=== PATIENT | female | born 1935 | race Asian ===

== ENCOUNTER 2018-01-05 13:28 | Inpatient (IN) | payer MEDICARE, MEDICAID ==
[2018-01-05 15:24] LABS: BASOPHILE ABSOLUTE 0.1 Th/cumm (0-0.2); HEMOGLOBIN 11.1 gm/dL (12-16); LYMPHOCYTE ABSOLUTE 0.7 Th/cmm (1.5-3.0); MANUAL DIFF REQUIRED? YES; MEAN CELL VOLUME 87.5 fl (81-100); MEAN CORPUSCULAR HEMOGLOBIN 29.4 pg (27.0-31.0); MEAN CORPUSCULAR HGB CONC 33.6 pg (28.0-36.0); MEAN PLATELET VOLUME 7.3 fl; MONOCYTE ABSOLUTE 0.2 Th/cmm (0.3-1.0); NEUTROPHILE ABSOLUTE 13.3 Th/cmm (1.8-8.0); PLATELET COUNT 421 Th/cmm (150-400); RED BLOOD COUNT 3.78 Mil/cmm (3.80-5.20); RED CELL DISTRIBUTION WIDTH 16.1 % (11.5-20.0)
[2018-01-05 15:32] LABS: WHITE BLOOD COUNT 14.3 Th/cmm (4.8-10.8)
[2018-01-05 15:43] LABS: ALB/GLOB RATIO 1.1 (1.0-1.8); ALBUMIN 3.4 gm/dL (3.7-5.3); ALKALINE PHOSPHATASE 68 U/L (34-104); ANION GAP 11.7 (7.0-16.0); BILIRUBIN,TOTAL 0.6 mg/dL (0.3-1.0); BUN - UREA NITROGEN 25 mg/dL (7-25); CALCIUM SERUM 9.2 mg/dL (8.6-10.3); CARBON DIOXIDE 28.9 mEq/L (21.0-31.0); CHLORIDE 100 mEq/L (98-107); CHOLESTEROL 252 mg/dL (<200); CREATININE - SERUM 0.9 mg/dL (0.6-1.2); GLUCOSE 118 mg/dL (70-105); HDL -HIGH DENSITY LIPOPROTEIN 57 mg/dL (23-92); POTASSIUM SERUM 4.6 mEq/L (3.5-5.1); SGOT 14 U/L (13-39); SGPT/ALT 14 U/L (7-52); SODIUM SERUM 136 mEq/L (136-145); TOTAL PROTEIN,SERUM 6.6 gm/dL (6.0-8.3); TRIGLYCERIDES 93 mg/dL (<150)
[2018-01-05] MEDS ORDERED: Piperacillin Sodium/Tazobact 3.375 gm Vial IV ONE (16:25)
--- NOTE | 2018-01-05 16:26 | ER Physician Documentation ---
DATE OF SERVICE: EMERGENCY ROOM EVALUATION AND TREATMENT HISTORY OF PRESENT ILLNESS: This is Cantonese female patient, 82, lives in the correction at [facility]. She was brought by [facility] ambulance. The patient's physician is Dr. Casanova. JOB# [id number]
--- NOTE | 2018-01-05 17:11 | ER Physician Documentation ---
DATE OF SERVICE: 01/05/2018 EMERGENCY ROOM EVALUATION AND TREATMENT Triage was done on 1350 hours. The patient was seen at 1410 hours. The patient was brought here from [facility] under the guidance of Dr. Casanova. CHIEF COMPLAINT: Generalized weakness and the patient has had difficulty in breathing, hence the patient was sent over here. The patient does not speak any Prydein[place], she speaks only Cantonese language. The patient was brought over here. The patient herself cannot give any history. According to the daughter, she just gives a little history saying that she is awake and she is alert and she is not having psychosis or Alzheimer disease. HISTORY OF PRESENT ILLNESS: The patient has some generalized weakness in the lower extremity, moving and ambulation is difficult. Other histories are not available. The patient is known to have COPD and hypercapnia. The patient has chronic obstructive lung disease, hypercapnia. She has diabetes mellitus, hypertension, dementia, acute atrial fibrillation, history of respiratory failure. The patient came with this weakness and other findings and the patient has been here. After she came here, the blood pressure, I was told was low but the blood pressure here is 136/74, temperature 97.7, pulse is 99, respirations 18, and oxygen saturation 98%. OTHER HISTORY: Unable to obtain. PAST SURGICAL HISTORY: Unable to obtain. FAMILY HISTORY: Unable to obtain. REVIEW OF SYSTEMS: Unable to obtain. PHYSICAL EXAMINATION: GENERAL: The patient appears to be awake and alert and she closes her eyes. She is adequately built but poorly nourished. No other materials from the other hospital or rehabilitation places are here. The patient conjunctivae appears to be pale. She is not having any irregular movements of the arms or the legs. She has no epilepsy. She moves all the extremities. She is adequately built, poorly nourished. NECK: Neck veins are not distended. Jugular venous pressure is normal. No cyanosis. No petechia. No ecchymosis. CHEST: Reveals trachea to be central. Bilateral scattered rales audible in both the lung grace. The crackles are not heard like the crackles of congestive heart failure. His chest x-ray does not show evidence of congestive heart failure. She may be having chronic bronchitis with bronchiolitis which may be minor infections going on. There are peripheral pulses and sensory appears to be normal. LUNGS: She had bilateral crackles. No bronchial breathing is heard. There is fairly good air entry in both lungs. HEART: Reveals normal heart sounds. Second heart sound is physiologically split. Third heart sound is absent. Fourth heart sound is present. The patient has some irregularity, I can see on the EKG. Frequent PACs are being present and there is evidence that suggest frequent PACs, and there is a history of previous atrial fibrillation, so it is possible that she might be going into atrial fibrillation when she gets any infection in the lungs. CENTRAL NERVOUS SYSTEM: Otherwise grossly normal limits. Moves all the extremities. No evidence of any meningeal signs. CLINICAL IMPRESSION: The patient came with: 1. Hypotension. 2. Weakness. 3. The patient has frequent PACs. 4. Malnutrition. 5. Rule out if there is any pneumonia or any other infection present in her. Rule out if there is any hypothyroidism, electrolyte imbalance, etc. EKG was done, does not show any evidence of myocardial infarction, very, very minor nonspecific ST changes seen in lead V1, V2, not of any clinical significance. Once she gets the lab workup, which has been ordered, we will get more treatment given to her. At the present moment, the patient will be given some IV antibiotic to start with and lab workup has been ordered. [facility]# [id number]
[2018-01-05 17:18] LABS: URINE MICROSCOPIC INDICATED? YES; URINE SOURCE MIDSTREAM
[2018-01-05 17:19] LABS: URINE BILIRUBIN NEGATIVE (NEGATIVE); URINE BLOOD SMALL (NEGATIVE); URINE GLUCOSE (UA) NEGATIVE (NEGATIVE); URINE KETONE NEGATIVE (NEGATIVE); URINE LEUKOCYTE ESTERASE NEGATIVE (NEGATIVE); URINE NITRATE NEGATIVE (NEGATIVE); URINE PH 6.5 (4.6 - 8.0); URINE PROTEIN NEGATIVE (NEGATIVE); URINE UROBILINOGEN 0.2 E.U./dL (0.2 - 1.0)
[2018-01-05 17:38] LABS: URINE CLARITY CLEAR (CLEAR); URINE COLOR YELLOW
[2018-01-05 17:40] LABS: URINE BACTERIA NONE SEEN /hpf (NONE SEEN); URINE EPITHELIAL CELLS NONE SEEN /lpf (FEW); URINE WBC NONE SEEN /hpf (0-5)
[2018-01-05 20:18] LABS: BAND NEUTROPHILE 7 % (0-10); BASOPHIL 0 % (0-3); EOSINOPHIL 0 % (0-5); LYMPHOCYTE 5 % (20-50); MONOCYTE 5 % (2-10); NEUTROPHILS 83 % (40-80); PLATELET ESTIMATE ADEQUATE (NORMAL); PLATELET MORPHOLOGY NORMAL (NORMAL); TOTAL CELLS COUNTED 100
[2018-01-05 21:41] VITALS: BP 143/78
[2018-01-05] MEDS ORDERED: Ipratropium Neb 0.5 mg/2.5 mL UD HHN PRN (21:52)
[2018-01-05] MEDS: Ipratropium Neb 0.5 mg/2.5 mL UD HHN SCH (23:43)
[2018-01-06] MEDS ORDERED: Piperacillin Sodium/Tazobact 2.25 gm Vial IV ONE (02:44)
[2018-01-06] MEDS: Ipratropium Neb 0.5 mg/2.5 mL UD HHN SCH ×6 (03:28→23:31)
[2018-01-06] MEDS: INSULIN ASPART SLIDING SCALE 100 UNITS/ML UNIT SUBQ SCH ×4 (06:35→21:08)
[2018-01-06 06:38] LABS: HEMATOCRIT 33.2 % (41.0-60)
[2018-01-06 06:43] LABS: HEMOGLOBIN 11.5 gm/dL (12-16); MEAN CELL VOLUME 87.3 fl (81-100); MEAN CORPUSCULAR HEMOGLOBIN 30.2 pg (27.0-31.0); MEAN CORPUSCULAR HGB CONC 34.6 pg (28.0-36.0); MEAN PLATELET VOLUME 7.4 fl; PLATELET COUNT 431 Th/cmm (150-400); RED CELL DISTRIBUTION WIDTH 15.8 % (11.5-20.0)
[2018-01-06 06:44] LABS: WHITE BLOOD COUNT 15.1 Th/cmm (4.8-10.8)
[2018-01-06 06:45] LABS: MANUAL DIFF REQUIRED? YES
[2018-01-06 07:25] LABS: ALBUMIN 3.3 gm/dL (3.7-5.3); ALKALINE PHOSPHATASE 62 U/L (34-104); ANION GAP 12.5 (7.0-16.0); BILIRUBIN,TOTAL 0.9 mg/dL (0.3-1.0); BUN - UREA NITROGEN 27 mg/dL (7-25); CALCIUM SERUM 8.8 mg/dL (8.6-10.3); CARBON DIOXIDE 29.9 mEq/L (21.0-31.0); CHLORIDE 101 mEq/L (98-107); CHOLESTEROL 263 mg/dL (<200); GLUCOSE 86 mg/dL (70-105); HDL -HIGH DENSITY LIPOPROTEIN 51 mg/dL (23-92); POTASSIUM SERUM 3.4 mEq/L (3.5-5.1); SGOT 13 U/L (13-39); SGPT/ALT 13 U/L (7-52); SODIUM SERUM 140 mEq/L (136-145); TOTAL PROTEIN,SERUM 6.5 gm/dL (6.0-8.3); TRIGLYCERIDES 94 mg/dL (<150)
[2018-01-06 07:42] LABS: BAND NEUTROPHILE 3 % (0-10); LYMPHOCYTE 7 % (20-50); MONOCYTE 6 % (2-10); NEUTROPHILS 84 % (40-80); TOTAL CELLS COUNTED 100
--- NOTE | 2018-01-06 09:25 | Diagnostic Imaging Report ---
CHEST X-RAY: AP view INDICATION: Pneumonia COMPARISON: None FINDINGS: Chronic lung changes are seen with probable COPD. Increased bibasal lung markings are noted. No focal consolidation or effusions. Heart size is normal. Atherosclerosis is noted. Degenerative changes of the spine are noted. IMPRESSION: Chronic lung changes and probable COPD. Increased bibasilar lung markings also likely chronic in etiology. No focal consolidation identified. Atherosclerotic vascular disease.
--- NOTE | 2018-01-06 12:54 | Consultation ---
Consult Note - Consult Note Service Date: 01/06/18 Referring Physician: Willie Casanova Consult Note: PHYSICIAN Consultation Note: Date of Admission: 01/05/18 Purpose of Consultation: Chief Complaint: History of Present Illness: Patient SARAH ROGERS was admitted to [facility] Medical/Surgical Unit I with LEUKOCYTOSIS,ALOC. Past Medical History: Allergies Allergy/AdvReac Type Severity Reaction Status Date / Time Plastic Tape Allergy Uncoded 01/05/18 14:09 Vital Signs Temp 97.4 F 01/06/18 08:00 Pulse 95 01/06/18 11:06 Resp 12 01/06/18 11:06 BP 143/78 01/06/18 08:00 Pulse Ox 96 01/06/18 11:06 Intake & Output 01/05/18 01/06/18 01/06/18 18:59 06:59 18:59 Intake Total 50 Balance 50 Weight (lbs) 32.568 kg Intake: Intake, IV Amount 50 Piperacillin Sodium/ 50 Tazobact 2.25 gm In Sodium Chloride 0.9% 50 ml @ 100 mls/hr IV 0200, 0800,1400,2000 [facility] Rx#: [id number] Other: # Voids 2 Laboratory Results - last 24 hr 01/05/18 01/06/18 01/06/18 21:04 05:41 06:26 WBC 15.1 H RBC 3.80 Hgb 11.5 L Hct 33.2 L MCV 87.3 MCH 30.2 MCHC Differential 34.6 RDW 15.8 Plt Count 431 H MPV 7.4 Band Neutrophils % 3 Neutrophils (Manual) 84 H Lymphocytes 7 L Monocytes 6 Sodium Potassium Chloride Carbon Dioxide Anion Gap BUN Creatinine Est GFR ( Amer) Est GFR (Non-Af Amer) BUN/Creatinine Ratio Glucose POC Glucose 101 89 Calcium Total Bilirubin AST ALT Alkaline Phosphatase Total Protein Albumin Globulin Albumin/Globulin Ratio Triglycerides Cholesterol LDL Cholesterol Direct HDL Cholesterol 01/06/18 01/06/18 06:26 11:37 WBC RBC Hgb Hct MCV MCH MCHC Differential RDW Plt Count MPV Band Neutrophils % Neutrophils (Manual) Lymphocytes Monocytes Sodium 140 Potassium 3.4 L Chloride 101 Carbon Dioxide 29.9 Anion Gap 12.5 BUN 27 H Creatinine 1.0 Est GFR ( Amer) TNP Est GFR (Non-Af Amer) TNP BUN/Creatinine Ratio 27.0 Glucose 86 POC Glucose 132 H Calcium 8.8 Total Bilirubin 0.9 AST 13 ALT 13 Alkaline Phosphatase 62 Total Protein 6.5 Albumin 3.3 L Globulin 3.2 Albumin/Globulin Ratio 1.0 Triglycerides 94 Cholesterol 263 H LDL Cholesterol Direct 230 H HDL Cholesterol 51 Home Medication Medication Instructions Recorded Type Acetaminophen 325 mg PO Q4HR PRN 01/05/18 History Al Hyd/Mg Hyd/Simethicone [Maalox] 30 ml PO Q6HR PRN 01/05/18 History Ascorbic Acid [Vitamin C] 500 mg PO DAILY 01/05/18 History Bisacodyl [Dulcolax 10 Mg Supp] 10 mg RC DAILY PRN 01/05/18 History Dextrose Oral Gel [Glutose 40%] 15 gm PO PRN PRN 01/05/18 History Enalapril Maleate [Vasotec*] 2.5 mg PO Q6H PRN 01/05/18 History Fleet Enema [Fleet Enema] 135 ml RC DAILY PRN 01/05/18 History Glucagon,Human Recombinant 1 mg IJ PRN PRN 01/05/18 History [Glucagon Emergency Kit] Insulin Human Regular [NovoLIN R] 0 units SUBQ Q6H 01/05/18 History Ipratropium Neb 0.5 mg/2.5 mL 0.5 mg HHN Q8H PRN 01/05/18 History [Atrovent Neb 0.5MG/2.5ML] Levalbuterol HCl [Xopenex] 0.63 mg IH Q4HR 01/05/18 History Magnesium Hydroxide [Milk of 30 ml PO DAILY PRN 01/05/18 History Magnesia] Megestrol Acetate [Megace] 10 ml PO BID 01/05/18 History Multivitamin [Theragran] 1 tab PO DAILY 01/05/18 History Nystatin 1 each TP QSHIFT 01/05/18 History Omeprazole 40 mg PO DAILY 01/05/18 History Ondansetron HCl [Zofran*] 4 mg PO Q6H PRN 01/05/18 History Pantoprazole [Protonix] 40 mg PO DAILY 01/05/18 History Prednisone [Deltasone] 20 mg PO DAILY 01/05/18 History QUEtiapine Fumarate [SEROquel] 25 mg PO BID 01/05/18 History Zolpidem Tartrate [Ambien] 5 mg PO HS PRN 01/05/18 History cloNIDine HCl [Catapres] 0.1 mg PO DAILY 01/05/18 History Current Medications Generic Name Dose Route Start Last Admin Trade Name Freq PRN Reason Stop Dose Admin Acetaminophen 325 mg 01/05/18 21:51 Tylenol PO 03/06/18 21:50 Q4H PRN MILD PAIN/TEMP ABOVE 101 Enalapril Maleate 2.5 mg 01/05/18 21:48 Vasotec PO 03/07/18 00:00 Q6HR PRN FOR SPB ABOVE 160 Vancomycin HCl 1 gm/ Sodium 250 mls @ 165 mls/hr 01/05/18 21:35 Chloride IV 03/06/18 21:34 Q24H HARRIET Piperacillin Sod/Tazobactam 50 mls @ 100 mls/hr 01/06/18 02:00 01/06/18 08:51 Sod 2.25 gm/ Sodium Chloride IV 03/07/18 01:59 100 mls/hr 0200,0800,1400,2000 HARRIET Administration Insulin Aspart 0 units 01/06/18 07:30 01/06/18 12:50 Novolog Insulin Sliding Scale SUBQ 03/07/18 07:29 Not Given ACHS HARRIET Protocol Ipratropium [place] 0.5 mg 01/05/18 21:52 Atrovent Neb 0.5mg/2.5ml N 03/07/18 00:59 Q6HRT PRN Shortness of Breath Ipratropium [place] 0.5 mg 01/05/18 23:00 01/06/18 11:05 Atrovent Neb 0.5mg/2.5ml N 03/06/18 22:59 0.5 mg Q4HRT HARRIET Administration Review of Systems: A 12 point ROS was reviewed with the pertinent positive and negatives noted in the HPI. Social History Smoking Status Smoker, status unknown Drug Use No Alcohol Use No Family Medical History Family Medical History Start: 01/05/18 19: 43 Freq: ONCE Status: Active Document 01/05/18 23:18 SURESH (Rec: 01/05/18 23:18 SURESH [id number]) Family Medical History Father History Unknown Yes Physical Exam: General: Comfortable, well-nourished. Confused. Supple, no Tia, no icterus. Muscles. HEENT: Head: Normocytic, atraumatic. Oral cavity: Moist, pink eyes: Pallor is present icterus. Neck: Supple, no JVD TO be. Cardio: S1 and S2 within normal limits regular rhythm. Respiratory: Vesicular breath sound, no crackles no wheezing. Abdominal: Soft, nontender nondistended Genital/Urinary: Deferred Extremities: No cyanosis, no clubbing, no edema. Neurological: Alert and confused. Assessment: 1. UTI. 2. Leukocytosis. 3. Dementia Plan: Continue Zosyn and discontinue vancomycin. Follow the cultures. Thank you, Dr. Casanova, for involving taking care of this patient Signed, Inocencio Gutierrez M.D. [id number]
--- NOTE | 2018-01-06 14:08 | Consultation ---
Consult Note - Consult Note Service Date: 01/06/18 Referring Physician: Willie Casanova Consult Note: PHYSICIAN Consultation Note: Date of Admission: 01/05/18 Purpose of Consultation: Chief Complaint: Patient SARAH ROGERS was admitted to location Medical/Surgical Unit I with LEUKOCYTOSIS,ALOC. History of Present Illness:52-year-old female with a past medical history of dementia, confusion noted from nursing facility for generalized weakness. On initial evaluation, her temperature was 97.7F and her WBC count was 14,000. Sepsis workup was performed and urinalysis is a 68. Patient was started on vancomycin and Zosyn. ID consult was called for antibiotic management. Past Medical History: Dementia, COPD. Allergies Allergy/AdvReac Type Severity Reaction Status Date / Time Plastic Tape Allergy Uncoded 01/05/18 14:09 Vital Signs Temp 97.4 F 01/06/18 08:00 Pulse 95 01/06/18 11:06 Resp 12 01/06/18 11:06 BP 143/78 01/06/18 08:00 Pulse Ox 96 01/06/18 11:06 Intake & Output 01/05/18 01/06/18 01/06/18 18:59 06:59 18:59 Intake Total 50 50 Balance 50 50 Weight (lbs) 32.568 kg Intake: Intake, IV Amount 50 50 Piperacillin Sodium/ 50 50 Tazobact 2.25 gm In Sodium Chloride 0.9% 50 ml @ 100 mls/hr IV 0200, 0800,1400,2000 [facility] Rx#: [id number] Other: # Voids 2 Laboratory Results - last 24 hr 01/05/18 01/06/18 01/06/18 21:04 05:41 06:26 WBC 15.1 H RBC 3.80 Hgb 11.5 L Hct 33.2 L MCV 87.3 MCH 30.2 MCHC Differential 34.6 RDW 15.8 Plt Count 431 H MPV 7.4 Band Neutrophils % 3 Neutrophils (Manual) 84 H Lymphocytes 7 L Monocytes 6 Sodium Potassium Chloride Carbon Dioxide Anion Gap BUN Creatinine Est GFR ( Amer) Est GFR (Non-Af Amer) BUN/Creatinine Ratio Glucose POC Glucose 101 89 Calcium Total Bilirubin AST ALT Alkaline Phosphatase Total Protein Albumin Globulin Albumin/Globulin Ratio Triglycerides Cholesterol LDL Cholesterol Direct HDL Cholesterol 01/06/18 01/06/18 06:26 11:37 WBC RBC Hgb Hct MCV MCH MCHC Differential RDW Plt Count MPV Band Neutrophils % Neutrophils (Manual) Lymphocytes Monocytes Sodium 140 Potassium 3.4 L Chloride 101 Carbon Dioxide 29.9 Anion Gap 12.5 BUN 27 H Creatinine 1.0 Est GFR ( Amer) TNP Est GFR (Non-Af Amer) TNP BUN/Creatinine Ratio 27.0 Glucose 86 POC Glucose 132 H Calcium 8.8 Total Bilirubin 0.9 AST 13 ALT 13 Alkaline Phosphatase 62 Total Protein 6.5 Albumin 3.3 L Globulin 3.2 Albumin/Globulin Ratio 1.0 Triglycerides 94 Cholesterol 263 H LDL Cholesterol Direct 230 H HDL Cholesterol 51 Home Medication Medication Instructions Recorded Type Acetaminophen 325 mg PO Q4HR PRN 01/05/18 History Al Hyd/Mg Hyd/Simethicone [Maalox] 30 ml PO Q6HR PRN 01/05/18 History Ascorbic Acid [Vitamin C] 500 mg PO DAILY 01/05/18 History Bisacodyl [Dulcolax 10 Mg Supp] 10 mg RC DAILY PRN 01/05/18 History Dextrose Oral Gel [Glutose 40%] 15 gm PO PRN PRN 01/05/18 History Enalapril Maleate [Vasotec*] 2.5 mg PO Q6H PRN 01/05/18 History Fleet Enema [Fleet Enema] 135 ml RC DAILY PRN 01/05/18 History Glucagon,Human Recombinant 1 mg IJ PRN PRN 01/05/18 History [Glucagon Emergency Kit] Insulin Human Regular [NovoLIN R] 0 units SUBQ Q6H 01/05/18 History Ipratropium Neb 0.5 mg/2.5 mL 0.5 mg HHN Q8H PRN 01/05/18 History [Atrovent Neb 0.5MG/2.5ML] Levalbuterol HCl [Xopenex] 0.63 mg IH Q4HR 01/05/18 History Magnesium Hydroxide [Milk of 30 ml PO DAILY PRN 01/05/18 History Magnesia] Megestrol Acetate [Megace] 10 ml PO BID 01/05/18 History Multivitamin [Theragran] 1 tab PO DAILY 01/05/18 History Nystatin 1 each TP QSHIFT 01/05/18 History Omeprazole 40 mg PO DAILY 01/05/18 History Ondansetron HCl [Zofran*] 4 mg PO Q6H PRN 01/05/18 History Pantoprazole [Protonix] 40 mg PO DAILY 01/05/18 History Prednisone [Deltasone] 20 mg PO DAILY 01/05/18 History QUEtiapine Fumarate [SEROquel] 25 mg PO BID 01/05/18 History Zolpidem Tartrate [Ambien] 5 mg PO HS PRN 01/05/18 History cloNIDine HCl [Catapres] 0.1 mg PO DAILY 01/05/18 History Current Medications Generic Name Dose Route Start Last Admin Trade Name Freq PRN Reason Stop Dose Admin Acetaminophen 325 mg 01/05/18 21:51 Tylenol PO 03/06/18 21:50 Q4H PRN MILD PAIN/TEMP ABOVE 101 Enalapril Maleate 2.5 mg 01/05/18 21:48 Vasotec PO 03/07/18 00:00 Q6HR PRN FOR SPB ABOVE 160 Vancomycin HCl 1 gm/ Sodium 250 mls @ 165 mls/hr 01/05/18 21:35 Chloride IV 03/06/18 21:34 Q24H HARRIET Piperacillin Sod/Tazobactam 50 mls @ 100 mls/hr 01/06/18 02:00 01/06/18 13:29 Sod 2.25 gm/ Sodium Chloride IV 03/07/18 01:59 100 mls/hr 0200,0800,1400,2000 HARRIET Administration Insulin Aspart 0 units 01/06/18 07:30 01/06/18 12:50 Novolog Insulin Sliding Scale SUBQ 03/07/18 07:29 Not Given ACHS [facility] Protocol Ipratropium [place] 0.5 mg 01/05/18 21:52 Atrovent Neb 0.5mg/2.5ml N 03/07/18 00:59 Q6HRT PRN Shortness of Breath Ipratropium [place] 0.5 mg 01/05/18 23:00 01/06/18 11:05 Atrovent Neb 0.5mg/2.5ml N 03/06/18 22:59 0.5 mg Q4HRT HARRIET Administration Review of Systems: A 12 point ROS was reviewed with the pertinent positive and negatives noted in the HPI. Social History Smoking Status Smoker, status unknown Drug Use No Alcohol Use No Family Medical History Family Medical History Start: 01/05/18 19: 43 Freq: ONCE Status: Active Document 01/05/18 23:18 SURESH (Rec: 01/05/18 23:18 SURESH [id number]) Family Medical History Father History Unknown Yes General: Comfortable, well-nourished. Confused. Supple, no Tia, no icterus. Muscles. HEENT: Head: Normocytic, atraumatic. Oral cavity: Moist, pink eyes: Pallor is present icterus. Neck: Supple, no JVD TO be. Cardio: S1 and S2 within normal limits regular rhythm. Respiratory: Vesicular breath sound, no crackles no wheezing. Abdominal: Soft, nontender nondistended Genital/Urinary: Deferred Extremities: No cyanosis, no clubbing, no edema. Neurological: Alert and confused. Assessment: 1. UTI. 2. Leukocytosis. 3. Dementia Plan: Continue Zosyn and discontinue vancomycin. Follow the cultures. Thank you, Dr. Casanova, for involving me in taking care of this patient Signed, Inocencio Gutierrez M.D. [id number]
[2018-01-06] MEDS ORDERED: ENALAPRIL MALEATE 2.5 MG PO PRN (14:17)
[2018-01-06] MEDS ORDERED: Fleet Enema 135 mL RC PRN (14:17)
[2018-01-06] MEDS ORDERED: Non-Formulary Item 1 EA (Ondansetron Hcl [Zofran*] 4 MG) PO PRN (14:17)
[2018-01-06] MEDS ORDERED: Magnesium Hydroxide (MOM) 30 mL UDC PO PRN (14:17)
[2018-01-06] MEDS ORDERED: Maalox 30 mL Cup PO PRN (14:17)
[2018-01-06] MEDS ORDERED: Non-Formulary Item 1 EA (Glucagon,Human Recombinant [Glucagon Emergency Kit] 1 MG) IJ PRN (14:17)
[2018-01-06] MEDS ORDERED: Ipratropium Neb 0.5 mg/2.5 mL UD HHN PRN (14:17)
[2018-01-06] MEDS ORDERED: INSULIN HUMAN REGULAR 100 UNITS/ML UNIT SUBQ SCH (14:30)
--- NOTE | 2018-01-06 14:43 | Consultation ---
Consult Note - Consult Note Service Date: 01/06/18 Referring Physician: Willie Casanova Consult Note: PHYSICIAN Consultation Note: Date of Admission: 01/05/18 Purpose of Consultation: Pneumonia. Chief Complaint: Patient SARAH ROGERS was admitted to location [facility] Unit I with LEUKOCYTOSIS,ALOC. History of Present Illness: 52-year-old female with a past medical history of dementia, noted from nursing facility for generalized weakness. On initial evaluation, her temperature was 97.7F and her WBC count was 14,000. Sepsis workup was performed. Patient was started on vancomycin and Zosyn. ID consult was called for antibiotic management. Chest x-ray showed chronic infiltrates. Past Medical History: Allergies Allergy/AdvReac Type Severity Reaction Status Date / Time Plastic Tape Allergy Uncoded 01/05/18 14:09 Vital Signs Temp 97.4 F 01/06/18 08:00 Pulse 95 01/06/18 11:06 Resp 12 01/06/18 11:06 BP 143/78 01/06/18 08:00 Pulse Ox 96 01/06/18 11:06 Intake & Output 01/05/18 01/06/18 01/06/18 18:59 06:59 18:59 Intake Total 50 50 Balance 50 50 Weight (lbs) 32.568 kg Intake: Intake, IV Amount 50 50 Piperacillin Sodium/ 50 50 Tazobact 2.25 gm In Sodium Chloride 0.9% 50 ml @ 100 mls/hr IV 0200, 0800,1400,2000 [facility] Rx#: [id number] Other: # Voids 2 Laboratory Results - last 24 hr 01/05/18 01/06/18 01/06/18 21:04 05:41 06:26 WBC 15.1 H RBC 3.80 Hgb 11.5 L Hct 33.2 L MCV 87.3 MCH 30.2 MCHC Differential 34.6 RDW 15.8 Plt Count 431 H MPV 7.4 Band Neutrophils % 3 Neutrophils (Manual) 84 H Lymphocytes 7 L Monocytes 6 Sodium Potassium Chloride Carbon Dioxide Anion Gap BUN Creatinine Est GFR ( Amer) Est GFR (Non-Af Amer) BUN/Creatinine Ratio Glucose POC Glucose 101 89 Calcium Total Bilirubin AST ALT Alkaline Phosphatase Total Protein Albumin Globulin Albumin/Globulin Ratio Triglycerides Cholesterol LDL Cholesterol Direct HDL Cholesterol 01/06/18 01/06/18 06:26 11:37 WBC RBC Hgb Hct MCV MCH MCHC Differential RDW Plt Count MPV Band Neutrophils % Neutrophils (Manual) Lymphocytes Monocytes Sodium 140 Potassium 3.4 L Chloride 101 Carbon Dioxide 29.9 Anion Gap 12.5 BUN 27 H Creatinine 1.0 Est GFR ( Amer) TNP Est GFR (Non-Af Amer) TNP BUN/Creatinine Ratio 27.0 Glucose 86 POC Glucose 132 H Calcium 8.8 Total Bilirubin 0.9 AST 13 ALT 13 Alkaline Phosphatase 62 Total Protein 6.5 Albumin 3.3 L Globulin 3.2 Albumin/Globulin Ratio 1.0 Triglycerides 94 Cholesterol 263 H LDL Cholesterol Direct 230 H HDL Cholesterol 51 Home Medication Medication Instructions Recorded Type Acetaminophen 325 mg PO Q4HR PRN 01/05/18 History Al Hyd/Mg Hyd/Simethicone [Maalox] 30 ml PO Q6HR PRN 01/05/18 History Ascorbic Acid [Vitamin C] 500 mg PO DAILY 01/05/18 History Bisacodyl [Dulcolax 10 Mg Supp] 10 mg RC DAILY PRN 01/05/18 History Dextrose Oral Gel [Glutose 40%] 15 gm PO PRN PRN 01/05/18 History Enalapril Maleate [Vasotec*] 2.5 mg PO Q6H PRN 01/05/18 History Fleet Enema [Fleet Enema] 135 ml RC DAILY PRN 01/05/18 History Glucagon,Human Recombinant 1 mg IJ PRN PRN 01/05/18 History [Glucagon Emergency Kit] Insulin Human Regular [NovoLIN R] 0 units SUBQ Q6H 01/05/18 History Ipratropium Neb 0.5 mg/2.5 mL 0.5 mg HHN Q8H PRN 01/05/18 History [Atrovent Neb 0.5MG/2.5ML] Levalbuterol HCl [Xopenex] 0.63 mg IH Q4HR 01/05/18 History Magnesium Hydroxide [Milk of 30 ml PO DAILY PRN 01/05/18 History Magnesia] Megestrol Acetate [Megace] 10 ml PO BID 01/05/18 History Multivitamin [Theragran] 1 tab PO DAILY 01/05/18 History Nystatin 1 each TP QSHIFT 01/05/18 History Omeprazole 40 mg PO DAILY 01/05/18 History Ondansetron HCl [Zofran*] 4 mg PO Q6H PRN 01/05/18 History Pantoprazole [Protonix] 40 mg PO DAILY 01/05/18 History Prednisone [Deltasone] 20 mg PO DAILY 01/05/18 History QUEtiapine Fumarate [SEROquel] 25 mg PO BID 01/05/18 History Zolpidem Tartrate [Ambien] 5 mg PO HS PRN 01/05/18 History cloNIDine HCl [Catapres] 0.1 mg PO DAILY 01/05/18 History Current Medications Generic Name Dose Route Start Last Admin Trade Name Freq PRN Reason Stop Dose Admin Acetaminophen 325 mg 01/05/18 21:51 Tylenol PO 03/06/18 21:50 Q4H PRN MILD PAIN/TEMP ABOVE 101 Acetaminophen 325 mg 01/06/18 14:17 Tylenol PO 03/07/18 14:16 Q4HR PRN Pain or Fever >101 Al Hydrox/Mg Hydrox/Simethicone 30 ml 01/06/18 14:17 Maalox PO 03/07/18 14:16 Q6HR PRN Indigestion Ascorbic Acid 500 mg 01/07/18 09:00 Vitamin C PO 03/08/18 08:59 DAILY [facility] Bisacodyl 10 mg 01/06/18 14:17 Dulcolax 10 Mg Supp RC 03/07/18 14:16 DAILY PRN Constipation Dextrose 15 gm 01/06/18 14:17 Glutose 40% PO 03/07/18 14:16 PRN PRN Hypoglycemia Enalapril Maleate 2.5 mg 01/05/18 21:48 Vasotec PO 03/07/18 00:00 Q6HR PRN FOR SPB ABOVE 160 Vancomycin HCl 1 gm/ Sodium 250 mls @ 165 mls/hr 01/05/18 21:35 Chloride IV 03/06/18 21:34 Q24H [facility] Piperacillin Sod/Tazobactam 50 mls @ 100 mls/hr 01/06/18 02:00 01/06/18 13:29 Sod 2.25 gm/ Sodium Chloride IV 03/07/18 01:59 100 mls/hr 0200,0800,1400,2000 [facility] Administration Insulin Aspart 0 units 01/06/18 07:30 01/06/18 12:50 Novolog Insulin Sliding Scale SUBQ 03/07/18 07:29 Not Given ACHS [facility] Protocol Insulin Human Regular 0 units 01/06/18 14:30 Novolin R SUBQ 03/07/18 14:29 Q6H [facility] Protocol Ipratropium [place] 0.5 mg 01/05/18 21:52 Atrovent Neb 0.5mg/2.5ml N 03/07/18 00:59 Q6HRT PRN Shortness of Breath Ipratropium [place] 0.5 mg 01/05/18 23:00 01/06/18 11:05 Atrovent Neb 0.5mg/2.5ml HHN 03/06/18 22:59 0.5 mg Q4HRT [facility] Administration Ipratropium [place] 0.5 mg 01/06/18 14:17 Atrovent Neb 0.5mg/2.5ml N 03/07/18 14:16 Q8H PRN COPD Magnesium Hydroxide 30 ml 01/06/18 14:17 Milk Of Magnesia PO 03/07/18 14:16 DAILY PRN Constipation Miscellaneous 2.5 mg 01/06/18 14:17 Enalapril Maleate [Vasotec*] PO Q6H PRN Hypertension Miscellaneous 1 mg 01/06/18 14:17 Glucagon,Human Recombinant [Glucagon Emergency Kit] IJ PRN PRN Hypoglycemia Miscellaneous 0.63 mg 01/06/18 16:00 Levalbuterol Hcl [Xopenex] IH 03/07/18 15:59 Q4HR [facility] Miscellaneous 10 ml 01/06/18 17:00 Megestrol Acetate [Megace] PO 03/07/18 16:59 BID [facility] Miscellaneous 1 each 01/06/18 20:00 Nystatin [Nystatin] TP 03/07/18 19:59 QSHIFT [facility] Miscellaneous 40 mg 01/07/18 09:00 Omeprazole [Omeprazole] PO 03/08/18 08:59 DAILY [facility] Miscellaneous 4 mg 01/06/18 14:17 Ondansetron Hcl [Zofran*] PO Q6H PRN Nausea Miscellaneous 20 mg 01/07/18 09:00 Prednisone [Deltasone] PO 03/08/18 08:59 DAILY [facility] Multivitamins/Vitamin C 1 tab 01/07/18 09:00 Theragran PO 03/08/18 08:59 DAILY [facility] Pantoprazole Sodium 40 mg 01/07/18 09:00 Protonix PO 03/08/18 08:59 DAILY [facility] Quetiapine Fumarate 25 mg 01/06/18 17:00 Seroquel PO 03/07/18 16:59 BID [facility] Protocol Sodium Phosphate 135 ml 01/06/18 14:17 Fleet Enema RC 03/07/18 14:16 DAILY PRN Constipation Zolpidem Tartrate 5 mg 01/06/18 14:17 Ambien PO 03/07/18 14:16 HS PRN Insomnia Review of Systems: A 12 point ROS was reviewed with the pertinent positive and negatives noted in the HPI. Social History Smoking Status Smoker, status unknown Drug Use No Alcohol Use No Family Medical History Family Medical History Start: 01/05/18 19: 43 Freq: ONCE Status: Active Document 01/05/18 23:18 SURESH (Rec: 01/05/18 23:18 SURESH [id number]) Family Medical History Father History Unknown Yes Physical Exam: General: Comfortable, well-nourished. Confused. Supple, no Tia, no icterus. Muscles. HEENT: Head: Normocytic, atraumatic. Oral cavity: Moist, pink eyes: Pallor is present icterus. Neck: Supple, no JVD TO be. Cardio: S1 and S2 within normal limits regular rhythm. Respiratory: Vesicular breath sound, no crackles no wheezing. Abdominal: Soft, nontender nondistended Genital/Urinary: Deferred Extremities: No cyanosis, no clubbing, no edema. Neurological: Alert and awake. Assessment: 1. Leukocytosis. 2. Pneumonia. 3. Dementia Plan: Change antibiotic to Levaquin. Follow the cultures. Thank you, Dr. Casanova, for involving me in taking care of this patient Signed, Inocencio Gutierrez M.D. [id number]
[2018-01-06] MEDS ORDERED: GLUCAGON HCl 1 MG KIT IM PRN (15:48)
[2018-01-06] MEDS ORDERED: Non-Formulary Item 1 EA (Levalbuterol Hcl [Xopenex] 0.63 MG) IH SCH (16:00)
[2018-01-06] MEDS ORDERED: MEGESTROL ACETATE PO SCH (17:00)
--- NOTE | 2018-01-06 17:05 | History & Physical ---
ADMIT DATE: 01/05/2018 HISTORY OF PRESENT ILLNESS: The patient is an 82-year-old female patient was brought to the Emergency Room with altered level of consciousness, history of dementia, was found to have pneumonia. A 82-year-old female patient, patient was recently admitted at [facility], was at [place] now and apparently developed slight fever and the patient was altered. The patient was sent to the ER in [place] where a workup was done, which showed white count was 14,000 and chest x-ray showed some infiltrate, acute on chronic and the patient was started on vancomycin and Zosyn and the patient was admitted. PAST MEDICAL HISTORY: As enumerated above, prior history of hypertension and the patient has history of dementia. PHYSICAL EXAMINATION: GENERAL: The patient is comfortable, was confused. HEENT: Normal. NECK: Supple, nontender. LUNGS: Clear. CARDIOVASCULAR SYSTEM: S1, S2 heard. ABDOMEN: Soft. Bowel sounds are heard. CENTRAL NERVOUS SYSTEM: Grossly normal, alert, awake. DIAGNOSES: 1. Leukocytosis. 2. Altered level of consciousness, possible sepsis, history of pneumonia, dementia. PLAN: The patient will be admitted and I will continue the antibiotic and will have Dr. Inocencio Gutierrez see the patient. I will follow the patient. [facility]# [id number]
[2018-01-06] MEDS: Levofloxacin 250mg/50mL 250 MG/50 ML BAG IV SCH (17:15)
[2018-01-06] MEDS ORDERED: Non-Formulary Item 1 EA (Nystatin [Nystatin] 1 EACH) TP SCH (20:00)
[2018-01-06] MEDS: NYSTATIN 100000 UNITS/GM POWD TP SCH (21:00)
[2018-01-07] MEDS: Ipratropium Neb 0.5 mg/2.5 mL UD HHN SCH ×6 (03:00→22:54)
[2018-01-07 06:45] LABS: ANION GAP 11.1 (7.0-16.0); BUN - UREA NITROGEN 31 mg/dL (7-25); CALCIUM SERUM 8.2 mg/dL (8.6-10.3); CARBON DIOXIDE 27.8 mEq/L (21.0-31.0); CHLORIDE 104 mEq/L (98-107); CREATININE - SERUM 0.9 mg/dL (0.6-1.2); GLUCOSE 88 mg/dL (70-105); MAGNESIUM 2.2 mg/dL (1.9-2.7); SODIUM SERUM 140 mEq/L (136-145)
[2018-01-07 06:50] LABS: POTASSIUM SERUM 2.9 mEq/L (3.5-5.1)
[2018-01-07] MEDS: INSULIN ASPART SLIDING SCALE 100 UNITS/ML UNIT SUBQ SCH ×4 (06:59→22:00)
[2018-01-07] MEDS ORDERED: Potassium Chloride 20 mEq ER Tab PO ONE (07:03)
--- NOTE | 2018-01-07 08:01 | Consultation ---
DATE OF CONSULTATION: 01/05/2018 HISTORY OF PRESENT ILLNESS: This is an 82-year-old female was seen and examined. The patient was admitted to the Emergency Room with altered level of consciousness, transferred from custodial. There is a history of recent pneumonia. We have evaluated in the Emergency Room and then admitted. She was found to have leukocytosis, WBC count was 14,000. Chest x-ray has shown some infiltrate. The patient does have a history of COPD, history of hypertension, history of hyperlipidemia, dementia. PAST MEDICAL HISTORY: Not available from the patient. FAMILY HISTORY: Not available from the patient. SOCIAL HISTORY: Not available from the patient. REVIEW OF SYSTEMS: Not available from the patient. PHYSICAL EXAMINATION: VITAL SIGNS: Heart rate is 105, blood pressure is 143/78, the highest blood pressure was 179/90, respirations 18, temperature 97.4. SKIN: Normal. HEAD: Normocephalic. EYES: Conjunctivae were pink. There is no icterus in the eyes. Pupils equally reactive to light. NECK: There was no increased jugular venous distention, no thyromegaly, no lymphadenopathy. Carotids equal both sides. CHEST: Bilaterally symmetrical. Moved well with respiration. Respiratory movements equal both sides. Trachea is central. There is note to percussion. Breath sound revealed bilateral rales. CARDIOVASCULAR SYSTEM: PMI not well localized and no pulsation or thrill. No parasternal heave. S1 normal. S2 physiologic. There was no S3, no rub. ABDOMEN: Soft, no tenderness, no rigidity, no guarding and no organomegaly. Bowel sounds normal. EXTREMITIES: No edema. No calf tenderness. Peripheral pulses diminished. LABORATORY AND DIAGNOSTIC DATA: On reviewing the chart, chest x-ray has shown chronic lung changes, probably COPD, increased bibasilar lung markings, most likely chronic in etiology, arteriosclerotic vascular disease. WBC count is 15.1, hemoglobin 11.5, hematocrit 32.2, platelet count 431. Sodium 140, potassium 3.4, chloride 101, CO2 29.9, BUN 27, creatinine 1.0. Cholesterol was 263, triglyceride 94, HDL 51, LDL 230, T4 was 1.40. TSH 0.21. Lactic acid 1.41, magnesium 2.2. BNP 47.4. Troponin 0.04. IMPRESSION: Altered level of consciousness, pneumonia, leukocytosis, COPD, hypertension, hyperlipidemia, dementia. Suggest to continue present management. We will get echocardiogram to evaluate left ventricular function and valvular structure and also get TSH. We will add Crestor 20 mg daily for hyperlipidemia. Aspirin may be added if no contraindication. The patient should be on beta vini and ARB. Thank you. We will follow with you as needed. Dr. Alexandre Gutierrez will be following her. JOB# [id number]
[2018-01-07] MEDS: NYSTATIN 100000 UNITS/GM POWD TP SCH ×2 (08:50→21:00)
[2018-01-07] MEDS: Multivitamin Tab PO SCH (08:51)
[2018-01-07] MEDS: Pantoprazole 40 mg EC Tab PO SCH (08:51)
[2018-01-07] MEDS ORDERED: Pantoprazole 40 mg/Packet PO SCH (09:00)
[2018-01-07] MEDS ORDERED: PREDNISONE 20 MG PO SCH (09:00)
[2018-01-07] MEDS ORDERED: Non-Formulary Item 1 EA (Omeprazole [Omeprazole] 40 MG) PO SCH (09:00)
--- NOTE | 2018-01-07 12:24 | Internal Medicine Prog Note ---
Internal Medicine Subjective - Subjective Service Date: 01/07/18 Patient seen and examined:: with staff Patient is:: awake Per staff patient has:: tolerating meds Internal Medicine Objective - Results Result Diagrams: 01/06/18 06:26 01/07/18 05:42 Recent Labs: Laboratory Last Values WBC 15.1 Th/cmm (4.8-10.8) H 01/06/18 06:26 RBC 3.80 Mil/cmm (3.80-5.20) 01/06/18 06:26 Hgb 11.5 gm/dL (12-16) L 01/06/18 06:26 Hct 33.2 % (41.0-60) L 01/06/18 06:26 MCV 87.3 fl (81-100) 01/06/18 06:26 MCH 30.2 pg (27.0-31.0) 01/06/18 06: MCHC Differential 34.6 pg (28.0-36.0) 01/06/18 06:26 RDW 15.8 % (11.5-20.0) 01/06/18 06:26 Plt Count 431 Th/cmm (150-400) H 01/06/18 06:26 MPV 7.4 fl 01/06/18 06:26 Band Neutrophils % 3 % (0-10) 01/06/18 06:26 Neutrophils (Manual) 84 % (40-80) H 01/06/18 06:26 Lymphocytes 7 % (20-50) L 01/06/18 06:26 Monocytes 6 % (2-10) 01/06/18 06:26 Eosinophils 0 % (0-5) 01/05/18 15:14 Basophils 0 % (0-3) 01/05/18 15:14 Platelet Estimate ADEQUATE (NORMAL) 01/05/18 15:14 Platelet Morphology NORMAL (NORMAL) 01/05/18 15:14 RBC Morph Micro Appear NORMAL (NORMAL) 01/05/18 15:14 Sodium 140 mEq/L (136-145) 01/07/18 05:42 Potassium 2.9 mEq/L (3.5-5.1) L* 01/07/18 05:42 Chloride 104 mEq/L (98-107) 01/07/18 05:42 Carbon Dioxide 27.8 mEq/L (21.0-31.0) 01/07/18 05:42 Anion Gap 11.1 (7.0-16.0) 01/07/18 05:42 BUN 31 mg/dL (7-25) H 01/07/18 05:42 Creatinine 0.9 mg/dL (0.6-1.2) 01/07/18 05:42 Est GFR ( Amer) TNP 01/07/18 05:42 Est GFR (Non-Af Amer) TNP 01/07/18 05:42 BUN/Creatinine Ratio 34.4 01/07/18 05:42 Glucose 88 mg/dL (70-105) 01/07/18 05:42 POC Glucose 82 MG/DL (70 - 105) 01/07/18 06:00 Whole Bld Lactic Acid 1.41 mmol/L (0.60-1.99) 01/05/18 15:14 Calcium 8.2 mg/dL (8.6-10.3) L 01/07/18 05:42 Magnesium 2.2 mg/dL (1.9-2.7) 01/07/18 05:42 Total Bilirubin 0.9 mg/dL (0.3-1.0) 01/06/18 06:26 AST 13 U/L (13-39) 01/06/18 06:26 ALT 13 U/L (7-52) 01/06/18 06:26 Alkaline Phosphatase 62 U/L (34-104) 01/06/18 06:26 Troponin I 0.04 ng/mL (0.01-0.05) 01/05/18 15:14 B-Natriuretic Peptide 47.4 pg/mL (5.0-100.0) 01/05/18 15:14 Total Protein 6.5 gm/dL (6.0-8.3) 01/06/18 06:26 Albumin 3.3 gm/dL (3.7-5.3) L 01/06/18 06:26 Globulin 3.2 gm/dL 01/06/18 06:26 Albumin/Globulin Ratio 1.0 (1.0-1.8) 01/06/18 06:26 Triglycerides 94 mg/dL (<150) 01/06/18 06:26 Cholesterol 263 mg/dL (<200) H 01/06/18 06:26 LDL Cholesterol Direct 230 mg/dL (75-193) H 01/06/18 06:26 HDL Cholesterol 51 mg/dL (23-92) 01/06/18 06:26 Free T4 1.40 ng/dL (0.82-1.77) 01/05/18 15:14 TSH 0.23 uIU/ml (0.34-5.60) L 01/07/18 05:42 Urine Source MIDSTREAM 01/05/18 14:30 Urine Color YELLOW 01/05/18 14:30 Urine Clarity CLEAR (CLEAR) 01/05/18 14:30 Urine pH 6.5 (4.6 - 8.0) 01/05/18 14:30 Ur Specific [place] 1.020 (1.005-1.030) 01/05/18 14:30 Urine Protein NEGATIVE mg/dL (NEGATIVE) 01/05/18 14:30 Urine Glucose (UA) NEGATIVE mg/dL (NEGATIVE) 01/05/18 14:30 Urine Ketones NEGATIVE mg/dL (NEGATIVE) 01/05/18 14:30 Urine Blood SMALL (NEGATIVE) H 01/05/18 14:30 Urine Nitrate NEGATIVE (NEGATIVE) 01/05/18 14:30 Urine Bilirubin NEGATIVE (NEGATIVE) 01/05/18 14:30 Urine Urobilinogen 0.2 E.U./dL (0.2 - 1.0) 01/05/18 14:30 Ur Leukocyte Esterase NEGATIVE (NEGATIVE) 01/05/18 14:30 Urine RBC 5-10 /hpf (0-5) H 01/05/18 14:30 Urine WBC NONE SEEN /hpf (0-5) 01/05/18 14:30 Ur Epithelial Cells NONE SEEN /lpf (FEW) 01/05/18 14:30 Urine Bacteria NONE SEEN /hpf (NONE SEEN) 01/05/18 14:30 Random Vancomycin 12.2 ug/mL (5.0-40.0) 01/06/18 20:58 - Physical Exam Vitals and I&O: Vital Signs Temp 97.4 F 01/07/18 04:00 Pulse 108 01/07/18 10:51 Resp 22 01/07/18 10:51 BP 156/70 01/07/18 04:00 Pulse Ox 99 01/07/18 10:51 Intake & Output 01/06/18 01/07/18 01/07/18 18:59 06:59 18:59 Intake Total 450 220 Balance 450 220 Weight (lbs) 71 lb 8 oz 70 lb Intake: Intake, IV Amount 50 100 Levofloxacin 250mg/50mL 50 250 mg In 50 ml @ 50 mls/ hr IV Q24HR [facility] Rx#: [id number] Piperacillin Sodium/ 50 Tazobact 2.25 gm In Sodium Chloride 0.9% 50 ml @ 100 mls/hr IV 0200, 0800,1400,2000 [facility] Rx#: [id number] Oral 400 120 Other: # Voids 3 2 # Bowel Movements 1 0 Active Medications: Current Medications Acetaminophen (Tylenol) 325 mg PO Q4H PRN PRN Reason: MILD PAIN/TEMP ABOVE 101 Stop: 03/06/18 21:50 Al Hydrox/Mg Hydrox/Simethicone (Maalox) 30 ml PO Q6HR PRN PRN Reason: Indigestion Stop: 03/07/18 14:16 Ascorbic Acid (Vitamin C) 500 mg PO DAILY [facility] Stop: 03/08/18 08:59 Last Admin: 01/07/18 08:51 Dose: 500 mg Atorvastatin Calcium (Lipitor) 40 mg PO DAILY [facility] PRN Reason: Protocol Stop: 03/08/18 08:59 Last Admin: 01/07/18 08:51 Dose: 40 mg Bisacodyl (Dulcolax 10 Mg Supp) 10 mg RC DAILY PRN PRN Reason: Constipation Stop: 03/07/18 14:16 Enalapril Maleate (Vasotec) 2.5 mg PO Q6HR PRN PRN Reason: FOR SPB ABOVE 160 Stop: 03/07/18 00:00 Glucagon (Glucagen) 1 mg IM UD PRN PRN Reason: High Sugar Levels Stop: 03/07/18 15:47 Levofloxacin (Levaquin Pb) 250 mg in 50 mls @ 50 mls/hr IV Q24HR [facility] Stop: 03/07/18 14:59 Last Infusion: 01/06/18 21:09 Dose: Infused Insulin Aspart (Novolog Insulin Sliding Scale) 0 units SUBQ ACHS [facility] PRN Reason: Protocol Stop: 03/07/18 07:29 Last Admin: 01/07/18 06:59 Dose: Not Given Ipratropium [place] (Atrovent Neb 0.5mg/2.5ml) 0.5 mg HHN Q4HRT [facility] Stop: 03/06/18 22:59 Last Admin: 01/07/18 10:51 Dose: 0.5 mg Ipratropium [place] (Atrovent Neb 0.5mg/2.5ml) 0.5 mg HHN Q8H PRN PRN Reason: COPD Stop: 03/07/18 14:16 Magnesium Hydroxide (Milk Of Magnesia) 30 ml PO DAILY PRN PRN Reason: Constipation Stop: 03/07/18 14:16 Megestrol Acetate (Megace) 400 mg PO BID [facility] Stop: 03/07/18 16:59 Last Admin: 01/07/18 08:51 Dose: 400 mg Multivitamins/Vitamin C (Theragran) 1 tab PO DAILY [facility] Stop: 03/08/18 08:59 Last Admin: 01/07/18 08:51 Dose: 1 tab Nystatin (Nystop) 100,000 units TP QSHIFT [facility] Stop: 03/07/18 19:59 Last Admin: 01/07/18 08:50 Dose: 100,000 units Ondansetron HCl (Zofran Odt) 4 mg PO Q6H PRN PRN Reason: NAUSEA Stop: 03/07/18 15:49 Pantoprazole Sodium (Protonix) 40 mg PO DAILY [facility] Stop: 03/08/18 08:59 Last Admin: 01/07/18 08:51 Dose: 40 mg Prednisone (Deltasone) 20 mg PO DAILY [facility] Stop: 03/08/18 08:59 Last Admin: 01/07/18 08:51 Dose: 20 mg Quetiapine Fumarate (Seroquel) 25 mg PO BID [facility] PRN Reason: Protocol Stop: 03/07/18 16:59 Last Admin: 01/07/18 08:51 Dose: 25 mg Sodium Phosphate (Fleet Enema) 135 ml RC DAILY PRN PRN Reason: Constipation Stop: 03/07/18 14:16 Zolpidem Tartrate (Ambien) 5 mg PO HS PRN PRN Reason: Insomnia Stop: 03/07/18 14:16 General: weak, alert HEENT: NC/AT, PERRLA Lungs: CTAB Cardiovascular: RRR, Normal S1, Normal S2 Abdomen: soft, non-tender, non-distended, positive bowel sound Neurological: alert Internal Medicine Assmt/Plan - Assessment Assessment: 1. Leukocytosis. 2. Pneumonia. 3. Dementia 4. severe hypokalemia - Plan Plan: replace k+ cbc/bmp in am dc planning in am continue current orders
[2018-01-07] MEDS: Levofloxacin 250mg/50mL 250 MG/50 ML BAG IV SCH (15:23)
--- NOTE | 2018-01-07 15:30 | Cardiology ---
01/06/[address] Casanova. PROCEDURE: Echocardiogram. M-MODE ECHOCARDIOGRAM: Mitral valve, anterior leaflet of mitral valve shows normal excursion, EF velocity. Posterior leaflet of the mitral valve shows normal excursion. Left ventricular posterior wall shows increased thickness, normal excursion. Interventricular septum shows increased thickness, normal excursion, hypertrophy of the left ventricle, ejection fraction 74%. Left atrium normal. Aortic root shows normal dimension, normal excursion of aortic leaflets. CONCLUSION: Hypertrophy of the left ventricle, ejection fraction 74%. 2D ECHO: Long axis view showed normal sized left ventricle with hypertrophy of the left ventricle. Left atrium normal. Aortic root shows normal dimension, normal excursion of aortic leaflets. Short axis view of mitral valve normal. Short axis view of aortic valve normal. Apical four chamber view showed normal sized left ventricle with hypertrophy of the left ventricle. Left atrium normal. Right ventricular cavity, right atrium normal. No pericardial effusion. CONCLUSION: Hypertrophy of the left ventricle, ejection fraction 74%. Doppler study shows mild mitral regurgitation, mild aortic regurgitation. Pressure half time of 482 milliseconds. Moderate tricuspid regurgitation, right ventricular systolic pressure 56 mmHg with moderate pulmonary hypertension. JOB# [id number]
[2018-01-07] MEDS: Diltiazem 30 mg Tab PO SCH (18:30)
[2018-01-08] MEDS: Diltiazem 30 mg Tab PO SCH ×4 (01:10→17:24)
[2018-01-08] MEDS: Ipratropium Neb 0.5 mg/2.5 mL UD HHN SCH ×6 (02:50→23:02)
[2018-01-08 06:01] LABS: HEMOGLOBIN 9.5 gm/dL (12-16)
[2018-01-08 06:05] LABS: HEMATOCRIT 28.1 % (41.0-60); MEAN CELL VOLUME 87.6 fl (81-100); MEAN CORPUSCULAR HEMOGLOBIN 29.5 pg (27.0-31.0); MEAN CORPUSCULAR HGB CONC 33.7 pg (28.0-36.0); MEAN PLATELET VOLUME 7.4 fl; PLATELET COUNT 390 Th/cmm (150-400); RED CELL DISTRIBUTION WIDTH 15.8 % (11.5-20.0)
[2018-01-08 06:16] LABS: MANUAL DIFF REQUIRED? YES
[2018-01-08 06:27] LABS: ANION GAP 6.8 (7.0-16.0); BUN - UREA NITROGEN 32 mg/dL (7-25); CALCIUM SERUM 8.2 mg/dL (8.6-10.3); CARBON DIOXIDE 25.4 mEq/L (21.0-31.0); CHLORIDE 109 mEq/L (98-107); GLUCOSE 119 mg/dL (70-105); POTASSIUM SERUM 4.2 mEq/L (3.5-5.1); SODIUM SERUM 137 mEq/L (136-145)
[2018-01-08 07:09] LABS: EOSINOPHIL 1 % (0-5); HYPOCHROMIA 1+; LYMPHOCYTE 11 % (20-50); MONOCYTE 3 % (2-10); NEUTROPHILS 85 % (40-80); PLATELET ESTIMATE ADEQUATE (NORMAL); TOTAL CELLS COUNTED 100
[2018-01-08] MEDS: INSULIN ASPART SLIDING SCALE 100 UNITS/ML UNIT SUBQ SCH ×4 (08:07→21:42)
[2018-01-08] MEDS: Pantoprazole 40 mg EC Tab PO SCH (09:14)
[2018-01-08] MEDS: NYSTATIN 100000 UNITS/GM POWD TP SCH ×2 (09:14→22:50)
[2018-01-08] MEDS: Multivitamin Tab PO SCH (09:14)
--- NOTE | 2018-01-08 10:08 | Infectious Disease Prog Note ---
Infectious Disease Subjective - Review of Systems Service Date: 01/08/18 Infectious Disease Objective - Results Result Diagrams: 01/08/18 05:52 01/08/18 05:52 Recent Labs: Laboratory Last Values WBC 14.0 Th/cmm (4.8-10.8) H 01/08/18 05:52 RBC 3.20 Mil/cmm (3.80-5.20) L 01/08/18 05:52 Hgb 9.5 gm/dL (12-16) L 01/08/18 05:52 Hct 28.1 % (41.0-60) L D 01/08/18 05:52 MCV 87.6 fl (81-100) 01/08/18 05:52 MCH 29.5 pg (27.0-31.0) 01/08/18 05:52 MCHC Differential 33.7 pg (28.0-36.0) 01/08/18 05:52 RDW 15.8 % (11.5-20.0) 01/08/18 05:52 Plt Count 390 Th/cmm (150-400) 01/08/18 05:52 MPV 7.4 fl 01/08/18 05:52 Band Neutrophils % 3 % (0-10) 01/06/18 06:26 Neutrophils (Manual) 85 % (40-80) H 01/08/18 05:52 Lymphocytes 11 % (20-50) L 01/08/18 05:52 Monocytes 3 % (2-10) 01/08/18 05:52 Eosinophils 1 % (0-5) 01/08/18 05:52 Basophils 0 % (0-3) 01/05/18 15:14 Hypochromia 1+ 01/08/18 05:52 Platelet Estimate ADEQUATE (NORMAL) 01/08/18 05:52 Platelet Morphology NORMAL (NORMAL) 01/05/18 15:14 RBC Morph Micro Appear NORMAL (NORMAL) 01/05/18 15:14 Sodium 137 mEq/L (136-145) 01/08/18 05:52 Potassium 4.2 mEq/L (3.5-5.1) 01/08/18 05:52 Chloride 109 mEq/L (98-107) H 01/08/18 05:52 Carbon Dioxide 25.4 mEq/L (21.0-31.0) 01/08/18 05:52 Anion Gap 6.8 (7.0-16.0) L 01/08/18 05:52 BUN 32 mg/dL (7-25) H 01/08/18 05:52 Creatinine 1.0 mg/dL (0.6-1.2) 01/08/18 05:52 Est GFR ( Amer) TNP 01/08/18 05:52 Est GFR (Non-Af Amer) TNP 01/08/18 05:52 BUN/Creatinine Ratio 32.0 01/08/18 05:52 Glucose 119 mg/dL (70-105) H 01/08/18 05:52 POC Glucose 108 MG/DL (70 - 105) H 01/08/18 06:58 Whole Bld Lactic Acid 1.41 mmol/L (0.60-1.99) 01/05/18 15:14 Calcium 8.2 mg/dL (8.6-10.3) L 01/08/18 05:52 Magnesium 2.2 mg/dL (1.9-2.7) 01/07/18 05:42 Total Bilirubin 0.9 mg/dL (0.3-1.0) 01/06/18 06:26 AST 13 U/L (13-39) 01/06/18 06:26 ALT 13 U/L (7-52) 01/06/18 06:26 Alkaline Phosphatase 62 U/L (34-104) 01/06/18 06:26 Troponin I 0.04 ng/mL (0.01-0.05) 01/05/18 15:14 B-Natriuretic Peptide 47.4 pg/mL (5.0-100.0) 01/05/18 15:14 Total Protein 6.5 gm/dL (6.0-8.3) 01/06/18 06:26 Albumin 3.3 gm/dL (3.7-5.3) L 01/06/18 06:26 Globulin 3.2 gm/dL 01/06/18 06:26 Albumin/Globulin Ratio 1.0 (1.0-1.8) 01/06/18 06:26 Triglycerides 94 mg/dL (<150) 01/06/18 06:26 Cholesterol 263 mg/dL (<200) H 01/06/18 06:26 LDL Cholesterol Direct 230 mg/dL (75-193) H 01/06/18 06:26 HDL Cholesterol 51 mg/dL (23-92) 01/06/18 06:26 Free T4 1.40 ng/dL (0.82-1.77) 01/05/18 15:14 TSH 0.23 uIU/ml (0.34-5.60) L 01/07/18 05:42 Urine Source MIDSTREAM 01/05/18 14:30 Urine Color YELLOW 01/05/18 14:30 Urine Clarity CLEAR (CLEAR) 01/05/18 14:30 Urine pH 6.5 (4.6 - 8.0) 01/05/18 14:30 Ur Specific [place] 1.020 (1.005-1.030) 01/05/18 14:30 Urine Protein NEGATIVE mg/dL (NEGATIVE) 01/05/18 14:30 Urine Glucose (UA) NEGATIVE mg/dL (NEGATIVE) 01/05/18 14:30 Urine Ketones NEGATIVE mg/dL (NEGATIVE) 01/05/18 14:30 Urine Blood SMALL (NEGATIVE) H 01/05/18 14:30 Urine Nitrate NEGATIVE (NEGATIVE) 01/05/18 14:30 Urine Bilirubin NEGATIVE (NEGATIVE) 01/05/18 14:30 Urine Urobilinogen 0.2 E.U./dL (0.2 - 1.0) 01/05/18 14:30 Ur Leukocyte Esterase NEGATIVE (NEGATIVE) 01/05/18 14:30 Urine RBC 5-10 /hpf (0-5) H 01/05/18 14:30 Urine WBC NONE SEEN /hpf (0-5) 01/05/18 14:30 Ur Epithelial Cells NONE SEEN /lpf (FEW) 01/05/18 14:30 Urine Bacteria NONE SEEN /hpf (NONE SEEN) 01/05/18 14:30 Random Vancomycin 12.2 ug/mL (5.0-40.0) 01/06/18 20:58 - Physical Exam Vitals and I&O: Vital Signs Temp 98.2 F 01/08/18 04:00 Pulse 57 01/08/18 09:14 Resp 18 01/08/18 07:04 BP 102/53 01/08/18 09:14 Pulse Ox 96 01/08/18 07:04 Intake & Output 01/07/18 01/08/18 01/08/18 18:59 06:59 18:59 Intake Total 650 Balance 650 Weight (lbs) 32.386 kg Intake: Oral 650 Other: # Voids 3 # Bowel Movements 1 Stool Characteristics Soft Soft Brown Active Medications: Current Medications Acetaminophen (Tylenol) 325 mg PO Q4H PRN PRN Reason: MILD PAIN/TEMP ABOVE 101 Stop: 03/06/18 21:50 Al Hydrox/Mg Hydrox/Simethicone (Maalox) 30 ml PO Q6HR PRN PRN Reason: Indigestion Stop: 03/07/18 14:16 Ascorbic Acid (Vitamin C) 500 mg PO DAILY [facility] Stop: 03/08/18 08:59 Last Admin: 01/08/18 09:14 Dose: 500 mg Atorvastatin Calcium (Lipitor) 40 mg PO DAILY [facility] PRN Reason: Protocol Stop: 03/08/18 08:59 Last Admin: 01/08/18 09:14 Dose: 40 mg Bisacodyl (Dulcolax 10 Mg Supp) 10 mg RC DAILY PRN PRN Reason: Constipation Stop: 03/07/18 14:16 Carvedilol (Coreg) 25 mg PO BID [facility] Stop: 03/08/18 16:59 Last Admin: 01/08/18 09:14 Dose: 25 mg Diltiazem HCl (Cardizem) 60 mg PO Q6HR [facility] Stop: 03/08/18 17:59 Last Admin: 01/08/18 06:54 Dose: 60 mg Enalapril Maleate (Vasotec) 2.5 mg PO Q6HR PRN PRN Reason: FOR SPB ABOVE 160 Stop: 03/07/18 00:00 Glucagon (Glucagen) 1 mg IM UD PRN PRN Reason: High Sugar Levels Stop: 03/07/18 15:47 Levofloxacin (Levaquin Pb) 250 mg in 50 mls @ 50 mls/hr IV Q24HR [facility] Stop: 03/07/18 14:59 Last Admin: 01/07/18 15:23 Dose: 50 mls/hr Insulin Aspart (Novolog Insulin Sliding Scale) 0 units SUBQ ACHS [facility] PRN Reason: Protocol Stop: 03/07/18 07:29 Last Admin: 01/08/18 08:07 Dose: Not Given Ipratropium [place] (Atrovent Neb 0.5mg/2.5ml) 0.5 mg HHN Q4HRT [facility] Stop: 03/06/18 22:59 Last Admin: 01/08/18 07:04 Dose: 0.5 mg Ipratropium [place] (Atrovent Neb 0.5mg/2.5ml) 0.5 mg HHN Q8H PRN PRN Reason: COPD Stop: 03/07/18 14:16 Magnesium Hydroxide (Milk Of Magnesia) 30 ml PO DAILY PRN PRN Reason: Constipation Stop: 03/07/18 14:16 Megestrol Acetate (Megace) 400 mg PO BID [facility] Stop: 03/07/18 16:59 Last Admin: 01/08/18 09:14 Dose: 400 mg Multivitamins/Vitamin C (Theragran) 1 tab PO DAILY [facility] Stop: 03/08/18 08:59 Last Admin: 01/08/18 09:14 Dose: 1 tab Nystatin (Nystop) 100,000 units TP QSHIFT [facility] Stop: 03/07/18 19:59 Last Admin: 01/08/18 09:14 Dose: 100,000 units Ondansetron HCl (Zofran Odt) 4 mg PO Q6H PRN PRN Reason: NAUSEA Stop: 03/07/18 15:49 Pantoprazole Sodium (Protonix) 40 mg PO DAILY [facility] Stop: 03/08/18 08:59 Last Admin: 01/08/18 09:14 Dose: 40 mg Prednisone (Deltasone) 20 mg PO DAILY [facility] Stop: 03/08/18 08:59 Last Admin: 01/08/18 09:16 Dose: 20 mg Quetiapine Fumarate (Seroquel) 25 mg PO BID [facility] PRN Reason: Protocol Stop: 03/07/18 16:59 Last Admin: 01/08/18 09:14 Dose: 25 mg Sodium Phosphate (Fleet Enema) 135 ml RC DAILY PRN PRN Reason: Constipation Stop: 03/07/18 14:16 Zolpidem Tartrate (Ambien) 5 mg PO HS PRN PRN Reason: Insomnia Stop: 03/07/18 14:16 General: no acute distress, well developed, well nourished HEENT: atraumatic, normocephalic, PERRLA Neck: supple, no thyromegaly Cardiovascular: S1S2, regular Lungs: clear to auscultation bilaterally, clear to percussion Abdomen: soft, no tender, no distended Extremities: no cyanosis, no clubbing, no edema Neurological: awake, alert, oriented Skin: intact Infectious Disease Assmt/Plan - Assessment Assessment: 1. Leukocytosis. 2. Pneumonia. 3. Dementia - Plan Plan: Continue Levaquin. PT and swallow eval.
--- NOTE | 2018-01-08 14:43 | Internal Medicine Prog Note ---
Internal Medicine Subjective - Subjective Service Date: 01/08/18 Patient seen and examined:: with staff Patient is:: awake Per staff patient has:: tolerating meds Internal Medicine Objective - Results Result Diagrams: 01/08/18 05:52 01/08/18 05:52 Recent Labs: Laboratory Last Values WBC 14.0 Th/cmm (4.8-10.8) H 01/08/18 05:52 RBC 3.20 Mil/cmm (3.80-5.20) L 01/08/18 05:52 Hgb 9.5 gm/dL (12-16) L 01/08/18 05:52 Hct 28.1 % (41.0-60) L D 01/08/18 05:52 MCV 87.6 fl (81-100) 01/08/18 05:52 MCH 29.5 pg (27.0-31.0) 01/08/18 05:52 MCHC Differential 33.7 pg (28.0-36.0) 01/08/18 05:52 RDW 15.8 % (11.5-20.0) 01/08/18 05:52 Plt Count 390 Th/cmm (150-400) 01/08/18 05:52 MPV 7.4 fl 01/08/18 05:52 Band Neutrophils % 3 % (0-10) 01/06/18 06:26 Neutrophils (Manual) 85 % (40-80) H 01/08/18 05:52 Lymphocytes 11 % (20-50) L 01/08/18 05:52 Monocytes 3 % (2-10) 01/08/18 05:52 Eosinophils 1 % (0-5) 01/08/18 05:52 Basophils 0 % (0-3) 01/05/18 15:14 Hypochromia 1+ 01/08/18 05:52 Platelet Estimate ADEQUATE (NORMAL) 01/08/18 05:52 Platelet Morphology NORMAL (NORMAL) 01/05/18 15:14 RBC Morph Micro Appear NORMAL (NORMAL) 01/05/18 15:14 Sodium 137 mEq/L (136-145) 01/08/18 05:52 Potassium 4.2 mEq/L (3.5-5.1) 01/08/18 05:52 Chloride 109 mEq/L (98-107) H 01/08/18 05:52 Carbon Dioxide 25.4 mEq/L (21.0-31.0) 01/08/18 05:52 Anion Gap 6.8 (7.0-16.0) L 01/08/18 05:52 BUN 32 mg/dL (7-25) H 01/08/18 05:52 Creatinine 1.0 mg/dL (0.6-1.2) 01/08/18 05:52 Est GFR ( Amer) TNP 01/08/18 05:52 Est GFR (Non-Af Amer) TNP 01/08/18 05:52 BUN/Creatinine Ratio 32.0 01/08/18 05:52 Glucose 119 mg/dL (70-105) H 01/08/18 05:52 POC Glucose 114 MG/DL (70 - 105) H 01/08/18 11:58 Whole Bld Lactic Acid 1.41 mmol/L (0.60-1.99) 01/05/18 15:14 Calcium 8.2 mg/dL (8.6-10.3) L 01/08/18 05:52 Magnesium 2.2 mg/dL (1.9-2.7) 01/07/18 05:42 Total Bilirubin 0.9 mg/dL (0.3-1.0) 01/06/18 06:26 AST 13 U/L (13-39) 01/06/18 06:26 ALT 13 U/L (7-52) 01/06/18 06:26 Alkaline Phosphatase 62 U/L (34-104) 01/06/18 06:26 Troponin I 0.04 ng/mL (0.01-0.05) 01/05/18 15:14 B-Natriuretic Peptide 47.4 pg/mL (5.0-100.0) 01/05/18 15:14 Total Protein 6.5 gm/dL (6.0-8.3) 01/06/18 06:26 Albumin 3.3 gm/dL (3.7-5.3) L 01/06/18 06:26 Globulin 3.2 gm/dL 01/06/18 06:26 Albumin/Globulin Ratio 1.0 (1.0-1.8) 01/06/18 06:26 Triglycerides 94 mg/dL (<150) 01/06/18 06:26 Cholesterol 263 mg/dL (<200) H 01/06/18 06:26 LDL Cholesterol Direct 230 mg/dL (75-193) H 01/06/18 06:26 HDL Cholesterol 51 mg/dL (23-92) 01/06/18 06:26 Free T4 1.40 ng/dL (0.82-1.77) 01/05/18 15:14 TSH 0.23 uIU/ml (0.34-5.60) L 01/07/18 05:42 Urine Source MIDSTREAM 01/05/18 14:30 Urine Color YELLOW 01/05/18 14:30 Urine Clarity CLEAR (CLEAR) 01/05/18 14:30 Urine pH 6.5 (4.6 - 8.0) 01/05/18 14:30 Ur Specific [place] 1.020 (1.005-1.030) 01/05/18 14:30 Urine Protein NEGATIVE mg/dL (NEGATIVE) 01/05/18 14:30 Urine Glucose (UA) NEGATIVE mg/dL (NEGATIVE) 01/05/18 14:30 Urine Ketones NEGATIVE mg/dL (NEGATIVE) 01/05/18 14:30 Urine Blood SMALL (NEGATIVE) H 01/05/18 14:30 Urine Nitrate NEGATIVE (NEGATIVE) 01/05/18 14:30 Urine Bilirubin NEGATIVE (NEGATIVE) 01/05/18 14:30 Urine Urobilinogen 0.2 E.U./dL (0.2 - 1.0) 01/05/18 14:30 Ur Leukocyte Esterase NEGATIVE (NEGATIVE) 01/05/18 14:30 Urine RBC 5-10 /hpf (0-5) H 01/05/18 14:30 Urine WBC NONE SEEN /hpf (0-5) 01/05/18 14:30 Ur Epithelial Cells NONE SEEN /lpf (FEW) 01/05/18 14:30 Urine Bacteria NONE SEEN /hpf (NONE SEEN) 01/05/18 14:30 Random Vancomycin 12.2 ug/mL (5.0-40.0) 01/06/18 20:58 - Physical Exam Vitals and I&O: Vital Signs Temp 98.2 F 01/08/18 08:00 Pulse 58 01/08/18 12:27 Resp 18 01/08/18 11:31 BP 102/53 01/08/18 09:14 Pulse Ox 95 01/08/18 11:31 Intake & Output 01/07/18 01/08/18 01/08/18 18:59 06:59 18:59 Intake Total 650 Balance 650 Weight (lbs) 71 lb 6.4 oz Intake: Oral 650 Other: # Voids 3 # Bowel Movements 1 Stool Characteristics Soft Soft Soft Brown Brown Active Medications: Current Medications Acetaminophen (Tylenol) 325 mg PO Q4H PRN PRN Reason: MILD PAIN/TEMP ABOVE 101 Stop: 03/06/18 21:50 Al Hydrox/Mg Hydrox/Simethicone (Maalox) 30 ml PO Q6HR PRN PRN Reason: Indigestion Stop: 03/07/18 14:16 Ascorbic Acid (Vitamin C) 500 mg PO DAILY [facility] Stop: 03/08/18 08:59 Last Admin: 01/08/18 09:14 Dose: 500 mg Atorvastatin Calcium (Lipitor) 40 mg PO DAILY [facility] PRN Reason: Protocol Stop: 03/08/18 08:59 Last Admin: 01/08/18 09:14 Dose: 40 mg Bisacodyl (Dulcolax 10 Mg Supp) 10 mg RC DAILY PRN PRN Reason: Constipation Stop: 03/07/18 14:16 Carvedilol (Coreg) 25 mg PO BID [facility] Stop: 03/08/18 16:59 Last Admin: 01/08/18 09:14 Dose: 25 mg Diltiazem HCl (Cardizem) 60 mg PO Q6HR [facility] Stop: 03/08/18 17:59 Last Admin: 01/08/18 12:27 Dose: Not Given Enalapril Maleate (Vasotec) 2.5 mg PO Q6HR PRN PRN Reason: FOR SPB ABOVE 160 Stop: 03/07/18 00:00 Glucagon (Glucagen) 1 mg IM UD PRN PRN Reason: High Sugar Levels Stop: 03/07/18 15:47 Levofloxacin (Levaquin Pb) 250 mg in 50 mls @ 50 mls/hr IV Q24HR [facility] Stop: 03/07/18 14:59 Last Admin: 01/07/18 15:23 Dose: 50 mls/hr Insulin Aspart (Novolog Insulin Sliding Scale) 0 units SUBQ ACHS [facility] PRN Reason: Protocol Stop: 03/07/18 07:29 Last Admin: 01/08/18 12:09 Dose: Not Given Ipratropium [place] (Atrovent Neb 0.5mg/2.5ml) 0.5 mg HHN Q4HRT [facility] Stop: 03/06/18 22:59 Last Admin: 01/08/18 11:30 Dose: 0.5 mg Ipratropium [place] (Atrovent Neb 0.5mg/2.5ml) 0.5 mg HHN Q8H PRN PRN Reason: COPD Stop: 03/07/18 14:16 Magnesium Hydroxide (Milk Of Magnesia) 30 ml PO DAILY PRN PRN Reason: Constipation Stop: 03/07/18 14:16 Megestrol Acetate (Megace) 400 mg PO BID [facility] Stop: 03/07/18 16:59 Last Admin: 01/08/18 09:14 Dose: 400 mg Multivitamins/Vitamin C (Theragran) 1 tab PO DAILY [facility] Stop: 03/08/18 08:59 Last Admin: 01/08/18 09:14 Dose: 1 tab Nystatin (Nystop) 100,000 units TP QSHIFT [facility] Stop: 03/07/18 19:59 Last Admin: 01/08/18 09:14 Dose: 100,000 units Ondansetron HCl (Zofran Odt) 4 mg PO Q6H PRN PRN Reason: NAUSEA Stop: 03/07/18 15:49 Pantoprazole Sodium (Protonix) 40 mg PO DAILY [facility] Stop: 03/08/18 08:59 Last Admin: 01/08/18 09:14 Dose: 40 mg Prednisone (Deltasone) 10 mg PO DAILY [facility] Stop: 03/10/18 08:59 Quetiapine Fumarate (Seroquel) 25 mg PO BID [facility] PRN Reason: Protocol Stop: 03/07/18 16:59 Last Admin: 01/08/18 09:14 Dose: 25 mg Sodium Phosphate (Fleet Enema) 135 ml RC DAILY PRN PRN Reason: Constipation Stop: 03/07/18 14:16 Zolpidem Tartrate (Ambien) 5 mg PO HS PRN PRN Reason: Insomnia Stop: 03/07/18 14:16 General: weak, alert HEENT: NC/AT, PERRLA Lungs: CTAB Cardiovascular: RRR, Normal S1, Normal S2 Abdomen: soft, non-tender, non-distended, positive bowel sound Neurological: alert Internal Medicine Assmt/Plan - Assessment Assessment: 1. Leukocytosis. 2. Pneumonia. 3. Dementia 4. severe hypokalemia - Plan Plan: cbc/bmp in am continue current orders
[2018-01-08] MEDS: Levofloxacin 250mg/50mL 250 MG/50 ML BAG IV SCH (14:53)
[2018-01-09] MEDS: Diltiazem 30 mg Tab PO SCH ×3 (00:26→11:49)
[2018-01-09] MEDS: Ipratropium Neb 0.5 mg/2.5 mL UD HHN SCH ×3 (02:05→10:36)
[2018-01-09 05:16] LABS: HEMATOCRIT 29.5 % (41.0-60); HEMOGLOBIN 9.7 gm/dL (12-16); MEAN CELL VOLUME 88.1 fl (81-100); MEAN CORPUSCULAR HEMOGLOBIN 29.1 pg (27.0-31.0); MEAN PLATELET VOLUME 7.6 fl; PLATELET COUNT 390 Th/cmm (150-400); RED BLOOD COUNT 3.35 Mil/cmm (3.80-5.20)
[2018-01-09 05:21] LABS: MANUAL DIFF REQUIRED? YES; WHITE BLOOD COUNT 13.7 Th/cmm (4.8-10.8)
[2018-01-09 05:49] LABS: ANION GAP 9.9 (7.0-16.0); BUN - UREA NITROGEN 30 mg/dL (7-25); CALCIUM SERUM 8.4 mg/dL (8.6-10.3); CARBON DIOXIDE 24.1 mEq/L (21.0-31.0); CHLORIDE 109 mEq/L (98-107); CREATININE - SERUM 0.9 mg/dL (0.6-1.2); GLUCOSE 115 mg/dL (70-105); SODIUM SERUM 139 mEq/L (136-145)
[2018-01-09 05:51] LABS: BAND NEUTROPHILE 8 % (0-10); LYMPHOCYTE 14 % (20-50); MONOCYTE 6 % (2-10); NEUTROPHILS 72 % (40-80); TOTAL CELLS COUNTED 100
[2018-01-09] MEDS: INSULIN ASPART SLIDING SCALE 100 UNITS/ML UNIT SUBQ SCH ×2 (06:45→11:48)
[2018-01-09] MEDS: Multivitamin Tab PO SCH (09:00)
[2018-01-09] MEDS: Pantoprazole 40 mg EC Tab PO SCH (09:01)
[2018-01-09] MEDS: NYSTATIN 100000 UNITS/GM POWD TP SCH (09:01)
--- NOTE | 2018-01-09 12:54 | Infectious Disease Prog Note ---
Infectious Disease Subjective - Review of Systems Service Date: 01/09/18 Subjective: There is no new change, no fever. Infectious Disease Objective - Results Result Diagrams: 01/09/18 05:05 01/09/18 05:05 Recent Labs: Laboratory Last Values WBC 13.7 Th/cmm (4.8-10.8) H 01/09/18 05:05 RBC 3.35 Mil/cmm (3.80-5.20) L 01/09/18 05:05 Hgb 9.7 gm/dL (12-16) L 01/09/18 05:05 Hct 29.5 % (41.0-60) L 01/09/18 05:05 MCV 88.1 fl (81-100) 01/09/18 05:05 MCH 29.1 pg (27.0-31.0) 01/09/18 05:05 MCHC Differential 33.0 pg (28.0-36.0) 01/09/18 05:05 RDW 16.0 % (11.5-20.0) 01/09/18 05:05 Plt Count 390 Th/cmm (150-400) 01/09/18 05:05 MPV 7.6 fl 01/09/18 05:05 Band Neutrophils % 8 % (0-10) 01/09/18 05:05 Neutrophils (Manual) 72 % (40-80) 01/09/18 05:05 Lymphocytes 14 % (20-50) L 01/09/18 05:05 Monocytes 6 % (2-10) 01/09/18 05:05 Eosinophils 1 % (0-5) 01/08/18 05:52 Basophils 0 % (0-3) 01/05/18 15:14 Hypochromia 1+ 01/08/18 05:52 Platelet Estimate ADEQUATE (NORMAL) 01/08/18 05:52 Platelet Morphology NORMAL (NORMAL) 01/05/18 15:14 RBC Morph Micro Appear NORMAL (NORMAL) 01/05/18 15:14 Sodium 139 mEq/L (136-145) 01/09/18 05:05 Potassium 4.0 mEq/L (3.5-5.1) 01/09/18 05:05 Chloride 109 mEq/L (98-107) H 01/09/18 05:05 Carbon Dioxide 24.1 mEq/L (21.0-31.0) 01/09/18 05:05 Anion Gap 9.9 (7.0-16.0) 01/09/18 05:05 BUN 30 mg/dL (7-25) H 01/09/18 05:05 Creatinine 0.9 mg/dL (0.6-1.2) 01/09/18 05:05 Est GFR ( Amer) TNP 01/09/18 05:05 Est GFR (Non-Af Amer) TNP 01/09/18 05:05 BUN/Creatinine Ratio 33.3 01/09/18 05:05 Glucose 115 mg/dL (70-105) H 01/09/18 05:05 POC Glucose 102 MG/DL (70 - 105) 01/09/18 11:47 Whole Bld Lactic Acid 1.41 mmol/L (0.60-1.99) 01/05/18 15:14 Calcium 8.4 mg/dL (8.6-10.3) L 01/09/18 05:05 Magnesium 2.2 mg/dL (1.9-2.7) 01/07/18 05:42 Total Bilirubin 0.9 mg/dL (0.3-1.0) 01/06/18 06:26 AST 13 U/L (13-39) 01/06/18 06:26 ALT 13 U/L (7-52) 01/06/18 06:26 Alkaline Phosphatase 62 U/L (34-104) 01/06/18 06:26 Troponin I 0.04 ng/mL (0.01-0.05) 01/05/18 15:14 B-Natriuretic Peptide 47.4 pg/mL (5.0-100.0) 01/05/18 15:14 Total Protein 6.5 gm/dL (6.0-8.3) 01/06/18 06:26 Albumin 3.3 gm/dL (3.7-5.3) L 01/06/18 06:26 Globulin 3.2 gm/dL 01/06/18 06:26 Albumin/Globulin Ratio 1.0 (1.0-1.8) 01/06/18 06:26 Triglycerides 94 mg/dL (<150) 01/06/18 06:26 Cholesterol 263 mg/dL (<200) H 01/06/18 06:26 LDL Cholesterol Direct 230 mg/dL (75-193) H 01/06/18 06:26 HDL Cholesterol 51 mg/dL (23-92) 01/06/18 06:26 Free T4 1.40 ng/dL (0.82-1.77) 01/05/18 15:14 TSH 0.23 uIU/ml (0.34-5.60) L 01/07/18 05:42 Urine Source MIDSTREAM 01/05/18 14:30 Urine Color YELLOW 01/05/18 14:30 Urine Clarity CLEAR (CLEAR) 01/05/18 14:30 Urine pH 6.5 (4.6 - 8.0) 01/05/18 14:30 Ur Specific [place] 1.020 (1.005-1.030) 01/05/18 14:30 Urine Protein NEGATIVE mg/dL (NEGATIVE) 01/05/18 14:30 Urine Glucose (UA) NEGATIVE mg/dL (NEGATIVE) 01/05/18 14:30 Urine Ketones NEGATIVE mg/dL (NEGATIVE) 01/05/18 14:30 Urine Blood SMALL (NEGATIVE) H 01/05/18 14:30 Urine Nitrate NEGATIVE (NEGATIVE) 01/05/18 14:30 Urine Bilirubin NEGATIVE (NEGATIVE) 01/05/18 14:30 Urine Urobilinogen 0.2 E.U./dL (0.2 - 1.0) 01/05/18 14:30 Ur Leukocyte Esterase NEGATIVE (NEGATIVE) 01/05/18 14:30 Urine RBC 5-10 /hpf (0-5) H 01/05/18 14:30 Urine WBC NONE SEEN /hpf (0-5) 01/05/18 14:30 Ur Epithelial Cells NONE SEEN /lpf (FEW) 01/05/18 14:30 Urine Bacteria NONE SEEN /hpf (NONE SEEN) 01/05/18 14:30 Random Vancomycin 12.2 ug/mL (5.0-40.0) 01/06/18 20:58 - Physical Exam Vitals and I&O: Vital Signs Temp 96.8 F 01/09/18 12:24 Pulse 65 01/09/18 12:24 Resp 16 01/09/18 12:24 BP 136/58 01/09/18 12:24 Pulse Ox 98 01/09/18 12:24 Intake & Output 01/08/18 01/09/1818 18:59 06:59 18:59 Intake Total 300 Balance 300 Weight (lbs) 32.205 kg Intake: Oral 300 Other: # Voids 2 # Bowel Movements 0 Stool Characteristics Soft Brown Active Medications: Current Medications Acetaminophen (Tylenol) 325 mg PO Q4H PRN PRN Reason: MILD PAIN/TEMP ABOVE 101 Stop: 03/06/18 21:50 Al Hydrox/Mg Hydrox/Simethicone (Maalox) 30 ml PO Q6HR PRN PRN Reason: Indigestion Stop: 03/07/18 14:16 Ascorbic Acid (Vitamin C) 500 mg PO DAILY [facility] Stop: 03/08/18 08:59 Last Admin: 01/09/18 09:00 Dose: 500 mg Atorvastatin Calcium (Lipitor) 40 mg PO DAILY [facility] PRN Reason: Protocol Stop: 03/08/18 08:59 Last Admin: 01/09/18 09:01 Dose: 40 mg Bisacodyl (Dulcolax 10 Mg Supp) 10 mg RC DAILY PRN PRN Reason: Constipation Stop: 03/07/18 14:16 Carvedilol (Coreg) 25 mg PO BID [facility] Stop: 03/08/18 16:59 Last Admin: 01/09/18 09:13 Dose: 25 mg Diltiazem HCl (Cardizem) 60 mg PO Q6HR [facility] Stop: 03/08/18 17:59 Last Admin: 01/09/18 11:49 Dose: 60 mg Enalapril Maleate (Vasotec) 2.5 mg PO Q6HR PRN PRN Reason: FOR SPB ABOVE 160 Stop: 03/07/18 00:00 Glucagon (Glucagen) 1 mg IM UD PRN PRN Reason: High Sugar Levels Stop: 03/07/18 15:47 Levofloxacin (Levaquin Pb) 250 mg in 50 mls @ 50 mls/hr IV Q24HR [facility] Stop: 03/07/18 14:59 Last Admin: 01/08/18 14:53 Dose: 50 mls/hr Insulin Aspart (Novolog Insulin Sliding Scale) 0 units SUBQ ACHS [facility] PRN Reason: Protocol Stop: 03/07/18 07:29 Last Admin: 01/09/18 11:48 Dose: Not Given Ipratropium [place] (Atrovent Neb 0.5mg/2.5ml) 0.5 mg HHN Q4HRT [facility] Stop: 03/06/18 22:59 Last Admin: 01/09/18 10:36 Dose: 0.5 mg Ipratropium [place] (Atrovent Neb 0.5mg/2.5ml) 0.5 mg HHN Q8H PRN PRN Reason: COPD Stop: 03/07/18 14:16 Magnesium Hydroxide (Milk Of Magnesia) 30 ml PO DAILY PRN PRN Reason: Constipation Stop: 03/07/18 14:16 Megestrol Acetate (Megace) 400 mg PO BID [facility] Stop: 03/07/18 16:59 Last Admin: 01/09/18 09:00 Dose: 400 mg Multivitamins/Vitamin C (Theragran) 1 tab PO DAILY [facility] Stop: 03/08/18 08:59 Last Admin: 01/09/18 09:00 Dose: 1 tab Nystatin (Nystop) 100,000 units TP QSHIFT [facility] Stop: 03/07/18 19:59 Last Admin: 01/09/18 09:01 Dose: 100,000 units Ondansetron HCl (Zofran Odt) 4 mg PO Q6H PRN PRN Reason: NAUSEA Stop: 03/07/18 15:49 Pantoprazole Sodium (Protonix) 40 mg PO DAILY [facility] Stop: 03/08/18 08:59 Last Admin: 01/09/18 09:01 Dose: 40 mg Prednisone (Deltasone) 10 mg PO DAILY [facility] Stop: 03/10/18 08:59 Last Admin: 01/09/18 09:00 Dose: 10 mg Quetiapine Fumarate (Seroquel) 25 mg PO BID [facility] PRN Reason: Protocol Stop: 03/07/18 16:59 Last Admin: 01/09/18 09:01 Dose: 25 mg Sodium Phosphate (Fleet Enema) 135 ml RC DAILY PRN PRN Reason: Constipation Stop: 03/07/18 14:16 Zolpidem Tartrate (Ambien) 5 mg PO HS PRN PRN Reason: Insomnia Stop: 03/07/18 14:16 General: no acute distress, well developed, well nourished HEENT: atraumatic, normocephalic, PERRLA Neck: supple, no thyromegaly Cardiovascular: S1S2, regular Lungs: clear to auscultation bilaterally, clear to percussion Abdomen: soft, no tender, no distended, no mass Extremities: no cyanosis, no clubbing, no edema Neurological: awake, alert, oriented Skin: intact Infectious Disease Assmt/Plan - Assessment Assessment: 1. Leukocytosis. 2. Pneumonia. 3. Dementia - Plan Plan: Continue Levaquin. DC plan.
--- NOTE | 2018-01-09 19:52 | Discharge Summary ---
DATE OF DISCHARGE: 01/09/2018 CHIEF COMPLAINT: Altered level of consciousness. HISTORY OF PRESENT ILLNESS AND HOSPITAL COURSE: The patient is an 82-year-old female with a past medical history of dementia, admitted to the hospital for altered mental status. The patient was afebrile and her WBC count is 14,000. The patient was started on antibiotic, suspected pneumonia. Her mentation improved, but chest x-ray showed chronic infiltrate. WBC count remained around 14,000. The patient had no fever during hospital course. The patient's mentation improved to normal. CONSULTATIONS CALLED: Cardiology consult and Infectious Disease consultation. DISCHARGE CONDITION: Stable. DISCHARGE DISPOSITION: SNF. DISCHARGE MEDICATIONS: As per medication reconciliation sheet referral. FOLLOWUP: Follow up with Dr. Casanova, her primary care physician. DISCHARGE DIAGNOSES: 1. Pneumonia. 2. Chronic lung disease. 3. Altered mental status. 4. Dementia. 5. Leukocytosis. JOB# [id number]
== END 2018-01-09 14:46 | disposition home or self-care (01) | DRG 871 ==
LOC: ER 13:28 → MSI 18:44 → TELE 01-07 04:30
PROVIDERS: ADMIT Internal Medicine; ATTEND Internal Medicine
DX: A41.9 Sepsis, unspecified organism (principal); J18.9 Pneumonia, unspecified organism; E41 Nutritional marasmus; I95.9 Hypotension, unspecified; I48.91 Unspecified atrial fibrillation; J44.0 Chronic obstructive pulmonary disease with (acute) lower respiratory infection; E11.9 Type 2 diabetes mellitus without complications; N39.0 Urinary tract infection, site not specified; Z68.1 Body mass index [BMI] 19.9 or less, adult; F03.90 Unspecified dementia, unspecified severity, without behavioral disturbance, psychotic disturbance, mood disturbance, and anxiety; I10 Essential (primary) hypertension; E87.6 Hypokalemia; Z79.4 Long term (current) use of insulin
CPT/HCPCS: 36415-UA; 71045-TC; 80048-TC; 80053-TC; 80061-TC; 80202-TC; 81001-TC; 82948-90; 83605; 83735-TC; 83880-TC; 84439-90; 84443-TC; 84484-TC; 85007-TC; 85025-TC; 85027-TC; 90779; 93005; 94640; 94760; 97530; J1815; J1940; J1956; J2543; J3370; J7030; X3401; Z7610

== ENCOUNTER 2018-01-20 11:53 | Inpatient (IN) | payer MEDICARE, MEDICAID ==
[2018-01-20] MEDS ORDERED: Meropenem 1 GM in Sodium Chloride 0.9% 100 ML IV ONE (12:17)
[2018-01-20] MEDS ORDERED: Piperacillin Sodium/Tazobact 3.375 gm Vial IV ONE ×2 (12:27→18:24)
[2018-01-20] MEDS ORDERED: Sodium Chloride 0.9% 1,000 ML IV ONE ×2 (12:28→14:08)
[2018-01-20] MEDS ORDERED: Codeine /Guaifenesin 200mg-20mg/10 mL UDC PO STA (12:30)
[2018-01-20 12:34] LABS: BASOPHILE ABSOLUTE 0.2 Th/cumm (0-0.2); HEMATOCRIT 33.1 % (41.0-60); HEMOGLOBIN 11.1 gm/dL (12-16); LYMPHOCYTE ABSOLUTE 1.1 Th/cmm (1.5-3.0); MANUAL DIFF REQUIRED? YES; MEAN CELL VOLUME 88.5 fl (81-100); MEAN CORPUSCULAR HEMOGLOBIN 29.8 pg (27.0-31.0); MEAN CORPUSCULAR HGB CONC 33.6 pg (28.0-36.0); MEAN PLATELET VOLUME 7.9 fl; NEUTROPHILE ABSOLUTE 20.7 Th/cmm (1.8-8.0); PLATELET COUNT 312 Th/cmm (150-400); RED BLOOD COUNT 3.74 Mil/cmm (3.80-5.20); RED CELL DISTRIBUTION WIDTH 16.2 % (11.5-20.0)
[2018-01-20] MEDS ORDERED: Multivitamin Tab PO ONE (12:39)
[2018-01-20] MEDS ORDERED: Albuterol/Ipratropium Neb 3 ML AERS HHN ONE ×2 (12:40→12:41)
[2018-01-20] MEDS ORDERED: Enoxaparin 30 mg/0.3 mL 0.3mL Syr SUBQ STA (12:41)
[2018-01-20 12:49] LABS: CHOLESTEROL 195 mg/dL (<200); HDL -HIGH DENSITY LIPOPROTEIN 40 mg/dL (23-92); TRIGLYCERIDES 97 mg/dL (<150)
[2018-01-20] MEDS ORDERED: Enoxaparin 30 mg/0.3 mL 0.3mL Syr SUBQ ONE (12:51)
[2018-01-20 13:00] LABS: BAND NEUTROPHILE 1 % (0-10); EOSINOPHIL 1 % (0-5); LYMPHOCYTE 6 % (20-50); MONOCYTE 6 % (2-10); NEUTROPHILS 86 % (40-80); PLATELET ESTIMATE ADEQUATE (NORMAL); TOTAL CELLS COUNTED 100
[2018-01-20 13:01] LABS: ALBUMIN 3.2 gm/dL (3.7-5.3); ALKALINE PHOSPHATASE 77 U/L (34-104); ANION GAP 10.5 (7.0-16.0); BILIRUBIN,TOTAL 0.3 mg/dL (0.3-1.0); BUN - UREA NITROGEN 36 mg/dL (7-25); CALCIUM SERUM 8.8 mg/dL (8.6-10.3); CHLORIDE 98 mEq/L (98-107); CREATININE - SERUM 0.8 mg/dL (0.6-1.2); GLUCOSE 196 mg/dL (70-105); POTASSIUM SERUM 4.5 mEq/L (3.5-5.1); SGOT 34 U/L (13-39); SGPT/ALT 26 U/L (7-52); SODIUM SERUM 137 mEq/L (136-145); TOTAL PROTEIN,SERUM 6.4 gm/dL (6.0-8.3)
[2018-01-20 13:03] LABS: ALB/GLOB RATIO 1.2 (1.0-1.8); BILIRUBIN,TOTAL 0.3 mg/dL (0.3-1.0)
[2018-01-20 13:04] LABS: BILIRUBIN,DIRECT 0.07 mg/dL (0.0-0.2)
[2018-01-20] MEDS ORDERED: methylPREDNISolone SS 40 mg Vial IVP SCH ×2 (14:00→14:15)
[2018-01-20] MEDS ORDERED: methylPREDNISolone SS 40 mg Vial ONE (14:09)
[2018-01-20] MEDS ORDERED: Albuterol Nebulizer 2.5mg/3mL HHN SCH (15:00)
--- NOTE | 2018-01-20 15:02 | ER Physician Documentation ---
DATE OF SERVICE: 01/20/2018 HISTORY OF PRESENT ILLNESS: The patient is an 82-year-old female patient came from the assisted, [place], sent by Dr. Casanova because the patient had bilateral pneumonitis, bilateral infiltrate, more on the left side and Dr. Casanova is the family doctor. White count is more than 20,000. The patient had the triage nurse seen the patient and abnormal x-ray was detected. The triage nurse found that the patient's temperature was 99.2, pulse was 120, respirations 22, blood pressure 171/57, oxygen saturation is 94%. LABORATORY DATA: White count done at the assisted on 01/19/2018 showed it was 20,000, hemoglobin 10.8, hematocrit 32.3, neutrophils was 90.7, clearly shift to the left. BUN is 34 and white count was high. Hemoglobin 10.__, hematocrit 32.3, which should be most likely the patient may be anemic because of dehydration and sepsis. Hemoglobin count is low. Potassium level is 5.8, sodium 140, chloride 101, CO2 33, BUN 34, creatinine 0.8, most likely acute tubular necrosis could be suspected. Prerenal azotemia and albumin level is 2.8. Chest x-ray was done just a few days ago at [facility], showing mild cardiomegaly, bronchitis, probably chronic bilateral lower lobe airspace infiltrates, more on the left side. Family physician, Dr. Casanova; contacting physician Dr. Casanova; dentist, [facility], [employer], Eulogio Orta. [facility], [facility]. [facility] is the patient's pharmacy. The patient came from [facility] to [facility] for admission and treatment. The patient is not giving any history and hence the history is difficult to obtain, but the ones that I mentioning all is true. HISTORY OF PRESENT ILLNESS: The patient has a history of dementia, history of hypertension, history of hyperlipidemia. Let me see if I can find the patient's medications, etc. that I can give it to you, but I do not think we have anything available here. She is allergic to PLASTIC TAPE. The current medication list is not available for me to dictate. It did not come from the assisted. Let me see if I can find somewhere else. The patient has hyperlipidemia, hypertension as I mentioned. PHYSICAL EXAMINATION: GENERAL: The patient was examined in bed 3, does not speak, Sudanese speaking, respiratory therapist came and talked to her, but she does not talk much. The patient appears to be pale, conjunctivae is showing pallor. She is getting oxygen. Heart rate is 103 beats per minute. Blood pressure is 177/57 beats per minute. Conjunctivae showing pallor and ENT appears to be normal. Neck veins are not distended. No evidence of gross congestive heart failure. No edema, no cyanosis, no petechia, no ecchymosis. CHEST: Revealed bilateral scattered rales heard in both lung grace, left more than the right with bilateral scattered few rhonchi is also audible. No definite bronchial breathing, maybe in the left lung base with some evidence of bronchial breathing audible. HEART: Reveals normal heart sounds, tachycardic heart sound, fourth heart sound is present. Third heart sound is absent. Second heart sound is physiologically split. ABDOMEN: Soft, benign and negative. Liver, spleen not enlarged. No free fluid in the abdominal cavity. CENTRAL NERVOUS SYSTEM: The patient has some dementia and she is bedridden at the present moment. Walking etc. was not checked at the present moment in view of her grave sickness. Central nervous system is within limits. Costovertebral angle is normal. We will get a urine culture also done since she is coming from a assisted, most likely will find some problems over there also. FINAL DIAGNOSES: Bilateral pneumonia, left more than the right; diabetes, hypertension, dehydration, prerenal azotemia, sepsis, septicemia and patient is dry, dehydrated and anemic, etc. His present, most likely serum iron, iron-binding capacity, ferritin etc. also would be low. The patient is adequately built, but poorly nourished and she has protein-calorie malnutrition present. Most likely will be admitted under Dr. Casanova. JOB# [id number]
[2018-01-20] MEDS ORDERED: Fleet Enema 135 mL RC PRN (16:08)
[2018-01-20] MEDS ORDERED: Magnesium Hydroxide (MOM) 30 mL UDC PO PRN (16:08)
[2018-01-20] MEDS ORDERED: Non-Formulary Item 1 EA (Glucagon,Human Recombinant [Glucagon Emergency Kit] 1 MG) IJ PRN (16:08)
[2018-01-20] MEDS ORDERED: Non-Formulary Item 1 EA (Mylanta 30 ML) PO PRN (16:08)
[2018-01-20] MEDS ORDERED: Ipratropium Neb 0.5 mg/2.5 mL UD HHN SCH (16:15)
[2018-01-20] MEDS ORDERED: GLUCAGON HCl 1 MG KIT IVP PRN (16:26)
[2018-01-20] MEDS ORDERED: Maalox 30 mL Cup PO PRN (16:29)
[2018-01-20] MEDS ORDERED: MEGESTROL ACETATE PO SCH (17:00)
[2018-01-20] MEDS: D5-0.45NS 1,000 ML IV SCH (18:28)
[2018-01-20] MEDS: INSULIN ASPART SLIDING SCALE 100 UNITS/ML UNIT SUBQ SCH ×2 (18:29→21:37)
[2018-01-20] MEDS: Diltiazem 30 mg Tab PO SCH (18:33)
[2018-01-20] MEDS ORDERED: Meropenem 1 GM in Sodium Chloride 0.9% 100 ML IV SCH (21:00)
[2018-01-20 21:31] LABS: A1C % 5.1 % (4.0-6.0)
[2018-01-20] MEDS: NYSTATIN 100000 UNITS/GM POWD TP SCH (21:32)
--- NOTE | 2018-01-21 00:02 | Consultation ---
Consult Note - Consult Note Service Date: 01/20/18 Referring Physician: Willie Casanova Consult Note: PHYSICIAN Consultation Note: Date of Admission: 01/20/18 Purpose of Consultation: Pneumonia. Sepsis. Chief Complaint: Patient SARAH ROGERS was admitted to [facility] with LEFT LUNG INFILTRATE. History of Present Illness: 82-year-old female with a past medical history of dementia, chronic lung disease brought from nursing facility for leukocytosis with WBC Count of 20,000. On initial evaluation, her temperature was 99.2 F and her WBC count was 24,000. Sepsis workup was performed. CXR revealed Left lower lobe infiltrates. Patient has received vancomycin and Zosyn. ID consult was called for antibiotic management. Chest x-ray showed chronic infiltrates. Past Medical History: dementia, chronic lung disease. Allergies Allergy/AdvReac Type Severity Reaction Status Date / Time Plastic Tape Allergy Uncoded 01/05/18 14:09 Vital Signs Temp 97.6 F 01/20/18 20:00 Pulse 67 01/20/18 20:00 Resp 18 01/20/18 23:00 BP 95/49 01/20/18 20:00 Pulse Ox 98 01/20/18 20:00 Intake & Output 01/20/18 01/20/18 01/21/18 06:59 18:59 06:59 Intake Total 1000 250 Balance 1000 250 Weight (lbs) 40.823 kg Intake: Intake, IV Amount 1000 Sodium Chloride 0.9% 1, 1000 000 ml @ Wide Open IV . Q0M ONE Rx#:[id number] Oral 250 Other: # Voids 2 # Bowel Movements 0 Laboratory Results - last 24 hr 01/20/18 01/20/18 01/20/18 15:41 17:59 20:53 POC Glucose 127 H 165 H Whole Bld Lactic Acid 1.31 Home Medication Medication Instructions Recorded Type Bisacodyl [Dulcolax 10 Mg Supp] 10 mg RC DAILY PRN 01/05/18 History Dextrose Oral Gel [Glutose 40%] 15 gm PO PRN PRN 01/05/18 History Fleet Enema 135 ml RC DAILY PRN 01/05/18 History Glucagon,Human Recombinant 1 mg IJ PRN PRN 01/05/18 History [Glucagon Emergency Kit] Insulin Human Regular [NovoLIN R*] 0 units SUBQ ACHS 01/05/18 History Magnesium Hydroxide [Milk of 30 ml PO DAILY PRN 01/05/18 History Magnesia] Megestrol Acetate [Megace] 10 ml PO BID 01/05/18 History Multivitamin [Theragran] 1 tab PO DAILY 01/05/18 History Omeprazole 40 mg PO DAILY 01/05/18 History Diltiazem [Cardizem*] 60 mg PO Q6HR tab 01/09/18 Rx Enalapril Maleate [Vasotec] 2.5 mg PO Q6HR PRN tab 01/09/18 Rx Nystatin [Nystop] 100,000 units TP QSHIFT bottle 01/09/18 Rx predniSONE [Deltasone] 10 mg PO DAILY tab 01/09/18 Rx Acetaminophen [Tylenol] 650 mg PO Q4H PRN 01/20/18 History Atorvastatin Calcium [Lipitor] 80 mg PO HS 01/20/18 History Carvedilol [Coreg] 12.5 mg PO BID 01/20/18 History Dextrose 50% [D50w] 50 ml IV PRN PRN 01/20/18 History Ipratropium Neb 0.5 mg/2.5 mL 0.5 mg HHN Q8H 01/20/18 History [Atrovent Neb 0.5MG/2.5ML] Mylanta 30 ml PO Q6H PRN 01/20/18 History Ondansetron [Zofran Odt] 4 mg PO Q6H PRN 01/20/18 History Vits A & D/White Pet/Lanolin [A + 1 unit TP DAILY 01/20/18 History D Ointment] Current Medications Generic Name Dose Route Start Last Admin Trade Name Arslanq PRN Reason Stop Dose Admin Acetaminophen 650 mg 01/20/18 16:08 Tylenol PO 03/21/18 16:07 Q4H PRN MILD PAIN OR TEMP >100.4 Al Hydrox/Mg Hydrox/Simethicone 30 ml 01/20/18 16:29 Maalox PO 03/21/18 16:28 Q6HR PRN GI DISTRESS Atorvastatin Calcium 80 mg 01/20/18 21:00 01/20/18 21:32 Lipitor PO 03/21/18 20:59 80 mg HS HARRIET Administration Protocol Bisacodyl 10 mg 01/20/18 16:08 Dulcolax 10 Mg Supp RC 03/21/18 16:07 DAILY PRN Constipation Carvedilol 12.5 mg 01/20/18 17:00 01/20/18 18:33 Coreg PO 03/21/18 16:59 12.5 mg BID HARRIET Administration Dextrose 50 ml 01/20/18 16:08 D50w IVP 03/21/18 16:07 PRN PRN HYPOGLYCEMIA Diltiazem HCl 60 mg 01/20/18 18:00 01/20/18 18:33 Cardizem PO 03/21/18 17:59 60 mg Q6HR HARRIET Administration Enalapril Maleate 2.5 mg 01/20/18 16:08 Vasotec PO 03/21/18 16:07 Q6HR PRN FOR SPB ABOVE 160 Glucagon 1 mg 01/20/18 16:26 Glucagen IVP 03/21/18 16:25 PRN PRN HYPOGLYCEMIA Meropenem 1 gm/ Sodium 100 mls @ 100 mls/hr 01/20/18 21:00 01/20/18 22:30 Chloride IV 03/21/18 20:59 100 mls/hr Q12H HARRIET Administration Piperacillin Sod/Tazobactam 50 mls @ 100 mls/hr 01/20/18 18:00 01/20/18 18:31 Sod 3.375 gm/ Sodium Chloride IV 03/21/18 17:59 100 mls/hr Q6HR HARRIET Administration Dextrose/Sodium Chloride 1,000 mls @ 50 mls/hr 01/20/18 16:10 01/20/18 18:28 D5-0.45ns IV 03/21/18 16:09 50 mls/hr .Q20H HARRIET Administration Vancomycin HCl 500 mg/ Sodium 100 mls @ 100 mls/hr 01/21/18 09:00 Chloride IV 03/22/18 08:59 Q24HR@0900 HARRIET Insulin Aspart 0 units 01/20/18 16:30 01/20/18 21:37 Novolog Insulin Sliding Scale SUBQ 03/21/18 16:29 2 units ACHS HARRIET Administration Protocol Magnesium Hydroxide 30 ml 01/20/18 16:08 Milk Of Magnesia PO 03/21/18 16:07 DAILY PRN IF NO BM IN TWO DAYS Megestrol Acetate 400 mg 01/20/18 17:00 01/20/18 18:31 Megace PO 03/21/18 16:59 400 mg BID HARRIET Administration Miscellaneous 1 ea 01/20/18 16:07 Vancomycin Iv Per Pharmacy 03/21/18 16:06 PRN PRN PROTOCOL Miscellaneous 1 ea 01/20/18 16:08 Zosyn Iv Per Pharmacy 03/21/18 16:07 PRN PRN PROTOCOL Multivitamins/Vitamin C 1 tab 01/21/18 09:00 Theragran PO 03/22/18 08:59 DAILY HARRIET Nystatin 100,000 units 01/20/18 20:00 01/20/18 21:32 Nystop TP 03/21/18 19:59 100,000 units QSHIFT HARRIET Administration Ondansetron HCl 4 mg 01/20/18 16:08 Zofran Odt PO 03/21/18 16:07 Q6H PRN Nausea / Vomiting Prednisone 10 mg 01/21/18 09:00 Deltasone PO 03/22/18 08:59 DAILY HARRIET Sodium Phosphate 135 ml 01/20/18 16:08 Fleet Enema RC 03/21/18 16:07 DAILY PRN Constipation Vitamin A 5 gm 01/21/18 09:00 Vitamin A & D TP 03/22/18 08:59 DAILY HARRIET Review of Systems: A 12 point ROS was reviewed with the pertinent positive and negatives noted in the HPI. Social History Smoking Status Unknown if ever smoked Family Medical History Family Medical History Start: 01/20/18 14: 25 Freq: ONCE Status: Active Document 01/20/18 17:08 BRIGIDA (Rec: 01/20/18 17:20 BRIGIDA [id number] ) Family Medical History Father History Unknown Yes Physical Exam: General: Comfortable, well-nourished. Confused. Supple, no Tia, no icterus. Muscles. HEENT: Head: Normocytic, atraumatic. Oral cavity: Moist, pink eyes: Pallor is present icterus. Neck: Supple, no JVD TO be. Cardio: S1 and S2 within normal limits regular rhythm. Respiratory: Vesicular breath sound, no crackles no wheezing. Abdominal: Soft, nontender nondistended Genital/Urinary: Deferred Extremities: No cyanosis, no clubbing, no edema. Neurological: Alert and awake. Assessment: 1. Leukocytosis. 2. Pneumonia. 3. Dementia Plan: Start zosyn, stool for c diff. Follow the cultures. Thank you, Dr Casanova for involving me in taking care of this patient. Signed, Inocencio Gutierrez M.D.
[2018-01-21] MEDS: Diltiazem 30 mg Tab PO SCH ×4 (00:35→17:24)
[2018-01-21 05:35] LABS: HEMOGLOBIN 8.9 gm/dL (12-16); LYMPHOCYTE ABSOLUTE 0.7 Th/cmm (1.5-3.0); MEAN CELL VOLUME 88.4 fl (81-100); MEAN CORPUSCULAR HEMOGLOBIN 30.2 pg (27.0-31.0); MEAN CORPUSCULAR HGB CONC 34.1 pg (28.0-36.0); MEAN PLATELET VOLUME 7.7 fl; MONOCYTE ABSOLUTE 0.3 Th/cmm (0.3-1.0); NEUTROPHILE ABSOLUTE 14.5 Th/cmm (1.8-8.0); PLATELET COUNT 252 Th/cmm (150-400); RED BLOOD COUNT 2.96 Mil/cmm (3.80-5.20)
[2018-01-21 05:44] LABS: WHITE BLOOD COUNT 15.5 Th/cmm (4.8-10.8)
[2018-01-21 05:50] LABS: % BASOPHILS 0.2 % (0.0-2.0); % EOSINOPHILS 0.1 % (0.0-5.0); % LYMPHOCYTES 4.3 % (20.0-50.0); % MONOCYTES 2.2 % (2.0-10.0); % NEUTROPHILS 93.2 % (40.0-80.0)
[2018-01-21 05:51] LABS: HEMATOCRIT 26.2 % (41.0-60)
[2018-01-21 06:18] LABS: ANION GAP 4.2 (7.0-16.0); BUN - UREA NITROGEN 32 mg/dL (7-25); CALCIUM SERUM 7.5 mg/dL (8.6-10.3); CARBON DIOXIDE 32.8 mEq/L (21.0-31.0); CHLORIDE 105 mEq/L (98-107); CREATININE - SERUM 0.9 mg/dL (0.6-1.2); GLUCOSE 180 mg/dL (70-105); SODIUM SERUM 138 mEq/L (136-145)
--- NOTE | 2018-01-21 08:27 | Diagnostic Imaging Report ---
CHEST X-RAY: AP view INDICATION: Shortness of breath COMPARISON: 01/05/2018 FINDINGS: Chronic COPD lung changes are noted with mild increased right basal densities. No pleural effusions. Heart size normal. Atherosclerosis is noted. Degenerative changes spine are noted with multiple spinal compression deformities. IMPRESSION: Chronic lung changes and COPD. Faint infiltrate in the right lung base is suspected. Clinical correlation and follow-up recommended Atherosclerotic vascular disease. Spinal compression deformities which may be due to osteopenia.
[2018-01-21] MEDS: Multivitamin Tab PO SCH (08:55)
[2018-01-21] MEDS: Vitamin A/Vitamin D 5 gm Packet TP SCH (08:55)
[2018-01-21] MEDS: NYSTATIN 100000 UNITS/GM POWD TP SCH ×2 (08:55→23:47)
[2018-01-21] MEDS ORDERED: VITS A TP SCH (09:00)
[2018-01-21] MEDS ORDERED: WHITE PET TP SCH (09:00)
[2018-01-21] MEDS ORDERED: [UNRECOGNIZED DRUG - OTHER] TP SCH (09:00)
[2018-01-21] MEDS ORDERED: LANOLIN TP SCH (09:00)
[2018-01-21] MEDS ORDERED: Non-Formulary Item 1 EA (Omeprazole [Omeprazole] 40 MG) PO SCH (09:00)
[2018-01-21] MEDS ORDERED: Vancomycin HCl 500 MG in Sodium Chloride 0.9% 100 ML IV SCH (09:00)
[2018-01-21] MEDS: INSULIN ASPART SLIDING SCALE 100 UNITS/ML UNIT SUBQ SCH ×5 (09:14→23:45)
[2018-01-21 10:16] LABS: IRON LC 54 ug/dL (27-139); TIBC (LC) 159 ug/dL (250-450); UIBC 105 ug/dL (118-369)
--- NOTE | 2018-01-21 10:18 | Consultation ---
DATE OF CONSULTATION: 01/20/[address] Casanova for this consultation. HISTORY OF PRESENT ILLNESS: This is an 82-year-old female, snf resident, presented after some cough and congestion, had a chest x-ray and CBC done at the sn[facility] in [facility]. Her CBC showed a white count of 20,000 and a chest x-ray with bilateral infiltrate. The patient presented. The patient's CBC showed a white count of 24,000. The patient received 3 antibiotics, vancomycin, meropenem, and was admitted for further treatment and management. There is no chest x-ray done here yet. The patient in the Emergency Room, having some congestion, some shortness of breath, saturating adequately with nasal cannula about 94%-95%. PHYSICAL EXAMINATION: GENERAL: The patient is awake and alert, not in acute distress. VITAL SIGNS: Temperature is 99.2, pulse 120, respirations 22, blood pressure 124/76 and saturation 94%. HEENT: Atraumatic, normocephalic. Pupils equal and reactive to light and accommodation. Ears, nose, and throat normal. NECK: Supple. No JVD. CHEST: There are rhonchi and decreased breath sounds at bases. HEART: Sinus tachycardia. No murmurs. ABDOMEN: Soft. EXTREMITIES: Lower extremities, no edema. LABORATORY DATA: WBC 24.0, hemoglobin 11.1, hematocrit 33.1, platelets 312. Sodium is 137, potassium 4.5, BUN is 36, creatinine 0.8. Lactic acid 2.41. BNP 143. IMPRESSION: This is an 82-year-old female with: 1. Bilateral pneumonia. 2. Respiratory failure. 3. Weakness. 4. Dementia. PLAN: 1. IV antibiotics. 2. Nebulizer treatment. 3. Pulmonary toilet. 4. Followup chest x-ray. I will follow the patient with you. JOB# [id number] TORREY
[2018-01-21 14:39] LABS: pH 7.25 (7.35-7.45)
[2018-01-21 14:40] LABS: ALLEN TEST PASS
--- NOTE | 2018-01-21 15:12 | Infectious Disease Prog Note ---
Infectious Disease Subjective - Review of Systems Service Date: 01/21/18 Subjective: There is no new change. No fever. Infectious Disease Objective - Results Result Diagrams: 01/21/18 05:15 01/21/18 05:15 Recent Labs: Laboratory Last Values WBC 15.5 Th/cmm (4.8-10.8) H D 01/21/18 05:15 RBC 2.96 Mil/cmm (3.80-5.20) L 01/21/18 05:15 Hgb 8.9 gm/dL (12-16) L 01/21/18 05:15 Hct 26.2 % (41.0-60) L D 01/21/18 05:15 MCV 88.4 fl (81-100) 01/21/18 05:15 MCH 30.2 pg (27.0-31.0) 01/21/18 05:15 MCHC Differential 34.1 pg (28.0-36.0) 01/21/18 05:15 RDW 16.0 % (11.5-20.0) 01/21/18 05:15 Plt Count 252 Th/cmm (150-400) 01/21/18 05:15 MPV 7.7 fl 01/21/18 05:15 Neutrophils % 93.2 % (40.0-80.0) H 01/21/18 05:15 Band Neutrophils % 1 % (0-10) 01/20/18 12:15 Lymphocytes % 4.3 % (20.0-50.0) L 01/21/18 05:15 Monocytes % 2.2 % (2.0-10.0) 01/21/18 05:15 Eosinophils % 0.1 % (0.0-5.0) 01/21/18 05:15 Basophils % 0.2 % (0.0-2.0) 01/21/18 05:15 Neutrophils (Manual) 86 % (40-80) H 01/20/18 12:15 Lymphocytes 6 % (20-50) L 01/20/18 12:15 Monocytes 6 % (2-10) 01/20/18 12:15 Eosinophils 1 % (0-5) 01/20/18 12:15 Platelet Estimate ADEQUATE (NORMAL) 01/20/18 12:15 Specimen Source Arterial 01/21/18 14:25 Sample Site Right Radial 01/21/18 14:25 pH 7.25 (7.35-7.45) L 01/21/18 14:25 pCO2 82.0 mmHg (35.0-45.0) H* 01/21/18 14:25 pO2 53.0 mmHg (80.0-100.0) L 01/21/18 14:25 HCO3 29.3 mEq/L (20.0-26.0) H 01/21/18 14:25 Base Excess 6.1 mEq/L (-3.0-3.0) H 01/21/18 14:25 O2 Saturation 81.0 % (92.0-100.0) L 01/21/18 14:25 Bebo Test PASS 01/21/18 14:25 Inspired O2 28 01/21/18 14:25 Critical Value PW 01/21/18 14:25 Sodium 138 mEq/L (136-145) 01/21/18 05:15 Potassium 4.0 mEq/L (3.5-5.1) 01/21/18 05:15 Chloride 105 mEq/L (98-107) 01/21/18 05:15 Carbon Dioxide 32.8 mEq/L (21.0-31.0) H 01/21/18 05:15 Anion Gap 4.2 (7.0-16.0) L 01/21/18 05:15 BUN 32 mg/dL (7-25) H 01/21/18 05:15 Creatinine 0.9 mg/dL (0.6-1.2) 01/21/18 05:15 Est GFR ( Amer) TNP 01/21/18 05:15 Est GFR (Non-Af Amer) [facility] 01/21/18 05:15 BUN/Creatinine Ratio 35.6 01/21/18 05:15 Glucose 180 mg/dL (70-105) H 01/21/18 05:15 POC Glucose 261 MG/DL (70 - 105) H 01/21/18 11:58 Hemoglobin A1c % 5.1 % (4.0-6.0) 01/20/18 12:15 Whole Bld Lactic Acid 1.31 mmol/L (0.60-1.99) 01/20/18 15:41 Calcium 7.5 mg/dL (8.6-10.3) L 01/21/18 05:15 Iron 54 ug/dL (27-139) 01/20/18 12:50 TIBC 159 ug/dL (250-450) L 01/20/18 12:50 Iron Saturation 34 % (15-55) 01/20/18 12:50 Unsaturated IBC 105 ug/dL (118-369) L 01/20/18 12:50 Total Bilirubin 0.3 mg/dL (0.3-1.0) 01/20/18 12:30 Direct Bilirubin 0.07 mg/dL (0.0-0.2) 01/20/18 12:30 AST 32 U/L (13-39) 01/20/18 12:30 ALT 25 U/L (7-52) 01/20/18 12:30 Alkaline Phosphatase 73 U/L (34-104) 01/20/18 12:30 Troponin I 0.03 ng/mL (0.01-0.05) 01/20/18 12:15 C-Reactive Protein 4.3 mg/dL (0.0-0.9) H 01/20/18 12:50 B-Natriuretic Peptide 143.0 pg/mL (5.0-100.0) H 01/20/18 12:15 Total Protein gm/dL (6.0-8.3) 01/20/18 12:30 Albumin 3.0 gm/dL (3.7-5.3) L 01/20/18 12:30 Globulin 2.5 gm/dL 01/20/18 12:30 Albumin/Globulin Ratio 1.2 (1.0-1.8) 01/20/18 12:30 Triglycerides 97 mg/dL (<150) 01/20/18 12:15 Cholesterol 195 mg/dL (<200) 01/20/18 12:15 LDL Cholesterol Direct 152 mg/dL (75-193) 01/20/18 12:15 HDL Cholesterol 40 mg/dL (23-92) 01/20/18 12:15 Lipase 108 U/L (11-82) H 01/20/18 12:15 TSH 0.06 uIU/ml (0.34-5.60) L 01/20/18 12:15 - Physical Exam Vitals and I&O: Vital Signs Temp 97.4 F 03/12/18 12:00 Pulse 72 01/21/18 09:11 Resp 20 01/21/18 12:00 BP 124/60 01/21/18 12:00 Pulse Ox 98 01/21/18 12:00 Intake & Output 01/20/18 01/21/18 01/21/18 18:59 06:59 18:59 Intake Total 1000 400 Balance 1000 400 Weight (lbs) 37.467 kg Intake: Intake, IV Amount 1000 150 Piperacillin Sodium/ 150 Tazobact 3.375 gm In Sodium Chloride 0.9% 50 ml @ 100 mls/hr IV Q6HR [facility] Rx#:[id number] Sodium Chloride 0.9% 1, 1000 000 ml @ Wide Open IV . Q0M ONE Rx#:[id number] Oral 250 Other: # Voids 2 # Bowel Movements 0 Active Medications: Current Medications Acetaminophen (Tylenol) 650 mg PO Q4H PRN PRN Reason: MILD PAIN OR TEMP >100.4 Stop: 03/21/18 16:07 Al Hydrox/Mg Hydrox/Simethicone (Maalox) 30 ml PO Q6HR PRN PRN Reason: GI DISTRESS Stop: 03/21/18 16:28 Atorvastatin Calcium (Lipitor) 80 mg PO HS HARRIET PRN Reason: Protocol Stop: 03/21/18 20:59 Last Admin: 01/20/18 21:32 Dose: 80 mg Bisacodyl (Dulcolax 10 Mg Supp) 10 mg RC DAILY PRN PRN Reason: Constipation Stop: 03/21/18 16:07 Carvedilol (Coreg) 12.5 mg PO BID [facility] Stop: 03/21/18 16:59 Last Admin: 01/21/18 09:11 Dose: Not Given Dextrose (D50w) 50 ml IVP PRN PRN PRN Reason: HYPOGLYCEMIA Stop: 03/21/18 16:07 Diltiazem HCl (Cardizem) 60 mg PO Q6HR [facility] Stop: 03/21/18 17:59 Last Admin: 01/21/18 06:09 Dose: Not Given Enalapril Maleate (Vasotec) 2.5 mg PO Q6HR PRN PRN Reason: FOR SPB ABOVE 160 Stop: 03/21/18 16:07 Glucagon (Glucagen) 1 mg IVP PRN PRN PRN Reason: HYPOGLYCEMIA Stop: 03/21/18 16:25 Piperacillin Sod/Tazobactam (Sod 3.375 gm/ Sodium Chloride) 50 mls @ 100 mls/ hr IV Q6HR [facility] Stop: 03/21/18 17:59 Last Admin: 01/21/18 11:55 Dose: 100 mls/hr Dextrose/Sodium Chloride (D5-0.45ns) 1,000 mls @ 50 mls/hr IV .Q20H [facility] Stop: 03/21/18 16:09 Last Admin: 01/20/18 18:28 Dose: 50 mls/hr Insulin Aspart (Novolog Insulin Sliding Scale) 0 units SUBQ ACHS HARRIET PRN Reason: Protocol Stop: 03/21/18 16:29 Last Admin: 01/21/18 11:59 Dose: 6 units Magnesium Hydroxide (Milk Of Magnesia) 30 ml PO DAILY PRN PRN Reason: IF NO BM IN TWO DAYS Stop: 03/21/18 16:07 Megestrol Acetate (Megace) 400 mg PO BID [facility] Stop: 03/21/18 16:59 Last Admin: 01/21/18 08:55 Dose: 400 mg Miscellaneous (Zosyn Iv Per Pharmacy) 1 ea MC PRN PRN PRN Reason: PROTOCOL Stop: 03/21/18 16:07 Multivitamins/Vitamin C (Theragran) 1 tab PO DAILY [facility] Stop: 03/22/18 08:59 Last Admin: 01/21/18 08:55 Dose: 1 tab Nystatin (Nystop) 100,000 units TP QSHIFT [facility] Stop: 03/21/18 19:59 Last Admin: 01/21/18 08:55 Dose: 100,000 units Ondansetron HCl (Zofran Odt) 4 mg PO Q6H PRN PRN Reason: Nausea / Vomiting Stop: 03/21/18 16:07 Prednisone (Deltasone) 10 mg PO DAILY [facility] Stop: 03/22/18 08:59 Last Admin: 01/21/18 08:54 Dose: 10 mg Sodium Phosphate (Fleet Enema) 135 ml RC DAILY PRN PRN Reason: Constipation Stop: 03/21/18 16:07 Vitamin A (Vitamin A & D) 5 gm TP DAILY [facility] Stop: 03/22/18 08:59 Last Admin: 01/21/18 08:55 Dose: 5 gm General: no acute distress, well developed, well nourished HEENT: atraumatic, normocephalic, PERRLA, EOMI, moist mucous membrane Neck: supple, no thyromegaly Cardiovascular: S1S2, regular Lungs: clear to auscultation bilaterally, clear to percussion Abdomen: soft, no tender, no distended Extremities: no cyanosis, no clubbing Neurological: awake, alert Skin: intact Infectious Disease Assmt/Plan - Problem List Patient Problems: All Active Problems ELEVATED WBC, LUNG INFILTRATES (Acute) - Assessment Assessment: 1. Leukocytosis. 2. Pneumonia. 3. Dementia - Plan Plan: Continue zosyn.
[2018-01-21] MEDS: D5-0.45NS 1,000 ML IV SCH (16:29)
[2018-01-21 17:59] LABS: pH 7.32 (7.35-7.45)
[2018-01-21 18:00] LABS: ALLEN TEST PASS
[2018-01-22] MEDS: Diltiazem 30 mg Tab PO SCH ×3 (00:20→12:13)
--- NOTE | 2018-01-22 08:19 | Diagnostic Imaging Report ---
Portable chest x-ray HISTORY: Shortness of breath Compared with the prior exam of January 20, 2018, there remains bilateral predominantly lower lobe interstitial lung changes. Findings may be chronic. Pneumonia cannot be definitely excluded. Clinical correlation is needed. The heart size is normal (chronic calcination seen in the aorta. IMPRESSION: 1. No change from January 20, 2018. Bilateral predominantly lower lobe interstitial lung changes. Findings may be chronic. However, pneumonia cannot be excluded. Clinical correlation is needed.
[2018-01-22 08:35] LABS: pH 7.35 (7.35-7.45)
[2018-01-22 08:36] LABS: ALLEN TEST PASS
[2018-01-22] MEDS: INSULIN ASPART SLIDING SCALE 100 UNITS/ML UNIT SUBQ SCH ×4 (08:42→21:00)
[2018-01-22] MEDS: Multivitamin Tab PO SCH (10:37)
[2018-01-22] MEDS: Vitamin A/Vitamin D 5 gm Packet TP SCH (10:44)
[2018-01-22] MEDS: NYSTATIN 100000 UNITS/GM POWD TP SCH ×2 (12:12→21:52)
--- NOTE | 2018-01-22 16:06 | History and Physical ---
History of Present Illness - HPI Chief Complaint: wbc 20,000. HPI: This is a 82 year old female who is a [facility] resident admitted to the telemetry unit due to elevated wbc of 20,000. Patient had a chest xray done and shows chronic infiltrates patient is now admitted for further management Vital Signs: Last Vital Signs Temp 98.7 F 01/22/18 11:54 Pulse 99 01/22/18 12:13 Resp 14 01/22/18 15:05 BP 151/76 01/22/18 11:54 Pulse Ox 97 01/22/18 15:05 Past Medical History Other History: dementia, chronic lung disease Family Medical History - Family Member Father History Unknown: Yes Social History Smoke: No Alcohol: None Drugs: None Lives: [facility] - Medications Home Medications: Home Medication Medication Instructions Recorded Type Bisacodyl [Dulcolax 10 Mg Supp] 10 mg RC DAILY PRN 01/05/18 History Dextrose Oral Gel [Glutose 40%] 15 gm PO PRN PRN 01/05/18 History Fleet Enema 135 ml RC DAILY PRN 01/05/18 History Glucagon,Human Recombinant 1 mg IJ PRN PRN 01/05/18 History [Glucagon Emergency Kit] Insulin Human Regular [NovoLIN R*] 0 units SUBQ ACHS 01/05/18 History Magnesium Hydroxide [Milk of 30 ml PO DAILY PRN 01/05/18 History Magnesia] Megestrol Acetate [Megace] 10 ml PO BID 01/05/18 History Multivitamin [Theragran] 1 tab PO DAILY 01/05/18 History Omeprazole 40 mg PO DAILY 01/05/18 History Diltiazem [Cardizem*] 60 mg PO Q6HR tab 01/09/18 Rx Enalapril Maleate [Vasotec] 2.5 mg PO Q6HR PRN tab 01/09/18 Rx Nystatin [Nystop] 100,000 units TP QSHIFT bottle 01/09/18 Rx predniSONE [Deltasone] 10 mg PO DAILY tab 01/09/18 Rx Acetaminophen [Tylenol] 650 mg PO Q4H PRN 01/20/18 History Atorvastatin Calcium [Lipitor] 80 mg PO HS 01/20/18 History Carvedilol [Coreg] 12.5 mg PO BID 01/20/18 History Dextrose 50% [D50w] 50 ml IV PRN PRN 01/20/18 History Ipratropium Neb 0.5 mg/2.5 mL 0.5 mg HHN Q8H 01/20/18 History [Atrovent Neb 0.5MG/2.5ML] Mylanta 30 ml PO Q6H PRN 01/20/18 History Ondansetron [Zofran Odt] 4 mg PO Q6H PRN 01/20/18 History Vits A & D/White Pet/Lanolin [A + 1 unit TP DAILY 01/20/18 History D Ointment] - Allergies Allergies/Adverse Reactions: Allergies Allergy/AdvReac Type Severity Reaction Status Date / Time Plastic Tape Allergy Uncoded 01/05/18 14:09 Review of Systems - Review of Systems Constitutional: Report: No Significant Eyes: Report: No Significant ENT: Report: No Significant Respiratory: Report: No Significant Cardiovascular: Report: No Significant Genitourinary: Report: No Significant Musculoskeletal: Report: No Significant Skin: Report: No Significant Neurological: Report: Weakness Physical Exam - Physical Exam HEENT: Report: Ears Nose Throat within normal limits Neck: Report: Within normal limits Cardiovascular Systems: Report: +s1/s2 noted, Regular, Rate and Rhythm Respiratory: Report: Rhonchi Abdomen: Report: Non-tender to palpation Skin: Report: Warm, Dry Neuro/Psych: Report: Weakness or sensory loss noted. - Lab Results All Lab Results last 24 hours: Laboratory Results - last 24 hr 01/21/18 01/21/18 01/21/18 16:41 17:47 21:13 Specimen Source Arterial Sample Site Right Radial pH 7.32 L pCO2 72.0 H* pO2 99.0 HCO3 31.6 H Base Excess 8.5 H O2 Saturation 97.0 Bebo Test PASS Vent Rate 14 Inspired O2 40 Pressure (ins/psv/peep) 6 Critical Value PW POC Glucose 188 H 191 H Vancomycin Trough 01/22/18 01/22/18 01/22/18 05:29 08:10 08:20 Specimen Source Arterial Sample Site Right Radial pH 7.35 pCO2 67.0 H* pO2 125.0 H HCO3 32.0 H Base Excess 9.0 H O2 Saturation 99.0 Bebo Test PASS Vent Rate 14 Inspired O2 40 Pressure (ins/psv/peep) Critical Value PW POC Glucose 119 H Vancomycin Trough 6.7 L 01/22/18 11:59 Specimen Source Sample Site pH pCO2 pO2 HCO3 Base Excess O2 Saturation Bebo Test Vent Rate Inspired O2 Pressure (ins/psv/peep) Critical Value POC Glucose 112 H Vancomycin Trough - Assessment Assessment: Current Active Problems Problem Status Onset ELEVATED WBC, LUNG INFILTRATES Acute Leukocytosis Pneumonia Dementia - Plan Plan: Ivantibiotics as per ID inhalation treatments and supplemental oxygen follow up labs in am continue current orders
[2018-01-22] MEDS: D5-0.45NS 1,000 ML IV SCH (17:03)
[2018-01-23] MEDS: Diltiazem 30 mg Tab PO SCH ×4 (01:34→17:09)
[2018-01-23 06:16] LABS: EOSINOPHILE ABSOLUTE 0.1 Th/cmm (0.1-0.4); HEMATOCRIT 29.6 % (41.0-60); HEMOGLOBIN 9.9 gm/dL (12-16); LYMPHOCYTE ABSOLUTE 1.1 Th/cmm (1.5-3.0); MEAN CELL VOLUME 88.9 fl (81-100); MEAN CORPUSCULAR HEMOGLOBIN 29.8 pg (27.0-31.0); MEAN CORPUSCULAR HGB CONC 33.5 pg (28.0-36.0); MEAN PLATELET VOLUME 7.5 fl; MONOCYTE ABSOLUTE 1.6 Th/cmm (0.3-1.0); NEUTROPHILE ABSOLUTE 18.1 Th/cmm (1.8-8.0); PLATELET COUNT 287 Th/cmm (150-400); RED BLOOD COUNT 3.33 Mil/cmm (3.80-5.20); RED CELL DISTRIBUTION WIDTH 15.9 % (11.5-20.0)
[2018-01-23 06:18] LABS: WHITE BLOOD COUNT 20.9 Th/cmm (4.8-10.8)
[2018-01-23 06:19] LABS: % EOSINOPHILS 0.5 % (0.0-5.0); % LYMPHOCYTES 5.3 % (20.0-50.0); % MONOCYTES 7.6 % (2.0-10.0); % NEUTROPHILS 86.6 % (40.0-80.0)
[2018-01-23 06:26] LABS: ANION GAP 3.8 (7.0-16.0); BUN - UREA NITROGEN 17 mg/dL (7-25); CALCIUM SERUM 8.4 mg/dL (8.6-10.3); CARBON DIOXIDE 34.4 mEq/L (21.0-31.0); CHLORIDE 103 mEq/L (98-107); CREATININE - SERUM 0.8 mg/dL (0.6-1.2); GLUCOSE 120 mg/dL (70-105); POTASSIUM SERUM 3.2 mEq/L (3.5-5.1); SODIUM SERUM 138 mEq/L (136-145)
[2018-01-23] MEDS: Multivitamin Tab PO SCH (08:45)
[2018-01-23] MEDS: Vitamin A/Vitamin D 5 gm Packet TP SCH (08:45)
[2018-01-23] MEDS: NYSTATIN 100000 UNITS/GM POWD TP SCH ×2 (08:46→20:27)
[2018-01-23 08:57] LABS: pH 7.38 (7.35-7.45)
[2018-01-23 08:58] LABS: ALLEN TEST Positive
[2018-01-23] MEDS: INSULIN ASPART SLIDING SCALE 100 UNITS/ML UNIT SUBQ SCH ×4 (08:59→20:27)
[2018-01-23] MEDS: D5-0.45NS 1,000 ML IV SCH (15:50)
--- NOTE | 2018-01-23 16:57 | Internal Medicine Prog Note ---
Internal Medicine Objective - Results Result Diagrams: 01/23/18 06:00 01/23/18 06:00 Recent Labs: Laboratory Last Values WBC 20.9 Th/cmm (4.8-10.8) H* 01/23/18 06:00 RBC 3.33 Mil/cmm (3.80-5.20) L 01/23/18 06:00 Hgb 9.9 gm/dL (12-16) L 01/23/18 06:00 Hct 29.6 % (41.0-60) L 01/23/18 06:00 MCV 88.9 fl (81-100) 01/23/18 06:00 MCH 29.8 pg (27.0-31.0) 01/23/18 06:00 MCHC Differential 33.5 pg (28.0-36.0) 01/23/18 06:00 RDW 15.9 % (11.5-20.0) 01/23/18 06:00 Plt Count 287 Th/cmm (150-400) 01/23/18 06:00 MPV 7.5 fl 01/23/18 06:00 Neutrophils % 86.6 % (40.0-80.0) H 01/23/18 06:00 Band Neutrophils % 1 % (0-10) 01/20/18 12:15 Lymphocytes % 5.3 % (20.0-50.0) L 01/23/18 06:00 Monocytes % 7.6 % (2.0-10.0) 01/23/18 06:00 Eosinophils % 0.5 % (0.0-5.0) 01/23/18 06:00 Basophils % 0.0 % (0.0-2.0) 01/23/18 06:00 Neutrophils (Manual) 86 % (40-80) H 01/20/18 12:15 Lymphocytes 6 % (20-50) L 01/20/18 12:15 Monocytes 6 % (2-10) 01/20/18 12:15 Eosinophils 1 % (0-5) 01/20/18 12:15 Platelet Estimate ADEQUATE (NORMAL) 01/20/18 12:15 Specimen Source Arterial 01/23/18 08:46 Sample Site Right Radial 01/23/18 08:46 pH 7.38 (7.35-7.45) 01/23/18 08:46 pCO2 64.0 mmHg (35.0-45.0) H* 01/23/18 08:46 pO2 75.0 mmHg (80.0-100.0) L 01/23/18 08:46 HCO3 33.0 mEq/L (20.0-26.0) H 01/23/18 08:46 Base Excess 10.4 mEq/L (-3.0-3.0) H 01/23/18 08:46 O2 Saturation 95.0 % (92.0-100.0) 01/23/18 08:46 Bebo Test Positive 01/23/18 08:46 Vent Rate 14 01/23/18 08:46 Inspired O2 30% 01/23/18 08:46 Tidal Volume NA 01/23/18 08:46 PEEP 9 01/23/18 08:46 Pressure (ins/psv/peep) 6 01/23/18 08:46 Critical Value LZHANG 01/23/18 08:46 Sodium 138 mEq/L (136-145) 01/23/18 06:00 Potassium 3.2 mEq/L (3.5-5.1) L 01/23/18 06:00 Chloride 103 mEq/L (98-107) 01/23/18 06:00 Carbon Dioxide 34.4 mEq/L (21.0-31.0) H 01/23/18 06:00 Anion Gap 3.8 (7.0-16.0) L 01/23/18 06:00 BUN 17 mg/dL (7-25) 01/23/18 06:00 Creatinine 0.8 mg/dL (0.6-1.2) 01/23/18 06:00 Est GFR ( Amer) TNP 01/23/18 06:00 Est GFR (Non-Af Amer) TNP 01/23/18 06:00 BUN/Creatinine Ratio 21.3 01/23/18 06:00 Glucose 120 mg/dL (70-105) H 01/23/18 06:00 POC Glucose 121 MG/DL (70 - 105) H 01/23/18 16:10 Hemoglobin A1c % 5.1 % (4.0-6.0) 01/20/18 12:15 Whole Bld Lactic Acid 1.31 mmol/L (0.60-1.99) 01/20/18 15:41 Calcium 8.4 mg/dL (8.6-10.3) L 01/23/18 06:00 Iron 54 ug/dL (27-139) 01/20/18 12:50 TIBC 159 ug/dL (250-450) L 01/20/18 12:50 Iron Saturation 34 % (15-55) 01/20/18 12:50 Unsaturated IBC 105 ug/dL (118-369) L 01/20/18 12:50 Ferritin 1230 ng/mL (15-150) H 01/20/18 12:50 Total Bilirubin 0.3 mg/dL (0.3-1.0) 01/20/18 12:30 Direct Bilirubin 0.07 mg/dL (0.0-0.2) 01/20/18 12:30 AST 32 U/L (13-39) 01/20/18 12:30 ALT 25 U/L (7-52) 01/20/18 12:30 Alkaline Phosphatase 73 U/L (34-104) 01/20/18 12:30 Troponin I 0.03 ng/mL (0.01-0.05) 01/20/18 12:15 C-Reactive Protein 4.3 mg/dL (0.0-0.9) H 01/20/18 12:50 B-Natriuretic Peptide 143.0 pg/mL (5.0-100.0) H 01/20/18 12:15 Total Protein gm/dL (6.0-8.3) 01/20/18 12:30 Albumin 3.0 gm/dL (3.7-5.3) L 01/20/18 12:30 Globulin 2.5 gm/dL 01/20/18 12:30 Albumin/Globulin Ratio 1.2 (1.0-1.8) 01/20/18 12:30 Triglycerides 97 mg/dL (<150) 01/20/18 12:15 Cholesterol 195 mg/dL (<200) 01/20/18 12:15 LDL Cholesterol Direct 152 mg/dL (75-193) 01/20/18 12:15 HDL Cholesterol 40 mg/dL (23-92) 01/20/18 12:15 Lipase 108 U/L (11-82) H 01/20/18 12:15 Free T4 1.12 ng/dL (0.82-1.77) 01/20/18 12:50 TSH 0.06 uIU/ml (0.34-5.60) L 01/20/18 12:15 Vancomycin Trough 6.7 ug/mL (10-20) L 01/22/18 08:20 - Physical Exam Vitals and I&O: Vital Signs Temp 97.4 F 01/23/18 12:00 Pulse 97 01/23/18 16:39 Resp 18 01/23/18 15:30 BP 140/74 01/23/18 16:39 Pulse Ox 98 01/23/18 15:30 Intake & Output 01/22/18 01/23/18 01/23/18 18:59 06:59 18:59 Intake Total 7549 070 1955 Balance 4870 059 1479 Weight (lbs) 39.689 kg Intake: Intake, IV Amount 7337 279 6066 D5-0.45NS 1,000 ml @ 50 1000 1000 mls/hr IV .Q20H [facility] Rx#: [id number] Piperacillin Sodium/ 100 100 50 Tazobact 3.375 gm In Sodium Chloride 0.9% 50 ml @ 100 mls/hr IV Q6HR [facility] Rx#:[id number] Other: Stool Characteristics Soft Active Medications: Current Medications Acetaminophen (Tylenol) 650 mg PO Q4H PRN PRN Reason: MILD PAIN OR TEMP >100.4 Stop: 03/21/18 16:07 Al Hydrox/Mg Hydrox/Simethicone (Maalox) 30 ml PO Q6HR PRN PRN Reason: GI DISTRESS Stop: 03/21/18 16:28 Atorvastatin Calcium (Lipitor) 80 mg PO HS [facility] PRN Reason: Protocol Stop: 03/21/18 20:59 Last Admin: 01/22/18 21:59 Dose: Not Given Bisacodyl (Dulcolax 10 Mg Supp) 10 mg RC DAILY PRN PRN Reason: Constipation Stop: 03/21/18 16:07 Carvedilol (Coreg) 12.5 mg PO BID [facility] Stop: 03/21/18 16:59 Last Admin: 01/23/18 16:39 Dose: Not Given Dextrose (D50w) 50 ml IVP PRN PRN PRN Reason: HYPOGLYCEMIA Stop: 03/21/18 16:07 Diltiazem HCl (Cardizem) 60 mg PO Q6HR [facility] Stop: 03/21/18 17:59 Last Admin: 01/23/18 11:18 Dose: Not Given Enalapril Maleate (Vasotec) 2.5 mg PO Q6HR PRN PRN Reason: FOR SPB ABOVE 160 Stop: 03/21/18 16:07 Glucagon (Glucagen) 1 mg IVP PRN PRN PRN Reason: HYPOGLYCEMIA Stop: 03/21/18 16:25 Heparin Sodium (Porcine) (Heparin) 5,000 units SUBQ Q12HR [facility] Stop: 03/22/18 20:59 Last Admin: 01/23/18 08:41 Dose: 5,000 units Piperacillin Sod/Tazobactam (Sod 3.375 gm/ Sodium Chloride) 50 mls @ 100 mls/ hr IV Q6HR [facility] Stop: 03/21/18 17:59 Last Infusion: 01/23/18 11:48 Dose: Infused Dextrose/Sodium Chloride (D5-0.45ns) 1,000 mls @ 50 mls/hr IV .Q20H [facility] Stop: 03/21/18 16:09 Last Admin: 01/23/18 15:50 Dose: 50 mls/hr Insulin Aspart (Novolog Insulin Sliding Scale) 0 units SUBQ ACHS [facility] PRN Reason: Protocol Stop: 03/21/18 16:29 Last Admin: 01/23/18 16:38 Dose: Not Given Magnesium Hydroxide (Milk Of Magnesia) 30 ml PO DAILY PRN PRN Reason: IF NO BM IN TWO DAYS Stop: 03/21/18 16:07 Megestrol Acetate (Megace) 400 mg PO BID [facility] Stop: 03/21/18 16:59 Last Admin: 01/23/18 16:39 Dose: Not Given Miscellaneous (Zosyn Iv Per Pharmacy) 1 ea MC PRN PRN PRN Reason: PROTOCOL Stop: 03/21/18 16:07 Multivitamins/Vitamin C (Theragran) 1 tab PO DAILY [facility] Stop: 03/22/18 08:59 Last Admin: 01/23/18 08:45 Dose: Not Given Nystatin (Nystop) 100,000 units TP QSHIFT [facility] Stop: 03/21/18 19:59 Last Admin: 01/23/18 08:46 Dose: 100,000 units Ondansetron HCl (Zofran Odt) 4 mg PO Q6H PRN PRN Reason: Nausea / Vomiting Stop: 03/21/18 16:07 Prednisone (Deltasone) 10 mg PO DAILY [facility] Stop: 03/22/18 08:59 Last Admin: 01/23/18 08:45 Dose: Not Given Sodium Phosphate (Fleet Enema) 135 ml RC DAILY PRN PRN Reason: Constipation Stop: 03/21/18 16:07 Vitamin A (Vitamin A & D) 5 gm TP DAILY [facility] Stop: 03/22/18 08:59 Last Admin: 01/23/18 08:45 Dose: 5 gm Nutritional Asmnt/Malnutr-PDOC - Dietary Evaluation Malnutrition Findings (Please click <Entered> for more info): Nutritional Asmnt/Malnutrition Start: 01/21/18 16: 32 Text: Status: Complete Freq: Document 01/21/18 16:32 AMITA (Rec: 01/21/18 16:48 [id number]) Nutritional Asmnt/Malnutrition Patient General Information Nutritional Screening High Risk Consult Diagnosis left lung infiltrate Pertinent Medical Hx/Surgical Hx dementia, HTN, hyperlipidemia per ER notes, no H&P at this time Subjective Information Pt seen sleeping at time of visit, not able to wake up for lunch. Per [employer], pt only had cereal and scrambled eggs this morning, not able to chew the [place] toast d/t weakness. Current Diet Order/ Nutrition Support low cholesterol 300gm Pertinent Medications D5-0.45ns, novolog, megace, theragran, piperacillin, vit A &D Pertinent Labs 01/21 BUN 32, Glucose 180, POC 142-261 01/20 A1c 5.1, POC 127-165 Nutritional Hx/Data Height 1.6 m Height (Calculated Centimeters) 160.0 Current Weight (lbs) 37.648 kg Weight (Calculated Kilograms) 37.6 Weight (Calculated Grams) 31611.2 [place] Body Weight 115 Body Mass Index (BMI) 14.7 Weight Status Underweight GI Symptoms GI Symptoms None Last BM none Difficult in: None Skin Integrity/Comment: reddened to vagina and coccyx Current %PO Poor (25-49%) Estimated Nutritional Goals Calories/Kcals/Kg 25-30 Kcals Calculated 3676-4227 Protein g/k Protein Calculated 52 Fluid: ml 1300-1560ml (1ml/kcal) Nutritional Problem 2. Problem Problem chewing difficulty Etiology weakness, sleepy Signs/Symptoms: pt need for mech soft diet 1. Problem Problem altered nutrition related lab values Etiology hyperglycemia Signs/Symptoms: Glucose 180, POC 127-261 Intervention/Recommendation Comments 1. Recommend Mech soft ground diet with Boost BID to increase nutrition intake. 2. Monitor PO intake, wt, labs and skin integrity 3. F/U as high risk in 2-3 days, 01/23-01/24 Expected Outcomes/Goals Expected Outcomes/Goals 1. PO intake to meet at least 75% of nutritional needs. 2. Wt stability, skin to remain intact, labs to approach WNL.
[2018-01-24] MEDS: Diltiazem 30 mg Tab PO SCH ×4 (00:15→18:41)
[2018-01-24] MEDS: INSULIN ASPART SLIDING SCALE 100 UNITS/ML UNIT SUBQ SCH ×5 (06:32→23:49)
--- NOTE | 2018-01-24 08:53 | General Progress Note ---
Subjective - Review of Systems Events since last encounter: patient with no signs of distress awake Objective - Results Result Diagrams: 01/23/18 06:00 01/23/18 06:00 Recent Labs: Laboratory Last Values WBC 20.9 Th/cmm (4.8-10.8) H* 01/23/18 06:00 RBC 3.33 Mil/cmm (3.80-5.20) L 01/23/18 06:00 Hgb 9.9 gm/dL (12-16) L 01/23/18 06:00 Hct 29.6 % (41.0-60) L 01/23/18 06:00 MCV 88.9 fl (81-100) 01/23/18 06:00 MCH 29.8 pg (27.0-31.0) 01/23/18 06:00 MCHC Differential 33.5 pg (28.0-36.0) 01/23/18 06:00 RDW 15.9 % (11.5-20.0) 01/23/18 06:00 Plt Count 287 Th/cmm (150-400) 01/23/18 06:00 MPV 7.5 fl 01/23/18 06:00 Neutrophils % 86.6 % (40.0-80.0) H 01/23/18 06:00 Band Neutrophils % 1 % (0-10) 01/20/18 12:15 Lymphocytes % 5.3 % (20.0-50.0) L 01/23/18 06:00 Monocytes % 7.6 % (2.0-10.0) 01/23/18 06:00 Eosinophils % 0.5 % (0.0-5.0) 01/23/18 06:00 Basophils % 0.0 % (0.0-2.0) 01/23/18 06:00 Neutrophils (Manual) 86 % (40-80) H 01/20/18 12:15 Lymphocytes 6 % (20-50) L 01/20/18 12:15 Monocytes 6 % (2-10) 01/20/18 12:15 Eosinophils 1 % (0-5) 01/20/18 12:15 Platelet Estimate ADEQUATE (NORMAL) 01/20/18 12:15 Specimen Source Arterial 01/23/18 08:46 Sample Site Right Radial 01/23/18 08:46 pH 7.38 (7.35-7.45) 01/23/18 08:46 pCO2 64.0 mmHg (35.0-45.0) H* 01/23/18 08:46 pO2 75.0 mmHg (80.0-100.0) L 01/23/18 08:46 HCO3 33.0 mEq/L (20.0-26.0) H 01/23/18 08:46 Base Excess 10.4 mEq/L (-3.0-3.0) H 01/23/18 08:46 O2 Saturation 95.0 % (92.0-100.0) 01/23/18 08:46 Bebo Test Positive 01/23/18 08:46 Vent Rate 14 01/23/18 08:46 Inspired O2 30% 01/23/18 08:46 Tidal Volume NA 01/23/18 08:46 PEEP 9 01/23/18 08:46 Pressure (ins/psv/peep) 6 01/23/18 08:46 Critical Value LZHANG 01/23/18 08:46 Sodium 138 mEq/L (136-145) 01/23/18 06:00 Potassium 3.2 mEq/L (3.5-5.1) L 01/23/18 06:00 Chloride 103 mEq/L (98-107) 01/23/18 06:00 Carbon Dioxide 34.4 mEq/L (21.0-31.0) H 01/23/18 06:00 Anion Gap 3.8 (7.0-16.0) L 01/23/18 06:00 BUN 17 mg/dL (7-25) 01/23/18 06:00 Creatinine 0.8 mg/dL (0.6-1.2) 01/23/18 06:00 Est GFR ( Amer) TNP 01/23/18 06:00 Est GFR (Non-Af Amer) TNP 01/23/18 06:00 BUN/Creatinine Ratio 21.3 01/23/18 06:00 Glucose 120 mg/dL (70-105) H 01/23/18 06:00 POC Glucose 137 MG/DL (70 - 105) H 01/24/18 05:37 Hemoglobin A1c % 5.1 % (4.0-6.0) 01/20/18 12:15 Whole Bld Lactic Acid 1.31 mmol/L (0.60-1.99) 01/20/18 15:41 Calcium 8.4 mg/dL (8.6-10.3) L 01/23/18 06:00 Iron 54 ug/dL (27-139) 01/20/18 12:50 TIBC 159 ug/dL (250-450) L 01/20/18 12:50 Iron Saturation 34 % (15-55) 01/20/18 12:50 Unsaturated IBC 105 ug/dL (118-369) L 01/20/18 12:50 Ferritin 1230 ng/mL (15-150) H 01/20/18 12:50 Total Bilirubin 0.3 mg/dL (0.3-1.0) 01/20/18 12:30 Direct Bilirubin 0.07 mg/dL (0.0-0.2) 01/20/18 12:30 AST 32 U/L (13-39) 01/20/18 12:30 ALT 25 U/L (7-52) 01/20/18 12:30 Alkaline Phosphatase 73 U/L (34-104) 01/20/18 12:30 Troponin I 0.03 ng/mL (0.01-0.05) 01/20/18 12:15 C-Reactive Protein 4.3 mg/dL (0.0-0.9) H 01/20/18 12:50 B-Natriuretic Peptide 143.0 pg/mL (5.0-100.0) H 01/20/18 12:15 Total Protein gm/dL (6.0-8.3) 01/20/18 12:30 Albumin 3.0 gm/dL (3.7-5.3) L 01/20/18 12:30 Globulin 2.5 gm/dL 01/20/18 12:30 Albumin/Globulin Ratio 1.2 (1.0-1.8) 01/20/18 12:30 Triglycerides 97 mg/dL (<150) 01/20/18 12:15 Cholesterol 195 mg/dL (<200) 01/20/18 12:15 LDL Cholesterol Direct 152 mg/dL (75-193) 01/20/18 12:15 HDL Cholesterol 40 mg/dL (23-92) 01/20/18 12:15 Lipase 108 U/L (11-82) H 01/20/18 12:15 Free T4 1.12 ng/dL (0.82-1.77) 01/20/18 12:50 TSH 0.06 uIU/ml (0.34-5.60) L 01/20/18 12:15 Vancomycin Trough 6.7 ug/mL (10-20) L 01/22/18 08:20 - Physical Exam Vitals and I&O: Vital Signs Temp 97.5 F 01/24/18 04:00 Pulse 132 01/24/18 07:34 Resp 18 01/24/18 07:34 BP 159/92 01/24/18 04:00 Pulse Ox 100 01/24/18 07:34 Intake & Output 01/23/18 01/24/18 01/24/18 18:59 06:59 18:59 Intake Total 1100 100 Balance 1100 100 Weight (lbs) 42.547 kg Intake: Intake, IV Amount 1100 100 D5-0.45NS 1,000 ml @ 50 1000 mls/hr IV .Q20H [facility] Rx#: [id number] Piperacillin Sodium/ 100 100 Tazobact 3.375 gm In Sodium Chloride 0.9% 50 ml @ 100 mls/hr IV Q6HR [facility] Rx#:[id number] Other: # Voids 3 Active Medications: Current Medications Acetaminophen (Tylenol) 650 mg PO Q4H PRN PRN Reason: MILD PAIN OR TEMP >100.4 Stop: 03/21/18 16:07 Al Hydrox/Mg Hydrox/Simethicone (Maalox) 30 ml PO Q6HR PRN PRN Reason: GI DISTRESS Stop: 03/21/18 16:28 Atorvastatin Calcium (Lipitor) 80 mg PO HS [facility] PRN Reason: Protocol Stop: 03/21/18 20:59 Last Admin: 01/23/18 20:26 Dose: Not Given Bisacodyl (Dulcolax 10 Mg Supp) 10 mg RC DAILY PRN PRN Reason: Constipation Stop: 03/21/18 16:07 Carvedilol (Coreg) 12.5 mg PO BID [facility] Stop: 03/21/18 16:59 Last Admin: 01/23/18 16:39 Dose: Not Given Dextrose (D50w) 50 ml IVP PRN PRN PRN Reason: HYPOGLYCEMIA Stop: 03/21/18 16:07 Diltiazem HCl (Cardizem) 60 mg PO Q6HR [facility] Stop: 03/21/18 17:59 Last Admin: 01/24/18 05:57 Dose: Not Given Enalapril Maleate (Vasotec) 2.5 mg PO Q6HR PRN PRN Reason: FOR SPB ABOVE 160 Stop: 03/21/18 16:07 Glucagon (Glucagen) 1 mg IVP PRN PRN PRN Reason: HYPOGLYCEMIA Stop: 03/21/18 16:25 Heparin Sodium (Porcine) (Heparin) 5,000 units SUBQ Q12HR [facility] Stop: 03/22/18 20:59 Last Admin: 01/23/18 20:26 Dose: 5,000 units Piperacillin Sod/Tazobactam (Sod 3.375 gm/ Sodium Chloride) 50 mls @ 100 mls/ hr IV Q6HR [facility] Stop: 03/21/18 17:59 Last Infusion: 01/24/18 06:26 Dose: Infused Dextrose/Sodium Chloride (D5-0.45ns) 1,000 mls @ 50 mls/hr IV .Q20H [facility] Stop: 03/21/18 16:09 Last Admin: 01/23/18 15:50 Dose: 50 mls/hr Insulin Aspart (Novolog Insulin Sliding Scale) 0 units SUBQ ACHS [facility] PRN Reason: Protocol Stop: 03/21/18 16:29 Last Admin: 01/24/18 06:32 Dose: Not Given Magnesium Hydroxide (Milk Of Magnesia) 30 ml PO DAILY PRN PRN Reason: IF NO BM IN TWO DAYS Stop: 03/21/18 16:07 Megestrol Acetate (Megace) 400 mg PO BID [facility] Stop: 03/21/18 16:59 Last Admin: 01/23/18 16:39 Dose: Not Given Miscellaneous (Zosyn Iv Per Pharmacy) 1 ea MC PRN PRN PRN Reason: PROTOCOL Stop: 03/21/18 16:07 Multivitamins/Vitamin C (Theragran) 1 tab PO DAILY [facility] Stop: 03/22/18 08:59 Last Admin: 01/23/18 08:45 Dose: Not Given Nystatin (Nystop) 100,000 units TP QSHIFT [facility] Stop: 03/21/18 19:59 Last Admin: 01/23/18 20:27 Dose: 100,000 units Ondansetron HCl (Zofran Odt) 4 mg PO Q6H PRN PRN Reason: Nausea / Vomiting Stop: 03/21/18 16:07 Prednisone (Deltasone) 10 mg PO DAILY [facility] Stop: 03/22/18 08:59 Last Admin: 01/23/18 08:45 Dose: Not Given Sodium Phosphate (Fleet Enema) 135 ml RC DAILY PRN PRN Reason: Constipation Stop: 03/21/18 16:07 Vitamin A (Vitamin A & D) 5 gm TP DAILY [facility] Stop: 03/22/18 08:59 Last Admin: 01/23/18 08:45 Dose: 5 gm Assessment/Plan - Problem List Patient Problems: All Active Problems ELEVATED WBC, LUNG INFILTRATES (Acute) Nutritional Asmnt/Malnutr-PDOC - Dietary Evaluation Malnutrition Findings (Please click <Entered> for more info): Nutritional Asmnt/Malnutrition Start: 01/21/18 16: 32 Text: Status: Complete Freq: Document 01/21/18 16:32 AMITA (Rec: 01/21/18 16:48 [id number]) Nutritional Asmnt/Malnutrition Patient General Information Nutritional Screening High Risk Consult Diagnosis left lung infiltrate Pertinent Medical Hx/Surgical Hx dementia, HTN, hyperlipidemia per ER notes, no H&P at this time Subjective Information Pt seen sleeping at time of visit, not able to wake up for lunch. Per [facility], pt only had cereal and scrambled eggs this morning, not able to chew the [place] toast d/t weakness. Current Diet Order/ Nutrition Support low cholesterol 300gm Pertinent Medications D5-0.45ns, novolog, megace, theragran, piperacillin, vit A &D Pertinent Labs 01/21 BUN 32, Glucose 180, POC 142-261 01/20 A1c 5.1, POC 127-165 Nutritional Hx/Data Height 1.6 m Height (Calculated Centimeters) 160.0 Current Weight (lbs) 37.648 kg Weight (Calculated Kilograms) 37.6 Weight (Calculated Grams) 50499.2 [place] Body Weight 115 Body Mass Index (BMI) 14.7 Weight Status Underweight GI Symptoms GI Symptoms None Last BM none Difficult in: None Skin Integrity/Comment: reddened to vagina and coccyx Current %PO Poor (25-49%) Estimated Nutritional Goals Calories/Kcals/Kg 25-30 Kcals Calculated 0513-7017 Protein g/k Protein Calculated 52 Fluid: ml 1300-1560ml (1ml/kcal) Nutritional Problem 2. Problem Problem chewing difficulty Etiology weakness, sleepy Signs/Symptoms: pt need for mech soft diet 1. Problem Problem altered nutrition related lab values Etiology hyperglycemia Signs/Symptoms: Glucose 180, POC 127-261 Intervention/Recommendation Comments 1. Recommend Mech soft ground diet with Boost BID to increase nutrition intake. 2. Monitor PO intake, wt, labs and skin integrity 3. F/U as high risk in 2-3 days, 01/23-01/24 Expected Outcomes/Goals Expected Outcomes/Goals 1. PO intake to meet at least 75% of nutritional needs. 2. Wt stability, skin to remain intact, labs to approach WNL.
[2018-01-24] MEDS: NYSTATIN 100000 UNITS/GM POWD TP SCH (09:23)
[2018-01-24] MEDS: Multivitamin Tab PO SCH ×2 (09:24→09:34)
[2018-01-24] MEDS: Vitamin A/Vitamin D 5 gm Packet TP SCH (09:32)
[2018-01-24] MEDS ORDERED: Metoprolol tartrate 1 mg/ml 5mL Amp IV PRN (12:28)
--- NOTE | 2018-01-24 13:48 | Internal Medicine Prog Note ---
Internal Medicine Subjective - Subjective Service Date: 01/24/18 Patient seen and examined:: with staff Patient is:: awake Per staff patient has:: tolerating meds Internal Medicine Objective - Results Result Diagrams: 01/23/18 06:00 01/23/18 06:00 Recent Labs: Laboratory Last Values WBC 20.9 Th/cmm (4.8-10.8) H* 01/23/18 06:00 RBC 3.33 Mil/cmm (3.80-5.20) L 01/23/18 06:00 Hgb 9.9 gm/dL (12-16) L 01/23/18 06:00 Hct 29.6 % (41.0-60) L 01/23/18 06:00 MCV 88.9 fl (81-100) 01/23/18 06:00 MCH 29.8 pg (27.0-31.0) 01/23/18 06:00 MCHC Differential 33.5 pg (28.0-36.0) 01/23/18 06:00 RDW 15.9 % (11.5-20.0) 01/23/18 06:00 Plt Count 287 Th/cmm (150-400) 01/23/18 06:00 MPV 7.5 fl 01/23/18 06:00 Neutrophils % 86.6 % (40.0-80.0) H 01/23/18 06:00 Band Neutrophils % 1 % (0-10) 01/20/18 12:15 Lymphocytes % 5.3 % (20.0-50.0) L 01/23/18 06:00 Monocytes % 7.6 % (2.0-10.0) 01/23/18 06:00 Eosinophils % 0.5 % (0.0-5.0) 01/23/18 06:00 Basophils % 0.0 % (0.0-2.0) 01/23/18 06:00 Neutrophils (Manual) 86 % (40-80) H 01/20/18 12:15 Lymphocytes 6 % (20-50) L 01/20/18 12:15 Monocytes 6 % (2-10) 01/20/18 12:15 Eosinophils 1 % (0-5) 01/20/18 12:15 Platelet Estimate ADEQUATE (NORMAL) 01/20/18 12:15 Specimen Source Arterial 01/23/18 08:46 Sample Site Right Radial 01/23/18 08:46 pH 7.38 (7.35-7.45) 01/23/18 08:46 pCO2 64.0 mmHg (35.0-45.0) H* 01/23/18 08:46 pO2 75.0 mmHg (80.0-100.0) L 01/23/18 08:46 HCO3 33.0 mEq/L (20.0-26.0) H 01/23/18 08:46 Base Excess 10.4 mEq/L (-3.0-3.0) H 01/23/18 08:46 O2 Saturation 95.0 % (92.0-100.0) 01/23/18 08:46 Bebo Test Positive 01/23/18 08:46 Vent Rate 14 01/23/18 08:46 Inspired O2 30% 01/23/18 08:46 Tidal Volume NA 01/23/18 08:46 PEEP 9 01/23/18 08:46 Pressure (ins/psv/peep) 6 01/23/18 08:46 Critical Value LZHANG 01/23/18 08:46 Sodium 138 mEq/L (136-145) 01/23/18 06:00 Potassium 3.2 mEq/L (3.5-5.1) L 01/23/18 06:00 Chloride 103 mEq/L (98-107) 01/23/18 06:00 Carbon Dioxide 34.4 mEq/L (21.0-31.0) H 01/23/18 06:00 Anion Gap 3.8 (7.0-16.0) L 01/23/18 06:00 BUN 17 mg/dL (7-25) 01/23/18 06:00 Creatinine 0.8 mg/dL (0.6-1.2) 01/23/18 06:00 Est GFR ( Amer) TNP 01/23/18 06:00 Est GFR (Non-Af Amer) TNP 01/23/18 06:00 BUN/Creatinine Ratio 21.3 01/23/18 06:00 Glucose 120 mg/dL (70-105) H 01/23/18 06:00 POC Glucose 119 MG/DL (70 - 105) H 01/24/18 12:19 Hemoglobin A1c % 5.1 % (4.0-6.0) 01/20/18 12:15 Whole Bld Lactic Acid 1.31 mmol/L (0.60-1.99) 01/20/18 15:41 Calcium 8.4 mg/dL (8.6-10.3) L 01/23/18 06:00 Iron 54 ug/dL (27-139) 01/20/18 12:50 TIBC 159 ug/dL (250-450) L 01/20/18 12:50 Iron Saturation 34 % (15-55) 01/20/18 12:50 Unsaturated IBC 105 ug/dL (118-369) L 01/20/18 12:50 Ferritin 1230 ng/mL (15-150) H 01/20/18 12:50 Total Bilirubin 0.3 mg/dL (0.3-1.0) 01/20/18 12:30 Direct Bilirubin 0.07 mg/dL (0.0-0.2) 01/20/18 12:30 AST 32 U/L (13-39) 01/20/18 12:30 ALT 25 U/L (7-52) 01/20/18 12:30 Alkaline Phosphatase 73 U/L (34-104) 01/20/18 12:30 Troponin I 0.03 ng/mL (0.01-0.05) 01/20/18 12:15 C-Reactive Protein 4.3 mg/dL (0.0-0.9) H 01/20/18 12:50 B-Natriuretic Peptide 143.0 pg/mL (5.0-100.0) H 01/20/18 12:15 Total Protein gm/dL (6.0-8.3) 01/20/18 12:30 Albumin 3.0 gm/dL (3.7-5.3) L 01/20/18 12:30 Globulin 2.5 gm/dL 01/20/18 12:30 Albumin/Globulin Ratio 1.2 (1.0-1.8) 01/20/18 12:30 Triglycerides 97 mg/dL (<150) 01/20/18 12:15 Cholesterol 195 mg/dL (<200) 01/20/18 12:15 LDL Cholesterol Direct 152 mg/dL (75-193) 01/20/18 12:15 HDL Cholesterol 40 mg/dL (23-92) 01/20/18 12:15 Lipase 108 U/L (11-82) H 01/20/18 12:15 Free T4 1.12 ng/dL (0.82-1.77) 01/20/18 12:50 TSH 0.06 uIU/ml (0.34-5.60) L 01/20/18 12:15 Vancomycin Trough 6.7 ug/mL (10-20) L 01/22/18 08:20 - Physical Exam Vitals and I&O: Vital Signs Temp 96.4 F 01/24/18 11:59 Pulse 132 01/24/18 12:20 Resp 17 01/24/18 11:59 BP 157/66 01/24/18 11:59 Pulse Ox 98 01/24/18 11:59 Intake & Output 01/23/18 01/24/18 01/24/18 18:59 06:59 18:59 Intake Total 1100 100 Balance 1100 100 Weight (lbs) 93 lb 12.8 oz 93 lb 12.8 oz Intake: Intake, IV Amount 1100 100 D5-0.45NS 1,000 ml @ 50 1000 mls/hr IV .Q20H [facility] Rx#: [id number] Piperacillin Sodium/ 100 100 Tazobact 3.375 gm In Sodium Chloride 0.9% 50 ml @ 100 mls/hr IV Q6HR [facility] Rx#:[id number] Other: # Voids 3 Active Medications: Current Medications Acetaminophen (Tylenol) 650 mg PO Q4H PRN PRN Reason: MILD PAIN OR TEMP >100.4 Stop: 03/21/18 16:07 Al Hydrox/Mg Hydrox/Simethicone (Maalox) 30 ml PO Q6HR PRN PRN Reason: GI DISTRESS Stop: 03/21/18 16:28 Atorvastatin Calcium (Lipitor) 80 mg PO HS [facility] PRN Reason: Protocol Stop: 03/21/18 20:59 Last Admin: 01/23/18 20:26 Dose: Not Given Bisacodyl (Dulcolax 10 Mg Supp) 10 mg RC DAILY PRN PRN Reason: Constipation Stop: 03/21/18 16:07 Carvedilol (Coreg) 12.5 mg PO BID [facility] Stop: 03/21/18 16:59 Last Admin: 01/24/18 09:33 Dose: Not Given Dextrose (D50w) 50 ml IVP PRN PRN PRN Reason: HYPOGLYCEMIA Stop: 03/21/18 16:07 Diltiazem HCl (Cardizem) 60 mg PO Q6HR [facility] Stop: 03/21/18 17:59 Last Admin: 01/24/18 12:20 Dose: Not Given Enalaprilat (Vasotec) 2.5 mg IVP Q6HR PRN PRN Reason: SBP ABOVE 160 Stop: 03/25/18 11:59 Glucagon (Glucagen) 1 mg IVP PRN PRN PRN Reason: HYPOGLYCEMIA Stop: 03/21/18 16:25 Heparin Sodium (Porcine) (Heparin) 5,000 units SUBQ Q12HR [facility] Stop: 03/22/18 20:59 Last Admin: 01/24/18 09:24 Dose: 5,000 units Piperacillin Sod/Tazobactam (Sod 3.375 gm/ Sodium Chloride) 50 mls @ 100 mls/ hr IV Q6HR [facility] Stop: 03/21/18 17:59 Last Admin: 01/24/18 12:22 Dose: 100 mls/hr Dextrose/Sodium Chloride (D5-0.45ns) 1,000 mls @ 50 mls/hr IV .Q20H [facility] Stop: 03/21/18 16:09 Last Admin: 01/23/18 15:50 Dose: 50 mls/hr Insulin Aspart (Novolog Insulin Sliding Scale) 0 units SUBQ ACHS [facility] PRN Reason: Protocol Stop: 03/21/18 16:29 Last Admin: 01/24/18 12:20 Dose: Not Given Magnesium Hydroxide (Milk Of Magnesia) 30 ml PO DAILY PRN PRN Reason: IF NO BM IN TWO DAYS Stop: 03/21/18 16:07 Megestrol Acetate (Megace) 400 mg PO BID [facility] Stop: 03/21/18 16:59 Last Admin: 01/24/18 09:34 Dose: Not Given Metoprolol Tartrate (Lopressor) 5 mg IV Q4H PRN PRN Reason: Tachycardia Stop: 03/25/18 12:29 Miscellaneous (Zosyn Iv Per Pharmacy) 1 ea MC PRN PRN PRN Reason: PROTOCOL Stop: 03/21/18 16:07 Multivitamins/Vitamin C (Theragran) 1 tab PO DAILY [facility] Stop: 03/22/18 08:59 Last Admin: 01/24/18 09:34 Dose: Not Given Nystatin (Nystop) 100,000 units TP QSHIFT [facility] Stop: 03/21/18 19:59 Last Admin: 01/24/18 09:23 Dose: 100,000 units Ondansetron HCl (Zofran Odt) 4 mg PO Q6H PRN PRN Reason: Nausea / Vomiting Stop: 03/21/18 16:07 Prednisone (Deltasone) 10 mg PO DAILY [facility] Stop: 03/22/18 08:59 Last Admin: 01/24/18 09:34 Dose: Not Given Sodium Phosphate (Fleet Enema) 135 ml RC DAILY PRN PRN Reason: Constipation Stop: 03/21/18 16:07 Vitamin A (Vitamin A & D) 5 gm TP DAILY [facility] Stop: 03/22/18 08:59 Last Admin: 01/24/18 09:32 Dose: 5 gm General: weak, alert HEENT: NC/AT, PERRLA Neck: Supple Lungs: CTAB Cardiovascular: RRR, Normal S1, Normal S2, without murmur Abdomen: soft, non-tender, non-distended, positive bowel sound Internal Medicine Assmt/Plan - Assessment Assessment: Current Active Problems Problem Status Onset ELEVATED WBC, LUNG INFILTRATES Acute Leukocytosis Pneumonia Dementia - Plan Plan: Ivantibiotics as per ID inhalation treatments and supplemental oxygen follow up labs in am continue current orders Nutritional Asmnt/Malnutr-PDOC - Dietary Evaluation Malnutrition Findings (Please click <Entered> for more info): Nutritional Asmnt/Malnutrition Start: 01/21/18 16: 32 Text: Status: Complete Freq: Document 01/21/18 16:32 LCHENG (Rec: 01/21/18 16:48 HENG [email or web address]) Nutritional Asmnt/Malnutrition Patient General Information Nutritional Screening High Risk Consult Diagnosis left lung infiltrate Pertinent Medical Hx/Surgical Hx dementia, HTN, hyperlipidemia per ER notes, no H&P at this time Subjective Information Pt seen sleeping at time of visit, not able to wake up for lunch. 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 Current Diet Order/ Nutrition Support low cholesterol 300gm Pertinent Medications D5-0.45ns, novolog, megace, theragran, piperacillin, vit A &D Pertinent Labs 01/21 BUN 32, Glucose 180, POC 142-261 01/20 A1c 5.1, POC 127-165 Nutritional Hx/Data Height 5 ft 3 in Height (Calculated Centimeters) 160.0 Current Weight (lbs) 83 lb Weight (Calculated Kilograms) 37.6 Weight (Calculated Grams) 36294.2 [place] Body Weight 115 Body Mass Index (BMI) 14.7 Weight Status Underweight GI Symptoms GI Symptoms None Last BM none Difficult in: None Skin Integrity/Comment: reddened to vagina and coccyx Current %PO Poor (25-49%) Estimated Nutritional Goals Calories/Kcals/Kg 25-30 Kcals Calculated 9785-8777 Protein g/k Protein Calculated 52 Fluid: ml 1300-1560ml (1ml/kcal) Nutritional Problem 2. Problem Problem chewing difficulty Etiology weakness, sleepy Signs/Symptoms: pt need for mech soft diet 1. Problem Problem altered nutrition related lab values Etiology hyperglycemia Signs/Symptoms: Glucose 180, POC 127-261 Intervention/Recommendation Comments 1. Recommend Mech soft ground diet with Boost BID to increase nutrition intake. 2. Monitor PO intake, wt, labs and skin integrity 3. F/U as high risk in 2-3 days, 01/23-01/24 Expected Outcomes/Goals Expected Outcomes/Goals 1. PO intake to meet at least 75% of nutritional needs. 2. Wt stability, skin to remain intact, labs to approach WNL.
[2018-01-24] MEDS: D5-0.45NS 1,000 ML IV SCH ×2 (15:28→23:08)
[2018-01-24 15:42] LABS: pH 7.09 (7.35-7.45)
[2018-01-24 15:43] LABS: ALLEN TEST Positive
[2018-01-24] MEDS ORDERED: Midazolam 1mg/ml 2 ml vial IV ONE ×2 (16:00)
[2018-01-24] MEDS ORDERED: Norepinephrine 4 mg/4mL Vial IV ONE ×3 (16:16→23:11)
[2018-01-24 17:52] LABS: ALLEN TEST YES; pH 7.41 (7.35-7.45)
--- NOTE | 2018-01-24 17:54 | Infectious Disease Prog Note ---
Infectious Disease Subjective - Review of Systems Service Date: 01/24/18 Events since last encounter: Patient was hypoxic, altered, and ABG showed severe hypoxia. RADIO INSTALLER was called and intubation was ordered. WHile she was transferred to the ICU and intubated, she went into cardiac arrest. CODE BLUE was called and ACLS protocol was followed, she had survived, butremains uunresponsive. There was yellow thick secretion noted in the airways. CXR showed dense L lung opacities. Antibiotic griffith , she is receiving Zosyn. Subjective: No fever, intubated orally. on the ventilator support. Infectious Disease Objective - Results Result Diagrams: 01/23/18 06:00 01/23/18 06:00 Recent Labs: Laboratory Last Values WBC 20.9 Th/cmm (4.8-10.8) H* 01/23/18 06:00 RBC 3.33 Mil/cmm (3.80-5.20) L 01/23/18 06:00 Hgb 9.9 gm/dL (12-16) L 01/23/18 06:00 Hct 29.6 % (41.0-60) L 01/23/18 06:00 MCV 88.9 fl (81-100) 01/23/18 06:00 MCH 29.8 pg (27.0-31.0) 01/23/18 06:00 MCHC Differential 33.5 pg (28.0-36.0) 01/23/18 06:00 RDW 15.9 % (11.5-20.0) 01/23/18 06:00 Plt Count 287 Th/cmm (150-400) 01/23/18 06:00 MPV 7.5 fl 01/23/18 06:00 Neutrophils % 86.6 % (40.0-80.0) H 01/23/18 06:00 Band Neutrophils % 1 % (0-10) 01/20/18 12:15 Lymphocytes % 5.3 % (20.0-50.0) L 01/23/18 06:00 Monocytes % 7.6 % (2.0-10.0) 01/23/18 06:00 Eosinophils % 0.5 % (0.0-5.0) 01/23/18 06:00 Basophils % 0.0 % (0.0-2.0) 01/23/18 06:00 Neutrophils (Manual) 86 % (40-80) H 01/20/18 12:15 Lymphocytes 6 % (20-50) L 01/20/18 12:15 Monocytes 6 % (2-10) 01/20/18 12:15 Eosinophils 1 % (0-5) 01/20/18 12:15 Platelet Estimate ADEQUATE (NORMAL) 01/20/18 12:15 Specimen Source Arterial 01/24/18 15:24 Sample Site Right Radial 01/24/18 15:24 pH 7.09 (7.35-7.45) L* 01/24/18 15:24 pCO2 127.0 mmHg (35.0-45.0) H* 01/24/18 15:24 pO2 28.0 mmHg (80.0-100.0) L* 01/24/18 15:24 HCO3 27.0 mEq/L (20.0-26.0) H 01/24/18 15:24 Base Excess 4.8 mEq/L (-3.0-3.0) H 01/24/18 15:24 O2 Saturation 30.0 % (92.0-100.0) L 01/24/18 15:24 Bebo Test Positive 01/24/18 15:24 Vent Rate 14 01/24/18 15:24 Inspired O2 100 01/24/18 15:24 Tidal Volume NA 01/24/18 15:24 PEEP 9 01/24/18 15:24 Pressure (ins/psv/peep) 6 01/24/18 15:24 Critical Value LZHANG 01/24/18 15:24 Sodium 138 mEq/L (136-145) 01/23/18 06:00 Potassium 3.2 mEq/L (3.5-5.1) L 01/23/18 06:00 Chloride 103 mEq/L (98-107) 01/23/18 06:00 Carbon Dioxide 34.4 mEq/L (21.0-31.0) H 01/23/18 06:00 Anion Gap 3.8 (7.0-16.0) L 01/23/18 06:00 BUN 17 mg/dL (7-25) 01/23/18 06:00 Creatinine 0.8 mg/dL (0.6-1.2) 01/23/18 06:00 Est GFR ( Amer) TNP 01/23/18 06:00 Est GFR (Non-Af Amer) TNP 01/23/18 06:00 BUN/Creatinine Ratio 21.3 01/23/18 06:00 Glucose 120 mg/dL (70-105) H 01/23/18 06:00 POC Glucose 119 MG/DL (70 - 105) H 01/24/18 12:19 Hemoglobin A1c % 5.1 % (4.0-6.0) 01/20/18 12:15 Whole Bld Lactic Acid 1.31 mmol/L (0.60-1.99) 01/20/18 15:41 Calcium 8.4 mg/dL (8.6-10.3) L 01/23/18 06:00 Iron 54 ug/dL (27-139) 01/20/18 12:50 TIBC 159 ug/dL (250-450) L 01/20/18 12:50 Iron Saturation 34 % (15-55) 01/20/18 12:50 Unsaturated IBC 105 ug/dL (118-369) L 01/20/18 12:50 Ferritin 1230 ng/mL (15-150) H 01/20/18 12:50 Total Bilirubin 0.3 mg/dL (0.3-1.0) 01/20/18 12:30 Direct Bilirubin 0.07 mg/dL (0.0-0.2) 01/20/18 12:30 AST 32 U/L (13-39) 01/20/18 12:30 ALT 25 U/L (7-52) 01/20/18 12:30 Alkaline Phosphatase 73 U/L (34-104) 01/20/18 12:30 Troponin I 0.03 ng/mL (0.01-0.05) 01/20/18 12:15 C-Reactive Protein 4.3 mg/dL (0.0-0.9) H 01/20/18 12:50 B-Natriuretic Peptide 143.0 pg/mL (5.0-100.0) H 01/20/18 12:15 Total Protein gm/dL (6.0-8.3) 01/20/18 12:30 Albumin 3.0 gm/dL (3.7-5.3) L 01/20/18 12:30 Globulin 2.5 gm/dL 01/20/18 12:30 Albumin/Globulin Ratio 1.2 (1.0-1.8) 01/20/18 12:30 Triglycerides 97 mg/dL (<150) 01/20/18 12:15 Cholesterol 195 mg/dL (<200) 01/20/18 12:15 LDL Cholesterol Direct 152 mg/dL (75-193) 01/20/18 12:15 HDL Cholesterol 40 mg/dL (23-92) 01/20/18 12:15 Lipase 108 U/L (11-82) H 01/20/18 12:15 Free T4 1.12 ng/dL (0.82-1.77) 01/20/18 12:50 TSH 0.06 uIU/ml (0.34-5.60) L 01/20/18 12:15 Vancomycin Trough 6.7 ug/mL (10-20) L 01/22/18 08:20 - Physical Exam Vitals and I&O: Vital Signs Temp 96.4 F 01/24/18 11:59 Pulse 120 01/24/18 15:13 Resp 18 01/24/18 12:00 BP 168/79 01/24/18 15:13 Pulse Ox 98 01/24/18 11:59 Intake & Output 01/23/18 01/24/18 01/24/18 18:59 06:59 18:59 Intake Total 3399 115 4202 Balance 1898 543 6370 Weight (lbs) 42.547 kg 42.547 kg Intake: Intake, IV Amount 8661 520 7952 D5-0.45NS 1,000 ml @ 50 1000 1000 mls/hr IV .Q20H [facility] Rx#: [id number] Piperacillin Sodium/ 100 100 50 Tazobact 3.375 gm In Sodium Chloride 0.9% 50 ml @ 100 mls/hr IV Q6HR [facility] Rx#:[id number] Other: # Voids 3 Active Medications: Current Medications Acetaminophen (Tylenol) 650 mg PO Q4H PRN PRN Reason: MILD PAIN OR TEMP >100.4 Stop: 03/21/18 16:07 Al Hydrox/Mg Hydrox/Simethicone (Maalox) 30 ml PO Q6HR PRN PRN Reason: GI DISTRESS Stop: 03/21/18 16:28 Atorvastatin Calcium (Lipitor) 80 mg PO HS [facility] PRN Reason: Protocol Stop: 03/21/18 20:59 Last Admin: 01/23/18 20:26 Dose: Not Given Atropine Sulfate (Atropine) 1 mg IVP PRN PRN PRN Reason: BP MAINTENANCE (PER PROTOCOL) Bisacodyl (Dulcolax 10 Mg Supp) 10 mg RC DAILY PRN PRN Reason: Constipation Stop: 03/21/18 16:07 Carvedilol (Coreg) 12.5 mg PO BID [facility] Stop: 03/21/18 16:59 Last Admin: 01/24/18 09:33 Dose: Not Given Dextrose (D50w) 50 ml IVP PRN PRN PRN Reason: HYPOGLYCEMIA Stop: 03/21/18 16:07 Diltiazem HCl (Cardizem) 60 mg PO Q6HR [facility] Stop: 03/21/18 17:59 Last Admin: 01/24/18 12:20 Dose: Not Given Enalaprilat (Vasotec) 2.5 mg IVP Q6HR PRN PRN Reason: SBP ABOVE 160 Stop: 03/25/18 11:59 Last Admin: 01/24/18 15:13 Dose: 2.5 mg Glucagon (Glucagen) 1 mg IVP PRN PRN PRN Reason: HYPOGLYCEMIA Stop: 03/21/18 16:25 Heparin Sodium (Porcine) (Heparin) 5,000 units SUBQ Q12HR [facility] Stop: 03/22/18 20:59 Last Admin: 01/24/18 09:24 Dose: 5,000 units Piperacillin Sod/Tazobactam (Sod 3.375 gm/ Sodium Chloride) 50 mls @ 100 mls/ hr IV Q6HR [facility] Stop: 03/21/18 17:59 Last Infusion: 01/24/18 15:14 Dose: Infused Dextrose/Sodium Chloride (D5-0.45ns) 1,000 mls @ 50 mls/hr IV .Q20H [facility] Stop: 03/21/18 16:09 Last Admin: 01/24/18 15:28 Dose: 50 mls/hr Norepinephrine Bitartrate 4 mg (/ Dextrose) 254 mls @ 15.24 mls/hr IV TITR PRN ; Protocol; 4 MCG/MIN PRN Reason: BP MAINTENANCE (PER PROTOCOL) Stop: 03/25/18 16:14 Insulin Aspart (Novolog Insulin Sliding Scale) 0 units SUBQ ACHS [facility] PRN Reason: Protocol Stop: 03/21/18 16:29 Last Admin: 01/24/18 12:20 Dose: Not Given Magnesium Hydroxide (Milk Of Magnesia) 30 ml PO DAILY PRN PRN Reason: IF NO BM IN TWO DAYS Stop: 03/21/18 16:07 Megestrol Acetate (Megace) 400 mg PO BID [facility] Stop: 03/21/18 16:59 Last Admin: 01/24/18 09:34 Dose: Not Given Metoprolol Tartrate (Lopressor) 5 mg IV Q4H PRN PRN Reason: Tachycardia Stop: 03/25/18 12:29 Miscellaneous (Zosyn Iv Per Pharmacy) 1 ea MC PRN PRN PRN Reason: PROTOCOL Stop: 03/21/18 16:07 Multivitamins/Vitamin C (Theragran) 1 tab PO DAILY [facility] Stop: 03/22/18 08:59 Last Admin: 01/24/18 09:34 Dose: Not Given Nystatin (Nystop) 100,000 units TP QSHIFT [facility] Stop: 03/21/18 19:59 Last Admin: 01/24/18 09:23 Dose: 100,000 units Ondansetron HCl (Zofran Odt) 4 mg PO Q6H PRN PRN Reason: Nausea / Vomiting Stop: 03/21/18 16:07 Prednisone (Deltasone) 10 mg PO DAILY [facility] Stop: 03/22/18 08:59 Last Admin: 01/24/18 09:34 Dose: Not Given Sodium Phosphate (Fleet Enema) 135 ml RC DAILY PRN PRN Reason: Constipation Stop: 03/21/18 16:07 Vitamin A (Vitamin A & D) 5 gm TP DAILY [facility] Stop: 03/22/18 08:59 Last Admin: 01/24/18 09:32 Dose: 5 gm General: no acute distress, well developed, well nourished HEENT: atraumatic, normocephalic, PERRLA, EOMI Neck: supple, no thyromegaly Cardiovascular: S1S2, regular Lungs: clear to percussion, rhonchi Abdomen: soft, no tender, no distended Extremities: no cyanosis, no clubbing, no edema Neurological: other (unresponsive.) Skin: intact Infectious Disease Assmt/Plan - Problem List Patient Problems: All Active Problems ELEVATED WBC, LUNG INFILTRATES (Acute) - Assessment Assessment: 1. Leukocytosis. suspect sepsis. 2. Pneumonia. L lung. 3. Dementia 4. S/p CP arrest. 5. Anoxic encephalopathy. 6. VDRF. - Plan Plan: Change antibiotics to vanco IV and meropenem. sepsis w/u. Nutritional Asmnt/Malnutr-PDOC - Dietary Evaluation Malnutrition Findings (Please click <Entered> for more info): Nutritional Asmnt/Malnutrition Start: 01/21/18 16: 32 Text: Status: Complete Freq: Document 01/21/18 16:32 HEN (Rec: 01/21/18 16:48 LCHENG [email or web address]) Nutritional Asmnt/Malnutrition Patient General Information Nutritional Screening High Risk Consult Diagnosis left lung infiltrate Pertinent Medical Hx/Surgical Hx dementia, HTN, hyperlipidemia per ER notes, no H&P at this time Subjective Information Pt seen sleeping at time of visit, not able to wake up for lunch. 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 Current Diet Order/ Nutrition Support low cholesterol 300gm Pertinent Medications D5-0.45ns, novolog, megace, theragran, piperacillin, vit A &D Pertinent Labs 01/21 BUN 32, Glucose 180, POC 142-261 01/20 A1c 5.1, POC 127-165 Nutritional Hx/Data Height 1.6 m Height (Calculated Centimeters) 160.0 Current Weight (lbs) 37.648 kg Weight (Calculated Kilograms) 37.6 Weight (Calculated Grams) [address] [place] Body Weight 115 Body Mass Index (BMI) 14.7 Weight Status Underweight GI Symptoms GI Symptoms None Last BM none Difficult in: None Skin Integrity/Comment: reddened to vagina and coccyx Current %PO Poor (25-49%) Estimated Nutritional Goals Calories/Kcals/Kg 25-30 Kcals Calculated 0572-3135 Protein g/k Protein Calculated 52 Fluid: ml 1300-1560ml (1ml/kcal) Nutritional Problem 2. Problem Problem chewing difficulty Etiology weakness, sleepy Signs/Symptoms: pt need for mech soft diet 1. Problem Problem altered nutrition related lab values Etiology hyperglycemia Signs/Symptoms: Glucose 180, POC 127-261 Intervention/Recommendation Comments 1. Recommend Mech soft ground diet with Boost BID to increase nutrition intake. 2. Monitor PO intake, wt, labs and skin integrity 3. F/U as high risk in 2-3 days, 01/23-01/24 Expected Outcomes/Goals Expected Outcomes/Goals 1. PO intake to meet at least 75% of nutritional needs. 2. Wt stability, skin to remain intact, labs to approach WNL.
--- NOTE | 2018-01-24 20:57 | Consultation ---
DATE OF CONSULTATION: 01/23/[address] Casanova. HISTORY AND PHYSICAL: This is an 82-year-old female patient, who was transferred to ICU with hypotension, supraventricular tachycardia and respiratory failure. Cardiac consult requested as the patient is on Levophed. PAST MEDICAL HISTORY: Paroxysmal atrial fibrillation, dementia, bilateral pneumonia and osteoporosis. FAMILY HISTORY: Unremarkable. SOCIAL HISTORY: No history of smoking, alcohol abuse. ALLERGIES: No known allergies. PHYSICAL EXAMINATION: VITAL SIGNS: Blood pressure 90 systolic on Levophed and Nilton-Synephrine, pulse 98, respirations 28. HEAD: Normocephalic. No lumps or bumps. EYES: Pupils equal, reactive to light. Fundi show AV nicking, sclerae white, conjunctivae pink. NECK: Carotid 2+. Normal upstroke. JVD flat. Thyroid not palpable. Lymph nodes not palpable. CHEST: Shows increased AP diameter. No kyphosis, scoliosis. LUNGS: Bilateral wheezing, rhonchi, prolonged expiration. HEART: PMI fifth intercostal space with lateral to midclavicular line. S1 irregular S3, S4. ABDOMEN: Soft. Liver, spleen not palpable. No organomegaly. Bowel sounds active. NEUROLOGIC: Unremarkable. EXTREMITIES: Peripheral pulses 2+. No pedal edema. CLINICAL IMPRESSION: Hypotension, septic shock, respiratory failure, bilateral pneumonia, osteoporosis, paroxysmal atrial fibrillation. PLAN: The patient to continue on Levophed, Nilton-Synephrine, IV antibiotics and monitor the patient for any arrhythmias. JOB# [id number]
[2018-01-25] MEDS: Diltiazem 30 mg Tab PO SCH ×4 (01:31→17:00)
[2018-01-25 05:09] LABS: MANUAL DIFF REQUIRED? YES
[2018-01-25 05:13] LABS: HEMATOCRIT 26.1 % (41.0-60); HEMOGLOBIN 8.8 gm/dL (12-16); MEAN CELL VOLUME 89.6 fl (81-100); MEAN CORPUSCULAR HEMOGLOBIN 30.3 pg (27.0-31.0); MEAN CORPUSCULAR HGB CONC 33.8 pg (28.0-36.0); MEAN PLATELET VOLUME 7.7 fl; PLATELET COUNT 214 Th/cmm (150-400); RED BLOOD COUNT 2.92 Mil/cmm (3.80-5.20); RED CELL DISTRIBUTION WIDTH 16.5 % (11.5-20.0)
[2018-01-25 05:17] LABS: ANION GAP 14.6 (7.0-16.0); BUN - UREA NITROGEN 24 mg/dL (7-25); CALCIUM SERUM 7.7 mg/dL (8.6-10.3); CARBON DIOXIDE 20.2 mEq/L (21.0-31.0); CHLORIDE 108 mEq/L (98-107); CREATININE - SERUM 0.9 mg/dL (0.6-1.2); GLUCOSE 193 mg/dL (70-105); SODIUM SERUM 140 mEq/L (136-145)
[2018-01-25 05:20] LABS: WHITE BLOOD COUNT 38.7 Th/cmm (4.8-10.8)
[2018-01-25 05:27] LABS: POTASSIUM SERUM 2.8 mEq/L (3.5-5.1)
[2018-01-25] MEDS ORDERED: Sodium Chloride 0.9% 1,000 ML IV ONE ×2 (05:34→06:36)
[2018-01-25 06:12] LABS: BAND NEUTROPHILE 11 % (0-10); LYMPHOCYTE 10 % (20-50); MONOCYTE 1 % (2-10); NEUTROPHILS 78 % (40-80); TOTAL CELLS COUNTED 100
[2018-01-25] MEDS: INSULIN ASPART SLIDING SCALE 100 UNITS/ML UNIT SUBQ SCH ×3 (06:38→19:04)
[2018-01-25] MEDS: KCL 20mEq/100mL Premix 20 MEQ/100 ML PIGGYBACK IV SCH ×3 (07:04→12:37)
--- NOTE | 2018-01-25 07:44 | Diagnostic Imaging Report ---
Exam: Portable chest x-ray. HISTORY: Status post code. Findings: Portable examination of the chest at 1725 hours reviewed compared to prior study of 01/24/2018. The study demonstrates endotracheal tube 1 cm above the andrew. Mediastinal structures midline bony thorax intact. The aortic arch calcified. The left costophrenic angles not visualized in the study. COPD changes are noted. No acute pulmonic infiltrates are noted. There is evidence of for subcutaneous soft tissue emphysema predominantly in the left lower neck area. IMPRESSION: COPD changes no acute disease. Subcutaneous soft tissue edema Endotracheal tube 1 cm above the andrew.
--- NOTE | 2018-01-25 07:47 | Diagnostic Imaging Report ---
Exam: Portable chest x-ray HISTORY: Status post code. Findings: Portable examination of the chest x-ray 1619 hours reviewed. The study demonstrates endotracheal tube 2 cm above the andrew. There is evidence for pneumomediastinum. There is evidence for left-sided infiltrate and effusion. Subcutaneous soft tissues dizziness noted in the right lower neck area. Diffuse osteopenia is noted. COPD changes appreciated throughout the right lung parenchyma. The stomach distended with air. Follow-up examination recommended. Side-port IMPRESSION: 1. Endotracheal tube 2 cm above the andrew, pneumomediastinum. 2. Left-sided pneumonia and effusion. 3. COPD changes 4. Distended air stomach. 5. Subcutaneous dorsal soft tissues is edema right lower neck area
[2018-01-25] MEDS ORDERED: Atropine Sulfate 1 mg/mL 1 mL Vial IVP PRN (07:49)
--- NOTE | 2018-01-25 09:50 | Diagnostic Imaging Report ---
Portable chest x-ray HISTORY: Cough Compared with prior exam of January 24, 2018, there are persistent diffuse bilateral infiltrates. Findings may be associated with chronic change. Previously noted subcutaneous air in the lower neck has resolved. Endotracheal tube tip is approximately 3.0 cm above the andrew. A nasogastric tube extends into the stomach. IMPRESSION: 1. No significant change in bilateral pulmonary infiltrates. Findings may be associated with a chronic component. Pneumonia cannot be excluded. Clinical correlation is needed. 2. Resolution in previously noted subcutaneous air within the lower neck area
[2018-01-25] MEDS: Multivitamin Tab PO SCH (10:03)
[2018-01-25] MEDS: NYSTATIN 100000 UNITS/GM POWD TP SCH ×3 (12:45→21:30)
[2018-01-25] MEDS: Vitamin A/Vitamin D 5 gm Packet TP SCH (12:49)
[2018-01-25] MEDS: Meropenem 1 GM in Sodium Chloride 0.9% 100 ML IV SCH ×2 (15:02→21:30)
--- NOTE | 2018-01-25 17:53 | Consultation ---
DATE OF CONSULTATION: 01/25/2018 UROLOGY CONSULTATION REASON FOR CONSULTATION: Seen for placement of Regalado catheter. HISTORY OF PRESENT ILLNESS: An 82-year-old female in the ICU for hypotension and tachycardia, respiratory failure. Regalado catheter was needed to monitor the output and to help with the stage I to stage II bedsore in the sacral area. The patient was incontinent. She was also admitted with a white count of 20,000 and infiltrates in lungs, which are supposedly chronic in nature. MEDICAL HISTORY: Significant for dementia and chronic lung disease. The patient came in with congestion and coughing and hypotension, requiring Levophed and Nilton-Synephrine. ALLERGIES: Plastic tape. CURRENT MEDICATIONS: Simethicone, Lipitor, Coreg, diltiazem, Vasotec, insulin on sliding scale, Megace, meropenem, metoprolol, vancomycin, norepinephrine drip, phenylephrine drip, prednisone. REVIEW OF SYSTEMS: The patient is on the ventilator and NG tube not yet on feeding. No noted seizures, chest pain, vomiting, or diarrhea. Skin rashes in the form of stage I to stage II sacral decubitus. She is not responsive, considered to be comatose. PHYSICAL EXAMINATION: VITAL SIGNS: On vasopressors. Last temperature recorded today is 96.6, heart rate 70, and blood pressure 170/74. HEAD AND NECK: Normocephalic. Trachea central. No jaundice. Thyroid and lymph nodes not palpable. Carotid bruit absent. NG tube present. The patient intubated. NECK: Supple. No masses. CHEST: Coarse breath sounds, occasional rhonchi, basilar rales. HEART: Sounds normal in sinus rhythm, no murmur. ABDOMEN: Soft, nontender, no organomegaly, mass, or hernia. GENITALIA: Normal female with mucosal prolapse at the meatus making it difficult to identify the opening of the urethra and hence difficulty putting the catheter. The labia swollen with edema. EXTREMITIES: No edema or lymphadenopathy. NEUROLOGIC: Nonfocal; however, difficult to test or movements that she is comatose. LABORATORY DATA: White count 38.7, not improving and progressively getting worse with hemoglobin of 8.8 and 11 bands. Platelet counts are adequate. Potassium is only 2.8, BUN 24, creatinine 0.9, glucose numbers 186, then 66, and then 163, and last one 193 this morning. Chest x-ray today shows no significant change in the bilateral pulmonary infiltrates, which may be chronic and pneumonia cannot be ruled out. IMPRESSION: 1. Urinary incontinence, decubitus, need for fluid and output monitoring. Therefore, Regalado catheter was placed. 2. Respiratory failure and chronic lung disease with superimposed acute disease, not very well documented. 3. Leukocytosis, septicemia, hypotension, and vasopressor need, ventilator dependency, history of dementia. [facility]# [id number]
--- NOTE | 2018-01-25 21:19 | Cardiology ---
01/25/[address] Casanova M-MODE ECHOCARDIOGRAM: Mitral valve: Anterior leaflet of mitral valve shows normal excursion, EF velocity. Posterior leaflet of the mitral valve shows normal excursion. Left ventricular posterior shows increased thickness, normal excursion. Interventricular septum shows increased thickness, normal excursion hypertrophy of the left ventricle, ejection fraction 55%. Left atrium normal. Aortic root shows normal dimension, normal excursion of aortic leaflets. CONCLUSION: Hypertrophy of the left ventricle, ejection fraction 55%. 2D ECHO: Long axis view show normal size left ventricle with hypertrophy of the left ventricle. Left atrium normal. Aortic root shows normal dimension, normal excursion of aortic leaflets. Short axis view of mitral valve normal. Short axis view of aortic valve normal. Apical four chamber view showed normal sized left ventricle with hypertrophy of the left ventricle. Left atrium normal. Right ventricular cavity, right atrium normal. No pericardial effusion. CONCLUSION: Hypertrophy of the left ventricle, ejection fraction 55%. Doppler study shows moderate to severe tricuspid regurgitation, right ventricular systolic pressure of 57 mmHg with moderate pulmonary hypertension. CONCLUSION: Hypertrophy of the left ventricle, ejection fraction 55%, moderate pulmonary hypertension, moderate to severe tricuspid regurgitation. JOB# [id number]
[2018-01-26] MEDS: INSULIN ASPART SLIDING SCALE 100 UNITS/ML UNIT SUBQ SCH ×5 (00:30→23:32)
[2018-01-26 05:24] LABS: EOSINOPHILE ABSOLUTE 0.1 Th/cmm (0.1-0.4); HEMOGLOBIN 8.7 gm/dL (12-16); LYMPHOCYTE ABSOLUTE 1.2 Th/cmm (1.5-3.0); MANUAL DIFF REQUIRED? YES; MEAN CELL VOLUME 88.7 fl (81-100); MEAN CORPUSCULAR HEMOGLOBIN 29.5 pg (27.0-31.0); MEAN CORPUSCULAR HGB CONC 33.3 pg (28.0-36.0); MEAN PLATELET VOLUME 7.8 fl; MONOCYTE ABSOLUTE 1.2 Th/cmm (0.3-1.0); NEUTROPHILE ABSOLUTE 23.7 Th/cmm (1.8-8.0); PLATELET COUNT 191 Th/cmm (150-400); RED BLOOD COUNT 2.93 Mil/cmm (3.80-5.20); RED CELL DISTRIBUTION WIDTH 17.1 % (11.5-20.0)
[2018-01-26 05:35] LABS: ANION GAP 11.7 (7.0-16.0); BUN - UREA NITROGEN 25 mg/dL (7-25); CALCIUM SERUM 7.1 mg/dL (8.6-10.3); CARBON DIOXIDE 15.9 mEq/L (21.0-31.0); CHLORIDE 111 mEq/L (98-107); CREATININE - SERUM 1.3 mg/dL (0.6-1.2); GLUCOSE 132 mg/dL (70-105); POTASSIUM SERUM 3.6 mEq/L (3.5-5.1); SODIUM SERUM 135 mEq/L (136-145)
[2018-01-26 05:38] LABS: WHITE BLOOD COUNT 26.2 Th/cmm (4.8-10.8)
[2018-01-26] MEDS: Diltiazem 30 mg Tab PO SCH ×4 (06:00→23:34)
[2018-01-26] MEDS: D5-0.45NS 1,000 ML IV SCH (06:01)
[2018-01-26] MEDS: Chlorhexidine Gluconate 0.12% 15mL Mouthwash MM SCH ×3 (06:03→20:27)
[2018-01-26 07:38] LABS: BAND NEUTROPHILE 9 % (0-10); LYMPHOCYTE 8 % (20-50); MONOCYTE 3 % (2-10); NEUTROPHILS 80 % (40-80); PLATELET ESTIMATE ADEQUATE (NORMAL); TOTAL CELLS COUNTED 100
[2018-01-26] MEDS: NYSTATIN 100000 UNITS/GM POWD TP SCH ×2 (09:00→20:18)
[2018-01-26] MEDS: Multivitamin Tab PO SCH (09:48)
[2018-01-26] MEDS: Meropenem 1 GM in Sodium Chloride 0.9% 100 ML IV SCH ×2 (09:53→20:19)
[2018-01-26] MEDS: Vitamin A/Vitamin D 5 gm Packet TP SCH (10:12)
[2018-01-26] MEDS: Polyvinyl Alcohol Ophth Soln 15 mL Bottle EACH EYE PRN (10:13)
--- NOTE | 2018-01-26 13:35 | Progress Notes ---
DATE: 01/26/2018 SUBJECTIVE: The patient was seen in Intensive Care Unit. The patient is currently orally intubated with ongoing Levophed drip. The patient currently appears in no acute distress. OBJECTIVE: VITAL SIGNS: Blood pressure 131/54, heart rate of 68, 100% saturation via ventilator. Temperature 97.2. HEENT: Head is atraumatic and normocephalic. Eyes: Bilateral pupils are sluggish. NECK: Supple. Positive JVD. CARDIOVASCULAR: S1 and S2, without murmur sinus rhythm on the monitor. GASTROINTESTINAL: Soft and nontender without guarding. Positive bowel sounds. GENITOURINARY: The patient has a nasogastric tube in place. MUSCULOSKELETAL: No clubbing. No cyanosis noted. Positive edema on upper extremities. ASSESSMENT: 1. Acute respiratory failure, orally intubated, currently dependent on ventilator. 2. Pneumonia. 3. Dementia. 4. Dysphagia. PLAN: We will keep the patient in Intensive Care Unit. We will try to wean off Levophed drip and also try to wean off from ventilator as tolerated. We will put the patient on aspiration precaution. We will continue to provide pulmonary support and we will continue current antibiotics. Treatment plans were discussed with the patient's nurse. Treatment plans were discussed with Dr. Casanova. JOB# [id number]
[2018-01-27 05:14] LABS: EOSINOPHILE ABSOLUTE 0.2 Th/cmm (0.1-0.4); HEMATOCRIT 24.6 % (41.0-60); HEMOGLOBIN 8.5 gm/dL (12-16); LYMPHOCYTE ABSOLUTE 1.9 Th/cmm (1.5-3.0); MANUAL DIFF REQUIRED? YES; MEAN CELL VOLUME 85.9 fl (81-100); MEAN CORPUSCULAR HEMOGLOBIN 29.6 pg (27.0-31.0); MEAN CORPUSCULAR HGB CONC 34.5 pg (28.0-36.0); MEAN PLATELET VOLUME 8.5 fl; MONOCYTE ABSOLUTE 1.4 Th/cmm (0.3-1.0); NEUTROPHILE ABSOLUTE 26.2 Th/cmm (1.8-8.0); PLATELET COUNT 209 Th/cmm (150-400); RED BLOOD COUNT 2.86 Mil/cmm (3.80-5.20); RED CELL DISTRIBUTION WIDTH 16.5 % (11.5-20.0)
[2018-01-27 05:17] LABS: WHITE BLOOD COUNT 29.7 Th/cmm (4.8-10.8)
[2018-01-27 05:52] LABS: TOTAL CELLS COUNTED 100
[2018-01-27 05:53] LABS: BAND NEUTROPHILE 11 % (0-10); BASOPHIL 0 % (0-3); EOSINOPHIL 0 % (0-5); LYMPHOCYTE 4 % (20-50); MONOCYTE 5 % (2-10); NEUTROPHILS 80 % (40-80); PLATELET ESTIMATE ADEQUATE (NORMAL); PLATELET MORPHOLOGY NORMAL (NORMAL)
[2018-01-27] MEDS: Diltiazem 30 mg Tab PO SCH ×4 (06:06→23:43)
[2018-01-27] MEDS: INSULIN ASPART SLIDING SCALE 100 UNITS/ML UNIT SUBQ SCH ×4 (06:13→23:57)
--- NOTE | 2018-01-27 09:08 | General Progress Note ---
Subjective - Review of Systems Events since last encounter: patient intubated with no signs of pain Objective - Results Result Diagrams: 01/27/18 04:58 01/26/18 05:20 Recent Labs: Laboratory Last Values WBC 29.7 Th/cmm (4.8-10.8) H* 01/27/18 04:58 RBC 2.86 Mil/cmm (3.80-5.20) L 01/27/18 04:58 Hgb 8.5 gm/dL (12-16) L 01/27/18 04:58 Hct 24.6 % (41.0-60) L 01/27/18 04:58 MCV 85.9 fl (81-100) 01/27/18 04:58 MCH 29.6 pg (27.0-31.0) 01/27/18 04:58 MCHC Differential 34.5 pg (28.0-36.0) 01/27/18 04:58 RDW 16.5 % (11.5-20.0) 01/27/18 04:58 Plt Count 209 Th/cmm (150-400) 01/27/18 04:58 MPV 8.5 fl 01/27/18 04:58 Neutrophils % 86.6 % (40.0-80.0) H 01/23/18 06:00 Band Neutrophils % 11 % (0-10) H 01/27/18 04:58 Lymphocytes % 5.3 % (20.0-50.0) L 01/23/18 06:00 Monocytes % 7.6 % (2.0-10.0) 01/23/18 06:00 Eosinophils % 0.5 % (0.0-5.0) 01/23/18 06:00 Basophils % 0.0 % (0.0-2.0) 01/23/18 06:00 Neutrophils (Manual) 80 % (40-80) 01/27/18 04:58 Lymphocytes 4 % (20-50) L 01/27/18 04:58 Monocytes 5 % (2-10) 01/27/18 04:58 Eosinophils 0 % (0-5) 01/27/18 04:58 Basophils 0 % (0-3) 01/27/18 04:58 Platelet Estimate ADEQUATE (NORMAL) 01/27/18 04:58 Platelet Morphology NORMAL (NORMAL) 01/27/18 04:58 RBC Morph Micro Appear NORMAL (NORMAL) 01/27/18 04:58 Specimen Source Arterial 01/24/18 17:45 Sample Site Left Radial 01/24/18 17:45 pH 7.41 (7.35-7.45) 01/24/18 17:45 pCO2 32.0 mmHg (35.0-45.0) L 01/24/18 17:45 pO2 397.0 mmHg (80.0-100.0) H 01/24/18 17:45 HCO3 22.3 mEq/L (20.0-26.0) 01/24/18 17:45 Base Excess -3.5 mEq/L (-3.0-3.0) L 01/24/18 17:45 O2 Saturation 100.0 % (92.0-100.0) 01/24/18 17:45 Bebo Test YES 01/24/18 17:45 Vent Rate 14 01/24/18 17:45 Inspired O2 100 01/24/18 17:45 Tidal Volume 450 01/24/18 17:45 PEEP 5 01/24/18 17:45 Pressure (ins/psv/peep) NA 01/24/18 17:45 Critical Value E.BRIDGES 01/24/18 17:45 Sodium 135 mEq/L (136-145) L 01/26/18 05:20 Potassium 3.6 mEq/L (3.5-5.1) 01/26/18 05:20 Chloride 111 mEq/L (98-107) H 01/26/18 05:20 Carbon Dioxide 15.9 mEq/L (21.0-31.0) L 01/26/18 05:20 Anion Gap 11.7 (7.0-16.0) 01/26/18 05:20 BUN 25 mg/dL (7-25) 01/26/18 05:20 Creatinine 1.3 mg/dL (0.6-1.2) H 01/26/18 05:20 Est GFR ( Amer) TNP 01/26/18 05:20 Est GFR (Non-Af Amer) TNP 01/26/18 05:20 BUN/Creatinine Ratio 19.2 01/26/18 05:20 Glucose 132 mg/dL (70-105) H 01/26/18 05:20 POC Glucose 114 MG/DL (70 - 105) H 01/27/18 06:00 Hemoglobin A1c % 5.1 % (4.0-6.0) 01/20/18 12:15 Whole Bld Lactic Acid 4.20 mmol/L (0.60-1.99) H* 01/24/18 21:33 Calcium 7.1 mg/dL (8.6-10.3) L 01/26/18 05:20 Iron 54 ug/dL (27-139) 01/20/18 12:50 TIBC 159 ug/dL (250-450) L 01/20/18 12:50 Iron Saturation 34 % (15-55) 01/20/18 12:50 Unsaturated IBC 105 ug/dL (118-369) L 01/20/18 12:50 Ferritin 1230 ng/mL (15-150) H 01/20/18 12:50 Total Bilirubin 0.3 mg/dL (0.3-1.0) 01/20/18 12:30 Direct Bilirubin 0.07 mg/dL (0.0-0.2) 01/20/18 12:30 AST 32 U/L (13-39) 01/20/18 12:30 ALT 25 U/L (7-52) 01/20/18 12:30 Alkaline Phosphatase 73 U/L (34-104) 01/20/18 12:30 Troponin I 0.03 ng/mL (0.01-0.05) 01/20/18 12:15 C-Reactive Protein 4.3 mg/dL (0.0-0.9) H 01/20/18 12:50 B-Natriuretic Peptide 185.0 pg/mL (5.0-100.0) H 01/25/18 04:20 Total Protein gm/dL (6.0-8.3) 01/20/18 12:30 Albumin 3.0 gm/dL (3.7-5.3) L 01/20/18 12:30 Globulin 2.5 gm/dL 01/20/18 12:30 Albumin/Globulin Ratio 1.2 (1.0-1.8) 01/20/18 12:30 Triglycerides 97 mg/dL (<150) 01/20/18 12:15 Cholesterol 195 mg/dL (<200) 01/20/18 12:15 LDL Cholesterol Direct 152 mg/dL (75-193) 01/20/18 12:15 HDL Cholesterol 40 mg/dL (23-92) 01/20/18 12:15 Lipase 108 U/L (11-82) H 01/20/18 12:15 Free T4 1.12 ng/dL (0.82-1.77) 01/20/18 12:50 TSH 0.06 uIU/ml (0.34-5.60) L 01/20/18 12:15 Vancomycin Trough 27.8 ug/mL (10-20) H 01/26/18 23:00 - Physical Exam Vitals and I&O: Vital Signs Temp 97.7 F 01/27/18 03:00 Pulse 59 01/27/18 07:14 Resp 14 01/27/18 06:00 BP 154/66 01/27/18 06:00 Pulse Ox 100 01/27/18 08:00 Intake & Output 01/26/18 01/27/18 01/27/18 18:59 06:59 18:59 Intake Total 954 457.734 Output Total 150 100 Balance 804 357.734 Weight (lbs) 42.638 kg 42.638 kg Intake: Intake, IV Amount 604 257.734 Meropenem 1 gm In Sodium 100 100 Chloride 0.9% 100 ml @ 100 mls/hr IV Q12H [facility] Rx #:[id number] Norepinephrine 4 mg In 254 157.734 Sodium Chloride 0.9% 250 ml @ 4 MCG/MIN 15.24 mls/ hr IV TITR [facility] Rx#: [id number] Vancomycin HCl 0.75 gm In 250 Sodium Chloride 0.9% 250 ml @ 250 mls/hr IV Q18H [facility] Rx#:[id number] Other 350 200 Output: Urine 150 100 Other: # Bowel Movements 3 Stool Characteristics Liquid Liquid Black Green Active Medications: Current Medications Acetaminophen (Tylenol) 650 mg PO Q4H PRN PRN Reason: MILD PAIN OR TEMP >100.4 Stop: 03/21/18 16:07 Al Hydrox/Mg Hydrox/Simethicone (Maalox) 30 ml PO Q6HR PRN PRN Reason: GI DISTRESS Stop: 03/21/18 16:28 Artificial Tears (Artificial Tears Ophth Soln) 1 drop EACH EYE Q2HR PRN PRN Reason: Dry Eye Stop: 03/27/18 09:28 Last Admin: 01/26/18 10:13 Dose: 1 drop Atorvastatin Calcium (Lipitor) 80 mg PO HS [facility] PRN Reason: Protocol Stop: 03/21/18 20:59 Last Admin: 01/26/18 20:19 Dose: 80 mg Bisacodyl (Dulcolax 10 Mg Supp) 10 mg RC DAILY PRN PRN Reason: Constipation Stop: 03/21/18 16:07 Carvedilol (Coreg) 12.5 mg PO BID [facility] Stop: 03/21/18 16:59 Last Admin: 01/26/18 18:44 Dose: 12.5 mg Chlorhexidine Gluconate (Peridex) 15 ml MM 0800,2000 [facility] Stop: 03/27/18 07:59 Last Admin: 01/26/18 20:27 Dose: 15 ml Dextrose (D50w) 50 ml IVP PRN PRN PRN Reason: HYPOGLYCEMIA Stop: 03/21/18 16:07 Diltiazem HCl (Cardizem) 60 mg PO Q6HR [facility] Stop: 03/21/18 17:59 Last Admin: 01/27/18 06:06 Dose: Not Given Enalaprilat (Vasotec) 2.5 mg IVP Q6HR PRN PRN Reason: SBP ABOVE 160 Stop: 03/25/18 11:59 Last Admin: 01/24/18 15:13 Dose: 2.5 mg Glucagon (Glucagen) 1 mg IVP PRN PRN PRN Reason: HYPOGLYCEMIA Stop: 03/21/18 16:25 Heparin Sodium (Porcine) (Heparin) 5,000 units SUBQ Q12HR [facility] Stop: 03/22/18 20:59 Last Admin: 01/26/18 20:19 Dose: 5,000 units Meropenem 1 gm/ Sodium (Chloride) 100 mls @ 100 mls/hr IV Q12H [facility] Stop: 03/26/18 08:59 Last Infusion: 01/26/18 21:25 Dose: Infused Phenylephrine HCl 10 mg/ (Sodium Chloride) 250 mls @ 75 mls/hr IV TITR [facility]; 50 MCG/MIN PRN Reason: Protocol Stop: 03/25/18 20:14 Dextrose/Sodium Chloride (D5-0.45ns) 1,000 mls @ 75 mls/hr IV .[id number] [facility] Stop: 03/25/18 20:10 Last Admin: 01/26/18 06:01 Dose: 75 mls/hr Vancomycin HCl 0.75 gm/ Sodium (Chloride) 250 mls @ 250 mls/hr IV Q18H [facility] Stop: 03/26/18 11:59 Last Admin: 01/27/18 00:45 Dose: Not Given Norepinephrine Bitartrate 4 mg (/ Sodium Chloride) 254 mls @ 15.24 mls/hr IV TITR [facility]; 4 MCG/MIN PRN Reason: Protocol Stop: 03/26/18 08:14 Last Titration: 01/27/18 00:22 Dose: 0 mcg/min, 0 mls/hr Insulin Aspart (Novolog Insulin Sliding Scale) 0 units SUBQ Q6HR [facility] PRN Reason: Protocol Stop: 03/27/18 00:00 Last Admin: 01/27/18 06:13 Dose: Not Given Magnesium Hydroxide (Milk Of Magnesia) 30 ml PO DAILY PRN PRN Reason: IF NO BM IN TWO DAYS Stop: 03/21/18 16:07 Megestrol Acetate (Megace) 400 mg PO BID [facility] Stop: 03/21/18 16:59 Last Admin: 01/26/18 18:44 Dose: 400 mg Metoprolol Tartrate (Lopressor) 5 mg IV Q4H PRN PRN Reason: Tachycardia Stop: 03/25/18 12:29 Miscellaneous (Vancomycin Iv Per Pharmacy) 1 ea MC PRN [facility] Stop: 03/25/18 17:59 Multivitamins/Vitamin C (Theragran) 1 tab PO DAILY [facility] Stop: 03/22/18 08:59 Last Admin: 01/26/18 09:48 Dose: 1 tab Nystatin (Nystop) 100,000 units TP QSHIFT [facility] Stop: 03/21/18 19:59 Last Admin: 01/26/18 20:18 Dose: Not Given Ondansetron HCl (Zofran Odt) 4 mg PO Q6H PRN PRN Reason: Nausea / Vomiting Stop: 03/21/18 16:07 Prednisone (Deltasone) 10 mg PO DAILY [facility] Stop: 03/22/18 08:59 Last Admin: 01/26/18 09:48 Dose: 10 mg Sodium Phosphate (Fleet Enema) 135 ml RC DAILY PRN PRN Reason: Constipation Stop: 03/21/18 16:07 Vitamin A (Vitamin A & D) 5 gm TP DAILY [facility] Stop: 03/22/18 08:59 Last Admin: 01/26/18 10:12 Dose: 5 gm - Procedures Procedures: Procedures Procedure Code Date INSERT EMERGENCY AIRWAY 73857 01/20/18 INSERTION OF ENDOTRACHEAL AIRWAY INTO TRACHEA, VIA OPENING 2DS75MS 01/20/18 RESPIRATORY VENTILATION, LESS THAN 24 CONSECUTIVE HOURS [id number] 01/20/18 VENT MGMT INPAT INIT DAY 95154 01/20/18 Assessment/Plan - Problem List Patient Problems: All Active Problems ELEVATED WBC, LUNG INFILTRATES (Acute) Nutritional Asmnt/Malnutr-PDOC - Dietary Evaluation Malnutrition Findings (Please click <Entered> for more info): Nutritional Asmnt/Malnutrition Start: 01/21/18 16: 32 Text: Status: Complete Freq: Document 01/21/18 16:32 [id number] (Rec: 01/21/18 16:48 [facility] Nutritional Asmnt/Malnutrition Patient General Information Nutritional Screening High Risk Consult Diagnosis left lung infiltrate Pertinent Medical Hx/Surgical Hx dementia, HTN, hyperlipidemia per ER notes, no H&P at this time Subjective Information Pt seen sleeping at time of visit, not able to wake up for lunch. Per [employer], pt only had cereal and scrambled eggs this morning, not able to chew the [place] toast d/t weakness. Current Diet Order/ Nutrition Support low cholesterol 300gm Pertinent Medications D5-0.45ns, novolog, megace, theragran, piperacillin, vit A &D Pertinent Labs 01/21 BUN 32, Glucose 180, POC 142-261 01/20 A1c 5.1, POC 127-165 Nutritional Hx/Data Height 1.6 m Height (Calculated Centimeters) 160.0 Current Weight (lbs) 37.648 kg Weight (Calculated Kilograms) 37.6 Weight (Calculated Grams) 90466.2 [place] Body Weight 115 Body Mass Index (BMI) 14.7 Weight Status Underweight GI Symptoms GI Symptoms None Last BM none Difficult in: None Skin Integrity/Comment: reddened to vagina and coccyx Current %PO Poor (25-49%) Estimated Nutritional Goals Calories/Kcals/Kg 25-30 Kcals Calculated 5376-4282 Protein g/k Protein Calculated 52 Fluid: ml 1300-1560ml (1ml/kcal) Nutritional Problem 2. Problem Problem chewing difficulty Etiology weakness, sleepy Signs/Symptoms: pt need for mech soft diet 1. Problem Problem altered nutrition related lab values Etiology hyperglycemia Signs/Symptoms: Glucose 180, POC 127-261 Intervention/Recommendation Comments 1. Recommend Mech soft ground diet with Boost BID to increase nutrition intake. 2. Monitor PO intake, wt, labs and skin integrity 3. F/U as high risk in 2-3 days, 01/23-01/24 Expected Outcomes/Goals Expected Outcomes/Goals 1. PO intake to meet at least 75% of nutritional needs. 2. Wt stability, skin to remain intact, labs to approach WNL.
--- NOTE | 2018-01-27 09:28 | Diagnostic Imaging Report ---
Portable chest x-ray HISTORY: Shortness of breath Compared to prior exam of January 25, 2018, there persistent ill-defined bilateral pulmonary infiltrates. The heart size remains normal. Endotracheal tube tip is approximate 3.5 cm above the andrew. IMPRESSION: No change in pulmonary status. 2. Persistent bilateral interstitial lung changes. Findings may be chronic. Superimposed pneumonia cannot be excluded. Clinical correlation is needed. If necessary, a CT scan would provide additional detail of the pulmonary parenchyma.
[2018-01-27] MEDS: Multivitamin Tab PO SCH (09:30)
[2018-01-27] MEDS: Vitamin A/Vitamin D 5 gm Packet TP SCH (09:31)
[2018-01-27] MEDS: Chlorhexidine Gluconate 0.12% 15mL Mouthwash MM SCH ×2 (09:32→20:39)
[2018-01-27 12:37] LABS: ANION GAP 9.9 (7.0-16.0); BUN - UREA NITROGEN 33 mg/dL (7-25); CALCIUM SERUM 7.2 mg/dL (8.6-10.3); CARBON DIOXIDE 17.2 mEq/L (21.0-31.0); CHLORIDE 107 mEq/L (98-107); CREATININE - SERUM 1.7 mg/dL (0.6-1.2); GLUCOSE 130 mg/dL (70-105); POTASSIUM SERUM 3.1 mEq/L (3.5-5.1); SODIUM SERUM 131 mEq/L (136-145)
[2018-01-27] MEDS ORDERED: KCL 20mEq/100mL Premix 20 MEQ/100 ML PIGGYBACK IV ONE (14:14)
[2018-01-27] MEDS: Meropenem 1 GM in Sodium Chloride 0.9% 100 ML IV SCH ×2 (14:45→20:41)
--- NOTE | 2018-01-27 15:07 | Infectious Disease Prog Note ---
Infectious Disease Subjective - Review of Systems Service Date: 01/27/18 Events since last encounter: Nonsignificant. Subjective: No fever, remains intubated orally. on the ventilator support. Infectious Disease Objective - Results Result Diagrams: 01/27/18 04:58 01/27/18 12:12 Recent Labs: Laboratory Last Values WBC 29.7 Th/cmm (4.8-10.8) H* 01/27/18 04:58 RBC 2.86 Mil/cmm (3.80-5.20) L 01/27/18 04:58 Hgb 8.5 gm/dL (12-16) L 01/27/18 04:58 Hct 24.6 % (41.0-60) L 01/27/18 04:58 MCV 85.9 fl (81-100) 01/27/18 04:58 MCH 29.6 pg (27.0-31.0) 01/27/18 04:58 MCHC Differential 34.5 pg (28.0-36.0) 01/27/18 04:58 RDW 16.5 % (11.5-20.0) 01/27/18 04:58 Plt Count 209 Th/cmm (150-400) 01/27/18 04:58 MPV 8.5 fl 01/27/18 04:58 Neutrophils % 86.6 % (40.0-80.0) H 01/23/18 06:00 Band Neutrophils % 11 % (0-10) H 01/27/18 04:58 Lymphocytes % 5.3 % (20.0-50.0) L 01/23/18 06:00 Monocytes % 7.6 % (2.0-10.0) 01/23/18 06:00 Eosinophils % 0.5 % (0.0-5.0) 01/23/18 06:00 Basophils % 0.0 % (0.0-2.0) 01/23/18 06:00 Neutrophils (Manual) 80 % (40-80) 01/27/18 04:58 Lymphocytes 4 % (20-50) L 01/27/18 04:58 Monocytes 5 % (2-10) 01/27/18 04:58 Eosinophils 0 % (0-5) 01/27/18 04:58 Basophils 0 % (0-3) 01/27/18 04:58 Platelet Estimate ADEQUATE (NORMAL) 01/27/18 04:58 Platelet Morphology NORMAL (NORMAL) 01/27/18 04:58 RBC Morph Micro Appear NORMAL (NORMAL) 01/27/18 04:58 Specimen Source Arterial 01/24/18 17:45 Sample Site Left Radial 01/24/18 17:45 pH 7.41 (7.35-7.45) 01/24/18 17:45 pCO2 32.0 mmHg (35.0-45.0) L 01/24/18 17:45 pO2 397.0 mmHg (80.0-100.0) H 01/24/18 17:45 HCO3 22.3 mEq/L (20.0-26.0) 01/24/18 17:45 Base Excess -3.5 mEq/L (-3.0-3.0) L 01/24/18 17:45 O2 Saturation 100.0 % (92.0-100.0) 01/24/18 17:45 Bebo Test YES 01/24/18 17:45 Vent Rate 14 01/24/18 17:45 Inspired O2 100 01/24/18 17:45 Tidal Volume 450 01/24/18 17:45 PEEP 5 01/24/18 17:45 Pressure (ins/psv/peep) NA 01/24/18 17:45 Critical Value E.BRIDGES 01/24/18 17:45 Sodium 131 mEq/L (136-145) L 01/27/18 12:12 Potassium 3.1 mEq/L (3.5-5.1) L 01/27/18 12:12 Chloride 107 mEq/L (98-107) 01/27/18 12:12 Carbon Dioxide 17.2 mEq/L (21.0-31.0) L 01/27/18 12:12 Anion Gap 9.9 (7.0-16.0) 01/27/18 12:12 BUN 33 mg/dL (7-25) H 01/27/18 12:12 Creatinine 1.7 mg/dL (0.6-1.2) H 01/27/18 12:12 Est GFR ( Amer) TNP 01/27/18 12:12 Est GFR (Non-Af Amer) TNP 01/27/18 12:12 BUN/Creatinine Ratio 19.4 01/27/18 12:12 Glucose 130 mg/dL (70-105) H 01/27/18 12:12 POC Glucose 131 MG/DL (70 - 105) H 01/27/18 11:29 Hemoglobin A1c % 5.1 % (4.0-6.0) 01/20/18 12:15 Whole Bld Lactic Acid 4.20 mmol/L (0.60-1.99) H* 01/24/18 21:33 Calcium 7.2 mg/dL (8.6-10.3) L 01/27/18 12:12 Iron 54 ug/dL (27-139) 01/20/18 12:50 TIBC 159 ug/dL (250-450) L 01/20/18 12:50 Iron Saturation 34 % (15-55) 01/20/18 12:50 Unsaturated IBC 105 ug/dL (118-369) L 01/20/18 12:50 Ferritin 1230 ng/mL (15-150) H 01/20/18 12:50 Total Bilirubin 0.3 mg/dL (0.3-1.0) 01/20/18 12:30 Direct Bilirubin 0.07 mg/dL (0.0-0.2) 01/20/18 12:30 AST 32 U/L (13-39) 01/20/18 12:30 ALT 25 U/L (7-52) 01/20/18 12:30 Alkaline Phosphatase 73 U/L (34-104) 01/20/18 12:30 Troponin I 0.03 ng/mL (0.01-0.05) 01/20/18 12:15 C-Reactive Protein 4.3 mg/dL (0.0-0.9) H 01/20/18 12:50 B-Natriuretic Peptide 185.0 pg/mL (5.0-100.0) H 01/25/18 04:20 Total Protein gm/dL (6.0-8.3) 01/20/18 12:30 Albumin 3.0 gm/dL (3.7-5.3) L 01/20/18 12:30 Globulin 2.5 gm/dL 01/20/18 12:30 Albumin/Globulin Ratio 1.2 (1.0-1.8) 01/20/18 12:30 Triglycerides 97 mg/dL (<150) 01/20/18 12:15 Cholesterol 195 mg/dL (<200) 01/20/18 12:15 LDL Cholesterol Direct 152 mg/dL (75-193) 01/20/18 12:15 HDL Cholesterol 40 mg/dL (23-92) 01/20/18 12:15 Lipase 108 U/L (11-82) H 01/20/18 12:15 Free T4 1.12 ng/dL (0.82-1.77) 01/20/18 12:50 TSH 0.06 uIU/ml (0.34-5.60) L 01/20/18 12:15 Vancomycin Trough 27.8 ug/mL (10-20) H 01/26/18 23:00 - Physical Exam Vitals and I&O: Vital Signs Temp 96.2 F 01/27/18 08:00 Pulse 62 01/27/18 13:17 Resp 15 01/27/18 12:00 BP 157/57 01/27/18 12:00 Pulse Ox 100 01/27/18 13:17 Intake & Output 01/26/18 01/27/18 01/27/18 18:59 06:59 18:59 Intake Total 954 457.734 Output Total 150 100 Balance 804 357.734 Weight (lbs) 42.638 kg 42.638 kg Intake: Intake, IV Amount 604 257.734 Meropenem 1 gm In Sodium 100 100 Chloride 0.9% 100 ml @ 100 mls/hr IV Q12H [facility] Rx #:[id number] Norepinephrine 4 mg In 254 157.734 Sodium Chloride 0.9% 250 ml @ 4 MCG/MIN 15.24 mls/ hr IV TITR [facility] Rx#: [id number] Vancomycin HCl 0.75 gm In 250 Sodium Chloride 0.9% 250 ml @ 250 mls/hr IV Q18H [facility] Rx#:[id number] Other 350 200 Output: Urine 150 100 Other: # Bowel Movements 3 Stool Characteristics Liquid Liquid Black Green Active Medications: Current Medications Acetaminophen (Tylenol) 650 mg PO Q4H PRN PRN Reason: MILD PAIN OR TEMP >100.4 Stop: 03/21/18 16:07 Al Hydrox/Mg Hydrox/Simethicone (Maalox) 30 ml PO Q6HR PRN PRN Reason: GI DISTRESS Stop: 03/21/18 16:28 Artificial Tears (Artificial Tears Ophth Soln) 1 drop EACH EYE Q2HR PRN PRN Reason: Dry Eye Stop: 03/27/18 09:28 Last Admin: 01/26/18 10:13 Dose: 1 drop Atorvastatin Calcium (Lipitor) 80 mg PO HS [facility] PRN Reason: Protocol Stop: 03/21/18 20:59 Last Admin: 01/26/18 20:19 Dose: 80 mg Bisacodyl (Dulcolax 10 Mg Supp) 10 mg RC DAILY PRN PRN Reason: Constipation Stop: 03/21/18 16:07 Carvedilol (Coreg) 12.5 mg PO BID [facility] Stop: 03/21/18 16:59 Last Admin: 01/26/18 18:44 Dose: 12.5 mg Chlorhexidine Gluconate (Peridex) 15 ml MM 0800,1999 [facility] Stop: 03/27/18 07:59 Last Admin: 01/27/18 09:32 Dose: 15 ml Dextrose (D50w) 50 ml IVP PRN PRN PRN Reason: HYPOGLYCEMIA Stop: 03/21/18 16:07 Diltiazem HCl (Cardizem) 60 mg PO Q6HR [facility] Stop: 03/21/18 17:59 Last Admin: 01/27/18 06:06 Dose: Not Given Enalaprilat (Vasotec) 2.5 mg IVP Q6HR PRN PRN Reason: SBP ABOVE 160 Stop: 03/25/18 11:59 Last Admin: 01/24/18 15:13 Dose: 2.5 mg Glucagon (Glucagen) 1 mg IVP PRN PRN PRN Reason: HYPOGLYCEMIA Stop: 03/21/18 16:25 Heparin Sodium (Porcine) (Heparin) 5,000 units SUBQ Q12HR [facility] Stop: 03/22/18 20:59 Last Admin: 01/27/18 09:53 Dose: 5,000 units Meropenem 1 gm/ Sodium (Chloride) 100 mls @ 100 mls/hr IV Q12H [facility] Stop: 03/26/18 08:59 Last Admin: 01/27/18 14:45 Dose: 100 mls/hr Phenylephrine HCl 10 mg/ (Sodium Chloride) 250 mls @ 75 mls/hr IV TITR [facility]; 50 MCG/MIN PRN Reason: Protocol Stop: 03/25/18 20:14 Norepinephrine Bitartrate 4 mg (/ Sodium Chloride) 254 mls @ 15.24 mls/hr IV TITR [facility]; 4 MCG/MIN PRN Reason: Protocol Stop: 03/26/18 08:14 Last Titration: 01/27/18 00:22 Dose: 0 mcg/min, 0 mls/hr Potassium Chloride/Dextrose/Sod Cl (D5-0.9ns W/Kcl 20meq) 1,000 mls @ 75 mls/ hr IV .[id number] [facility] Stop: 03/28/18 14:06 Potassium Chloride (Potassium Chloride) 20 meq in 100 mls @ 50 mls/hr IV X1 ONE Stop: 01/27/18 16:13 Last Admin: 01/27/18 14:43 Dose: 50 mls/hr Insulin Aspart (Novolog Insulin Sliding Scale) 0 units SUBQ Q6HR [facility] PRN Reason: Protocol Stop: 03/27/18 00:00 Last Admin: 01/27/18 12:00 Dose: Not Given Magnesium Hydroxide (Milk Of Magnesia) 30 ml PO DAILY PRN PRN Reason: IF NO BM IN TWO DAYS Stop: 03/21/18 16:07 Megestrol Acetate (Megace) 400 mg PO BID [facility] Stop: 03/21/18 16:59 Last Admin: 01/27/18 09:30 Dose: 400 mg Metoprolol Tartrate (Lopressor) 5 mg IV Q4H PRN PRN Reason: Tachycardia Stop: 03/25/18 12:29 Miscellaneous (Vancomycin Iv Per Pharmacy) 1 ea MC PRN [facility] Stop: 03/25/18 17:59 Multivitamins/Vitamin C (Theragran) 1 tab PO DAILY [facility] Stop: 03/22/18 08:59 Last Admin: 01/27/18 09:30 Dose: 1 tab Nystatin (Nystop) 100,000 units TP QSHIFT [facility] Stop: 03/21/18 19:59 Last Admin: 01/26/18 20:18 Dose: Not Given Ondansetron HCl (Zofran Odt) 4 mg PO Q6H PRN PRN Reason: Nausea / Vomiting Stop: 03/21/18 16:07 Prednisone (Deltasone) 10 mg PO DAILY [facility] Stop: 03/22/18 08:59 Last Admin: 01/27/18 09:30 Dose: 10 mg Sodium Phosphate (Fleet Enema) 135 ml RC DAILY PRN PRN Reason: Constipation Stop: 03/21/18 16:07 Vitamin A (Vitamin A & D) 5 gm TP DAILY [facility] Stop: 03/22/18 08:59 Last Admin: 01/27/18 09:31 Dose: 5 gm General: no acute distress, well developed, well nourished HEENT: atraumatic, normocephalic, PERRLA Neck: supple, no thyromegaly, no lymphadenopathy Cardiovascular: S1S2, regular Lungs: crackles Abdomen: soft, no tender, no distended, no mass Extremities: no cyanosis, no clubbing, no edema Neurological: other (sedated.) - Procedures Procedures: Procedures Procedure Code Date INSERT EMERGENCY AIRWAY 36673 01/20/18 INSERTION OF ENDOTRACHEAL AIRWAY INTO [place], VIA OPENING [id number] 01/20/18 RESPIRATORY VENTILATION, LESS THAN 24 CONSECUTIVE HOURS [id number] 01/20/18 VENT MGMT INPAT INIT DAY 10090 01/20/18 Infectious Disease Assmt/Plan - Problem List Patient Problems: All Active Problems ELEVATED WBC, LUNG INFILTRATES (Acute) - Assessment Assessment: 1. Leukocytosis. suspect sepsis. 2. Pneumonia. L lung. 3. Dementia 4. S/p CP arrest. 5. Anoxic encephalopathy. 6. VDRF. - Plan Plan: Continue vanco IV and meropenem. sepsis w/u. Nutritional Asmnt/Malnutr-PDOC - Dietary Evaluation Malnutrition Findings (Please click <Entered> for more info): Nutritional Asmnt/Malnutrition Start: 01/21/18 16: 32 Text: Status: Complete Freq: Document 01/21/18 16:32 [facility]18 [facility] Nutritional Asmnt/Malnutrition Patient General Information Nutritional Screening High Risk Consult Diagnosis left lung infiltrate Pertinent Medical Hx/Surgical Hx dementia, HTN, hyperlipidemia per ER notes, no H&P at this time Subjective Information Pt seen sleeping at time of visit, not able to wake up for lunch. Per [employer], pt only had cereal and scrambled eggs this morning, not able to chew the [place] toast d/t weakness. Current Diet Order/ Nutrition Support low cholesterol 300gm Pertinent Medications D5-0.45ns, novolog, megace, theragran, piperacillin, vit A &D Pertinent Labs 01/21 BUN 32, Glucose 180, POC 142-261 01/20 A1c 5.1, POC 127-165 Nutritional Hx/Data Height 1.6 m Height (Calculated Centimeters) 160.0 Current Weight (lbs) 37.648 kg Weight (Calculated Kilograms) 37.6 Weight (Calculated Grams) 04668.2 [place] Body Weight 115 Body Mass Index (BMI) 14.7 Weight Status Underweight GI Symptoms GI Symptoms None Last BM none Difficult in: None Skin Integrity/Comment: reddened to vagina and coccyx Current %PO Poor (25-49%) Estimated Nutritional Goals Calories/Kcals/Kg 25-30 Kcals Calculated 5899-5339 Protein g/k Protein Calculated 52 Fluid: ml 1300-1560ml (1ml/kcal) Nutritional Problem 2. Problem Problem chewing difficulty Etiology weakness, sleepy Signs/Symptoms: pt need for mech soft diet 1. Problem Problem altered nutrition related lab values Etiology hyperglycemia Signs/Symptoms: Glucose 180, POC 127-261 Intervention/Recommendation Comments 1. Recommend Mech soft ground diet with Boost BID to increase nutrition intake. 2. Monitor PO intake, wt, labs and skin integrity 3. F/U as high risk in 2-3 days, 01/23-01/24 Expected Outcomes/Goals Expected Outcomes/Goals 1. PO intake to meet at least 75% of nutritional needs. 2. Wt stability, skin to remain intact, labs to approach WNL.
[2018-01-27] MEDS: D5-0.9NS w/KCL 20mEq 1,000 ML IV SCH (17:10)
[2018-01-27] MEDS: Pantoprazole 40 mg/Packet NG SCH (17:22)
[2018-01-27] MEDS: NYSTATIN 100000 UNITS/GM POWD TP SCH ×2 (17:30→20:40)
--- NOTE | 2018-01-28 00:24 | Progress Notes ---
DATE: 01/27/2018 UROLOGY PROGRESS NOTE SUBJECTIVE: The patient remains in the ICU without any Levophed or [place]-Synephrine and maintaining her blood pressure without any support. Ventilator settings are the same. Level of consciousness is unchanged. Urine output has not been very satisfactory and in fact, she has been oliguric; last recorded 250 mL, before that 452 mL and most recent one is only 120 mL. She has generalized oozing from the anasarca as well. PHYSICAL EXAMINATION: VITAL SIGNS: On exam, heart rate is 64, blood pressure is 120/78, she is on the ventilator, saturating at 100%. Last temperature recorded was 97.6. GENERAL: She is not arousable. HEENT: Pupils are reactive. ABDOMEN: Soft and nondistended and nontender. She is edematous as mentioned earlier. CARDIOVASCULAR: Heart sounds, sinus rhythm. LABORATORY DATA: White count remains very elevated at 29.7 and platelets 209, bands 11 and hemoglobin 8.5. Sodium 131, potassium 3.1, creatinine 1.7, BUN 33, not much changed, but worse since when creatinine was 0.9. Glucoses have been 117, 133, 131 and therefore, well controlled. Blood cultures have been negative and sputum cultures show yeast. IMPRESSION: 1. Oliguria, renal insufficiency, rising creatinine and electrolyte imbalance. 2. Regalado catheter status, not much improvement after the catheter was placed. 3. Sacral decubitus, stable after the catheter leading to the less contamination of the wound. 4. Respiratory failure, remains on the ventilator. 5. Sepsis and hypotension, improved, but white count remains high. 6. Pneumonia, no significant change. JOB# [id number]
[2018-01-28] MEDS: D5-0.9NS w/KCL 20mEq 1,000 ML IV SCH ×2 (02:00→16:18)
[2018-01-28 05:08] LABS: ANION GAP 10.7 (7.0-16.0); BUN - UREA NITROGEN 36 mg/dL (7-25); CALCIUM SERUM 7.1 mg/dL (8.6-10.3); CARBON DIOXIDE 17.5 mEq/L (21.0-31.0); CHLORIDE 108 mEq/L (98-107); CREATININE - SERUM 1.9 mg/dL (0.6-1.2); GLUCOSE 170 mg/dL (70-105); HEMATOCRIT 27.2 % (41.0-60); HEMOGLOBIN 9.3 gm/dL (12-16); MEAN CELL VOLUME 88.3 fl (81-100); MEAN CORPUSCULAR HEMOGLOBIN 30.3 pg (27.0-31.0); MEAN CORPUSCULAR HGB CONC 34.3 pg (28.0-36.0); MEAN PLATELET VOLUME 8.9 fl; PLATELET COUNT 208 Th/cmm (150-400); POTASSIUM SERUM 4.2 mEq/L (3.5-5.1); RED BLOOD COUNT 3.08 Mil/cmm (3.80-5.20); RED CELL DISTRIBUTION WIDTH 16.4 % (11.5-20.0); SODIUM SERUM 132 mEq/L (136-145)
[2018-01-28 05:12] LABS: MANUAL DIFF REQUIRED? YES; WHITE BLOOD COUNT 45.2 Th/cmm (4.8-10.8)
[2018-01-28] MEDS: INSULIN ASPART SLIDING SCALE 100 UNITS/ML UNIT SUBQ SCH ×3 (05:47→18:28)
[2018-01-28] MEDS: Diltiazem 30 mg Tab PO SCH ×3 (05:51→17:57)
[2018-01-28 06:01] LABS: BAND NEUTROPHILE 13 % (0-10); LYMPHOCYTE 4 % (20-50); MONOCYTE 10 % (2-10); NEUTROPHILS 73 % (40-80); TOTAL CELLS COUNTED 100
[2018-01-28] MEDS: Multivitamin Tab PO SCH (08:52)
[2018-01-28] MEDS: Vitamin A/Vitamin D 5 gm Packet TP SCH (08:55)
[2018-01-28] MEDS: Meropenem 1 GM in Sodium Chloride 0.9% 100 ML IV SCH ×2 (08:55→21:29)
[2018-01-28] MEDS: Pantoprazole 40 mg/Packet NG SCH (08:55)
[2018-01-28] MEDS: Chlorhexidine Gluconate 0.12% 15mL Mouthwash MM SCH ×2 (08:57→20:32)
--- NOTE | 2018-01-28 11:34 | General Progress Note ---
Subjective - Review of Systems Events since last encounter: patient on vent in no distress Objective - Results Result Diagrams: 01/28/18 04:15 01/28/18 04:15 Recent Labs: Laboratory Last Values WBC 45.2 Th/cmm (4.8-10.8) H* D 01/28/18 04:15 RBC 3.08 Mil/cmm (3.80-5.20) L 01/28/18 04:15 Hgb 9.3 gm/dL (12-16) L 01/28/18 04:15 Hct 27.2 % (41.0-60) L 01/28/18 04:15 MCV 88.3 fl (81-100) 01/28/18 04:15 MCH 30.3 pg (27.0-31.0) 01/28/18 04:15 MCHC Differential 34.3 pg (28.0-36.0) 01/28/18 04:15 RDW 16.4 % (11.5-20.0) 01/28/18 04:15 Plt Count 208 Th/cmm (150-400) 01/28/18 04:15 MPV 8.9 fl 01/28/18 04:15 Neutrophils % 86.6 % (40.0-80.0) H 01/23/18 06:00 Band Neutrophils % 13 % (0-10) H 01/28/18 04:15 Lymphocytes % 5.3 % (20.0-50.0) L 01/23/18 06:00 Monocytes % 7.6 % (2.0-10.0) 01/23/18 06:00 Eosinophils % 0.5 % (0.0-5.0) 01/23/18 06:00 Basophils % 0.0 % (0.0-2.0) 01/23/18 06:00 Neutrophils (Manual) 73 % (40-80) 01/28/18 04:15 Lymphocytes 4 % (20-50) L 01/28/18 04:15 Monocytes 10 % (2-10) 01/28/18 04:15 Eosinophils 0 % (0-5) 01/27/18 04:58 Basophils 0 % (0-3) 01/27/18 04:58 Platelet Estimate ADEQUATE (NORMAL) 01/27/18 04:58 Platelet Morphology NORMAL (NORMAL) 01/27/18 04:58 RBC Morph Micro Appear NORMAL (NORMAL) 01/27/18 04:58 Specimen Source Arterial 01/24/18 17:45 Sample Site Left Radial 01/24/18 17:45 pH 7.41 (7.35-7.45) 01/24/18 17:45 pCO2 32.0 mmHg (35.0-45.0) L 01/24/18 17:45 pO2 397.0 mmHg (80.0-100.0) H 01/24/18 17:45 HCO3 22.3 mEq/L (20.0-26.0) 01/24/18 17:45 Base Excess -3.5 mEq/L (-3.0-3.0) L 01/24/18 17:45 O2 Saturation 100.0 % (92.0-100.0) 01/24/18 17:45 Bebo Test YES 01/24/18 17:45 Vent Rate 14 01/24/18 17:45 Inspired O2 100 01/24/18 17:45 Tidal Volume 450 01/24/18 17:45 PEEP 5 01/24/18 17:45 Pressure (ins/psv/peep) NA 01/24/18 17:45 Critical Value E.BRIDGES 01/24/18 17:45 Sodium 132 mEq/L (136-145) L 01/28/18 04:15 Potassium 4.2 mEq/L (3.5-5.1) 01/28/18 04:15 Chloride 108 mEq/L (98-107) H 01/28/18 04:15 Carbon Dioxide 17.5 mEq/L (21.0-31.0) L 01/28/18 04:15 Anion Gap 10.7 (7.0-16.0) 01/28/18 04:15 BUN 36 mg/dL (7-25) H 01/28/18 04:15 Creatinine 1.9 mg/dL (0.6-1.2) H 01/28/18 04:15 Est GFR ( Amer) TNP 01/28/18 04:15 Est GFR (Non-Af Amer) TNP 01/28/18 04:15 BUN/Creatinine Ratio 18.9 01/28/18 04:15 Glucose 170 mg/dL (70-105) H 01/28/18 04:15 POC Glucose 157 MG/DL (70 - 105) H 01/28/18 05:21 Hemoglobin A1c % 5.1 % (4.0-6.0) 01/20/18 12:15 Whole Bld Lactic Acid 4.20 mmol/L (0.60-1.99) H* 01/24/18 21:33 Calcium 7.1 mg/dL (8.6-10.3) L 01/28/18 04:15 Iron 54 ug/dL (27-139) 01/20/18 12:50 TIBC 159 ug/dL (250-450) L 01/20/18 12:50 Iron Saturation 34 % (15-55) 01/20/18 12:50 Unsaturated IBC 105 ug/dL (118-369) L 01/20/18 12:50 Ferritin 1230 ng/mL (15-150) H 01/20/18 12:50 Total Bilirubin 0.3 mg/dL (0.3-1.0) 01/20/18 12:30 Direct Bilirubin 0.07 mg/dL (0.0-0.2) 01/20/18 12:30 AST 32 U/L (13-39) 01/20/18 12:30 ALT 25 U/L (7-52) 01/20/18 12:30 Alkaline Phosphatase 73 U/L (34-104) 01/20/18 12:30 Troponin I 0.03 ng/mL (0.01-0.05) 01/20/18 12:15 C-Reactive Protein 4.3 mg/dL (0.0-0.9) H 01/20/18 12:50 B-Natriuretic Peptide 185.0 pg/mL (5.0-100.0) H 01/25/18 04:20 Total Protein gm/dL (6.0-8.3) 01/20/18 12:30 Albumin 3.0 gm/dL (3.7-5.3) L 01/20/18 12:30 Globulin 2.5 gm/dL 01/20/18 12:30 Albumin/Globulin Ratio 1.2 (1.0-1.8) 01/20/18 12:30 Triglycerides 97 mg/dL (<150) 01/20/18 12:15 Cholesterol 195 mg/dL (<200) 01/20/18 12:15 LDL Cholesterol Direct 152 mg/dL (75-193) 01/20/18 12:15 HDL Cholesterol 40 mg/dL (23-92) 01/20/18 12:15 Lipase 108 U/L (11-82) H 01/20/18 12:15 Free T4 1.12 ng/dL (0.82-1.77) 01/20/18 12:50 TSH 0.06 uIU/ml (0.34-5.60) L 01/20/18 12:15 Vancomycin Trough 27.8 ug/mL (10-20) H 01/26/18 23:00 Random Vancomycin 24.3 ug/mL (5.0-40.0) 01/28/18 04:15 - Physical Exam Vitals and I&O: Vital Signs Temp 96.6 F 01/28/18 09:00 Pulse 65 01/28/18 11:05 Resp 14 01/28/18 11:00 BP 128/45 01/28/18 11:00 Pulse Ox 100 01/28/18 11:05 Intake & Output 01/27/18 01/28/18 01/28/18 18:59 06:59 18:59 Intake Total 380 1660 140 Output Total 120 80 Balance 260 1580 140 Weight (lbs) 42.638 kg 42.638 kg 55.792 kg Intake: Intake, IV Amount 100 1100 D5-0.9NS w/KCL 20mEq 1, 1000 000 ml @ 75 mls/hr IV . [id number] [facility] Rx#:[id number] Meropenem 1 gm In Sodium 100 100 Chloride 0.9% 100 ml @ 100 mls/hr IV Q12H [facility] Rx #:[id number] Tube Feeding 30 360 140 Other 250 200 Output: Urine 120 80 Other: # Bowel Movements 2 Stool Characteristics Liquid Black Green Active Medications: Current Medications Acetaminophen (Tylenol) 650 mg PO Q4H PRN PRN Reason: MILD PAIN OR TEMP >100.4 Stop: 03/21/18 16:07 Al Hydrox/Mg Hydrox/Simethicone (Maalox) 30 ml PO Q6HR PRN PRN Reason: GI DISTRESS Stop: 03/21/18 16:28 Artificial Tears (Artificial Tears Ophth Soln) 1 drop EACH EYE Q2HR PRN PRN Reason: Dry Eye Stop: 03/27/18 09:28 Last Admin: 03/17/18 10:13 Dose: 1 drop Atorvastatin Calcium (Lipitor) 80 mg PO HS [facility] PRN Reason: Protocol Stop: 03/21/18 20:59 Last Admin: 01/27/18 20:41 Dose: 80 mg Bisacodyl (Dulcolax 10 Mg Supp) 10 mg RC DAILY PRN PRN Reason: Constipation Stop: 03/21/18 16:07 Carvedilol (Coreg) 12.5 mg PO BID [facility] Stop: 03/21/18 16:59 Last Admin: 01/28/18 08:55 Dose: 12.5 mg Chlorhexidine Gluconate (Peridex) 15 ml MM 0800,1999 [facility] Stop: 03/27/18 07:59 Last Admin: 01/28/18 08:57 Dose: 15 ml Dextrose (D50w) 50 ml IVP PRN PRN PRN Reason: HYPOGLYCEMIA Stop: 03/21/18 16:07 Diltiazem HCl (Cardizem) 60 mg PO Q6HR [facility] Stop: 03/21/18 17:59 Last Admin: 01/28/18 05:51 Dose: Not Given Enalaprilat (Vasotec) 2.5 mg IVP Q6HR PRN PRN Reason: SBP ABOVE 160 Stop: 03/25/18 11:59 Last Admin: 01/24/18 15:13 Dose: 2.5 mg Glucagon (Glucagen) 1 mg IVP PRN PRN PRN Reason: HYPOGLYCEMIA Stop: 03/21/18 16:25 Heparin Sodium (Porcine) (Heparin) 5,000 units SUBQ Q12HR [facility] Stop: 03/22/18 20:59 Last Admin: 01/28/18 08:52 Dose: 5,000 units Meropenem 1 gm/ Sodium (Chloride) 100 mls @ 100 mls/hr IV Q12H [facility] Stop: 03/26/18 08:59 Last Admin: 01/28/18 08:55 Dose: 100 mls/hr Phenylephrine HCl 10 mg/ (Sodium Chloride) 250 mls @ 75 mls/hr IV TITR [facility]; 50 MCG/MIN PRN Reason: Protocol Stop: 03/25/18 20:14 Norepinephrine Bitartrate 4 mg (/ Sodium Chloride) 254 mls @ 15.24 mls/hr IV TITR [facility]; 4 MCG/MIN PRN Reason: Protocol Stop: 03/26/18 08:14 Last Titration: 01/27/18 00:22 Dose: 0 mcg/min, 0 mls/hr Potassium Chloride/Dextrose/Sod Cl (D5-0.9ns W/Kcl 20meq) 1,000 mls @ 75 mls/ hr IV .[id number] [facility] Stop: 03/28/18 14:06 Last Admin: 01/28/18 02:00 Dose: 125 mls/hr Insulin Aspart (Novolog Insulin Sliding Scale) 0 units SUBQ Q6HR [facility] PRN Reason: Protocol Stop: 03/27/18 00:00 Last Admin: 01/28/18 05:47 Dose: 2 units Magnesium Hydroxide (Milk Of Magnesia) 30 ml PO DAILY PRN PRN Reason: IF NO BM IN TWO DAYS Stop: 03/21/18 16:07 Megestrol Acetate (Megace) 400 mg PO BID [facility] Stop: 03/21/18 16:59 Last Admin: 01/28/18 08:55 Dose: 400 mg Metoprolol Tartrate (Lopressor) 5 mg IV Q4H PRN PRN Reason: Tachycardia Stop: 03/25/18 12:29 Miscellaneous (Vancomycin Iv Per Pharmacy) 1 ea MC PRN [facility] Stop: 03/25/18 17:59 Multivitamins/Vitamin C (Theragran) 1 tab PO DAILY [facility] Stop: 03/22/18 08:59 Last Admin: 01/28/18 08:52 Dose: 1 tab Ondansetron HCl (Zofran Odt) 4 mg PO Q6H PRN PRN Reason: Nausea / Vomiting Stop: 03/21/18 16:07 Pantoprazole Sodium (Protonix) 40 mg NG DAILY [facility] Stop: 03/28/18 16:59 Last Admin: 01/28/18 08:55 Dose: 40 mg Prednisone (Deltasone) 10 mg PO DAILY [facility] Stop: 03/22/18 08:59 Last Admin: 01/28/18 08:55 Dose: 10 mg Sodium Phosphate (Fleet Enema) 135 ml RC DAILY PRN PRN Reason: Constipation Stop: 03/21/18 16:07 Vitamin A (Vitamin A & D) 5 gm TP DAILY [facility] Stop: 03/22/18 08:59 Last Admin: 01/28/18 08:55 Dose: 5 gm - Procedures Procedures: Procedures Procedure Code Date INSERT EMERGENCY AIRWAY 59892 01/20/18 INSERTION OF ENDOTRACHEAL AIRWAY INTO [place], VIA OPENING [id number] 01/20/18 RESPIRATORY VENTILATION, 24-96 CONSECUTIVE HOURS [id number] 01/20/18 VENT MGMT INPAT INIT DAY 57840 01/20/18 Assessment/Plan - Problem List Patient Problems: All Active Problems ELEVATED WBC, LUNG INFILTRATES (Acute) Nutritional Asmnt/Malnutr-PDOC - Dietary Evaluation Malnutrition Findings (Please click <Entered> for more info): Nutritional Asmnt/Malnutrition Start: 01/21/18 16: 32 Text: Status: Complete Freq: Document 01/21/18 16:32 [email or web address] (Rec: 01/21/18 16:48 LCHENG [email or web address]) Nutritional Asmnt/Malnutrition Patient General Information Nutritional Screening High Risk Consult Diagnosis left lung infiltrate Pertinent Medical Hx/Surgical Hx dementia, HTN, hyperlipidemia per ER notes, no H&P at this time Subjective Information Pt seen sleeping at time of visit, not able to wake up for lunch. Per [employer], pt only had cereal and scrambled eggs this morning, not able to chew the [place] toast d/t weakness. Current Diet Order/ Nutrition Support low cholesterol 300gm Pertinent Medications D5-0.45ns, novolog, megace, theragran, piperacillin, vit A &D Pertinent Labs 01/21 BUN 32, Glucose 180, POC 142-261 01/20 A1c 5.1, POC 127-165 Nutritional Hx/Data Height 1.6 m Height (Calculated Centimeters) 160.0 Current Weight (lbs) 37.648 kg Weight (Calculated Kilograms) 37.6 Weight (Calculated Grams) 96720.2 [place] Body Weight 115 Body Mass Index (BMI) 14.7 Weight Status Underweight GI Symptoms GI Symptoms None Last BM none Difficult in: None Skin Integrity/Comment: reddened to vagina and coccyx Current %PO Poor (25-49%) Estimated Nutritional Goals Calories/Kcals/Kg 25-30 Kcals Calculated 9310-7744 Protein g/k Protein Calculated 52 Fluid: ml 1300-1560ml (1ml/kcal) Nutritional Problem 2. Problem Problem chewing difficulty Etiology weakness, sleepy Signs/Symptoms: pt need for mech soft diet 1. Problem Problem altered nutrition related lab values Etiology hyperglycemia Signs/Symptoms: Glucose 180, POC 127-261 Intervention/Recommendation Comments 1. Recommend [facility] soft ground diet with Boost BID to increase nutrition intake. 2. Monitor PO intake, wt, labs and skin integrity 3. F/U as high risk in 2-3 days, 01/23-01/24 Expected Outcomes/Goals Expected Outcomes/Goals 1. PO intake to meet at least 75% of nutritional needs. 2. Wt stability, skin to remain intact, labs to approach WNL.
[2018-01-28] MEDS ORDERED: Diatrizoate Meglumine/Diatri 30 mL Sol PO ONE (13:29)
--- NOTE | 2018-01-28 13:31 | Infectious Disease Prog Note ---
Infectious Disease Subjective - Review of Systems Service Date: 01/28/18 Subjective: No fever, remains intubated orally. on the ventilator support. Infectious Disease Objective - Results Result Diagrams: 01/28/18 04:15 01/28/18 04:15 Recent Labs: Laboratory Last Values WBC 45.2 Th/cmm (4.8-10.8) H* D 01/28/18 04:15 RBC 3.08 Mil/cmm (3.80-5.20) L 01/28/18 04:15 Hgb 9.3 gm/dL (12-16) L 01/28/18 04:15 Hct 27.2 % (41.0-60) L 01/28/18 04:15 MCV 88.3 fl (81-100) 01/28/18 04:15 MCH 30.3 pg (27.0-31.0) 01/28/18 04:15 MCHC Differential 34.3 pg (28.0-36.0) 01/28/18 04:15 RDW 16.4 % (11.5-20.0) 01/28/18 04:15 Plt Count 208 Th/cmm (150-400) 01/28/18 04:15 MPV 8.9 fl 01/28/18 04:15 Neutrophils % 86.6 % (40.0-80.0) H 01/23/18 06:00 Band Neutrophils % 13 % (0-10) H 01/28/18 04:15 Lymphocytes % 5.3 % (20.0-50.0) L 01/23/18 06:00 Monocytes % 7.6 % (2.0-10.0) 01/23/18 06:00 Eosinophils % 0.5 % (0.0-5.0) 01/23/18 06:00 Basophils % 0.0 % (0.0-2.0) 01/23/18 06:00 Neutrophils (Manual) 73 % (40-80) 01/28/18 04:15 Lymphocytes 4 % (20-50) L 01/28/18 04:15 Monocytes 10 % (2-10) 01/28/18 04:15 Eosinophils 0 % (0-5) 01/27/18 04:58 Basophils 0 % (0-3) 01/27/18 04:58 Platelet Estimate ADEQUATE (NORMAL) 01/27/18 04:58 Platelet Morphology NORMAL (NORMAL) 01/27/18 04:58 RBC Morph Micro Appear NORMAL (NORMAL) 01/27/18 04:58 Specimen Source Arterial 01/24/18 17:45 Sample Site Left Radial 01/24/18 17:45 pH 7.41 (7.35-7.45) 01/24/18 17:45 pCO2 32.0 mmHg (35.0-45.0) L 01/24/18 17:45 pO2 397.0 mmHg (80.0-100.0) H 01/24/18 17:45 HCO3 22.3 mEq/L (20.0-26.0) 01/24/18 17:45 Base Excess -3.5 mEq/L (-3.0-3.0) L 01/24/18 17:45 O2 Saturation 100.0 % (92.0-100.0) 01/24/18 17:45 Bebo Test YES 01/24/18 17:45 Vent Rate 14 01/24/18 17:45 Inspired O2 100 01/24/18 17:45 Tidal Volume 450 01/24/18 17:45 PEEP 5 01/24/18 17:45 Pressure (ins/psv/peep) NA 01/24/18 17:45 Critical Value E.BRIDGES 01/24/18 17:45 Sodium 132 mEq/L (136-145) L 01/28/18 04:15 Potassium 4.2 mEq/L (3.5-5.1) 01/28/18 04:15 Chloride 108 mEq/L (98-107) H 01/28/18 04:15 Carbon Dioxide 17.5 mEq/L (21.0-31.0) L 01/28/18 04:15 Anion Gap 10.7 (7.0-16.0) 01/28/18 04:15 BUN 36 mg/dL (7-25) H 01/28/18 04:15 Creatinine 1.9 mg/dL (0.6-1.2) H 01/28/18 04:15 Est GFR ( Amer) TNP 01/28/18 04:15 Est GFR (Non-Af Amer) TNP 01/28/18 04:15 BUN/Creatinine Ratio 18.9 01/28/18 04:15 Glucose 170 mg/dL (70-105) H 01/28/18 04:15 POC Glucose 157 MG/DL (70 - 105) H 01/28/18 12:09 Hemoglobin A1c % 5.1 % (4.0-6.0) 01/20/18 12:15 Whole Bld Lactic Acid 4.20 mmol/L (0.60-1.99) H* 01/24/18 21:33 Calcium 7.1 mg/dL (8.6-10.3) L 01/28/18 04:15 Iron 54 ug/dL (27-139) 01/20/18 12:50 TIBC 159 ug/dL (250-450) L 01/20/18 12:50 Iron Saturation 34 % (15-55) 01/20/18 12:50 Unsaturated IBC 105 ug/dL (118-369) L 01/20/18 12:50 Ferritin 1230 ng/mL (15-150) H 01/20/18 12:50 Total Bilirubin 0.3 mg/dL (0.3-1.0) 01/20/18 12:30 Direct Bilirubin 0.07 mg/dL (0.0-0.2) 01/20/18 12:30 AST 32 U/L (13-39) 01/20/18 12:30 ALT 25 U/L (7-52) 01/20/18 12:30 Alkaline Phosphatase 73 U/L (34-104) 01/20/18 12:30 Troponin I 0.03 ng/mL (0.01-0.05) 01/20/18 12:15 C-Reactive Protein 4.3 mg/dL (0.0-0.9) H 01/20/18 12:50 B-Natriuretic Peptide 185.0 pg/mL (5.0-100.0) H 01/25/18 04:20 Total Protein gm/dL (6.0-8.3) 01/20/18 12:30 Albumin 3.0 gm/dL (3.7-5.3) L 01/20/18 12:30 Globulin 2.5 gm/dL 01/20/18 12:30 Albumin/Globulin Ratio 1.2 (1.0-1.8) 01/20/18 12:30 Triglycerides 97 mg/dL (<150) 01/20/18 12:15 Cholesterol 195 mg/dL (<200) 01/20/18 12:15 LDL Cholesterol Direct 152 mg/dL (75-193) 01/20/18 12:15 HDL Cholesterol 40 mg/dL (23-92) 01/20/18 12:15 Lipase 108 U/L (11-82) H 01/20/18 12:15 Free T4 1.12 ng/dL (0.82-1.77) 01/20/18 12:50 TSH 0.06 uIU/ml (0.34-5.60) L 01/20/18 12:15 Vancomycin Trough 27.8 ug/mL (10-20) H 01/26/18 23:00 Random Vancomycin 24.3 ug/mL (5.0-40.0) 01/28/18 04:15 - Physical Exam Vitals and I&O: Vital Signs Temp 96.7 F 01/28/18 12:00 Pulse 64 01/28/18 13:00 Resp 14 01/28/18 13:00 BP 114/59 01/28/18 13:00 Pulse Ox 100 01/28/18 13:00 Intake & Output 01/27/18 01/28/18 01/28/18 18:59 06:59 18:59 Intake Total 380 1660 140 Output Total 120 80 Balance 260 1580 140 Weight (lbs) 42.638 kg 42.638 kg 55.792 kg Intake: Intake, IV Amount 100 1100 D5-0.9NS w/KCL 20mEq 1, 1000 000 ml @ 75 mls/hr IV . [id number] [facility] Rx#:[id number] Meropenem 1 gm In Sodium 100 100 Chloride 0.9% 100 ml @ 100 mls/hr IV Q12H [facility] Rx #:[id number] Tube Feeding 30 360 140 Other 250 200 Output: Urine 120 80 Other: # Bowel Movements 2 Stool Characteristics Liquid Black Green Active Medications: Current Medications Acetaminophen (Tylenol) 650 mg PO Q4H PRN PRN Reason: MILD PAIN OR TEMP >100.4 Stop: 03/21/18 16:07 Al Hydrox/Mg Hydrox/Simethicone (Maalox) 30 ml PO Q6HR PRN PRN Reason: GI DISTRESS Stop: 03/21/18 16:28 Artificial Tears (Artificial Tears Ophth Soln) 1 drop EACH EYE Q2HR PRN PRN Reason: Dry Eye Stop: 03/27/18 09:28 Last Admin: 01/26/18 10:13 Dose: 1 drop Atorvastatin Calcium (Lipitor) 80 mg PO HS [facility] PRN Reason: Protocol Stop: 03/21/18 20:59 Last Admin: 01/27/18 20:41 Dose: 80 mg Bisacodyl (Dulcolax 10 Mg Supp) 10 mg RC DAILY PRN PRN Reason: Constipation Stop: 03/21/18 16:07 Carvedilol (Coreg) 12.5 mg PO BID [facility] Stop: 03/21/18 16:59 Last Admin: 01/28/18 08:55 Dose: 12.5 mg Chlorhexidine Gluconate (Peridex) 15 ml MM 0800,1999 [facility] Stop: 03/27/18 07:59 Last Admin: 01/28/18 08:57 Dose: 15 ml Dextrose (D50w) 50 ml IVP PRN PRN PRN Reason: HYPOGLYCEMIA Stop: 03/21/18 16:07 Diltiazem HCl (Cardizem) 60 mg PO Q6HR [facility] Stop: 03/21/18 17:59 Last Admin: 01/28/18 12:31 Dose: 60 mg Enalaprilat (Vasotec) 2.5 mg IVP Q6HR PRN PRN Reason: SBP ABOVE 160 Stop: 03/25/18 11:59 Last Admin: 01/24/18 15:13 Dose: 2.5 mg Glucagon (Glucagen) 1 mg IVP PRN PRN PRN Reason: HYPOGLYCEMIA Stop: 03/21/18 16:25 Heparin Sodium (Porcine) (Heparin) 5,000 units SUBQ Q12HR [facility] Stop: 03/22/18 20:59 Last Admin: 01/28/18 08:52 Dose: 5,000 units Meropenem 1 gm/ Sodium (Chloride) 100 mls @ 100 mls/hr IV Q12H [facility] Stop: 03/26/18 08:59 Last Admin: 01/28/18 08:55 Dose: 100 mls/hr Phenylephrine HCl 10 mg/ (Sodium Chloride) 250 mls @ 75 mls/hr IV TITR [facility]; 50 MCG/MIN PRN Reason: Protocol Stop: 03/25/18 20:14 Norepinephrine Bitartrate 4 mg (/ Sodium Chloride) 254 mls @ 15.24 mls/hr IV TITR [facility]; 4 MCG/MIN PRN Reason: Protocol Stop: 03/26/18 08:14 Last Titration: 01/27/18 00:22 Dose: 0 mcg/min, 0 mls/hr Potassium Chloride/Dextrose/Sod Cl (D5-0.9ns W/Kcl 20meq) 1,000 mls @ 75 mls/ hr IV .[id number] [facility] Stop: 03/28/18 14:06 Last Admin: 01/28/18 02:00 Dose: 125 mls/hr Insulin Aspart (Novolog Insulin Sliding Scale) 0 units SUBQ Q6HR [facility] PRN Reason: Protocol Stop: 03/27/18 00:00 Last Admin: 01/28/18 12:24 Dose: 2 units Magnesium Hydroxide (Milk Of Magnesia) 30 ml PO DAILY PRN PRN Reason: IF NO BM IN TWO DAYS Stop: 03/21/18 16:07 Megestrol Acetate (Megace) 400 mg PO BID [facility] Stop: 03/21/18 16:59 Last Admin: 01/28/18 08:55 Dose: 400 mg Metoprolol Tartrate (Lopressor) 5 mg IV Q4H PRN PRN Reason: Tachycardia Stop: 03/25/18 12:29 Miscellaneous (Vancomycin Iv Per Pharmacy) 1 ea MC PRN [facility] Stop: 03/25/18 17:59 Multivitamins/Vitamin C (Theragran) 1 tab PO DAILY [facility] Stop: 03/22/18 08:59 Last Admin: 01/28/18 08:52 Dose: 1 tab Ondansetron HCl (Zofran Odt) 4 mg PO Q6H PRN PRN Reason: Nausea / Vomiting Stop: 03/21/18 16:07 Pantoprazole Sodium (Protonix) 40 mg NG DAILY [facility] Stop: 03/28/18 16:59 Last Admin: 01/28/18 08:55 Dose: 40 mg Prednisone (Deltasone) 10 mg PO DAILY [facility] Stop: 03/22/18 08:59 Last Admin: 01/28/18 08:55 Dose: 10 mg Sodium Phosphate (Fleet Enema) 135 ml RC DAILY PRN PRN Reason: Constipation Stop: 03/21/18 16:07 Vitamin A (Vitamin A & D) 5 gm TP DAILY [facility] Stop: 03/22/18 08:59 Last Admin: 01/28/18 08:55 Dose: 5 gm General: no acute distress, well developed, well nourished HEENT: atraumatic, normocephalic, PERRLA Neck: supple, no thyromegaly Cardiovascular: S1S2, regular Lungs: clear to percussion, crackles Abdomen: soft, no tender, no distended Extremities: no cyanosis, no clubbing, no edema Neurological: other (comatose.) Skin: intact - Procedures Procedures: Procedures Procedure Code Date INSERT EMERGENCY AIRWAY 56434 01/20/18 INSERTION OF ENDOTRACHEAL AIRWAY INTO [place], VIA OPENING [id number] 01/20/18 RESPIRATORY VENTILATION, 24-96 CONSECUTIVE HOURS [id number] 01/20/18 VENT MGMT INPAT INIT DAY 74155 01/20/18 Infectious Disease Assmt/Plan - Problem List Patient Problems: All Active Problems ELEVATED WBC, LUNG INFILTRATES (Acute) - Assessment Assessment: 1. Leukocytosis. suspect sepsis. 2. Pneumonia. L lung. 3. Dementia 4. S/p CP arrest. 5. Anoxic encephalopathy. 6. VDRF. 7. Increaing creatinine. LAURENCE. oliguric. - Plan Plan: Continue vanco IV and meropenem. sepsis w/u. flagyl suspecting c diff at this high WBC count. CT abdomen/pelvis. CT brain, consult nephro, Dr Rodríguez. Nutritional Asmnt/Malnutr-PDOC - Dietary Evaluation Malnutrition Findings (Please click <Entered> for more info): Nutritional Asmnt/Malnutrition Start: 01/21/18 16: 32 Text: Status: Complete Freq: Document 01/21/18 16:32 TROYG (Rec: 01/21/18 16:48 HEN [email or web address]) Nutritional Asmnt/Malnutrition Patient General Information Nutritional Screening High Risk Consult Diagnosis left lung infiltrate Pertinent Medical Hx/Surgical Hx dementia, HTN, hyperlipidemia per ER notes, no H&P at this time Subjective Information Pt seen sleeping at time of visit, not able to wake up for lunch. Per [employer], pt only had cereal and scrambled eggs this morning, not able to chew the [place] toast d/t weakness. Current Diet Order/ Nutrition Support low cholesterol 300gm Pertinent Medications D5-0.45ns, novolog, megace, theragran, piperacillin, vit A &D Pertinent Labs 01/21 BUN 32, Glucose 180, POC 142-261 01/20 A1c 5.1, POC 127-165 Nutritional Hx/Data Height 1.6 m Height (Calculated Centimeters) 160.0 Current Weight (lbs) 37.648 kg Weight (Calculated Kilograms) 37.6 Weight (Calculated Grams) 79358.2 [place] Body Weight 115 Body Mass Index (BMI) 14.7 Weight Status Underweight GI Symptoms GI Symptoms None Last BM none Difficult in: None Skin Integrity/Comment: reddened to vagina and coccyx Current %PO Poor (25-49%) Estimated Nutritional Goals Calories/Kcals/Kg 25-30 Kcals Calculated 7948-1380 Protein g/k Protein Calculated 52 Fluid: ml 1300-1560ml (1ml/kcal) Nutritional Problem 2. Problem Problem chewing difficulty Etiology weakness, sleepy Signs/Symptoms: pt need for mech soft diet 1. Problem Problem altered nutrition related lab values Etiology hyperglycemia Signs/Symptoms: Glucose 180, POC 127-261 Intervention/Recommendation Comments 1. Recommend Mech soft ground diet with Boost BID to increase nutrition intake. 2. Monitor PO intake, wt, labs and skin integrity 3. F/U as high risk in 2-3 days, 01/23-01/24 Expected Outcomes/Goals Expected Outcomes/Goals 1. PO intake to meet at least 75% of nutritional needs. 2. Wt stability, skin to remain intact, labs to approach WNL.
--- NOTE | 2018-01-28 15:56 | Diagnostic Imaging Report ---
CT scan of the brain without intravenous contrast HISTORY: Stroke, CVA Total DLP equals 620 CTDI equals 35.8 Axial sections were obtained from the base of the skull to the vertex. There is prominence/enlargement of the ventricular system size. Associated enlargement of cerebral sulci and subarachnoid cisterns. Findings are consistent with changes of generalized cerebral atrophy. No acute parenchymal abnormalities. No acute cerebral hemorrhage. Extensive severe is seen within the supratentorial white matter regions without mass effect. The findings may be associated with chronic small vessel ischemic disease. Somewhat more focal hypodensity noted in the right basal ganglia region. Changes associated with an old infarct cannot be excluded. No extra-axial masses or abnormal fluid collections. Mucosal thickening noted within the right and to lesser degree left sphenoid sinus regions. Endotracheal tube and nasogastric tube seen. IMPRESSION: 1. No acute focal abnormalities 2. Cerebral atrophy 3. Extensive supratentorial white matter changes that may reflect chronic small vessel ischemic disease. Somewhat more focal hypodensity noted in the right basal ganglia region that may be associated with changes of an old infarct. 4. Mucosal thickening within the sphenoid sinus regions.
--- NOTE | 2018-01-28 16:03 | Diagnostic Imaging Report ---
CT scan abdomen and pelvis without intravenous contrast HISTORY: Leukocytosis Total DLP equals 315 CTDI equals 8.3 Axial sections were obtained from the xiphoid process down to the pubic symphysis. Limited sections the lower chest demonstrate small bilateral pleural effusions. Evaluation of the abdomen demonstrates a small amount of diffuse ascites throughout the abdomen and pelvis. There are several very small (less than 5 mm) loculated collections of air noted along the upper most anterior abdominal wall. Exact etiology is uncertain. The liver exhibits a slight decrease in size with mild irregularity. The findings should be correlated with liver function tests. No focal lesions. The spleen appears normal. Suboptimal delineation of the pancreatic margins. No definite focal abnormalities are seen. No focal renal lesions. A calculi. No hydronephrosis. Atherosclerotic calcification seen in the aorta and iliac artery regions. The exam of the pelvis demonstrates small to moderate free fluid. No discrete abnormal soft tissue masses are seen. Haziness noted throughout the subcutaneous tissues of the abdomen and pelvis consistent with anasarca. IMPRESSION: 1. Mild diffuse ascites throughout the abdomen and pelvis 2. Mild irregularity in the hepatic contour. The significance should be correlated with liver function tests. 3. No discrete abnormal soft tissue masses seen within the abdomen or pelvis 4. Anasarca 5. Several very small (less than 5 mm) loculated air collections along the upper most portion of the anterior abdominal wall. Exact etiology is uncertain. (Has the patient had any recent percutaneous or surgical procedures?). Follow-up recommended.
[2018-01-28 17:36] LABS: URINE MICROSCOPIC INDICATED? YES; URINE SOURCE FOLEY PORT
[2018-01-28 17:40] LABS: URINE BILIRUBIN NEGATIVE (NEGATIVE); URINE GLUCOSE (UA) NEGATIVE (NEGATIVE); URINE KETONE NEGATIVE (NEGATIVE); URINE LEUKOCYTE ESTERASE MODERATE (NEGATIVE); URINE NITRATE NEGATIVE (NEGATIVE); URINE PROTEIN 100 mg/dL (NEGATIVE); URINE UROBILINOGEN 0.2 E.U./dL (0.2 - 1.0)
[2018-01-28 17:48] LABS: URINE COLOR YELLOW
[2018-01-28 17:50] LABS: URINE BLOOD MODERATE (NEGATIVE); URINE CLARITY CLOUDY (CLEAR)
[2018-01-28 17:55] LABS: URINE BACTERIA OCCASIONAL /hpf (NONE SEEN); URINE EPITHELIAL CELLS OCCASIONAL /lpf (FEW)
[2018-01-28 17:56] LABS: URINE YEAST MANY /hpf (NONE SEEN)
[2018-01-28 18:22] LABS: EOSINOPHIL SMEAR SOURCE URINE; EOSINOPHILS SMEAR COUNT NONE SEEN (NONE SEEN)
[2018-01-29] MEDS: INSULIN ASPART SLIDING SCALE 100 UNITS/ML UNIT SUBQ SCH ×4 (00:22→17:49)
--- NOTE | 2018-01-29 00:40 | Progress Notes ---
DATE: UROLOGY FOLLOWUP SUBJECTIVE: The patient has deteriorated further with worsening white count; however, she is maintaining the blood pressure without any vasopressors. She had a CT scan of abdomen and head for more evaluation, but we do not have very good answers. She remains almost comatose, not responding to painful stimuli either. On exam, temperature 96.6, heart rate 60, blood pressure 117/55 without any support. She remains on the ventilator at FIO2 of 40. Abdomen is somewhat distended and difficult to assess, legs edematous, Regalado catheter very little urine. LABORATORY DATA: White count 45.2 and hemoglobin 9.3. BUN 36 and creatinine 1.9. She remains on meropenem for the antibiotics. A CT of the abdomen and pelvis showed a diffuse ascites, irregular hepatic contour, anasarca, small loculated air collection along the anterior abdominal wall and head CT was not diagnostic. IMPRESSION: Septic shock and respiratory failure deteriorating rapidly, not responding to therapy. Pneumonia, decubiti, and oliguria with renal insufficiency or additional comorbidities indicating very poor prognosis. [facility]# [id number]
[2018-01-29] MEDS: Albuterol/Ipratropium Neb 3 ML AERS HHN SCH ×4 (01:08→19:24)
[2018-01-29] MEDS: Diltiazem 30 mg Tab PO SCH ×4 (02:23→17:48)
--- NOTE | 2018-01-29 02:26 | Consultation ---
DATE OF CONSULTATION: 01/28/2018 REASON FOR CONSULTATION: Worsening kidney function, electrolyte imbalance, and fluid management. HISTORY OF PRESENT ILLNESS: This is an 82-year-old female with past medical history of essential hypertension, who was brought in because of possible bilateral healthcare-acquired pneumonia. The patient was admitted last 01/19 due to possible bilateral healthcare-acquired pneumonia. She was followed by Pulmonary for this as well as for her respiratory failure. She was initially on nasal cannula and was placed on BiPAP. She was also evaluated by Infectious Disease. Her Zosyn was maintained. 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 She required intubation and now on a ventilator. She was admitted with a BUN/creatinine of 34/0.8. Regalado was placed by Urology due to difficulty inserting the Regalado. She continued to be oliguric since then. Her BUN/creatinine today were 36/1.9. She did not have any nausea and vomiting as well as diarrhea and continued to be on feedings as well as IV fluids. PAST MEDICAL HISTORY: 1. Chronic obstructive pulmonary disease. 2. Paroxysmal atrial fibrillation. 3. Anemia of chronic disease. 4. Alzheimer dementia. 5. Dyslipidemia. 6. Essential hypertension. CURRENT MEDICATIONS: She is currently on acetaminophen, atorvastatin, carvedilol, diltiazem, magnesium hydroxide, megestrol, meropenem, multivitamins, pantoprazole, prednisone, and vancomycin. ALLERGIES: No known drug allergies. SOCIAL AND FAMILY HISTORY: I was not able to obtain from the patient because she is on a ventilator. REVIEW OF SYSTEMS: Again, I was not able to decipher directly from the patient because of the above reasons. PHYSICAL EXAMINATION: GENERAL: The patient is obtunded on a ventilator, not in any distress. VITAL SIGNS: Her blood pressure now is 104/46, pulse 61, afebrile. SKIN: Very poor turgor, warm, no rash, no jaundice appreciated. HEENT: Head normocephalic, atraumatic. Eyes: Unable to assess her extraocular muscles, also unable to assess her pupils due to upward gaze of both eyes. She has pale conjunctivae. Nose, midline nasal septum. Mouth: Dry mucosa. Presence of an endotracheal tube. NECK: Supple, no adenopathy, no thyromegaly, no bruits. Trachea palpated in the midline. CHEST AND CARDIOVASCULAR: S1, S2. No rub, murmur, or gallop appreciated. Point of maximal impulse fifth intercostal space, left midclavicular line. No abdominal or femoral bruits appreciated. LUNGS: Equal expansion. No use of accessory muscles. No supraclavicular retractions. Decreased breath sounds, few rhonchi, but no rales nor wheezes appreciated. BREASTS: Symmetrical, without any discharge. ABDOMEN: Quite tense, markedly diminished bowel sounds. Some tenderness on palpation. No bruits either diastolic or systolic. GENITOURINARY: Normal appearing female genitalia with indwelling Regalado catheter. MUSCULOSKELETAL: No effusions present in her joints, but unable to assess her range of motion. EXTREMITIES: She has some mild I would say +1 bipedal edema, but no cyanosis nor clubbing. NEUROLOGIC: As mentioned, the patient is stuporous, unable to follow my neuro commands, so I was unable to pursue further by neuro exam. LABORATORY DATA: Did reveal white count 45.2, hemoglobin 9.3, hematocrit 27.3, platelets 208, and bands 13%. Sodium is 132, potassium 4.2, chloride 108, bicarbonate 17, BUN 36, creatinine 1.9, glucose 170, and calcium 7.1. IMPRESSION: 1. Acute kidney injury. The patient suddenly developed hypotension. She also possibly did not receive adequate hydration even though she has been receiving IV fluids. She came in with dehydration, which may have persisted throughout her hospital stay. Physical exam supported this concept. Her dehydration lead to development of prerenal azotemia, which may have progressed to acute tubular injury. She has also ongoing septicemia and may eventually develop an acute interstitial nephritis as a consequence. 2. Sepsis, etiology at this point is unknown, but possibly intra-abdominal because of abnormal examination of her abdomen. 3. Bilateral chronic lung infiltrates, does not look acute in nature. 4. Respiratory failure due to chronic obstructive pulmonary disease on a ventilator. 5. Paroxysmal atrial fibrillation. 6. Anemia of chronic disease. 7. Leukocytosis, which could possibly be due to sepsis, etiology at this point is unknown, but possibly intra-abdominal because of abnormal examination of her abdomen. 8. Non-gap metabolic acidosis. 9. Paroxysmal atrial fibrillation. 10. Dyslipidemia. 11. Alzheimer dementia. 12. Essential hypertension. PLAN: 1. Urinalysis. 2. Urine spot sodium, eosinophils, and creatinine. 3. Urine microalbumin to creatinine ratio. 4. Follow up abdominal/pelvic CT scan. 5. Continue with IV fluids for now. 6. Continue to follow up cultures. 7. Maintain antibiotics. [facility]# [id number]
[2018-01-29 05:23] LABS: HEMATOCRIT 24.4 % (41.0-60); HEMOGLOBIN 8.2 gm/dL (12-16); MANUAL DIFF REQUIRED? YES; MEAN CELL VOLUME 90.2 fl (81-100); MEAN CORPUSCULAR HEMOGLOBIN 30.4 pg (27.0-31.0); MEAN CORPUSCULAR HGB CONC 33.7 pg (28.0-36.0); MEAN PLATELET VOLUME 8.6 fl; PLATELET COUNT 223 Th/cmm (150-400); RED CELL DISTRIBUTION WIDTH 17.7 % (11.5-20.0)
[2018-01-29 05:25] LABS: WHITE BLOOD COUNT 36.2 Th/cmm (4.8-10.8)
[2018-01-29 06:09] LABS: BAND NEUTROPHILE 11 % (0-10); LYMPHOCYTE 9 % (20-50); MONOCYTE 3 % (2-10); NEUTROPHILS 77 % (40-80); TOTAL CELLS COUNTED 100
[2018-01-29 06:10] LABS: ALB/GLOB RATIO 0.8 (1.0-1.8); ALBUMIN 1.6 gm/dL (3.7-5.3); ALKALINE PHOSPHATASE 105 U/L (34-104); ANION GAP 10.3 (7.0-16.0); BILIRUBIN,TOTAL 0.3 mg/dL (0.3-1.0); BUN - UREA NITROGEN 44 mg/dL (7-25); CALCIUM SERUM 6.5 mg/dL (8.6-10.3); CARBON DIOXIDE 12.7 mEq/L (21.0-31.0); CHLORIDE 112 mEq/L (98-107); CREATININE - SERUM 2.1 mg/dL (0.6-1.2); GLUCOSE 148 mg/dL (70-105); MAGNESIUM 1.6 mg/dL (1.9-2.7); PHOSPHOROUS 1.9 mg/dL (2.5-5.0); SGOT 54 U/L (13-39); SGPT/ALT 93 U/L (7-52); SODIUM SERUM 130 mEq/L (136-145); TOTAL PROTEIN,SERUM 3.7 gm/dL (6.0-8.3); URIC ACID 4.8 mg/dL (2.3-6.6)
[2018-01-29] MEDS: Chlorhexidine Gluconate 0.12% 15mL Mouthwash MM SCH (08:00)
[2018-01-29] MEDS: Pantoprazole 40 mg/Packet NG SCH (08:10)
[2018-01-29] MEDS: Multivitamin Tab PO SCH (08:10)
[2018-01-29] MEDS: Meropenem 1 GM in Sodium Chloride 0.9% 100 ML IV SCH ×2 (09:29→21:20)
[2018-01-29] MEDS: Vitamin A/Vitamin D 5 gm Packet TP SCH (12:14)
[2018-01-29] MEDS: D5-0.9NS w/KCL 20mEq 1,000 ML IV SCH (12:54)
--- NOTE | 2018-01-29 13:49 | General Progress Note ---
Subjective - Review of Systems Service Date: 01/29/18 Subjective: barely responsive Objective - Results Result Diagrams: 01/29/18 05:10 01/29/18 05:10 Recent Labs: Laboratory Last Values WBC 36.2 Th/cmm (4.8-10.8) H* 01/29/18 05:10 RBC 2.70 Mil/cmm (3.80-5.20) L 01/29/18 05:10 Hgb 8.2 gm/dL (12-16) L 01/29/18 05:10 Hct 24.4 % (41.0-60) L 01/29/18 05:10 MCV 90.2 fl (81-100) 01/29/18 05:10 MCH 30.4 pg (27.0-31.0) 01/29/18 05:10 MCHC Differential 33.7 pg (28.0-36.0) 01/29/18 05:10 RDW 17.7 % (11.5-20.0) 01/29/18 05:10 Plt Count 223 Th/cmm (150-400) 01/29/18 05:10 MPV 8.6 fl 01/29/18 05:10 Neutrophils % 86.6 % (40.0-80.0) H 01/23/18 06:00 Band Neutrophils % 11 % (0-10) H 01/29/18 05:10 Lymphocytes % 5.3 % (20.0-50.0) L 01/23/18 06:00 Monocytes % 7.6 % (2.0-10.0) 01/23/18 06:00 Eosinophils % 0.5 % (0.0-5.0) 01/23/18 06:00 Basophils % 0.0 % (0.0-2.0) 01/23/18 06:00 Neutrophils (Manual) 77 % (40-80) 01/29/18 05:10 Lymphocytes 9 % (20-50) L 01/29/18 05:10 Monocytes 3 % (2-10) 01/29/18 05:10 Eosinophils 0 % (0-5) 01/27/18 04:58 Basophils 0 % (0-3) 01/27/18 04:58 Platelet Estimate ADEQUATE (NORMAL) 01/27/18 04:58 Platelet Morphology NORMAL (NORMAL) 01/27/18 04:58 RBC Morph Micro Appear NORMAL (NORMAL) 01/27/18 04:58 Eos Smear Source URINE 01/28/18 17:10 Eos Smear Total Cells NONE SEEN (NONE SEEN) 01/28/18 17:10 Specimen Source Arterial 01/24/18 17:45 Sample Site Left Radial 01/24/18 17:45 pH 7.41 (7.35-7.45) 01/24/18 17:45 pCO2 32.0 mmHg (35.0-45.0) L 01/24/18 17:45 pO2 397.0 mmHg (80.0-100.0) H 01/24/18 17:45 HCO3 22.3 mEq/L (20.0-26.0) 01/24/18 17:45 Base Excess -3.5 mEq/L (-3.0-3.0) L 01/24/18 17:45 O2 Saturation 100.0 % (92.0-100.0) 01/24/18 17:45 Bebo Test YES 01/24/18 17:45 Vent Rate 14 01/24/18 17:45 Inspired O2 100 01/24/18 17:45 Tidal Volume 450 01/24/18 17:45 PEEP 5 01/24/18 17:45 Pressure (ins/psv/peep) NA 01/24/18 17:45 Critical Value E.BRIDGES 01/24/18 17:45 Sodium 130 mEq/L (136-145) L 01/29/18 05:10 Potassium 5.0 mEq/L (3.5-5.1) 01/29/18 05:10 Chloride 112 mEq/L (98-107) H 01/29/18 05:10 Carbon Dioxide 12.7 mEq/L (21.0-31.0) L 01/29/18 05:10 Anion Gap 10.3 (7.0-16.0) 01/29/18 05:10 BUN 44 mg/dL (7-25) H 01/29/18 05:10 Creatinine 2.1 mg/dL (0.6-1.2) H 01/29/18 05:10 Est GFR ( Amer) TNP 01/29/18 05:10 Est GFR (Non-Af Amer) TNP 01/29/18 05:10 BUN/Creatinine Ratio 21.0 01/29/18 05:10 Glucose 148 mg/dL (70-105) H 01/29/18 05:10 POC Glucose 152 MG/DL (70 - 105) H 01/29/18 11:39 Hemoglobin A1c % 5.1 % (4.0-6.0) 01/20/18 12:15 Whole Bld Lactic Acid 1.50 mmol/L (0.60-1.99) 01/28/18 13:40 Uric Acid 4.8 mg/dL (2.3-6.6) 01/29/18 05:10 Calcium 6.5 mg/dL (8.6-10.3) L 01/29/18 05:10 Phosphorus 1.9 mg/dL (2.5-5.0) L 01/29/18 05:10 Magnesium 1.6 mg/dL (1.9-2.7) L 01/29/18 05:10 Iron 54 ug/dL (27-139) 01/20/18 12:50 TIBC 159 ug/dL (250-450) L 01/20/18 12:50 Iron Saturation 34 % (15-55) 01/20/18 12:50 Unsaturated IBC 105 ug/dL (118-369) L 01/20/18 12:50 Ferritin 1230 ng/mL (15-150) H 01/20/18 12:50 Total Bilirubin 0.3 mg/dL (0.3-1.0) 01/29/18 05:10 Direct Bilirubin 0.07 mg/dL (0.0-0.2) 01/20/18 12:30 AST 54 U/L (13-39) H 01/29/18 05:10 ALT 93 U/L (7-52) H 01/29/18 05:10 Alkaline Phosphatase 105 U/L (34-104) H 01/29/18 05:10 Troponin I 0.03 ng/mL (0.01-0.05) 01/20/18 12:15 C-Reactive Protein 4.3 mg/dL (0.0-0.9) H 01/20/18 12:50 B-Natriuretic Peptide 185.0 pg/mL (5.0-100.0) H 01/25/18 04:20 Total Protein 3.7 gm/dL (6.0-8.3) L 01/29/18 05:10 Albumin 1.6 gm/dL (3.7-5.3) L 01/29/18 05:10 Globulin 2.1 gm/dL 01/29/18 05:10 Albumin/Globulin Ratio 0.8 (1.0-1.8) L 01/29/18 05:10 Triglycerides 97 mg/dL (<150) 01/20/18 12:15 Cholesterol 195 mg/dL (<200) 01/20/18 12:15 LDL Cholesterol Direct 152 mg/dL (75-193) 01/20/18 12:15 HDL Cholesterol 40 mg/dL (23-92) 01/20/18 12:15 Lipase 108 U/L (11-82) H 01/20/18 12:15 Free T4 1.12 ng/dL (0.82-1.77) 01/20/18 12:50 TSH 0.06 uIU/ml (0.34-5.60) L 01/20/18 12:15 Urine Source [place] 01/28/18 17:10 Urine Color YELLOW 01/28/18 17:10 Urine Clarity CLOUDY (CLEAR) H 01/28/18 17:10 Urine pH 6.0 (4.6 - 8.0) 01/28/18 17:10 Ur Specific [place] 1.020 (1.005-1.030) 01/28/18 17:10 Urine Protein 100 mg/dL (NEGATIVE) H 01/28/18 17:10 Urine Glucose (UA) NEGATIVE mg/dL (NEGATIVE) 01/28/18 17:10 Urine Ketones NEGATIVE mg/dL (NEGATIVE) 01/28/18 17:10 Urine Blood MODERATE (NEGATIVE) H 01/28/18 17:10 Urine Nitrate NEGATIVE (NEGATIVE) 01/28/18 17:10 Urine Bilirubin NEGATIVE (NEGATIVE) 01/28/18 17:10 Urine Urobilinogen 0.2 E.U./dL (0.2 - 1.0) 01/28/18 17:10 Ur Leukocyte Esterase MODERATE (NEGATIVE) H 01/28/18 17:10 Urine RBC 5-10 /hpf (0-5) H 01/28/18 17:10 Urine WBC 10-25 /hpf (0-5) H 01/28/18 17:10 Ur Epithelial Cells OCCASIONAL /lpf (FEW) 01/28/18 17:10 Urine Bacteria OCCASIONAL /hpf (NONE SEEN) 01/28/18 17:10 Urine Yeast MANY /hpf (NONE SEEN) H 01/28/18 17:10 Ur Random Sodium 56 mmol/L 01/28/18 17:10 Urine Creatinine 39.0 mg/dl (28.0-217.0) 01/28/18 17:10 Vancomycin Trough 27.8 ug/mL (10-20) H 01/26/18 23:00 Random Vancomycin 23.7 ug/mL (5.0-40.0) 01/29/18 05:10 - Physical Exam Vitals and I&O: Vital Signs Temp 96 F 01/29/18 12:00 Pulse 68 01/29/18 13:27 Resp 14 01/29/18 12:00 BP 100/52 01/29/18 12:00 Pulse Ox 100 01/29/18 13:27 Intake & Output 01/28/18 01/29/18 01/29/18 18:59 06:59 18:59 Intake Total 1240 1560 100 Output Total 50 Balance 1240 1510 100 Weight (lbs) 55.792 kg 56.518 kg Intake: Intake, IV Amount 1100 1100 100 D5-0.9NS w/KCL 20mEq 1, 1000 1000 000 ml @ 75 mls/hr IV . [id number] [facility] Rx#:[id number] Meropenem 1 gm In Sodium 100 100 100 Chloride 0.9% 100 ml @ 100 mls/hr IV Q12H [facility] Rx #:[id number] Oral 0 Tube Feeding 140 460 Output: Urine 50 Other: # Bowel Movements 2 Active Medications: Current Medications Acetaminophen (Tylenol) 650 mg PO Q4H PRN PRN Reason: MILD PAIN OR TEMP >100.4 Stop: 03/21/18 16:07 Al Hydrox/Mg Hydrox/Simethicone (Maalox) 30 ml PO Q6HR PRN PRN Reason: GI DISTRESS Stop: 03/21/18 16:28 Albuterol/Ipratropium (Duoneb Neb) 3 ml HHN Q6HRT [facility] Stop: 03/30/18 00:59 Last Admin: 01/29/18 13:21 Dose: 3 ml Artificial Tears (Artificial Tears Ophth Soln) 1 drop EACH EYE Q2HR PRN PRN Reason: Dry Eye Stop: 03/27/18 09:28 Last Admin: 01/26/18 10:13 Dose: 1 drop Atorvastatin Calcium (Lipitor) 80 mg PO HS [facility] PRN Reason: Protocol Stop: 03/21/18 20:59 Last Admin: 01/28/18 20:32 Dose: 80 mg Bisacodyl (Dulcolax 10 Mg Supp) 10 mg RC DAILY PRN PRN Reason: Constipation Stop: 03/21/18 16:07 Carvedilol (Coreg) 12.5 mg PO BID [facility] Stop: 03/21/18 16:59 Last Admin: 01/29/18 08:10 Dose: 12.5 mg Chlorhexidine Gluconate (Peridex) 15 ml MM 0800,2000 [facility] Stop: 03/27/18 07:59 Last Admin: 01/29/18 08:00 Dose: 15 ml Dextrose (D50w) 50 ml IVP PRN PRN PRN Reason: HYPOGLYCEMIA Stop: 03/21/18 16:07 Diltiazem HCl (Cardizem) 60 mg PO Q6HR [facility] Stop: 03/21/18 17:59 Last Admin: 01/29/18 12:10 Dose: 60 mg Enalaprilat (Vasotec) 2.5 mg IVP Q6HR PRN PRN Reason: SBP ABOVE 160 Stop: 03/25/18 11:59 Last Admin: 01/24/18 15:13 Dose: 2.5 mg Glucagon (Glucagen) 1 mg IVP PRN PRN PRN Reason: HYPOGLYCEMIA Stop: 03/21/18 16:25 Meropenem 1 gm/ Sodium (Chloride) 100 mls @ 100 mls/hr IV Q12H [facility] Stop: 03/26/18 08:59 Last Infusion: 01/29/18 10:30 Dose: Infused Phenylephrine HCl 10 mg/ (Sodium Chloride) 250 mls @ 75 mls/hr IV TITR [facility]; 50 MCG/MIN PRN Reason: Protocol Stop: 03/25/18 20:14 Norepinephrine Bitartrate 4 mg (/ Sodium Chloride) 254 mls @ 15.24 mls/hr IV TITR [facility]; 4 MCG/MIN PRN Reason: Protocol Stop: 03/26/18 08:14 Last Titration: 01/27/18 00:22 Dose: 0 mcg/min, 0 mls/hr Potassium Chloride/Dextrose/Sod Cl (D5-0.9ns W/Kcl 20meq) 1,000 mls @ 75 mls/ hr IV .[id number] [facility] Stop: 03/28/18 14:06 Last Admin: 01/29/18 12:54 Dose: 125 mls/hr Insulin Aspart (Novolog Insulin Sliding Scale) 0 units SUBQ Q6HR [facility] PRN Reason: Protocol Stop: 03/27/18 00:00 Last Admin: 01/29/18 12:09 Dose: 2 units Magnesium Hydroxide (Milk Of Magnesia) 30 ml PO DAILY PRN PRN Reason: IF NO BM IN TWO DAYS Stop: 03/21/18 16:07 Megestrol Acetate (Megace) 400 mg PO BID [facility] Stop: 03/21/18 16:59 Last Admin: 01/29/18 08:10 Dose: 400 mg Metoprolol Tartrate (Lopressor) 5 mg IV Q4H PRN PRN Reason: Tachycardia Stop: 03/25/18 12:29 Miscellaneous (Vancomycin Iv Per Pharmacy) 1 ea MC PRN [facility] Stop: 03/25/18 17:59 Multivitamins/Vitamin C (Theragran) 1 tab PO DAILY [facility] Stop: 03/22/18 08:59 Last Admin: 01/29/18 08:10 Dose: 1 tab Ondansetron HCl (Zofran Odt) 4 mg PO Q6H PRN PRN Reason: Nausea / Vomiting Stop: 03/21/18 16:07 Pantoprazole Sodium (Protonix) 40 mg NG DAILY [facility] Stop: 03/28/18 16:59 Last Admin: 01/29/18 08:10 Dose: 40 mg Prednisone (Deltasone) 10 mg PO DAILY [facility] Stop: 03/22/18 08:59 Last Admin: 01/29/18 08:10 Dose: 10 mg Sodium Bicarbonate (Sodium Bicarbonate) 650 mg PO BID [facility] PRN Reason: Protocol Stop: 03/29/18 16:59 Last Admin: 01/29/18 08:10 Dose: 650 mg Sodium Phosphate (Fleet Enema) 135 ml RC DAILY PRN PRN Reason: Constipation Stop: 03/21/18 16:07 Vitamin A (Vitamin A & D) 5 gm TP DAILY [facility] Stop: 03/22/18 08:59 Last Admin: 01/29/18 12:14 Dose: 5 gm General: Other (obtunded) HEENT: Atraumatic Neck: Supple, +2 carotid pulse wo bruit Cardiovascular: Regular rate, Normal S1, Normal S2 Lungs: Other (decreased BS) Abdomen: Bowel sounds, Soft Extremities: Edema Neurological: Sensation intact Skin: no Rash Psych/Mental Status: Other (obtunded) - Procedures Procedures: Procedures Procedure Code Date INSERT EMERGENCY AIRWAY 41424 01/20/18 INSERTION OF ENDOTRACHEAL AIRWAY INTO [place], VIA OPENING [id number] 01/20/18 RESPIRATORY VENTILATION, GREATER THAN 96 CONSECUTIVE HOURS [id number] 01/20/18 VENT MGMT INPAT INIT DAY [id number] 01/20/18 Assessment/Plan - Problem List Patient Problems: All Active Problems ELEVATED WBC, LUNG INFILTRATES (Acute) - Assessment Assessment: LAURENCE Cortical injury Sepsis B/L Chronic Lung Infiltrates Acute Resp Failure 2/2 Copd P. A. Fib Anemia of CD non Gap met acid yeast UTI - Plan Plan: Lab - Result Diagrams 01/29/18 05:10 01/29/18 05:10 Current Medications Acetaminophen (Tylenol) 650 mg PO Q4H PRN PRN Reason: MILD PAIN OR TEMP >100.4 Stop: 03/21/18 16:07 Al Hydrox/Mg Hydrox/Simethicone (Maalox) 30 ml PO Q6HR PRN PRN Reason: GI DISTRESS Stop: 03/21/18 16:28 Albuterol/Ipratropium (Duoneb Neb) 3 ml HHN Q6HRT [facility] Stop: 03/30/18 00:59 Last Admin: 01/29/18 13:21 Dose: 3 ml Artificial Tears (Artificial Tears Ophth Soln) 1 drop EACH EYE Q2HR PRN PRN Reason: Dry Eye Stop: 03/27/18 09:28 Last Admin: 01/26/18 10:13 Dose: 1 drop Atorvastatin Calcium (Lipitor) 80 mg PO HS [facility] PRN Reason: Protocol Stop: 03/21/18 20:59 Last Admin: 01/28/18 20:32 Dose: 80 mg Bisacodyl (Dulcolax 10 Mg Supp) 10 mg RC DAILY PRN PRN Reason: Constipation Stop: 03/21/18 16:07 Carvedilol (Coreg) 12.5 mg PO BID [facility] Stop: 03/21/18 16:59 Last Admin: 01/29/18 08:10 Dose: 12.5 mg Chlorhexidine Gluconate (Peridex) 15 ml MM 08,1999 [facility] Stop: 03/27/18 07:59 Last Admin: 01/29/18 08:00 Dose: 15 ml Dextrose (D50w) 50 ml IVP PRN PRN PRN Reason: HYPOGLYCEMIA Stop: 03/21/18 16:07 Diltiazem HCl (Cardizem) 60 mg PO Q6HR [facility] Stop: 03/21/18 17:59 Last Admin: 01/29/18 12:10 Dose: 60 mg Enalaprilat (Vasotec) 2.5 mg IVP Q6HR PRN PRN Reason: SBP ABOVE 160 Stop: 03/25/18 11:59 Last Admin: 01/24/18 15:13 Dose: 2.5 mg Glucagon (Glucagen) 1 mg IVP PRN PRN PRN Reason: HYPOGLYCEMIA Stop: 03/21/18 16:25 Meropenem 1 gm/ Sodium (Chloride) 100 mls @ 100 mls/hr IV Q12H [facility] Stop: 03/26/18 08:59 Last Infusion: 01/29/18 10:30 Dose: Infused Phenylephrine HCl 10 mg/ (Sodium Chloride) 250 mls @ 75 mls/hr IV TITR [facility]; 50 MCG/MIN PRN Reason: Protocol Stop: 03/25/18 20:14 Norepinephrine Bitartrate 4 mg (/ Sodium Chloride) 254 mls @ 15.24 mls/hr IV TITR [facility]; 4 MCG/MIN PRN Reason: Protocol Stop: 03/26/18 08:14 Last Titration: 01/27/18 00:22 Dose: 0 mcg/min, 0 mls/hr Potassium Chloride/Dextrose/Sod Cl (D5-0.9ns W/Kcl 20meq) 1,000 mls @ 75 mls/ hr IV .[id number] [facility] Stop: 03/28/18 14:06 Last Admin: 01/29/18 12:54 Dose: 125 mls/hr Insulin Aspart (Novolog Insulin Sliding Scale) 0 units SUBQ Q6HR [facility] PRN Reason: Protocol Stop: 03/27/18 00:00 Last Admin: 01/29/18 12:09 Dose: 2 units Magnesium Hydroxide (Milk Of Magnesia) 30 ml PO DAILY PRN PRN Reason: IF NO BM IN TWO DAYS Stop: 03/21/18 16:07 Megestrol Acetate (Megace) 400 mg PO BID [facility] Stop: 03/21/18 16:59 Last Admin: 01/29/18 08:10 Dose: 400 mg Metoprolol Tartrate (Lopressor) 5 mg IV Q4H PRN PRN Reason: Tachycardia Stop: 03/25/18 12:29 Miscellaneous (Vancomycin Iv Per Pharmacy) 1 ea MC PRN [facility] Stop: 03/25/18 17:59 Multivitamins/Vitamin C (Theragran) 1 tab PO DAILY [facility] Stop: 03/22/18 08:59 Last Admin: 01/29/18 08:10 Dose: 1 tab Ondansetron HCl (Zofran Odt) 4 mg PO Q6H PRN PRN Reason: Nausea / Vomiting Stop: 03/21/18 16:07 Pantoprazole Sodium (Protonix) 40 mg NG DAILY [facility] Stop: 03/28/18 16:59 Last Admin: 01/29/18 08:10 Dose: 40 mg Prednisone (Deltasone) 10 mg PO DAILY [facility] Stop: 03/22/18 08:59 Last Admin: 01/29/18 08:10 Dose: 10 mg Sodium Bicarbonate (Sodium Bicarbonate) 650 mg PO BID [facility] PRN Reason: Protocol Stop: 03/29/18 16:59 Last Admin: 01/29/18 08:10 Dose: 650 mg Sodium Phosphate (Fleet Enema) 135 ml RC DAILY PRN PRN Reason: Constipation Stop: 03/21/18 16:07 Vitamin A (Vitamin A & D) 5 gm TP DAILY [facility] Stop: 03/22/18 08:59 Last Admin: 01/29/18 12:14 Dose: 5 gm Lab - Result Diagrams 01/29/18 05:10 01/29/18 05:10 kidney fnc worse, now anuric retaining fluid decrease IVF & DC K replace Ca, P04, Mg start Diflucan on top of Meropenem may need dialysis WBC down to 36 administer [id number] Nutritional Asmnt/Malnutr-PDOC - Dietary Evaluation Malnutrition Findings (Please click <Entered> for more info): Nutritional Asmnt/Malnutrition Start: 01/21/18 16: 32 Text: Status: Complete Freq: Document 01/21/18 16:32 LCHENG (Rec: 01/21/18 16:48 [email or web address] [email or web address]) Nutritional Asmnt/Malnutrition Patient General Information Nutritional Screening High Risk Consult Diagnosis left lung infiltrate Pertinent Medical Hx/Surgical Hx dementia, HTN, hyperlipidemia per ER notes, no H&P at this time Subjective Information Pt seen sleeping at time of visit, not able to wake up for lunch. Per [employer], pt only had cereal and scrambled eggs this morning, not able to chew the [place] toast d/t weakness. Current Diet Order/ Nutrition Support low cholesterol 300gm Pertinent Medications D5-0.45ns, novolog, megace, theragran, piperacillin, vit A &D Pertinent Labs 01/21 BUN 32, Glucose 180, POC 142-261 01/20 A1c 5.1, POC 127-165 Nutritional Hx/Data Height 1.6 m Height (Calculated Centimeters) 160.0 Current Weight (lbs) 37.648 kg Weight (Calculated Kilograms) 37.6 Weight (Calculated Grams) 00335.2 [place] Body Weight 115 Body Mass Index (BMI) 14.7 Weight Status Underweight GI Symptoms GI Symptoms None Last BM none Difficult in: None Skin Integrity/Comment: reddened to vagina and coccyx Current %PO Poor (25-49%) Estimated Nutritional Goals Calories/Kcals/Kg 25-30 Kcals Calculated [id number] Protein g/k Protein Calculated 52 Fluid: ml 1300-1560ml (1ml/kcal) Nutritional Problem 2. Problem Problem chewing difficulty Etiology weakness, sleepy Signs/Symptoms: pt need for mech soft diet 1. Problem Problem altered nutrition related lab values Etiology hyperglycemia Signs/Symptoms: Glucose 180, POC 127-261 Intervention/Recommendation Comments 1. Recommend Mech soft ground diet with Boost BID to increase nutrition intake. 2. Monitor PO intake, wt, labs and skin integrity 3. F/U as high risk in 2-3 days, 01/23-01/24 Expected Outcomes/Goals Expected Outcomes/Goals 1. PO intake to meet at least 75% of nutritional needs. 2. Wt stability, skin to remain intact, labs to approach WNL.
[2018-01-29] MEDS ORDERED: Sodium Bicarbonate 8.4% 50mEq PFS IVP ONE (14:06)
[2018-01-29] MEDS ORDERED: Mag Sulfate 2gm/50mL Premix 2 GM/50 ML BAG IV ONE (14:08)
[2018-01-29] MEDS ORDERED: D5-0.9%NS 1,000 ML IV SCH (14:10)
[2018-01-29] MEDS ORDERED: Calcium Gluconate 2 GM in Sodium Chloride 0.9% 100 ML IV ONE (14:30)
[2018-01-29] MEDS ORDERED: Sodium Phosphate 20 MMOLE in Sodium Chloride 0.9% 250 ML IV ONE (15:00)
--- NOTE | 2018-01-29 16:18 | Internal Medicine Prog Note ---
Internal Medicine Subjective - Subjective Service Date: 01/29/18 (remains orally intubated on vent) Patient is:: awake Per staff patient has:: tolerating meds Internal Medicine Objective - Results Result Diagrams: 01/29/18 05:10 01/29/18 05:10 Recent Labs: Laboratory Last Values WBC 36.2 Th/cmm (4.8-10.8) H* 01/29/18 05:10 RBC 2.70 Mil/cmm (3.80-5.20) L 01/29/18 05:10 Hgb 8.2 gm/dL (12-16) L 01/29/18 05:10 Hct 24.4 % (41.0-60) L 01/29/18 05:10 MCV 90.2 fl (81-100) 01/29/18 05:10 MCH 30.4 pg (27.0-31.0) 01/29/18 05:10 MCHC Differential 33.7 pg (28.0-36.0) 01/29/18 05:10 RDW 17.7 % (11.5-20.0) 01/29/18 05:10 Plt Count 223 Th/cmm (150-400) 01/29/18 05:10 MPV 8.6 fl 01/29/18 05:10 Neutrophils % 86.6 % (40.0-80.0) H 01/23/18 06:00 Band Neutrophils % 11 % (0-10) H 01/29/18 05:10 Lymphocytes % 5.3 % (20.0-50.0) L 01/23/18 06:00 Monocytes % 7.6 % (2.0-10.0) 01/23/18 06:00 Eosinophils % 0.5 % (0.0-5.0) 01/23/18 06:00 Basophils % 0.0 % (0.0-2.0) 01/23/18 06:00 Neutrophils (Manual) 77 % (40-80) 01/29/18 05:10 Lymphocytes 9 % (20-50) L 01/29/18 05:10 Monocytes 3 % (2-10) 01/29/18 05:10 Eosinophils 0 % (0-5) 01/27/18 04:58 Basophils 0 % (0-3) 01/27/18 04:58 Platelet Estimate ADEQUATE (NORMAL) 01/27/18 04:58 Platelet Morphology NORMAL (NORMAL) 01/27/18 04:58 RBC Morph Micro Appear NORMAL (NORMAL) 01/27/18 04:58 Eos Smear Source URINE 01/28/18 17:10 Eos Smear Total Cells NONE SEEN (NONE SEEN) 01/28/18 17:10 Specimen Source Arterial 01/24/18 17:45 Sample Site Left Radial 01/24/18 17:45 pH 7.41 (7.35-7.45) 01/24/18 17:45 pCO2 32.0 mmHg (35.0-45.0) L 01/24/18 17:45 pO2 397.0 mmHg (80.0-100.0) H 01/24/18 17:45 HCO3 22.3 mEq/L (20.0-26.0) 01/24/18 17:45 Base Excess -3.5 mEq/L (-3.0-3.0) L 01/24/18 17:45 O2 Saturation 100.0 % (92.0-100.0) 01/24/18 17:45 Bebo Test YES 01/24/18 17:45 Vent Rate 14 01/24/18 17:45 Inspired O2 100 01/24/18 17:45 Tidal Volume 450 01/24/18 17:45 PEEP 5 01/24/18 17:45 Pressure (ins/psv/peep) NA 01/24/18 17:45 Critical Value E.BRIDGES 01/24/18 17:45 Sodium 130 mEq/L (136-145) L 01/29/18 05:10 Potassium 5.0 mEq/L (3.5-5.1) 01/29/18 05:10 Chloride 112 mEq/L (98-107) H 01/29/18 05:10 Carbon Dioxide 12.7 mEq/L (21.0-31.0) L 01/29/18 05:10 Anion Gap 10.3 (7.0-16.0) 01/29/18 05:10 BUN 44 mg/dL (7-25) H 01/29/18 05:10 Creatinine 2.1 mg/dL (0.6-1.2) H 01/29/18 05:10 Est GFR ( Amer) TNP 01/29/18 05:10 Est GFR (Non-Af Amer) TNP 01/29/18 05:10 BUN/Creatinine Ratio 21.0 01/29/18 05:10 Glucose 148 mg/dL (70-105) H 01/29/18 05:10 POC Glucose 152 MG/DL (70 - 105) H 01/29/18 11:39 Hemoglobin A1c % 5.1 % (4.0-6.0) 01/20/18 12:15 Whole Bld Lactic Acid 1.50 mmol/L (0.60-1.99) 01/28/18 13:40 Uric Acid 4.8 mg/dL (2.3-6.6) 01/29/18 05:10 Calcium 6.5 mg/dL (8.6-10.3) L 01/29/18 05:10 Phosphorus 1.9 mg/dL (2.5-5.0) L 01/29/18 05:10 Magnesium 1.6 mg/dL (1.9-2.7) L 01/29/18 05:10 Iron 54 ug/dL (27-139) 01/20/18 12:50 TIBC 159 ug/dL (250-450) L 01/20/18 12:50 Iron Saturation 34 % (15-55) 01/20/18 12:50 Unsaturated IBC 105 ug/dL (118-369) L 01/20/18 12:50 Ferritin 1230 ng/mL (15-150) H 01/20/18 12:50 Total Bilirubin 0.3 mg/dL (0.3-1.0) 01/29/18 05:10 Direct Bilirubin 0.07 mg/dL (0.0-0.2) 01/20/18 12:30 AST 54 U/L (13-39) H 01/29/18 05:10 ALT 93 U/L (7-52) H 01/29/18 05:10 Alkaline Phosphatase 105 U/L (34-104) H 01/29/18 05:10 Troponin I 0.03 ng/mL (0.01-0.05) 01/20/18 12:15 C-Reactive Protein 4.3 mg/dL (0.0-0.9) H 01/20/18 12:50 B-Natriuretic Peptide 185.0 pg/mL (5.0-100.0) H 01/25/18 04:20 Total Protein 3.7 gm/dL (6.0-8.3) L 01/29/18 05:10 Albumin 1.6 gm/dL (3.7-5.3) L 01/29/18 05:10 Globulin 2.1 gm/dL 01/29/18 05:10 Albumin/Globulin Ratio 0.8 (1.0-1.8) L 01/29/18 05:10 Triglycerides 97 mg/dL (<150) 01/20/18 12:15 Cholesterol 195 mg/dL (<200) 01/20/18 12:15 LDL Cholesterol Direct 152 mg/dL (75-193) 01/20/18 12:15 HDL Cholesterol 40 mg/dL (23-92) 01/20/18 12:15 Lipase 108 U/L (11-82) H 01/20/18 12:15 Free T4 1.12 ng/dL (0.82-1.77) 01/20/18 12:50 TSH 0.06 uIU/ml (0.34-5.60) L 01/20/18 12:15 Urine Source [place] 01/28/18 17:10 Urine Color YELLOW 01/28/18 17:10 Urine Clarity CLOUDY (CLEAR) H 01/28/18 17:10 Urine pH 6.0 (4.6 - 8.0) 01/28/18 17:10 Ur Specific [place] 1.020 (1.005-1.030) 01/28/18 17:10 Urine Protein 100 mg/dL (NEGATIVE) H 01/28/18 17:10 Urine Glucose (UA) NEGATIVE mg/dL (NEGATIVE) 01/28/18 17:10 Urine Ketones NEGATIVE mg/dL (NEGATIVE) 01/28/18 17:10 Urine Blood MODERATE (NEGATIVE) H 01/28/18 17:10 Urine Nitrate NEGATIVE (NEGATIVE) 01/28/18 17:10 Urine Bilirubin NEGATIVE (NEGATIVE) 01/28/18 17:10 Urine Urobilinogen 0.2 E.U./dL (0.2 - 1.0) 01/28/18 17:10 Ur Leukocyte Esterase MODERATE (NEGATIVE) H 01/28/18 17:10 Urine RBC 5-10 /hpf (0-5) H 01/28/18 17:10 Urine WBC 10-25 /hpf (0-5) H 01/28/18 17:10 Ur Epithelial Cells OCCASIONAL /lpf (FEW) 01/28/18 17:10 Urine Bacteria OCCASIONAL /hpf (NONE SEEN) 01/28/18 17:10 Urine Yeast MANY /hpf (NONE SEEN) H 01/28/18 17:10 Ur Random Sodium 56 mmol/L 01/28/18 17:10 Urine Creatinine 39.0 mg/dl (28.0-217.0) 01/28/18 17:10 Vancomycin Trough 27.8 ug/mL (10-20) H 01/26/18 23:00 Random Vancomycin 23.7 ug/mL (5.0-40.0) 01/29/18 05:10 - Physical Exam Vitals and I&O: Vital Signs Temp 96 F 01/29/18 12:00 Pulse 70 01/29/18 15:20 Resp 16 01/29/18 15:00 BP 119/54 01/29/18 15:23 Pulse Ox 100 01/29/18 15:20 Intake & Output 01/28/18 01/29/18 01/29/18 18:59 06:59 18:59 Intake Total 1240 1560 100 Output Total 50 Balance 1240 1510 100 Weight (lbs) 123 lb 124 lb 9.6 oz Intake: Intake, IV Amount 1100 1100 100 D5-0.9NS w/KCL 20mEq 1, 1000 1000 000 ml @ 75 mls/hr IV . [id number] [facility] [place] Rx#:[id number] Meropenem 1 gm In Sodium 100 100 100 Chloride 0.9% 100 ml @ 100 mls/hr IV Q12H [facility] [place] Rx #:[id number] Oral 0 Tube Feeding 140 460 Output: Urine 50 Other: # Bowel Movements 2 Active Medications: Current Medications Acetaminophen (Tylenol) 650 mg PO Q4H PRN PRN Reason: MILD PAIN OR TEMP >100.4 Stop: 03/21/18 16:07 Al Hydrox/Mg Hydrox/Simethicone (Maalox) 30 ml PO Q6HR PRN PRN Reason: GI DISTRESS Stop: 03/21/18 16:28 Albuterol/Ipratropium (Duoneb Neb) 3 ml HHN Q6HRT [facility] Stop: 03/30/18 00:59 Last Admin: 01/29/18 13:21 Dose: 3 ml Artificial Tears (Artificial Tears Ophth Soln) 1 drop EACH EYE Q2HR PRN PRN Reason: Dry Eye Stop: 03/27/18 09:28 Last Admin: 01/26/18 10:13 Dose: 1 drop Atorvastatin Calcium (Lipitor) 80 mg PO HS [facility] PRN Reason: Protocol Stop: 03/21/18 20:59 Last Admin: 01/28/18 20:32 Dose: 80 mg Bisacodyl (Dulcolax 10 Mg Supp) 10 mg RC DAILY PRN PRN Reason: Constipation Stop: 03/21/18 16:07 Carvedilol (Coreg) 12.5 mg PO BID [facility] Stop: 03/21/18 16:59 Last Admin: 01/29/18 08:10 Dose: 12.5 mg Chlorhexidine Gluconate (Peridex) 15 ml MM 0800,2000 [facility] Stop: 03/27/18 07:59 Last Admin: 01/29/18 08:00 Dose: 15 ml Dextrose (D50w) 50 ml IVP PRN PRN PRN Reason: HYPOGLYCEMIA Stop: 03/21/18 16:07 Diltiazem HCl (Cardizem) 60 mg PO Q6HR [facility] Stop: 03/21/18 17:59 Last Admin: 01/29/18 12:10 Dose: 60 mg Enalaprilat (Vasotec) 2.5 mg IVP Q6HR PRN PRN Reason: SBP ABOVE 160 Stop: 03/25/18 11:59 Last Admin: 01/24/18 15:13 Dose: 2.5 mg Glucagon (Glucagen) 1 mg IVP PRN PRN PRN Reason: HYPOGLYCEMIA Stop: 03/21/18 16:25 Meropenem 1 gm/ Sodium (Chloride) 100 mls @ 100 mls/hr IV Q12H [facility] Stop: 03/26/18 08:59 Last Infusion: 01/29/18 10:30 Dose: Infused Phenylephrine HCl 10 mg/ (Sodium Chloride) 250 mls @ 75 mls/hr IV TITR [facility]; 50 MCG/MIN PRN Reason: Protocol Stop: 03/25/18 20:14 Norepinephrine Bitartrate 4 mg (/ Sodium Chloride) 254 mls @ 15.24 mls/hr IV TITR [facility]; 4 MCG/MIN PRN Reason: Protocol Stop: 03/26/18 08:14 Last Titration: 01/27/18 00:22 Dose: 0 mcg/min, 0 mls/hr Sodium Phosphate 20 mmole/ (Sodium Chloride) 256.6667 mls @ 42.5 mls/hr IV X1 ONE Stop: 01/29/18 21:02 Dextrose/Sodium Chloride (D5-0.9%Ns) 1,000 mls @ 50 mls/hr IV .Q20H [facility] [place] Stop: 03/30/18 14:09 Last Admin: 01/29/18 15:03 Dose: 50 mls/hr Fluconazole (Diflucan) 100 mg in 50 mls @ 50 mls/hr IV Q24HR [facility] Stop: 03/30/18 15:59 Insulin Aspart (Novolog Insulin Sliding Scale) 0 units SUBQ Q6HR [facility] PRN Reason: Protocol Stop: 03/27/18 00:00 Last Admin: 01/29/18 12:09 Dose: 2 units Magnesium Hydroxide (Milk Of Magnesia) 30 ml PO DAILY PRN PRN Reason: IF NO BM IN TWO DAYS Stop: 03/21/18 16:07 Megestrol Acetate (Megace) 400 mg PO BID [facility] [place] Stop: 03/21/18 16:59 Last Admin: 01/29/18 08:10 Dose: 400 mg Metoprolol Tartrate (Lopressor) 5 mg IV Q4H PRN PRN Reason: Tachycardia Stop: 03/25/18 12:29 Miscellaneous (Vancomycin Iv Per Pharmacy) 1 ea MC PRN [facility] [place] Stop: 03/25/18 17:59 Multivitamins/Vitamin C (Theragran) 1 tab PO DAILY [facility] [place] Stop: 03/22/18 08:59 Last Admin: 01/29/18 08:10 Dose: 1 tab Ondansetron HCl (Zofran Odt) 4 mg PO Q6H PRN PRN Reason: Nausea / Vomiting Stop: 03/21/18 16:07 Pantoprazole Sodium (Protonix) 40 mg NG DAILY [facility] [place] Stop: 03/28/18 16:59 Last Admin: 01/29/18 08:10 Dose: 40 mg Prednisone (Deltasone) 10 mg PO DAILY [facility] [place] Stop: 03/22/18 08:59 Last Admin: 01/29/18 08:10 Dose: 10 mg Sodium Bicarbonate (Sodium Bicarbonate) 650 mg PO BID [facility] PRN Reason: Protocol Stop: 03/29/18 16:59 Last Admin: 01/29/18 08:10 Dose: 650 mg Sodium Phosphate (Fleet Enema) 135 ml RC DAILY PRN PRN Reason: Constipation Stop: 03/21/18 16:07 Vitamin A (Vitamin A & D) 5 gm TP DAILY [facility] Stop: 03/22/18 08:59 Last Admin: 01/29/18 12:14 Dose: 5 gm General: weak, alert HEENT: NC/AT, PERRLA Neck: Supple Lungs: CTAB Cardiovascular: RRR, Normal S1, Normal S2, without murmur Abdomen: soft, non-tender, non-distended, positive bowel sound - Procedures Procedures: Procedures Procedure Code Date INSERT EMERGENCY AIRWAY 42913 01/20/18 INSERTION OF ENDOTRACHEAL AIRWAY INTO [place]ACHEA, VIA OPENING [id number] 01/20/18 RESPIRATORY VENTILATION, GREATER THAN 96 CONSECUTIVE HOURS [id number] 01/20/18 VENT MGMT INPAT INIT DAY 23925 01/20/18 Internal Medicine Assmt/Plan - Assessment Assessment: Current Active Problems Problem Status Onset ELEVATED WBC, LUNG INFILTRATES Acute Leukocytosis Pneumonia Dementia - Plan Plan: Ivantibiotics as per ID continue vent support follow up labs in am continue current orders Nutritional Asmnt/Malnutr-PDOC - Dietary Evaluation Malnutrition Findings (Please click <Entered> for more info): Nutritional Asmnt/Malnutrition Start: 01/21/18 16: 32 Text: Status: Complete Freq: Document 01/21/18 16:32 LCHENG (Rec: 01/21/18 16:48 [email or web address] [email or web address]) Nutritional Asmnt/Malnutrition Patient General Information Nutritional Screening High Risk Consult Diagnosis left lung infiltrate Pertinent Medical Hx/Surgical Hx dementia, HTN, hyperlipidemia per ER notes, no H&P at this time Subjective Information Pt seen sleeping at time of visit, not able to wake up for lunch. 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 Current Diet Order/ Nutrition Support low cholesterol 300gm Pertinent Medications D5-0.45ns, novolog, megace, theragran, piperacillin, vit A &D Pertinent Labs 01/21 BUN 32, Glucose 180, POC 142-261 01/20 A1c 5.1, POC 127-165 Nutritional Hx/Data Height 5 ft 3 in Height (Calculated Centimeters) 160.0 Current Weight (lbs) 83 lb Weight (Calculated Kilograms) 37.6 Weight (Calculated Grams) 56211.2 [place] Body Weight 115 Body Mass Index (BMI) 14.7 Weight Status Underweight GI Symptoms GI Symptoms None Last BM none Difficult in: None Skin Integrity/Comment: reddened to vagina and coccyx Current %PO Poor (25-49%) Estimated Nutritional Goals Calories/Kcals/Kg 25-30 Kcals Calculated 5095-3614 Protein g/k Protein Calculated 52 Fluid: ml 1300-1560ml (1ml/kcal) Nutritional Problem 2. Problem Problem chewing difficulty Etiology weakness, sleepy Signs/Symptoms: pt need for mech soft diet 1. Problem Problem altered nutrition related lab values Etiology hyperglycemia Signs/Symptoms: Glucose 180, POC 127-261 Intervention/Recommendation Comments 1. Recommend Mech soft ground diet with Boost BID to increase nutrition intake. 2. Monitor PO intake, wt, labs and skin integrity 3. F/U as high risk in 2-3 days, 01/23-01/24 Expected Outcomes/Goals Expected Outcomes/Goals 1. PO intake to meet at least 75% of nutritional needs. 2. Wt stability, skin to remain intact, labs to approach WNL.
[2018-01-29] MEDS: Fluconazole 100mg/50mL 100 MG/50 ML BOTTLE IV SCH (20:21)
[2018-01-29] MEDS ORDERED: Albumin 25% 25gm/100mL 25 GM/100 ML BTL IV SCH (21:00)
[2018-01-29 21:58] LABS: INR 0.9 (0.5-1.4); PROTHROMBIN TIME (TEST) 9.3 SECONDS (9.5-11.5)
--- NOTE | 2018-01-29 22:19 | Infectious Disease Prog Note ---
Infectious Disease Subjective - Review of Systems Service Date: 01/29/18 Subjective: No fever, remains intubated orally. on the ventilator support. Infectious Disease Objective - Results Result Diagrams: 01/29/18 05:10 01/29/18 05:10 Recent Labs: Laboratory Last Values WBC 36.2 Th/cmm (4.8-10.8) H* 01/29/18 05:10 RBC 2.70 Mil/cmm (3.80-5.20) L 01/29/18 05:10 Hgb 8.2 gm/dL (12-16) L 01/29/18 05:10 Hct 24.4 % (41.0-60) L 01/29/18 05:10 MCV 90.2 fl (81-100) 01/29/18 05:10 MCH 30.4 pg (27.0-31.0) 01/29/18 05:10 MCHC Differential 33.7 pg (28.0-36.0) 01/29/18 05:10 RDW 17.7 % (11.5-20.0) 01/29/18 05:10 Plt Count 223 Th/cmm (150-400) 01/29/18 05:10 MPV 8.6 fl 01/29/18 05:10 Neutrophils % 86.6 % (40.0-80.0) H 01/23/18 06:00 Band Neutrophils % 11 % (0-10) H 01/29/18 05:10 Lymphocytes % 5.3 % (20.0-50.0) L 01/23/18 06:00 Monocytes % 7.6 % (2.0-10.0) 01/23/18 06:00 Eosinophils % 0.5 % (0.0-5.0) 01/23/18 06:00 Basophils % 0.0 % (0.0-2.0) 01/23/18 06:00 Neutrophils (Manual) 77 % (40-80) 01/29/18 05:10 Lymphocytes 9 % (20-50) L 01/29/18 05:10 Monocytes 3 % (2-10) 01/29/18 05:10 Eosinophils 0 % (0-5) 01/27/18 04:58 Basophils 0 % (0-3) 01/27/18 04:58 Platelet Estimate ADEQUATE (NORMAL) 01/27/18 04:58 Platelet Morphology NORMAL (NORMAL) 01/27/18 04:58 RBC Morph Micro Appear NORMAL (NORMAL) 01/27/18 04:58 Eos Smear Source URINE 01/28/18 17:10 Eos Smear Total Cells NONE SEEN (NONE SEEN) 01/28/18 17:10 PT 9.3 SECONDS (9.5-11.5) L 01/29/18 21:26 INR 0.90 (0.5-1.4) 01/29/18 21:26 Specimen Source Arterial 01/24/18 17:45 Sample Site Left Radial 01/24/18 17:45 pH 7.41 (7.35-7.45) 01/24/18 17:45 pCO2 32.0 mmHg (35.0-45.0) L 01/24/18 17:45 pO2 397.0 mmHg (80.0-100.0) H 01/24/18 17:45 HCO3 22.3 mEq/L (20.0-26.0) 01/24/18 17:45 Base Excess -3.5 mEq/L (-3.0-3.0) L 01/24/18 17:45 O2 Saturation 100.0 % (92.0-100.0) 01/24/18 17:45 Bebo Test YES 01/24/18 17:45 Vent Rate 14 01/24/18 17:45 Inspired O2 100 01/24/18 17:45 Tidal Volume 450 01/24/18 17:45 PEEP 5 01/24/18 17:45 Pressure (ins/psv/peep) NA 01/24/18 17:45 Critical Value E.BRIDGES 01/24/18 17:45 Sodium 130 mEq/L (136-145) L 01/29/18 05:10 Potassium 5.0 mEq/L (3.5-5.1) 01/29/18 05:10 Chloride 112 mEq/L (98-107) H 01/29/18 05:10 Carbon Dioxide 12.7 mEq/L (21.0-31.0) L 01/29/18 05:10 Anion Gap 10.3 (7.0-16.0) 01/29/18 05:10 BUN 44 mg/dL (7-25) H 01/29/18 05:10 Creatinine 2.1 mg/dL (0.6-1.2) H 01/29/18 05:10 Est GFR ( Amer) TNP 01/29/18 05:10 Est GFR (Non-Af Amer) TNP 01/29/18 05:10 BUN/Creatinine Ratio 21.0 01/29/18 05:10 Glucose 148 mg/dL (70-105) H 01/29/18 05:10 POC Glucose 125 MG/DL (70 - 105) H 01/29/18 17:41 Hemoglobin A1c % 5.1 % (4.0-6.0) 01/20/18 12:15 Whole Bld Lactic Acid 1.50 mmol/L (0.60-1.99) 01/28/18 13:40 Uric Acid 4.8 mg/dL (2.3-6.6) 01/29/18 05:10 Calcium 6.5 mg/dL (8.6-10.3) L 01/29/18 05:10 Phosphorus 1.9 mg/dL (2.5-5.0) L 01/29/18 05:10 Magnesium 1.6 mg/dL (1.9-2.7) L 01/29/18 05:10 Iron 54 ug/dL (27-139) 01/20/18 12:50 TIBC 159 ug/dL (250-450) L 01/20/18 12:50 Iron Saturation 34 % (15-55) 01/20/18 12:50 Unsaturated IBC 105 ug/dL (118-369) L 01/20/18 12:50 Ferritin 1230 ng/mL (15-150) H 01/20/18 12:50 Total Bilirubin 0.3 mg/dL (0.3-1.0) 01/29/18 05:10 Direct Bilirubin 0.07 mg/dL (0.0-0.2) 01/20/18 12:30 AST 54 U/L (13-39) H 01/29/18 05:10 ALT 93 U/L (7-52) H 01/29/18 05:10 Alkaline Phosphatase 105 U/L (34-104) H 01/29/18 05:10 Troponin I 0.03 ng/mL (0.01-0.05) 01/20/18 12:15 C-Reactive Protein 4.3 mg/dL (0.0-0.9) H 01/20/18 12:50 B-Natriuretic Peptide 185.0 pg/mL (5.0-100.0) H 01/25/18 04:20 Total Protein 3.7 gm/dL (6.0-8.3) L 01/29/18 05:10 Albumin 1.6 gm/dL (3.7-5.3) L 01/29/18 05:10 Globulin 2.1 gm/dL 01/29/18 05:10 Albumin/Globulin Ratio 0.8 (1.0-1.8) L 01/29/18 05:10 Triglycerides 97 mg/dL (<150) 01/20/18 12:15 Cholesterol 195 mg/dL (<200) 01/20/18 12:15 LDL Cholesterol Direct 152 mg/dL (75-193) 01/20/18 12:15 HDL Cholesterol 40 mg/dL (23-92) 01/20/18 12:15 Lipase 108 U/L (11-82) H 01/20/18 12:15 Free T4 1.12 ng/dL (0.82-1.77) 01/20/18 12:50 TSH 0.06 uIU/ml (0.34-5.60) L 01/20/18 12:15 Urine Source [place]EN [place] 01/28/18 17:10 Urine Color YELLOW 01/28/18 17:10 Urine Clarity CLOUDY (CLEAR) H 01/28/18 17:10 Urine pH 6.0 (4.6 - 8.0) 01/28/18 17:10 Ur Specific [place] 1.020 (1.005-1.030) 01/28/18 17:10 Urine Protein 100 mg/dL (NEGATIVE) H 01/28/18 17:10 Urine Glucose (UA) NEGATIVE mg/dL (NEGATIVE) 01/28/18 17:10 Urine Ketones NEGATIVE mg/dL (NEGATIVE) 01/28/18 17:10 Urine Blood MODERATE (NEGATIVE) H 01/28/18 17:10 Urine Nitrate NEGATIVE (NEGATIVE) 01/28/18 17:10 Urine Bilirubin NEGATIVE (NEGATIVE) 01/28/18 17:10 Urine Urobilinogen 0.2 E.U./dL (0.2 - 1.0) 01/28/18 17:10 Ur Leukocyte Esterase MODERATE (NEGATIVE) H 01/28/18 17:10 Urine RBC 5-10 /hpf (0-5) H 01/28/18 17:10 Urine WBC 10-25 /hpf (0-5) H 01/28/18 17:10 Ur Epithelial Cells OCCASIONAL /lpf (FEW) 01/28/18 17:10 Urine Bacteria OCCASIONAL /hpf (NONE SEEN) 01/28/18 17:10 Urine Yeast MANY /hpf (NONE SEEN) H 01/28/18 17:10 Ur Random Sodium 56 mmol/L 01/28/18 17:10 Urine Creatinine 39.0 mg/dl (28.0-217.0) 01/28/18 17:10 Vancomycin Trough 27.8 ug/mL (10-20) H 01/26/18 23:00 Random Vancomycin 23.7 ug/mL (5.0-40.0) 01/29/18 05:10 - Physical Exam Vitals and I&O: Vital Signs Temp 96 F 01/29/18 12:00 Pulse 73 01/29/18 22:08 Resp 14 01/29/18 19:00 BP 109/51 01/29/18 19:00 Pulse Ox 100 01/29/18 22:08 Intake & Output 01/29/18 01/29/18 01/30/18 06:59 18:59 06:59 Intake Total 1560 100 Output Total 50 Balance 1510 100 Weight (lbs) 56.518 kg Intake: Intake, IV Amount 1100 100 D5-0.9NS w/KCL 20mEq 1, 1000 000 ml @ 75 mls/hr IV . [id number] [facility] Rx#:[id number] Meropenem 1 gm In Sodium 100 100 Chloride 0.9% 100 ml @ 100 mls/hr IV Q12H [facility] Rx #:[id number] Oral 0 Tube Feeding 460 Output: Urine 50 Other: # Bowel Movements 2 Active Medications: Current Medications Acetaminophen (Tylenol) 650 mg PO Q4H PRN PRN Reason: MILD PAIN OR TEMP >100.4 Stop: 03/21/18 16:07 Al Hydrox/Mg Hydrox/Simethicone (Maalox) 30 ml PO Q6HR PRN PRN Reason: GI DISTRESS Stop: 03/21/18 16:28 Albuterol/Ipratropium (Duoneb Neb) 3 ml HHN Q6HRT [facility] Stop: 03/30/18 00:59 Last Admin: 01/29/18 19:24 Dose: 3 ml Artificial Tears (Artificial Tears Ophth Soln) 1 drop EACH EYE Q2HR PRN PRN Reason: Dry Eye Stop: 03/27/18 09:28 Last Admin: 01/26/18 10:13 Dose: 1 drop Atorvastatin Calcium (Lipitor) 80 mg PO HS [facility]RI[facility] PRN Reason: Protocol Stop: 03/21/18 20:59 Last Admin: 01/29/18 21:10 Dose: 80 mg Bisacodyl (Dulcolax 10 Mg Supp) 10 mg RC DAILY PRN PRN Reason: Constipation Stop: 03/21/18 16:07 Carvedilol (Coreg) 12.5 mg PO BID [facility] Stop: 03/21/18 16:59 Last Admin: 01/29/18 17:47 Dose: 12.5 mg Chlorhexidine Gluconate (Peridex) 15 ml MM 0800,2000 [facility] Stop: 03/27/18 07:59 Last Admin: 01/29/18 08:00 Dose: 15 ml Dextrose (D50w) 50 ml IVP PRN PRN PRN Reason: HYPOGLYCEMIA Stop: 03/21/18 16:07 Diltiazem HCl (Cardizem) 60 mg PO Q6HR [facility] Stop: 03/21/18 17:59 Last Admin: 01/29/18 17:48 Dose: 60 mg Enalaprilat (Vasotec) 2.5 mg IVP Q6HR PRN PRN Reason: SBP ABOVE 160 Stop: 03/25/18 11:59 Last Admin: 01/24/18 15:13 Dose: 2.5 mg Glucagon (Glucagen) 1 mg IVP PRN PRN PRN Reason: HYPOGLYCEMIA Stop: 03/21/18 16:25 Meropenem 1 gm/ Sodium (Chloride) 100 mls @ 100 mls/hr IV Q12H [facility] Stop: 03/26/18 08:59 Last Admin: 01/29/18 21:20 Dose: 100 mls/hr Phenylephrine HCl 10 mg/ (Sodium Chloride) 250 mls @ 75 mls/hr IV TITR HARRIET; 50 MCG/MIN PRN Reason: Protocol Stop: 03/25/18 20:14 Norepinephrine Bitartrate 4 mg (/ Sodium Chloride) 254 mls @ 15.24 mls/hr IV TITR HARRIET; 4 MCG/MIN PRN Reason: Protocol Stop: 03/26/18 08:14 Last Titration: 01/27/18 00:22 Dose: 0 mcg/min, 0 mls/hr Dextrose/Sodium Chloride (D5-0.9%Ns) 1,000 mls @ 50 mls/hr IV .Q20H [facility] Stop: 03/30/18 14:09 Last Admin: 01/29/18 15:03 Dose: 50 mls/hr Fluconazole (Diflucan) 100 mg in 50 mls @ 50 mls/hr IV Q24HR [facility] Stop: 03/30/18 15:59 Last Admin: 01/29/18 20:21 Dose: 50 mls/hr Insulin Aspart (Novolog Insulin Sliding Scale) 0 units SUBQ Q6HR [facility] PRN Reason: Protocol Stop: 03/27/18 00:00 Last Admin: 01/29/18 17:49 Dose: Not Given Magnesium Hydroxide (Milk Of Magnesia) 30 ml PO DAILY PRN PRN Reason: IF NO BM IN TWO DAYS Stop: 03/21/18 16:07 Megestrol Acetate (Megace) 400 mg PO BID [facility] Stop: 03/21/18 16:59 Last Admin: 01/29/18 17:47 Dose: 400 mg Metoprolol Tartrate (Lopressor) 5 mg IV Q4H PRN PRN Reason: Tachycardia Stop: 03/25/18 12:29 Miscellaneous (Vancomycin Iv Per Pharmacy) 1 ea MC PRN [facility] Stop: 03/25/18 17:59 Multivitamins/Vitamin C (Theragran) 1 tab PO DAILY [facility] Stop: 03/22/18 08:59 Last Admin: 01/29/18 08:10 Dose: 1 tab Ondansetron HCl (Zofran Odt) 4 mg PO Q6H PRN PRN Reason: Nausea / Vomiting Stop: 03/21/18 16:07 Pantoprazole Sodium (Protonix) 40 mg NG DAILY [facility] Stop: 03/28/18 16:59 Last Admin: 01/29/18 08:10 Dose: 40 mg Prednisone (Deltasone) 10 mg PO DAILY [facility] Stop: 03/22/18 08:59 Last Admin: 01/29/18 08:10 Dose: 10 mg Sodium Bicarbonate (Sodium Bicarbonate) 650 mg PO BID [facility] PRN Reason: Protocol Stop: 03/29/18 16:59 Last Admin: 01/29/18 17:49 Dose: 650 mg Sodium Phosphate (Fleet Enema) 135 ml RC DAILY PRN PRN Reason: Constipation Stop: 03/21/18 16:07 Vitamin A (Vitamin A & D) 5 gm TP DAILY [facility] Stop: 03/22/18 08:59 Last Admin: 01/29/18 12:14 Dose: 5 gm General: no acute distress, well developed, well nourished HEENT: atraumatic, normocephalic, PERRLA, moist mucous membrane Neck: supple, no thyromegaly Cardiovascular: S1S2, regular Lungs: clear to auscultation bilaterally, rhonchi Abdomen: soft, bowel sounds, no tender, no distended, no mass Extremities: edema, no cyanosis, no clubbing Neurological: other (comatose), no awake Skin: intact - Procedures Procedures: Procedures Procedure Code Date INSERT EMERGENCY AIRWAY 55169 01/20/18 INSERTION OF ENDOTRACHEAL AIRWAY INTO [place], VIA OPENING [id number] 01/20/18 RESPIRATORY VENTILATION, GREATER THAN 96 CONSECUTIVE HOURS [id number] 01/20/18 VENT MGMT INPAT INIT DAY 92209 01/20/18 Infectious Disease Assmt/Plan - Problem List Patient Problems: All Active Problems ELEVATED WBC, LUNG INFILTRATES (Acute) - Assessment Assessment: 1. Leukocytosis. suspect sepsis. 2. Pneumonia. L lung. 3. Dementia 4. S/p CP arrest. 5. Anoxic encephalopathy. 6. VDRF. 7. Increaing creatinine. LAURENCE. oliguric. - Plan Plan: Continue vanco IV and meropenem. sepsis w/u. flagyl suspecting c diff at this high WBC count. Nutritional Asmnt/Malnutr-PDOC - Dietary Evaluation Malnutrition Findings (Please click <Entered> for more info): Nutritional Asmnt/Malnutrition Start: 01/21/18 16: 32 Text: Status: Complete Freq: Document 01/21/18 16:32 HEN (Rec: 01/21/18 16:48 [email or web address] [email or web address]) Nutritional Asmnt/Malnutrition Patient General Information Nutritional Screening High Risk Consult Diagnosis left lung infiltrate Pertinent Medical Hx/Surgical Hx dementia, HTN, hyperlipidemia per ER notes, no H&P at this time Subjective Information Pt seen sleeping at time of visit, not able to wake up for lunch. Per CHILD MONITOR, pt only had cereal and scrambled eggs this morning, not able to chew the [place] toast d/t weakness. Current Diet Order/ Nutrition Support low cholesterol 300gm Pertinent Medications D5-0.45ns, novolog, megace, theragran, piperacillin, vit A &D Pertinent Labs 01/21 BUN 32, Glucose 180, POC 142-261 01/20 A1c 5.1, POC 127-165 Nutritional Hx/Data Height 1.6 m Height (Calculated Centimeters) 160.0 Current Weight (lbs) 37.648 kg Weight (Calculated Kilograms) 37.6 Weight (Calculated Grams) 65961.2 [place] Body Weight 115 Body Mass Index (BMI) 14.7 Weight Status Underweight GI Symptoms GI Symptoms None Last BM none Difficult in: None Skin Integrity/Comment: reddened to vagina and coccyx Current %PO Poor (25-49%) Estimated Nutritional Goals Calories/Kcals/Kg 25-30 Kcals Calculated 3299-2372 Protein g/k Protein Calculated 52 Fluid: ml 1300-1560ml (1ml/kcal) Nutritional Problem 2. Problem Problem chewing difficulty Etiology weakness, sleepy Signs/Symptoms: pt need for mech soft diet 1. Problem Problem altered nutrition related lab values Etiology hyperglycemia Signs/Symptoms: Glucose 180, POC 127-261 Intervention/Recommendation Comments 1. Recommend Mech soft ground diet with Boost BID to increase nutrition intake. 2. Monitor PO intake, wt, labs and skin integrity 3. F/U as high risk in 2-3 days, 01/23-01/24 Expected Outcomes/Goals Expected Outcomes/Goals 1. PO intake to meet at least 75% of nutritional needs. 2. Wt stability, skin to remain intact, labs to approach WNL.
[2018-01-29] MEDS ORDERED: Albumin 25% 25gm/100mL 25 GM/100 ML BTL IV ONE ×3 (22:46→23:36)
[2018-01-29] MEDS ORDERED: Heparin Sodium 1,000 Units/mL Vial IVP ONE (23:17)
[2018-01-30] MEDS: Chlorhexidine Gluconate 0.12% 15mL Mouthwash MM SCH ×3 (00:17→21:33)
[2018-01-30] MEDS: INSULIN ASPART SLIDING SCALE 100 UNITS/ML UNIT SUBQ SCH ×4 (00:22→17:22)
[2018-01-30] MEDS: Albuterol/Ipratropium Neb 3 ML AERS HHN SCH ×4 (00:28→19:13)
[2018-01-30] MEDS: Diltiazem 30 mg Tab PO SCH ×4 (06:00→20:24)
[2018-01-30 06:05] LABS: ANION GAP 11.9 (7.0-16.0); BUN - UREA NITROGEN 54 mg/dL (7-25); CALCIUM SERUM 7.2 mg/dL (8.6-10.3); CARBON DIOXIDE 17.6 mEq/L (21.0-31.0); CHLORIDE 111 mEq/L (98-107); CREATININE - SERUM 2.3 mg/dL (0.6-1.2); GLUCOSE 116 mg/dL (70-105); MAGNESIUM 2.3 mg/dL (1.9-2.7); PHOSPHOROUS 3.3 mg/dL (2.5-5.0); POTASSIUM SERUM 5.5 mEq/L (3.5-5.1); SODIUM SERUM 135 mEq/L (136-145); URIC ACID 5.3 mg/dL (2.3-6.6)
--- NOTE | 2018-01-30 08:31 | Diagnostic Imaging Report ---
Exam: Portable chest x-ray. HISTORY: Congestive heart failure. Findings: Portable examination of the chest at 0745 hours reviewed and compared to prior study of 01/27/2017 demonstrates NG tube passes stomach. Endotracheal tube terminates 3 cm above the andrew. Mediastinal structures midline the heart is not enlarged. The aortic arch calcified. There is evidence of for atelectatic change lung bases bilaterally with superimposed pleural thickening. Mild congestion cannot be excluded. Bony thorax is unremarkable. IMPRESSION: COPD changes bilaterally with Basilar atelectasis peribronchial thickening, small pleural effusions cannot be excluded. Follow-up examination recommended clinically indicated
[2018-01-30 08:53] LABS: MEAN CORPUSCULAR HGB CONC 34.8 pg (28.0-36.0); MEAN PLATELET VOLUME 8.9 fl; PLATELET COUNT 158 Th/cmm (150-400); RED BLOOD COUNT 1.97 Mil/cmm (3.80-5.20); RED CELL DISTRIBUTION WIDTH 17.3 % (11.5-20.0)
[2018-01-30] MEDS: Vitamin A/Vitamin D 5 gm Packet TP SCH (09:00)
[2018-01-30] MEDS: Pantoprazole 40 mg/Packet NG SCH (09:03)
[2018-01-30] MEDS: Multivitamin Tab PO SCH (09:04)
[2018-01-30] MEDS: Albumin 25% 25gm/100mL 25 GM/100 ML BTL IV SCH ×2 (09:05→17:12)
--- NOTE | 2018-01-30 09:30 | General Progress Note ---
Subjective - Review of Systems Events since last encounter: intubated orally on the ventilator support Objective - Results Result Diagrams: 01/29/18 05:10 01/30/18 05:06 Recent Labs: Laboratory Last Values WBC 36.2 Th/cmm (4.8-10.8) H* 01/29/18 05:10 RBC 2.70 Mil/cmm (3.80-5.20) L 01/29/18 05:10 Hgb 8.2 gm/dL (12-16) L 01/29/18 05:10 Hct 24.4 % (41.0-60) L 01/29/18 05:10 MCV 90.2 fl (81-100) 01/29/18 05:10 MCH 30.4 pg (27.0-31.0) 01/29/18 05:10 MCHC Differential 33.7 pg (28.0-36.0) 01/29/18 05:10 RDW 17.7 % (11.5-20.0) 01/29/18 05:10 Plt Count 223 Th/cmm (150-400) 01/29/18 05:10 MPV 8.6 fl 01/29/18 05:10 Neutrophils % 86.6 % (40.0-80.0) H 01/23/18 06:00 Band Neutrophils % 11 % (0-10) H 01/29/18 05:10 Lymphocytes % 5.3 % (20.0-50.0) L 01/23/18 06:00 Monocytes % 7.6 % (2.0-10.0) 01/23/18 06:00 Eosinophils % 0.5 % (0.0-5.0) 01/23/18 06:00 Basophils % 0.0 % (0.0-2.0) 01/23/18 06:00 Neutrophils (Manual) 77 % (40-80) 01/29/18 05:10 Lymphocytes 9 % (20-50) L 01/29/18 05:10 Monocytes 3 % (2-10) 01/29/18 05:10 Eosinophils 0 % (0-5) 01/27/18 04:58 Basophils 0 % (0-3) 01/27/18 04:58 Platelet Estimate ADEQUATE (NORMAL) 01/27/18 04:58 Platelet Morphology NORMAL (NORMAL) 01/27/18 04:58 RBC Morph Micro Appear NORMAL (NORMAL) 01/27/18 04:58 Eos Smear Source URINE 01/28/18 17:10 Eos Smear Total Cells NONE SEEN (NONE SEEN) 01/28/18 17:10 PT 9.3 SECONDS (9.5-11.5) L 01/29/18 21:26 INR 0.90 (0.5-1.4) 01/29/18 21:26 PTT (Actin FS) 46.6 SECONDS (26.0-38.0) H 01/29/18 21:26 Specimen Source Arterial 01/24/18 17:45 Sample Site Left Radial 01/24/18 17:45 pH 7.41 (7.35-7.45) 01/24/18 17:45 pCO2 32.0 mmHg (35.0-45.0) L 01/24/18 17:45 pO2 397.0 mmHg (80.0-100.0) H 01/24/18 17:45 HCO3 22.3 mEq/L (20.0-26.0) 01/24/18 17:45 Base Excess -3.5 mEq/L (-3.0-3.0) L 01/24/18 17:45 O2 Saturation 100.0 % (92.0-100.0) 01/24/18 17:45 Bebo Test YES 01/24/18 17:45 Vent Rate 14 01/24/18 17:45 Inspired O2 100 01/24/18 17:45 Tidal Volume 450 01/24/18 17:45 PEEP 5 01/24/18 17:45 Pressure (ins/psv/peep) NA 01/24/18 17:45 Critical Value E.BRIDGES 01/24/18 17:45 Sodium 135 mEq/L (136-145) L 01/30/18 05:06 Potassium 5.5 mEq/L (3.5-5.1) H 01/30/18 05:06 Chloride 111 mEq/L (98-107) H 01/30/18 05:06 Carbon Dioxide 17.6 mEq/L (21.0-31.0) L 01/30/18 05:06 Anion Gap 11.9 (7.0-16.0) 01/30/18 05:06 BUN 54 mg/dL (7-25) H 01/30/18 05:06 Creatinine 2.3 mg/dL (0.6-1.2) H 01/30/18 05:06 Est GFR ( Amer) TNP 01/30/18 05:06 Est GFR (Non-Af Amer) TNP 01/30/18 05:06 BUN/Creatinine Ratio 23.5 01/30/18 05:06 Glucose 116 mg/dL (70-105) H 01/30/18 05:06 POC Glucose 114 MG/DL (70 - 105) H 01/29/18 23:43 Hemoglobin A1c % 5.1 % (4.0-6.0) 01/20/18 12:15 Plasma/Ser Osmolality 287 mOsmol/kg (280-301) 01/28/18 17:45 Whole Bld Lactic Acid 1.50 mmol/L (0.60-1.99) 01/28/18 13:40 Uric Acid 5.3 mg/dL (2.3-6.6) 01/30/18 05:06 Calcium 7.2 mg/dL (8.6-10.3) L 01/30/18 05:06 Phosphorus 3.3 mg/dL (2.5-5.0) 01/30/18 05:06 Magnesium 2.3 mg/dL (1.9-2.7) 01/30/18 05:06 Iron 54 ug/dL (27-139) 01/20/18 12:50 TIBC 159 ug/dL (250-450) L 01/20/18 12:50 Iron Saturation 34 % (15-55) 01/20/18 12:50 Unsaturated IBC 105 ug/dL (118-369) L 01/20/18 12:50 Ferritin 1230 ng/mL (15-150) H 01/20/18 12:50 Total Bilirubin 0.3 mg/dL (0.3-1.0) 01/29/18 05:10 Direct Bilirubin 0.07 mg/dL (0.0-0.2) 01/20/18 12:30 AST 54 U/L (13-39) H 01/29/18 05:10 ALT 93 U/L (7-52) H 01/29/18 05:10 Alkaline Phosphatase 105 U/L (34-104) H 01/29/18 05:10 Troponin I 0.03 ng/mL (0.01-0.05) 01/20/18 12:15 C-Reactive Protein 4.3 mg/dL (0.0-0.9) H 01/20/18 12:50 B-Natriuretic Peptide 185.0 pg/mL (5.0-100.0) H 01/25/18 04:20 Total Protein 3.7 gm/dL (6.0-8.3) L 01/29/18 05:10 Albumin 1.6 gm/dL (3.7-5.3) L 01/29/18 05:10 Globulin 2.1 gm/dL 01/29/18 05:10 Albumin/Globulin Ratio 0.8 (1.0-1.8) L 01/29/18 05:10 Triglycerides 97 mg/dL (<150) 01/20/18 12:15 Cholesterol 195 mg/dL (<200) 01/20/18 12:15 LDL Cholesterol Direct 152 mg/dL (75-193) 01/20/18 12:15 HDL Cholesterol 40 mg/dL (23-92) 01/20/18 12:15 Lipase 108 U/L (11-82) H 01/20/18 12:15 Free T4 1.12 ng/dL (0.82-1.77) 01/20/18 12:50 TSH 0.06 uIU/ml (0.34-5.60) L 01/20/18 12:15 Urine Source ZAPIEN PORT 01/28/18 17:10 Urine Color YELLOW 01/28/18 17:10 Urine Clarity CLOUDY (CLEAR) H 01/28/18 17:10 Urine pH 6.0 (4.6 - 8.0) 01/28/18 17:10 Ur Specific Morris 1.020 (1.005-1.030) 01/28/18 17:10 Urine Protein 100 mg/dL (NEGATIVE) H 01/28/18 17:10 Urine Glucose (UA) NEGATIVE mg/dL (NEGATIVE) 01/28/18 17:10 Urine Ketones NEGATIVE mg/dL (NEGATIVE) 01/28/18 17:10 Urine Blood MODERATE (NEGATIVE) H 01/28/18 17:10 Urine Nitrate NEGATIVE (NEGATIVE) 01/28/18 17:10 Urine Bilirubin NEGATIVE (NEGATIVE) 01/28/18 17:10 Urine Urobilinogen 0.2 E.U./dL (0.2 - 1.0) 01/28/18 17:10 Ur Leukocyte Esterase MODERATE (NEGATIVE) H 01/28/18 17:10 Urine RBC 5-10 /hpf (0-5) H 01/28/18 17:10 Urine WBC 10-25 /hpf (0-5) H 01/28/18 17:10 Ur Epithelial Cells OCCASIONAL /lpf (FEW) 01/28/18 17:10 Urine Bacteria OCCASIONAL /hpf (NONE SEEN) 01/28/18 17:10 Urine Yeast MANY /hpf (NONE SEEN) H 01/28/18 17:10 Ur Random Sodium 56 mmol/L 01/28/18 17:10 Urine Creatinine 39.0 mg/dl (28.0-217.0) 01/28/18 17:10 Vancomycin Trough 27.8 ug/mL (10-20) H 01/26/18 23:00 Random Vancomycin 23.0 ug/mL (5.0-40.0) 01/30/18 05:06 - Physical Exam Vitals and I&O: Vital Signs Temp 98.8 F 01/30/18 04:00 Pulse 74 01/30/18 07:23 Resp 14 01/30/18 06:00 BP 99/46 01/30/18 06:00 Pulse Ox 100 01/30/18 07:23 Intake & Output 01/29/18 01/30/18 01/30/18 18:59 06:59 18:59 Intake Total 100 480 Output Total 150 Balance 100 330 Weight (lbs) 57.266 kg Intake: Intake, IV Amount 100 Meropenem 1 gm In Sodium 100 Chloride 0.9% 100 ml @ 100 mls/hr IV Q12H [facility] Rx #:[id number] Tube Feeding 480 Output: Urine 150 Other: # Bowel Movements 1 Stool Characteristics Soft Liquid Active Medications: Current Medications Acetaminophen (Tylenol) 650 mg PO Q4H PRN PRN Reason: MILD PAIN OR TEMP >100.4 Stop: 03/21/18 16:07 Al Hydrox/Mg Hydrox/Simethicone (Maalox) 30 ml PO Q6HR PRN PRN Reason: GI DISTRESS Stop: 03/21/18 16:28 Albuterol/Ipratropium (Duoneb Neb) 3 ml HHN Q6HRT [facility] Stop: 03/30/18 00:59 Last Admin: 01/30/18 07:22 Dose: 3 ml Artificial Tears (Artificial Tears Ophth Soln) 1 drop EACH EYE Q2HR PRN PRN Reason: Dry Eye Stop: 03/27/18 09:28 Last Admin: 01/26/18 10:13 Dose: 1 drop Atorvastatin Calcium (Lipitor) 80 mg PO HS [facility] PRN Reason: Protocol Stop: 03/21/18 20:59 Last Admin: 01/29/18 21:10 Dose: 80 mg Bisacodyl (Dulcolax 10 Mg Supp) 10 mg RC DAILY PRN PRN Reason: Constipation Stop: 03/21/18 16:07 Carvedilol (Coreg) 12.5 mg PO BID [facility] Stop: 03/21/18 16:59 Last Admin: 01/29/18 17:47 Dose: 12.5 mg Chlorhexidine Gluconate (Peridex) 15 ml MM 0800,2000 [facility] Stop: 03/27/18 07:59 Last Admin: 01/30/18 00:17 Dose: 15 ml Dextrose (D50w) 50 ml IVP PRN PRN PRN Reason: HYPOGLYCEMIA Stop: 03/21/18 16:07 Diltiazem HCl (Cardizem) 60 mg PO Q6HR [facility] Stop: 03/21/18 17:59 Last Admin: 01/30/18 00:00 Dose: Not Given Enalaprilat (Vasotec) 2.5 mg IVP Q6HR PRN PRN Reason: SBP ABOVE 160 Stop: 03/25/18 11:59 Last Admin: 01/24/18 15:13 Dose: 2.5 mg Furosemide (Lasix) 40 mg IVP DAILY [facility] Stop: 02/01/18 09:01 Glucagon (Glucagen) 1 mg IVP PRN PRN PRN Reason: HYPOGLYCEMIA Stop: 03/21/18 16:25 Meropenem 1 gm/ Sodium (Chloride) 100 mls @ 100 mls/hr IV Q12H [facility] Stop: 03/26/18 08:59 Last Admin: 01/29/18 21:20 Dose: 100 mls/hr Phenylephrine HCl 10 mg/ (Sodium Chloride) 250 mls @ 75 mls/hr IV TITR [facility]; 50 MCG/MIN PRN Reason: Protocol Stop: 03/25/18 20:14 Norepinephrine Bitartrate 4 mg (/ Sodium Chloride) 254 mls @ 15.24 mls/hr IV TITR [facility]; 4 MCG/MIN PRN Reason: Protocol Stop: 03/26/18 08:14 Last Titration: 01/27/18 00:22 Dose: 0 mcg/min, 0 mls/hr Fluconazole (Diflucan) 100 mg in 50 mls @ 50 mls/hr IV Q24HR [facility] Stop: 03/30/18 15:59 Last Admin: 01/29/18 20:21 Dose: 50 mls/hr Albumin Human (Albuminar 25%) 25 gm in 100 mls @ 50 mls/hr IV Q8H [facility] Stop: 02/02/18 01:59 Last Admin: 01/30/18 09:05 Dose: 50 mls/hr Insulin Aspart (Novolog Insulin Sliding Scale) 0 units SUBQ Q6HR [facility] PRN Reason: Protocol Stop: 03/27/18 00:00 Last Admin: 01/30/18 00:22 Dose: Not Given Magnesium Hydroxide (Milk Of Magnesia) 30 ml PO DAILY PRN PRN Reason: IF NO BM IN TWO DAYS Stop: 03/21/18 16:07 Megestrol Acetate (Megace) 400 mg PO BID [facility] Stop: 03/21/18 16:59 Last Admin: 01/30/18 09:03 Dose: 400 mg Metoprolol Tartrate (Lopressor) 5 mg IV Q4H PRN PRN Reason: Tachycardia Stop: 03/25/18 12:29 Miscellaneous (Vancomycin Iv Per Pharmacy) 1 ea MC PRN [facility] Stop: 03/25/18 17:59 Multivitamins/Vitamin C (Theragran) 1 tab PO DAILY [facility] Stop: 03/22/18 08:59 Last Admin: 01/30/18 09:04 Dose: 1 tab Ondansetron HCl (Zofran Odt) 4 mg PO Q6H PRN PRN Reason: Nausea / Vomiting Stop: 03/21/18 16:07 Pantoprazole Sodium (Protonix) 40 mg NG DAILY [facility] Stop: 03/28/18 16:59 Last Admin: 01/30/18 09:03 Dose: 40 mg Prednisone (Deltasone) 10 mg PO DAILY [facility] Stop: 03/22/18 08:59 Last Admin: 01/30/18 09:04 Dose: 10 mg Sodium Bicarbonate (Sodium Bicarbonate) 650 mg PO BID [facility] PRN Reason: Protocol Stop: 03/29/18 16:59 Last Admin: 01/30/18 09:03 Dose: 650 mg Sodium Phosphate (Fleet Enema) 135 ml RC DAILY PRN PRN Reason: Constipation Stop: 03/21/18 16:07 Vitamin A (Vitamin A & D) 5 gm TP DAILY [facility] Stop: 03/22/18 08:59 Last Admin: 01/29/18 12:14 Dose: 5 gm General: Other (obtunded) HEENT: Atraumatic Neck: Supple, +2 carotid pulse wo bruit Cardiovascular: Regular rate, Normal S1, Normal S2 Lungs: Other (decreased BS) Abdomen: Bowel sounds, Soft Extremities: Edema Neurological: Sensation intact Skin: no Rash Psych/Mental Status: Other (obtunded) - Procedures Procedures: Procedures Procedure Code Date INSERT EMERGENCY AIRWAY 77368 01/20/18 INSERTION OF ENDOTRACHEAL AIRWAY INTO [place]HE[place], VIA OPENING [id number] 01/20/18 RESPIRATORY VENTILATION, GREATER THAN 96 CONSECUTIVE HOURS [id number] 01/20/18 VENT MGMT INPAT INIT DAY 38007 01/20/18 Assessment/Plan - Problem List Patient Problems: All Active Problems ELEVATED WBC, LUNG INFILTRATES (Acute) Nutritional Asmnt/Malnutr-PDOC - Dietary Evaluation Malnutrition Findings (Please click <Entered> for more info): Nutritional Asmnt/Malnutrition Start: 01/21/18 16: 32 Text: Status: Complete Freq: Document 01/21/18 16:32 LCHENG (Rec: 01/21/18 16:48 [email or web address]) Nutritional Asmnt/Malnutrition Patient General Information Nutritional Screening High Risk Consult Diagnosis left lung infiltrate Pertinent Medical Hx/Surgical Hx dementia, HTN, hyperlipidemia per ER notes, no H&P at this time Subjective Information Pt seen sleeping at time of visit, not able to wake up for lunch. Per COMPENSATION AND BENEFITS ADVISOR, pt only had cereal and scrambled eggs this morning, not able to chew the [place] toast d/t weakness. Current Diet Order/ Nutrition Support low cholesterol 300gm Pertinent Medications D5-0.45ns, novolog, megace, theragran, piperacillin, vit A &D Pertinent Labs 01/21 BUN 32, Glucose 180, POC 142-261 01/20 A1c 5.1, POC 127-165 Nutritional Hx/Data Height 1.6 m Height (Calculated Centimeters) 160.0 Current Weight (lbs) 37.648 kg Weight (Calculated Kilograms) 37.6 Weight (Calculated Grams) 92005.2 [place] Body Weight 115 Body Mass Index (BMI) 14.7 Weight Status Underweight GI Symptoms GI Symptoms None Last BM none Difficult in: None Skin Integrity/Comment: reddened to vagina and coccyx Current %PO Poor (25-49%) Estimated Nutritional Goals Calories/Kcals/Kg 25-30 Kcals Calculated 1945-1697 Protein g/k Protein Calculated 52 Fluid: ml 1300-1560ml (1ml/kcal) Nutritional Problem 2. Problem Problem chewing difficulty Etiology weakness, sleepy Signs/Symptoms: pt need for mech soft diet 1. Problem Problem altered nutrition related lab values Etiology hyperglycemia Signs/Symptoms: Glucose 180, POC 127-261 Intervention/Recommendation Comments 1. Recommend Mech soft ground diet with Boost BID to increase nutrition intake. 2. Monitor PO intake, wt, labs and skin integrity 3. F/U as high risk in 2-3 days, 01/23-01/24 Expected Outcomes/Goals Expected Outcomes/Goals 1. PO intake to meet at least 75% of nutritional needs. 2. Wt stability, skin to remain intact, labs to approach WNL.
[2018-01-30 09:46] LABS: HEMATOCRIT 17.5 % (41.0-60); HEMOGLOBIN 6.1 gm/dL (12-16); WHITE BLOOD COUNT 24.3 Th/cmm (4.8-10.8)
[2018-01-30 09:48] LABS: MANUAL DIFF REQUIRED? YES
[2018-01-30 10:30] LABS: BAND NEUTROPHILE 9 % (0-10); LYMPHOCYTE 11 % (20-50); MONOCYTE 6 % (2-10); NEUTROPHILS 74 % (40-80); TOTAL CELLS COUNTED 100
--- NOTE | 2018-01-30 10:36 | General Progress Note ---
Subjective - Review of Systems Service Date: 01/30/18 Events since last encounter: talked to daughter via phone who does not understand [place] well patient needs Jose Maria catheter placement for HD Objective - Results Result Diagrams: 01/30/18 07:35 01/30/18 05:06 Recent Labs: Laboratory Last Values WBC 24.3 Th/cmm (4.8-10.8) H* 01/30/18 07:35 RBC 1.97 Mil/cmm (3.80-5.20) L 01/30/18 07:35 Hgb 6.1 gm/dL (12-16) L* 01/30/18 07:35 Hct 17.5 % (41.0-60) L* 01/30/18 07:35 MCV 89.0 fl (81-100) 01/30/18 07:35 MCH 31.0 pg (27.0-31.0) 01/30/18 07:35 MCHC Differential 34.8 pg (28.0-36.0) 01/30/18 07:35 RDW 17.3 % (11.5-20.0) 01/30/18 07:35 Plt Count 158 Th/cmm (150-400) 01/30/18 07:35 MPV 8.9 fl 01/30/18 07:35 Neutrophils % 86.6 % (40.0-80.0) H 01/23/18 06:00 Band Neutrophils % 9 % (0-10) 01/30/18 07:35 Lymphocytes % 5.3 % (20.0-50.0) L 01/23/18 06:00 Monocytes % 7.6 % (2.0-10.0) 01/23/18 06:00 Eosinophils % 0.5 % (0.0-5.0) 01/23/18 06:00 Basophils % 0.0 % (0.0-2.0) 01/23/18 06:00 Neutrophils (Manual) 74 % (40-80) 01/30/18 07:35 Lymphocytes 11 % (20-50) L 01/30/18 07:35 Monocytes 6 % (2-10) 01/30/18 07:35 Eosinophils 0 % (0-5) 01/27/18 04:58 Basophils 0 % (0-3) 01/27/18 04:58 Platelet Estimate ADEQUATE (NORMAL) 01/27/18 04:58 Platelet Morphology NORMAL (NORMAL) 01/27/18 04:58 RBC Morph Micro Appear NORMAL (NORMAL) 01/27/18 04:58 Eos Smear Source URINE 01/28/18 17:10 Eos Smear Total Cells NONE SEEN (NONE SEEN) 01/28/18 17:10 PT 9.3 SECONDS (9.5-11.5) L 01/29/18 21:26 INR 0.90 (0.5-1.4) 01/29/18 21:26 PTT (Actin FS) 46.6 SECONDS (26.0-38.0) H 01/29/18 21:26 Specimen Source Arterial 01/24/18 17:45 Sample Site Left Radial 01/24/18 17:45 pH 7.41 (7.35-7.45) 01/24/18 17:45 pCO2 32.0 mmHg (35.0-45.0) L 01/24/18 17:45 pO2 397.0 mmHg (80.0-100.0) H 01/24/18 17:45 HCO3 22.3 mEq/L (20.0-26.0) 01/24/18 17:45 Base Excess -3.5 mEq/L (-3.0-3.0) L 01/24/18 17:45 O2 Saturation 100.0 % (92.0-100.0) 01/24/18 17:45 Bebo Test YES 01/24/18 17:45 Vent Rate 14 01/24/18 17:45 Inspired O2 100 01/24/18 17:45 Tidal Volume 450 01/24/18 17:45 PEEP 5 01/24/18 17:45 Pressure (ins/psv/peep) NA 01/24/18 17:45 Critical Value E.BRIDGES 01/24/18 17:45 Sodium 135 mEq/L (136-145) L 01/30/18 05:06 Potassium 5.5 mEq/L (3.5-5.1) H 01/30/18 05:06 Chloride 111 mEq/L (98-107) H 01/30/18 05:06 Carbon Dioxide 17.6 mEq/L (21.0-31.0) L 01/30/18 05:06 Anion Gap 11.9 (7.0-16.0) 01/30/18 05:06 BUN 54 mg/dL (7-25) H 01/30/18 05:06 Creatinine 2.3 mg/dL (0.6-1.2) H 01/30/18 05:06 Est GFR ( Amer) TNP 01/30/18 05:06 Est GFR (Non-Af Amer) TNP 01/30/18 05:06 BUN/Creatinine Ratio 23.5 01/30/18 05:06 Glucose 116 mg/dL (70-105) H 01/30/18 05:06 POC Glucose 114 MG/DL (70 - 105) H 01/29/18 23:43 Hemoglobin A1c % 5.1 % (4.0-6.0) 01/20/18 12:15 Plasma/Ser Osmolality 287 mOsmol/kg (280-301) 01/28/18 17:45 Whole Bld Lactic Acid 1.50 mmol/L (0.60-1.99) 01/28/18 13:40 Uric Acid 5.3 mg/dL (2.3-6.6) 01/30/18 05:06 Calcium 7.2 mg/dL (8.6-10.3) L 01/30/18 05:06 Phosphorus 3.3 mg/dL (2.5-5.0) 01/30/18 05:06 Magnesium 2.3 mg/dL (1.9-2.7) 01/30/18 05:06 Iron 54 ug/dL (27-139) 01/20/18 12:50 TIBC 159 ug/dL (250-450) L 01/20/18 12:50 Iron Saturation 34 % (15-55) 01/20/18 12:50 Unsaturated IBC 105 ug/dL (118-369) L 01/20/18 12:50 Ferritin 1230 ng/mL (15-150) H 01/20/18 12:50 Total Bilirubin 0.3 mg/dL (0.3-1.0) 01/29/18 05:10 Direct Bilirubin 0.07 mg/dL (0.0-0.2) 01/20/18 12:30 AST 54 U/L (13-39) H 01/29/18 05:10 ALT 93 U/L (7-52) H 01/29/18 05:10 Alkaline Phosphatase 105 U/L (34-104) H 01/29/18 05:10 Troponin I 0.03 ng/mL (0.01-0.05) 01/20/18 12:15 C-Reactive Protein 4.3 mg/dL (0.0-0.9) H 01/20/18 12:50 B-Natriuretic Peptide 185.0 pg/mL (5.0-100.0) H 01/25/18 04:20 Total Protein 3.7 gm/dL (6.0-8.3) L 01/29/18 05:10 Albumin 1.6 gm/dL (3.7-5.3) L 01/29/18 05:10 Globulin 2.1 gm/dL 01/29/18 05:10 Albumin/Globulin Ratio 0.8 (1.0-1.8) L 01/29/18 05:10 Triglycerides 97 mg/dL (<150) 01/20/18 12:15 Cholesterol 195 mg/dL (<200) 01/20/18 12:15 LDL Cholesterol Direct 152 mg/dL (75-193) 01/20/18 12:15 HDL Cholesterol 40 mg/dL (23-92) 01/20/18 12:15 Lipase 108 U/L (11-82) H 01/20/18 12:15 Free T4 1.12 ng/dL (0.82-1.77) 01/20/18 12:50 TSH 0.06 uIU/ml (0.34-5.60) L 01/20/18 12:15 Urine Source [place]APIEN [place] 01/28/18 17:10 Urine Color YELLOW 01/28/18 17:10 Urine Clarity CLOUDY (CLEAR) H 01/28/18 17:10 Urine pH 6.0 (4.6 - 8.0) 01/28/18 17:10 Ur Specific [place] 1.020 (1.005-1.030) 01/28/18 17:10 Urine Protein 100 mg/dL (NEGATIVE) H 01/28/18 17:10 Urine Glucose (UA) NEGATIVE mg/dL (NEGATIVE) 01/28/18 17:10 Urine Ketones NEGATIVE mg/dL (NEGATIVE) 01/28/18 17:10 Urine Blood MODERATE (NEGATIVE) H 01/28/18 17:10 Urine Nitrate NEGATIVE (NEGATIVE) 01/28/18 17:10 Urine Bilirubin NEGATIVE (NEGATIVE) 01/28/18 17:10 Urine Urobilinogen 0.2 E.U./dL (0.2 - 1.0) 01/28/18 17:10 Ur Leukocyte Esterase MODERATE (NEGATIVE) H 01/28/18 17:10 Urine RBC 5-10 /hpf (0-5) H 01/28/18 17:10 Urine WBC 10-25 /hpf (0-5) H 01/28/18 17:10 Ur Epithelial Cells OCCASIONAL /lpf (FEW) 01/28/18 17:10 Urine Bacteria OCCASIONAL /hpf (NONE SEEN) 01/28/18 17:10 Urine Yeast MANY /hpf (NONE SEEN) H 01/28/18 17:10 Ur Random Sodium 56 mmol/L 01/28/18 17:10 Urine Creatinine 39.0 mg/dl (28.0-217.0) 01/28/18 17:10 Vancomycin Trough 27.8 ug/mL (10-20) H 01/26/18 23:00 Random Vancomycin 23.0 ug/mL (5.0-40.0) 01/30/18 05:06 - Physical Exam Vitals and I&O: Vital Signs Temp 98.8 F 01/30/18 04:00 Pulse 71 01/30/18 09:30 Resp 14 01/30/18 06:00 BP 99/46 01/30/18 06:00 Pulse Ox 100 01/30/18 09:30 Intake & Output 01/29/18 01/30/18 01/30/18 18:59 06:59 18:59 Intake Total 100 480 Output Total 150 Balance 100 330 Weight (lbs) 57.266 kg Intake: Intake, IV Amount 100 Meropenem 1 gm In Sodium 100 Chloride 0.9% 100 ml @ 100 mls/hr IV Q12H [facility] Rx #:[id number] Tube Feeding 480 Output: Urine 150 Other: # Bowel Movements 1 Stool Characteristics Soft Liquid Active Medications: Current Medications Acetaminophen (Tylenol) 650 mg PO Q4H PRN PRN Reason: MILD PAIN OR TEMP >100.4 Stop: 03/21/18 16:07 Al Hydrox/Mg Hydrox/Simethicone (Maalox) 30 ml PO Q6HR PRN PRN Reason: GI DISTRESS Stop: 03/21/18 16:28 Albuterol/Ipratropium (Duoneb Neb) 3 ml HHN Q6HRT [facility] Stop: 03/30/18 00:59 Last Admin: 01/30/18 07:22 Dose: 3 ml Artificial Tears (Artificial Tears Ophth Soln) 1 drop EACH EYE Q2HR PRN PRN Reason: Dry Eye Stop: 03/27/18 09:28 Last Admin: 01/26/18 10:13 Dose: 1 drop Atorvastatin Calcium (Lipitor) 80 mg PO HS [facility] PRN Reason: Protocol Stop: 03/21/18 20:59 Last Admin: 01/29/18 21:10 Dose: 80 mg Bisacodyl (Dulcolax 10 Mg Supp) 10 mg RC DAILY PRN PRN Reason: Constipation Stop: 03/21/18 16:07 Carvedilol (Coreg) 12.5 mg PO BID [facility] Stop: 03/21/18 16:59 Last Admin: 01/29/18 17:47 Dose: 12.5 mg Chlorhexidine Gluconate (Peridex) 15 ml MM 0800,2000 [facility] Stop: 03/27/18 07:59 Last Admin: 01/30/18 00:17 Dose: 15 ml Dextrose (D50w) 50 ml IVP PRN PRN PRN Reason: HYPOGLYCEMIA Stop: 03/21/18 16:07 Diltiazem HCl (Cardizem) 60 mg PO Q6HR [facility] Stop: 03/21/18 17:59 Last Admin: 01/30/18 00:00 Dose: Not Given Enalaprilat (Vasotec) 2.5 mg IVP Q6HR PRN PRN Reason: SBP ABOVE 160 Stop: 03/25/18 11:59 Last Admin: 01/24/18 15:13 Dose: 2.5 mg Furosemide (Lasix) 40 mg IVP DAILY [facility] Stop: 02/01/18 09:01 Glucagon (Glucagen) 1 mg IVP PRN PRN PRN Reason: HYPOGLYCEMIA Stop: 03/21/18 16:25 Meropenem 1 gm/ Sodium (Chloride) 100 mls @ 100 mls/hr IV Q12H [facility] Stop: 03/26/18 08:59 Last Admin: 01/29/18 21:20 Dose: 100 mls/hr Phenylephrine HCl 10 mg/ (Sodium Chloride) 250 mls @ 75 mls/hr IV TITR [facility]RI[facility]; 50 MCG/MIN PRN Reason: Protocol Stop: 03/25/18 20:14 Norepinephrine Bitartrate 4 mg (/ Sodium Chloride) 254 mls @ 15.24 mls/hr IV TITR [facility]RI[facility]; 4 MCG/MIN PRN Reason: Protocol Stop: 03/26/18 08:14 Last Titration: 01/27/18 00:22 Dose: 0 mcg/min, 0 mls/hr Fluconazole (Diflucan) 100 mg in 50 mls @ 50 mls/hr IV Q24HR [facility] Stop: 03/30/18 15:59 Last Admin: 01/29/18 20:21 Dose: 50 mls/hr Albumin Human (Albuminar 25%) 25 gm in 100 mls @ 50 mls/hr IV Q8H [facility] Stop: 02/02/18 01:59 Last Admin: 01/30/18 09:05 Dose: 50 mls/hr Vancomycin HCl 1 gm/ Sodium (Chloride) 250 mls @ 165 mls/hr IV ONCE ONE Stop: 01/31/18 10:30 Insulin Aspart (Novolog Insulin Sliding Scale) 0 units SUBQ Q6HR [facility] PRN Reason: Protocol Stop: 03/27/18 00:00 Last Admin: 01/30/18 00:22 Dose: Not Given Magnesium Hydroxide (Milk Of Magnesia) 30 ml PO DAILY PRN PRN Reason: IF NO BM IN TWO DAYS Stop: 03/21/18 16:07 Megestrol Acetate (Megace) 400 mg PO BID [facility] Stop: 03/21/18 16:59 Last Admin: 01/30/18 09:03 Dose: 400 mg Metoprolol Tartrate (Lopressor) 5 mg IV Q4H PRN PRN Reason: Tachycardia Stop: 03/25/18 12:29 Miscellaneous (Vancomycin Iv Per Pharmacy) 1 ea MC PRN [facility] Stop: 03/25/18 17:59 Multivitamins/Vitamin C (Theragran) 1 tab PO DAILY [facility] Stop: 03/22/18 08:59 Last Admin: 01/30/18 09:04 Dose: 1 tab Ondansetron HCl (Zofran Odt) 4 mg PO Q6H PRN PRN Reason: Nausea / Vomiting Stop: 03/21/18 16:07 Pantoprazole Sodium (Protonix) 40 mg NG DAILY [facility] Stop: 05/17/18 16:59 Last Admin: 01/30/18 09:03 Dose: 40 mg Prednisone (Deltasone) 10 mg PO DAILY [facility] Stop: 03/22/18 08:59 Last Admin: 01/30/18 09:04 Dose: 10 mg Sodium Bicarbonate (Sodium Bicarbonate) 650 mg PO BID [facility] PRN Reason: Protocol Stop: 03/29/18 16:59 Last Admin: 01/30/18 09:03 Dose: 650 mg Sodium Phosphate (Fleet Enema) 135 ml RC DAILY PRN PRN Reason: Constipation Stop: 03/21/18 16:07 Vitamin A (Vitamin A & D) 5 gm TP DAILY [facility] Stop: 03/22/18 08:59 Last Admin: 01/29/18 12:14 Dose: 5 gm General: Other (obtunded) HEENT: Atraumatic Neck: Supple, +2 carotid pulse wo bruit Cardiovascular: Regular rate, Normal S1, Normal S2 Lungs: Other (decreased BS) Abdomen: Bowel sounds, Soft Extremities: Edema Neurological: Sensation intact Skin: no Rash Psych/Mental Status: Other (obtunded) - Procedures Procedures: Procedures Procedure Code Date INSERT EMERGENCY AIRWAY 23314 01/20/18 INSERTION OF ENDOTRACHEAL AIRWAY INTO TRACHEA, VIA OPENING [id number] 01/20/18 RESPIRATORY VENTILATION, GREATER THAN 96 CONSECUTIVE HOURS [id number] 01/20/18 VENT MGMT INPAT INIT DAY 92413 01/20/18 Assessment/Plan - Problem List Patient Problems: All Active Problems ELEVATED WBC, LUNG INFILTRATES (Acute) Nutritional Asmnt/Malnutr-PDOC - Dietary Evaluation Malnutrition Findings (Please click <Entered> for more info): Nutritional Asmnt/Malnutrition Start: 01/21/18 16: 32 Text: Status: Complete Freq: Document 01/21/18 16:32 LCHENG (Rec: 01/21/18 16:48 [email or web address] [email or web address]) Nutritional Asmnt/Malnutrition Patient General Information Nutritional Screening High Risk Consult Diagnosis left lung infiltrate Pertinent Medical Hx/Surgical Hx dementia, HTN, hyperlipidemia per ER notes, no H&P at this time Subjective Information Pt seen sleeping at time of visit, not able to wake up for lunch. Per [employer], pt only had cereal and scrambled eggs this morning, not able to chew the [place] toast d/t weakness. Current Diet Order/ Nutrition Support low cholesterol 300gm Pertinent Medications D5-0.45ns, novolog, megace, theragran, piperacillin, vit A &D Pertinent Labs 01/21 BUN 32, Glucose 180, POC 142-261 01/20 A1c 5.1, POC 127-165 Nutritional Hx/Data Height 1.6 m Height (Calculated Centimeters) 160.0 Current Weight (lbs) 37.648 kg Weight (Calculated Kilograms) 37.6 Weight (Calculated Grams) 78938.2 [place] Body Weight 115 Body Mass Index (BMI) 14.7 Weight Status Underweight GI Symptoms GI Symptoms None Last BM none Difficult in: None Skin Integrity/Comment: reddened to vagina and coccyx Current %PO Poor (25-49%) Estimated Nutritional Goals Calories/Kcals/Kg 25-30 Kcals Calculated 2383-4629 Protein g/k Protein Calculated 52 Fluid: ml 1300-1560ml (1ml/kcal) Nutritional Problem 2. Problem Problem chewing difficulty Etiology weakness, sleepy Signs/Symptoms: pt need for mech soft diet 1. Problem Problem altered nutrition related lab values Etiology hyperglycemia Signs/Symptoms: Glucose 180, POC 127-261 Intervention/Recommendation Comments 1. Recommend Mech soft ground diet with Boost BID to increase nutrition intake. 2. Monitor PO intake, wt, labs and skin integrity 3. F/U as high risk in 2-3 days, 01/23-01/24 Expected Outcomes/Goals Expected Outcomes/Goals 1. PO intake to meet at least 75% of nutritional needs. 2. Wt stability, skin to remain intact, labs to approach WNL.
--- NOTE | 2018-01-30 13:09 | Diagnostic Imaging Report ---
CHEST X-RAY: AP view INDICATION: Jose Maria catheter placement COMPARISON: 01/30/2018 at 745 FINDINGS: ET tube and NG tube are stable. Left-sided subclavian central line is seen with in SVC. No evidence of pneumothorax. Congestive changes seen with small bilateral effusions and bibasal infiltrates. There are areas of eventration of the bilateral hemidiaphragms. IMPRESSION: Interval left subclavian central line placement with tip in SVC. No evidence of pneumothorax. Congestive changes and bibasal infiltrates and small effusions.
--- NOTE | 2018-01-30 13:36 | Operative Report ---
DATE OF SURGERY: 01/30/2018 PREOPERATIVE DIAGNOSES: 1. Acute renal failure. 2. Respiratory failure and vent. 3. Hypertension. POSTOPERATIVE DIAGNOSES: 1. Acute renal failure. 2. Respiratory failure and vent. 3. Hypertension. OPERATION DONE: Insertion of Jose Maria catheter, left subclavian vein under ultrasound guidance. DESCRIPTION OF PROCEDURE: The left chest was prepped with ChloraPrep and draped in appropriate manner. Once lidocaine was just infiltrated the area identified. An incision was made and size 18 needle was used to get the vein. The guide was inserted, which in smoothly. The dilator was placed over the guidewire and then the triple lumen catheter. It was anchored to chest wall with 3-0 silk. Portable chest x-ray is ordered. JOB# [id number]
--- NOTE | 2018-01-30 15:34 | Infectious Disease Prog Note ---
Infectious Disease Subjective - Review of Systems Service Date: 01/30/18 Events since last encounter: Patient developed some facial rash. First hemodialysis started today Subjective: No fever, remains intubated orally. on the ventilator support. Infectious Disease Objective - Results Result Diagrams: 01/30/18 07:35 01/30/18 05:06 Recent Labs: Laboratory Last Values WBC 24.3 Th/cmm (4.8-10.8) H* 01/30/18 07:35 RBC 1.97 Mil/cmm (3.80-5.20) L 01/30/18 07:35 Hgb 6.1 gm/dL (12-16) L* 01/30/18 07:35 Hct 17.5 % (41.0-60) L* 01/30/18 07:35 MCV 89.0 fl (81-100) 01/30/18 07:35 MCH 31.0 pg (27.0-31.0) 01/30/18 07:35 MCHC Differential 34.8 pg (28.0-36.0) 01/30/18 07:35 RDW 17.3 % (11.5-20.0) 01/30/18 07:35 Plt Count 158 Th/cmm (150-400) 01/30/18 07:35 MPV 8.9 fl 01/30/18 07:35 Neutrophils % 86.6 % (40.0-80.0) H 01/23/18 06:00 Band Neutrophils % 9 % (0-10) 01/30/18 07:35 Lymphocytes % 5.3 % (20.0-50.0) L 01/23/18 06:00 Monocytes % 7.6 % (2.0-10.0) 01/23/18 06:00 Eosinophils % 0.5 % (0.0-5.0) 01/23/18 06:00 Basophils % 0.0 % (0.0-2.0) 01/23/18 06:00 Neutrophils (Manual) 74 % (40-80) 01/30/18 07:35 Lymphocytes 11 % (20-50) L 01/30/18 07:35 Monocytes 6 % (2-10) 01/30/18 07:35 Eosinophils 0 % (0-5) 01/27/18 04:58 Basophils 0 % (0-3) 01/27/18 04:58 Platelet Estimate ADEQUATE (NORMAL) 01/27/18 04:58 Platelet Morphology NORMAL (NORMAL) 01/27/18 04:58 RBC Morph Micro Appear NORMAL (NORMAL) 01/27/18 04:58 Eos Smear Source URINE 01/28/18 17:10 Eos Smear Total Cells NONE SEEN (NONE SEEN) 01/28/18 17:10 PT 9.3 SECONDS (9.5-11.5) L 01/29/18 21:26 INR 0.90 (0.5-1.4) 01/29/18 21:26 PTT (Actin FS) 46.6 SECONDS (26.0-38.0) H 01/29/18 21:26 Specimen Source Arterial 01/24/18 17:45 Sample Site Left Radial 01/24/18 17:45 pH 7.41 (7.35-7.45) 01/24/18 17:45 pCO2 32.0 mmHg (35.0-45.0) L 01/24/18 17:45 pO2 397.0 mmHg (80.0-100.0) H 01/24/18 17:45 HCO3 22.3 mEq/L (20.0-26.0) 01/24/18 17:45 Base Excess -3.5 mEq/L (-3.0-3.0) L 01/24/18 17:45 O2 Saturation 100.0 % (92.0-100.0) 01/24/18 17:45 Bebo Test YES 01/24/18 17:45 Vent Rate 14 01/24/18 17:45 Inspired O2 100 01/24/18 17:45 Tidal Volume 450 01/24/18 17:45 PEEP 5 01/24/18 17:45 Pressure (ins/psv/peep) NA 01/24/18 17:45 Critical Value E.BRIDGES 01/24/18 17:45 Sodium 135 mEq/L (136-145) L 01/30/18 05:06 Potassium 5.5 mEq/L (3.5-5.1) H 01/30/18 05:06 Chloride 111 mEq/L (98-107) H 01/30/18 05:06 Carbon Dioxide 17.6 mEq/L (21.0-31.0) L 01/30/18 05:06 Anion Gap 11.9 (7.0-16.0) 01/30/18 05:06 BUN 54 mg/dL (7-25) H 01/30/18 05:06 Creatinine 2.3 mg/dL (0.6-1.2) H 01/30/18 05:06 Est GFR ( Amer) TNP 01/30/18 05:06 Est GFR (Non-Af Amer) TNP 01/30/18 05:06 BUN/Creatinine Ratio 23.5 01/30/18 05:06 Glucose 116 mg/dL (70-105) H 01/30/18 05:06 POC Glucose 114 MG/DL (70 - 105) H 01/29/18 23:43 Hemoglobin A1c % 5.1 % (4.0-6.0) 01/20/18 12:15 Plasma/Ser Osmolality 287 mOsmol/kg (280-301) 01/28/18 17:45 Whole Bld Lactic Acid 1.50 mmol/L (0.60-1.99) 01/28/18 13:40 Uric Acid 5.3 mg/dL (2.3-6.6) 01/30/18 05:06 Calcium 7.2 mg/dL (8.6-10.3) L 01/30/18 05:06 Phosphorus 3.3 mg/dL (2.5-5.0) 01/30/18 05:06 Magnesium 2.3 mg/dL (1.9-2.7) 01/30/18 05:06 Iron 54 ug/dL (27-139) 01/20/18 12:50 TIBC 159 ug/dL (250-450) L 01/20/18 12:50 Iron Saturation 34 % (15-55) 01/20/18 12:50 Unsaturated IBC 105 ug/dL (118-369) L 01/20/18 12:50 Ferritin 1230 ng/mL (15-150) H 01/20/18 12:50 Total Bilirubin 0.3 mg/dL (0.3-1.0) 01/29/18 05:10 Direct Bilirubin 0.07 mg/dL (0.0-0.2) 01/20/18 12:30 AST 54 U/L (13-39) H 01/29/18 05:10 ALT 93 U/L (7-52) H 01/29/18 05:10 Alkaline Phosphatase 105 U/L (34-104) H 01/29/18 05:10 Troponin I 0.03 ng/mL (0.01-0.05) 01/20/18 12:15 C-Reactive Protein 4.3 mg/dL (0.0-0.9) H 01/20/18 12:50 B-Natriuretic Peptide 185.0 pg/mL (5.0-100.0) H 01/25/18 04:20 Total Protein 3.7 gm/dL (6.0-8.3) L 01/29/18 05:10 Albumin 1.6 gm/dL (3.7-5.3) L 01/29/18 05:10 Globulin 2.1 gm/dL 01/29/18 05:10 Albumin/Globulin Ratio 0.8 (1.0-1.8) L 01/29/18 05:10 Triglycerides 97 mg/dL (<150) 01/20/18 12:15 Cholesterol 195 mg/dL (<200) 01/20/18 12:15 LDL Cholesterol Direct 152 mg/dL (75-193) 01/20/18 12:15 HDL Cholesterol 40 mg/dL (23-92) 01/20/18 12:15 Lipase 108 U/L (11-82) H 01/20/18 12:15 Free T4 1.12 ng/dL (0.82-1.77) 01/20/18 12:50 TSH 0.06 uIU/ml (0.34-5.60) L 01/20/18 12:15 Urine Source [place] 01/28/18 17:10 Urine Color YELLOW 01/28/18 17:10 Urine Clarity CLOUDY (CLEAR) H 01/28/18 17:10 Urine pH 6.0 (4.6 - 8.0) 01/28/18 17:10 Ur Specific [place] 1.020 (1.005-1.030) 01/28/18 17:10 Urine Protein 100 mg/dL (NEGATIVE) H 01/28/18 17:10 Urine Glucose (UA) NEGATIVE mg/dL (NEGATIVE) 01/28/18 17:10 Urine Ketones NEGATIVE mg/dL (NEGATIVE) 01/28/18 17:10 Urine Blood MODERATE (NEGATIVE) H 01/28/18 17:10 Urine Nitrate NEGATIVE (NEGATIVE) 01/28/18 17:10 Urine Bilirubin NEGATIVE (NEGATIVE) 01/28/18 17:10 Urine Urobilinogen 0.2 E.U./dL (0.2 - 1.0) 01/28/18 17:10 Ur Leukocyte Esterase MODERATE (NEGATIVE) H 01/28/18 17:10 Urine RBC 5-10 /hpf (0-5) H 01/28/18 17:10 Urine WBC 10-25 /hpf (0-5) H 01/28/18 17:10 Ur Epithelial Cells OCCASIONAL /lpf (FEW) 01/28/18 17:10 Urine Bacteria OCCASIONAL /hpf (NONE SEEN) 01/28/18 17:10 Urine Yeast MANY /hpf (NONE SEEN) H 01/28/18 17:10 Ur Random Sodium 56 mmol/L 01/28/18 17:10 Urine Creatinine 39.0 mg/dl (28.0-217.0) 01/28/18 17:10 Vancomycin Trough 27.8 ug/mL (10-20) H 01/26/18 23:00 Random Vancomycin 23.0 ug/mL (5.0-40.0) 01/30/18 05:06 Blood Type O POSITIVE 01/30/18 07:35 Antibody Screen NEGATIVE 01/30/18 07:35 Crossmatch See Detail 01/30/18 07:35 - Physical Exam Vitals and I&O: Vital Signs Temp 98.8 F 01/30/18 04:00 Pulse 70 01/30/18 14:42 Resp 14 01/30/18 06:00 BP 99/46 01/30/18 06:00 Pulse Ox 100 01/30/18 14:42 Intake & Output 01/29/18 01/30/18 01/30/18 18:59 06:59 18:59 Intake Total 100 480 Output Total 150 Balance 100 330 Weight (lbs) 57.266 kg Intake: Intake, IV Amount 100 Meropenem 1 gm In Sodium 100 Chloride 0.9% 100 ml @ 100 mls/hr IV Q12H [facility] Rx #:[id number] Tube Feeding 480 Output: Urine 150 Other: # Bowel Movements 1 Stool Characteristics Soft Liquid Active Medications: Current Medications Acetaminophen (Tylenol) 650 mg PO Q4H PRN PRN Reason: MILD PAIN OR TEMP >100.4 Stop: 03/21/18 16:07 Al Hydrox/Mg Hydrox/Simethicone (Maalox) 30 ml PO Q6HR PRN PRN Reason: GI DISTRESS Stop: 03/21/18 16:28 Albuterol/Ipratropium (Duoneb Neb) [address] [facility] Stop: 03/30/18 00:59 Last Admin: 01/30/18 12:35 Dose: 3 ml Artificial Tears (Artificial Tears Ophth Soln) 1 drop EACH EYE Q2HR PRN PRN Reason: Dry Eye Stop: 03/27/18 09:28 Last Admin: 01/26/18 10:13 Dose: 1 drop Atorvastatin Calcium (Lipitor) 80 mg PO HS [facility] PRN Reason: Protocol Stop: 03/21/18 20:59 Last Admin: 01/29/18 21:10 Dose: 80 mg Bisacodyl (Dulcolax 10 Mg Supp) 10 mg RC DAILY PRN PRN Reason: Constipation Stop: 03/21/18 16:07 Carvedilol (Coreg) 12.[address] [facility] Stop: 03/21/18 16:59 Last Admin: 01/29/18 17:47 Dose: 12.5 mg Chlorhexidine Gluconate (Peridex) 15 ml MM 0800,2000 [facility] Stop: 03/27/18 07:59 Last Admin: 01/30/18 00:17 Dose: 15 ml Dextrose (D50w) 50 ml IVP PRN PRN PRN Reason: HYPOGLYCEMIA Stop: 03/21/18 16:07 Diltiazem HCl (Cardizem) 60 mg PO Q6HR [facility] Stop: 03/21/18 17:59 Last Admin: 01/30/18 00:00 Dose: Not Given Enalaprilat (Vasotec) 2.5 mg IVP Q6HR PRN PRN Reason: SBP ABOVE 160 Stop: 03/25/18 11:59 Last Admin: 01/24/18 15:13 Dose: 2.5 mg Furosemide (Lasix) [address] [facility] Stop: 02/01/18 09:01 Glucagon (Glucagen) 1 mg IVP PRN PRN PRN Reason: HYPOGLYCEMIA Stop: 03/21/18 16:25 Heparin Sodium (Porcine) (Heparin) 1,500 units HD UD [facility] Stop: 02/01/18 00:00 Meropenem 1 gm/ Sodium (Chloride) 100 mls @ 100 mls/hr IV Q12H [facility] Stop: 03/26/18 08:59 Last Admin: 01/29/18 21:20 Dose: 100 mls/hr Phenylephrine HCl 10 mg/ (Sodium Chloride) 250 mls @ 75 mls/hr IV TITR [facility]; 50 MCG/MIN PRN Reason: Protocol Stop: 03/25/18 20:14 Norepinephrine Bitartrate 4 mg (/ Sodium Chloride) 254 mls @ 15.24 mls/hr IV TITR [facility]; 4 MCG/MIN PRN Reason: Protocol Stop: 03/26/18 08:14 Last Titration: 01/27/18 00:22 Dose: 0 mcg/min, 0 mls/hr Fluconazole (Diflucan) 100 mg in 50 mls @ 50 mls/hr IV Q24HR [facility] Stop: 03/30/18 15:59 Last Admin: 01/29/18 20:21 Dose: 50 mls/hr Albumin Human (Albuminar 25%) 25 gm in 100 mls @ 50 mls/hr IV Q8H [facility] Stop: 02/02/18 01:59 Last Admin: 01/30/18 09:05 Dose: 50 mls/hr Vancomycin HCl 1 gm/ Sodium (Chloride) 250 mls @ 165 mls/hr IV ONCE ONE Stop: 01/31/18 10:30 Insulin Aspart (Novolog Insulin Sliding Scale) 0 units SUBQ Q6HR [facility] PRN Reason: Protocol Stop: 03/27/18 00:00 Last Admin: 01/30/18 00:22 Dose: Not Given Magnesium Hydroxide (Milk Of Magnesia) 30 ml PO DAILY PRN PRN Reason: IF NO BM IN TWO DAYS Stop: 03/21/18 16:07 Megestrol Acetate (Megace) [address] [facility] Stop: 03/21/18 16:59 Last Admin: 01/30/18 09:03 Dose: 400 mg Metoprolol Tartrate (Lopressor) 5 mg IV Q4H PRN PRN Reason: Tachycardia Stop: 03/25/18 12:29 Miscellaneous (Vancomycin Iv Per Pharmacy) [address] [facility] Stop: 03/25/18 17:59 Multivitamins/Vitamin C (Theragran) [address] [facility] Stop: 03/22/18 08:59 Last Admin: 01/30/18 09:04 Dose: 1 tab Ondansetron HCl (Zofran Odt) 4 mg PO Q6H PRN PRN Reason: Nausea / Vomiting Stop: 03/21/18 16:07 Pantoprazole Sodium (Protonix) [address] [facility] Stop: 03/28/18 16:59 Last Admin: 01/30/18 09:03 Dose: 40 mg Prednisone (Deltasone) [address] [facility] Stop: 03/22/18 08:59 Last Admin: 01/30/18 09:04 Dose: 10 mg Sodium Bicarbonate (Sodium Bicarbonate) 650 mg PO BID [facility] PRN Reason: Protocol Stop: 03/29/18 16:59 Last Admin: 01/30/18 09:03 Dose: 650 mg Sodium Phosphate (Fleet Enema) 135 ml RC DAILY PRN PRN Reason: Constipation Stop: 03/21/18 16:07 Vitamin A (Vitamin A & D) [address] [facility] Stop: 03/22/18 08:59 Last Admin: 01/29/18 12:14 Dose: 5 gm General: no acute distress, well developed, well nourished HEENT: atraumatic, normocephalic, PERRLA, EOMI Neck: supple, no thyromegaly Cardiovascular: S1S2, regular Lungs: clear to percussion, rhonchi Abdomen: soft, no tender, no distended, no mass Extremities: no cyanosis, no clubbing, no edema Neurological: other (unresponsive. Obtunded.) Skin: intact - Procedures Procedures: Procedures Procedure Code Date INSERT EMERGENCY AIRWAY 24022 01/20/18 INSERTION OF ENDOTRACHEAL AIRWAY INTO [place], VIA OPENING [id number] 01/20/18 RESPIRATORY VENTILATION, GREATER THAN 96 CONSECUTIVE HOURS [id number] 01/20/18 VENT MGMT INPAT INIT DAY 15588 01/20/18 Infectious Disease Assmt/Plan - Problem List Patient Problems: All Active Problems ELEVATED WBC, LUNG INFILTRATES (Acute) - Assessment Assessment: 1. Leukocytosis. suspect sepsis. 2. Pneumonia. L lung. 3. Dementia 4. S/p CP arrest. 5. Anoxic encephalopathy. 6. VDRF. 7. Increaing creatinine. LAURENCE. oliguric. - Plan Plan: Continue vanco IV and meropenem. sepsis w/u. flagyl suspecting c diff at this high WBC count. Nutritional Asmnt/Malnutr-PDOC - Dietary Evaluation Malnutrition Findings (Please click <Entered> for more info): Nutritional Asmnt/Malnutrition Start: 01/21/18 16: 32 Text: Status: Complete Freq: Document 01/21/18 16:32 [id number] (Rec: 01/21/18 16:48 AMITA [id number]) Nutritional Asmnt/Malnutrition Patient General Information Nutritional Screening High Risk Consult Diagnosis left lung infiltrate Pertinent Medical Hx/Surgical Hx dementia, HTN, hyperlipidemia per ER notes, no H&P at this time Subjective Information Pt seen sleeping at time of visit, not able to wake up for lunch. Per [employer]ING [employer]ACHINE [employer], pt only had cereal and scrambled eggs this morning, not able to chew the [place] toast d/t weakness. Current Diet Order/ Nutrition Support low cholesterol 300gm Pertinent Medications D5-0.45ns, novolog, megace, theragran, piperacillin, vit A &D Pertinent Labs 01/21 BUN 32, Glucose 180, POC 142-261 01/20 A1c 5.1, POC 127-165 Nutritional Hx/Data Height 1.6 m Height (Calculated Centimeters) 160.0 Current Weight (lbs) 37.648 kg Weight (Calculated Kilograms) 37.6 Weight (Calculated Grams) 85706.2 [place] Body Weight 115 Body Mass Index (BMI) 14.7 Weight Status Underweight GI Symptoms GI Symptoms None Last BM none Difficult in: None Skin Integrity/Comment: reddened to vagina and coccyx Current %PO Poor (25-49%) Estimated Nutritional Goals Calories/Kcals/Kg 25-30 Kcals Calculated 0323-6562 Protein g/k Protein Calculated 52 Fluid: ml 1300-1560ml (1ml/kcal) Nutritional Problem 2. Problem Problem chewing difficulty Etiology weakness, sleepy Signs/Symptoms: pt need for mech soft diet 1. Problem Problem altered nutrition related lab values Etiology hyperglycemia Signs/Symptoms: Glucose 180, POC 127-261 Intervention/Recommendation Comments 1. Recommend Mech soft ground diet with Boost BID to increase nutrition intake. 2. Monitor PO intake, wt, labs and skin integrity 3. F/U as high risk in 2-3 days, 01/23-01/24 Expected Outcomes/Goals Expected Outcomes/Goals 1. PO intake to meet at least 75% of nutritional needs. 2. Wt stability, skin to remain intact, labs to approach WNL.
--- NOTE | 2018-01-30 15:51 | General Progress Note ---
Subjective - Review of Systems Service Date: 01/30/18 Subjective: barely responsive, on vent Objective - Results Result Diagrams: 01/30/18 07:35 01/30/18 05:06 Recent Labs: Laboratory Last Values WBC 24.3 Th/cmm (4.8-10.8) H* 01/30/18 07:35 RBC 1.97 Mil/cmm (3.80-5.20) L 01/30/18 07:35 Hgb 6.1 gm/dL (12-16) L* 01/30/18 07:35 Hct 17.5 % (41.0-60) L* 01/30/18 07:35 MCV 89.0 fl (81-100) 01/30/18 07:35 MCH 31.0 pg (27.0-31.0) 01/30/18 07:35 MCHC Differential 34.8 pg (28.0-36.0) 01/30/18 07:35 RDW 17.3 % (11.5-20.0) 01/30/18 07:35 Plt Count 158 Th/cmm (150-400) 01/30/18 07:35 MPV 8.9 fl 01/30/18 07:35 Neutrophils % 86.6 % (40.0-80.0) H 01/23/18 06:00 Band Neutrophils % 9 % (0-10) 01/30/18 07:35 Lymphocytes % 5.3 % (20.0-50.0) L 01/23/18 06:00 Monocytes % 7.6 % (2.0-10.0) 01/23/18 06:00 Eosinophils % 0.5 % (0.0-5.0) 01/23/18 06:00 Basophils % 0.0 % (0.0-2.0) 01/23/18 06:00 Neutrophils (Manual) 74 % (40-80) 01/30/18 07:35 Lymphocytes 11 % (20-50) L 01/30/18 07:35 Monocytes 6 % (2-10) 01/30/18 07:35 Eosinophils 0 % (0-5) 01/27/18 04:58 Basophils 0 % (0-3) 01/27/18 04:58 Platelet Estimate ADEQUATE (NORMAL) 01/27/18 04:58 Platelet Morphology NORMAL (NORMAL) 01/27/18 04:58 RBC Morph Micro Appear NORMAL (NORMAL) 01/27/18 04:58 Eos Smear Source URINE 01/28/18 17:10 Eos Smear Total Cells NONE SEEN (NONE SEEN) 01/28/18 17:10 PT 9.3 SECONDS (9.5-11.5) L 01/29/18 21:26 INR 0.90 (0.5-1.4) 01/29/18 21:26 PTT (Actin FS) 46.6 SECONDS (26.0-38.0) H 01/29/18 21:26 Specimen Source Arterial 01/24/18 17:45 Sample Site Left Radial 01/24/18 17:45 pH 7.41 (7.35-7.45) 01/24/18 17:45 pCO2 32.0 mmHg (35.0-45.0) L 01/24/18 17:45 pO2 397.0 mmHg (80.0-100.0) H 01/24/18 17:45 HCO3 22.3 mEq/L (20.0-26.0) 01/24/18 17:45 Base Excess -3.5 mEq/L (-3.0-3.0) L 01/24/18 17:45 O2 Saturation 100.0 % (92.0-100.0) 01/24/18 17:45 Bebo Test YES 01/24/18 17:45 Vent Rate 14 01/24/18 17:45 Inspired O2 100 01/24/18 17:45 Tidal Volume 450 01/24/18 17:45 PEEP 5 01/24/18 17:45 Pressure (ins/psv/peep) NA 01/24/18 17:45 Critical Value E.BRIDGES 01/24/18 17:45 Sodium 135 mEq/L (136-145) L 01/30/18 05:06 Potassium 5.5 mEq/L (3.5-5.1) H 01/30/18 05:06 Chloride 111 mEq/L (98-107) H 01/30/18 05:06 Carbon Dioxide 17.6 mEq/L (21.0-31.0) L 01/30/18 05:06 Anion Gap 11.9 (7.0-16.0) 01/30/18 05:06 BUN 54 mg/dL (7-25) H 01/30/18 05:06 Creatinine 2.3 mg/dL (0.6-1.2) H 01/30/18 05:06 Est GFR ( Amer) TNP 01/30/18 05:06 Est GFR (Non-Af Amer) TNP 01/30/18 05:06 BUN/Creatinine Ratio 23.5 01/30/18 05:06 Glucose 116 mg/dL (70-105) H 01/30/18 05:06 POC Glucose 114 MG/DL (70 - 105) H 01/29/18 23:43 Hemoglobin A1c % 5.1 % (4.0-6.0) 01/20/18 12:15 Plasma/Ser Osmolality 287 mOsmol/kg (280-301) 01/28/18 17:45 Whole Bld Lactic Acid 1.50 mmol/L (0.60-1.99) 01/28/18 13:40 Uric Acid 5.3 mg/dL (2.3-6.6) 01/30/18 05:06 Calcium 7.2 mg/dL (8.6-10.3) L 01/30/18 05:06 Phosphorus 3.3 mg/dL (2.5-5.0) 01/30/18 05:06 Magnesium 2.3 mg/dL (1.9-2.7) 01/30/18 05:06 Iron 54 ug/dL (27-139) 01/20/18 12:50 TIBC 159 ug/dL (250-450) L 01/20/18 12:50 Iron Saturation 34 % (15-55) 01/20/18 12:50 Unsaturated IBC 105 ug/dL (118-369) L 01/20/18 12:50 Ferritin 1230 ng/mL (15-150) H 01/20/18 12:50 Total Bilirubin 0.3 mg/dL (0.3-1.0) 01/29/18 05:10 Direct Bilirubin 0.07 mg/dL (0.0-0.2) 01/20/18 12:30 AST 54 U/L (13-39) H 01/29/18 05:10 ALT 93 U/L (7-52) H 01/29/18 05:10 Alkaline Phosphatase 105 U/L (34-104) H 01/29/18 05:10 Troponin I 0.03 ng/mL (0.01-0.05) 01/20/18 12:15 C-Reactive Protein 4.3 mg/dL (0.0-0.9) H 01/20/18 12:50 B-Natriuretic Peptide 185.0 pg/mL (5.0-100.0) H 01/25/18 04:20 Total Protein 3.7 gm/dL (6.0-8.3) L 01/29/18 05:10 Albumin 1.6 gm/dL (3.7-5.3) L 01/29/18 05:10 Globulin 2.1 gm/dL 01/29/18 05:10 Albumin/Globulin Ratio 0.8 (1.0-1.8) L 01/29/18 05:10 Triglycerides 97 mg/dL (<150) 01/20/18 12:15 Cholesterol 195 mg/dL (<200) 01/20/18 12:15 LDL Cholesterol Direct 152 mg/dL (75-193) 01/20/18 12:15 HDL Cholesterol 40 mg/dL (23-92) 01/20/18 12:15 Lipase 108 U/L (11-82) H 01/20/18 12:15 Free T4 1.12 ng/dL (0.82-1.77) 01/20/18 12:50 TSH 0.06 uIU/ml (0.34-5.60) L 01/20/18 12:15 Urine Source ZAPIEN [place] 01/28/18 17:10 Urine Color YELLOW 01/28/18 17:10 Urine Clarity CLOUDY (CLEAR) H 01/28/18 17:10 Urine pH 6.0 (4.6 - 8.0) 01/28/18 17:10 Ur Specific Key[place] 1.020 (1.005-1.030) 01/28/18 17:10 Urine Protein 100 mg/dL (NEGATIVE) H 01/28/18 17:10 Urine Glucose (UA) NEGATIVE mg/dL (NEGATIVE) 01/28/18 17:10 Urine Ketones NEGATIVE mg/dL (NEGATIVE) 01/28/18 17:10 Urine Blood MODERATE (NEGATIVE) H 01/28/18 17:10 Urine Nitrate NEGATIVE (NEGATIVE) 01/28/18 17:10 Urine Bilirubin NEGATIVE (NEGATIVE) 01/28/18 17:10 Urine Urobilinogen 0.2 E.U./dL (0.2 - 1.0) 01/28/18 17:10 Ur Leukocyte Esterase MODERATE (NEGATIVE) H 01/28/18 17:10 Urine RBC 5-10 /hpf (0-5) H 01/28/18 17:10 Urine WBC 10-25 /hpf (0-5) H 01/28/18 17:10 Ur Epithelial Cells OCCASIONAL /lpf (FEW) 01/28/18 17:10 Urine Bacteria OCCASIONAL /hpf (NONE SEEN) 01/28/18 17:10 Urine Yeast MANY /hpf (NONE SEEN) H 01/28/18 17:10 Ur Random Sodium 56 mmol/L 01/28/18 17:10 Urine Creatinine 39.0 mg/dl (28.0-217.0) 01/28/18 17:10 Vancomycin Trough 27.8 ug/mL (10-20) H 01/26/18 23:00 Random Vancomycin 23.0 ug/mL (5.0-40.0) 01/30/18 05:06 Blood Type O POSITIVE 01/30/18 07:35 Antibody Screen NEGATIVE 01/30/18 07:35 Crossmatch See Detail 01/30/18 07:35 - Physical Exam Vitals and I&O: Vital Signs Temp 98.8 F 01/30/18 04:00 Pulse 70 01/30/18 14:42 Resp 14 01/30/18 06:00 BP 99/46 01/30/18 06:00 Pulse Ox 100 01/30/18 14:42 Intake & Output 01/29/18 01/30/18 01/30/18 18:59 06:59 18:59 Intake Total 100 480 Output Total 150 Balance 100 330 Weight (lbs) 57.266 kg Intake: Intake, IV Amount 100 Meropenem 1 gm In Sodium 100 Chloride 0.9% 100 ml @ 100 mls/hr IV Q12H [facility] Rx #:[id number] Tube Feeding 480 Output: Urine 150 Other: # Bowel Movements 1 Stool Characteristics Soft Liquid Active Medications: Current Medications Acetaminophen (Tylenol) 650 mg PO Q4H PRN PRN Reason: MILD PAIN OR TEMP >100.4 Stop: 03/21/18 16:07 Al Hydrox/Mg Hydrox/Simethicone (Maalox) 30 ml PO Q6HR PRN PRN Reason: GI DISTRESS Stop: 03/21/18 16:28 Albuterol/Ipratropium (Duoneb Neb) 3 ml HHN Q6HRT [facility] Stop: 03/30/18 00:59 Last Admin: 01/30/18 12:35 Dose: 3 ml Artificial Tears (Artificial Tears Ophth Soln) 1 drop EACH EYE Q2HR PRN PRN Reason: Dry Eye Stop: 03/27/18 09:28 Last Admin: 01/26/18 10:13 Dose: 1 drop Atorvastatin Calcium (Lipitor) 80 mg PO HS [facility] PRN Reason: Protocol Stop: 03/21/18 20:59 Last Admin: 01/29/18 21:10 Dose: 80 mg Bisacodyl (Dulcolax 10 Mg Supp) 10 mg RC DAILY PRN PRN Reason: Constipation Stop: 03/21/18 16:07 Carvedilol (Coreg) 12.5 mg PO BID [facility] Stop: 03/21/18 16:59 Last Admin: 01/29/18 17:47 Dose: 12.5 mg Chlorhexidine Gluconate (Peridex) 15 ml MM 0800,2000 [facility] Stop: 03/27/18 07:59 Last Admin: 01/30/18 00:17 Dose: 15 ml Dextrose (D50w) 50 ml IVP PRN PRN PRN Reason: HYPOGLYCEMIA Stop: 03/21/18 16:07 Diltiazem HCl (Cardizem) 60 mg PO Q6HR [facility] Stop: 03/21/18 17:59 Last Admin: 01/30/18 00:00 Dose: Not Given Enalaprilat (Vasotec) 2.5 mg IVP Q6HR PRN PRN Reason: SBP ABOVE 160 Stop: 03/25/18 11:59 Last Admin: 01/24/18 15:13 Dose: 2.5 mg Furosemide (Lasix) 40 mg IVP DAILY [facility] Stop: 02/01/18 09:01 Glucagon (Glucagen) 1 mg IVP PRN PRN PRN Reason: HYPOGLYCEMIA Stop: 03/21/18 16:25 Heparin Sodium (Porcine) (Heparin) 1,500 units HD UD [facility] Stop: 02/01/18 00:00 Meropenem 1 gm/ Sodium (Chloride) 100 mls @ 100 mls/hr IV Q12H [facility] Stop: 03/26/18 08:59 Last Admin: 01/29/18 21:20 Dose: 100 mls/hr Phenylephrine HCl 10 mg/ (Sodium Chloride) 250 mls @ 75 mls/hr IV TITR [facility]; 50 MCG/MIN PRN Reason: Protocol Stop: 03/25/18 20:14 Norepinephrine Bitartrate 4 mg (/ Sodium Chloride) 254 mls @ 15.24 mls/hr IV TITR [facility]; 4 MCG/MIN PRN Reason: Protocol Stop: 03/26/18 08:14 Last Titration: 01/27/18 00:22 Dose: 0 mcg/min, 0 mls/hr Fluconazole (Diflucan) 100 mg in 50 mls @ 50 mls/hr IV Q24HR [facility] Stop: 03/30/18 15:59 Last Admin: 01/29/18 20:21 Dose: 50 mls/hr Albumin Human (Albuminar 25%) 25 gm in 100 mls @ 50 mls/hr IV Q8H [facility] Stop: 02/02/18 01:59 Last Admin: 01/30/18 09:05 Dose: 50 mls/hr Vancomycin HCl 1 gm/ Sodium (Chloride) 250 mls @ 165 mls/hr IV ONCE ONE Stop: 01/31/18 10:30 Metronidazole (Flagyl) 500 mg in 100 mls @ 100 mls/hr IV Q8HR [facility] Stop: 03/31/18 20:59 Insulin Aspart (Novolog Insulin Sliding Scale) 0 units SUBQ Q6HR [facility] PRN Reason: Protocol Stop: 03/27/18 00:00 Last Admin: 01/30/18 00:22 Dose: Not Given Magnesium Hydroxide (Milk Of Magnesia) 30 ml PO DAILY PRN PRN Reason: IF NO BM IN TWO DAYS Stop: 03/21/18 16:07 Megestrol Acetate (Megace) 400 mg PO BID [facility] Stop: 03/21/18 16:59 Last Admin: 01/30/18 09:03 Dose: 400 mg Metoprolol Tartrate (Lopressor) 5 mg IV Q4H PRN PRN Reason: Tachycardia Stop: 03/25/18 12:29 Miscellaneous (Vancomycin Iv Per Pharmacy) 1 ea MC PRN [facility] Stop: 03/25/18 17:59 Multivitamins/Vitamin C (Theragran) 1 tab PO DAILY [facility] Stop: 03/22/18 08:59 Last Admin: 01/30/18 09:04 Dose: 1 tab Ondansetron HCl (Zofran Odt) 4 mg PO Q6H PRN PRN Reason: Nausea / Vomiting Stop: 03/21/18 16:07 Pantoprazole Sodium (Protonix) 40 mg NG DAILY [facility] Stop: 03/28/18 16:59 Last Admin: 01/30/18 09:03 Dose: 40 mg Prednisone (Deltasone) 10 mg PO DAILY [facility] Stop: 03/22/18 08:59 Last Admin: 01/30/18 09:04 Dose: 10 mg Sodium Bicarbonate (Sodium Bicarbonate) 650 mg PO BID [facility] PRN Reason: Protocol Stop: 03/29/18 16:59 Last Admin: 01/30/18 09:03 Dose: 650 mg Sodium Phosphate (Fleet Enema) 135 ml RC DAILY PRN PRN Reason: Constipation Stop: 03/21/18 16:07 Vitamin A (Vitamin A & D) 5 gm TP DAILY [facility] Stop: 03/22/18 08:59 Last Admin: 01/29/18 12:14 Dose: 5 gm General: Moderate distress, Other (obtunded) HEENT: Atraumatic Neck: Supple, +2 carotid pulse wo bruit Cardiovascular: Regular rate, Normal S1, Normal S2 Lungs: Other (decreased BS, coarse rhonchi) Abdomen: Bowel sounds, Soft Extremities: Edema Neurological: Sensation intact Skin: no Rash Psych/Mental Status: Other (obtunded) - Procedures Procedures: Procedures Procedure Code Date INSERT EMERGENCY AIRWAY 91384 01/20/18 INSERTION OF ENDOTRACHEAL AIRWAY INTO TRACHEA, VIA OPENING [id number] 01/20/18 RESPIRATORY VENTILATION, GREATER THAN 96 CONSECUTIVE HOURS [id number] 01/20/18 VENT MGMT INPAT INIT DAY 55990 01/20/18 Assessment/Plan - Problem List Patient Problems: All Active Problems ELEVATED WBC, LUNG INFILTRATES (Acute) - Assessment Assessment: LAURENCE Anuric Cortical injury Sepsis B/L Chronic Lung Infiltrates Acute Resp Failure 2/2 Copd P. A. Fib Anemia of CD non Gap met acid yeast UTI - Plan Plan: Lab - Result Diagrams 01/29/18 05:10 01/29/18 05:10 Current Medications Acetaminophen (Tylenol) 650 mg PO Q4H PRN PRN Reason: MILD PAIN OR TEMP >100.4 Stop: 03/21/18 16:07 Al Hydrox/Mg Hydrox/Simethicone (Maalox) 30 ml PO Q6HR PRN PRN Reason: GI DISTRESS Stop: 03/21/18 16:28 Albuterol/Ipratropium (Duoneb Neb) 3 ml HHN Q6HRT [facility] Stop: 03/30/18 00:59 Last Admin: 01/29/18 13:21 Dose: 3 ml Artificial Tears (Artificial Tears Ophth Soln) 1 drop EACH EYE Q2HR PRN PRN Reason: Dry Eye Stop: 03/27/18 09:28 Last Admin: 01/26/18 10:13 Dose: 1 drop Atorvastatin Calcium (Lipitor) 80 mg PO HS [facility] PRN Reason: Protocol Stop: 03/21/18 20:59 Last Admin: 01/28/18 20:32 Dose: 80 mg Bisacodyl (Dulcolax 10 Mg Supp) 10 mg RC DAILY PRN PRN Reason: Constipation Stop: 03/21/18 16:07 Carvedilol (Coreg) 12.5 mg PO BID [facility] Stop: 03/21/18 16:59 Last Admin: 01/29/18 08:10 Dose: 12.5 mg Chlorhexidine Gluconate (Peridex) 15 ml MM 0800,2000 [facility] Stop: 03/27/18 07:59 Last Admin: 01/29/18 08:00 Dose: 15 ml Dextrose (D50w) 50 ml IVP PRN PRN PRN Reason: HYPOGLYCEMIA Stop: 03/21/18 16:07 Diltiazem HCl (Cardizem) 60 mg PO Q6HR [facility] Stop: 03/21/18 17:59 Last Admin: 01/29/18 12:10 Dose: 60 mg Enalaprilat (Vasotec) 2.5 mg IVP Q6HR PRN PRN Reason: SBP ABOVE 160 Stop: 03/25/18 11:59 Last Admin: 01/24/18 15:13 Dose: 2.5 mg Glucagon (Glucagen) 1 mg IVP PRN PRN PRN Reason: HYPOGLYCEMIA Stop: 03/21/18 16:25 Meropenem 1 gm/ Sodium (Chloride) 100 mls @ 100 mls/hr IV Q12H [facility] Stop: 03/26/18 08:59 Last Infusion: 01/29/18 10:30 Dose: Infused Phenylephrine HCl 10 mg/ (Sodium Chloride) 250 mls @ 75 mls/hr IV TITR [facility]; 50 MCG/MIN PRN Reason: Protocol Stop: 03/25/18 20:14 Norepinephrine Bitartrate 4 mg (/ Sodium Chloride) 254 mls @ 15.24 mls/hr IV TITR [facility]; 4 MCG/MIN PRN Reason: Protocol Stop: 03/26/18 08:14 Last Titration: 01/27/18 00:22 Dose: 0 mcg/min, 0 mls/hr Potassium Chloride/Dextrose/Sod Cl (D5-0.9ns W/Kcl 20meq) 1,000 mls @ 75 mls/ hr IV .[id number] [facility] Stop: 03/28/18 14:06 Last Admin: 01/29/18 12:54 Dose: 125 mls/hr Insulin Aspart (Novolog Insulin Sliding Scale) 0 units SUBQ Q6HR [facility] PRN Reason: Protocol Stop: 03/27/18 00:00 Last Admin: 01/29/18 12:09 Dose: 2 units Magnesium Hydroxide (Milk Of Magnesia) 30 ml PO DAILY PRN PRN Reason: IF NO BM IN TWO DAYS Stop: 03/21/18 16:07 Megestrol Acetate (Megace) 400 mg PO BID [facility] Stop: 03/21/18 16:59 Last Admin: 01/29/18 08:10 Dose: 400 mg Metoprolol Tartrate (Lopressor) 5 mg IV Q4H PRN PRN Reason: Tachycardia Stop: 03/25/18 12:29 Miscellaneous (Vancomycin Iv Per Pharmacy) 1 ea MC PRN [facility] Stop: 03/25/18 17:59 Multivitamins/Vitamin C (Theragran) 1 tab PO DAILY [facility] Stop: 03/22/18 08:59 Last Admin: 01/29/18 08:10 Dose: 1 tab Ondansetron HCl (Zofran Odt) 4 mg PO Q6H PRN PRN Reason: Nausea / Vomiting Stop: 03/21/18 16:07 Pantoprazole Sodium (Protonix) 40 mg NG DAILY [facility] Stop: 03/28/18 16:59 Last Admin: 01/29/18 08:10 Dose: 40 mg Prednisone (Deltasone) 10 mg PO DAILY [facility] Stop: 03/22/18 08:59 Last Admin: 01/29/18 08:10 Dose: 10 mg Sodium Bicarbonate (Sodium Bicarbonate) 650 mg PO BID [facility] PRN Reason: Protocol Stop: 03/29/18 16:59 Last Admin: 01/29/18 08:10 Dose: 650 mg Sodium Phosphate (Fleet Enema) 135 ml RC DAILY PRN PRN Reason: Constipation Stop: 03/21/18 16:07 Vitamin A (Vitamin A & D) 5 gm TP DAILY [facility] Stop: 03/22/18 08:59 Last Admin: 01/29/18 12:14 Dose: 5 gm Lab - Result Diagrams 01/30/18 07:35 01/30/18 05:06 kidney fnc worse, now anuric retaining fluid decrease IVF & DC K replace Ca, P04, Mg start Diflucan on top of Meropenem may need dialysis WBC down to 24 administer NaHC03 initiated on HD due to anuria, fluid retention, acidosis, hyperkalemia transfuse 3 U PRBC Nutritional Asmnt/Malnutr-PDOC - Dietary Evaluation Malnutrition Findings (Please click <Entered> for more info): Nutritional Asmnt/Malnutrition Start: 01/21/18 16: 32 Text: Status: Complete Freq: Document 01/21/18 16:32 LCHENG (Rec: 01/21/18 16:48 LCHENG [email or web address]) Nutritional Asmnt/Malnutrition Patient General Information Nutritional Screening High Risk Consult Diagnosis left lung infiltrate Pertinent Medical Hx/Surgical Hx dementia, HTN, hyperlipidemia per ER notes, no H&P at this time Subjective Information Pt seen sleeping at time of visit, not able to wake up for lunch. Per EP TECH, pt only had cereal and scrambled eggs this morning, not able to chew the Yi toast d/t weakness. Current Diet Order/ Nutrition Support low cholesterol 300gm Pertinent Medications D5-0.45ns, novolog, megace, theragran, piperacillin, vit A &D Pertinent Labs 01/21 BUN 32, Glucose 180, POC 142-261 01/20 A1c 5.1, POC 127-165 Nutritional Hx/Data Height 1.6 m Height (Calculated Centimeters) 160.0 Current Weight (lbs) 37.648 kg Weight (Calculated Kilograms) 37.6 Weight (Calculated Grams) 76870.2 [place] Body Weight 115 Body Mass Index (BMI) 14.7 Weight Status Underweight GI Symptoms GI Symptoms None Last BM none Difficult in: None Skin Integrity/Comment: reddened to vagina and coccyx Current %PO Poor (25-49%) Estimated Nutritional Goals Calories/Kcals/Kg 25-30 Kcals Calculated 2549-8014 Protein g/k Protein Calculated 52 Fluid: ml 1300-1560ml (1ml/kcal) Nutritional Problem 2. Problem Problem chewing difficulty Etiology weakness, sleepy Signs/Symptoms: pt need for mech soft diet 1. Problem Problem altered nutrition related lab values Etiology hyperglycemia Signs/Symptoms: Glucose 180, POC 127-261 Intervention/Recommendation Comments 1. Recommend Mech soft ground diet with Boost BID to increase nutrition intake. 2. Monitor PO intake, wt, labs and skin integrity 3. F/U as high risk in 2-3 days, 01/23-01/24 Expected Outcomes/Goals Expected Outcomes/Goals 1. PO intake to meet at least 75% of nutritional needs. 2. Wt stability, skin to remain intact, labs to approach WNL.
--- NOTE | 2018-01-30 16:26 | Consultation ---
DATE OF CONSULTATION: 01/30/2018 VASCULAR CONSULTATION PHYSICIAN: Dr. Thomson. REASON FOR CONSULTATION: Catheter placement for hemodialysis. Thank you for referring this patient to me. This is an 82-year-old female with hypertension and pneumonia, now intubated. She has Alzheimer disease, dyslipidemia, and hypertension. Because of increasing renal failure, recommendation for dialysis was given and the family has agreed. The daughter is at bedside and informed consent discussed regarding possible complications and the process of placing the Jose Maria catheter. She understands and will proceed with the operation. JOB# [id number]
[2018-01-30] MEDS: Fluconazole 100mg/50mL 100 MG/50 ML BOTTLE IV SCH ×2 (16:59→21:34)
[2018-01-30] MEDS: Meropenem 1 GM in Sodium Chloride 0.9% 100 ML IV SCH ×2 (17:01→21:12)
--- NOTE | 2018-01-30 19:52 | Progress Notes ---
DATE: 01/30/2018 UROLOGY FOLLOWUP SUBJECTIVE: The patient remains in the ICU, but has started dialysis today through Jose Maria catheter placed this morning. She is oliguric and in renal failure. Apparently, the family insists on doing "everything" and wanted to the dialysis to be started. Meanwhile, she remains comatose, has been off the vasopressors and requires Cardizem once in a while. She is getting NG tube feedings and tolerating it. OBJECTIVE: GENERAL: She is comatose. VITAL SIGNS: Heart rate 70, blood pressure 99/46 and temperature 98.8. ABDOMEN: Soft. No masses. EXTREMITIES: Edematous. The patient remains on the ventilator. LABORATORY DATA: White count is still elevated to 24.3, but better than 36.2 yesterday and hemoglobin 6.1, further deteriorated, will probably require blood transfusion. BUN went up to 54, creatinine to 2.3 before the dialysis. IMPRESSION: Oliguric renal failure, now starting on dialysis with multiple comorbidities and very poor prognosis. Decubitus. No change in respiratory failure from pneumonia, on the ventilator, no change. Septic shock improved with vasopressors, discontinued. White count remains elevated, but slightly improved. Dialysis was initiated. JOB# [id number]
[2018-01-30] MEDS: metroNIDAZOLE 500mg/NS 100mL 500 MG/100 ML BAG IV SCH (21:10)
[2018-01-31] MEDS: Albumin 25% 25gm/100mL 25 GM/100 ML BTL IV SCH ×4 (00:25→23:35)
[2018-01-31] MEDS: INSULIN ASPART SLIDING SCALE 100 UNITS/ML UNIT SUBQ SCH ×5 (00:30→23:34)
[2018-01-31] MEDS: Albuterol/Ipratropium Neb 3 ML AERS HHN SCH ×4 (01:28→18:20)
[2018-01-31 04:42] LABS: EOSINOPHILE ABSOLUTE 0.2 Th/cmm (0.1-0.4); LYMPHOCYTE ABSOLUTE 0.7 Th/cmm (1.5-3.0); MANUAL DIFF REQUIRED? YES
[2018-01-31 04:50] LABS: HEMATOCRIT 40.6 % (41.0-60); MEAN CELL VOLUME 89.9 fl (81-100); MEAN CORPUSCULAR HEMOGLOBIN 31.3 pg (27.0-31.0); MEAN CORPUSCULAR HGB CONC 34.8 pg (28.0-36.0); MEAN PLATELET VOLUME 9.7 fl; MONOCYTE ABSOLUTE 1.4 Th/cmm (0.3-1.0); NEUTROPHILE ABSOLUTE 18.2 Th/cmm (1.8-8.0); PLATELET COUNT 111 Th/cmm (150-400); RED BLOOD COUNT 4.52 Mil/cmm (3.80-5.20); RED CELL DISTRIBUTION WIDTH 14.7 % (11.5-20.0)
[2018-01-31 04:58] LABS: ANION GAP 12.7 (7.0-16.0); BUN - UREA NITROGEN 37 mg/dL (7-25); CALCIUM SERUM 7.8 mg/dL (8.6-10.3); CARBON DIOXIDE 23.2 mEq/L (21.0-31.0); CHLORIDE 106 mEq/L (98-107); CREATININE - SERUM 1.6 mg/dL (0.6-1.2); GLUCOSE 100 mg/dL (70-105); POTASSIUM SERUM 3.9 mEq/L (3.5-5.1); SODIUM SERUM 138 mEq/L (136-145)
[2018-01-31 05:00] LABS: HEMOGLOBIN 14.2 gm/dL (12-16); WHITE BLOOD COUNT 20.5 Th/cmm (4.8-10.8)
[2018-01-31] MEDS: metroNIDAZOLE 500mg/NS 100mL 500 MG/100 ML BAG IV SCH ×3 (05:18→22:10)
[2018-01-31 05:53] LABS: BAND NEUTROPHILE 5 % (0-10); NEUTROPHILS 83 % (40-80); TOTAL CELLS COUNTED 100
[2018-01-31 05:54] LABS: LYMPHOCYTE 8 % (20-50); MONOCYTE 4 % (2-10); PLATELET ESTIMATE SLIGHT DECREASED (NORMAL)
[2018-01-31] MEDS: Diltiazem 30 mg Tab PO SCH ×5 (06:19→23:13)
--- NOTE | 2018-01-31 08:38 | Diagnostic Imaging Report ---
Exam: Portable examination of chest. HISTORY: Postdialysis. Findings: Portable examination of the chest at 0750 hours reviewed compared to prior study of 01/30/2018 demonstrates unchanged position of tubes and lines. Mediastinal structures midline the heart is not enlarged the aortic arch calcified. Pleural thickening of the bases is noted. Mild congestion is present. IMPRESSION: Essentially unchanged compared to prior study day earlier, atelectasis pleural thickening Mild congestive heart failure. Follow-up examination recommended
--- NOTE | 2018-01-31 08:42 | General Progress Note ---
Subjective - Review of Systems Events since last encounter: ng tube feeding no signs of discomfort Objective - Results Result Diagrams: 01/31/18 04:10 01/31/18 04:10 Recent Labs: Laboratory Last Values WBC 20.5 Th/cmm (4.8-10.8) H* 01/31/18 04:10 RBC 4.52 Mil/cmm (3.80-5.20) 01/31/18 04:10 Hgb 14.2 gm/dL (12-16) D 01/31/18 04:10 Hct 40.6 % (41.0-60) L D 01/31/18 04:10 MCV 89.9 fl (81-100) 01/31/18 04:10 MCH 31.3 pg (27.0-31.0) H 01/31/18 04:10 MCHC Differential 34.8 pg (28.0-36.0) 01/31/18 04:10 RDW 14.7 % (11.5-20.0) 01/31/18 04:10 Plt Count 111 Th/cmm (150-400) L 01/31/18 04:10 MPV 9.7 fl 01/31/18 04:10 Neutrophils % KEY OPERATOR 01/31/18 04:10 Band Neutrophils % 5 % (0-10) 01/31/18 04:10 Lymphocytes % KEY OPERATOR 01/31/18 04:10 Monocytes % KEY OPERATOR 01/31/18 04:10 Eosinophils % 0.5 % (0.0-5.0) 01/23/18 06:00 Basophils % 0.0 % (0.0-2.0) 01/23/18 06:00 Neutrophils (Manual) 83 % (40-80) H 01/31/18 04:10 Lymphocytes 8 % (20-50) L 01/31/18 04:10 Monocytes 4 % (2-10) 01/31/18 04:10 Eosinophils 0 % (0-5) 01/27/18 04:58 Basophils 0 % (0-3) 01/27/18 04:58 Platelet Estimate SLIGHT DECREASED (NORMAL) 01/31/18 04:10 Platelet Morphology NORMAL (NORMAL) 01/27/18 04:58 RBC Morph Micro Appear NORMAL (NORMAL) 01/27/18 04:58 Eos Smear Source URINE 01/28/18 17:10 Eos Smear Total Cells NONE SEEN (NONE SEEN) 01/28/18 17:10 PT 9.3 SECONDS (9.5-11.5) L 01/29/18 21:26 INR 0.90 (0.5-1.4) 01/29/18 21:26 PTT (Actin FS) 46.6 SECONDS (26.0-38.0) H 01/29/18 21:26 Specimen Source Arterial 01/24/18 17:45 Sample Site Left Radial 01/24/18 17:45 pH 7.41 (7.35-7.45) 01/24/18 17:45 pCO2 32.0 mmHg (35.0-45.0) L 01/24/18 17:45 pO2 397.0 mmHg (80.0-100.0) H 01/24/18 17:45 HCO3 22.3 mEq/L (20.0-26.0) 01/24/18 17:45 Base Excess -3.5 mEq/L (-3.0-3.0) L 01/24/18 17:45 O2 Saturation 100.0 % (92.0-100.0) 01/24/18 17:45 Bebo Test YES 01/24/18 17:45 Vent Rate 14 01/24/18 17:45 Inspired O2 100 01/24/18 17:45 Tidal Volume 450 01/24/18 17:45 PEEP 5 01/24/18 17:45 Pressure (ins/psv/peep) NA 01/24/18 17:45 Critical Value E.BRIDGES 01/24/18 17:45 Sodium 138 mEq/L (136-145) 01/31/18 04:10 Potassium 3.9 mEq/L (3.5-5.1) 01/31/18 04:10 Chloride 106 mEq/L (98-107) 01/31/18 04:10 Carbon Dioxide 23.2 mEq/L (21.0-31.0) 01/31/18 04:10 Anion Gap 12.7 (7.0-16.0) 01/31/18 04:10 BUN 37 mg/dL (7-25) H 01/31/18 04:10 Creatinine 1.6 mg/dL (0.6-1.2) H 01/31/18 04:10 Est GFR ( Amer) TNP 01/31/18 04:10 Est GFR (Non-Af Amer) TNP 01/31/18 04:10 BUN/Creatinine Ratio 23.1 01/31/18 04:10 Glucose 100 mg/dL (70-105) 01/31/18 04:10 POC Glucose 73 MG/DL (70 - 105) 01/31/18 00:32 Hemoglobin A1c % 5.1 % (4.0-6.0) 01/20/18 12:15 Plasma/Ser Osmolality 287 mOsmol/kg (280-301) 01/28/18 17:45 Whole Bld Lactic Acid 1.50 mmol/L (0.60-1.99) 01/28/18 13:40 Uric Acid 5.3 mg/dL (2.3-6.6) 01/30/18 05:06 Calcium 7.8 mg/dL (8.6-10.3) L 01/31/18 04:10 Phosphorus 3.3 mg/dL (2.5-5.0) 01/30/18 05:06 Magnesium 2.3 mg/dL (1.9-2.7) 01/30/18 05:06 Iron 54 ug/dL (27-139) 01/20/18 12:50 TIBC 159 ug/dL (250-450) L 01/20/18 12:50 Iron Saturation 34 % (15-55) 01/20/18 12:50 Unsaturated IBC 105 ug/dL (118-369) L 01/20/18 12:50 Ferritin 1230 ng/mL (15-150) H 01/20/18 12:50 Total Bilirubin 0.3 mg/dL (0.3-1.0) 01/29/18 05:10 Direct Bilirubin 0.07 mg/dL (0.0-0.2) 01/20/18 12:30 AST 54 U/L (13-39) H 01/29/18 05:10 ALT 93 U/L (7-52) H 01/29/18 05:10 Alkaline Phosphatase 105 U/L (34-104) H 01/29/18 05:10 Troponin I 0.03 ng/mL (0.01-0.05) 01/20/18 12:15 C-Reactive Protein 4.3 mg/dL (0.0-0.9) H 01/20/18 12:50 B-Natriuretic Peptide 185.0 pg/mL (5.0-100.0) H 01/25/18 04:20 Total Protein 3.7 gm/dL (6.0-8.3) L 01/29/18 05:10 Albumin 1.6 gm/dL (3.7-5.3) L 01/29/18 05:10 Globulin 2.1 gm/dL 01/29/18 05:10 Albumin/Globulin Ratio 0.8 (1.0-1.8) L 01/29/18 05:10 Triglycerides 97 mg/dL (<150) 01/20/18 12:15 Cholesterol 195 mg/dL (<200) 01/20/18 12:15 LDL Cholesterol Direct 152 mg/dL (75-193) 01/20/18 12:15 HDL Cholesterol 40 mg/dL (23-92) 01/20/18 12:15 Lipase 108 U/L (11-82) H 01/20/18 12:15 Free T4 1.12 ng/dL (0.82-1.77) 01/20/18 12:50 TSH 0.06 uIU/ml (0.34-5.60) L 01/20/18 12:15 Urine Source [place] 01/28/18 17:10 Urine Color YELLOW 01/28/18 17:10 Urine Clarity CLOUDY (CLEAR) H 01/28/18 17:10 Urine pH 6.0 (4.6 - 8.0) 01/28/18 17:10 Ur Specific [place] 1.020 (1.005-1.030) 01/28/18 17:10 Urine Protein 100 mg/dL (NEGATIVE) H 01/28/18 17:10 Urine Glucose (UA) NEGATIVE mg/dL (NEGATIVE) 01/28/18 17:10 Urine Ketones NEGATIVE mg/dL (NEGATIVE) 01/28/18 17:10 Urine Blood MODERATE (NEGATIVE) H 01/28/18 17:10 Urine Nitrate NEGATIVE (NEGATIVE) 01/28/18 17:10 Urine Bilirubin NEGATIVE (NEGATIVE) 01/28/18 17:10 Urine Urobilinogen 0.2 E.U./dL (0.2 - 1.0) 01/28/18 17:10 Ur Leukocyte Esterase MODERATE (NEGATIVE) H 01/28/18 17:10 Urine RBC 5-10 /hpf (0-5) H 01/28/18 17:10 Urine WBC 10-25 /hpf (0-5) H 01/28/18 17:10 Ur Epithelial Cells OCCASIONAL /lpf (FEW) 01/28/18 17:10 Urine Bacteria OCCASIONAL /hpf (NONE SEEN) 01/28/18 17:10 Urine Yeast MANY /hpf (NONE SEEN) H 01/28/18 17:10 Ur Random Sodium 56 mmol/L 01/28/18 17:10 Urine Creatinine 39.0 mg/dl (28.0-217.0) 01/28/18 17:10 Vancomycin Trough 27.8 ug/mL (10-20) H 01/26/18 23:00 Random Vancomycin 23.0 ug/mL (5.0-40.0) 01/30/18 05:06 Blood Type O POSITIVE 01/30/18 07:35 Antibody Screen NEGATIVE 01/30/18 07:35 Crossmatch See Detail 01/30/18 07:35 - Physical Exam Vitals and I&O: Vital Signs Temp 96.9 F 01/30/18 16:00 Pulse 73 01/31/18 07:30 Resp 14 01/31/18 06:00 BP 155/53 01/31/18 06:00 Pulse Ox 100 01/31/18 07:30 Intake & Output 01/30/18 01/31/18 01/31/18 18:59 06:59 18:59 Intake Total 100 1580 Output Total 1251 Balance 100 329 Weight (lbs) 56.699 kg Intake: Intake, IV Amount 100 550 Albumin 25% 25gm/100mL 25 100 200 gm In 100 ml @ 50 mls/hr IV Q8H [facility] Rx#:[id number] Fluconazole 100mg/50mL 50 100 mg In 50 ml @ 50 mls/ hr IV Q24HR [facility] Rx#: [id number] Meropenem 1 gm In Sodium 100 Chloride 0.9% 100 ml @ 100 mls/hr IV Q12H [facility] Rx #:[id number] metroNIDAZOLE 500mg/NS 200 100mL 500 mg In 100 ml @ 100 mls/hr IV Q8HR [facility] Rx #:[id number] Tube Feeding 1030 Output: Urine 250 Stool 1 Hemodialysis 1000 Other: Stool Characteristics Soft Soft Liquid Liquid Active Medications: Current Medications Acetaminophen (Tylenol) 650 mg PO Q4H PRN PRN Reason: MILD PAIN OR TEMP >100.4 Stop: 03/21/18 16:07 Al Hydrox/Mg Hydrox/Simethicone (Maalox) 30 ml PO Q6HR PRN PRN Reason: GI DISTRESS Stop: 03/21/18 16:28 Albuterol/Ipratropium (Duoneb Neb) 3 ml HHN Q6HRT [facility] Stop: 03/30/18 00:59 Last Admin: 01/31/18 07:30 Dose: 3 ml Artificial Tears (Artificial Tears Ophth Soln) 1 drop EACH EYE Q2HR PRN PRN Reason: Dry Eye Stop: 03/27/18 09:28 Last Admin: 01/26/18 10:13 Dose: 1 drop Atorvastatin Calcium (Lipitor) 80 mg PO HS [facility] PRN Reason: Protocol Stop: 03/21/18 20:59 Last Admin: 01/30/18 21:09 Dose: 80 mg Bisacodyl (Dulcolax 10 Mg Supp) 10 mg RC DAILY PRN PRN Reason: Constipation Stop: 03/21/18 16:07 Carvedilol (Coreg) 12.5 mg PO BID [facility] Stop: 03/21/18 16:59 Last Admin: 01/30/18 17:01 Dose: Not Given Chlorhexidine Gluconate (Peridex) 15 ml MM 0800,2000 [facility] Stop: 03/27/18 07:59 Last Admin: 01/30/18 21:33 Dose: 15 ml Dextrose (D50w) 50 ml IVP PRN PRN PRN Reason: HYPOGLYCEMIA Stop: 03/21/18 16:07 Diltiazem HCl (Cardizem) 60 mg PO Q6HR [facility] Stop: 03/21/18 17:59 Last Admin: 01/31/18 06:19 Dose: 60 mg Enalaprilat (Vasotec) 2.5 mg IVP Q6HR PRN PRN Reason: SBP ABOVE 160 Stop: 03/25/18 11:59 Last Admin: 01/24/18 15:13 Dose: 2.5 mg Furosemide (Lasix) 40 mg IVP DAILY [facility] Stop: 02/01/18 09:01 Last Admin: 01/30/18 21:28 Dose: 40 mg Glucagon (Glucagen) 1 mg IVP PRN PRN PRN Reason: HYPOGLYCEMIA Stop: 03/21/18 16:25 Heparin Sodium (Porcine) (Heparin) 5,000 units HD UD [facility] Stop: 01/31/18 17:08 Last Admin: 01/30/18 18:00 Dose: Not Given Meropenem 1 gm/ Sodium (Chloride) 100 mls @ 100 mls/hr IV Q12H [facility] Stop: 03/26/18 08:59 Last Infusion: 01/31/18 06:20 Dose: Infused Phenylephrine HCl 10 mg/ (Sodium Chloride) 250 mls @ 75 mls/hr IV TITR [facility]; 50 MCG/MIN PRN Reason: Protocol Stop: 03/25/18 20:14 Norepinephrine Bitartrate 4 mg (/ Sodium Chloride) 254 mls @ 15.24 mls/hr IV TITR [facility]; 4 MCG/MIN PRN Reason: Protocol Stop: 03/26/18 08:14 Last Titration: 01/27/18 00:22 Dose: 0 mcg/min, 0 mls/hr Fluconazole (Diflucan) 100 mg in 50 mls @ 50 mls/hr IV Q24HR [facility] Stop: 03/30/18 15:59 Last Infusion: 01/31/18 06:21 Dose: Infused Albumin Human (Albuminar 25%) 25 gm in 100 mls @ 50 mls/hr IV Q8H [facility] Stop: 02/02/18 01:59 Last Infusion: 01/31/18 06:21 Dose: Infused Vancomycin HCl 1 gm/ Sodium (Chloride) 250 mls @ 165 mls/hr IV ONCE ONE Stop: 01/31/18 10:30 Metronidazole (Flagyl) 500 mg in 100 mls @ 100 mls/hr IV Q8HR [facility] Stop: 03/31/18 20:59 Last Infusion: 01/31/18 06:20 Dose: Infused Insulin Aspart (Novolog Insulin Sliding Scale) 0 units SUBQ Q6HR [facility] PRN Reason: Protocol Stop: 03/27/18 00:00 Last Admin: 01/31/18 06:31 Dose: Not Given Magnesium Hydroxide (Milk Of Magnesia) 30 ml PO DAILY PRN PRN Reason: IF NO BM IN TWO DAYS Stop: 03/21/18 16:07 Megestrol Acetate (Megace) 400 mg PO BID [facility] Stop: 03/21/18 16:59 Last Admin: 01/30/18 17:00 Dose: Not Given Metoprolol Tartrate (Lopressor) 5 mg IV Q4H PRN PRN Reason: Tachycardia Stop: 03/25/18 12:29 Miscellaneous (Vancomycin Iv Per Pharmacy) 1 ea MC PRN [facility] Stop: 03/25/18 17:59 Multivitamins/Vitamin C (Theragran) 1 tab PO DAILY [facility] Stop: 03/22/18 08:59 Last Admin: 01/30/18 09:04 Dose: 1 tab Ondansetron HCl (Zofran Odt) 4 mg PO Q6H PRN PRN Reason: Nausea / Vomiting Stop: 03/21/18 16:07 Pantoprazole Sodium (Protonix) 40 mg NG DAILY [facility] Stop: 03/28/18 16:59 Last Admin: 01/30/18 09:03 Dose: 40 mg Prednisone (Deltasone) 10 mg PO DAILY [facility] Stop: 03/22/18 08:59 Last Admin: 01/30/18 09:04 Dose: 10 mg Sodium Bicarbonate (Sodium Bicarbonate) 650 mg PO BID [facility] PRN Reason: Protocol Stop: 03/29/18 16:59 Last Admin: 01/30/18 17:00 Dose: Not Given Sodium Phosphate (Fleet Enema) 135 ml RC DAILY PRN PRN Reason: Constipation Stop: 03/21/18 16:07 Vitamin A (Vitamin A & D) 5 gm TP DAILY [facility] Stop: 03/22/18 08:59 Last Admin: 01/30/18 09:00 Dose: 5 gm General: Moderate distress, Other (obtunded) HEENT: Atraumatic Neck: Supple, +2 carotid pulse wo bruit Cardiovascular: Regular rate, Normal S1, Normal S2 Lungs: Other (decreased BS, coarse rhonchi) Abdomen: Bowel sounds, Soft Extremities: Edema Neurological: Sensation intact Skin: no Rash Psych/Mental Status: Other (obtunded) - Procedures Procedures: Procedures Procedure Code Date INSERT EMERGENCY AIRWAY 16215 01/20/18 INSERTION OF ENDOTRACHEAL AIRWAY INTO [place], VIA OPENING [id number] 01/20/18 RESPIRATORY VENTILATION, GREATER THAN 96 CONSECUTIVE HOURS [id number] 01/20/18 VENT MGMT INPAT INIT DAY 97676 01/20/18 Assessment/Plan - Problem List Patient Problems: All Active Problems ELEVATED WBC, LUNG INFILTRATES (Acute) Nutritional Asmnt/Malnutr-PDOC - Dietary Evaluation Malnutrition Findings (Please click <Entered> for more info): Nutritional Asmnt/Malnutrition Start: 01/21/18 16: 32 Text: Status: Complete Freq: Document 01/21/18 16:32 [place] (Rec: 01/21/18 16:48 AMITA [id number]) Nutritional Asmnt/Malnutrition Patient General Information Nutritional Screening High Risk Consult Diagnosis left lung infiltrate Pertinent Medical Hx/Surgical Hx dementia, HTN, hyperlipidemia per ER notes, no H&P at this time Subjective Information Pt seen sleeping at time of visit, not able to wake up for lunch. Per [employer], pt only had cereal and scrambled eggs this morning, not able to chew the [place] toast d/t weakness. Current Diet Order/ Nutrition Support low cholesterol 300gm Pertinent Medications D5-0.45ns, novolog, megace, theragran, piperacillin, vit A &D Pertinent Labs 01/21 BUN 32, Glucose 180, POC 142-261 01/20 A1c 5.1, POC 127-165 Nutritional Hx/Data Height 1.6 m Height (Calculated Centimeters) 160.0 Current Weight (lbs) 37.648 kg Weight (Calculated Kilograms) 37.6 Weight (Calculated Grams) 59136.2 [place] Body Weight 115 Body Mass Index (BMI) 14.7 Weight Status Underweight GI Symptoms GI Symptoms None Last BM none Difficult in: None Skin Integrity/Comment: reddened to vagina and coccyx Current %PO Poor (25-49%) Estimated Nutritional Goals Calories/Kcals/Kg 25-30 Kcals Calculated 2536-7821 Protein g/k Protein Calculated 52 Fluid: ml 1300-1560ml (1ml/kcal) Nutritional Problem 2. Problem Problem chewing difficulty Etiology weakness, sleepy Signs/Symptoms: pt need for mech soft diet 1. Problem Problem altered nutrition related lab values Etiology hyperglycemia Signs/Symptoms: Glucose 180, POC 127-261 Intervention/Recommendation Comments 1. Recommend Mech soft ground diet with Boost BID to increase nutrition intake. 2. Monitor PO intake, wt, labs and skin integrity 3. F/U as high risk in 2-3 days, 01/23-01/24 Expected Outcomes/Goals Expected Outcomes/Goals 1. PO intake to meet at least 75% of nutritional needs. 2. Wt stability, skin to remain intact, labs to approach WNL.
[2018-01-31] MEDS: Pantoprazole 40 mg/Packet NG SCH (09:44)
[2018-01-31] MEDS: Multivitamin Tab PO SCH (09:44)
[2018-01-31] MEDS: Chlorhexidine Gluconate 0.12% 15mL Mouthwash MM SCH ×2 (09:47→21:10)
--- NOTE | 2018-01-31 13:35 | General Progress Note ---
Subjective - Review of Systems Service Date: 01/31/18 Subjective: more responsive, opens eyes, on vent Objective - Results Result Diagrams: 01/31/18 04:10 01/31/18 04:10 Recent Labs: Laboratory Last Values WBC 20.5 Th/cmm (4.8-10.8) H* 01/31/18 04:10 RBC 4.52 Mil/cmm (3.80-5.20) 01/31/18 04:10 Hgb 14.2 gm/dL (12-16) D 01/31/18 04:10 Hct 40.6 % (41.0-60) L D 01/31/18 04:10 MCV 89.9 fl (81-100) 01/31/18 04:10 MCH 31.3 pg (27.0-31.0) H 01/31/18 04:10 MCHC Differential 34.8 pg (28.0-36.0) 01/31/18 04:10 RDW 14.7 % (11.5-20.0) 01/31/18 04:10 Plt Count 111 Th/cmm (150-400) L 01/31/18 04:10 MPV 9.7 fl 01/31/18 04:10 Neutrophils % RN POOL 01/31/18 04:10 Band Neutrophils % 5 % (0-10) 01/31/18 04:10 Lymphocytes % RN POOL 01/31/18 04:10 Monocytes % RN POOL 01/31/18 04:10 Eosinophils % 0.5 % (0.0-5.0) 01/23/18 06:00 Basophils % 0.0 % (0.0-2.0) 01/23/18 06:00 Neutrophils (Manual) 83 % (40-80) H 01/31/18 04:10 Lymphocytes 8 % (20-50) L 01/31/18 04:10 Monocytes 4 % (2-10) 01/31/18 04:10 Eosinophils 0 % (0-5) 01/27/18 04:58 Basophils 0 % (0-3) 01/27/18 04:58 Platelet Estimate SLIGHT DECREASED (NORMAL) 01/31/18 04:10 Platelet Morphology NORMAL (NORMAL) 01/27/18 04:58 RBC Morph Micro Appear NORMAL (NORMAL) 01/27/18 04:58 Eos Smear Source URINE 01/28/18 17:10 Eos Smear Total Cells NONE SEEN (NONE SEEN) 01/28/18 17:10 PT 9.3 SECONDS (9.5-11.5) L 01/29/18 21:26 INR 0.90 (0.5-1.4) 01/29/18 21:26 PTT (Actin FS) 46.6 SECONDS (26.0-38.0) H 01/29/18 21:26 Specimen Source Arterial 01/24/18 17:45 Sample Site Left Radial 01/24/18 17:45 pH 7.41 (7.35-7.45) 01/24/18 17:45 pCO2 32.0 mmHg (35.0-45.0) L 01/24/18 17:45 pO2 397.0 mmHg (80.0-100.0) H 01/24/18 17:45 HCO3 22.3 mEq/L (20.0-26.0) 01/24/18 17:45 Base Excess -3.5 mEq/L (-3.0-3.0) L 01/24/18 17:45 O2 Saturation 100.0 % (92.0-100.0) 01/24/18 17:45 Bebo Test YES 01/24/18 17:45 Vent Rate 14 01/24/18 17:45 Inspired O2 100 01/24/18 17:45 Tidal Volume 450 01/24/18 17:45 PEEP 5 01/24/18 17:45 Pressure (ins/psv/peep) NA 01/24/18 17:45 Critical Value E.BRIDGES 01/24/18 17:45 Sodium 138 mEq/L (136-145) 01/31/18 04:10 Potassium 3.9 mEq/L (3.5-5.1) 01/31/18 04:10 Chloride 106 mEq/L (98-107) 01/31/18 04:10 Carbon Dioxide 23.2 mEq/L (21.0-31.0) 01/31/18 04:10 Anion Gap 12.7 (7.0-16.0) 01/31/18 04:10 BUN 37 mg/dL (7-25) H 01/31/18 04:10 Creatinine 1.6 mg/dL (0.6-1.2) H 01/31/18 04:10 Est GFR ( Amer) TNP 03/22/18 04:10 Est GFR (Non-Af Amer) TNP 01/31/18 04:10 BUN/Creatinine Ratio 23.1 01/31/18 04:10 Glucose 100 mg/dL (70-105) 01/31/18 04:10 POC Glucose 118 MG/DL (70 - 105) H 01/31/18 11:24 Hemoglobin A1c % 5.1 % (4.0-6.0) 01/20/18 12:15 Plasma/Ser Osmolality 287 mOsmol/kg (280-301) 01/28/18 17:45 Whole Bld Lactic Acid 1.50 mmol/L (0.60-1.99) 01/28/18 13:40 Uric Acid 5.3 mg/dL (2.3-6.6) 01/30/18 05:06 Calcium 7.8 mg/dL (8.6-10.3) L 01/31/18 04:10 Phosphorus 3.3 mg/dL (2.5-5.0) 01/30/18 05:06 Magnesium 2.3 mg/dL (1.9-2.7) 01/30/18 05:06 Iron 54 ug/dL (27-139) 01/20/18 12:50 TIBC 159 ug/dL (250-450) L 01/20/18 12:50 Iron Saturation 34 % (15-55) 01/20/18 12:50 Unsaturated IBC 105 ug/dL (118-369) L 01/20/18 12:50 Ferritin 1230 ng/mL (15-150) H 01/20/18 12:50 Total Bilirubin 0.3 mg/dL (0.3-1.0) 01/29/18 05:10 Direct Bilirubin 0.07 mg/dL (0.0-0.2) 01/20/18 12:30 AST 54 U/L (13-39) H 01/29/18 05:10 ALT 93 U/L (7-52) H 01/29/18 05:10 Alkaline Phosphatase 105 U/L (34-104) H 01/29/18 05:10 Troponin I 0.03 ng/mL (0.01-0.05) 01/20/18 12:15 C-Reactive Protein 4.3 mg/dL (0.0-0.9) H 01/20/18 12:50 B-Natriuretic Peptide 185.0 pg/mL (5.0-100.0) H 01/25/18 04:20 Total Protein 3.7 gm/dL (6.0-8.3) L 01/29/18 05:10 Albumin 1.6 gm/dL (3.7-5.3) L 01/29/18 05:10 Globulin 2.1 gm/dL 01/29/18 05:10 Albumin/Globulin Ratio 0.8 (1.0-1.8) L 01/29/18 05:10 Triglycerides 97 mg/dL (<150) 01/20/18 12:15 Cholesterol 195 mg/dL (<200) 01/20/18 12:15 LDL Cholesterol Direct 152 mg/dL (75-193) 01/20/18 12:15 HDL Cholesterol 40 mg/dL (23-92) 01/20/18 12:15 Lipase 108 U/L (11-82) H 01/20/18 12:15 Free T4 1.12 ng/dL (0.82-1.77) 01/20/18 12:50 TSH 0.06 uIU/ml (0.34-5.60) L 01/20/18 12:15 Urine Source [place] 01/28/18 17:10 Urine Color YELLOW 01/28/18 17:10 Urine Clarity CLOUDY (CLEAR) H 01/28/18 17:10 Urine pH 6.0 (4.6 - 8.0) 01/28/18 17:10 Ur Specific [place] 1.020 (1.005-1.030) 01/28/18 17:10 Urine Protein 100 mg/dL (NEGATIVE) H 01/28/18 17:10 Urine Glucose (UA) NEGATIVE mg/dL (NEGATIVE) 01/28/18 17:10 Urine Ketones NEGATIVE mg/dL (NEGATIVE) 01/28/18 17:10 Urine Blood MODERATE (NEGATIVE) H 01/28/18 17:10 Urine Nitrate NEGATIVE (NEGATIVE) 01/28/18 17:10 Urine Bilirubin NEGATIVE (NEGATIVE) 01/28/18 17:10 Urine Urobilinogen 0.2 E.U./dL (0.2 - 1.0) 01/28/18 17:10 Ur Leukocyte Esterase MODERATE (NEGATIVE) H 01/28/18 17:10 Urine RBC 5-10 /hpf (0-5) H 01/28/18 17:10 Urine WBC 10-25 /hpf (0-5) H 01/28/18 17:10 Ur Epithelial Cells OCCASIONAL /lpf (FEW) 01/28/18 17:10 Urine Bacteria OCCASIONAL /hpf (NONE SEEN) 01/28/18 17:10 Urine Yeast MANY /hpf (NONE SEEN) H 01/28/18 17:10 Ur Random Sodium 56 mmol/L 01/28/18 17:10 Urine Creatinine 39.0 mg/dl (28.0-217.0) 01/28/18 17:10 Vancomycin Trough 27.8 ug/mL (10-20) H 01/26/18 23:00 Random Vancomycin 23.0 ug/mL (5.0-40.0) 01/30/18 05:06 Blood Type O POSITIVE 01/30/18 07:35 Antibody Screen NEGATIVE 01/30/18 07:35 Crossmatch See Detail 01/30/18 07:35 - Physical Exam Vitals and I&O: Vital Signs Temp 96.9 F 01/30/18 16:00 Pulse 58 01/31/18 12:39 Resp 14 01/31/18 06:00 BP 159/77 01/31/18 09:47 Pulse Ox 100 01/31/18 09:20 Intake & Output 01/30/18 01/31/18 01/31/18 18:59 06:59 18:59 Intake Total 100 1580 Output Total 1251 Balance 100 329 Weight (lbs) 56.699 kg Intake: Intake, IV Amount 100 550 Albumin 25% 25gm/100mL 25 100 200 gm In 100 ml @ 50 mls/hr IV Q8H [facility] Rx#:[id number] Fluconazole 100mg/50mL 50 100 mg In 50 ml @ 50 mls/ hr IV Q24HR [facility] Rx#: [id number] Meropenem 1 gm In Sodium 100 Chloride 0.9% 100 ml @ 100 mls/hr IV Q12H [facility] Rx #:[id number] metroNIDAZOLE 500mg/NS 200 100mL 500 mg In 100 ml @ 100 mls/hr IV Q8HR [facility] Rx #:[id number] Tube Feeding 1030 Output: Urine 250 Stool 1 Hemodialysis 1000 Other: Stool Characteristics Soft Soft Liquid Liquid Active Medications: Current Medications Acetaminophen (Tylenol) 650 mg PO Q4H PRN PRN Reason: MILD PAIN OR TEMP >100.4 Stop: 03/21/18 16:07 Al Hydrox/Mg Hydrox/Simethicone (Maalox) 30 ml PO Q6HR PRN PRN Reason: GI DISTRESS Stop: 03/21/18 16:28 Albuterol/Ipratropium (Duoneb Neb) 3 ml HHN Q6HRT [facility] Stop: 03/30/18 00:59 Last Admin: 01/31/18 07:30 Dose: 3 ml Artificial Tears (Artificial Tears Ophth Soln) 1 drop EACH EYE Q2HR PRN PRN Reason: Dry Eye Stop: 03/27/18 09:28 Last Admin: 01/26/18 10:13 Dose: 1 drop Atorvastatin Calcium (Lipitor) 80 mg PO HS [facility] PRN Reason: Protocol Stop: 03/21/18 20:59 Last Admin: 01/30/18 21:09 Dose: 80 mg Bisacodyl (Dulcolax 10 Mg Supp) 10 mg RC DAILY PRN PRN Reason: Constipation Stop: 03/21/18 16:07 Carvedilol (Coreg) 12.5 mg PO BID [facility] Stop: 03/21/18 16:59 Last Admin: 01/31/18 09:47 Dose: 12.5 mg Chlorhexidine Gluconate (Peridex) 15 ml MM 0800,2000 [facility] Stop: 03/27/18 07:59 Last Admin: 01/31/18 09:47 Dose: 15 ml Dextrose (D50w) 50 ml IVP PRN PRN PRN Reason: HYPOGLYCEMIA Stop: 03/21/18 16:07 Diltiazem HCl (Cardizem) 60 mg PO Q6HR [facility] Stop: 03/21/18 17:59 Last Admin: 01/31/18 12:39 Dose: Not Given Enalaprilat (Vasotec) 2.5 mg IVP Q6HR PRN PRN Reason: SBP ABOVE 160 Stop: 03/25/18 11:59 Last Admin: 01/24/18 15:13 Dose: 2.5 mg Furosemide (Lasix) 40 mg IVP DAILY [facility] Stop: 02/01/18 09:01 Last Admin: 01/31/18 09:45 Dose: 40 mg Glucagon (Glucagen) 1 mg IVP PRN PRN PRN Reason: HYPOGLYCEMIA Stop: 03/21/18 16:25 Heparin Sodium (Porcine) (Heparin) 5,000 units HD UD [facility] Stop: 01/31/18 17:08 Last Admin: 01/31/18 09:45 Dose: 5,000 units Meropenem 1 gm/ Sodium (Chloride) 100 mls @ 100 mls/hr IV Q12H [facility] Stop: 03/26/18 08:59 Last Infusion: 01/31/18 06:20 Dose: Infused Phenylephrine HCl 10 mg/ (Sodium Chloride) 250 mls @ 75 mls/hr IV TITR [facility]; 50 MCG/MIN PRN Reason: Protocol Stop: 03/25/18 20:14 Norepinephrine Bitartrate 4 mg (/ Sodium Chloride) 254 mls @ 15.24 mls/hr IV TITR [facility]; 4 MCG/MIN PRN Reason: Protocol Stop: 03/26/18 08:14 Last Titration: 01/27/18 00:22 Dose: 0 mcg/min, 0 mls/hr Fluconazole (Diflucan) 100 mg in 50 mls @ 50 mls/hr IV Q24HR [facility] Stop: 03/30/18 15:59 Last Infusion: 01/31/18 06:21 Dose: Infused Albumin Human (Albuminar 25%) 25 gm in 100 mls @ 50 mls/hr IV Q8H [facility] Stop: 02/02/18 01:59 Last Admin: 01/31/18 09:00 Dose: 50 mls/hr Metronidazole (Flagyl) 500 mg in 100 mls @ 100 mls/hr IV Q8HR [facility] Stop: 03/31/18 20:59 Last Infusion: 01/31/18 06:20 Dose: Infused Insulin Aspart (Novolog Insulin Sliding Scale) 0 units SUBQ Q6HR [facility] PRN Reason: Protocol Stop: 03/27/18 00:00 Last Admin: 01/31/18 12:38 Dose: Not Given Magnesium Hydroxide (Milk Of Magnesia) 30 ml PO DAILY PRN PRN Reason: IF NO BM IN TWO DAYS Stop: 03/21/18 16:07 Megestrol Acetate (Megace) 400 mg PO BID [facility] Stop: 03/21/18 16:59 Last Admin: 01/31/18 09:44 Dose: 400 mg Metoprolol Tartrate (Lopressor) 5 mg IV Q4H PRN PRN Reason: Tachycardia Stop: 03/25/18 12:29 Miscellaneous (Vancomycin Iv Per Pharmacy) 1 ea MC PRN [facility] Stop: 03/25/18 17:59 Multivitamins/Vitamin C (Theragran) 1 tab PO DAILY [facility] Stop: 03/22/18 08:59 Last Admin: 01/31/18 09:44 Dose: 1 tab Ondansetron HCl (Zofran Odt) 4 mg PO Q6H PRN PRN Reason: Nausea / Vomiting Stop: 03/21/18 16:07 Pantoprazole Sodium (Protonix) 40 mg NG DAILY [facility] Stop: 03/28/18 16:59 Last Admin: 01/31/18 09:44 Dose: 40 mg Prednisone (Deltasone) 10 mg PO DAILY [facility] Stop: 03/22/18 08:59 Last Admin: 01/31/18 09:44 Dose: 10 mg Sodium Bicarbonate (Sodium Bicarbonate) 650 mg PO BID [facility] PRN Reason: Protocol Stop: 03/29/18 16:59 Last Admin: 01/31/18 09:44 Dose: 650 mg Sodium Phosphate (Fleet Enema) 135 ml RC DAILY PRN PRN Reason: Constipation Stop: 03/21/18 16:07 Vitamin A (Vitamin A & D) 5 gm TP DAILY [facility] Stop: 03/22/18 08:59 Last Admin: 01/30/18 09:00 Dose: 5 gm General: Moderate distress, Other (more awake) HEENT: Atraumatic Neck: Supple, +2 carotid pulse wo bruit Cardiovascular: Regular rate, Normal S1, Normal S2 Lungs: Other (decreased BS, coarse rhonchi) Abdomen: Bowel sounds, Soft Extremities: Edema, Other (less edema) Neurological: Sensation intact Skin: no Rash Psych/Mental Status: Other (obtunded) - Procedures Procedures: Procedures Procedure Code Date INSERT EMERGENCY AIRWAY 72831 01/20/18 INSERTION OF ENDOTRACHEAL AIRWAY INTO [place], VIA OPENING [id number] 01/20/18 RESPIRATORY VENTILATION, GREATER THAN 96 CONSECUTIVE HOURS [id number] 01/20/18 VENT MGMT INPAT INIT DAY 53240 01/20/18 Assessment/Plan - Problem List Patient Problems: All Active Problems ELEVATED WBC, LUNG INFILTRATES (Acute) - Assessment Assessment: LAURENCE Anuric Cortical injury Sepsis B/L Chronic Lung Infiltrates Acute Resp Failure 2/2 Copd P. A. Fib Anemia of CD non Gap met acid yeast UTI - Plan Plan: Lab - Result Diagrams 01/29/18 05:10 01/29/18 05:10 Current Medications Acetaminophen (Tylenol) 650 mg PO Q4H PRN PRN Reason: MILD PAIN OR TEMP >100.4 Stop: 03/21/18 16:07 Al Hydrox/Mg Hydrox/Simethicone (Maalox) 30 ml PO Q6HR PRN PRN Reason: GI DISTRESS Stop: 03/21/18 16:28 Albuterol/Ipratropium (Duoneb Neb) 3 ml HHN Q6HRT [facility] Stop: 03/30/18 00:59 Last Admin: 01/29/18 13:21 Dose: 3 ml Artificial Tears (Artificial Tears Ophth Soln) 1 drop EACH EYE Q2HR PRN PRN Reason: Dry Eye Stop: 03/27/18 09:28 Last Admin: 01/26/18 10:13 Dose: 1 drop Atorvastatin Calcium (Lipitor) 80 mg PO HS [facility] PRN Reason: Protocol Stop: 03/21/18 20:59 Last Admin: 01/28/18 20:32 Dose: 80 mg Bisacodyl (Dulcolax 10 Mg Supp) 10 mg RC DAILY PRN PRN Reason: Constipation Stop: 03/21/18 16:07 Carvedilol (Coreg) 12.5 mg PO BID [facility] Stop: 03/21/18 16:59 Last Admin: 01/29/18 08:10 Dose: 12.5 mg Chlorhexidine Gluconate (Peridex) 15 ml MM 0800,2000 [facility] Stop: 03/27/18 07:59 Last Admin: 01/29/18 08:00 Dose: 15 ml Dextrose (D50w) 50 ml IVP PRN PRN PRN Reason: HYPOGLYCEMIA Stop: 03/21/18 16:07 Diltiazem HCl (Cardizem) 60 mg PO Q6HR [facility] Stop: 03/21/18 17:59 Last Admin: 01/29/18 12:10 Dose: 60 mg Enalaprilat (Vasotec) 2.5 mg IVP Q6HR PRN PRN Reason: SBP ABOVE 160 Stop: 03/25/18 11:59 Last Admin: 01/24/18 15:13 Dose: 2.5 mg Glucagon (Glucagen) 1 mg IVP PRN PRN PRN Reason: HYPOGLYCEMIA Stop: 03/21/18 16:25 Meropenem 1 gm/ Sodium (Chloride) 100 mls @ 100 mls/hr IV Q12H [facility] Stop: 03/26/18 08:59 Last Infusion: 01/29/18 10:30 Dose: Infused Phenylephrine HCl 10 mg/ (Sodium Chloride) 250 mls @ 75 mls/hr IV TITR [facility]; 50 MCG/MIN PRN Reason: Protocol Stop: 03/25/18 20:14 Norepinephrine Bitartrate 4 mg (/ Sodium Chloride) 254 mls @ 15.24 mls/hr IV TITR [facility]; 4 MCG/MIN PRN Reason: Protocol Stop: 03/26/18 08:14 Last Titration: 01/27/18 00:22 Dose: 0 mcg/min, 0 mls/hr Potassium Chloride/Dextrose/Sod Cl (D5-0.9ns W/Kcl 20meq) 1,000 mls @ 75 mls/ hr IV .[id number] [facility] Stop: 03/28/18 14:06 Last Admin: 01/29/18 12:54 Dose: 125 mls/hr Insulin Aspart (Novolog Insulin Sliding Scale) 0 units SUBQ Q6HR [facility] PRN Reason: Protocol Stop: 03/27/18 00:00 Last Admin: 01/29/18 12:09 Dose: 2 units Magnesium Hydroxide (Milk Of Magnesia) 30 ml PO DAILY PRN PRN Reason: IF NO BM IN TWO DAYS Stop: 03/21/18 16:07 Megestrol Acetate (Megace) 400 mg PO BID [facility] Stop: 03/21/18 16:59 Last Admin: 01/29/18 08:10 Dose: 400 mg Metoprolol Tartrate (Lopressor) 5 mg IV Q4H PRN PRN Reason: Tachycardia Stop: 03/25/18 12:29 Miscellaneous (Vancomycin Iv Per Pharmacy) 1 ea [facility] PRN [facility] Stop: 03/25/18 17:59 Multivitamins/Vitamin C (Theragran) 1 tab PO DAILY [facility] Stop: 03/22/18 08:59 Last Admin: 01/29/18 08:10 Dose: 1 tab Ondansetron HCl (Zofran Odt) 4 mg PO Q6H PRN PRN Reason: Nausea / Vomiting Stop: 03/21/18 16:07 Pantoprazole Sodium (Protonix) 40 mg NG DAILY [facility] Stop: 03/28/18 16:59 Last Admin: 01/29/18 08:10 Dose: 40 mg Prednisone (Deltasone) 10 mg PO DAILY [facility] Stop: 03/22/18 08:59 Last Admin: 01/29/18 08:10 Dose: 10 mg Sodium Bicarbonate (Sodium Bicarbonate) 650 mg PO BID [facility] PRN Reason: Protocol Stop: 03/29/18 16:59 Last Admin: 01/29/18 08:10 Dose: 650 mg Sodium Phosphate (Fleet Enema) 135 ml RC DAILY PRN PRN Reason: Constipation Stop: 03/21/18 16:07 Vitamin A (Vitamin A & D) 5 gm TP DAILY [facility] Stop: 03/22/18 08:59 Last Admin: 01/29/18 12:14 Dose: 5 gm Lab - Result Diagrams 01/31/18 04:10 01/31/18 04:10 kidney fnc slight improvement less peripheral edema decrease IVF & DC K replace Ca, P04, Mg start Diflucan on top of Meropenem dialyzed yesterday & tolerated it well, for HD in am WBC down to 20 administer [id number] initiated on HD due to anuria, fluid retention, acidosis, hyperkalemia Hgb/Hct improved to 14.2/40.6 CXR still w/ b/l small effusion UOP has picked up discussed w/ daughter @ bedside Nutritional Asmnt/Malnutr-PDOC - Dietary Evaluation Malnutrition Findings (Please click <Entered> for more info): Nutritional Asmnt/Malnutrition Start: 01/21/18 16: 32 Text: Status: Complete Freq: Document 01/21/18 16:32 LCHENG (Rec: 01/21/18 16:48 LCHENG [email or web address]) Nutritional Asmnt/Malnutrition Patient General Information Nutritional Screening High Risk Consult Diagnosis left lung infiltrate Pertinent Medical Hx/Surgical Hx dementia, HTN, hyperlipidemia per ER notes, no H&P at this time Subjective Information Pt seen sleeping at time of visit, not able to wake up for lunch. Per [employer], pt only had cereal and scrambled eggs this morning, not able to chew the [place] toast d/t weakness. Current Diet Order/ Nutrition Support low cholesterol 300gm Pertinent Medications D5-0.45ns, novolog, megace, theragran, piperacillin, vit A &D Pertinent Labs 01/21 BUN 32, Glucose 180, POC 142-261 01/20 A1c 5.1, POC 127-165 Nutritional Hx/Data Height 1.6 m Height (Calculated Centimeters) 160.0 Current Weight (lbs) 37.648 kg Weight (Calculated Kilograms) 37.6 Weight (Calculated Grams) 78815.2 [place] Body Weight 115 Body Mass Index (BMI) 14.7 Weight Status Underweight GI Symptoms GI Symptoms None Last BM none Difficult in: None Skin Integrity/Comment: reddened to vagina and coccyx Current %PO Poor (25-49%) Estimated Nutritional Goals Calories/Kcals/Kg 25-30 Kcals Calculated [id number] Protein g/k Protein Calculated 52 Fluid: ml 1300-1560ml (1ml/kcal) Nutritional Problem 2. Problem Problem chewing difficulty Etiology weakness, sleepy Signs/Symptoms: pt need for mech soft diet 1. Problem Problem altered nutrition related lab values Etiology hyperglycemia Signs/Symptoms: Glucose 180, POC 127-261 Intervention/Recommendation Comments 1. Recommend Mech soft ground diet with Boost BID to increase nutrition intake. 2. Monitor PO intake, wt, labs and skin integrity 3. F/U as high risk in 2-3 days, 01/23-01/24 Expected Outcomes/Goals Expected Outcomes/Goals 1. PO intake to meet at least 75% of nutritional needs. 2. Wt stability, skin to remain intact, labs to approach WNL.
[2018-01-31] MEDS: Meropenem 1 GM in Sodium Chloride 0.9% 100 ML IV SCH ×2 (14:00→21:09)
[2018-01-31] MEDS: Vitamin A/Vitamin D 5 gm Packet TP SCH (14:44)
--- NOTE | 2018-01-31 15:54 | Infectious Disease Prog Note ---
Infectious Disease Subjective - Review of Systems Service Date: 01/31/18 Subjective: No fever, remains intubated orally. on the ventilator support. Infectious Disease Objective - Results Result Diagrams: 01/31/18 04:10 01/31/18 04:10 Recent Labs: Laboratory Last Values WBC 20.5 Th/cmm (4.8-10.8) H* 01/31/18 04:10 RBC 4.52 Mil/cmm (3.80-5.20) 01/31/18 04:10 Hgb 14.2 gm/dL (12-16) D 01/31/18 04:10 Hct 40.6 % (41.0-60) L D 01/31/18 04:10 MCV 89.9 fl (81-100) 01/31/18 04:10 MCH 31.3 pg (27.0-31.0) H 01/31/18 04:10 MCHC Differential 34.8 pg (28.0-36.0) 01/31/18 04:10 RDW 14.7 % (11.5-20.0) 01/31/18 04:10 Plt Count 111 Th/cmm (150-400) L 01/31/18 04:10 MPV 9.7 fl 01/31/18 04:10 Neutrophils % [employer] 01/31/18 04:10 Band Neutrophils % 5 % (0-10) 01/31/18 04:10 Lymphocytes % [employer] 01/31/18 04:10 Monocytes % [employer] 01/31/18 04:10 Eosinophils % 0.5 % (0.0-5.0) 01/23/18 06:00 Basophils % 0.0 % (0.0-2.0) 01/23/18 06:00 Neutrophils (Manual) 83 % (40-80) H 01/31/18 04:10 Lymphocytes 8 % (20-50) L 01/31/18 04:10 Monocytes 4 % (2-10) 01/31/18 04:10 Eosinophils 0 % (0-5) 01/27/18 04:58 Basophils 0 % (0-3) 01/27/18 04:58 Platelet Estimate SLIGHT DECREASED (NORMAL) 01/31/18 04:10 Platelet Morphology NORMAL (NORMAL) 01/27/18 04:58 RBC Morph Micro Appear NORMAL (NORMAL) 01/27/18 04:58 Eos Smear Source URINE 01/28/18 17:10 Eos Smear Total Cells NONE SEEN (NONE SEEN) 01/28/18 17:10 PT 9.3 SECONDS (9.5-11.5) L 01/29/18 21:26 INR 0.90 (0.5-1.4) 01/29/18 21:26 PTT (Actin FS) 46.6 SECONDS (26.0-38.0) H 01/29/18 21:26 Specimen Source Arterial 01/24/18 17:45 Sample Site Left Radial 01/24/18 17:45 pH 7.41 (7.35-7.45) 01/24/18 17:45 pCO2 32.0 mmHg (35.0-45.0) L 01/24/18 17:45 pO2 397.0 mmHg (80.0-100.0) H 01/24/18 17:45 HCO3 22.3 mEq/L (20.0-26.0) 01/24/18 17:45 Base Excess -3.5 mEq/L (-3.0-3.0) L 01/24/18 17:45 O2 Saturation 100.0 % (92.0-100.0) 01/24/18 17:45 Bebo Test YES 01/24/18 17:45 Vent Rate 14 01/24/18 17:45 Inspired O2 100 01/24/18 17:45 Tidal Volume 450 01/24/18 17:45 PEEP 5 01/24/18 17:45 Pressure (ins/psv/peep) NA 01/24/18 17:45 Critical Value E.BRIDGES 01/24/18 17:45 Sodium 138 mEq/L (136-145) 01/31/18 04:10 Potassium 3.9 mEq/L (3.5-5.1) 01/31/18 04:10 Chloride 106 mEq/L (98-107) 01/31/18 04:10 Carbon Dioxide 23.2 mEq/L (21.0-31.0) 01/31/18 04:10 Anion Gap 12.7 (7.0-16.0) 01/31/18 04:10 BUN 37 mg/dL (7-25) H 01/31/18 04:10 Creatinine 1.6 mg/dL (0.6-1.2) H 01/31/18 04:10 Est GFR ( Amer) TNP 01/31/18 04:10 Est GFR (Non-Af Amer) TNP 01/31/18 04:10 BUN/Creatinine Ratio 23.1 01/31/18 04:10 Glucose 100 mg/dL (70-105) 01/31/18 04:10 POC Glucose 118 MG/DL (70 - 105) H 01/31/18 11:24 Hemoglobin A1c % 5.1 % (4.0-6.0) 01/20/18 12:15 Plasma/Ser Osmolality 287 mOsmol/kg (280-301) 01/28/18 17:45 Whole Bld Lactic Acid 1.50 mmol/L (0.60-1.99) 01/28/18 13:40 Uric Acid 5.3 mg/dL (2.3-6.6) 01/30/18 05:06 Calcium 7.8 mg/dL (8.6-10.3) L 01/31/18 04:10 Phosphorus 3.3 mg/dL (2.5-5.0) 01/30/18 05:06 Magnesium 2.3 mg/dL (1.9-2.7) 01/30/18 05:06 Iron 54 ug/dL (27-139) 01/20/18 12:50 TIBC 159 ug/dL (250-450) L 01/20/18 12:50 Iron Saturation 34 % (15-55) 01/20/18 12:50 Unsaturated IBC 105 ug/dL (118-369) L 01/20/18 12:50 Ferritin 1230 ng/mL (15-150) H 01/20/18 12:50 Total Bilirubin 0.3 mg/dL (0.3-1.0) 01/29/18 05:10 Direct Bilirubin 0.07 mg/dL (0.0-0.2) 01/20/18 12:30 AST 54 U/L (13-39) H 01/29/18 05:10 ALT 93 U/L (7-52) H 01/29/18 05:10 Alkaline Phosphatase 105 U/L (34-104) H 01/29/18 05:10 Troponin I 0.03 ng/mL (0.01-0.05) 01/20/18 12:15 C-Reactive Protein 4.3 mg/dL (0.0-0.9) H 01/20/18 12:50 B-Natriuretic Peptide 185.0 pg/mL (5.0-100.0) H 01/25/18 04:20 Total Protein 3.7 gm/dL (6.0-8.3) L 01/29/18 05:10 Albumin 1.6 gm/dL (3.7-5.3) L 01/29/18 05:10 Globulin 2.1 gm/dL 01/29/18 05:10 Albumin/Globulin Ratio 0.8 (1.0-1.8) L 01/29/18 05:10 Triglycerides 97 mg/dL (<150) 01/20/18 12:15 Cholesterol 195 mg/dL (<200) 01/20/18 12:15 LDL Cholesterol Direct 152 mg/dL (75-193) 01/20/18 12:15 HDL Cholesterol 40 mg/dL (23-92) 01/20/18 12:15 Lipase 108 U/L (11-82) H 01/20/18 12:15 Free T4 1.12 ng/dL (0.82-1.77) 01/20/18 12:50 TSH 0.06 uIU/ml (0.34-5.60) L 01/20/18 12:15 Urine Source [place] 01/28/18 17:10 Urine Color YELLOW 01/28/18 17:10 Urine Clarity CLOUDY (CLEAR) H 01/28/18 17:10 Urine pH 6.0 (4.6 - 8.0) 01/28/18 17:10 Ur Specific [place] 1.020 (1.005-1.030) 01/28/18 17:10 Urine Protein 100 mg/dL (NEGATIVE) H 01/28/18 17:10 Urine Glucose (UA) NEGATIVE mg/dL (NEGATIVE) 01/28/18 17:10 Urine Ketones NEGATIVE mg/dL (NEGATIVE) 01/28/18 17:10 Urine Blood MODERATE (NEGATIVE) H 01/28/18 17:10 Urine Nitrate NEGATIVE (NEGATIVE) 01/28/18 17:10 Urine Bilirubin NEGATIVE (NEGATIVE) 01/28/18 17:10 Urine Urobilinogen 0.2 E.U./dL (0.2 - 1.0) 01/28/18 17:10 Ur Leukocyte Esterase MODERATE (NEGATIVE) H 01/28/18 17:10 Urine RBC 5-10 /hpf (0-5) H 01/28/18 17:10 Urine WBC 10-25 /hpf (0-5) H 01/28/18 17:10 Ur Epithelial Cells OCCASIONAL /lpf (FEW) 01/28/18 17:10 Urine Bacteria OCCASIONAL /hpf (NONE SEEN) 01/28/18 17:10 Urine Yeast MANY /hpf (NONE SEEN) H 01/28/18 17:10 Ur Random Sodium 56 mmol/L 01/28/18 17:10 Urine Creatinine 39.0 mg/dl (28.0-217.0) 01/28/18 17:10 Vancomycin Trough 27.8 ug/mL (10-20) H 01/26/18 23:00 Random Vancomycin 23.0 ug/mL (5.0-40.0) 01/30/18 05:06 Blood Type O POSITIVE 01/30/18 07:35 Antibody Screen NEGATIVE 01/30/18 07:35 Crossmatch See Detail 01/30/18 07:35 - Physical Exam Vitals and I&O: Vital Signs Temp 96.9 F 01/30/18 16:00 Pulse 61 01/31/18 15:33 Resp 14 01/31/18 06:00 BP 159/77 01/31/18 09:47 Pulse Ox 100 01/31/18 15:33 Intake & Output 01/30/18 01/31/18 01/31/18 18:59 06:59 18:59 Intake Total 100 1580 100 Output Total 1251 Balance 100 329 100 Weight (lbs) 56.699 kg Intake: Intake, IV Amount 100 550 100 Albumin 25% 25gm/100mL 25 100 200 100 gm In 100 ml @ 50 mls/hr IV Q8H [facility] Rx#:[id number] Fluconazole 100mg/50mL 50 100 mg In 50 ml @ 50 mls/ hr IV Q24HR [facility] Rx#: [id number] Meropenem 1 gm In Sodium 100 Chloride 0.9% 100 ml @ 100 mls/hr IV Q12H [facility] Rx #:[id number] metroNIDAZOLE 500mg/NS 200 100mL 500 mg In 100 ml @ 100 mls/hr IV Q8HR [facility] Rx #:[id number] Tube Feeding 1030 Output: Urine 250 Stool 1 Hemodialysis 1000 Other: Stool Characteristics Soft Soft Liquid Liquid Active Medications: Current Medications Acetaminophen (Tylenol) 650 mg PO Q4H PRN PRN Reason: MILD PAIN OR TEMP >100.4 Stop: 03/21/18 16:07 Al Hydrox/Mg Hydrox/Simethicone (Maalox) 30 ml PO Q6HR PRN PRN Reason: GI DISTRESS Stop: 03/21/18 16:28 Albuterol/Ipratropium (Duoneb Neb) 3 ml HHN Q6HRT [facility] Stop: 03/30/18 00:59 Last Admin: 01/31/18 13:47 Dose: 3 ml Artificial Tears (Artificial Tears Ophth Soln) 1 drop EACH EYE Q2HR PRN PRN Reason: Dry Eye Stop: 03/27/18 09:28 Last Admin: 01/26/18 10:13 Dose: 1 drop Atorvastatin Calcium (Lipitor) 80 mg PO HS [facility] PRN Reason: Protocol Stop: 03/21/18 20:59 Last Admin: 01/30/18 21:09 Dose: 80 mg Bisacodyl (Dulcolax 10 Mg Supp) 10 mg RC DAILY PRN PRN Reason: Constipation Stop: 03/21/18 16:07 Budesonide (Pulmicort) 0.5 mg HHN BIDRT [facility] Stop: 04/01/18 18:59 Carvedilol (Coreg) 12.5 mg PO BID [facility] Stop: 03/21/18 16:59 Last Admin: 01/31/18 09:47 Dose: 12.5 mg Chlorhexidine Gluconate (Peridex) 15 ml MM 0800,2000 [facility] Stop: 03/27/18 07:59 Last Admin: 01/31/18 09:47 Dose: 15 ml Dextrose (D50w) 50 ml IVP PRN PRN PRN Reason: HYPOGLYCEMIA Stop: 03/21/18 16:07 Diltiazem HCl (Cardizem) 60 mg PO Q6HR [facility] Stop: 03/21/18 17:59 Last Admin: 01/31/18 12:39 Dose: Not Given Enalaprilat (Vasotec) 2.5 mg IVP Q6HR PRN PRN Reason: SBP ABOVE 160 Stop: 03/25/18 11:59 Last Admin: 01/24/18 15:13 Dose: 2.5 mg Furosemide (Lasix) 40 mg IVP DAILY [facility] Stop: 02/01/18 09:01 Last Admin: 01/31/18 09:45 Dose: 40 mg Glucagon (Glucagen) 1 mg IVP PRN PRN PRN Reason: HYPOGLYCEMIA Stop: 03/21/18 16:25 Heparin Sodium (Porcine) (Heparin) 5,000 units HD UD [facility] Stop: 01/31/18 17:08 Last Admin: 01/31/18 09:45 Dose: 5,000 units Meropenem 1 gm/ Sodium (Chloride) 100 mls @ 100 mls/hr IV Q12H [facility] Stop: 03/26/18 08:59 Last Admin: 01/31/18 14:00 Dose: 100 mls/hr Phenylephrine HCl 10 mg/ (Sodium Chloride) 250 mls @ 75 mls/hr IV TITR [facility]; 50 MCG/MIN PRN Reason: Protocol Stop: 03/25/18 20:14 Norepinephrine Bitartrate 4 mg (/ Sodium Chloride) 254 mls @ 15.24 mls/hr IV TITR [facility]; 4 MCG/MIN PRN Reason: Protocol Stop: 03/26/18 08:14 Last Titration: 01/27/18 00:22 Dose: 0 mcg/min, 0 mls/hr Fluconazole (Diflucan) 100 mg in 50 mls @ 50 mls/hr IV Q24HR [facility] Stop: 03/30/18 15:59 Last Infusion: 01/31/18 06:21 Dose: Infused Albumin Human (Albuminar 25%) 25 gm in 100 mls @ 50 mls/hr IV Q8H [facility] Stop: 02/02/18 01:59 Last Infusion: 01/31/18 14:45 Dose: Infused Metronidazole (Flagyl) 500 mg in 100 mls @ 100 mls/hr IV Q8HR [facility] Stop: 03/31/18 20:59 Last Admin: 01/31/18 14:47 Dose: 100 mls/hr Insulin Aspart (Novolog Insulin Sliding Scale) 0 units SUBQ Q6HR [facility] PRN Reason: Protocol Stop: 03/27/18 00:00 Last Admin: 01/31/18 12:38 Dose: Not Given Magnesium Hydroxide (Milk Of Magnesia) 30 ml PO DAILY PRN PRN Reason: IF NO BM IN TWO DAYS Stop: 03/21/18 16:07 Megestrol Acetate (Megace) 400 mg PO BID [facility] Stop: 03/21/18 16:59 Last Admin: 01/31/18 09:44 Dose: 400 mg Metoprolol Tartrate (Lopressor) 5 mg IV Q4H PRN PRN Reason: Tachycardia Stop: 03/25/18 12:29 Miscellaneous (Vancomycin Iv Per Pharmacy) 1 ea MC PRN [facility] Stop: 03/25/18 17:59 Multivitamins/Vitamin C (Theragran) 1 tab PO DAILY [facility] Stop: 03/22/18 08:59 Last Admin: 01/31/18 09:44 Dose: 1 tab Ondansetron HCl (Zofran Odt) 4 mg PO Q6H PRN PRN Reason: Nausea / Vomiting Stop: 03/21/18 16:07 Pantoprazole Sodium (Protonix) 40 mg NG DAILY [facility] Stop: 03/28/18 16:59 Last Admin: 01/31/18 09:44 Dose: 40 mg Prednisone (Deltasone) 10 mg PO DAILY [facility] Stop: 03/22/18 08:59 Last Admin: 01/31/18 09:44 Dose: 10 mg Sodium Bicarbonate (Sodium Bicarbonate) 650 mg PO BID [facility] PRN Reason: Protocol Stop: 03/29/18 16:59 Last Admin: 01/31/18 09:44 Dose: 650 mg Sodium Phosphate (Fleet Enema) 135 ml RC DAILY PRN PRN Reason: Constipation Stop: 03/21/18 16:07 Vitamin A (Vitamin A & D) 5 gm TP DAILY [facility] Stop: 03/22/18 08:59 Last Admin: 01/31/18 14:44 Dose: 5 gm General: no acute distress, well developed, well nourished HEENT: atraumatic, normocephalic, PERRLA, EOMI Neck: supple, no thyromegaly Cardiovascular: S1S2, regular Lungs: clear to percussion, rhonchi Abdomen: soft, no tender, no distended, no mass Extremities: no cyanosis, no clubbing, no edema Skin: intact - Procedures Procedures: Procedures Procedure Code Date INSERT EMERGENCY AIRWAY 15655 01/20/18 INSERTION OF ENDOTRACHEAL AIRWAY INTO [place], VIA OPENING [id number] 01/20/18 RESPIRATORY VENTILATION, GREATER THAN 96 CONSECUTIVE HOURS [id number] 01/20/18 VENT MGMT INPAT IN DAY 56189 01/20/18 Infectious Disease Assmt/Plan - Problem List Patient Problems: All Active Problems ELEVATED WBC, LUNG INFILTRATES (Acute) - Assessment Assessment: 1. Leukocytosis. suspect sepsis. 2. Pneumonia. L lung. 3. Dementia 4. S/p CP arrest. 5. Anoxic encephalopathy. 6. VDRF. 7. Increaing creatinine. LAURENCE. oliguric. - Plan Plan: Continue vanco IV and meropenem. sepsis w/u. continue flagyl suspecting c diff at this high WBC count. Nutritional Asmnt/Malnutr-PDOC - Dietary Evaluation Malnutrition Findings (Please click <Entered> for more info): Nutritional Asmnt/Malnutrition Start: 01/21/18 16: 32 Text: Status: Complete Freq: Document 01/21/18 16:32 [facility] (Rec: 01/21/18 16:48 [email or web address] Nutritional Asmnt/Malnutrition Patient General Information Nutritional Screening High Risk Consult Diagnosis left lung infiltrate Pertinent Medical Hx/Surgical Hx dementia, HTN, hyperlipidemia per ER notes, no H&P at this time Subjective Information Pt seen sleeping at time of visit, not able to wake up for lunch. Per [employer], pt only had cereal and scrambled eggs this morning, not able to chew the [place] toast d/t weakness. Current Diet Order/ Nutrition Support low cholesterol 300gm Pertinent Medications D5-0.45ns, novolog, megace, theragran, piperacillin, vit A &D Pertinent Labs 01/21 BUN 32, Glucose 180, POC 142-261 01/20 A1c 5.1, POC 127-165 Nutritional Hx/Data Height 1.6 m Height (Calculated Centimeters) 160.0 Current Weight (lbs) 37.648 kg Weight (Calculated Kilograms) 37.6 Weight (Calculated Grams) 38599.2 [place] Body Weight 115 Body Mass Index (BMI) 14.7 Weight Status Underweight GI Symptoms GI Symptoms None Last BM none Difficult in: None Skin Integrity/Comment: reddened to vagina and coccyx Current %PO Poor (25-49%) Estimated Nutritional Goals Calories/Kcals/Kg 25-30 Kcals Calculated 2864-4262 Protein g/k Protein Calculated 52 Fluid: ml 1300-1560ml (1ml/kcal) Nutritional Problem 2. Problem Problem chewing difficulty Etiology weakness, sleepy Signs/Symptoms: pt need for mech soft diet 1. Problem Problem altered nutrition related lab values Etiology hyperglycemia Signs/Symptoms: Glucose 180, POC 127-261 Intervention/Recommendation Comments 1. Recommend [facility] soft ground diet with Boost BID to increase nutrition intake. 2. Monitor PO intake, wt, labs and skin integrity 3. F/U as high risk in 2-3 days, 01/23-01/24 Expected Outcomes/Goals Expected Outcomes/Goals 1. PO intake to meet at least 75% of nutritional needs. 2. Wt stability, skin to remain intact, labs to approach WNL.
[2018-01-31] MEDS: Fluconazole 100mg/50mL 100 MG/50 ML BOTTLE IV SCH (17:52)
[2018-01-31] MEDS: Budesonide 0.5 Mg/2 mL Ud HHN SCH (18:20)
[2018-02-01] MEDS: Albuterol/Ipratropium Neb 3 ML AERS HHN SCH ×4 (00:42→18:52)
[2018-02-01] MEDS: metroNIDAZOLE 500mg/NS 100mL 500 MG/100 ML BAG IV SCH ×3 (04:18→22:00)
[2018-02-01 05:28] LABS: % EOSINOPHILS 0.9 % (0.0-5.0); % LYMPHOCYTES 4.9 % (20.0-50.0); % MONOCYTES 5.6 % (2.0-10.0); % NEUTROPHILS 88.6 % (40.0-80.0); EOSINOPHILE ABSOLUTE 0.1 Th/cmm (0.1-0.4); HEMOGLOBIN 12.7 gm/dL (12-16); LYMPHOCYTE ABSOLUTE 0.7 Th/cmm (1.5-3.0); MEAN CELL VOLUME 90.1 fl (81-100); MEAN CORPUSCULAR HEMOGLOBIN 30.2 pg (27.0-31.0); MEAN CORPUSCULAR HGB CONC 33.5 pg (28.0-36.0); MEAN PLATELET VOLUME 9.2 fl; MONOCYTE ABSOLUTE 0.8 Th/cmm (0.3-1.0); NEUTROPHILE ABSOLUTE 12.9 Th/cmm (1.8-8.0); PLATELET COUNT 103 Th/cmm (150-400); RED BLOOD COUNT 4.22 Mil/cmm (3.80-5.20); RED CELL DISTRIBUTION WIDTH 15.2 % (11.5-20.0)
[2018-02-01 05:43] LABS: ANION GAP 13.6 (7.0-16.0); BUN - UREA NITROGEN 49 mg/dL (7-25); CALCIUM SERUM 8.1 mg/dL (8.6-10.3); CARBON DIOXIDE 23.4 mEq/L (21.0-31.0); CHLORIDE 105 mEq/L (98-107); CREATININE - SERUM 1.9 mg/dL (0.6-1.2); GLUCOSE 126 mg/dL (70-105); SODIUM SERUM 138 mEq/L (136-145)
[2018-02-01] MEDS: INSULIN ASPART SLIDING SCALE 100 UNITS/ML UNIT SUBQ SCH ×4 (05:52→23:59)
[2018-02-01] MEDS: Diltiazem 30 mg Tab PO SCH ×4 (05:58→23:59)
[2018-02-01 06:03] LABS: WHITE BLOOD COUNT 14.5 Th/cmm (4.8-10.8)
[2018-02-01] MEDS: Budesonide 0.5 Mg/2 mL Ud HHN SCH ×2 (07:40→18:52)
[2018-02-01] MEDS: Albumin 25% 25gm/100mL 25 GM/100 ML BTL IV SCH ×3 (08:00→23:55)
[2018-02-01] MEDS: Chlorhexidine Gluconate 0.12% 15mL Mouthwash MM SCH ×2 (08:30→20:28)
[2018-02-01] MEDS: Multivitamin Tab PO SCH (09:00)
[2018-02-01] MEDS: Pantoprazole 40 mg/Packet NG SCH (09:00)
--- NOTE | 2018-02-01 11:01 | Diagnostic Imaging Report ---
Exam: Portable examination of chest. HISTORY: Left jugular catheter placement. Portable examination of chest at 1052 hours reviewed compared to prior study day earlier demonstrates a unchanged appearance of the endotracheal tube, NG tube and left-sided subclavian catheter terminates in superior vena cava. Mediastinal structures midline the heart is not enlarged aortic arch calcified. Mild atelectatic changes are noted in left base. The costophrenic angles are clear. COPD changes appreciated. IMPRESSION: Satisfactory positioning of left subclavian catheter with tip in superior vena cava COPD changes Left basilar atelectasis
--- NOTE | 2018-02-01 11:15 | Operative Report ---
DATE OF SURGERY: 02/01/2018 PREOPERATIVE DIAGNOSES: 1. Acute renal failure. 2. Malfunctioning Jose Maria catheter. POSTOPERATIVE DIAGNOSES: 1. Acute renal failure. 2. Malfunctioning Jose Maria catheter. OPERATION DONE: Replacement of Jose Maria catheter. PROCEDURE: The exit site of the catheter was prepped with Betadine and draped. A 1% lidocaine was infiltrated in the area of exit site. Guide was inserted into venous port and the old catheter was removed and a 20 cm triple lumen catheter was inserted. The patient tolerated the procedure well. Portable chest x-ray is ordered. JOB# [id number]
[2018-02-01] MEDS ORDERED: Alteplase, Recombinant 100 mg Kit IV STA (14:27)
--- NOTE | 2018-02-01 14:41 | Infectious Disease Prog Note ---
Infectious Disease Subjective - Review of Systems Service Date: 02/01/18 Subjective: No fever, remains intubated orally. on the ventilator support. Infectious Disease Objective - Results Result Diagrams: 02/01/18 04:10 02/01/18 04:10 Recent Labs: Laboratory Last Values WBC 14.5 Th/cmm (4.8-10.8) H D 02/01/18 04:10 RBC 4.22 Mil/cmm (3.80-5.20) 02/01/18 04:10 Hgb 12.7 gm/dL (12-16) 02/01/18 04:10 Hct 38.0 % (41.0-60) L 02/01/18 04:10 MCV 90.1 fl (81-100) 02/01/18 04:10 MCH 30.2 pg (27.0-31.0) 02/01/18 04:10 MCHC Differential 33.5 pg (28.0-36.0) 02/01/18 04:10 RDW 15.2 % (11.5-20.0) 02/01/18 04:10 Plt Count 103 Th/cmm (150-400) L 02/01/18 04:10 MPV 9.2 fl 02/01/18 04:10 Neutrophils % 88.6 % (40.0-80.0) H 02/01/18 04:10 Band Neutrophils % 5 % (0-10) 01/31/18 04:10 Lymphocytes % 4.9 % (20.0-50.0) L 02/01/18 04:10 Monocytes % 5.6 % (2.0-10.0) 02/01/18 04:10 Eosinophils % 0.9 % (0.0-5.0) 02/01/18 04:10 Basophils % 0.0 % (0.0-2.0) 02/01/18 04:10 Neutrophils (Manual) 83 % (40-80) H 01/31/18 04:10 Lymphocytes 8 % (20-50) L 01/31/18 04:10 Monocytes 4 % (2-10) 01/31/18 04:10 Eosinophils 0 % (0-5) 01/27/18 04:58 Basophils 0 % (0-3) 01/27/18 04:58 Platelet Estimate SLIGHT DECREASED (NORMAL) 01/31/18 04:10 Platelet Morphology NORMAL (NORMAL) 01/27/18 04:58 RBC Morph Micro Appear NORMAL (NORMAL) 01/27/18 04:58 Eos Smear Source URINE 01/28/18 17:10 Eos Smear Total Cells NONE SEEN (NONE SEEN) 01/28/18 17:10 PT 9.3 SECONDS (9.5-11.5) L 01/29/18 21:26 INR 0.90 (0.5-1.4) 01/29/18 21:26 PTT (Actin FS) 46.6 SECONDS (26.0-38.0) H 01/29/18 21:26 Specimen Source Arterial 01/24/18 17:45 Sample Site Left Radial 01/24/18 17:45 pH 7.41 (7.35-7.45) 01/24/18 17:45 pCO2 32.0 mmHg (35.0-45.0) L 01/24/18 17:45 pO2 397.0 mmHg (80.0-100.0) H 01/24/18 17:45 HCO3 22.3 mEq/L (20.0-26.0) 01/24/18 17:45 Base Excess -3.5 mEq/L (-3.0-3.0) L 01/24/18 17:45 O2 Saturation 100.0 % (92.0-100.0) 01/24/18 17:45 Bebo Test YES 01/24/18 17:45 Vent Rate 14 01/24/18 17:45 Inspired O2 100 01/24/18 17:45 Tidal Volume 450 01/24/18 17:45 PEEP 5 01/24/18 17:45 Pressure (ins/psv/peep) NA 01/24/18 17:45 Critical Value E.BRIDGES 01/24/18 17:45 Sodium 138 mEq/L (136-145) 02/01/18 04:10 Potassium 4.0 mEq/L (3.5-5.1) 02/01/18 04:10 Chloride 105 mEq/L (98-107) 02/01/18 04:10 Carbon Dioxide 23.4 mEq/L (21.0-31.0) 02/01/18 04:10 Anion Gap 13.6 (7.0-16.0) 02/01/18 04:10 BUN 49 mg/dL (7-25) H 02/01/18 04:10 Creatinine 1.9 mg/dL (0.6-1.2) H 02/01/18 04:10 Est GFR ( Amer) TNP 02/01/18 04:10 Est GFR (Non-Af Amer) TNP 02/01/18 04:10 BUN/Creatinine Ratio 25.8 02/01/18 04:10 Glucose 126 mg/dL (70-105) H 02/01/18 04:10 POC Glucose 132 MG/DL (70 - 105) H 02/01/18 13:14 Hemoglobin A1c % 5.1 % (4.0-6.0) 01/20/18 12:15 Plasma/Ser Osmolality 287 mOsmol/kg (280-301) 01/28/18 17:45 Whole Bld Lactic Acid 1.50 mmol/L (0.60-1.99) 01/28/18 13:40 Uric Acid 5.3 mg/dL (2.3-6.6) 01/30/18 05:06 Calcium 8.1 mg/dL (8.6-10.3) L 02/01/18 04:10 Phosphorus 3.3 mg/dL (2.5-5.0) 01/30/18 05:06 Magnesium 2.3 mg/dL (1.9-2.7) 01/30/18 05:06 Iron 54 ug/dL (27-139) 01/20/18 12:50 TIBC 159 ug/dL (250-450) L 01/20/18 12:50 Iron Saturation 34 % (15-55) 01/20/18 12:50 Unsaturated IBC 105 ug/dL (118-369) L 01/20/18 12:50 Ferritin 1230 ng/mL (15-150) H 01/20/18 12:50 Total Bilirubin 0.3 mg/dL (0.3-1.0) 01/29/18 05:10 Direct Bilirubin 0.07 mg/dL (0.0-0.2) 01/20/18 12:30 AST 54 U/L (13-39) H 01/29/18 05:10 ALT 93 U/L (7-52) H 01/29/18 05:10 Alkaline Phosphatase 105 U/L (34-104) H 01/29/18 05:10 Troponin I 0.03 ng/mL (0.01-0.05) 01/20/18 12:15 C-Reactive Protein 4.3 mg/dL (0.0-0.9) H 01/20/18 12:50 B-Natriuretic Peptide 185.0 pg/mL (5.0-100.0) H 01/25/18 04:20 Total Protein 3.7 gm/dL (6.0-8.3) L 01/29/18 05:10 Albumin 1.6 gm/dL (3.7-5.3) L 01/29/18 05:10 Globulin 2.1 gm/dL 01/29/18 05:10 Albumin/Globulin Ratio 0.8 (1.0-1.8) L 01/29/18 05:10 Triglycerides 97 mg/dL (<150) 01/20/18 12:15 Cholesterol 195 mg/dL (<200) 01/20/18 12:15 LDL Cholesterol Direct 152 mg/dL (75-193) 01/20/18 12:15 HDL Cholesterol 40 mg/dL (23-92) 01/20/18 12:15 Lipase 108 U/L (11-82) H 01/20/18 12:15 Free T4 1.12 ng/dL (0.82-1.77) 01/20/18 12:50 TSH 0.06 uIU/ml (0.34-5.60) L 01/20/18 12:15 Urine Source [place]EN [place] 01/28/18 17:10 Urine Color YELLOW 01/28/18 17:10 Urine Clarity CLOUDY (CLEAR) H 01/28/18 17:10 Urine pH 6.0 (4.6 - 8.0) 01/28/18 17:10 Ur Specific [place] 1.020 (1.005-1.030) 01/28/18 17:10 Urine Protein 100 mg/dL (NEGATIVE) H 01/28/18 17:10 Urine Glucose (UA) NEGATIVE mg/dL (NEGATIVE) 01/28/18 17:10 Urine Ketones NEGATIVE mg/dL (NEGATIVE) 01/28/18 17:10 Urine Blood MODERATE (NEGATIVE) H 01/28/18 17:10 Urine Nitrate NEGATIVE (NEGATIVE) 01/28/18 17:10 Urine Bilirubin NEGATIVE (NEGATIVE) 01/28/18 17:10 Urine Urobilinogen 0.2 E.U./dL (0.2 - 1.0) 01/28/18 17:10 Ur Leukocyte Esterase MODERATE (NEGATIVE) H 01/28/18 17:10 Urine RBC 5-10 /hpf (0-5) H 01/28/18 17:10 Urine WBC 10-25 /hpf (0-5) H 01/28/18 17:10 Ur Epithelial Cells OCCASIONAL /lpf (FEW) 01/28/18 17:10 Urine Bacteria OCCASIONAL /hpf (NONE SEEN) 01/28/18 17:10 Urine Yeast MANY /hpf (NONE SEEN) H 01/28/18 17:10 Ur Random Sodium 56 mmol/L 01/28/18 17:10 Urine Creatinine 39.0 mg/dl (28.0-217.0) 01/28/18 17:10 Vancomycin Trough 27.8 ug/mL (10-20) H 01/26/18 23:00 Random Vancomycin 29.6 ug/mL (5.0-40.0) 02/01/18 04:10 Blood Type O POSITIVE 01/30/18 07:35 Antibody Screen NEGATIVE 01/30/18 07:35 Crossmatch See Detail 01/30/18 07:35 - Physical Exam Vitals and I&O: Vital Signs Temp 97.0 F 02/01/18 04:00 Pulse 64 02/01/18 13:18 Resp 14 02/01/18 06:00 BP 155/72 02/01/18 06:00 Pulse Ox 100 02/01/18 13:18 Intake & Output 01/31/18 02/01/18 02/01/18 18:59 06:59 18:59 Intake Total 800 800 Output Total 225 250 Balance 575 550 Weight (lbs) 56.699 kg 56.699 kg Intake: Intake, IV Amount 300 400 Albumin 25% 25gm/100mL 25 100 200 gm In 100 ml @ 50 mls/hr IV Q8H [facility] Rx#:[id number] Meropenem 1 gm In Sodium 100 100 Chloride 0.9% 100 ml @ 100 mls/hr IV Q12H [facility] Rx #:[id number] metroNIDAZOLE 500mg/NS 100 100 100mL 500 mg In 100 ml @ 100 mls/hr IV Q8HR [facility] Rx #:[id number] Other 500 400 Output: Urine 225 250 Other: # Bowel Movements 1 1 Stool Characteristics Soft Soft Liquid Formed Active Medications: Current Medications Acetaminophen (Tylenol) 650 mg PO Q4H PRN PRN Reason: MILD PAIN OR TEMP >100.4 Stop: 03/21/18 16:07 Al Hydrox/Mg Hydrox/Simethicone (Maalox) 30 ml PO Q6HR PRN PRN Reason: GI DISTRESS Stop: 03/21/18 16:28 Albuterol/Ipratropium (Duoneb Neb) 3 ml HHN Q6HRT [facility] Stop: 03/30/18 00:59 Last Admin: 02/01/18 13:17 Dose: 3 ml Alteplase, Recombinant (Activase) 100 mg IV NOW STA Stop: 02/01/18 14:28 Artificial Tears (Artificial Tears Ophth Soln) 1 drop EACH EYE Q2HR PRN PRN Reason: Dry Eye Stop: 03/27/18 09:28 Last Admin: 01/26/18 10:13 Dose: 1 drop Atorvastatin Calcium (Lipitor) 80 mg PO HS [facility] PRN Reason: Protocol Stop: 03/21/18 20:59 Last Admin: 01/31/18 21:10 Dose: 80 mg Bisacodyl (Dulcolax 10 Mg Supp) 10 mg RC DAILY PRN PRN Reason: Constipation Stop: 03/21/18 16:07 Budesonide (Pulmicort) 0.5 mg HHN BIDRT [facility] Stop: 04/01/18 18:59 Last Admin: 02/01/18 07:40 Dose: 0.5 mg Carvedilol (Coreg) 12.5 mg PO BID [facility] Stop: 03/21/18 16:59 Last Admin: 01/31/18 17:13 Dose: 12.5 mg Chlorhexidine Gluconate (Peridex) 15 ml MM 0800,2000 [facility] Stop: 03/27/18 07:59 Last Admin: 01/31/18 21:10 Dose: 15 ml Dextrose (D50w) 50 ml IVP PRN PRN PRN Reason: HYPOGLYCEMIA Stop: 03/21/18 16:07 Diltiazem HCl (Cardizem) 60 mg PO Q6HR [facility] Stop: 03/21/18 17:59 Last Admin: 02/01/18 05:58 Dose: Not Given Enalaprilat (Vasotec) 2.5 mg IVP Q6HR PRN PRN Reason: SBP ABOVE 160 Stop: 03/25/18 11:59 Last Admin: 01/24/18 15:13 Dose: 2.5 mg Glucagon (Glucagen) 1 mg IVP PRN PRN PRN Reason: HYPOGLYCEMIA Stop: 03/21/18 16:25 Meropenem 1 gm/ Sodium (Chloride) 100 mls @ 100 mls/hr IV Q12H [facility] Stop: 03/26/18 08:59 Last Infusion: 01/31/18 22:10 Dose: Infused Phenylephrine HCl 10 mg/ (Sodium Chloride) 250 mls @ 75 mls/hr IV TITR [facility]; 50 MCG/MIN PRN Reason: Protocol Stop: 03/25/18 20:14 Norepinephrine Bitartrate 4 mg (/ Sodium Chloride) 254 mls @ 15.24 mls/hr IV TITR [facility]; 4 MCG/MIN PRN Reason: Protocol Stop: 03/26/18 08:14 Last Titration: 01/27/18 00:22 Dose: 0 mcg/min, 0 mls/hr Albumin Human (Albuminar 25%) 25 gm in 100 mls @ 50 mls/hr IV Q8H [facility] Stop: 02/02/18 01:59 Last Infusion: 02/01/18 01:40 Dose: Infused Metronidazole (Flagyl) 500 mg in 100 mls @ 100 mls/hr IV Q8HR [facility] Stop: 03/31/18 20:59 Last Admin: 02/01/18 04:18 Dose: 100 mls/hr Insulin Aspart (Novolog Insulin Sliding Scale) 0 units SUBQ Q6HR [facility] PRN Reason: Protocol Stop: 03/27/18 00:00 Last Admin: 02/01/18 05:52 Dose: Not Given Magnesium Hydroxide (Milk Of Magnesia) 30 ml PO DAILY PRN PRN Reason: IF NO BM IN TWO DAYS Stop: 03/21/18 16:07 Megestrol Acetate (Megace) 400 mg PO BID [facility] Stop: 03/21/18 16:59 Last Admin: 01/31/18 17:13 Dose: 400 mg Metoprolol Tartrate (Lopressor) 5 mg IV Q4H PRN PRN Reason: Tachycardia Stop: 03/25/18 12:29 Miscellaneous (Vancomycin Iv Per Pharmacy) 1 ea MC PRN PRN PRN Reason: PHARMACIST TO DOSE Stop: 04/02/18 08:25 Miscellaneous (Misc Oral Tab) 1 tab PO BID [facility] Stop: 02/08/18 17:01 Multivitamins/Vitamin C (Theragran) 1 tab PO DAILY [facility] Stop: 03/22/18 08:59 Last Admin: 01/31/18 09:44 Dose: 1 tab Ondansetron HCl (Zofran Odt) 4 mg PO Q6H PRN PRN Reason: Nausea / Vomiting Stop: 03/21/18 16:07 Pantoprazole Sodium (Protonix) 40 mg NG DAILY [facility] Stop: 03/28/18 16:59 Last Admin: 01/31/18 09:44 Dose: 40 mg Prednisone (Deltasone) 10 mg PO DAILY [facility] Stop: 03/22/18 08:59 Last Admin: 01/31/18 09:44 Dose: 10 mg Sodium Bicarbonate (Sodium Bicarbonate) 650 mg PO BID [facility] PRN Reason: Protocol Stop: 03/29/18 16:59 Last Admin: 01/31/18 17:13 Dose: 650 mg Sodium Phosphate (Fleet Enema) 135 ml RC DAILY PRN PRN Reason: Constipation Stop: 03/21/18 16:07 Vitamin A (Vitamin A & D) 5 gm TP DAILY [facility] Stop: 03/22/18 08:59 Last Admin: 01/31/18 14:44 Dose: 5 gm General: no acute distress, well developed, well nourished HEENT: atraumatic, normocephalic, PERRLA, EOMI, moist mucous membrane Neck: supple, no thyromegaly Cardiovascular: S1S2, regular Lungs: clear to auscultation bilaterally, clear to percussion Abdomen: soft, no tender, no distended Extremities: no cyanosis, no clubbing, no edema Neurological: other (Comatose.) Skin: intact - Procedures Procedures: Procedures Procedure Code Date INSERT EMERGENCY AIRWAY 32185 01/20/18 INSERTION OF ENDOTRACHEAL AIRWAY INTO [place], VIA OPENING [id number] 01/20/18 RESPIRATORY VENTILATION, GREATER THAN 96 CONSECUTIVE HOURS [id number] 01/20/18 VENT MGMT INPAT INIT DAY 20151 01/20/18 Infectious Disease Assmt/Plan - Problem List Patient Problems: All Active Problems ELEVATED WBC, LUNG INFILTRATES (Acute) - Assessment Assessment: 1. Leukocytosis. suspect sepsis. 2. Pneumonia. L lung. 3. Dementia 4. S/p CP arrest. 5. Anoxic encephalopathy. 6. VDRF. 7. Increaing creatinine. LAUERNCE. oliguric. 8. pulmonary aspergillosis. - Plan Plan: Continue vanco IV and meropenem. Change diflucan to voriconazole po ( not IV). 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 sepsis w/u. continue flagyl suspecting c diff at this high WBC count. Nutritional Asmnt/Malnutr-PDOC - Dietary Evaluation Malnutrition Findings (Please click <Entered> for more info): Nutritional Asmnt/Malnutrition Start: 01/21/18 16: 32 Text: Status: Complete Freq: Document 01/21/18 16:32 TROY (Rec: 01/21/18 16:48 LCHEN [email or web address]) Nutritional Asmnt/Malnutrition Patient General Information Nutritional Screening High Risk Consult Diagnosis left lung infiltrate Pertinent Medical Hx/Surgical Hx dementia, HTN, hyperlipidemia per ER notes, no H&P at this time Subjective Information Pt seen sleeping at time of visit, not able to wake up for lunch. Per DIET CONSULTANT, pt only had cereal and scrambled eggs this morning, not able to chew the Kinyarwanda toast d/t weakness. Current Diet Order/ Nutrition Support low cholesterol 300gm Pertinent Medications D5-0.45ns, novolog, megace, theragran, piperacillin, vit A &D Pertinent Labs 01/21 BUN 32, Glucose 180, POC 142-261 01/20 A1c 5.1, POC 127-165 Nutritional Hx/Data Height 1.6 m Height (Calculated Centimeters) 160.0 Current Weight (lbs) 37.648 kg Weight (Calculated Kilograms) 37.6 Weight (Calculated Grams) 03271.2 [place] Body Weight 115 Body Mass Index (BMI) 14.7 Weight Status Underweight GI Symptoms GI Symptoms None Last BM none Difficult in: None Skin Integrity/Comment: reddened to vagina and coccyx Current %PO Poor (25-49%) Estimated Nutritional Goals Calories/Kcals/Kg 25-30 Kcals Calculated 9624-1963 Protein g/k Protein Calculated 52 Fluid: ml 1300-1560ml (1ml/kcal) Nutritional Problem 2. Problem Problem chewing difficulty Etiology weakness, sleepy Signs/Symptoms: pt need for mech soft diet 1. Problem Problem altered nutrition related lab values Etiology hyperglycemia Signs/Symptoms: Glucose 180, POC 127-261 Intervention/Recommendation Comments 1. Recommend [facility] soft ground diet with Boost BID to increase nutrition intake. 2. Monitor PO intake, wt, labs and skin integrity 3. F/U as high risk in 2-3 days, 01/23-01/24 Expected Outcomes/Goals Expected Outcomes/Goals 1. PO intake to meet at least 75% of nutritional needs. 2. Wt stability, skin to remain intact, labs to approach WNL.
--- NOTE | 2018-02-01 15:25 | General Progress Note ---
Subjective - Review of Systems Service Date: 02/01/18 Subjective: less reponsive today, on vent Objective - Results Result Diagrams: 02/01/18 04:10 02/01/18 04:10 Recent Labs: Laboratory Last Values WBC 14.5 Th/cmm (4.8-10.8) H D 02/01/18 04:10 RBC 4.22 Mil/cmm (3.80-5.20) 02/01/18 04:10 Hgb 12.7 gm/dL (12-16) 02/01/18 04:10 Hct 38.0 % (41.0-60) L 02/01/18 04:10 MCV 90.1 fl (81-100) 02/01/18 04:10 MCH 30.2 pg (27.0-31.0) 02/01/18 04:10 MCHC Differential 33.5 pg (28.0-36.0) 02/01/18 04:10 RDW 15.2 % (11.5-20.0) 02/01/18 04:10 Plt Count 103 Th/cmm (150-400) L 02/01/18 04:10 MPV 9.2 fl 02/01/18 04:10 Neutrophils % 88.6 % (40.0-80.0) H 02/01/18 04:10 Band Neutrophils % 5 % (0-10) 01/31/18 04:10 Lymphocytes % 4.9 % (20.0-50.0) L 02/01/18 04:10 Monocytes % 5.6 % (2.0-10.0) 02/01/18 04:10 Eosinophils % 0.9 % (0.0-5.0) 02/01/18 04:10 Basophils % 0.0 % (0.0-2.0) 02/01/18 04:10 Neutrophils (Manual) 83 % (40-80) H 01/31/18 04:10 Lymphocytes 8 % (20-50) L 01/31/18 04:10 Monocytes 4 % (2-10) 01/31/18 04:10 Eosinophils 0 % (0-5) 01/27/18 04:58 Basophils 0 % (0-3) 01/27/18 04:58 Platelet Estimate SLIGHT DECREASED (NORMAL) 01/31/18 04:10 Platelet Morphology NORMAL (NORMAL) 01/27/18 04:58 RBC Morph Micro Appear NORMAL (NORMAL) 01/27/18 04:58 Eos Smear Source URINE 01/28/18 17:10 Eos Smear Total Cells NONE SEEN (NONE SEEN) 01/28/18 17:10 PT 9.3 SECONDS (9.5-11.5) L 01/29/18 21:26 INR 0.90 (0.5-1.4) 01/29/18 21:26 PTT (Actin FS) 46.6 SECONDS (26.0-38.0) H 01/29/18 21:26 Specimen Source Arterial 01/24/18 17:45 Sample Site Left Radial 01/24/18 17:45 pH 7.41 (7.35-7.45) 01/24/18 17:45 pCO2 32.0 mmHg (35.0-45.0) L 01/24/18 17:45 pO2 397.0 mmHg (80.0-100.0) H 01/24/18 17:45 HCO3 22.3 mEq/L (20.0-26.0) 01/24/18 17:45 Base Excess -3.5 mEq/L (-3.0-3.0) L 01/24/18 17:45 O2 Saturation 100.0 % (92.0-100.0) 01/24/18 17:45 Bebo Test YES 01/24/18 17:45 Vent Rate 14 01/24/18 17:45 Inspired O2 100 01/24/18 17:45 Tidal Volume 450 01/24/18 17:45 PEEP 5 01/24/18 17:45 Pressure (ins/psv/peep) NA 01/24/18 17:45 Critical Value E.BRIDGES 01/24/18 17:45 Sodium 138 mEq/L (136-145) 02/01/18 04:10 Potassium 4.0 mEq/L (3.5-5.1) 02/01/18 04:10 Chloride 105 mEq/L (98-107) 02/01/18 04:10 Carbon Dioxide 23.4 mEq/L (21.0-31.0) 02/01/18 04:10 Anion Gap 13.6 (7.0-16.0) 02/01/18 04:10 BUN 49 mg/dL (7-25) H 02/01/18 04:10 Creatinine 1.9 mg/dL (0.6-1.2) H 02/01/18 04:10 Est GFR ( Amer) TNP 02/01/18 04:10 Est GFR (Non-Af Amer) TNP 02/01/18 04:10 BUN/Creatinine Ratio 25.8 02/01/18 04:10 Glucose 126 mg/dL (70-105) H 02/01/18 04:10 POC Glucose 132 MG/DL (70 - 105) H 02/01/18 13:14 Hemoglobin A1c % 5.1 % (4.0-6.0) 01/20/18 12:15 Plasma/Ser Osmolality 287 mOsmol/kg (280-301) 01/28/18 17:45 Whole Bld Lactic Acid 1.50 mmol/L (0.60-1.99) 01/28/18 13:40 Uric Acid 5.3 mg/dL (2.3-6.6) 01/30/18 05:06 Calcium 8.1 mg/dL (8.6-10.3) L 02/01/18 04:10 Phosphorus 3.3 mg/dL (2.5-5.0) 01/30/18 05:06 Magnesium 2.3 mg/dL (1.9-2.7) 01/30/18 05:06 Iron 54 ug/dL (27-139) 01/20/18 12:50 TIBC 159 ug/dL (250-450) L 01/20/18 12:50 Iron Saturation 34 % (15-55) 01/20/18 12:50 Unsaturated IBC 105 ug/dL (118-369) L 01/20/18 12:50 Ferritin 1230 ng/mL (15-150) H 01/20/18 12:50 Total Bilirubin 0.3 mg/dL (0.3-1.0) 01/29/18 05:10 Direct Bilirubin 0.07 mg/dL (0.0-0.2) 01/20/18 12:30 AST 54 U/L (13-39) H 01/29/18 05:10 ALT 93 U/L (7-52) H 01/29/18 05:10 Alkaline Phosphatase 105 U/L (34-104) H 01/29/18 05:10 Troponin I 0.03 ng/mL (0.01-0.05) 01/20/18 12:15 C-Reactive Protein 4.3 mg/dL (0.0-0.9) H 01/20/18 12:50 B-Natriuretic Peptide 185.0 pg/mL (5.0-100.0) H 01/25/18 04:20 Total Protein 3.7 gm/dL (6.0-8.3) L 01/29/18 05:10 Albumin 1.6 gm/dL (3.7-5.3) L 01/29/18 05:10 Globulin 2.1 gm/dL 01/29/18 05:10 Albumin/Globulin Ratio 0.8 (1.0-1.8) L 01/29/18 05:10 Triglycerides 97 mg/dL (<150) 01/20/18 12:15 Cholesterol 195 mg/dL (<200) 01/20/18 12:15 LDL Cholesterol Direct 152 mg/dL (75-193) 01/20/18 12:15 HDL Cholesterol 40 mg/dL (23-92) 01/20/18 12:15 Lipase 108 U/L (11-82) H 01/20/18 12:15 Free T4 1.12 ng/dL (0.82-1.77) 01/20/18 12:50 TSH 0.06 uIU/ml (0.34-5.60) L 01/20/18 12:15 Urine Source ZAPIEN PORT 01/28/18 17:10 Urine Color YELLOW 01/28/18 17:10 Urine Clarity CLOUDY (CLEAR) H 01/28/18 17:10 Urine pH 6.0 (4.6 - 8.0) 01/28/18 17:10 Ur Specific Sneads 1.020 (1.005-1.030) 01/28/18 17:10 Urine Protein 100 mg/dL (NEGATIVE) H 01/28/18 17:10 Urine Glucose (UA) NEGATIVE mg/dL (NEGATIVE) 01/28/18 17:10 Urine Ketones NEGATIVE mg/dL (NEGATIVE) 01/28/18 17:10 Urine Blood MODERATE (NEGATIVE) H 01/28/18 17:10 Urine Nitrate NEGATIVE (NEGATIVE) 01/28/18 17:10 Urine Bilirubin NEGATIVE (NEGATIVE) 01/28/18 17:10 Urine Urobilinogen 0.2 E.U./dL (0.2 - 1.0) 01/28/18 17:10 Ur Leukocyte Esterase MODERATE (NEGATIVE) H 01/28/18 17:10 Urine RBC 5-10 /hpf (0-5) H 01/28/18 17:10 Urine WBC 10-25 /hpf (0-5) H 01/28/18 17:10 Ur Epithelial Cells OCCASIONAL /lpf (FEW) 01/28/18 17:10 Urine Bacteria OCCASIONAL /hpf (NONE SEEN) 01/28/18 17:10 Urine Yeast MANY /hpf (NONE SEEN) H 01/28/18 17:10 Ur Random Sodium 56 mmol/L 01/28/18 17:10 Urine Creatinine 39.0 mg/dl (28.0-217.0) 01/28/18 17:10 Vancomycin Trough 27.8 ug/mL (10-20) H 01/26/18 23:00 Random Vancomycin 29.6 ug/mL (5.0-40.0) 02/01/18 04:10 Blood Type O POSITIVE 01/30/18 07:35 Antibody Screen NEGATIVE 01/30/18 07:35 Crossmatch See Detail 01/30/18 07:35 - Physical Exam Vitals and I&O: Vital Signs Temp 97.0 F 02/01/18 04:00 Pulse 76 02/01/18 15:05 Resp 14 02/01/18 06:00 BP 155/72 02/01/18 06:00 Pulse Ox 100 02/01/18 15:05 Intake & Output 01/31/18 02/01/18 02/01/18 18:59 06:59 18:59 Intake Total 800 800 Output Total 225 250 Balance 575 550 Weight (lbs) 56.699 kg 56.699 kg Intake: Intake, IV Amount 300 400 Albumin 25% 25gm/100mL 25 100 200 gm In 100 ml @ 50 mls/hr IV Q8H [facility] Rx#:[id number] Meropenem 1 gm In Sodium 100 100 Chloride 0.9% 100 ml @ 100 mls/hr IV Q12H [facility] Rx #:[id number] metroNIDAZOLE 500mg/NS 100 100 100mL 500 mg In 100 ml @ 100 mls/hr IV Q8HR [facility] Rx #:[id number] Other 500 400 Output: Urine 225 250 Other: # Bowel Movements 1 1 Stool Characteristics Soft Soft Liquid Formed Weight Source Bedscale Bedscale Active Medications: Current Medications Acetaminophen (Tylenol) 650 mg PO Q4H PRN PRN Reason: MILD PAIN OR TEMP >100.4 Stop: 03/21/18 16:07 Al Hydrox/Mg Hydrox/Simethicone (Maalox) 30 ml PO Q6HR PRN PRN Reason: GI DISTRESS Stop: 03/21/18 16:28 Albuterol/Ipratropium (Duoneb Neb) 3 ml HHN Q6HRT [facility] Stop: 03/30/18 00:59 Last Admin: 02/01/18 13:17 Dose: 3 ml Artificial Tears (Artificial Tears Ophth Soln) 1 drop EACH EYE Q2HR PRN PRN Reason: Dry Eye Stop: 03/27/18 09:28 Last Admin: 01/26/18 10:13 Dose: 1 drop Atorvastatin Calcium (Lipitor) 80 mg PO HS [facility] PRN Reason: Protocol Stop: 03/21/18 20:59 Last Admin: 01/31/18 21:10 Dose: 80 mg Bisacodyl (Dulcolax 10 Mg Supp) 10 mg RC DAILY PRN PRN Reason: Constipation Stop: 03/21/18 16:07 Budesonide (Pulmicort) 0.5 mg HHN BIDRT [facility] Stop: 04/01/18 18:59 Last Admin: 02/01/18 07:40 Dose: 0.5 mg Carvedilol (Coreg) 12.5 mg PO BID [facility] Stop: 03/21/18 16:59 Last Admin: 01/31/18 17:13 Dose: 12.5 mg Chlorhexidine Gluconate (Peridex) 15 ml MM 0800,2000 [facility] Stop: 03/27/18 07:59 Last Admin: 01/31/18 21:10 Dose: 15 ml Dextrose (D50w) 50 ml IVP PRN PRN PRN Reason: HYPOGLYCEMIA Stop: 03/21/18 16:07 Diltiazem HCl (Cardizem) 60 mg PO Q6HR [facility] Stop: 03/21/18 17:59 Last Admin: 02/01/18 05:58 Dose: Not Given Enalaprilat (Vasotec) 2.5 mg IVP Q6HR PRN PRN Reason: SBP ABOVE 160 Stop: 03/25/18 11:59 Last Admin: 01/24/18 15:13 Dose: 2.5 mg Glucagon (Glucagen) 1 mg IVP PRN PRN PRN Reason: HYPOGLYCEMIA Stop: 03/21/18 16:25 Meropenem 1 gm/ Sodium (Chloride) 100 mls @ 100 mls/hr IV Q12H [facility] Stop: 03/26/18 08:59 Last Infusion: 01/31/18 22:10 Dose: Infused Phenylephrine HCl 10 mg/ (Sodium Chloride) 250 mls @ 75 mls/hr IV TITR [facility]; 50 MCG/MIN PRN Reason: Protocol Stop: 03/25/18 20:14 Norepinephrine Bitartrate 4 mg (/ Sodium Chloride) 254 mls @ 15.24 mls/hr IV TITR [facility]; 4 MCG/MIN PRN Reason: Protocol Stop: 03/26/18 08:14 Last Titration: 01/27/18 00:22 Dose: 0 mcg/min, 0 mls/hr Albumin Human (Albuminar 25%) 25 gm in 100 mls @ 50 mls/hr IV Q8H [facility] Stop: 02/02/18 01:59 Last Infusion: 02/01/18 01:40 Dose: Infused Metronidazole (Flagyl) 500 mg in 100 mls @ 100 mls/hr IV Q8HR [facility] Stop: 03/31/18 20:59 Last Admin: 02/01/18 04:18 Dose: 100 mls/hr Insulin Aspart (Novolog Insulin Sliding Scale) 0 units SUBQ Q6HR [facility] PRN Reason: Protocol Stop: 03/27/18 00:00 Last Admin: 02/01/18 05:52 Dose: Not Given Magnesium Hydroxide (Milk Of Magnesia) 30 ml PO DAILY PRN PRN Reason: IF NO BM IN TWO DAYS Stop: 03/21/18 16:07 Megestrol Acetate (Megace) 400 mg PO BID [facility] Stop: 03/21/18 16:59 Last Admin: 01/31/18 17:13 Dose: 400 mg Metoprolol Tartrate (Lopressor) 5 mg IV Q4H PRN PRN Reason: Tachycardia Stop: 03/25/18 12:29 Miscellaneous (Vancomycin Iv Per Pharmacy) 1 ea MC PRN PRN PRN Reason: PHARMACIST TO DOSE Stop: 04/02/18 08:25 Miscellaneous (Misc Oral Tab) 1 tab PO BID [facility] Stop: 02/08/18 09:01 Morphine Sulfate (Morphine) 1 mg IV Q4HR PRN PRN Reason: MOD TO SEVERE PAIN Stop: 04/02/18 15:59 Multivitamins/Vitamin C (Theragran) 1 tab PO DAILY [facility] Stop: 03/22/18 08:59 Last Admin: 01/31/18 09:44 Dose: 1 tab Ondansetron HCl (Zofran Odt) 4 mg PO Q6H PRN PRN Reason: Nausea / Vomiting Stop: 03/21/18 16:07 Pantoprazole Sodium (Protonix) 40 mg NG DAILY [facility] Stop: 03/28/18 16:59 Last Admin: 01/31/18 09:44 Dose: 40 mg Prednisone (Deltasone) 10 mg PO DAILY [facility] Stop: 03/22/18 08:59 Last Admin: 01/31/18 09:44 Dose: 10 mg Sodium Bicarbonate (Sodium Bicarbonate) 650 mg PO BID [facility] PRN Reason: Protocol Stop: 03/29/18 16:59 Last Admin: 01/31/18 17:13 Dose: 650 mg Sodium Phosphate (Fleet Enema) 135 ml RC DAILY PRN PRN Reason: Constipation Stop: 03/21/18 16:07 Vitamin A (Vitamin A & D) 5 gm TP DAILY [facility] Stop: 03/22/18 08:59 Last Admin: 01/31/18 14:44 Dose: 5 gm General: Moderate distress, Other (more awake) HEENT: Atraumatic, Other (facial edema) Neck: Supple, +2 carotid pulse wo bruit Cardiovascular: Regular rate, Normal S1, Normal S2 Lungs: Other (decreased BS, coarse rhonchi) Abdomen: Bowel sounds, Soft Extremities: Edema, Other (less edema) Neurological: Sensation intact Skin: no Rash Psych/Mental Status: Other (obtunded) - Procedures Procedures: Procedures Procedure Code Date INSERT EMERGENCY AIRWAY 55906 01/20/18 INSERTION OF ENDOTRACHEAL AIRWAY INTO [place], VIA OPENING [id number] 01/20/18 RESPIRATORY VENTILATION, GREATER THAN 96 CONSECUTIVE HOURS [id number] 01/20/18 VENT MGMT INPAT INIT DAY [id number] 01/20/18 Assessment/Plan - Problem List Patient Problems: All Active Problems ELEVATED WBC, LUNG INFILTRATES (Acute) - Assessment Assessment: LAURENCE Anuric 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 A. Fib Anemia of CD non Gap met acid yeast UTI - Plan Plan: Lab - Result Diagrams 01/29/18 05:10 01/29/18 05:10 Current Medications Acetaminophen (Tylenol) 650 mg PO Q4H PRN PRN Reason: MILD PAIN OR TEMP >100.4 Stop: 03/21/18 16:07 Al Hydrox/Mg Hydrox/Simethicone (Maalox) 30 ml PO Q6HR PRN PRN Reason: GI DISTRESS Stop: 03/21/18 16:28 Albuterol/Ipratropium (Duoneb Neb) 3 ml HHN Q6HRT [facility] Stop: 03/30/18 00:59 Last Admin: 01/29/18 13:21 Dose: 3 ml Artificial Tears (Artificial Tears Ophth Soln) 1 drop EACH EYE Q2HR PRN PRN Reason: Dry Eye Stop: 03/27/18 09:28 Last Admin: 01/26/18 10:13 Dose: 1 drop Atorvastatin Calcium (Lipitor) 80 mg PO HS [facility] PRN Reason: Protocol Stop: 03/21/18 20:59 Last Admin: 01/28/18 20:32 Dose: 80 mg Bisacodyl (Dulcolax 10 Mg Supp) 10 mg RC DAILY PRN PRN Reason: Constipation Stop: 03/21/18 16:07 Carvedilol (Coreg) 12.5 mg PO BID [facility] Stop: 03/21/18 16:59 Last Admin: 01/29/18 08:10 Dose: 12.5 mg Chlorhexidine Gluconate (Peridex) 15 ml MM 0800,2000 [facility] Stop: 03/27/18 07:59 Last Admin: 01/29/18 08:00 Dose: 15 ml Dextrose (D50w) 50 ml IVP PRN PRN PRN Reason: HYPOGLYCEMIA Stop: 03/21/18 16:07 Diltiazem HCl (Cardizem) 60 mg PO Q6HR [facility] Stop: 03/21/18 17:59 Last Admin: 01/29/18 12:10 Dose: 60 mg Enalaprilat (Vasotec) 2.5 mg IVP Q6HR PRN PRN Reason: SBP ABOVE 160 Stop: 03/25/18 11:59 Last Admin: 01/24/18 15:13 Dose: 2.5 mg Glucagon (Glucagen) 1 mg IVP PRN PRN PRN Reason: HYPOGLYCEMIA Stop: 03/21/18 16:25 Meropenem 1 gm/ Sodium (Chloride) 100 mls @ 100 mls/hr IV Q12H [facility] Stop: 03/26/18 08:59 Last Infusion: 01/29/18 10:30 Dose: Infused Phenylephrine HCl 10 mg/ (Sodium Chloride) 250 mls @ 75 mls/hr IV TITR [facility]; 50 MCG/MIN PRN Reason: Protocol Stop: 03/25/18 20:14 Norepinephrine Bitartrate 4 mg (/ Sodium Chloride) 254 mls @ 15.24 mls/hr IV TITR [facility]; 4 MCG/MIN PRN Reason: Protocol Stop: 03/26/18 08:14 Last Titration: 01/27/18 00:22 Dose: 0 mcg/min, 0 mls/hr Potassium Chloride/Dextrose/Sod Cl (D5-0.9ns W/Kcl 20meq) 1,000 mls @ 75 mls/ hr IV .[id number] [facility] Stop: 03/28/18 14:06 Last Admin: 01/29/18 12:54 Dose: 125 mls/hr Insulin Aspart (Novolog Insulin Sliding Scale) 0 units SUBQ Q6HR [facility] PRN Reason: Protocol Stop: 03/27/18 00:00 Last Admin: 01/29/18 12:09 Dose: 2 units Magnesium Hydroxide (Milk Of Magnesia) 30 ml PO DAILY PRN PRN Reason: IF NO BM IN TWO DAYS Stop: 03/21/18 16:07 Megestrol Acetate (Megace) 400 mg PO BID [facility] Stop: 03/21/18 16:59 Last Admin: 01/29/18 08:10 Dose: 400 mg Metoprolol Tartrate (Lopressor) 5 mg IV Q4H PRN PRN Reason: Tachycardia Stop: 03/25/18 12:29 Miscellaneous (Vancomycin Iv Per Pharmacy) 1 ea MC PRN [facility] Stop: 03/25/18 17:59 Multivitamins/Vitamin C (Theragran) 1 tab PO DAILY [facility] Stop: 03/22/18 08:59 Last Admin: 01/29/18 08:10 Dose: 1 tab Ondansetron HCl (Zofran Odt) 4 mg PO Q6H PRN PRN Reason: Nausea / Vomiting Stop: 03/21/18 16:07 Pantoprazole Sodium (Protonix) 40 mg NG DAILY [facility] Stop: 03/28/18 16:59 Last Admin: 01/29/18 08:10 Dose: 40 mg Prednisone (Deltasone) 10 mg PO DAILY [facility] Stop: 03/22/18 08:59 Last Admin: 01/29/18 08:10 Dose: 10 mg Sodium Bicarbonate (Sodium Bicarbonate) 650 mg PO BID [facility] PRN Reason: Protocol Stop: 03/29/18 16:59 Last Admin: 01/29/18 08:10 Dose: 650 mg Sodium Phosphate (Fleet Enema) 135 ml RC DAILY PRN PRN Reason: Constipation Stop: 03/21/18 16:07 Vitamin A (Vitamin A & D) 5 gm TP DAILY [facility] Stop: 03/22/18 08:59 Last Admin: 01/29/18 12:14 Dose: 5 gm Lab - Result Diagrams 02/01/18 04:10 02/01/18 04:10 kidney fnc slight improvement less peripheral edema decrease IVF & DC K replace Ca, P04, Mg start Diflucan on top of Meropenem Cath poor spencer even after replacement of cath, administer Activase, HD in am WBC down to 14.5 administer NaHC03 initiated on HD due to anuria, fluid retention, acidosis, hyperkalemia Hgb/Hct improved to 12.7/38 CXR still w/ b/l small effusion UOP has picked up Nutritional Asmnt/Malnutr-PDOC - Dietary Evaluation Malnutrition Findings (Please click <Entered> for more info): Nutritional Asmnt/Malnutrition Start: 01/21/18 16: 32 Text: Status: Complete Freq: Document 01/21/18 16:32 LCHENG (Rec: 01/21/18 16:48 LCHENG [email or web address]) Nutritional Asmnt/Malnutrition Patient General Information Nutritional Screening High Risk Consult Diagnosis left lung infiltrate Pertinent Medical Hx/Surgical Hx dementia, HTN, hyperlipidemia per ER notes, no H&P at this time Subjective Information Pt seen sleeping at time of visit, not able to wake up for lunch. Per [employer], pt only had cereal and scrambled eggs this morning, not able to chew the [place] toast d/t weakness. Current Diet Order/ Nutrition Support low cholesterol 300gm Pertinent Medications D5-0.45ns, novolog, megace, theragran, piperacillin, vit A &D Pertinent Labs 01/21 BUN 32, Glucose 180, POC 142-261 01/20 A1c 5.1, POC 127-165 Nutritional Hx/Data Height 1.6 m Height (Calculated Centimeters) 160.0 Current Weight (lbs) 37.648 kg Weight (Calculated Kilograms) 37.6 Weight (Calculated Grams) 03521.2 [place] Body Weight 115 Body Mass Index (BMI) 14.7 Weight Status Underweight GI Symptoms GI Symptoms None Last BM none Difficult in: None Skin Integrity/Comment: reddened to vagina and coccyx Current %PO Poor (25-49%) Estimated Nutritional Goals Calories/Kcals/Kg 25-30 Kcals Calculated [id number] Protein g/k Protein Calculated 52 Fluid: ml 1300-1560ml (1ml/kcal) Nutritional Problem 2. Problem Problem chewing difficulty Etiology weakness, sleepy Signs/Symptoms: pt need for mech soft diet 1. Problem Problem altered nutrition related lab values Etiology hyperglycemia Signs/Symptoms: Glucose 180, POC 127-261 Intervention/Recommendation Comments 1. Recommend Mech soft ground diet with Boost BID to increase nutrition intake. 2. Monitor PO intake, wt, labs and skin integrity 3. F/U as high risk in 2-3 days, 01/23-01/24 Expected Outcomes/Goals Expected Outcomes/Goals 1. PO intake to meet at least 75% of nutritional needs. 2. Wt stability, skin to remain intact, labs to approach WNL.
[2018-02-01] MEDS: Meropenem 1 GM in Sodium Chloride 0.9% 100 ML IV SCH ×2 (16:45→20:28)
[2018-02-01] MEDS: VORICONAZOLE 200 MG PO SCH (16:47)
[2018-02-01] MEDS: Vitamin A/Vitamin D 5 gm Packet TP SCH (17:04)
[2018-02-02] MEDS: Albuterol/Ipratropium Neb 3 ML AERS HHN SCH ×4 (00:49→18:44)
[2018-02-02] MEDS: metroNIDAZOLE 500mg/NS 100mL 500 MG/100 ML BAG IV SCH ×3 (04:42→23:01)
[2018-02-02 05:17] LABS: ANION GAP 11.2 (7.0-16.0); BUN - UREA NITROGEN 53 mg/dL (7-25); CALCIUM SERUM 8.5 mg/dL (8.6-10.3); CHLORIDE 105 mEq/L (98-107); CREATININE - SERUM 1.8 mg/dL (0.6-1.2); GLUCOSE 95 mg/dL (70-105); POTASSIUM SERUM 4.2 mEq/L (3.5-5.1); SODIUM SERUM 136 mEq/L (136-145)
[2018-02-02 05:21] LABS: % EOSINOPHILS 2.3 % (0.0-5.0); % LYMPHOCYTES 4.4 % (20.0-50.0); % MONOCYTES 4.7 % (2.0-10.0); % NEUTROPHILS 88.6 % (40.0-80.0); EOSINOPHILE ABSOLUTE 0.4 Th/cmm (0.1-0.4); HEMATOCRIT 33.8 % (41.0-60); HEMOGLOBIN 11.4 gm/dL (12-16); LYMPHOCYTE ABSOLUTE 0.7 Th/cmm (1.5-3.0); MEAN CELL VOLUME 89.4 fl (81-100); MEAN CORPUSCULAR HEMOGLOBIN 30.2 pg (27.0-31.0); MEAN CORPUSCULAR HGB CONC 33.8 pg (28.0-36.0); MEAN PLATELET VOLUME 8.6 fl; MONOCYTE ABSOLUTE 0.8 Th/cmm (0.3-1.0); NEUTROPHILE ABSOLUTE 14.4 Th/cmm (1.8-8.0); PLATELET COUNT 60 Th/cmm (150-400); RED BLOOD COUNT 3.77 Mil/cmm (3.80-5.20); RED CELL DISTRIBUTION WIDTH 15.5 % (11.5-20.0)
[2018-02-02 05:35] LABS: WHITE BLOOD COUNT 16.3 Th/cmm (4.8-10.8)
[2018-02-02] MEDS: Diltiazem 30 mg Tab PO SCH ×3 (06:06→18:10)
[2018-02-02] MEDS: INSULIN ASPART SLIDING SCALE 100 UNITS/ML UNIT SUBQ SCH ×3 (06:06→18:15)
[2018-02-02] MEDS: Budesonide 0.5 Mg/2 mL Ud HHN SCH ×2 (07:44→18:45)
[2018-02-02] MEDS: Meropenem 1 GM in Sodium Chloride 0.9% 100 ML IV SCH ×2 (08:40→21:52)
[2018-02-02] MEDS: Chlorhexidine Gluconate 0.12% 15mL Mouthwash MM SCH ×2 (08:49→20:03)
[2018-02-02] MEDS: Multivitamin Tab PO SCH (08:49)
[2018-02-02] MEDS: Pantoprazole 40 mg/Packet NG SCH (08:49)
[2018-02-02] MEDS: VORICONAZOLE 200 MG PO SCH ×2 (08:51→18:15)
[2018-02-02] MEDS: Vitamin A/Vitamin D 5 gm Packet TP SCH (09:00)
--- NOTE | 2018-02-02 10:47 | General Progress Note ---
Subjective - Review of Systems Events since last encounter: on vent no signs of pain Objective - Results Result Diagrams: 02/02/18 04:05 02/02/18 04:05 Recent Labs: Laboratory Last Values WBC 16.3 Th/cmm (4.8-10.8) H 02/02/18 04:05 RBC 3.77 Mil/cmm (3.80-5.20) L 02/02/18 04:05 Hgb 11.4 gm/dL (12-16) L 02/02/18 04:05 Hct 33.8 % (41.0-60) L 02/02/18 04:05 MCV 89.4 fl (81-100) 02/02/18 04:05 MCH 30.2 pg (27.0-31.0) 02/02/18 04:05 MCHC Differential 33.8 pg (28.0-36.0) 02/02/18 04:05 RDW 15.5 % (11.5-20.0) 02/02/18 04:05 Plt Count 60 Th/cmm (150-400) L 02/02/18 04:05 MPV 8.6 fl 02/02/18 04:05 Neutrophils % 88.6 % (40.0-80.0) H 02/02/18 04:05 Band Neutrophils % 5 % (0-10) 01/31/18 04:10 Lymphocytes % 4.4 % (20.0-50.0) L 02/02/18 04:05 Monocytes % 4.7 % (2.0-10.0) 02/02/18 04:05 Eosinophils % 2.3 % (0.0-5.0) 02/02/18 04:05 Basophils % 0.0 % (0.0-2.0) 02/02/18 04:05 Neutrophils (Manual) 83 % (40-80) H 01/31/18 04:10 Lymphocytes 8 % (20-50) L 01/31/18 04:10 Monocytes 4 % (2-10) 01/31/18 04:10 Eosinophils 0 % (0-5) 01/27/18 04:58 Basophils 0 % (0-3) 01/27/18 04:58 Platelet Estimate SLIGHT DECREASED (NORMAL) 01/31/18 04:10 Platelet Morphology NORMAL (NORMAL) 01/27/18 04:58 RBC Morph Micro Appear NORMAL (NORMAL) 01/27/18 04:58 Eos Smear Source URINE 01/28/18 17:10 Eos Smear Total Cells NONE SEEN (NONE SEEN) 01/28/18 17:10 PT 9.3 SECONDS (9.5-11.5) L 01/29/18 21:26 INR 0.90 (0.5-1.4) 01/29/18 21:26 PTT (Actin FS) 46.6 SECONDS (26.0-38.0) H 01/29/18 21:26 Specimen Source Arterial 01/24/18 17:45 Sample Site Left Radial 01/24/18 17:45 pH 7.41 (7.35-7.45) 01/24/18 17:45 pCO2 32.0 mmHg (35.0-45.0) L 01/24/18 17:45 pO2 397.0 mmHg (80.0-100.0) H 01/24/18 17:45 HCO3 22.3 mEq/L (20.0-26.0) 01/24/18 17:45 Base Excess -3.5 mEq/L (-3.0-3.0) L 01/24/18 17:45 O2 Saturation 100.0 % (92.0-100.0) 01/24/18 17:45 Bebo Test YES 01/24/18 17:45 Vent Rate 14 01/24/18 17:45 Inspired O2 100 01/24/18 17:45 Tidal Volume 450 01/24/18 17:45 PEEP 5 01/24/18 17:45 Pressure (ins/psv/peep) NA 01/24/18 17:45 Critical Value E.BRIDGES 01/24/18 17:45 Sodium 136 mEq/L (136-145) 02/02/18 04:05 Potassium 4.2 mEq/L (3.5-5.1) 02/02/18 04:05 Chloride 105 mEq/L (98-107) 02/02/18 04:05 Carbon Dioxide 24.0 mEq/L (21.0-31.0) 02/02/18 04:05 Anion Gap 11.2 (7.0-16.0) 02/02/18 04:05 BUN 53 mg/dL (7-25) H 02/02/18 04:05 Creatinine 1.8 mg/dL (0.6-1.2) H 02/02/18 04:05 Est GFR ( Amer) TNP 02/02/18 04:05 Est GFR (Non-Af Amer) TNP 02/02/18 04:05 BUN/Creatinine Ratio 29.4 02/02/18 04:05 Glucose 95 mg/dL (70-105) 02/02/18 04:05 POC Glucose 89 MG/DL (70 - 105) 02/01/18 23:34 Hemoglobin A1c % 5.1 % (4.0-6.0) 01/20/18 12:15 Plasma/Ser Osmolality 287 mOsmol/kg (280-301) 01/28/18 17:45 Whole Bld Lactic Acid 1.50 mmol/L (0.60-1.99) 01/28/18 13:40 Uric Acid 5.3 mg/dL (2.3-6.6) 01/30/18 05:06 Calcium 8.5 mg/dL (8.6-10.3) L 02/02/18 04:05 Phosphorus 3.3 mg/dL (2.5-5.0) 01/30/18 05:06 Magnesium 2.3 mg/dL (1.9-2.7) 01/30/18 05:06 Iron 54 ug/dL (27-139) 01/20/18 12:50 TIBC 159 ug/dL (250-450) L 01/20/18 12:50 Iron Saturation 34 % (15-55) 01/20/18 12:50 Unsaturated IBC 105 ug/dL (118-369) L 01/20/18 12:50 Ferritin 1230 ng/mL (15-150) H 01/20/18 12:50 Total Bilirubin 0.3 mg/dL (0.3-1.0) 01/29/18 05:10 Direct Bilirubin 0.07 mg/dL (0.0-0.2) 01/20/18 12:30 AST 54 U/L (13-39) H 01/29/18 05:10 ALT 93 U/L (7-52) H 01/29/18 05:10 Alkaline Phosphatase 105 U/L (34-104) H 01/29/18 05:10 Troponin I 0.03 ng/mL (0.01-0.05) 01/20/18 12:15 C-Reactive Protein 4.3 mg/dL (0.0-0.9) H 01/20/18 12:50 B-Natriuretic Peptide 185.0 pg/mL (5.0-100.0) H 01/25/18 04:20 Total Protein 3.7 gm/dL (6.0-8.3) L 01/29/18 05:10 Albumin 1.6 gm/dL (3.7-5.3) L 01/29/18 05:10 Globulin 2.1 gm/dL 01/29/18 05:10 Albumin/Globulin Ratio 0.8 (1.0-1.8) L 01/29/18 05:10 Triglycerides 97 mg/dL (<150) 01/20/18 12:15 Cholesterol 195 mg/dL (<200) 01/20/18 12:15 LDL Cholesterol Direct 152 mg/dL (75-193) 01/20/18 12:15 HDL Cholesterol 40 mg/dL (23-92) 01/20/18 12:15 Lipase 108 U/L (11-82) H 01/20/18 12:15 Free T4 1.12 ng/dL (0.82-1.77) 01/20/18 12:50 TSH 0.06 uIU/ml (0.34-5.60) L 01/20/18 12:15 Urine Source [place] 01/28/18 17:10 Urine Color YELLOW 01/28/18 17:10 Urine Clarity CLOUDY (CLEAR) H 01/28/18 17:10 Urine pH 6.0 (4.6 - 8.0) 01/28/18 17:10 Ur Specific [place] 1.020 (1.005-1.030) 01/28/18 17:10 Urine Protein 100 mg/dL (NEGATIVE) H 01/28/18 17:10 Urine Glucose (UA) NEGATIVE mg/dL (NEGATIVE) 01/28/18 17:10 Urine Ketones NEGATIVE mg/dL (NEGATIVE) 01/28/18 17:10 Urine Blood MODERATE (NEGATIVE) H 01/28/18 17:10 Urine Nitrate NEGATIVE (NEGATIVE) 01/28/18 17:10 Urine Bilirubin NEGATIVE (NEGATIVE) 01/28/18 17:10 Urine Urobilinogen 0.2 E.U./dL (0.2 - 1.0) 01/28/18 17:10 Ur Leukocyte Esterase MODERATE (NEGATIVE) H 01/28/18 17:10 Urine RBC 5-10 /hpf (0-5) H 01/28/18 17:10 Urine WBC 10-25 /hpf (0-5) H 01/28/18 17:10 Ur Epithelial Cells OCCASIONAL /lpf (FEW) 01/28/18 17:10 Urine Bacteria OCCASIONAL /hpf (NONE SEEN) 01/28/18 17:10 Urine Yeast MANY /hpf (NONE SEEN) H 01/28/18 17:10 Ur Random Sodium 56 mmol/L 01/28/18 17:10 Urine Creatinine 39.0 mg/dl (28.0-217.0) 01/28/18 17:10 Vancomycin Trough 27.8 ug/mL (10-20) H 01/26/18 23:00 Random Vancomycin 29.6 ug/mL (5.0-40.0) 02/01/18 04:10 Blood Type O POSITIVE 01/30/18 07:35 Antibody Screen NEGATIVE 01/30/18 07:35 Crossmatch See Detail 01/30/18 07:35 - Physical Exam Vitals and I&O: Vital Signs Temp 97 F 02/02/18 04:00 Pulse 65 02/02/18 09:40 Resp 18 02/02/18 06:00 BP 122/54 02/02/18 06:00 Pulse Ox 100 02/02/18 09:40 Intake & Output 02/01/18 02/02/18 02/02/18 18:59 06:59 18:59 Intake Total 960 Output Total 240 Balance 720 Weight (lbs) 56.971 kg Intake: Intake, IV Amount 500 Albumin 25% 25gm/100mL 25 200 gm In 100 ml @ 50 mls/hr IV Q8H [facility] Rx#:[id number] Meropenem 1 gm In Sodium 100 Chloride 0.9% 100 ml @ 100 mls/hr IV Q12H [facility] Rx #:[id number] metroNIDAZOLE 500mg/NS 200 100mL 500 mg In 100 ml @ 100 mls/hr IV Q8HR [facility] Rx #:[id number] Tube Feeding 360 Other 100 Output: Urine 240 Other: # Bowel Movements 1 Stool Characteristics Soft Liquid Formed Brown Weight Source Bedscale Active Medications: Current Medications Acetaminophen (Tylenol) 650 mg PO Q4H PRN PRN Reason: MILD PAIN OR TEMP >100.4 Stop: 03/21/18 16:07 Al Hydrox/Mg Hydrox/Simethicone (Maalox) 30 ml PO Q6HR PRN PRN Reason: GI DISTRESS Stop: 03/21/18 16:28 Albuterol/Ipratropium (Duoneb Neb) 3 ml HHN Q6HRT [facility] Stop: 03/30/18 00:59 Last Admin: 02/02/18 07:44 Dose: 3 ml Amlodipine Besylate (Norvasc) 10 mg PO DAILY [facility] Stop: 04/02/18 16:59 Last Admin: 02/01/18 19:59 Dose: 10 mg Artificial Tears (Artificial Tears Ophth Soln) 1 drop EACH EYE Q2HR PRN PRN Reason: Dry Eye Stop: 03/27/18 09:28 Last Admin: 01/26/18 10:13 Dose: 1 drop Atorvastatin Calcium (Lipitor) 80 mg PO HS [facility] PRN Reason: Protocol Stop: 03/21/18 20:59 Last Admin: 02/01/18 20:28 Dose: 80 mg Bisacodyl (Dulcolax 10 Mg Supp) 10 mg RC DAILY PRN PRN Reason: Constipation Stop: 03/21/18 16:07 Budesonide (Pulmicort) 0.5 mg HHN BIDRT [facility] Stop: 04/01/18 18:59 Last Admin: 02/02/18 07:44 Dose: 0.5 mg Carvedilol (Coreg) 12.5 mg PO BID [facility] Stop: 03/21/18 16:59 Last Admin: 02/01/18 16:40 Dose: 12.5 mg Chlorhexidine Gluconate (Peridex) 15 ml MM 0800,2000 [facility] Stop: 03/27/18 07:59 Last Admin: 02/02/18 08:49 Dose: 15 ml Dextrose (D50w) 50 ml IVP PRN PRN PRN Reason: HYPOGLYCEMIA Stop: 03/21/18 16:07 Diltiazem HCl (Cardizem) 60 mg PO Q6HR [facility] Stop: 03/21/18 17:59 Last Admin: 02/02/18 06:06 Dose: Not Given Enalaprilat (Vasotec) 2.5 mg IVP Q6HR PRN PRN Reason: SBP ABOVE 160 Stop: 03/25/18 11:59 Last Admin: 02/01/18 20:35 Dose: 2.5 mg Glucagon (Glucagen) 1 mg IVP PRN PRN PRN Reason: HYPOGLYCEMIA Stop: 03/21/18 16:25 Meropenem 1 gm/ Sodium (Chloride) 100 mls @ 100 mls/hr IV Q12H [facility] Stop: 03/26/18 08:59 Last Admin: 02/02/18 08:40 Dose: 100 mls/hr Phenylephrine HCl 10 mg/ (Sodium Chloride) 250 mls @ 75 mls/hr IV TITR [facility]; 50 MCG/MIN PRN Reason: Protocol Stop: 03/25/18 20:14 Norepinephrine Bitartrate 4 mg (/ Sodium Chloride) 254 mls @ 15.24 mls/hr IV TITR [facility]; 4 MCG/MIN PRN Reason: Protocol Stop: 03/26/18 08:14 Last Titration: 01/27/18 00:22 Dose: 0 mcg/min, 0 mls/hr Metronidazole (Flagyl) 500 mg in 100 mls @ 100 mls/hr IV Q8HR [facility] Stop: 03/31/18 20:59 Last Infusion: 02/02/18 05:42 Dose: Infused Insulin Aspart (Novolog Insulin Sliding Scale) 0 units SUBQ Q6HR [facility] PRN Reason: Protocol Stop: 03/27/18 00:00 Last Admin: 02/02/18 06:06 Dose: Not Given Losartan Potassium (Cozaar) 100 mg PO DAILY [facility] Stop: 04/02/18 16:59 Last Admin: 02/01/18 17:02 Dose: 100 mg Magnesium Hydroxide (Milk Of Magnesia) 30 ml PO DAILY PRN PRN Reason: IF NO BM IN TWO DAYS Stop: 03/21/18 16:07 Megestrol Acetate (Megace) 400 mg PO BID [facility] Stop: 03/21/18 16:59 Last Admin: 02/01/18 16:43 Dose: 400 mg Metoprolol Tartrate (Lopressor) 5 mg IV Q4H PRN PRN Reason: Tachycardia Stop: 03/25/18 12:29 Miscellaneous (Vancomycin Iv Per Pharmacy) 1 ea MC PRN PRN PRN Reason: PHARMACIST TO DOSE Stop: 04/02/18 08:25 Miscellaneous (Misc Oral Tab) 1 tab PO BID [facility] Stop: 02/08/18 09:01 Last Admin: 02/02/18 08:51 Dose: 1 tab Morphine Sulfate (Morphine) 1 mg IV Q4HR PRN PRN Reason: MOD TO SEVERE PAIN Stop: 04/02/18 15:59 Multivitamins/Vitamin C (Theragran) 1 tab PO DAILY [facility] Stop: 03/22/18 08:59 Last Admin: 02/02/18 08:49 Dose: 1 tab Ondansetron HCl (Zofran Odt) 4 mg PO Q6H PRN PRN Reason: Nausea / Vomiting Stop: 03/21/18 16:07 Pantoprazole Sodium (Protonix) 40 mg NG DAILY [facility] Stop: 03/28/18 16:59 Last Admin: 02/02/18 08:49 Dose: 40 mg Prednisone (Deltasone) 10 mg PO DAILY [facility] Stop: 03/22/18 08:59 Last Admin: 02/02/18 08:49 Dose: 10 mg Sodium Bicarbonate (Sodium Bicarbonate) 650 mg PO BID [facility] PRN Reason: Protocol Stop: 03/29/18 16:59 Last Admin: 02/02/18 08:49 Dose: 650 mg Sodium Phosphate (Fleet Enema) 135 ml RC DAILY PRN PRN Reason: Constipation Stop: 03/21/18 16:07 Vitamin A (Vitamin A & D) 5 gm TP DAILY [facility] Stop: 03/22/18 08:59 Last Admin: 02/01/18 17:04 Dose: 5 gm General: Moderate distress, Other (more awake) HEENT: Atraumatic, Other (facial edema) Neck: Supple, +2 carotid pulse wo bruit Cardiovascular: Regular rate, Normal S1, Normal S2 Lungs: Other (decreased BS, coarse rhonchi) Abdomen: Bowel sounds, Soft Extremities: Edema, Other (less edema) Neurological: Sensation intact Skin: no Rash Psych/Mental Status: Other (obtunded) - Procedures Procedures: Procedures Procedure Code Date INSERT EMERGENCY AIRWAY [id number] 01/20/18 INSERTION OF ENDOTRACHEAL AIRWAY INTO [place]HE[place], VIA OPENING [id number] 01/20/18 RESPIRATORY VENTILATION, GREATER THAN 96 CONSECUTIVE HOURS [id number] 01/20/18 VENT MGMT INPAT IN DAY 42089 01/20/18 Assessment/Plan - Problem List Patient Problems: All Active Problems ELEVATED WBC, LUNG INFILTRATES (Acute) Nutritional Asmnt/Malnutr-PDOC - Dietary Evaluation Malnutrition Findings (Please click <Entered> for more info): Nutritional Asmnt/Malnutrition Start: 01/21/18 16: 32 Text: Status: Complete Freq: Document 01/21/18 16:32 [place] (Rec: 01/21/18 16:48 AMITA [id number]) Nutritional Asmnt/Malnutrition Patient General Information Nutritional Screening High Risk Consult Diagnosis left lung infiltrate Pertinent Medical Hx/Surgical Hx dementia, HTN, hyperlipidemia per ER notes, no H&P at this time Subjective Information Pt seen sleeping at time of visit, not able to wake up for lunch. Per PATIENT SERVICES TECHNICIAN, pt only had cereal and scrambled eggs this morning, not able to chew the Syriac toast d/t weakness. Current Diet Order/ Nutrition Support low cholesterol 300gm Pertinent Medications D5-0.45ns, novolog, megace, theragran, piperacillin, vit A &D Pertinent Labs 01/21 BUN 32, Glucose 180, POC 142-261 01/20 A1c 5.1, POC 127-165 Nutritional Hx/Data Height 1.6 m Height (Calculated Centimeters) 160.0 Current Weight (lbs) 37.648 kg Weight (Calculated Kilograms) 37.6 Weight (Calculated Grams) 79243.2 [place] Body Weight 115 Body Mass Index (BMI) 14.7 Weight Status Underweight GI Symptoms GI Symptoms None Last BM none Difficult in: None Skin Integrity/Comment: reddened to vagina and coccyx Current %PO Poor (25-49%) Estimated Nutritional Goals Calories/Kcals/Kg 25-30 Kcals Calculated 2445-4721 Protein g/k Protein Calculated 52 Fluid: ml 1300-1560ml (1ml/kcal) Nutritional Problem 2. Problem Problem chewing difficulty Etiology weakness, sleepy Signs/Symptoms: pt need for mech soft diet 1. Problem Problem altered nutrition related lab values Etiology hyperglycemia Signs/Symptoms: Glucose 180, POC 127-261 Intervention/Recommendation Comments 1. Recommend Mech soft ground diet with Boost BID to increase nutrition intake. 2. Monitor PO intake, wt, labs and skin integrity 3. F/U as high risk in 2-3 days, 01/23-01/24 Expected Outcomes/Goals Expected Outcomes/Goals 1. PO intake to meet at least 75% of nutritional needs. 2. Wt stability, skin to remain intact, labs to approach WNL.
--- NOTE | 2018-02-02 15:55 | General Progress Note ---
Subjective - Review of Systems Service Date: 02/02/18 Subjective: less reponsive today, on vent Objective - Results Result Diagrams: 02/02/18 04:05 02/02/18 04:05 Recent Labs: Laboratory Last Values WBC 16.3 Th/cmm (4.8-10.8) H 02/02/18 04:05 RBC 3.77 Mil/cmm (3.80-5.20) L 02/02/18 04:05 Hgb 11.4 gm/dL (12-16) L 02/02/18 04:05 Hct 33.8 % (41.0-60) L 02/02/18 04:05 MCV 89.4 fl (81-100) 02/02/18 04:05 MCH 30.2 pg (27.0-31.0) 02/02/18 04:05 MCHC Differential 33.8 pg (28.0-36.0) 02/02/18 04:05 RDW 15.5 % (11.5-20.0) 02/02/18 04:05 Plt Count 60 Th/cmm (150-400) L 02/02/18 04:05 MPV 8.6 fl 02/02/18 04:05 Neutrophils % 88.6 % (40.0-80.0) H 02/02/18 04:05 Band Neutrophils % 5 % (0-10) 01/31/18 04:10 Lymphocytes % 4.4 % (20.0-50.0) L 02/02/18 04:05 Monocytes % 4.7 % (2.0-10.0) 02/02/18 04:05 Eosinophils % 2.3 % (0.0-5.0) 02/02/18 04:05 Basophils % 0.0 % (0.0-2.0) 02/02/18 04:05 Neutrophils (Manual) 83 % (40-80) H 01/31/18 04:10 Lymphocytes 8 % (20-50) L 01/31/18 04:10 Monocytes 4 % (2-10) 01/31/18 04:10 Eosinophils 0 % (0-5) 01/27/18 04:58 Basophils 0 % (0-3) 01/27/18 04:58 Platelet Estimate SLIGHT DECREASED (NORMAL) 01/31/18 04:10 Platelet Morphology NORMAL (NORMAL) 01/27/18 04:58 RBC Morph Micro Appear NORMAL (NORMAL) 01/27/18 04:58 Eos Smear Source URINE 01/28/18 17:10 Eos Smear Total Cells NONE SEEN (NONE SEEN) 01/28/18 17:10 PT 9.3 SECONDS (9.5-11.5) L 01/29/18 21:26 INR 0.90 (0.5-1.4) 01/29/18 21:26 PTT (Actin FS) 46.6 SECONDS (26.0-38.0) H 01/29/18 21:26 Specimen Source Arterial 01/24/18 17:45 Sample Site Left Radial 01/24/18 17:45 pH 7.41 (7.35-7.45) 01/24/18 17:45 pCO2 32.0 mmHg (35.0-45.0) L 01/24/18 17:45 pO2 397.0 mmHg (80.0-100.0) H 01/24/18 17:45 HCO3 22.3 mEq/L (20.0-26.0) 01/24/18 17:45 Base Excess -3.5 mEq/L (-3.0-3.0) L 01/24/18 17:45 O2 Saturation 100.0 % (92.0-100.0) 01/24/18 17:45 Bebo Test YES 01/24/18 17:45 Vent Rate 14 01/24/18 17:45 Inspired O2 100 01/24/18 17:45 Tidal Volume 450 01/24/18 17:45 PEEP 5 01/24/18 17:45 Pressure (ins/psv/peep) NA 01/24/18 17:45 Critical Value E.BRIDGES 01/24/18 17:45 Sodium 136 mEq/L (136-145) 02/02/18 04:05 Potassium 4.2 mEq/L (3.5-5.1) 02/02/18 04:05 Chloride 105 mEq/L (98-107) 02/02/18 04:05 Carbon Dioxide 24.0 mEq/L (21.0-31.0) 02/02/18 04:05 Anion Gap 11.2 (7.0-16.0) 02/02/18 04:05 BUN 53 mg/dL (7-25) H 02/02/18 04:05 Creatinine 1.8 mg/dL (0.6-1.2) H 02/02/18 04:05 Est GFR ( Amer) TNP 02/02/18 04:05 Est GFR (Non-Af Amer) TNP 02/02/18 04:05 BUN/Creatinine Ratio 29.4 02/02/18 04:05 Glucose 95 mg/dL (70-105) 02/02/18 04:05 POC Glucose 97 MG/DL (70 - 105) 02/02/18 12:35 Hemoglobin A1c % 5.1 % (4.0-6.0) 01/20/18 12:15 Plasma/Ser Osmolality 287 mOsmol/kg (280-301) 01/28/18 17:45 Whole Bld Lactic Acid 1.50 mmol/L (0.60-1.99) 01/28/18 13:40 Uric Acid 5.3 mg/dL (2.3-6.6) 01/30/18 05:06 Calcium 8.5 mg/dL (8.6-10.3) L 02/02/18 04:05 Phosphorus 3.3 mg/dL (2.5-5.0) 01/30/18 05:06 Magnesium 2.3 mg/dL (1.9-2.7) 01/30/18 05:06 Iron 54 ug/dL (27-139) 01/20/18 12:50 TIBC 159 ug/dL (250-450) L 01/20/18 12:50 Iron Saturation 34 % (15-55) 01/20/18 12:50 Unsaturated IBC 105 ug/dL (118-369) L 01/20/18 12:50 Ferritin 1230 ng/mL (15-150) H 01/20/18 12:50 Total Bilirubin 0.3 mg/dL (0.3-1.0) 01/29/18 05:10 Direct Bilirubin 0.07 mg/dL (0.0-0.2) 01/20/18 12:30 AST 54 U/L (13-39) H 01/29/18 05:10 ALT 93 U/L (7-52) H 01/29/18 05:10 Alkaline Phosphatase 105 U/L (34-104) H 01/29/18 05:10 Troponin I 0.03 ng/mL (0.01-0.05) 01/20/18 12:15 C-Reactive Protein 4.3 mg/dL (0.0-0.9) H 01/20/18 12:50 B-Natriuretic Peptide 185.0 pg/mL (5.0-100.0) H 01/25/18 04:20 Total Protein 3.7 gm/dL (6.0-8.3) L 01/29/18 05:10 Albumin 1.6 gm/dL (3.7-5.3) L 01/29/18 05:10 Globulin 2.1 gm/dL 01/29/18 05:10 Albumin/Globulin Ratio 0.8 (1.0-1.8) L 01/29/18 05:10 Triglycerides 97 mg/dL (<150) 01/20/18 12:15 Cholesterol 195 mg/dL (<200) 01/20/18 12:15 LDL Cholesterol Direct 152 mg/dL (75-193) 01/20/18 12:15 HDL Cholesterol 40 mg/dL (23-92) 01/20/18 12:15 Lipase 108 U/L (11-82) H 01/20/18 12:15 Free T4 1.12 ng/dL (0.82-1.77) 01/20/18 12:50 TSH 0.06 uIU/ml (0.34-5.60) L 01/20/18 12:15 Urine Source [place] 01/28/18 17:10 Urine Color YELLOW 01/28/18 17:10 Urine Clarity CLOUDY (CLEAR) H 01/28/18 17:10 Urine pH 6.0 (4.6 - 8.0) 01/28/18 17:10 Ur Specific [place] 1.020 (1.005-1.030) 01/28/18 17:10 Urine Protein 100 mg/dL (NEGATIVE) H 01/28/18 17:10 Urine Glucose (UA) NEGATIVE mg/dL (NEGATIVE) 01/28/18 17:10 Urine Ketones NEGATIVE mg/dL (NEGATIVE) 01/28/18 17:10 Urine Blood MODERATE (NEGATIVE) H 01/28/18 17:10 Urine Nitrate NEGATIVE (NEGATIVE) 01/28/18 17:10 Urine Bilirubin NEGATIVE (NEGATIVE) 01/28/18 17:10 Urine Urobilinogen 0.2 E.U./dL (0.2 - 1.0) 01/28/18 17:10 Ur Leukocyte Esterase MODERATE (NEGATIVE) H 01/28/18 17:10 Urine RBC 5-10 /hpf (0-5) H 01/28/18 17:10 Urine WBC 10-25 /hpf (0-5) H 01/28/18 17:10 Ur Epithelial Cells OCCASIONAL /lpf (FEW) 01/28/18 17:10 Urine Bacteria OCCASIONAL /hpf (NONE SEEN) 01/28/18 17:10 Urine Yeast MANY /hpf (NONE SEEN) H 01/28/18 17:10 Ur Random Sodium 56 mmol/L 01/28/18 17:10 Urine Creatinine 39.0 mg/dl (28.0-217.0) 01/28/18 17:10 Vancomycin Trough 27.8 ug/mL (10-20) H 01/26/18 23:00 Random Vancomycin 29.6 ug/mL (5.0-40.0) 02/01/18 04:10 Blood Type O POSITIVE 01/30/18 07:35 Antibody Screen NEGATIVE 01/30/18 07:35 Crossmatch See Detail 01/30/18 07:35 - Physical Exam Vitals and I&O: Vital Signs Temp 97.4 F 02/02/18 12:00 Pulse 69 02/02/18 14:00 Resp 17 02/02/18 14:00 BP 105/59 02/02/18 14:00 Pulse Ox 100 02/02/18 14:00 Intake & Output 02/01/18 02/02/18 02/02/18 18:59 06:59 18:59 Intake Total 960 100 Output Total 240 Balance 720 100 Weight (lbs) 56.971 kg Intake: Intake, IV Amount 500 100 Albumin 25% 25gm/100mL 25 200 gm In 100 ml @ 50 mls/hr IV Q8H [facility] Rx#:[id number] Meropenem 1 gm In Sodium 100 100 Chloride 0.9% 100 ml @ 100 mls/hr IV Q12H [facility] Rx #:[id number] metroNIDAZOLE 500mg/NS 200 100mL 500 mg In 100 ml @ 100 mls/hr IV Q8HR [facility] Rx #:[id number] Tube Feeding 360 Other 100 Output: Urine 240 Other: # Bowel Movements 1 Stool Characteristics Soft Liquid Formed Brown Weight Source Bedscale Active Medications: Current Medications Acetaminophen (Tylenol) 650 mg PO Q4H PRN PRN Reason: MILD PAIN OR TEMP >100.4 Stop: 03/21/18 16:07 Al Hydrox/Mg Hydrox/Simethicone (Maalox) 30 ml PO Q6HR PRN PRN Reason: GI DISTRESS Stop: 03/21/18 16:28 Albuterol/Ipratropium (Duoneb Neb) 3 ml HHN Q6HRT [facility] Stop: 03/30/18 00:59 Last Admin: 02/02/18 13:48 Dose: 3 ml Amlodipine Besylate (Norvasc) 10 mg PO DAILY [facility] Stop: 04/02/18 16:59 Last Admin: 02/01/18 19:59 Dose: 10 mg Artificial Tears (Artificial Tears Ophth Soln) 1 drop EACH EYE Q2HR PRN PRN Reason: Dry Eye Stop: 03/27/18 09:28 Last Admin: 01/26/18 10:13 Dose: 1 drop Atorvastatin Calcium (Lipitor) 80 mg PO HS [facility] PRN Reason: Protocol Stop: 03/21/18 20:59 Last Admin: 02/01/18 20:28 Dose: 80 mg Bisacodyl (Dulcolax 10 Mg Supp) 10 mg RC DAILY PRN PRN Reason: Constipation Stop: 03/21/18 16:07 Budesonide (Pulmicort) 0.5 mg HHN BIDRT [facility] Stop: 04/01/18 18:59 Last Admin: 02/02/18 07:44 Dose: 0.5 mg Carvedilol (Coreg) 12.5 mg PO BID [facility] Stop: 03/21/18 16:59 Last Admin: 02/01/18 16:40 Dose: 12.5 mg Chlorhexidine Gluconate (Peridex) 15 ml MM 0800,2000 [facility] Stop: 03/27/18 07:59 Last Admin: 02/02/18 08:49 Dose: 15 ml Dextrose (D50w) 50 ml IVP PRN PRN PRN Reason: HYPOGLYCEMIA Stop: 03/21/18 16:07 Diltiazem HCl (Cardizem) 60 mg PO Q6HR [facility] Stop: 03/21/18 17:59 Last Admin: 02/02/18 06:06 Dose: Not Given Enalaprilat (Vasotec) 2.5 mg IVP Q6HR PRN PRN Reason: SBP ABOVE 160 Stop: 03/25/18 11:59 Last Admin: 02/01/18 20:35 Dose: 2.5 mg Glucagon (Glucagen) 1 mg IVP PRN PRN PRN Reason: HYPOGLYCEMIA Stop: 03/21/18 16:25 Meropenem 1 gm/ Sodium (Chloride) 100 mls @ 100 mls/hr IV Q12H [facility] Stop: 03/26/18 08:59 Last Infusion: 02/02/18 14:13 Dose: Infused Phenylephrine HCl 10 mg/ (Sodium Chloride) 250 mls @ 75 mls/hr IV TITR [facility]; 50 MCG/MIN PRN Reason: Protocol Stop: 03/25/18 20:14 Norepinephrine Bitartrate 4 mg (/ Sodium Chloride) 254 mls @ 15.24 mls/hr IV TITR [facility]; 4 MCG/MIN PRN Reason: Protocol Stop: 03/26/18 08:14 Last Titration: 01/27/18 00:22 Dose: 0 mcg/min, 0 mls/hr Metronidazole (Flagyl) 500 mg in 100 mls @ 100 mls/hr IV Q8HR [facility] Stop: 03/31/18 20:59 Last Admin: 02/02/18 14:10 Dose: 100 mls/hr Insulin Aspart (Novolog Insulin Sliding Scale) 0 units SUBQ Q6HR [facility] PRN Reason: Protocol Stop: 03/27/18 00:00 Last Admin: 02/02/18 06:06 Dose: Not Given Losartan Potassium (Cozaar) 100 mg PO DAILY [facility] Stop: 04/02/18 16:59 Last Admin: 02/01/18 17:02 Dose: 100 mg Magnesium Hydroxide (Milk Of Magnesia) 30 ml PO DAILY PRN PRN Reason: IF NO BM IN TWO DAYS Stop: 03/21/18 16:07 Megestrol Acetate (Megace) 400 mg PO BID [facility] Stop: 03/21/18 16:59 Last Admin: 02/01/18 16:43 Dose: 400 mg Metoprolol Tartrate (Lopressor) 5 mg IV Q4H PRN PRN Reason: Tachycardia Stop: 03/25/18 12:29 Miscellaneous (Vancomycin Iv Per Pharmacy) 1 ea MC PRN PRN PRN Reason: PHARMACIST TO DOSE Stop: 04/02/18 08:25 Miscellaneous (Misc Oral Tab) 1 tab PO BID [facility] Stop: 02/08/18 09:01 Last Admin: 02/02/18 08:51 Dose: 1 tab Morphine Sulfate (Morphine) 1 mg IV Q4HR PRN PRN Reason: MOD TO SEVERE PAIN Stop: 04/02/18 15:59 Multivitamins/Vitamin C (Theragran) 1 tab PO DAILY [facility] Stop: 03/22/18 08:59 Last Admin: 02/02/18 08:49 Dose: 1 tab Ondansetron HCl (Zofran Odt) 4 mg PO Q6H PRN PRN Reason: Nausea / Vomiting Stop: 03/21/18 16:07 Pantoprazole Sodium (Protonix) 40 mg NG DAILY [facility] Stop: 03/28/18 16:59 Last Admin: 02/02/18 08:49 Dose: 40 mg Prednisone (Deltasone) 10 mg PO DAILY [facility] Stop: 03/22/18 08:59 Last Admin: 02/02/18 08:49 Dose: 10 mg Sodium Bicarbonate (Sodium Bicarbonate) 650 mg PO BID [facility] PRN Reason: Protocol Stop: 03/29/18 16:59 Last Admin: 02/02/18 08:49 Dose: 650 mg Sodium Phosphate (Fleet Enema) 135 ml RC DAILY PRN PRN Reason: Constipation Stop: 03/21/18 16:07 Vitamin A (Vitamin A & D) 5 gm TP DAILY [facility] Stop: 03/22/18 08:59 Last Admin: 02/01/18 17:04 Dose: 5 gm General: Moderate distress, Other (more awake) HEENT: Atraumatic, Mucous membr. moist/pink, Other (facial edema) Neck: Supple, +2 carotid pulse wo bruit Cardiovascular: Regular rate, Normal S1, Normal S2 Lungs: Other (decreased BS, coarse rhonchi) Abdomen: Bowel sounds, Soft Extremities: Edema, Other (less edema) Neurological: Sensation intact Skin: no Rash Psych/Mental Status: Other (obtunded) - Procedures Procedures: Procedures Procedure Code Date INSERT EMERGENCY AIRWAY 40041 01/20/18 INSERTION OF ENDOTRACHEAL AIRWAY INTO [place], VIA OPENING [id number] 01/20/18 RESPIRATORY VENTILATION, GREATER THAN 96 CONSECUTIVE HOURS [id number] 01/20/18 VENT MGMT INPAT INIT DAY [id number] 01/20/18 Assessment/Plan - Problem List Patient Problems: All Active Problems ELEVATED WBC, LUNG INFILTRATES (Acute) - Assessment Assessment: LAURENCE Anuric 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 A. Fib Anemia of CD non Gap met acid yeast UTI - Plan Plan: Lab - Result Diagrams 01/29/18 05:10 01/29/18 05:10 Current Medications Acetaminophen (Tylenol) 650 mg PO Q4H PRN PRN Reason: MILD PAIN OR TEMP >100.4 Stop: 03/21/18 16:07 Al Hydrox/Mg Hydrox/Simethicone (Maalox) 30 ml PO Q6HR PRN PRN Reason: GI DISTRESS Stop: 03/21/18 16:28 Albuterol/Ipratropium (Duoneb Neb) 3 ml HHN Q6HRT [facility] Stop: 03/30/18 00:59 Last Admin: 01/29/18 13:21 Dose: 3 ml Artificial Tears (Artificial Tears Ophth Soln) 1 drop EACH EYE Q2HR PRN PRN Reason: Dry Eye Stop: 03/27/18 09:28 Last Admin: 01/26/18 10:13 Dose: 1 drop Atorvastatin Calcium (Lipitor) 80 mg PO HS [facility] PRN Reason: Protocol Stop: 03/21/18 20:59 Last Admin: 01/28/18 20:32 Dose: 80 mg Bisacodyl (Dulcolax 10 Mg Supp) 10 mg RC DAILY PRN PRN Reason: Constipation Stop: 03/21/18 16:07 Carvedilol (Coreg) 12.5 mg PO BID [facility] Stop: 03/21/18 16:59 Last Admin: 01/29/18 08:10 Dose: 12.5 mg Chlorhexidine Gluconate (Peridex) 15 ml MM 0800,2000 [facility] Stop: 03/27/18 07:59 Last Admin: 01/29/18 08:00 Dose: 15 ml Dextrose (D50w) 50 ml IVP PRN PRN PRN Reason: HYPOGLYCEMIA Stop: 03/21/18 16:07 Diltiazem HCl (Cardizem) 60 mg PO Q6HR [facility] Stop: 03/21/18 17:59 Last Admin: 01/29/18 12:10 Dose: 60 mg Enalaprilat (Vasotec) 2.5 mg IVP Q6HR PRN PRN Reason: SBP ABOVE 160 Stop: 03/25/18 11:59 Last Admin: 01/24/18 15:13 Dose: 2.5 mg Glucagon (Glucagen) 1 mg IVP PRN PRN PRN Reason: HYPOGLYCEMIA Stop: 03/21/18 16:25 Meropenem 1 gm/ Sodium (Chloride) 100 mls @ 100 mls/hr IV Q12H [facility] Stop: 03/26/18 08:59 Last Infusion: 01/29/18 10:30 Dose: Infused Phenylephrine HCl 10 mg/ (Sodium Chloride) 250 mls @ 75 mls/hr IV TITR [facility]; 50 MCG/MIN PRN Reason: Protocol Stop: 03/25/18 20:14 Norepinephrine Bitartrate 4 mg (/ Sodium Chloride) 254 mls @ 15.24 mls/hr IV TITR [facility]; 4 MCG/MIN PRN Reason: Protocol Stop: 03/26/18 08:14 Last Titration: 01/27/18 00:22 Dose: 0 mcg/min, 0 mls/hr Potassium Chloride/Dextrose/Sod Cl (D5-0.9ns W/Kcl 20meq) 1,000 mls @ 75 mls/ hr IV .[id number] [facility] Stop: 03/28/18 14:06 Last Admin: 01/29/18 12:54 Dose: 125 mls/hr Insulin Aspart (Novolog Insulin Sliding Scale) 0 units SUBQ Q6HR [facility] PRN Reason: Protocol Stop: 03/27/18 00:00 Last Admin: 01/29/18 12:09 Dose: 2 units Magnesium Hydroxide (Milk Of Magnesia) 30 ml PO DAILY PRN PRN Reason: IF NO BM IN TWO DAYS Stop: 03/21/18 16:07 Megestrol Acetate (Megace) 400 mg PO BID [facility] Stop: 03/21/18 16:59 Last Admin: 01/29/18 08:10 Dose: 400 mg Metoprolol Tartrate (Lopressor) 5 mg IV Q4H PRN PRN Reason: Tachycardia Stop: 03/25/18 12:29 Miscellaneous (Vancomycin Iv Per Pharmacy) 1 ea MC PRN [facility] Stop: 03/25/18 17:59 Multivitamins/Vitamin C (Theragran) 1 tab PO DAILY [facility] Stop: 03/22/18 08:59 Last Admin: 01/29/18 08:10 Dose: 1 tab Ondansetron HCl (Zofran Odt) 4 mg PO Q6H PRN PRN Reason: Nausea / Vomiting Stop: 03/21/18 16:07 Pantoprazole Sodium (Protonix) 40 mg NG DAILY [facility] Stop: 03/28/18 16:59 Last Admin: 01/29/18 08:10 Dose: 40 mg Prednisone (Deltasone) 10 mg PO DAILY [facility] Stop: 03/22/18 08:59 Last Admin: 01/29/18 08:10 Dose: 10 mg Sodium Bicarbonate (Sodium Bicarbonate) 650 mg PO BID [facility] PRN Reason: Protocol Stop: 03/29/18 16:59 Last Admin: 01/29/18 08:10 Dose: 650 mg Sodium Phosphate (Fleet Enema) 135 ml RC DAILY PRN PRN Reason: Constipation Stop: 03/21/18 16:07 Vitamin A (Vitamin A & D) 5 gm TP DAILY [facility] Stop: 03/22/18 08:59 Last Admin: 01/29/18 12:14 Dose: 5 gm Lab - Result Diagrams 02/02/18 04:05 02/02/18 04:05 kidney fnc slight improvement facial/peripheral edema decrease IVF & DC K replace Ca, P04, Mg start Diflucan on top of Meropenem new [place] Maria placed today WBC up to 16.3 administer [id number] initiated on HD due to anuria, fluid retention, acidosis, hyperkalemia Hgb/Hct improved to 11.4/33.8 CXR still w/ b/l small effusion remains anuric Nutritional Asmnt/Malnutr-PDOC - Dietary Evaluation Malnutrition Findings (Please click <Entered> for more info): Nutritional Asmnt/Malnutrition Start: 01/21/18 16: 32 Text: Status: Complete Freq: Document 01/21/18 16:32 [place] (Rec: 01/21/18 16:48 [email or web address] [id number]) Nutritional Asmnt/Malnutrition Patient General Information Nutritional Screening High Risk Consult Diagnosis left lung infiltrate Pertinent Medical Hx/Surgical Hx dementia, HTN, hyperlipidemia per ER notes, no H&P at this time Subjective Information Pt seen sleeping at time of visit, not able to wake up for lunch. Per [facility], pt only had cereal and scrambled eggs this morning, not able to chew the Romansh toast d/t weakness. Current Diet Order/ Nutrition Support low cholesterol 300gm Pertinent Medications D5-0.45ns, novolog, megace, theragran, piperacillin, vit A &D Pertinent Labs 01/21 BUN 32, Glucose 180, POC 142-261 01/20 A1c 5.1, POC 127-165 Nutritional Hx/Data Height 1.6 m Height (Calculated Centimeters) 160.0 Current Weight (lbs) 37.648 kg Weight (Calculated Kilograms) 37.6 Weight (Calculated Grams) 27782.2 [place] Body Weight 115 Body Mass Index (BMI) 14.7 Weight Status Underweight GI Symptoms GI Symptoms None Last BM none Difficult in: None Skin Integrity/Comment: reddened to vagina and coccyx Current %PO Poor (25-49%) Estimated Nutritional Goals Calories/Kcals/Kg 25-30 Kcals Calculated 2110-5469 Protein g/k Protein Calculated 52 Fluid: ml 1300-1560ml (1ml/kcal) Nutritional Problem 2. Problem Problem chewing difficulty Etiology weakness, sleepy Signs/Symptoms: pt need for mech soft diet 1. Problem Problem altered nutrition related lab values Etiology hyperglycemia Signs/Symptoms: Glucose 180, POC 127-261 Intervention/Recommendation Comments 1. Recommend Mech soft ground diet with Boost BID to increase nutrition intake. 2. Monitor PO intake, wt, labs and skin integrity 3. F/U as high risk in 2-3 days, 01/23-01/24 Expected Outcomes/Goals Expected Outcomes/Goals 1. PO intake to meet at least 75% of nutritional needs. 2. Wt stability, skin to remain intact, labs to approach WNL.
[2018-02-02] MEDS ORDERED: Norepinephrine 4 mg/4mL Vial IV ONE (18:48)
[2018-02-02] MEDS ORDERED: Albumin 25% 25gm/100mL 25 GM/100 ML BTL IV ONE ×2 (18:51→18:52)
[2018-02-02] MEDS ORDERED: Albumin 25% 25gm/100mL 50 GM/200 ML BTL IV ONE (18:53)
--- NOTE | 2018-02-02 23:55 | Infectious Disease Prog Note ---
Infectious Disease Subjective - Review of Systems Service Date: 02/02/18 Subjective: No fever, remains intubated orally. on the ventilator support. Infectious Disease Objective - Results Result Diagrams: 02/03/18 04:20 02/03/18 04:20 Recent Labs: Laboratory Last Values WBC 16.3 Th/cmm (4.8-10.8) H 02/02/18 04:05 RBC 3.77 Mil/cmm (3.80-5.20) L 02/02/18 04:05 Hgb 11.4 gm/dL (12-16) L 02/02/18 04:05 Hct 33.8 % (41.0-60) L 02/02/18 04:05 MCV 89.4 fl (81-100) 02/02/18 04:05 MCH 30.2 pg (27.0-31.0) 02/02/18 04:05 MCHC Differential 33.8 pg (28.0-36.0) 02/02/18 04:05 RDW 15.5 % (11.5-20.0) 02/02/18 04:05 Plt Count 60 Th/cmm (150-400) L 02/02/18 04:05 MPV 8.6 fl 02/02/18 04:05 Neutrophils % 88.6 % (40.0-80.0) H 02/02/18 04:05 Band Neutrophils % 5 % (0-10) 01/31/18 04:10 Lymphocytes % 4.4 % (20.0-50.0) L 02/02/18 04:05 Monocytes % 4.7 % (2.0-10.0) 02/02/18 04:05 Eosinophils % 2.3 % (0.0-5.0) 02/02/18 04:05 Basophils % 0.0 % (0.0-2.0) 02/02/18 04:05 Neutrophils (Manual) 83 % (40-80) H 01/31/18 04:10 Lymphocytes 8 % (20-50) L 01/31/18 04:10 Monocytes 4 % (2-10) 01/31/18 04:10 Eosinophils 0 % (0-5) 01/27/18 04:58 Basophils 0 % (0-3) 01/27/18 04:58 Platelet Estimate SLIGHT DECREASED (NORMAL) 01/31/18 04:10 Platelet Morphology NORMAL (NORMAL) 01/27/18 04:58 RBC Morph Micro Appear NORMAL (NORMAL) 01/27/18 04:58 Eos Smear Source URINE 01/28/18 17:10 Eos Smear Total Cells NONE SEEN (NONE SEEN) 01/28/18 17:10 PT 9.3 SECONDS (9.5-11.5) L 01/29/18 21:26 INR 0.90 (0.5-1.4) 01/29/18 21:26 PTT (Actin FS) 46.6 SECONDS (26.0-38.0) H 01/29/18 21:26 Specimen Source Arterial 01/24/18 17:45 Sample Site Left Radial 01/24/18 17:45 pH 7.41 (7.35-7.45) 01/24/18 17:45 pCO2 32.0 mmHg (35.0-45.0) L 01/24/18 17:45 pO2 397.0 mmHg (80.0-100.0) H 01/24/18 17:45 HCO3 22.3 mEq/L (20.0-26.0) 01/24/18 17:45 Base Excess -3.5 mEq/L (-3.0-3.0) L 01/24/18 17:45 O2 Saturation 100.0 % (92.0-100.0) 01/24/18 17:45 Bebo Test YES 01/24/18 17:45 Vent Rate 14 01/24/18 17:45 Inspired O2 100 01/24/18 17:45 Tidal Volume 450 01/24/18 17:45 PEEP 5 01/24/18 17:45 Pressure (ins/psv/peep) NA 01/24/18 17:45 Critical Value E.BRIDGES 01/24/18 17:45 Sodium 136 mEq/L (136-145) 02/02/18 04:05 Potassium 4.2 mEq/L (3.5-5.1) 02/02/18 04:05 Chloride 105 mEq/L (98-107) 02/02/18 04:05 Carbon Dioxide 24.0 mEq/L (21.0-31.0) 02/02/18 04:05 Anion Gap 11.2 (7.0-16.0) 02/02/18 04:05 BUN 53 mg/dL (7-25) H 02/02/18 04:05 Creatinine 1.8 mg/dL (0.6-1.2) H 02/02/18 04:05 Est GFR ( Amer) TNP 02/02/18 04:05 Est GFR (Non-Af Amer) TNP 02/02/18 04:05 BUN/Creatinine Ratio 29.4 02/02/18 04:05 Glucose 95 mg/dL (70-105) 02/02/18 04:05 POC Glucose 104 MG/DL (70 - 105) 02/02/18 17:31 Hemoglobin A1c % 5.1 % (4.0-6.0) 01/20/18 12:15 Plasma/Ser Osmolality 287 mOsmol/kg (280-301) 01/28/18 17:45 Whole Bld Lactic Acid 1.50 mmol/L (0.60-1.99) 01/28/18 13:40 Uric Acid 5.3 mg/dL (2.3-6.6) 01/30/18 05:06 Calcium 8.5 mg/dL (8.6-10.3) L 02/02/18 04:05 Phosphorus 3.3 mg/dL (2.5-5.0) 01/30/18 05:06 Magnesium 2.3 mg/dL (1.9-2.7) 01/30/18 05:06 Iron 54 ug/dL (27-139) 01/20/18 12:50 TIBC 159 ug/dL (250-450) L 01/20/18 12:50 Iron Saturation 34 % (15-55) 01/20/18 12:50 Unsaturated IBC 105 ug/dL (118-369) L 01/20/18 12:50 Ferritin 1230 ng/mL (15-150) H 01/20/18 12:50 Total Bilirubin 0.3 mg/dL (0.3-1.0) 01/29/18 05:10 Direct Bilirubin 0.07 mg/dL (0.0-0.2) 01/20/18 12:30 AST 54 U/L (13-39) H 01/29/18 05:10 ALT 93 U/L (7-52) H 01/29/18 05:10 Alkaline Phosphatase 105 U/L (34-104) H 01/29/18 05:10 Troponin I 0.03 ng/mL (0.01-0.05) 01/20/18 12:15 C-Reactive Protein 4.3 mg/dL (0.0-0.9) H 01/20/18 12:50 B-Natriuretic Peptide 185.0 pg/mL (5.0-100.0) H 01/25/18 04:20 Total Protein 3.7 gm/dL (6.0-8.3) L 01/29/18 05:10 Albumin 1.6 gm/dL (3.7-5.3) L 01/29/18 05:10 Globulin 2.1 gm/dL 01/29/18 05:10 Albumin/Globulin Ratio 0.8 (1.0-1.8) L 01/29/18 05:10 Triglycerides 97 mg/dL (<150) 01/20/18 12:15 Cholesterol 195 mg/dL (<200) 01/20/18 12:15 LDL Cholesterol Direct 152 mg/dL (75-193) 01/20/18 12:15 HDL Cholesterol 40 mg/dL (23-92) 01/20/18 12:15 Lipase 108 U/L (11-82) H 01/20/18 12:15 Free T4 1.12 ng/dL (0.82-1.77) 01/20/18 12:50 TSH 0.06 uIU/ml (0.34-5.60) L 01/20/18 12:15 Urine Source ZAPIEN PORT 01/28/18 17:10 Urine Color YELLOW 01/28/18 17:10 Urine Clarity CLOUDY (CLEAR) H 01/28/18 17:10 Urine pH 6.0 (4.6 - 8.0) 01/28/18 17:10 Ur Specific Taylor 1.020 (1.005-1.030) 01/28/18 17:10 Urine Protein 100 mg/dL (NEGATIVE) H 01/28/18 17:10 Urine Glucose (UA) NEGATIVE mg/dL (NEGATIVE) 01/28/18 17:10 Urine Ketones NEGATIVE mg/dL (NEGATIVE) 01/28/18 17:10 Urine Blood MODERATE (NEGATIVE) H 01/28/18 17:10 Urine Nitrate NEGATIVE (NEGATIVE) 01/28/18 17:10 Urine Bilirubin NEGATIVE (NEGATIVE) 01/28/18 17:10 Urine Urobilinogen 0.2 E.U./dL (0.2 - 1.0) 01/28/18 17:10 Ur Leukocyte Esterase MODERATE (NEGATIVE) H 01/28/18 17:10 Urine RBC 5-10 /hpf (0-5) H 01/28/18 17:10 Urine WBC 10-25 /hpf (0-5) H 01/28/18 17:10 Ur Epithelial Cells OCCASIONAL /lpf (FEW) 01/28/18 17:10 Urine Bacteria OCCASIONAL /hpf (NONE SEEN) 01/28/18 17:10 Urine Yeast MANY /hpf (NONE SEEN) H 01/28/18 17:10 Ur Random Sodium 56 mmol/L 01/28/18 17:10 Urine Creatinine 39.0 mg/dl (28.0-217.0) 01/28/18 17:10 Vancomycin Trough 27.8 ug/mL (10-20) H 01/26/18 23:00 Random Vancomycin 29.6 ug/mL (5.0-40.0) 02/01/18 04:10 Blood Type O POSITIVE 01/30/18 07:35 Antibody Screen NEGATIVE 01/30/18 07:35 Crossmatch See Detail 01/30/18 07:35 - Physical Exam Vitals and I&O: Vital Signs Temp 98.3 F 02/02/18 20:00 Pulse 101 02/02/18 22:00 Resp 18 02/02/18 22:00 BP 146/76 02/02/18 22:00 Pulse Ox 100 02/02/18 22:00 Intake & Output 02/02/18 02/02/18 02/03/18 06:59 18:59 06:59 Intake Total 960 450 162.865 Output Total 240 100 Balance 720 350 162.865 Weight (lbs) 56.971 kg 56.971 kg Intake: Intake, IV Amount 500 200 162.865 Albumin 25% 25gm/100mL 25 200 gm In 100 ml @ 50 mls/hr IV Q8H [facility] Rx#:[id number] Meropenem 1 gm In Sodium 100 100 100 Chloride 0.9% 100 ml @ 100 mls/hr IV Q12H [facility] Rx #:[id number] Norepinephrine 4 mg In 0 62.865 Sodium Chloride 0.9% 250 ml @ 4 MCG/MIN 15.24 mls/ hr IV TITR [facility] Rx#: [id number] metroNIDAZOLE 500mg/NS 200 100 100mL 500 mg In 100 ml @ 100 mls/hr IV Q8HR [facility] Rx #:[id number] Tube Feeding 360 150 Other 100 100 Output: Urine 240 100 Other: # Bowel Movements 1 1 Stool Characteristics Liquid Brown Weight Source Bedscale Bedscale Active Medications: Current Medications Acetaminophen (Tylenol) 650 mg PO Q4H PRN PRN Reason: MILD PAIN OR TEMP >100.4 Stop: 03/21/18 16:07 Al Hydrox/Mg Hydrox/Simethicone (Maalox) 30 ml PO Q6HR PRN PRN Reason: GI DISTRESS Stop: 03/21/18 16:28 Albuterol/Ipratropium (Duoneb Neb) 3 ml HHN Q6HRT [facility] Stop: 03/30/18 00:59 Last Admin: 02/02/18 18:44 Dose: 3 ml Amlodipine Besylate (Norvasc) 10 mg PO DAILY [facility] Stop: 04/02/18 16:59 Last Admin: 02/02/18 16:00 Dose: Not Given Artificial Tears (Artificial Tears Ophth Soln) 1 drop EACH EYE Q2HR PRN PRN Reason: Dry Eye Stop: 03/27/18 09:28 Last Admin: 01/26/18 10:13 Dose: 1 drop Atorvastatin Calcium (Lipitor) 80 mg PO HS [facility] PRN Reason: Protocol Stop: 03/21/18 20:59 Last Admin: 02/02/18 21:57 Dose: 80 mg Bisacodyl (Dulcolax 10 Mg Supp) 10 mg RC DAILY PRN PRN Reason: Constipation Stop: 03/21/18 16:07 Budesonide (Pulmicort) 0.5 mg HHN BIDRT [facility] Stop: 04/01/18 18:59 Last Admin: 02/02/18 18:45 Dose: 0.5 mg Carvedilol (Coreg) 12.5 mg PO BID [facility] Stop: 03/21/18 16:59 Last Admin: 02/02/18 18:09 Dose: Not Given Chlorhexidine Gluconate (Peridex) 15 ml MM 0800,2000 [facility] Stop: 03/27/18 07:59 Last Admin: 02/02/18 20:03 Dose: 15 ml Dextrose (D50w) 50 ml IVP PRN PRN PRN Reason: HYPOGLYCEMIA Stop: 03/21/18 16:07 Diltiazem HCl (Cardizem) 60 mg PO Q6HR [facility] Stop: 03/21/18 17:59 Last Admin: 02/02/18 18:10 Dose: Not Given Enalaprilat (Vasotec) 2.5 mg IVP Q6HR PRN PRN Reason: SBP ABOVE 160 Stop: 03/25/18 11:59 Last Admin: 02/01/18 20:35 Dose: 2.5 mg Glucagon (Glucagen) 1 mg IVP PRN PRN PRN Reason: HYPOGLYCEMIA Stop: 03/21/18 16:25 Meropenem 1 gm/ Sodium (Chloride) 100 mls @ 100 mls/hr IV Q12H [facility] Stop: 03/26/18 08:59 Last Infusion: 02/02/18 22:52 Dose: Infused Phenylephrine HCl 10 mg/ (Sodium Chloride) 250 mls @ 75 mls/hr IV TITR [facility]; 50 MCG/MIN PRN Reason: Protocol Stop: 03/25/18 20:14 Norepinephrine Bitartrate 4 mg (/ Sodium Chloride) 254 mls @ 15.24 mls/hr IV TITR [facility]; 4 MCG/MIN PRN Reason: Protocol Stop: 03/26/18 08:14 Last Titration: 02/02/18 22:00 Dose: 0 mcg/min, 0 mls/hr Metronidazole (Flagyl) 500 mg in 100 mls @ 100 mls/hr IV Q8HR [facility] Stop: 03/31/18 20:59 Last Admin: 02/02/18 23:01 Dose: 100 mls/hr Insulin Aspart (Novolog Insulin Sliding Scale) 0 units SUBQ Q6HR [facility] PRN Reason: Protocol Stop: 03/27/18 00:00 Last Admin: 02/02/18 18:15 Dose: Not Given Losartan Potassium (Cozaar) 100 mg PO DAILY [facility] Stop: 04/02/18 16:59 Last Admin: 02/02/18 16:01 Dose: Not Given Magnesium Hydroxide (Milk Of Magnesia) 30 ml PO DAILY PRN PRN Reason: IF NO BM IN TWO DAYS Stop: 03/21/18 16:07 Megestrol Acetate (Megace) 400 mg PO BID [facility] Stop: 03/21/18 16:59 Last Admin: 02/02/18 18:15 Dose: 400 mg Metoprolol Tartrate (Lopressor) 5 mg IV Q4H PRN PRN Reason: Tachycardia Stop: 03/25/18 12:29 Miscellaneous (Vancomycin Iv Per Pharmacy) 1 ea MC PRN PRN PRN Reason: PHARMACIST TO DOSE Stop: 04/02/18 08:25 Miscellaneous (Misc Oral Tab) 1 tab PO BID [facility] Stop: 02/08/18 09:01 Last Admin: 02/02/18 18:15 Dose: 1 tab Morphine Sulfate (Morphine) 1 mg IV Q4HR PRN PRN Reason: MOD TO SEVERE PAIN Stop: 04/02/18 15:59 Multivitamins/Vitamin C (Theragran) 1 tab PO DAILY [facility] Stop: 03/22/18 08:59 Last Admin: 02/02/18 08:49 Dose: 1 tab Ondansetron HCl (Zofran Odt) 4 mg PO Q6H PRN PRN Reason: Nausea / Vomiting Stop: 03/21/18 16:07 Pantoprazole Sodium (Protonix) 40 mg NG DAILY [facility] Stop: 03/28/18 16:59 Last Admin: 02/02/18 08:49 Dose: 40 mg Prednisone (Deltasone) 10 mg PO DAILY [facility] Stop: 03/22/18 08:59 Last Admin: 02/02/18 08:49 Dose: 10 mg Sodium Bicarbonate (Sodium Bicarbonate) 650 mg PO BID [facility] PRN Reason: Protocol Stop: 03/29/18 16:59 Last Admin: 02/02/18 19:00 Dose: Not Given Sodium Phosphate (Fleet Enema) 135 ml RC DAILY PRN PRN Reason: Constipation Stop: 03/21/18 16:07 Vitamin A (Vitamin A & D) 5 gm TP DAILY [facility] Stop: 03/22/18 08:59 Last Admin: 02/02/18 09:00 Dose: 5 gm General: no acute distress, well developed, well nourished HEENT: atraumatic, normocephalic, PERRLA Neck: supple, thyromegaly, lymphadenopathy Cardiovascular: S1S2, no regular Lungs: clear to percussion, crackles Abdomen: soft, no tender, no distended, no mass Extremities: no cyanosis, no clubbing, no edema Neurological: other (comatose) Skin: intact - Procedures Procedures: Procedures Procedure Code Date INSERT EMERGENCY AIRWAY 27478 01/20/18 INSERTION OF ENDOTRACHEAL AIRWAY INTO [place], VIA OPENING [id number] 01/20/18 RESPIRATORY VENTILATION, GREATER THAN 96 CONSECUTIVE HOURS [id number] 01/20/18 VENT MGMT INPAT INIT DAY 94692 01/20/18 Infectious Disease Assmt/Plan - Problem List Patient Problems: All Active Problems ELEVATED WBC, LUNG INFILTRATES (Acute) - Assessment Assessment: 1. Leukocytosis. suspect sepsis. 2. Pneumonia. L lung. 3. Dementia 4. S/p CP arrest. 5. Anoxic encephalopathy. 6. VDRF. 7. Increaing creatinine. LAURENCE. oliguric. 8. pulmonary aspergillosis. - Plan Plan: Continue vanco IV and meropenem. Change diflucan to voriconazole po ( not IV). 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 continue flagyl suspecting c diff at this high WBC count. Nutritional Asmnt/Malnutr-PDOC - Dietary Evaluation Malnutrition Findings (Please click <Entered> for more info): Nutritional Asmnt/Malnutrition Start: 01/21/18 16: 32 Text: Status: Complete Freq: Document 01/21/18 16:32 LCHENG (Rec: 01/21/18 16:48 [email or web address] [email or web address]) Nutritional Asmnt/Malnutrition Patient General Information Nutritional Screening High Risk Consult Diagnosis left lung infiltrate Pertinent Medical Hx/Surgical Hx dementia, HTN, hyperlipidemia per ER notes, no H&P at this time Subjective Information Pt seen sleeping at time of visit, not able to wake up for lunch. Per [employer], pt only had cereal and scrambled eggs this morning, not able to chew the Portuguese toast d/t weakness. Current Diet Order/ Nutrition Support low cholesterol 300gm Pertinent Medications D5-0.45ns, novolog, megace, theragran, piperacillin, vit A &D Pertinent Labs 01/21 BUN 32, Glucose 180, POC 142-261 01/20 A1c 5.1, POC 127-165 Nutritional Hx/Data Height 1.6 m Height (Calculated Centimeters) 160.0 Current Weight (lbs) 37.648 kg Weight (Calculated Kilograms) 37.6 Weight (Calculated Grams) 01220.2 Ward Body Weight 115 Body Mass Index (BMI) 14.7 Weight Status Underweight GI Symptoms GI Symptoms None Last BM none Difficult in: None Skin Integrity/Comment: reddened to vagina and coccyx Current %PO Poor (25-49%) Estimated Nutritional Goals Calories/Kcals/Kg 25-30 Kcals Calculated 1203-8007 Protein g/k Protein Calculated 52 Fluid: ml 1300-1560ml (1ml/kcal) Nutritional Problem 2. Problem Problem chewing difficulty Etiology weakness, sleepy Signs/Symptoms: pt need for mech soft diet 1. Problem Problem altered nutrition related lab values Etiology hyperglycemia Signs/Symptoms: Glucose 180, POC 127-261 Intervention/Recommendation Comments 1. Recommend Mech soft ground diet with Boost BID to increase nutrition intake. 2. Monitor PO intake, wt, labs and skin integrity 3. F/U as high risk in 2-3 days, 01/23-01/24 Expected Outcomes/Goals Expected Outcomes/Goals 1. PO intake to meet at least 75% of nutritional needs. 2. Wt stability, skin to remain intact, labs to approach WNL.
[2018-02-03] MEDS: Diltiazem 30 mg Tab PO SCH ×4 (00:10→17:49)
[2018-02-03] MEDS: INSULIN ASPART SLIDING SCALE 100 UNITS/ML UNIT SUBQ SCH ×5 (00:10→23:59)
[2018-02-03] MEDS: Albuterol/Ipratropium Neb 3 ML AERS HHN SCH ×4 (01:15→19:38)
--- NOTE | 2018-02-03 01:37 | Operative Report ---
DATE OF SURGERY: 02/02/2018 PREOPERATIVE DIAGNOSES: 1. Malfunctioning Jose Maria catheter, left subclavian vein. 2. Acute renal failure. 3. Respiratory failure, on vent. POSTOPERATIVE DIAGNOSES: 1. Malfunctioning Jose Maria catheter, left subclavian vein. 2. Acute renal failure. 3. Respiratory failure, on vent. OPERATION DONE: Placement of new Jose Maria catheter, right subclavian vein under ultrasound guidance. PROCEDURE IN DETAIL: The right chest was prepped with ChloraPrep, 1% lidocaine was used to infiltrate The area identified on ultrasound. An incision was made and size 18 needle was used for the vein. The guidewire was inserted and went in smoothly. The dilator was then placed over the guidewire and then the double lumen catheter. This was anchored to skin with 3-0 nylon. Portable chest was ordered. JOB# [id number]
[2018-02-03] MEDS: metroNIDAZOLE 500mg/NS 100mL 500 MG/100 ML BAG IV SCH ×3 (04:45→21:53)
[2018-02-03 05:03] LABS: ANION GAP 12.6 (7.0-16.0); BUN - UREA NITROGEN 43 mg/dL (7-25); CALCIUM SERUM 8.7 mg/dL (8.6-10.3); CARBON DIOXIDE 25.2 mEq/L (21.0-31.0); CHLORIDE 106 mEq/L (98-107); CREATININE - SERUM 1.5 mg/dL (0.6-1.2); GLUCOSE 85 mg/dL (70-105); POTASSIUM SERUM 3.8 mEq/L (3.5-5.1); SODIUM SERUM 140 mEq/L (136-145)
[2018-02-03 05:04] LABS: % BASOPHILS 0.6 % (0.0-2.0); % EOSINOPHILS 1.2 % (0.0-5.0); % LYMPHOCYTES 3.6 % (20.0-50.0); % MONOCYTES 4.8 % (2.0-10.0); % NEUTROPHILS 89.8 % (40.0-80.0); BASOPHILE ABSOLUTE 0.1 Th/cumm (0-0.2); EOSINOPHILE ABSOLUTE 0.2 Th/cmm (0.1-0.4); HEMATOCRIT 25.4 % (41.0-60); HEMOGLOBIN 8.8 gm/dL (12-16); LYMPHOCYTE ABSOLUTE 0.6 Th/cmm (1.5-3.0); MEAN CELL VOLUME 88.7 fl (81-100); MEAN CORPUSCULAR HEMOGLOBIN 30.7 pg (27.0-31.0); MEAN CORPUSCULAR HGB CONC 34.6 pg (28.0-36.0); MEAN PLATELET VOLUME 9.4 fl; MONOCYTE ABSOLUTE 0.8 Th/cmm (0.3-1.0); NEUTROPHILE ABSOLUTE 15.7 Th/cmm (1.8-8.0); PLATELET COUNT 38 Th/cmm (150-400); RED BLOOD COUNT 2.86 Mil/cmm (3.80-5.20); RED CELL DISTRIBUTION WIDTH 15.3 % (11.5-20.0)
[2018-02-03 05:09] LABS: WHITE BLOOD COUNT 17.4 Th/cmm (4.8-10.8)
[2018-02-03] MEDS: Budesonide 0.5 Mg/2 mL Ud HHN SCH ×2 (07:20→19:39)
[2018-02-03] MEDS: Chlorhexidine Gluconate 0.12% 15mL Mouthwash MM SCH ×2 (08:40→21:57)
[2018-02-03] MEDS: Meropenem 1 GM in Sodium Chloride 0.9% 100 ML IV SCH ×2 (09:00→20:51)
[2018-02-03] MEDS: Pantoprazole 40 mg/Packet NG SCH (09:43)
[2018-02-03] MEDS: Multivitamin Tab PO SCH (09:44)
[2018-02-03] MEDS: Vitamin A/Vitamin D 5 gm Packet TP SCH (09:45)
[2018-02-03] MEDS: VORICONAZOLE 200 MG PO SCH ×2 (09:45→17:44)
--- NOTE | 2018-02-03 10:12 | Diagnostic Imaging Report ---
CHEST X-RAY: AP view INDICATION: Dialysis catheter placement COMPARISON: 02/01/2018 FINDINGS: Right sided dialysis catheter is seen with tip in the cavoatrial junction. Previous left dialysis catheter is seen with tip in SVC. Remaining support devices are stable. Congestive changes are seen with small bilateral effusions. No evidence of pneumothorax. Heart size is normal. Compression fracture of L1 is again noted. IMPRESSION: New right-sided dialysis catheter with tip in the cavoatrial junction. Congestive changes, small bilateral effusions and bibasal infiltrates. No evidence of pneumothorax.
--- NOTE | 2018-02-03 10:18 | Diagnostic Imaging Report ---
CHEST X-RAY: AP view INDICATION: Shortness of breath COMPARISON: 02/03/2016 at 1513 FINDINGS: Support devices are stable accounting for differences in positioning. Mild congestive changes are seen with small bilateral effusions. Chronic changes are noted. Heart size is normal. IMPRESSION: Mild congestive changes and small bilateral effusions. Pneumonia of the lung bases cannot be excluded.
--- NOTE | 2018-02-03 10:22 | General Progress Note ---
Subjective - Review of Systems Events since last encounter: patient remains intubated orally on vent support. Objective - Results Result Diagrams: 02/03/18 04:20 02/03/18 04:20 Recent Labs: Laboratory Last Values WBC 17.4 Th/cmm (4.8-10.8) H 02/03/18 04:20 RBC 2.86 Mil/cmm (3.80-5.20) L 02/03/18 04:20 Hgb 8.8 gm/dL (12-16) L 02/03/18 04:20 Hct 25.4 % (41.0-60) L 02/03/18 04:20 MCV 88.7 fl (81-100) 02/03/18 04:20 MCH 30.7 pg (27.0-31.0) 02/03/18 04:20 MCHC Differential 34.6 pg (28.0-36.0) 02/03/18 04:20 RDW 15.3 % (11.5-20.0) 02/03/18 04:20 Plt Count 38 Th/cmm (150-400) L 02/03/18 04:20 MPV 9.4 fl 02/03/18 04:20 Neutrophils % 89.8 % (40.0-80.0) H 02/03/18 04:20 Band Neutrophils % 5 % (0-10) 01/31/18 04:10 Lymphocytes % 3.6 % (20.0-50.0) L 02/03/18 04:20 Monocytes % 4.8 % (2.0-10.0) 02/03/18 04:20 Eosinophils % 1.2 % (0.0-5.0) 02/03/18 04:20 Basophils % 0.6 % (0.0-2.0) 02/03/18 04:20 Neutrophils (Manual) 83 % (40-80) H 01/31/18 04:10 Lymphocytes 8 % (20-50) L 01/31/18 04:10 Monocytes 4 % (2-10) 01/31/18 04:10 Eosinophils 0 % (0-5) 01/27/18 04:58 Basophils 0 % (0-3) 01/27/18 04:58 Platelet Estimate SLIGHT DECREASED (NORMAL) 01/31/18 04:10 Platelet Morphology NORMAL (NORMAL) 01/27/18 04:58 RBC Morph Micro Appear NORMAL (NORMAL) 01/27/18 04:58 Eos Smear Source URINE 01/28/18 17:10 Eos Smear Total Cells NONE SEEN (NONE SEEN) 01/28/18 17:10 PT 9.3 SECONDS (9.5-11.5) L 01/29/18 21:26 INR 0.90 (0.5-1.4) 01/29/18 21:26 PTT (Actin FS) 46.6 SECONDS (26.0-38.0) H 01/29/18 21:26 Specimen Source Arterial 01/24/18 17:45 Sample Site Left Radial 01/24/18 17:45 pH 7.41 (7.35-7.45) 01/24/18 17:45 pCO2 32.0 mmHg (35.0-45.0) L 01/24/18 17:45 pO2 397.0 mmHg (80.0-100.0) H 01/24/18 17:45 HCO3 22.3 mEq/L (20.0-26.0) 01/24/18 17:45 Base Excess -3.5 mEq/L (-3.0-3.0) L 01/24/18 17:45 O2 Saturation 100.0 % (92.0-100.0) 01/24/18 17:45 Bebo Test YES 01/24/18 17:45 Vent Rate 14 01/24/18 17:45 Inspired O2 100 01/24/18 17:45 Tidal Volume 450 01/24/18 17:45 PEEP 5 01/24/18 17:45 Pressure (ins/psv/peep) NA 01/24/18 17:45 Critical Value E.BRIDGES 01/24/18 17:45 Sodium 140 mEq/L (136-145) 02/03/18 04:20 Potassium 3.8 mEq/L (3.5-5.1) 02/03/18 04:20 Chloride 106 mEq/L (98-107) 02/03/18 04:20 Carbon Dioxide 25.2 mEq/L (21.0-31.0) 02/03/18 04:20 Anion Gap 12.6 (7.0-16.0) 02/03/18 04:20 BUN 43 mg/dL (7-25) H 02/03/18 04:20 Creatinine 1.5 mg/dL (0.6-1.2) H 02/03/18 04:20 Est GFR ( Amer) TNP 02/03/18 04:20 Est GFR (Non-Af Amer) TNP 02/03/18 04:20 BUN/Creatinine Ratio 28.7 02/03/18 04:20 Glucose 85 mg/dL (70-105) 02/03/18 04:20 POC Glucose 92 MG/DL (70 - 105) 02/03/18 05:53 Hemoglobin A1c % 5.1 % (4.0-6.0) 01/20/18 12:15 Plasma/Ser Osmolality 287 mOsmol/kg (280-301) 01/28/18 17:45 Whole Bld Lactic Acid 1.50 mmol/L (0.60-1.99) 01/28/18 13:40 Uric Acid 5.3 mg/dL (2.3-6.6) 01/30/18 05:06 Calcium 8.7 mg/dL (8.6-10.3) 02/03/18 04:20 Phosphorus 3.3 mg/dL (2.5-5.0) 01/30/18 05:06 Magnesium 2.3 mg/dL (1.9-2.7) 01/30/18 05:06 Iron 54 ug/dL (27-139) 01/20/18 12:50 TIBC 159 ug/dL (250-450) L 01/20/18 12:50 Iron Saturation 34 % (15-55) 01/20/18 12:50 Unsaturated IBC 105 ug/dL (118-369) L 01/20/18 12:50 Ferritin 1230 ng/mL (15-150) H 01/20/18 12:50 Total Bilirubin 0.3 mg/dL (0.3-1.0) 01/29/18 05:10 Direct Bilirubin 0.07 mg/dL (0.0-0.2) 01/20/18 12:30 AST 54 U/L (13-39) H 01/29/18 05:10 ALT 93 U/L (7-52) H 01/29/18 05:10 Alkaline Phosphatase 105 U/L (34-104) H 01/29/18 05:10 Troponin I 0.03 ng/mL (0.01-0.05) 01/20/18 12:15 C-Reactive Protein 4.3 mg/dL (0.0-0.9) H 01/20/18 12:50 B-Natriuretic Peptide 185.0 pg/mL (5.0-100.0) H 01/25/18 04:20 Total Protein 3.7 gm/dL (6.0-8.3) L 01/29/18 05:10 Albumin 1.6 gm/dL (3.7-5.3) L 01/29/18 05:10 Globulin 2.1 gm/dL 01/29/18 05:10 Albumin/Globulin Ratio 0.8 (1.0-1.8) L 01/29/18 05:10 Triglycerides 97 mg/dL (<150) 01/20/18 12:15 Cholesterol 195 mg/dL (<200) 01/20/18 12:15 LDL Cholesterol Direct 152 mg/dL (75-193) 01/20/18 12:15 HDL Cholesterol 40 mg/dL (23-92) 01/20/18 12:15 Lipase 108 U/L (11-82) H 01/20/18 12:15 Free T4 1.12 ng/dL (0.82-1.77) 01/20/18 12:50 TSH 0.06 uIU/ml (0.34-5.60) L 01/20/18 12:15 Urine Source [place] 01/28/18 17:10 Urine Color YELLOW 01/28/18 17:10 Urine Clarity CLOUDY (CLEAR) H 01/28/18 17:10 Urine pH 6.0 (4.6 - 8.0) 01/28/18 17:10 Ur Specific [place] 1.020 (1.005-1.030) 01/28/18 17:10 Urine Protein 100 mg/dL (NEGATIVE) H 01/28/18 17:10 Urine Glucose (UA) NEGATIVE mg/dL (NEGATIVE) 01/28/18 17:10 Urine Ketones NEGATIVE mg/dL (NEGATIVE) 01/28/18 17:10 Urine Blood MODERATE (NEGATIVE) H 01/28/18 17:10 Urine Nitrate NEGATIVE (NEGATIVE) 01/28/18 17:10 Urine Bilirubin NEGATIVE (NEGATIVE) 01/28/18 17:10 Urine Urobilinogen 0.2 E.U./dL (0.2 - 1.0) 01/28/18 17:10 Ur Leukocyte Esterase MODERATE (NEGATIVE) H 01/28/18 17:10 Urine RBC 5-10 /hpf (0-5) H 01/28/18 17:10 Urine WBC 10-25 /hpf (0-5) H 01/28/18 17:10 Ur Epithelial Cells OCCASIONAL /lpf (FEW) 01/28/18 17:10 Urine Bacteria OCCASIONAL /hpf (NONE SEEN) 01/28/18 17:10 Urine Yeast MANY /hpf (NONE SEEN) H 01/28/18 17:10 Ur Random Sodium 56 mmol/L 01/28/18 17:10 Urine Creatinine 39.0 mg/dl (28.0-217.0) 01/28/18 17:10 Vancomycin Trough 27.8 ug/mL (10-20) H 01/26/18 23:00 Random Vancomycin 22.6 ug/mL (5.0-40.0) 02/03/18 04:20 Blood Type O POSITIVE 01/30/18 07:35 Antibody Screen NEGATIVE 01/30/18 07:35 Crossmatch See Detail 01/30/18 07:35 - Physical Exam Vitals and I&O: Vital Signs Temp 97.3 F 02/03/18 04:00 Pulse 68 02/03/18 09:46 Resp 18 02/03/18 06:00 BP 100/41 02/03/18 09:46 Pulse Ox 100 02/03/18 09:45 Intake & Output 02/02/18 02/03/18 02/03/18 18:59 06:59 18:59 Intake Total 450 722.865 Output Total 100 151 Balance 350 571.865 Weight (lbs) 56.971 kg 55.338 kg Intake: Intake, IV Amount 200 362.865 Meropenem 1 gm In Sodium 100 100 Chloride 0.9% 100 ml @ 100 mls/hr IV Q12H [facility] Rx #:[id number] Norepinephrine 4 mg In 0 62.865 Sodium Chloride 0.9% 250 ml @ 4 MCG/MIN 15.24 mls/ hr IV TITR [facility] Rx#: [id number] metroNIDAZOLE 500mg/NS 100 200 100mL 500 mg In 100 ml @ 100 mls/hr IV Q8HR [facility] Rx #:[id number] Tube Feeding 150 360 Other 100 Output: Urine 100 150 Stool 1 Other: # Bowel Movements 1 Stool Characteristics Soft Brown Black Weight Source Bedscale Bedscale Active Medications: Current Medications Acetaminophen (Tylenol) 650 mg PO Q4H PRN PRN Reason: MILD PAIN OR TEMP >100.4 Stop: 03/21/18 16:07 Al Hydrox/Mg Hydrox/Simethicone (Maalox) 30 ml PO Q6HR PRN PRN Reason: GI DISTRESS Stop: 03/21/18 16:28 Albuterol/Ipratropium (Duoneb Neb) 3 ml HHN Q6HRT [facility] Stop: 03/30/18 00:59 Last Admin: 02/03/18 07:20 Dose: 3 ml Amlodipine Besylate (Norvasc) 10 mg PO DAILY [facility] Stop: 04/02/18 16:59 Last Admin: 02/03/18 09:46 Dose: Not Given Artificial Tears (Artificial Tears Ophth Soln) 1 drop EACH EYE Q2HR PRN PRN Reason: Dry Eye Stop: 03/27/18 09:28 Last Admin: 01/26/18 10:13 Dose: 1 drop Atorvastatin Calcium (Lipitor) 80 mg PO HS [facility] PRN Reason: Protocol Stop: 03/21/18 20:59 Last Admin: 02/02/18 21:57 Dose: 80 mg Bisacodyl (Dulcolax 10 Mg Supp) 10 mg RC DAILY PRN PRN Reason: Constipation Stop: 03/21/18 16:07 Budesonide (Pulmicort) 0.5 mg HHN BIDRT [facility] Stop: 04/01/18 18:59 Last Admin: 02/03/18 07:20 Dose: 0.5 mg Carvedilol (Coreg) 12.5 mg PO BID [facility] Stop: 03/21/18 16:59 Last Admin: 02/03/18 09:45 Dose: Not Given Chlorhexidine Gluconate (Peridex) 15 ml MM 0800,2000 [facility] Stop: 03/27/18 07:59 Last Admin: 02/03/18 08:40 Dose: 15 ml Dextrose (D50w) 50 ml IVP PRN PRN PRN Reason: HYPOGLYCEMIA Stop: 03/21/18 16:07 Diltiazem HCl (Cardizem) 60 mg PO Q6HR [facility] Stop: 03/21/18 17:59 Last Admin: 02/03/18 05:54 Dose: Not Given Enalaprilat (Vasotec) 2.5 mg IVP Q6HR PRN PRN Reason: SBP ABOVE 160 Stop: 03/25/18 11:59 Last Admin: 02/01/18 20:35 Dose: 2.5 mg Glucagon (Glucagen) 1 mg IVP PRN PRN PRN Reason: HYPOGLYCEMIA Stop: 03/21/18 16:25 Meropenem 1 gm/ Sodium (Chloride) 100 mls @ 100 mls/hr IV Q12H [facility] Stop: 03/26/18 08:59 Last Admin: 02/03/18 09:00 Dose: 100 mls/hr Phenylephrine HCl 10 mg/ (Sodium Chloride) 250 mls @ 75 mls/hr IV TITR [facility]; 50 MCG/MIN PRN Reason: Protocol Stop: 03/25/18 20:14 Norepinephrine Bitartrate 4 mg (/ Sodium Chloride) 254 mls @ 15.24 mls/hr IV TITR [facility]; 4 MCG/MIN PRN Reason: Protocol Stop: 03/26/18 08:14 Last Titration: 02/02/18 22:00 Dose: 0 mcg/min, 0 mls/hr Metronidazole (Flagyl) 500 mg in 100 mls @ 100 mls/hr IV Q8HR [facility] Stop: 03/31/18 20:59 Last Infusion: 02/03/18 05:45 Dose: Infused Vancomycin HCl 1 gm/ Sodium (Chloride) 250 mls @ 165 mls/hr IV 1800 ONE Stop: 02/03/18 19:30 Insulin Aspart (Novolog Insulin Sliding Scale) 0 units SUBQ Q6HR [facility] PRN Reason: Protocol Stop: 03/27/18 00:00 Last Admin: 02/03/18 05:55 Dose: Not Given Losartan Potassium (Cozaar) 100 mg PO DAILY [facility] Stop: 04/02/18 16:59 Last Admin: 02/03/18 09:45 Dose: Not Given Magnesium Hydroxide (Milk Of Magnesia) 30 ml PO DAILY PRN PRN Reason: IF NO BM IN TWO DAYS Stop: 03/21/18 16:07 Megestrol Acetate (Megace) 400 mg PO BID [facility] Stop: 03/21/18 16:59 Last Admin: 02/03/18 09:43 Dose: 400 mg Metoprolol Tartrate (Lopressor) 5 mg IV Q4H PRN PRN Reason: Tachycardia Stop: 03/25/18 12:29 Miscellaneous (Vancomycin Iv Per Pharmacy) 1 ea MC PRN PRN PRN Reason: PHARMACIST TO DOSE Stop: 04/02/18 08:25 Miscellaneous (Misc Oral Tab) 1 tab PO BID [facility] Stop: 02/08/18 09:01 Last Admin: 02/03/18 09:45 Dose: 1 tab Morphine Sulfate (Morphine) 1 mg IV Q4HR PRN PRN Reason: MOD TO SEVERE PAIN Stop: 04/02/18 15:59 Multivitamins/Vitamin C (Theragran) 1 tab PO DAILY [facility] Stop: 03/22/18 08:59 Last Admin: 02/03/18 09:44 Dose: 1 tab Ondansetron HCl (Zofran Odt) 4 mg PO Q6H PRN PRN Reason: Nausea / Vomiting Stop: 03/21/18 16:07 Pantoprazole Sodium (Protonix) 40 mg NG DAILY [facility] Stop: 03/28/18 16:59 Last Admin: 02/03/18 09:43 Dose: 40 mg Prednisone (Deltasone) 10 mg PO DAILY [facility] Stop: 03/22/18 08:59 Last Admin: 02/03/18 09:43 Dose: 10 mg Sodium Bicarbonate (Sodium Bicarbonate) 650 mg PO BID [facility] PRN Reason: Protocol Stop: 03/29/18 16:59 Last Admin: 02/03/18 09:43 Dose: 650 mg Sodium Phosphate (Fleet Enema) 135 ml RC DAILY PRN PRN Reason: Constipation Stop: 03/21/18 16:07 Vitamin A (Vitamin A & D) 5 gm TP DAILY [facility] Stop: 03/22/18 08:59 Last Admin: 02/03/18 09:45 Dose: 5 gm General: Moderate distress, Other (more awake) HEENT: Atraumatic, Mucous membr. moist/pink, Other (facial edema) Neck: Supple, +2 carotid pulse wo bruit Cardiovascular: Regular rate, Normal S1, Normal S2 Lungs: Other (decreased BS, coarse rhonchi) Abdomen: Bowel sounds, Soft Extremities: Edema, Other (less edema) Neurological: Sensation intact Skin: no Rash Psych/Mental Status: Other (obtunded) - Procedures Procedures: Procedures Procedure Code Date INSERT EMERGENCY AIRWAY 26596 01/20/18 INSERTION OF ENDOTRACHEAL AIRWAY INTO [place]HE[place], VIA OPENING [id number] 01/20/18 RESPIRATORY VENTILATION, GREATER THAN 96 CONSECUTIVE HOURS [id number] 01/20/18 VENT MGMT INPAT INIT 00388 01/20/18 Assessment/Plan - Problem List Patient Problems: All Active Problems ELEVATED WBC, LUNG INFILTRATES (Acute) Nutritional Asmnt/Malnutr-PDOC - Dietary Evaluation Malnutrition Findings (Please click <Entered> for more info): Nutritional Asmnt/Malnutrition Start: 01/21/18 16: 32 Text: Status: Complete Freq: Document 01/21/18 16:32 LCHENG (Rec: 01/21/18 16:48 [email or web address] [email or web address]) Nutritional Asmnt/Malnutrition Patient General Information Nutritional Screening High Risk Consult Diagnosis left lung infiltrate Pertinent Medical Hx/Surgical Hx dementia, HTN, hyperlipidemia per ER notes, no H&P at this time Subjective Information Pt seen sleeping at time of visit, not able to wake up for lunch. Per [facility], pt only had cereal and scrambled eggs this morning, not able to chew the [place] toast d/t weakness. Current Diet Order/ Nutrition Support low cholesterol 300gm Pertinent Medications D5-0.45ns, novolog, megace, theragran, piperacillin, vit A &D Pertinent Labs 01/21 BUN 32, Glucose 180, POC 142-261 01/20 A1c 5.1, POC 127-165 Nutritional Hx/Data Height 1.6 m Height (Calculated Centimeters) 160.0 Current Weight (lbs) 37.648 kg Weight (Calculated Kilograms) 37.6 Weight (Calculated Grams) 79527.2 [place] Body Weight 115 Body Mass Index (BMI) 14.7 Weight Status Underweight GI Symptoms GI Symptoms None Last BM none Difficult in: None Skin Integrity/Comment: reddened to vagina and coccyx Current %PO Poor (25-49%) Estimated Nutritional Goals Calories/Kcals/Kg 25-30 Kcals Calculated [id number] Protein g/k Protein Calculated 52 Fluid: ml 1300-1560ml (1ml/kcal) Nutritional Problem 2. Problem Problem chewing difficulty Etiology weakness, sleepy Signs/Symptoms: pt need for mech soft diet 1. Problem Problem altered nutrition related lab values Etiology hyperglycemia Signs/Symptoms: Glucose 180, POC 127-261 Intervention/Recommendation Comments 1. Recommend Mech soft ground diet with Boost BID to increase nutrition intake. 2. Monitor PO intake, wt, labs and skin integrity 3. F/U as high risk in 2-3 days, 01/23-01/24 Expected Outcomes/Goals Expected Outcomes/Goals 1. PO intake to meet at least 75% of nutritional needs. 2. Wt stability, skin to remain intact, labs to approach WNL.
--- NOTE | 2018-02-03 16:59 | General Progress Note ---
Subjective - Review of Systems Service Date: 02/03/18 Subjective: stuporous today, on vent Objective - Results Result Diagrams: 02/03/18 04:20 02/03/18 04:20 Recent Labs: Laboratory Last Values WBC 17.4 Th/cmm (4.8-10.8) H 02/03/18 04:20 RBC 2.86 Mil/cmm (3.80-5.20) L 02/03/18 04:20 Hgb 8.8 gm/dL (12-16) L 02/03/18 04:20 Hct 25.4 % (41.0-60) L 02/03/18 04:20 MCV 88.7 fl (81-100) 02/03/18 04:20 MCH 30.7 pg (27.0-31.0) 02/03/18 04:20 MCHC Differential 34.6 pg (28.0-36.0) 02/03/18 04:20 RDW 15.3 % (11.5-20.0) 02/03/18 04:20 Plt Count 38 Th/cmm (150-400) L 02/03/18 04:20 MPV 9.4 fl 02/03/18 04:20 Neutrophils % 89.8 % (40.0-80.0) H 02/03/18 04:20 Band Neutrophils % 5 % (0-10) 01/31/18 04:10 Lymphocytes % 3.6 % (20.0-50.0) L 02/03/18 04:20 Monocytes % 4.8 % (2.0-10.0) 02/03/18 04:20 Eosinophils % 1.2 % (0.0-5.0) 02/03/18 04:20 Basophils % 0.6 % (0.0-2.0) 02/03/18 04:20 Neutrophils (Manual) 83 % (40-80) H 01/31/18 04:10 Lymphocytes 8 % (20-50) L 01/31/18 04:10 Monocytes 4 % (2-10) 01/31/18 04:10 Eosinophils 0 % (0-5) 01/27/18 04:58 Basophils 0 % (0-3) 01/27/18 04:58 Platelet Estimate SLIGHT DECREASED (NORMAL) 01/31/18 04:10 Platelet Morphology NORMAL (NORMAL) 01/27/18 04:58 RBC Morph Micro Appear NORMAL (NORMAL) 01/27/18 04:58 Eos Smear Source URINE 01/28/18 17:10 Eos Smear Total Cells NONE SEEN (NONE SEEN) 01/28/18 17:10 PT 9.3 SECONDS (9.5-11.5) L 01/29/18 21:26 INR 0.90 (0.5-1.4) 01/29/18 21:26 PTT (Actin FS) 46.6 SECONDS (26.0-38.0) H 01/29/18 21:26 Specimen Source Arterial 01/24/18 17:45 Sample Site Left Radial 01/24/18 17:45 pH 7.41 (7.35-7.45) 01/24/18 17:45 pCO2 32.0 mmHg (35.0-45.0) L 01/24/18 17:45 pO2 397.0 mmHg (80.0-100.0) H 01/24/18 17:45 HCO3 22.3 mEq/L (20.0-26.0) 01/24/18 17:45 Base Excess -3.5 mEq/L (-3.0-3.0) L 01/24/18 17:45 O2 Saturation 100.0 % (92.0-100.0) 01/24/18 17:45 Bebo Test YES 01/24/18 17:45 Vent Rate 14 01/24/18 17:45 Inspired O2 100 01/24/18 17:45 Tidal Volume 450 01/24/18 17:45 PEEP 5 01/24/18 17:45 Pressure (ins/psv/peep) NA 01/24/18 17:45 Critical Value E.BRIDGES 01/24/18 17:45 Sodium 140 mEq/L (136-145) 02/03/18 04:20 Potassium 3.8 mEq/L (3.5-5.1) 02/03/18 04:20 Chloride 106 mEq/L (98-107) 02/03/18 04:20 Carbon Dioxide 25.2 mEq/L (21.0-31.0) 02/03/18 04:20 Anion Gap 12.6 (7.0-16.0) 02/03/18 04:20 BUN 43 mg/dL (7-25) H 02/03/18 04:20 Creatinine 1.5 mg/dL (0.6-1.2) H 02/03/18 04:20 Est GFR ( Amer) TNP 02/03/18 04:20 Est GFR (Non-Af Amer) TNP 02/03/18 04:20 BUN/Creatinine Ratio 28.7 02/03/18 04:20 Glucose 85 mg/dL (70-105) 02/03/18 04:20 POC Glucose 134 MG/DL (70 - 105) H 02/03/18 11:52 Hemoglobin A1c % 5.1 % (4.0-6.0) 01/20/18 12:15 Plasma/Ser Osmolality 287 mOsmol/kg (280-301) 01/28/18 17:45 Whole Bld Lactic Acid 1.50 mmol/L (0.60-1.99) 01/28/18 13:40 Uric Acid 5.3 mg/dL (2.3-6.6) 01/30/18 05:06 Calcium 8.7 mg/dL (8.6-10.3) 02/03/18 04:20 Phosphorus 3.3 mg/dL (2.5-5.0) 01/30/18 05:06 Magnesium 2.3 mg/dL (1.9-2.7) 01/30/18 05:06 Iron 54 ug/dL (27-139) 01/20/18 12:50 TIBC 159 ug/dL (250-450) L 01/20/18 12:50 Iron Saturation 34 % (15-55) 01/20/18 12:50 Unsaturated IBC 105 ug/dL (118-369) L 01/20/18 12:50 Ferritin 1230 ng/mL (15-150) H 01/20/18 12:50 Total Bilirubin 0.3 mg/dL (0.3-1.0) 01/29/18 05:10 Direct Bilirubin 0.07 mg/dL (0.0-0.2) 01/20/18 12:30 AST 54 U/L (13-39) H 01/29/18 05:10 ALT 93 U/L (7-52) H 01/29/18 05:10 Alkaline Phosphatase 105 U/L (34-104) H 01/29/18 05:10 Troponin I 0.03 ng/mL (0.01-0.05) 01/20/18 12:15 C-Reactive Protein 4.3 mg/dL (0.0-0.9) H 01/20/18 12:50 B-Natriuretic Peptide 185.0 pg/mL (5.0-100.0) H 01/25/18 04:20 Total Protein 3.7 gm/dL (6.0-8.3) L 01/29/18 05:10 Albumin 1.6 gm/dL (3.7-5.3) L 01/29/18 05:10 Globulin 2.1 gm/dL 01/29/18 05:10 Albumin/Globulin Ratio 0.8 (1.0-1.8) L 01/29/18 05:10 Triglycerides 97 mg/dL (<150) 01/20/18 12:15 Cholesterol 195 mg/dL (<200) 01/20/18 12:15 LDL Cholesterol Direct 152 mg/dL (75-193) 01/20/18 12:15 HDL Cholesterol 40 mg/dL (23-92) 01/20/18 12:15 Lipase 108 U/L (11-82) H 01/20/18 12:15 Free T4 1.12 ng/dL (0.82-1.77) 01/20/18 12:50 TSH 0.06 uIU/ml (0.34-5.60) L 01/20/18 12:15 Urine Source [place]APIEN [place] 01/28/18 17:10 Urine Color YELLOW 01/28/18 17:10 Urine Clarity CLOUDY (CLEAR) H 01/28/18 17:10 Urine pH 6.0 (4.6 - 8.0) 01/28/18 17:10 Ur Specific [place] 1.020 (1.005-1.030) 01/28/18 17:10 Urine Protein 100 mg/dL (NEGATIVE) H 01/28/18 17:10 Urine Glucose (UA) NEGATIVE mg/dL (NEGATIVE) 01/28/18 17:10 Urine Ketones NEGATIVE mg/dL (NEGATIVE) 01/28/18 17:10 Urine Blood MODERATE (NEGATIVE) H 01/28/18 17:10 Urine Nitrate NEGATIVE (NEGATIVE) 01/28/18 17:10 Urine Bilirubin NEGATIVE (NEGATIVE) 01/28/18 17:10 Urine Urobilinogen 0.2 E.U./dL (0.2 - 1.0) 01/28/18 17:10 Ur Leukocyte Esterase MODERATE (NEGATIVE) H 01/28/18 17:10 Urine RBC 5-10 /hpf (0-5) H 01/28/18 17:10 Urine WBC 10-25 /hpf (0-5) H 01/28/18 17:10 Ur Epithelial Cells OCCASIONAL /lpf (FEW) 01/28/18 17:10 Urine Bacteria OCCASIONAL /hpf (NONE SEEN) 01/28/18 17:10 Urine Yeast MANY /hpf (NONE SEEN) H 01/28/18 17:10 Ur Random Sodium 56 mmol/L 01/28/18 17:10 Urine Creatinine 39.0 mg/dl (28.0-217.0) 01/28/18 17:10 Vancomycin Trough 27.8 ug/mL (10-20) H 01/26/18 23:00 Random Vancomycin 22.6 ug/mL (5.0-40.0) 02/03/18 04:20 Blood Type O POSITIVE 01/30/18 07:35 Antibody Screen NEGATIVE 01/30/18 07:35 Crossmatch See Detail 01/30/18 07:35 - Physical Exam Vitals and I&O: Vital Signs Temp 96.4 F 02/03/18 13:00 Pulse 72 02/03/18 15:19 Resp 18 02/03/18 13:00 BP 107/50 02/03/18 13:00 Pulse Ox 99 02/03/18 15:19 Intake & Output 02/02/18 02/03/18 02/03/18 18:59 06:59 18:59 Intake Total 450 722.865 200 Output Total 100 151 Balance 350 571.865 200 Weight (lbs) 56.971 kg 55.338 kg Intake: Intake, IV Amount 200 362.865 200 Meropenem 1 gm In Sodium 100 100 100 Chloride 0.9% 100 ml @ 100 mls/hr IV Q12H [facility] Rx #:[id number] Norepinephrine 4 mg In 0 62.865 0 Sodium Chloride 0.9% 250 ml @ 4 MCG/MIN 15.24 mls/ hr IV TITR [facility] Rx#: [id number] metroNIDAZOLE 500mg/NS 100 200 100 100mL 500 mg In 100 ml @ 100 mls/hr IV Q8HR [facility] Rx #:[id number] Tube Feeding 150 360 Other 100 Output: Urine 100 150 Stool 1 Other: # Bowel Movements 1 Stool Characteristics Soft Brown Black Weight Source Bedscale Bedscale Active Medications: Current Medications Acetaminophen (Tylenol) 650 mg PO Q4H PRN PRN Reason: MILD PAIN OR TEMP >100.4 Stop: 03/21/18 16:07 Al Hydrox/Mg Hydrox/Simethicone (Maalox) 30 ml PO Q6HR PRN PRN Reason: GI DISTRESS Stop: 03/21/18 16:28 Albuterol/Ipratropium (Duoneb Neb) 3 ml HHN Q6HRT [facility] Stop: 03/30/18 00:59 Last Admin: 02/03/18 13:47 Dose: 3 ml Amlodipine Besylate (Norvasc) 10 mg PO DAILY [facility] Stop: 04/02/18 16:59 Last Admin: 02/03/18 09:46 Dose: Not Given Artificial Tears (Artificial Tears Ophth Soln) 1 drop EACH EYE Q2HR PRN PRN Reason: Dry Eye Stop: 03/27/18 09:28 Last Admin: 01/26/18 10:13 Dose: 1 drop Atorvastatin Calcium (Lipitor) 80 mg PO HS [facility] PRN Reason: Protocol Stop: 03/21/18 20:59 Last Admin: 02/02/18 21:57 Dose: 80 mg Bisacodyl (Dulcolax 10 Mg Supp) 10 mg RC DAILY PRN PRN Reason: Constipation Stop: 03/21/18 16:07 Budesonide (Pulmicort) 0.5 mg HHN BIDRT [facility] Stop: 04/01/18 18:59 Last Admin: 02/03/18 07:20 Dose: 0.5 mg Carvedilol (Coreg) 12.5 mg PO BID [facility] Stop: 03/21/18 16:59 Last Admin: 02/03/18 09:45 Dose: Not Given Chlorhexidine Gluconate (Peridex) 15 ml MM 0800,2000 [facility] Stop: 03/27/18 07:59 Last Admin: 02/03/18 08:40 Dose: 15 ml Dextrose (D50w) 50 ml IVP PRN PRN PRN Reason: HYPOGLYCEMIA Stop: 03/21/18 16:07 Diltiazem HCl (Cardizem) 60 mg PO Q6HR [facility] Stop: 03/21/18 17:59 Last Admin: 02/03/18 11:51 Dose: Not Given Enalaprilat (Vasotec) 2.5 mg IVP Q6HR PRN PRN Reason: SBP ABOVE 160 Stop: 03/25/18 11:59 Last Admin: 02/01/18 20:35 Dose: 2.5 mg Glucagon (Glucagen) 1 mg IVP PRN PRN PRN Reason: HYPOGLYCEMIA Stop: 03/21/18 16:25 Meropenem 1 gm/ Sodium (Chloride) 100 mls @ 100 mls/hr IV Q12H [facility] Stop: 03/26/18 08:59 Last Infusion: 02/03/18 10:00 Dose: Infused Phenylephrine HCl 10 mg/ (Sodium Chloride) 250 mls @ 75 mls/hr IV TITR [facility]; 50 MCG/MIN PRN Reason: Protocol Stop: 03/25/18 20:14 Norepinephrine Bitartrate 4 mg (/ Sodium Chloride) 254 mls @ 15.24 mls/hr IV TITR [facility]; 4 MCG/MIN PRN Reason: Protocol Stop: 03/26/18 08:14 Last Admin: 02/03/18 15:27 Dose: 4 mcg/min, 15.24 mls/hr Metronidazole (Flagyl) 500 mg in 100 mls @ 100 mls/hr IV Q8HR [facility] Stop: 03/31/18 20:59 Last Infusion: 02/03/18 13:00 Dose: Infused Vancomycin HCl 1 gm/ Sodium (Chloride) 250 mls @ 165 mls/hr IV 1800 ONE Stop: 02/03/18 19:30 Insulin Aspart (Novolog Insulin Sliding Scale) 0 units SUBQ Q6HR [facility] PRN Reason: Protocol Stop: 03/27/18 00:00 Last Admin: 02/03/18 11:53 Dose: Not Given Losartan Potassium (Cozaar) 100 mg PO DAILY [facility] Stop: 04/02/18 16:59 Last Admin: 02/03/18 09:45 Dose: Not Given Magnesium Hydroxide (Milk Of Magnesia) 30 ml PO DAILY PRN PRN Reason: IF NO BM IN TWO DAYS Stop: 03/21/18 16:07 Megestrol Acetate (Megace) 400 mg PO BID [facility] Stop: 03/21/18 16:59 Last Admin: 02/03/18 09:43 Dose: 400 mg Metoprolol Tartrate (Lopressor) 5 mg IV Q4H PRN PRN Reason: Tachycardia Stop: 03/25/18 12:29 Miscellaneous (Vancomycin Iv Per Pharmacy) 1 ea MC PRN PRN PRN Reason: PHARMACIST TO DOSE Stop: 04/02/18 08:25 Miscellaneous (Misc Oral Tab) 1 tab PO BID [facility] Stop: 02/08/18 09:01 Last Admin: 02/03/18 09:45 Dose: 1 tab Morphine Sulfate (Morphine) 1 mg IV Q4HR PRN PRN Reason: MOD TO SEVERE PAIN Stop: 04/02/18 15:59 Multivitamins/Vitamin C (Theragran) 1 tab PO DAILY [facility] Stop: 03/22/18 08:59 Last Admin: 02/03/18 09:44 Dose: 1 tab Ondansetron HCl (Zofran Odt) 4 mg PO Q6H PRN PRN Reason: Nausea / Vomiting Stop: 03/21/18 16:07 Pantoprazole Sodium (Protonix) 40 mg NG DAILY [facility] Stop: 03/28/18 16:59 Last Admin: 02/03/18 09:43 Dose: 40 mg Prednisone (Deltasone) 10 mg PO DAILY [facility] Stop: 03/22/18 08:59 Last Admin: 02/03/18 09:43 Dose: 10 mg Sodium Bicarbonate (Sodium Bicarbonate) 650 mg PO BID [facility] PRN Reason: Protocol Stop: 03/29/18 16:59 Last Admin: 02/03/18 09:43 Dose: 650 mg Sodium Phosphate (Fleet Enema) 135 ml RC DAILY PRN PRN Reason: Constipation Stop: 03/21/18 16:07 Vitamin A (Vitamin A & D) 5 gm TP DAILY [facility] Stop: 03/22/18 08:59 Last Admin: 02/03/18 09:45 Dose: 5 gm General: Moderate distress, Other (more awake) HEENT: Atraumatic, Mucous membr. moist/pink, Other (facial edema) Neck: Supple, +2 carotid pulse wo bruit Cardiovascular: Regular rate, Normal S1, Normal S2 Lungs: Other (decreased BS, coarse rhonchi) Abdomen: Bowel sounds, Soft Extremities: Edema, Other (less edema) Neurological: Sensation intact Skin: no Rash Psych/Mental Status: Other (obtunded) - Procedures Procedures: Procedures Procedure Code Date INSERT EMERGENCY AIRWAY 44103 01/20/18 INSERTION OF ENDOTRACHEAL AIRWAY INTO [place], VIA OPENING [id number] 01/20/18 RESPIRATORY VENTILATION, GREATER THAN 96 CONSECUTIVE HOURS [id number] 01/20/18 VENT MGMT INPAT INIT DAY 33513 01/20/18 Assessment/Plan - Problem List Patient Problems: All Active Problems ELEVATED WBC, LUNG INFILTRATES (Acute) - Assessment Assessment: LAURENCE Anuric 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 A. Fib Anemia of CD non Gap met acid yeast UTI Anasarca - Plan Plan: Lab - Result Diagrams 01/29/18 05:10 01/29/18 05:10 Current Medications Acetaminophen (Tylenol) 650 mg PO Q4H PRN PRN Reason: MILD PAIN OR TEMP >100.4 Stop: 03/21/18 16:07 Al Hydrox/Mg Hydrox/Simethicone (Maalox) 30 ml PO Q6HR PRN PRN Reason: GI DISTRESS Stop: 03/21/18 16:28 Albuterol/Ipratropium (Duoneb Neb) 3 ml HHN Q6HRT [facility] Stop: 03/30/18 00:59 Last Admin: 01/29/18 13:21 Dose: 3 ml Artificial Tears (Artificial Tears Ophth Soln) 1 drop EACH EYE Q2HR PRN PRN Reason: Dry Eye Stop: 03/27/18 09:28 Last Admin: 01/26/18 10:13 Dose: 1 drop Atorvastatin Calcium (Lipitor) 80 mg PO HS [facility] PRN Reason: Protocol Stop: 03/21/18 20:59 Last Admin: 01/28/18 20:32 Dose: 80 mg Bisacodyl (Dulcolax 10 Mg Supp) 10 mg RC DAILY PRN PRN Reason: Constipation Stop: 03/21/18 16:07 Carvedilol (Coreg) 12.5 mg PO BID [facility] Stop: 03/21/18 16:59 Last Admin: 01/29/18 08:10 Dose: 12.5 mg Chlorhexidine Gluconate (Peridex) 15 ml MM 0800,2000 [facility] Stop: 03/27/18 07:59 Last Admin: 01/29/18 08:00 Dose: 15 ml Dextrose (D50w) 50 ml IVP PRN PRN PRN Reason: HYPOGLYCEMIA Stop: 03/21/18 16:07 Diltiazem HCl (Cardizem) 60 mg PO Q6HR [facility] Stop: 03/21/18 17:59 Last Admin: 01/29/18 12:10 Dose: 60 mg Enalaprilat (Vasotec) 2.5 mg IVP Q6HR PRN PRN Reason: SBP ABOVE 160 Stop: 03/25/18 11:59 Last Admin: 01/24/18 15:13 Dose: 2.5 mg Glucagon (Glucagen) 1 mg IVP PRN PRN PRN Reason: HYPOGLYCEMIA Stop: 03/21/18 16:25 Meropenem 1 gm/ Sodium (Chloride) 100 mls @ 100 mls/hr IV Q12H [facility] Stop: 03/26/18 08:59 Last Infusion: 01/29/18 10:30 Dose: Infused Phenylephrine HCl 10 mg/ (Sodium Chloride) 250 mls @ 75 mls/hr IV TITR [facility]; 50 MCG/MIN PRN Reason: Protocol Stop: 03/25/18 20:14 Norepinephrine Bitartrate 4 mg (/ Sodium Chloride) 254 mls @ 15.24 mls/hr IV TITR [facility]; 4 MCG/MIN PRN Reason: Protocol Stop: 03/26/18 08:14 Last Titration: 01/27/18 00:22 Dose: 0 mcg/min, 0 mls/hr Potassium Chloride/Dextrose/Sod Cl (D5-0.9ns W/Kcl 20meq) 1,000 mls @ 75 mls/ hr IV .[id number] [facility] Stop: 03/28/18 14:06 Last Admin: 01/29/18 12:54 Dose: 125 mls/hr Insulin Aspart (Novolog Insulin Sliding Scale) 0 units SUBQ Q6HR [facility] PRN Reason: Protocol Stop: 03/27/18 00:00 Last Admin: 01/29/18 12:09 Dose: 2 units Magnesium Hydroxide (Milk Of Magnesia) 30 ml PO DAILY PRN PRN Reason: IF NO BM IN TWO DAYS Stop: 03/21/18 16:07 Megestrol Acetate (Megace) 400 mg PO BID [facility] Stop: 03/21/18 16:59 Last Admin: 01/29/18 08:10 Dose: 400 mg Metoprolol Tartrate (Lopressor) 5 mg IV Q4H PRN PRN Reason: Tachycardia Stop: 03/25/18 12:29 Miscellaneous (Vancomycin Iv Per Pharmacy) 1 ea MC PRN [facility] Stop: 03/25/18 17:59 Multivitamins/Vitamin C (Theragran) 1 tab PO DAILY [facility] Stop: 03/22/18 08:59 Last Admin: 01/29/18 08:10 Dose: 1 tab Ondansetron HCl (Zofran Odt) 4 mg PO Q6H PRN PRN Reason: Nausea / Vomiting Stop: 03/21/18 16:07 Pantoprazole Sodium (Protonix) 40 mg NG DAILY [facility] Stop: 03/28/18 16:59 Last Admin: 01/29/18 08:10 Dose: 40 mg Prednisone (Deltasone) 10 mg PO DAILY [facility] Stop: 03/22/18 08:59 Last Admin: 01/29/18 08:10 Dose: 10 mg Sodium Bicarbonate (Sodium Bicarbonate) 650 mg PO BID [facility] PRN Reason: Protocol Stop: 03/29/18 16:59 Last Admin: 01/29/18 08:10 Dose: 650 mg Sodium Phosphate (Fleet Enema) 135 ml RC DAILY PRN PRN Reason: Constipation Stop: 03/21/18 16:07 Vitamin A (Vitamin A & D) 5 gm TP DAILY [facility] Stop: 03/22/18 08:59 Last Admin: 01/29/18 12:14 Dose: 5 gm Lab - Result Diagrams 02/03/18 04:20 02/03/18 04:20 kidney fnc slight improvement facial/peripheral edema decrease IVF & DC K replace Ca, P04, Mg start Diflucan on top of Meropenem new Jose Maria placed today WBC up to 17.4 administer [id number] initiated on HD due to anuria, fluid retention, acidosis, hyperkalemia Hgb/Hct down to 8.8/25.4 CXR still w/ b/l small effusion now oliguric will still need dialysis due to edema Nutritional Asmnt/Malnutr-PDOC - Dietary Evaluation Malnutrition Findings (Please click <Entered> for more info): Nutritional Asmnt/Malnutrition Start: 01/21/18 16: 32 Text: Status: Complete Freq: Document 01/21/18 16:32 AMITA (Rec: 01/21/18 16:48 AMITA [email or web address]) Nutritional Asmnt/Malnutrition Patient General Information Nutritional Screening High Risk Consult Diagnosis left lung infiltrate Pertinent Medical Hx/Surgical Hx dementia, HTN, hyperlipidemia per ER notes, no H&P at this time Subjective Information Pt seen sleeping at time of visit, not able to wake up for lunch. Per [employer], pt only had cereal and scrambled eggs this morning, not able to chew the Welsh toast d/t weakness. Current Diet Order/ Nutrition Support low cholesterol 300gm Pertinent Medications D5-0.45ns, novolog, megace, theragran, piperacillin, vit A &D Pertinent Labs 01/21 BUN 32, Glucose 180, POC 142-261 01/20 A1c 5.1, POC 127-165 Nutritional Hx/Data Height 1.6 m Height (Calculated Centimeters) 160.0 Current Weight (lbs) 37.648 kg Weight (Calculated Kilograms) 37.6 Weight (Calculated Grams) 67432.2 [place] Body Weight 115 Body Mass Index (BMI) 14.7 Weight Status Underweight GI Symptoms GI Symptoms None Last BM none Difficult in: None Skin Integrity/Comment: reddened to vagina and coccyx Current %PO Poor (25-49%) Estimated Nutritional Goals Calories/Kcals/Kg 25-30 Kcals Calculated 8721-8417 Protein g/k Protein Calculated 52 Fluid: ml 1300-1560ml (1ml/kcal) Nutritional Problem 2. Problem Problem chewing difficulty Etiology weakness, sleepy Signs/Symptoms: pt need for mech soft diet 1. Problem Problem altered nutrition related lab values Etiology hyperglycemia Signs/Symptoms: Glucose 180, POC 127-261 Intervention/Recommendation Comments 1. Recommend Mech soft ground diet with Boost BID to increase nutrition intake. 2. Monitor PO intake, wt, labs and skin integrity 3. F/U as high risk in 2-3 days, 01/23-01/24 Expected Outcomes/Goals Expected Outcomes/Goals 1. PO intake to meet at least 75% of nutritional needs. 2. Wt stability, skin to remain intact, labs to approach WNL.
--- NOTE | 2018-02-03 23:31 | Infectious Disease Prog Note ---
Infectious Disease Subjective - Review of Systems Service Date: 02/03/18 Subjective: No fever, remains intubated orally. on the ventilator support. Infectious Disease Objective - Results Result Diagrams: 02/03/18 04:20 02/03/18 04:20 Recent Labs: Laboratory Last Values WBC 17.4 Th/cmm (4.8-10.8) H 02/03/18 04:20 RBC 2.86 Mil/cmm (3.80-5.20) L 02/03/18 04:20 Hgb 8.8 gm/dL (12-16) L 02/03/18 04:20 Hct 25.4 % (41.0-60) L 02/03/18 04:20 MCV 88.7 fl (81-100) 02/03/18 04:20 MCH 30.7 pg (27.0-31.0) 02/03/18 04:20 MCHC Differential 34.6 pg (28.0-36.0) 02/03/18 04:20 RDW 15.3 % (11.5-20.0) 02/03/18 04:20 Plt Count 38 Th/cmm (150-400) L 02/03/18 04:20 MPV 9.4 fl 02/03/18 04:20 Neutrophils % 89.8 % (40.0-80.0) H 02/03/18 04:20 Band Neutrophils % 5 % (0-10) 01/31/18 04:10 Lymphocytes % 3.6 % (20.0-50.0) L 02/03/18 04:20 Monocytes % 4.8 % (2.0-10.0) 02/03/18 04:20 Eosinophils % 1.2 % (0.0-5.0) 02/03/18 04:20 Basophils % 0.6 % (0.0-2.0) 02/03/18 04:20 Neutrophils (Manual) 83 % (40-80) H 01/31/18 04:10 Lymphocytes 8 % (20-50) L 01/31/18 04:10 Monocytes 4 % (2-10) 01/31/18 04:10 Eosinophils 0 % (0-5) 01/27/18 04:58 Basophils 0 % (0-3) 01/27/18 04:58 Platelet Estimate SLIGHT DECREASED (NORMAL) 01/31/18 04:10 Platelet Morphology NORMAL (NORMAL) 01/27/18 04:58 RBC Morph Micro Appear NORMAL (NORMAL) 01/27/18 04:58 Eos Smear Source URINE 01/28/18 17:10 Eos Smear Total Cells NONE SEEN (NONE SEEN) 01/28/18 17:10 PT 9.3 SECONDS (9.5-11.5) L 01/29/18 21:26 INR 0.90 (0.5-1.4) 01/29/18 21:26 PTT (Actin FS) 46.6 SECONDS (26.0-38.0) H 01/29/18 21:26 Specimen Source Arterial 01/24/18 17:45 Sample Site Left Radial 01/24/18 17:45 pH 7.41 (7.35-7.45) 01/24/18 17:45 pCO2 32.0 mmHg (35.0-45.0) L 01/24/18 17:45 pO2 397.0 mmHg (80.0-100.0) H 01/24/18 17:45 HCO3 22.3 mEq/L (20.0-26.0) 01/24/18 17:45 Base Excess -3.5 mEq/L (-3.0-3.0) L 01/24/18 17:45 O2 Saturation 100.0 % (92.0-100.0) 01/24/18 17:45 Bebo Test YES 01/24/18 17:45 Vent Rate 14 01/24/18 17:45 Inspired O2 100 01/24/18 17:45 Tidal Volume 450 01/24/18 17:45 PEEP 5 01/24/18 17:45 Pressure (ins/psv/peep) NA 01/24/18 17:45 Critical Value E.BRIDGES 01/24/18 17:45 Sodium 140 mEq/L (136-145) 02/03/18 04:20 Potassium 3.8 mEq/L (3.5-5.1) 02/03/18 04:20 Chloride 106 mEq/L (98-107) 02/03/18 04:20 Carbon Dioxide 25.2 mEq/L (21.0-31.0) 02/03/18 04:20 Anion Gap 12.6 (7.0-16.0) 02/03/18 04:20 BUN 43 mg/dL (7-25) H 02/03/18 04:20 Creatinine 1.5 mg/dL (0.6-1.2) H 02/03/18 04:20 Est GFR ( Amer) TNP 02/03/18 04:20 Est GFR (Non-Af Amer) TNP 02/03/18 04:20 BUN/Creatinine Ratio 28.7 02/03/18 04:20 Glucose 85 mg/dL (70-105) 02/03/18 04:20 POC Glucose 137 MG/DL (70 - 105) H 02/03/18 17:59 Hemoglobin A1c % 5.1 % (4.0-6.0) 01/20/18 12:15 Plasma/Ser Osmolality 287 mOsmol/kg (280-301) 01/28/18 17:45 Whole Bld Lactic Acid 1.50 mmol/L (0.60-1.99) 01/28/18 13:40 Uric Acid 5.3 mg/dL (2.3-6.6) 01/30/18 05:06 Calcium 8.7 mg/dL (8.6-10.3) 02/03/18 04:20 Phosphorus 3.3 mg/dL (2.5-5.0) 01/30/18 05:06 Magnesium 2.3 mg/dL (1.9-2.7) 01/30/18 05:06 Iron 54 ug/dL (27-139) 01/20/18 12:50 TIBC 159 ug/dL (250-450) L 01/20/18 12:50 Iron Saturation 34 % (15-55) 01/20/18 12:50 Unsaturated IBC 105 ug/dL (118-369) L 01/20/18 12:50 Ferritin 1230 ng/mL (15-150) H 01/20/18 12:50 Total Bilirubin 0.3 mg/dL (0.3-1.0) 01/29/18 05:10 Direct Bilirubin 0.07 mg/dL (0.0-0.2) 01/20/18 12:30 AST 54 U/L (13-39) H 01/29/18 05:10 ALT 93 U/L (7-52) H 01/29/18 05:10 Alkaline Phosphatase 105 U/L (34-104) H 01/29/18 05:10 Troponin I 0.03 ng/mL (0.01-0.05) 01/20/18 12:15 C-Reactive Protein 4.3 mg/dL (0.0-0.9) H 01/20/18 12:50 B-Natriuretic Peptide 185.0 pg/mL (5.0-100.0) H 01/25/18 04:20 Total Protein 3.7 gm/dL (6.0-8.3) L 01/29/18 05:10 Albumin 1.6 gm/dL (3.7-5.3) L 01/29/18 05:10 Globulin 2.1 gm/dL 01/29/18 05:10 Albumin/Globulin Ratio 0.8 (1.0-1.8) L 01/29/18 05:10 Triglycerides 97 mg/dL (<150) 01/20/18 12:15 Cholesterol 195 mg/dL (<200) 01/20/18 12:15 LDL Cholesterol Direct 152 mg/dL (75-193) 01/20/18 12:15 HDL Cholesterol 40 mg/dL (23-92) 01/20/18 12:15 Lipase 108 U/L (11-82) H 01/20/18 12:15 Free T4 1.12 ng/dL (0.82-1.77) 01/20/18 12:50 TSH 0.06 uIU/ml (0.34-5.60) L 01/20/18 12:15 Urine Source [place] 01/28/18 17:10 Urine Color YELLOW 01/28/18 17:10 Urine Clarity CLOUDY (CLEAR) H 01/28/18 17:10 Urine pH 6.0 (4.6 - 8.0) 01/28/18 17:10 Ur Specific [place] 1.020 (1.005-1.030) 01/28/18 17:10 Urine Protein 100 mg/dL (NEGATIVE) H 01/28/18 17:10 Urine Glucose (UA) NEGATIVE mg/dL (NEGATIVE) 01/28/18 17:10 Urine Ketones NEGATIVE mg/dL (NEGATIVE) 01/28/18 17:10 Urine Blood MODERATE (NEGATIVE) H 01/28/18 17:10 Urine Nitrate NEGATIVE (NEGATIVE) 01/28/18 17:10 Urine Bilirubin NEGATIVE (NEGATIVE) 01/28/18 17:10 Urine Urobilinogen 0.2 E.U./dL (0.2 - 1.0) 01/28/18 17:10 Ur Leukocyte Esterase MODERATE (NEGATIVE) H 01/28/18 17:10 Urine RBC 5-10 /hpf (0-5) H 01/28/18 17:10 Urine WBC 10-25 /hpf (0-5) H 01/28/18 17:10 Ur Epithelial Cells OCCASIONAL /lpf (FEW) 01/28/18 17:10 Urine Bacteria OCCASIONAL /hpf (NONE SEEN) 01/28/18 17:10 Urine Yeast MANY /hpf (NONE SEEN) H 01/28/18 17:10 Ur Random Sodium 56 mmol/L 01/28/18 17:10 Urine Creatinine 39.0 mg/dl (28.0-217.0) 01/28/18 17:10 Vancomycin Trough 27.8 ug/mL (10-20) H 01/26/18 23:00 Random Vancomycin 22.6 ug/mL (5.0-40.0) 02/03/18 04:20 Blood Type O POSITIVE 02/03/18 16:58 Antibody Screen NEGATIVE 02/03/18 16:58 Crossmatch See Detail 01/30/18 07:35 - Physical Exam Vitals and I&O: Vital Signs Temp 99 F 02/03/18 19:00 Pulse 77 02/03/18 23:27 Resp 18 02/03/18 19:00 BP 120/68 02/03/18 21:30 Pulse Ox 99 02/03/18 23:27 Intake & Output 02/03/18 02/03/18 02/04/18 06:59 18:59 06:59 Intake Total 722.865 890 177.597 Output Total 151 130 Balance 571.865 760 177.597 Weight (lbs) 55.338 kg 55.82 kg Intake: Intake, IV Amount 362.865 200 177.597 Meropenem 1 gm In Sodium 100 100 100 Chloride 0.9% 100 ml @ 100 mls/hr IV Q12H [facility] Rx #:[id number] Norepinephrine 4 mg In 62.865 0 77.597 Sodium Chloride 0.9% 250 ml @ 4 MCG/MIN 15.24 mls/ hr IV TITR [facility] Rx#: [id number] metroNIDAZOLE 500mg/NS 200 100 100mL 500 mg In 100 ml @ 100 mls/hr IV Q8HR [facility] Rx #:[id number] Tube Feeding 360 360 Other 330 Output: Urine 150 130 Stool 1 Other: Stool Characteristics Soft Soft Brown Brown Black Weight Source Bedscale Bedscale Active Medications: Current Medications Acetaminophen (Tylenol) 650 mg PO Q4H PRN PRN Reason: MILD PAIN OR TEMP >100.4 Stop: 03/21/18 16:07 Al Hydrox/Mg Hydrox/Simethicone (Maalox) 30 ml PO Q6HR PRN PRN Reason: GI DISTRESS Stop: 03/21/18 16:28 Albuterol/Ipratropium (Duoneb Neb) 3 ml HHN Q6HRT [facility] Stop: 03/30/18 00:59 Last Admin: 02/03/18 19:38 Dose: 3 ml Amlodipine Besylate (Norvasc) 10 mg PO DAILY [facility] Stop: 04/02/18 16:59 Last Admin: 02/03/18 09:46 Dose: Not Given Artificial Tears (Artificial Tears Ophth Soln) 1 drop EACH EYE Q2HR PRN PRN Reason: Dry Eye Stop: 03/27/18 09:28 Last Admin: 01/26/18 10:13 Dose: 1 drop Atorvastatin Calcium (Lipitor) 80 mg PO HS [facility] PRN Reason: Protocol Stop: 03/21/18 20:59 Last Admin: 02/03/18 21:42 Dose: 80 mg Bisacodyl (Dulcolax 10 Mg Supp) 10 mg RC DAILY PRN PRN Reason: Constipation Stop: 03/21/18 16:07 Budesonide (Pulmicort) 0.5 mg HHN BIDRT [facility] Stop: 04/01/18 18:59 Last Admin: 02/03/18 19:39 Dose: 0.5 mg Carvedilol (Coreg) 12.5 mg PO BID [facility] Stop: 03/21/18 16:59 Last Admin: 02/03/18 17:49 Dose: Not Given Chlorhexidine Gluconate (Peridex) 15 ml MM 0800,2000 [facility] Stop: 03/27/18 07:59 Last Admin: 02/03/18 21:57 Dose: 15 ml Dextrose (D50w) 50 ml IVP PRN PRN PRN Reason: HYPOGLYCEMIA Stop: 03/21/18 16:07 Diltiazem HCl (Cardizem) 60 mg PO Q6HR [facility] Stop: 03/21/18 17:59 Last Admin: 02/03/18 17:49 Dose: Not Given Enalaprilat (Vasotec) 2.5 mg IVP Q6HR PRN PRN Reason: SBP ABOVE 160 Stop: 03/25/18 11:59 Last Admin: 02/01/18 20:35 Dose: 2.5 mg Glucagon (Glucagen) 1 mg IVP PRN PRN PRN Reason: HYPOGLYCEMIA Stop: 03/21/18 16:25 Meropenem 1 gm/ Sodium (Chloride) 100 mls @ 100 mls/hr IV Q12H [facility] Stop: 03/26/18 08:59 Last Infusion: 02/03/18 21:54 Dose: Infused Phenylephrine HCl 10 mg/ (Sodium Chloride) 250 mls @ 75 mls/hr IV TITR [facility]; 50 MCG/MIN PRN Reason: Protocol Stop: 03/25/18 20:14 Norepinephrine Bitartrate 4 mg (/ Sodium Chloride) 254 mls @ 15.24 mls/hr IV TITR [facility]; 4 MCG/MIN PRN Reason: Protocol Stop: 03/26/18 08:14 Last Titration: 02/03/18 20:50 Dose: 0 mcg/min, 0 mls/hr Metronidazole (Flagyl) 500 mg in 100 mls @ 100 mls/hr IV Q8HR [facility] Stop: 03/31/18 20:59 Last Admin: 02/03/18 21:53 Dose: 100 mls/hr Albumin Human (Albuminar 25%) 25 gm in 100 mls @ 50 mls/hr IV X1 ONE Stop: 02/04/18 19:01 Albumin Human (Albuminar 25%) 25 gm in 100 mls @ 50 mls/hr IV X1 ONE Stop: 02/04/18 19:02 Insulin Aspart (Novolog Insulin Sliding Scale) 0 units SUBQ Q6HR [facility] PRN Reason: Protocol Stop: 03/27/18 00:00 Last Admin: 02/03/18 18:00 Dose: Not Given Losartan Potassium (Cozaar) 100 mg PO DAILY [facility] Stop: 04/02/18 16:59 Last Admin: 02/03/18 09:45 Dose: Not Given Magnesium Hydroxide (Milk Of Magnesia) 30 ml PO DAILY PRN PRN Reason: IF NO BM IN TWO DAYS Stop: 03/21/18 16:07 Megestrol Acetate (Megace) 400 mg PO BID [facility] Stop: 03/21/18 16:59 Last Admin: 02/03/18 17:45 Dose: 400 mg Metoprolol Tartrate (Lopressor) 5 mg IV Q4H PRN PRN Reason: Tachycardia Stop: 03/25/18 12:29 Miscellaneous (Vancomycin Iv Per Pharmacy) 1 ea MC PRN PRN PRN Reason: PHARMACIST TO DOSE Stop: 04/02/18 08:25 Miscellaneous (Misc Oral Tab) 1 tab PO BID [facility] Stop: 02/08/18 09:01 Last Admin: 02/03/18 17:44 Dose: 1 tab Morphine Sulfate (Morphine) 1 mg IV Q4HR PRN PRN Reason: MOD TO SEVERE PAIN Stop: 04/02/18 15:59 Multivitamins/Vitamin C (Theragran) 1 tab PO DAILY [facility] Stop: 03/22/18 08:59 Last Admin: 02/03/18 09:44 Dose: 1 tab Ondansetron HCl (Zofran Odt) 4 mg PO Q6H PRN PRN Reason: Nausea / Vomiting Stop: 03/21/18 16:07 Pantoprazole Sodium (Protonix) 40 mg NG DAILY [facility] Stop: 03/28/18 16:59 Last Admin: 02/03/18 09:43 Dose: 40 mg Prednisone (Deltasone) 10 mg PO DAILY [facility] Stop: 03/22/18 08:59 Last Admin: 02/03/18 09:43 Dose: 10 mg Sodium Bicarbonate (Sodium Bicarbonate) 650 mg PO BID [facility] PRN Reason: Protocol Stop: 03/29/18 16:59 Last Admin: 02/03/18 17:44 Dose: 650 mg Sodium Phosphate (Fleet Enema) 135 ml RC DAILY PRN PRN Reason: Constipation Stop: 03/21/18 16:07 Vitamin A (Vitamin A & D) 5 gm TP DAILY [facility] Stop: 03/22/18 08:59 Last Admin: 02/03/18 09:45 Dose: 5 gm General: no acute distress, well developed, well nourished HEENT: atraumatic, normocephalic, PERRLA, EOMI Neck: supple, no thyromegaly Cardiovascular: S1S2, regular Lungs: clear to percussion, rhonchi Abdomen: soft, no tender, no distended, no rebound Extremities: no cyanosis, no clubbing, no edema Neurological: other (obtunded) Skin: intact - Procedures Procedures: Procedures Procedure Code Date INSERT EMERGENCY AIRWAY 09345 01/20/18 INSERTION OF ENDOTRACHEAL AIRWAY INTO [place], VIA OPENING [id number] 01/20/18 RESPIRATORY VENTILATION, GREATER THAN 96 CONSECUTIVE HOURS [id number] 01/20/18 VENT MGMT INPAT INIT DAY 44726 01/20/18 Infectious Disease Assmt/Plan - Problem List Patient Problems: All Active Problems ELEVATED WBC, LUNG INFILTRATES (Acute) - Assessment Assessment: 1. Leukocytosis. suspect sepsis. 2. Pneumonia. L lung. 3. Dementia 4. S/p CP arrest. 5. Anoxic encephalopathy. 6. VDRF. 7. Increaing creatinine. LAURENCE. oliguric. 8. pulmonary aspergillosis. - Plan Plan: Continue meropenem. Continue voriconazole po ( not IV). 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 dc flagyl and vanco Nutritional Asmnt/Malnutr-PDOC - Dietary Evaluation Malnutrition Findings (Please click <Entered> for more info): Nutritional Asmnt/Malnutrition Start: 01/21/18 16: 32 Text: Status: Complete Freq: Document 01/21/18 16:32 HEN (Rec: 01/21/18 16:48 [facility] Nutritional Asmnt/Malnutrition Patient General Information Nutritional Screening High Risk Consult Diagnosis left lung infiltrate Pertinent Medical Hx/Surgical Hx dementia, HTN, hyperlipidemia per ER notes, no H&P at this time Subjective Information Pt seen sleeping at time of visit, not able to wake up for lunch. 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 Current Diet Order/ Nutrition Support low cholesterol 300gm Pertinent Medications D5-0.45ns, novolog, megace, theragran, piperacillin, vit A &D Pertinent Labs 01/21 BUN 32, Glucose 180, POC 142-261 01/20 A1c 5.1, POC 127-165 Nutritional Hx/Data Height 1.6 m Height (Calculated Centimeters) 160.0 Current Weight (lbs) 37.648 kg Weight (Calculated Kilograms) 37.6 Weight (Calculated Grams) 32407.2 [place] Body Weight 115 Body Mass Index (BMI) 14.7 Weight Status Underweight GI Symptoms GI Symptoms None Last BM none Difficult in: None Skin Integrity/Comment: reddened to vagina and coccyx Current %PO Poor (25-49%) Estimated Nutritional Goals Calories/Kcals/Kg 25-30 Kcals Calculated 3939-9187 Protein g/k Protein Calculated 52 Fluid: ml 1300-1560ml (1ml/kcal) Nutritional Problem 2. Problem Problem chewing difficulty Etiology weakness, sleepy Signs/Symptoms: pt need for mech soft diet 1. Problem Problem altered nutrition related lab values Etiology hyperglycemia Signs/Symptoms: Glucose 180, POC 127-261 Intervention/Recommendation Comments 1. Recommend Mech soft ground diet with Boost BID to increase nutrition intake. 2. Monitor PO intake, wt, labs and skin integrity 3. F/U as high risk in 2-3 days, 01/23-01/24 Expected Outcomes/Goals Expected Outcomes/Goals 1. PO intake to meet at least 75% of nutritional needs. 2. Wt stability, skin to remain intact, labs to approach WNL.
[2018-02-04] MEDS: Albuterol/Ipratropium Neb 3 ML AERS HHN SCH ×4 (00:56→19:07)
[2018-02-04 04:42] LABS: MANUAL DIFF REQUIRED? YES
[2018-02-04 04:48] LABS: HEMATOCRIT 22.6 % (41.0-60); MEAN CELL VOLUME 89.7 fl (81-100); MEAN CORPUSCULAR HEMOGLOBIN 31.1 pg (27.0-31.0); MEAN CORPUSCULAR HGB CONC 34.7 pg (28.0-36.0); MEAN PLATELET VOLUME 8.2 fl; RED BLOOD COUNT 2.52 Mil/cmm (3.80-5.20); RED CELL DISTRIBUTION WIDTH 15.3 % (11.5-20.0)
[2018-02-04 04:54] LABS: ANION GAP 10.7 (7.0-16.0); BUN - UREA NITROGEN 55 mg/dL (7-25); CALCIUM SERUM 8.6 mg/dL (8.6-10.3); CARBON DIOXIDE 27.2 mEq/L (21.0-31.0); CHLORIDE 104 mEq/L (98-107); CREATININE - SERUM 1.9 mg/dL (0.6-1.2); GLUCOSE 110 mg/dL (70-105); POTASSIUM SERUM 3.9 mEq/L (3.5-5.1); SODIUM SERUM 138 mEq/L (136-145)
[2018-02-04 04:57] LABS: HEMOGLOBIN 7.8 gm/dL (12-16); PLATELET COUNT 128 Th/cmm (150-400); WHITE BLOOD COUNT 23.5 Th/cmm (4.8-10.8)
[2018-02-04] MEDS: Diltiazem 30 mg Tab PO SCH ×5 (05:14→23:51)
[2018-02-04] MEDS: INSULIN ASPART SLIDING SCALE 100 UNITS/ML UNIT SUBQ SCH ×4 (05:16→23:55)
[2018-02-04 07:02] LABS: BAND NEUTROPHILE 14 % (0-10); LYMPHOCYTE 6 % (20-50); MONOCYTE 4 % (2-10); NEUTROPHILS 76 % (40-80); TOTAL CELLS COUNTED 100
[2018-02-04] MEDS: Multivitamin Tab PO SCH (08:40)
[2018-02-04] MEDS: Vitamin A/Vitamin D 5 gm Packet TP SCH (08:40)
[2018-02-04] MEDS: Chlorhexidine Gluconate 0.12% 15mL Mouthwash MM SCH ×2 (08:40→20:32)
[2018-02-04] MEDS: Pantoprazole 40 mg/Packet NG SCH (08:40)
[2018-02-04] MEDS: VORICONAZOLE 200 MG PO SCH ×2 (08:45→16:43)
[2018-02-04] MEDS: Meropenem 1 GM in Sodium Chloride 0.9% 100 ML IV SCH ×2 (09:00→20:31)
[2018-02-04] MEDS: Budesonide 0.5 Mg/2 mL Ud HHN SCH ×2 (09:25→19:07)
[2018-02-04 10:55] LABS: % BASOPHILS 0.2 % (0.0-2.0); % LYMPHOCYTES 4.9 % (20.0-50.0); % MONOCYTES 5.5 % (2.0-10.0); % NEUTROPHILS 88.4 % (40.0-80.0); EOSINOPHILE ABSOLUTE 0.2 Th/cmm (0.1-0.4); MEAN CELL VOLUME 89.6 fl (81-100); MEAN CORPUSCULAR HEMOGLOBIN 30.4 pg (27.0-31.0); MEAN CORPUSCULAR HGB CONC 33.9 pg (28.0-36.0); MEAN PLATELET VOLUME 7.8 fl; MONOCYTE ABSOLUTE 1.1 Th/cmm (0.3-1.0); NEUTROPHILE ABSOLUTE 17.6 Th/cmm (1.8-8.0); PLATELET COUNT 110 Th/cmm (150-400); RED BLOOD COUNT 2.18 Mil/cmm (3.80-5.20); RED CELL DISTRIBUTION WIDTH 15.7 % (11.5-20.0)
[2018-02-04 11:03] LABS: HEMATOCRIT 19.5 % (41.0-60); HEMOGLOBIN 6.6 gm/dL (12-16); WHITE BLOOD COUNT 19.9 Th/cmm (4.8-10.8)
[2018-02-04] MEDS ORDERED: Albumin 25% 25gm/100mL 25 GM/100 ML BTL IV ONE ×4 (11:26→17:03)
--- NOTE | 2018-02-04 11:49 | General Progress Note ---
Subjective - Review of Systems Service Date: 02/04/18 Subjective: stuporous today, on vent Objective - Results Result Diagrams: 02/04/18 10:35 02/04/18 04:20 Recent Labs: Laboratory Last Values WBC 19.9 Th/cmm (4.8-10.8) H 02/04/18 10:35 RBC 2.18 Mil/cmm (3.80-5.20) L 02/04/18 10:35 Hgb 6.6 gm/dL (12-16) L* 02/04/18 10:35 Hct 19.5 % (41.0-60) L* 02/04/18 10:35 MCV 89.6 fl (81-100) 02/04/18 10:35 MCH 30.4 pg (27.0-31.0) 02/04/18 10:35 MCHC Differential 33.9 pg (28.0-36.0) 02/04/18 10:35 RDW 15.7 % (11.5-20.0) 02/04/18 10:35 Plt Count 110 Th/cmm (150-400) L 02/04/18 10:35 MPV 7.8 fl 02/04/18 10:35 Neutrophils % 88.4 % (40.0-80.0) H 02/04/18 10:35 Band Neutrophils % 14 % (0-10) H 02/04/18 04:20 Lymphocytes % 4.9 % (20.0-50.0) L 02/04/18 10:35 Monocytes % 5.5 % (2.0-10.0) 02/04/18 10:35 Eosinophils % 1.0 % (0.0-5.0) 02/04/18 10:35 Basophils % 0.2 % (0.0-2.0) 02/04/18 10:35 Neutrophils (Manual) 76 % (40-80) 02/04/18 04:20 Lymphocytes 6 % (20-50) L 02/04/18 04:20 Monocytes 4 % (2-10) 02/04/18 04:20 Eosinophils 0 % (0-5) 01/27/18 04:58 Basophils 0 % (0-3) 01/27/18 04:58 Platelet Estimate SLIGHT DECREASED (NORMAL) 01/31/18 04:10 Platelet Morphology NORMAL (NORMAL) 01/27/18 04:58 RBC Morph Micro Appear NORMAL (NORMAL) 01/27/18 04:58 Eos Smear Source URINE 01/28/18 17:10 Eos Smear Total Cells NONE SEEN (NONE SEEN) 01/28/18 17:10 PT 9.3 SECONDS (9.5-11.5) L 01/29/18 21:26 INR 0.90 (0.5-1.4) 01/29/18 21:26 PTT (Actin FS) 46.6 SECONDS (26.0-38.0) H 01/29/18 21:26 Specimen Source Arterial 01/24/18 17:45 Sample Site Left Radial 01/24/18 17:45 pH 7.41 (7.35-7.45) 01/24/18 17:45 pCO2 32.0 mmHg (35.0-45.0) L 01/24/18 17:45 pO2 397.0 mmHg (80.0-100.0) H 01/24/18 17:45 HCO3 22.3 mEq/L (20.0-26.0) 01/24/18 17:45 Base Excess -3.5 mEq/L (-3.0-3.0) L 01/24/18 17:45 O2 Saturation 100.0 % (92.0-100.0) 01/24/18 17:45 Bebo Test YES 01/24/18 17:45 Vent Rate 14 01/24/18 17:45 Inspired O2 100 01/24/18 17:45 Tidal Volume 450 01/24/18 17:45 PEEP 5 01/24/18 17:45 Pressure (ins/psv/peep) NA 01/24/18 17:45 Critical Value E.BRIDGES 01/24/18 17:45 Sodium 138 mEq/L (136-145) 02/04/18 04:20 Potassium 3.9 mEq/L (3.5-5.1) 02/04/18 04:20 Chloride 104 mEq/L (98-107) 02/04/18 04:20 Carbon Dioxide 27.2 mEq/L (21.0-31.0) 02/04/18 04:20 Anion Gap 10.7 (7.0-16.0) 02/04/18 04:20 BUN 55 mg/dL (7-25) H 02/04/18 04:20 Creatinine 1.9 mg/dL (0.6-1.2) H 02/04/18 04:20 Est GFR ( Amer) TNP 02/04/18 04:20 Est GFR (Non-Af Amer) TNP 02/04/18 04:20 BUN/Creatinine Ratio 28.9 02/04/18 04:20 Glucose 110 mg/dL (70-105) H 02/04/18 04:20 POC Glucose 118 MG/DL (70 - 105) H 02/04/18 05:11 Hemoglobin A1c % 5.1 % (4.0-6.0) 01/20/18 12:15 Plasma/Ser Osmolality 287 mOsmol/kg (280-301) 01/28/18 17:45 Whole Bld Lactic Acid 1.50 mmol/L (0.60-1.99) 01/28/18 13:40 Uric Acid 5.3 mg/dL (2.3-6.6) 01/30/18 05:06 Calcium 8.6 mg/dL (8.6-10.3) 02/04/18 04:20 Phosphorus 3.3 mg/dL (2.5-5.0) 01/30/18 05:06 Magnesium 2.3 mg/dL (1.9-2.7) 01/30/18 05:06 Iron 54 ug/dL (27-139) 01/20/18 12:50 TIBC 159 ug/dL (250-450) L 01/20/18 12:50 Iron Saturation 34 % (15-55) 01/20/18 12:50 Unsaturated IBC 105 ug/dL (118-369) L 01/20/18 12:50 Ferritin 1230 ng/mL (15-150) H 01/20/18 12:50 Total Bilirubin 0.3 mg/dL (0.3-1.0) 01/29/18 05:10 Direct Bilirubin 0.07 mg/dL (0.0-0.2) 01/20/18 12:30 AST 54 U/L (13-39) H 01/29/18 05:10 ALT 93 U/L (7-52) H 01/29/18 05:10 Alkaline Phosphatase 105 U/L (34-104) H 01/29/18 05:10 Troponin I 0.03 ng/mL (0.01-0.05) 01/20/18 12:15 C-Reactive Protein 4.3 mg/dL (0.0-0.9) H 01/20/18 12:50 B-Natriuretic Peptide 185.0 pg/mL (5.0-100.0) H 01/25/18 04:20 Total Protein 3.7 gm/dL (6.0-8.3) L 01/29/18 05:10 Albumin 1.6 gm/dL (3.7-5.3) L 01/29/18 05:10 Globulin 2.1 gm/dL 01/29/18 05:10 Albumin/Globulin Ratio 0.8 (1.0-1.8) L 01/29/18 05:10 Triglycerides 97 mg/dL (<150) 01/20/18 12:15 Cholesterol 195 mg/dL (<200) 01/20/18 12:15 LDL Cholesterol Direct 152 mg/dL (75-193) 01/20/18 12:15 HDL Cholesterol 40 mg/dL (23-92) 01/20/18 12:15 Lipase 108 U/L (11-82) H 01/20/18 12:15 Free T4 1.12 ng/dL (0.82-1.77) 01/20/18 12:50 TSH 0.06 uIU/ml (0.34-5.60) L 01/20/18 12:15 Urine Source [place] 01/28/18 17:10 Urine Color YELLOW 01/28/18 17:10 Urine Clarity CLOUDY (CLEAR) H 01/28/18 17:10 Urine pH 6.0 (4.6 - 8.0) 01/28/18 17:10 Ur Specific [place] 1.020 (1.005-1.030) 01/28/18 17:10 Urine Protein 100 mg/dL (NEGATIVE) H 01/28/18 17:10 Urine Glucose (UA) NEGATIVE mg/dL (NEGATIVE) 01/28/18 17:10 Urine Ketones NEGATIVE mg/dL (NEGATIVE) 01/28/18 17:10 Urine Blood MODERATE (NEGATIVE) H 01/28/18 17:10 Urine Nitrate NEGATIVE (NEGATIVE) 01/28/18 17:10 Urine Bilirubin NEGATIVE (NEGATIVE) 01/28/18 17:10 Urine Urobilinogen 0.2 E.U./dL (0.2 - 1.0) 01/28/18 17:10 Ur Leukocyte Esterase MODERATE (NEGATIVE) H 01/28/18 17:10 Urine RBC 5-10 /hpf (0-5) H 01/28/18 17:10 Urine WBC 10-25 /hpf (0-5) H 01/28/18 17:10 Ur Epithelial Cells OCCASIONAL /lpf (FEW) 01/28/18 17:10 Urine Bacteria OCCASIONAL /hpf (NONE SEEN) 01/28/18 17:10 Urine Yeast MANY /hpf (NONE SEEN) H 01/28/18 17:10 Ur Random Sodium 56 mmol/L 01/28/18 17:10 Urine Creatinine 39.0 mg/dl (28.0-217.0) 01/28/18 17:10 Vancomycin Trough 27.8 ug/mL (10-20) H 01/26/18 23:00 Random Vancomycin 22.6 ug/mL (5.0-40.0) 02/03/18 04:20 Blood Type O POSITIVE 02/03/18 16:58 Antibody Screen NEGATIVE 02/03/18 16:58 Crossmatch See Detail 02/03/18 16:58 - Physical Exam Vitals and I&O: Vital Signs Temp 98.8 F 02/04/18 06:00 Pulse 82 02/04/18 07:07 Resp 18 02/04/18 07:00 BP 122/66 02/04/18 07:00 Pulse Ox 100 02/04/18 07:07 Intake & Output 02/03/18 02/04/18 02/04/18 18:59 06:59 18:59 Intake Total 890 1187.597 Output Total 130 120 Balance 760 1067.597 Weight (lbs) 55.82 kg 55.792 kg Intake: Intake, IV Amount 200 277.597 Meropenem 1 gm In Sodium 100 100 Chloride 0.9% 100 ml @ 100 mls/hr IV Q12H [facility] Rx #:[id number] Norepinephrine 4 mg In 0 77.597 Sodium Chloride 0.9% 250 ml @ 4 MCG/MIN 15.24 mls/ hr IV TITR [facility] Rx#: [id number] metroNIDAZOLE 500mg/NS 100 100 100mL 500 mg In 100 ml @ 100 mls/hr IV Q8HR [facility] Rx #:[id number] Tube Feeding 360 360 Blood Product 350 Other 330 200 Output: Urine 130 120 Other: # Bowel Movements 2 Stool Characteristics Soft Brown Weight Source Bedscale Bedscale Active Medications: Current Medications Acetaminophen (Tylenol) 650 mg PO Q4H PRN PRN Reason: MILD PAIN OR TEMP >100.4 Stop: 03/21/18 16:07 Al Hydrox/Mg Hydrox/Simethicone (Maalox) 30 ml PO Q6HR PRN PRN Reason: GI DISTRESS Stop: 03/21/18 16:28 Albuterol/Ipratropium (Duoneb Neb) 3 ml HHN Q6HRT [facility] Stop: 03/30/18 00:59 Last Admin: 02/04/18 09:19 Dose: 3 ml Amlodipine Besylate (Norvasc) 10 mg PO DAILY [facility] Stop: 04/02/18 16:59 Last Admin: 02/03/18 09:46 Dose: Not Given Artificial Tears (Artificial Tears Ophth Soln) 1 drop EACH EYE Q2HR PRN PRN Reason: Dry Eye Stop: 03/27/18 09:28 Last Admin: 01/26/18 10:13 Dose: 1 drop Atorvastatin Calcium (Lipitor) 80 mg PO HS [facility] PRN Reason: Protocol Stop: 03/21/18 20:59 Last Admin: 02/03/18 21:42 Dose: 80 mg Bisacodyl (Dulcolax 10 Mg Supp) 10 mg RC DAILY PRN PRN Reason: Constipation Stop: 03/21/18 16:07 Budesonide (Pulmicort) 0.5 mg HHN BIDRT [facility] Stop: 04/01/18 18:59 Last Admin: 02/04/18 09:25 Dose: 0.5 mg Carvedilol (Coreg) 12.5 mg PO BID [facility] Stop: 03/21/18 16:59 Last Admin: 02/03/18 17:49 Dose: Not Given Chlorhexidine Gluconate (Peridex) 15 ml MM 0800,2000 [facility] Stop: 03/27/18 07:59 Last Admin: 02/03/18 21:57 Dose: 15 ml Dextrose (D50w) 50 ml IVP PRN PRN PRN Reason: HYPOGLYCEMIA Stop: 03/21/18 16:07 Diltiazem HCl (Cardizem) 60 mg PO Q6HR [facility] Stop: 03/21/18 17:59 Last Admin: 02/04/18 05:14 Dose: Not Given Enalaprilat (Vasotec) 2.5 mg IVP Q6HR PRN PRN Reason: SBP ABOVE 160 Stop: 03/25/18 11:59 Last Admin: 02/01/18 20:35 Dose: 2.5 mg Glucagon (Glucagen) 1 mg IVP PRN PRN PRN Reason: HYPOGLYCEMIA Stop: 03/21/18 16:25 Meropenem 1 gm/ Sodium (Chloride) 100 mls @ 100 mls/hr IV Q12H [facility] Stop: 03/26/18 08:59 Last Infusion: 02/03/18 21:54 Dose: Infused Phenylephrine HCl 10 mg/ (Sodium Chloride) 250 mls @ 75 mls/hr IV TITR [facility]; 50 MCG/MIN PRN Reason: Protocol Stop: 03/25/18 20:14 Norepinephrine Bitartrate 4 mg (/ Sodium Chloride) 254 mls @ 15.24 mls/hr IV TITR [facility]; 4 MCG/MIN PRN Reason: Protocol Stop: 03/26/18 08:14 Last Titration: 02/03/18 20:50 Dose: 0 mcg/min, 0 mls/hr Albumin Human (Albuminar 25%) 25 gm in 100 mls @ 50 mls/hr IV X1 ONE Stop: 02/04/18 13:29 Last Admin: 02/04/18 11:38 Dose: 50 mls/hr Albumin Human (Albuminar 25%) 25 gm in 100 mls @ 50 mls/hr IV X1 ONE Stop: 02/04/18 13:24 Last Admin: 02/04/18 11:42 Dose: 50 mls/hr Insulin Aspart (Novolog Insulin Sliding Scale) 0 units SUBQ Q6HR [facility] PRN Reason: Protocol Stop: 03/27/18 00:00 Last Admin: 02/04/18 11:38 Dose: Not Given Losartan Potassium (Cozaar) 100 mg PO DAILY [facility] Stop: 04/02/18 16:59 Last Admin: 02/03/18 09:45 Dose: Not Given Magnesium Hydroxide (Milk Of Magnesia) 30 ml PO DAILY PRN PRN Reason: IF NO BM IN TWO DAYS Stop: 03/21/18 16:07 Megestrol Acetate (Megace) 400 mg PO BID [facility] Stop: 03/21/18 16:59 Last Admin: 02/03/18 17:45 Dose: 400 mg Metoprolol Tartrate (Lopressor) 5 mg IV Q4H PRN PRN Reason: Tachycardia Stop: 03/25/18 12:29 Miscellaneous (Misc Oral Tab) 1 tab PO BID [facility] Stop: 02/08/18 09:01 Last Admin: 02/03/18 17:44 Dose: 1 tab Morphine Sulfate (Morphine) 1 mg IV Q4HR PRN PRN Reason: MOD TO SEVERE PAIN Stop: 04/02/18 15:59 Multivitamins/Vitamin C (Theragran) 1 tab PO DAILY [facility] Stop: 03/22/18 08:59 Last Admin: 02/03/18 09:44 Dose: 1 tab Ondansetron HCl (Zofran Odt) 4 mg PO Q6H PRN PRN Reason: Nausea / Vomiting Stop: 03/21/18 16:07 Pantoprazole Sodium (Protonix) 40 mg NG DAILY [facility] Stop: 03/28/18 16:59 Last Admin: 02/03/18 09:43 Dose: 40 mg Prednisone (Deltasone) 10 mg PO DAILY [facility] Stop: 03/22/18 08:59 Last Admin: 02/03/18 09:43 Dose: 10 mg Sodium Bicarbonate (Sodium Bicarbonate) 650 mg PO BID [facility] PRN Reason: Protocol Stop: 03/29/18 16:59 Last Admin: 02/03/18 17:44 Dose: 650 mg Sodium Phosphate (Fleet Enema) 135 ml RC DAILY PRN PRN Reason: Constipation Stop: 03/21/18 16:07 Vitamin A (Vitamin A & D) 5 gm TP DAILY [facility] Stop: 03/22/18 08:59 Last Admin: 02/03/18 09:45 Dose: 5 gm General: Mild distress HEENT: Atraumatic, Mucous membr. moist/pink, Other (facial edema) Neck: Supple, +2 carotid pulse wo bruit Cardiovascular: Regular rate, Normal S1, Normal S2 Lungs: Other (decreased BS, coarse rhonchi) Abdomen: Bowel sounds, Soft Extremities: Edema, Other (less edema) Neurological: Sensation intact Skin: no Rash Psych/Mental Status: Other (obtunded) - Procedures Procedures: Procedures Procedure Code Date INSERT EMERGENCY AIRWAY 35399 01/20/18 INSERTION OF ENDOTRACHEAL AIRWAY INTO [place], VIA OPENING [id number] 01/20/18 RESPIRATORY VENTILATION, GREATER THAN 96 CONSECUTIVE HOURS [id number] 01/20/18 VENT MGMT INPAT INIT DAY 42618 01/20/18 Assessment/Plan - Problem List Patient Problems: All Active Problems ELEVATED WBC, LUNG INFILTRATES (Acute) - Assessment Assessment: LAURENCE Anuric 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 A. Fib Anemia of acute on CD non Gap met acid yeast UTI Anasarca - Plan Plan: Lab - Result Diagrams 01/29/18 05:10 01/29/18 05:10 Current Medications Acetaminophen (Tylenol) 650 mg PO Q4H PRN PRN Reason: MILD PAIN OR TEMP >100.4 Stop: 03/21/18 16:07 Al Hydrox/Mg Hydrox/Simethicone (Maalox) 30 ml PO Q6HR PRN PRN Reason: GI DISTRESS Stop: 03/21/18 16:28 Albuterol/Ipratropium (Duoneb Neb) 3 ml HHN Q6HRT [facility] Stop: 03/30/18 00:59 Last Admin: 01/29/18 13:21 Dose: 3 ml Artificial Tears (Artificial Tears Ophth Soln) 1 drop EACH EYE Q2HR PRN PRN Reason: Dry Eye Stop: 03/27/18 09:28 Last Admin: 01/26/18 10:13 Dose: 1 drop Atorvastatin Calcium (Lipitor) 80 mg PO HS [facility] PRN Reason: Protocol Stop: 03/21/18 20:59 Last Admin: 01/28/18 20:32 Dose: 80 mg Bisacodyl (Dulcolax 10 Mg Supp) 10 mg RC DAILY PRN PRN Reason: Constipation Stop: 03/21/18 16:07 Carvedilol (Coreg) 12.5 mg PO BID [facility] Stop: 03/21/18 16:59 Last Admin: 01/29/18 08:10 Dose: 12.5 mg Chlorhexidine Gluconate (Peridex) 15 ml MM 0800,2000 [facility] Stop: 03/27/18 07:59 Last Admin: 01/29/18 08:00 Dose: 15 ml Dextrose (D50w) 50 ml IVP PRN PRN PRN Reason: HYPOGLYCEMIA Stop: 03/21/18 16:07 Diltiazem HCl (Cardizem) 60 mg PO Q6HR [facility] Stop: 03/21/18 17:59 Last Admin: 01/29/18 12:10 Dose: 60 mg Enalaprilat (Vasotec) 2.5 mg IVP Q6HR PRN PRN Reason: SBP ABOVE 160 Stop: 03/25/18 11:59 Last Admin: 01/24/18 15:13 Dose: 2.5 mg Glucagon (Glucagen) 1 mg IVP PRN PRN PRN Reason: HYPOGLYCEMIA Stop: 03/21/18 16:25 Meropenem 1 gm/ Sodium (Chloride) 100 mls @ 100 mls/hr IV Q12H [facility] Stop: 03/26/18 08:59 Last Infusion: 01/29/18 10:30 Dose: Infused Phenylephrine HCl 10 mg/ (Sodium Chloride) 250 mls @ 75 mls/hr IV TITR [facility]; 50 MCG/MIN PRN Reason: Protocol Stop: 03/25/18 20:14 Norepinephrine Bitartrate 4 mg (/ Sodium Chloride) 254 mls @ 15.24 mls/hr IV TITR [facility]; 4 MCG/MIN PRN Reason: Protocol Stop: 03/26/18 08:14 Last Titration: 01/27/18 00:22 Dose: 0 mcg/min, 0 mls/hr Potassium Chloride/Dextrose/Sod Cl (D5-0.9ns W/Kcl 20meq) 1,000 mls @ 75 mls/ hr IV .[id number] [facility] Stop: 03/28/18 14:06 Last Admin: 01/29/18 12:54 Dose: 125 mls/hr Insulin Aspart (Novolog Insulin Sliding Scale) 0 units SUBQ Q6HR [facility] PRN Reason: Protocol Stop: 03/27/18 00:00 Last Admin: 01/29/18 12:09 Dose: 2 units Magnesium Hydroxide (Milk Of Magnesia) 30 ml PO DAILY PRN PRN Reason: IF NO BM IN TWO DAYS Stop: 03/21/18 16:07 Megestrol Acetate (Megace) 400 mg PO BID [facility] Stop: 03/21/18 16:59 Last Admin: 01/29/18 08:10 Dose: 400 mg Metoprolol Tartrate (Lopressor) 5 mg IV Q4H PRN PRN Reason: Tachycardia Stop: 03/25/18 12:29 Miscellaneous (Vancomycin Iv Per Pharmacy) 1 ea MC PRN [facility] Stop: 03/25/18 17:59 Multivitamins/Vitamin C (Theragran) 1 tab PO DAILY [facility] Stop: 03/22/18 08:59 Last Admin: 01/29/18 08:10 Dose: 1 tab Ondansetron HCl (Zofran Odt) 4 mg PO Q6H PRN PRN Reason: Nausea / Vomiting Stop: 03/21/18 16:07 Pantoprazole Sodium (Protonix) 40 mg NG DAILY [facility] Stop: 03/28/18 16:59 Last Admin: 01/29/18 08:10 Dose: 40 mg Prednisone (Deltasone) 10 mg PO DAILY [facility] Stop: 03/22/18 08:59 Last Admin: 01/29/18 08:10 Dose: 10 mg Sodium Bicarbonate (Sodium Bicarbonate) 650 mg PO BID [facility] PRN Reason: Protocol Stop: 03/29/18 16:59 Last Admin: 01/29/18 08:10 Dose: 650 mg Sodium Phosphate (Fleet Enema) 135 ml RC DAILY PRN PRN Reason: Constipation Stop: 03/21/18 16:07 Vitamin A (Vitamin A & D) 5 gm TP DAILY [facility] Stop: 03/22/18 08:59 Last Admin: 01/29/18 12:14 Dose: 5 Lab - Result Diagrams 02/04/18 10:35 02/04/18 04:20 kidney fnc slight improvement facial/peripheral edema decrease IVF & DC K replace Ca, P04, Mg start Diflucan on top of Meropenem new Jose Maria placed today WBC up to 19.9 administer [id number] initiated on HD due to anuria, fluid retention, acidosis, hyperkalemia Hgb/Hct down to 6.6/19.5, transfuse 3 U PRBC w/dialysis CXR still w/ b/l small effusion now oliguric will still need dialysis due to edema Nutritional Asmnt/Malnutr-PDOC - Dietary Evaluation Malnutrition Findings (Please click <Entered> for more info): Nutritional Asmnt/Malnutrition Start: 01/21/18 16: 32 Text: Status: Complete Freq: Document 01/21/18 16:32 JONOG (Rec: 01/21/18 16:48 [id number]) Nutritional Asmnt/Malnutrition Patient General Information Nutritional Screening High Risk Consult Diagnosis left lung infiltrate Pertinent Medical Hx/Surgical Hx dementia, HTN, hyperlipidemia per ER notes, no H&P at this time Subjective Information Pt seen sleeping at time of visit, not able to wake up for lunch. 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 Current Diet Order/ Nutrition Support low cholesterol 300gm Pertinent Medications D5-0.45ns, novolog, megace, theragran, piperacillin, vit A &D Pertinent Labs 01/21 BUN 32, Glucose 180, POC 142-261 01/20 A1c 5.1, POC 127-165 Nutritional Hx/Data Height 1.6 m Height (Calculated Centimeters) 160.0 Current Weight (lbs) 37.648 kg Weight (Calculated Kilograms) 37.6 Weight (Calculated Grams) 44163.2 Davy Body Weight 115 Body Mass Index (BMI) 14.7 Weight Status Underweight GI Symptoms GI Symptoms None Last BM none Difficult in: None Skin Integrity/Comment: reddened to vagina and coccyx Current %PO Poor (25-49%) Estimated Nutritional Goals Calories/Kcals/Kg 25-30 Kcals Calculated 0009-5025 Protein g/k Protein Calculated 52 Fluid: ml 1300-1560ml (1ml/kcal) Nutritional Problem 2. Problem Problem chewing difficulty Etiology weakness, sleepy Signs/Symptoms: pt need for mech soft diet 1. Problem Problem altered nutrition related lab values Etiology hyperglycemia Signs/Symptoms: Glucose 180, POC 127-261 Intervention/Recommendation Comments 1. Recommend Mech soft ground diet with Boost BID to increase nutrition intake. 2. Monitor PO intake, wt, labs and skin integrity 3. F/U as high risk in 2-3 days, 01/23-01/24 Expected Outcomes/Goals Expected Outcomes/Goals 1. PO intake to meet at least 75% of nutritional needs. 2. Wt stability, skin to remain intact, labs to approach WNL.
--- NOTE | 2018-02-04 15:23 | General Progress Note ---
Subjective - Review of Systems Events since last encounter: on vent no acute distress Objective - Results Result Diagrams: 02/04/18 10:35 02/04/18 04:20 Recent Labs: Laboratory Last Values WBC 19.9 Th/cmm (4.8-10.8) H 02/04/18 10:35 RBC 2.18 Mil/cmm (3.80-5.20) L 02/04/18 10:35 Hgb 6.6 gm/dL (12-16) L* 02/04/18 10:35 Hct 19.5 % (41.0-60) L* 02/04/18 10:35 MCV 89.6 fl (81-100) 02/04/18 10:35 MCH 30.4 pg (27.0-31.0) 02/04/18 10:35 MCHC Differential 33.9 pg (28.0-36.0) 02/04/18 10:35 RDW 15.7 % (11.5-20.0) 02/04/18 10:35 Plt Count 110 Th/cmm (150-400) L 02/04/18 10:35 MPV 7.8 fl 02/04/18 10:35 Neutrophils % 88.4 % (40.0-80.0) H 02/04/18 10:35 Band Neutrophils % 14 % (0-10) H 02/04/18 04:20 Lymphocytes % 4.9 % (20.0-50.0) L 02/04/18 10:35 Monocytes % 5.5 % (2.0-10.0) 02/04/18 10:35 Eosinophils % 1.0 % (0.0-5.0) 02/04/18 10:35 Basophils % 0.2 % (0.0-2.0) 02/04/18 10:35 Neutrophils (Manual) 76 % (40-80) 02/04/18 04:20 Lymphocytes 6 % (20-50) L 02/04/18 04:20 Monocytes 4 % (2-10) 02/04/18 04:20 Eosinophils 0 % (0-5) 01/27/18 04:58 Basophils 0 % (0-3) 01/27/18 04:58 Platelet Estimate SLIGHT DECREASED (NORMAL) 01/31/18 04:10 Platelet Morphology NORMAL (NORMAL) 01/27/18 04:58 RBC Morph Micro Appear NORMAL (NORMAL) 01/27/18 04:58 Eos Smear Source URINE 01/28/18 17:10 Eos Smear Total Cells NONE SEEN (NONE SEEN) 01/28/18 17:10 PT 9.3 SECONDS (9.5-11.5) L 01/29/18 21:26 INR 0.90 (0.5-1.4) 01/29/18 21:26 PTT (Actin FS) 46.6 SECONDS (26.0-38.0) H 01/29/18 21:26 Specimen Source Arterial 01/24/18 17:45 Sample Site Left Radial 01/24/18 17:45 pH 7.41 (7.35-7.45) 01/24/18 17:45 pCO2 32.0 mmHg (35.0-45.0) L 01/24/18 17:45 pO2 397.0 mmHg (80.0-100.0) H 01/24/18 17:45 HCO3 22.3 mEq/L (20.0-26.0) 01/24/18 17:45 Base Excess -3.5 mEq/L (-3.0-3.0) L 01/24/18 17:45 O2 Saturation 100.0 % (92.0-100.0) 01/24/18 17:45 Bebo Test YES 01/24/18 17:45 Vent Rate 14 01/24/18 17:45 Inspired O2 100 01/24/18 17:45 Tidal Volume 450 01/24/18 17:45 PEEP 5 01/24/18 17:45 Pressure (ins/psv/peep) NA 01/24/18 17:45 Critical Value E.BRIDGES 01/24/18 17:45 Sodium 138 mEq/L (136-145) 02/04/18 04:20 Potassium 3.9 mEq/L (3.5-5.1) 02/04/18 04:20 Chloride 104 mEq/L (98-107) 02/04/18 04:20 Carbon Dioxide 27.2 mEq/L (21.0-31.0) 02/04/18 04:20 Anion Gap 10.7 (7.0-16.0) 02/04/18 04:20 BUN 55 mg/dL (7-25) H 02/04/18 04:20 Creatinine 1.9 mg/dL (0.6-1.2) H 02/04/18 04:20 Est GFR ( Amer) TNP 02/04/18 04:20 Est GFR (Non-Af Amer) TNP 02/04/18 04:20 BUN/Creatinine Ratio 28.9 02/04/18 04:20 Glucose 110 mg/dL (70-105) H 02/04/18 04:20 POC Glucose 148 MG/DL (70 - 105) H 02/04/18 11:37 Hemoglobin A1c % 5.1 % (4.0-6.0) 01/20/18 12:15 Plasma/Ser Osmolality 287 mOsmol/kg (280-301) 01/28/18 17:45 Whole Bld Lactic Acid 1.50 mmol/L (0.60-1.99) 01/28/18 13:40 Uric Acid 5.3 mg/dL (2.3-6.6) 01/30/18 05:06 Calcium 8.6 mg/dL (8.6-10.3) 02/04/18 04:20 Phosphorus 3.3 mg/dL (2.5-5.0) 01/30/18 05:06 Magnesium 2.3 mg/dL (1.9-2.7) 01/30/18 05:06 Iron 54 ug/dL (27-139) 01/20/18 12:50 TIBC 159 ug/dL (250-450) L 01/20/18 12:50 Iron Saturation 34 % (15-55) 01/20/18 12:50 Unsaturated IBC 105 ug/dL (118-369) L 01/20/18 12:50 Ferritin 1230 ng/mL (15-150) H 01/20/18 12:50 Total Bilirubin 0.3 mg/dL (0.3-1.0) 01/29/18 05:10 Direct Bilirubin 0.07 mg/dL (0.0-0.2) 01/20/18 12:30 AST 54 U/L (13-39) H 01/29/18 05:10 ALT 93 U/L (7-52) H 01/29/18 05:10 Alkaline Phosphatase 105 U/L (34-104) H 01/29/18 05:10 Troponin I 0.03 ng/mL (0.01-0.05) 01/20/18 12:15 C-Reactive Protein 4.3 mg/dL (0.0-0.9) H 01/20/18 12:50 B-Natriuretic Peptide 185.0 pg/mL (5.0-100.0) H 01/25/18 04:20 Total Protein 3.7 gm/dL (6.0-8.3) L 01/29/18 05:10 Albumin 1.6 gm/dL (3.7-5.3) L 01/29/18 05:10 Globulin 2.1 gm/dL 01/29/18 05:10 Albumin/Globulin Ratio 0.8 (1.0-1.8) L 01/29/18 05:10 Triglycerides 97 mg/dL (<150) 01/20/18 12:15 Cholesterol 195 mg/dL (<200) 01/20/18 12:15 LDL Cholesterol Direct 152 mg/dL (75-193) 01/20/18 12:15 HDL Cholesterol 40 mg/dL (23-92) 01/20/18 12:15 Lipase 108 U/L (11-82) H 01/20/18 12:15 Free T4 1.12 ng/dL (0.82-1.77) 01/20/18 12:50 TSH 0.06 uIU/ml (0.34-5.60) L 01/20/18 12:15 Urine Source [place]EN [place] 01/28/18 17:10 Urine Color YELLOW 01/28/18 17:10 Urine Clarity CLOUDY (CLEAR) H 01/28/18 17:10 Urine pH 6.0 (4.6 - 8.0) 01/28/18 17:10 Ur Specific Mobile 1.020 (1.005-1.030) 01/28/18 17:10 Urine Protein 100 mg/dL (NEGATIVE) H 01/28/18 17:10 Urine Glucose (UA) NEGATIVE mg/dL (NEGATIVE) 01/28/18 17:10 Urine Ketones NEGATIVE mg/dL (NEGATIVE) 01/28/18 17:10 Urine Blood MODERATE (NEGATIVE) H 01/28/18 17:10 Urine Nitrate NEGATIVE (NEGATIVE) 01/28/18 17:10 Urine Bilirubin NEGATIVE (NEGATIVE) 01/28/18 17:10 Urine Urobilinogen 0.2 E.U./dL (0.2 - 1.0) 01/28/18 17:10 Ur Leukocyte Esterase MODERATE (NEGATIVE) H 01/28/18 17:10 Urine RBC 5-10 /hpf (0-5) H 01/28/18 17:10 Urine WBC 10-25 /hpf (0-5) H 01/28/18 17:10 Ur Epithelial Cells OCCASIONAL /lpf (FEW) 01/28/18 17:10 Urine Bacteria OCCASIONAL /hpf (NONE SEEN) 01/28/18 17:10 Urine Yeast MANY /hpf (NONE SEEN) H 01/28/18 17:10 Ur Random Sodium 56 mmol/L 01/28/18 17:10 Urine Creatinine 39.0 mg/dl (28.0-217.0) 01/28/18 17:10 Vancomycin Trough 27.8 ug/mL (10-20) H 01/26/18 23:00 Random Vancomycin 22.6 ug/mL (5.0-40.0) 02/03/18 04:20 Blood Type O POSITIVE 02/03/18 16:58 Antibody Screen NEGATIVE 02/03/18 16:58 Crossmatch See Detail 02/03/18 16:58 - Physical Exam Vitals and I&O: Vital Signs Temp 97.6 F 02/04/18 14:00 Pulse 99 02/04/18 15:02 Resp 18 02/04/18 14:00 BP 144/73 02/04/18 14:00 Pulse Ox 100 02/04/18 15:02 Intake & Output 02/03/18 02/04/18 02/04/18 18:59 06:59 18:59 Intake Total 890 1187.597 100 Output Total 130 120 Balance 760 1067.597 100 Weight (lbs) 55.82 kg 55.792 kg Intake: Intake, IV Amount 200 277.597 100 Meropenem 1 gm In Sodium 100 100 100 Chloride 0.9% 100 ml @ 100 mls/hr IV Q12H [facility] Rx #:[id number] Norepinephrine 4 mg In 0 77.597 Sodium Chloride 0.9% 250 ml @ 4 MCG/MIN 15.24 mls/ hr IV TITR [facility] Rx#: [id number] metroNIDAZOLE 500mg/NS 100 100 100mL 500 mg In 100 ml @ 100 mls/hr IV Q8HR [facility] Rx #:[id number] Tube Feeding 360 360 Blood Product 350 Other 330 200 Output: Urine 130 120 Other: # Bowel Movements 2 Stool Characteristics Soft Soft Brown Brown Weight Source Bedscale Bedscale Active Medications: Current Medications Acetaminophen (Tylenol) 650 mg PO Q4H PRN PRN Reason: MILD PAIN OR TEMP >100.4 Stop: 03/21/18 16:07 Al Hydrox/Mg Hydrox/Simethicone (Maalox) 30 ml PO Q6HR PRN PRN Reason: GI DISTRESS Stop: 03/21/18 16:28 Albuterol/Ipratropium (Duoneb Neb) 3 ml HHN Q6HRT [facility] Stop: 03/30/18 00:59 Last Admin: 02/04/18 12:55 Dose: 3 ml Amlodipine Besylate (Norvasc) 10 mg PO DAILY [facility] Stop: 04/02/18 16:59 Last Admin: 02/04/18 09:00 Dose: Not Given Artificial Tears (Artificial Tears Ophth Soln) 1 drop EACH EYE Q2HR PRN PRN Reason: Dry Eye Stop: 03/27/18 09:28 Last Admin: 01/26/18 10:13 Dose: 1 drop Atorvastatin Calcium (Lipitor) 80 mg PO HS [facility] PRN Reason: Protocol Stop: 03/21/18 20:59 Last Admin: 02/03/18 21:42 Dose: 80 mg Bisacodyl (Dulcolax 10 Mg Supp) 10 mg RC DAILY PRN PRN Reason: Constipation Stop: 03/21/18 16:07 Budesonide (Pulmicort) 0.5 mg HHN BIDRT [facility] Stop: 04/01/18 18:59 Last Admin: 02/04/18 09:25 Dose: 0.5 mg Carvedilol (Coreg) 12.5 mg PO BID [facility] Stop: 03/21/18 16:59 Last Admin: 02/04/18 11:50 Dose: Not Given Chlorhexidine Gluconate (Peridex) 15 ml MM 0800,2000 [facility] Stop: 03/27/18 07:59 Last Admin: 02/04/18 08:40 Dose: 15 ml Dextrose (D50w) 50 ml IVP PRN PRN PRN Reason: HYPOGLYCEMIA Stop: 03/21/18 16:07 Diltiazem HCl (Cardizem) 60 mg PO Q6HR [facility] Stop: 03/21/18 17:59 Last Admin: 02/04/18 11:48 Dose: Not Given Enalaprilat (Vasotec) 2.5 mg IVP Q6HR PRN PRN Reason: SBP ABOVE 160 Stop: 03/25/18 11:59 Last Admin: 02/01/18 20:35 Dose: 2.5 mg Glucagon (Glucagen) 1 mg IVP PRN PRN PRN Reason: HYPOGLYCEMIA Stop: 03/21/18 16:25 Meropenem 1 gm/ Sodium (Chloride) 100 mls @ 100 mls/hr IV Q12H [facility] Stop: 03/26/18 08:59 Last Infusion: 02/04/18 10:00 Dose: Infused Phenylephrine HCl 10 mg/ (Sodium Chloride) 250 mls @ 75 mls/hr IV TITR [facility]; 50 MCG/MIN PRN Reason: Protocol Stop: 03/25/18 20:14 Norepinephrine Bitartrate 4 mg (/ Sodium Chloride) 254 mls @ 15.24 mls/hr IV TITR [facility]; 4 MCG/MIN PRN Reason: Protocol Stop: 03/26/18 08:14 Last Titration: 02/03/18 20:50 Dose: 0 mcg/min, 0 mls/hr Insulin Aspart (Novolog Insulin Sliding Scale) 0 units SUBQ Q6HR [facility] PRN Reason: Protocol Stop: 03/27/18 00:00 Last Admin: 02/04/18 11:38 Dose: Not Given Losartan Potassium (Cozaar) 100 mg PO DAILY [facility] Stop: 04/02/18 16:59 Last Admin: 02/04/18 09:00 Dose: Not Given Magnesium Hydroxide (Milk Of Magnesia) 30 ml PO DAILY PRN PRN Reason: IF NO BM IN TWO DAYS Stop: 03/21/18 16:07 Megestrol Acetate (Megace) 400 mg PO BID [facility] Stop: 03/21/18 16:59 Last Admin: 02/04/18 08:40 Dose: 400 mg Metoprolol Tartrate (Lopressor) 5 mg IV Q4H PRN PRN Reason: Tachycardia Stop: 03/25/18 12:29 Miscellaneous (Misc Oral Tab) 1 tab PO BID [facility] Stop: 02/08/18 09:01 Last Admin: 02/04/18 08:45 Dose: 1 tab Morphine Sulfate (Morphine) 1 mg IV Q4HR PRN PRN Reason: MOD TO SEVERE PAIN Stop: 04/02/18 15:59 Multivitamins/Vitamin C (Theragran) 1 tab PO DAILY [facility] Stop: 03/22/18 08:59 Last Admin: 02/04/18 08:40 Dose: 1 tab Ondansetron HCl (Zofran Odt) 4 mg PO Q6H PRN PRN Reason: Nausea / Vomiting Stop: 03/21/18 16:07 Pantoprazole Sodium (Protonix) 40 mg NG DAILY [facility] Stop: 03/28/18 16:59 Last Admin: 02/04/18 08:40 Dose: 40 mg Prednisone (Deltasone) 10 mg PO DAILY [facility] Stop: 03/22/18 08:59 Last Admin: 02/04/18 08:40 Dose: 10 mg Sodium Phosphate (Fleet Enema) 135 ml RC DAILY PRN PRN Reason: Constipation Stop: 03/21/18 16:07 Vitamin A (Vitamin A & D) 5 gm TP DAILY [facility] Stop: 03/22/18 08:59 Last Admin: 02/04/18 08:40 Dose: 5 gm General: Mild distress HEENT: Atraumatic, Mucous membr. moist/pink, Other (facial edema) Neck: Supple, +2 carotid pulse wo bruit Cardiovascular: Regular rate, Normal S1, Normal S2 Lungs: Other (decreased BS, coarse rhonchi) Abdomen: Bowel sounds, Soft Extremities: Edema, Other (less edema) Neurological: Sensation intact Skin: no Rash Psych/Mental Status: Other (obtunded) - Procedures Procedures: Procedures Procedure Code Date INSERT EMERGENCY AIRWAY 00497 01/20/18 INSERTION OF ENDOTRACHEAL AIRWAY INTO [place]HE[place], VIA OPENING [id number] 01/20/18 RESPIRATORY VENTILATION, GREATER THAN 96 CONSECUTIVE HOURS [id number] 01/20/18 VENT MGMT INPAT INIT DAY 16327 01/20/18 Assessment/Plan - Problem List Patient Problems: All Active Problems ELEVATED WBC, LUNG INFILTRATES (Acute) Nutritional Asmnt/Malnutr-PDOC - Dietary Evaluation Malnutrition Findings (Please click <Entered> for more info): Nutritional Asmnt/Malnutrition Start: 01/21/18 16: 32 Text: Status: Complete Freq: Document 01/21/18 16:32 AMITA (Rec: 01/21/18 16:48 [id number]) Nutritional Asmnt/Malnutrition Patient General Information Nutritional Screening High Risk Consult Diagnosis left lung infiltrate Pertinent Medical Hx/Surgical Hx dementia, HTN, hyperlipidemia per ER notes, no H&P at this time Subjective Information Pt seen sleeping at time of visit, not able to wake up for lunch. Per COMPUTER AIDE, pt only had cereal and scrambled eggs this morning, not able to chew the [place] toast d/t weakness. Current Diet Order/ Nutrition Support low cholesterol 300gm Pertinent Medications D5-0.45ns, novolog, megace, theragran, piperacillin, vit A &D Pertinent Labs 01/21 BUN 32, Glucose 180, POC 142-261 01/20 A1c 5.1, POC 127-165 Nutritional Hx/Data Height 1.6 m Height (Calculated Centimeters) 160.0 Current Weight (lbs) 37.648 kg Weight (Calculated Kilograms) 37.6 Weight (Calculated Grams) 20330.2 [place] Body Weight 115 Body Mass Index (BMI) 14.7 Weight Status Underweight GI Symptoms GI Symptoms None Last BM none Difficult in: None Skin Integrity/Comment: reddened to vagina and coccyx Current %PO Poor (25-49%) Estimated Nutritional Goals Calories/Kcals/Kg 25-30 Kcals Calculated 8070-8820 Protein g/k Protein Calculated 52 Fluid: ml 1300-1560ml (1ml/kcal) Nutritional Problem 2. Problem Problem chewing difficulty Etiology weakness, sleepy Signs/Symptoms: pt need for mech soft diet 1. Problem Problem altered nutrition related lab values Etiology hyperglycemia Signs/Symptoms: Glucose 180, POC 127-261 Intervention/Recommendation Comments 1. Recommend Mech soft ground diet with Boost BID to increase nutrition intake. 2. Monitor PO intake, wt, labs and skin integrity 3. F/U as high risk in 2-3 days, 01/23-01/24 Expected Outcomes/Goals Expected Outcomes/Goals 1. PO intake to meet at least 75% of nutritional needs. 2. Wt stability, skin to remain intact, labs to approach WNL.
[2018-02-04] MEDS: Morphine Sulfate 4 mg/mL 1mL Syr IV PRN (16:58)
--- NOTE | 2018-02-04 23:41 | Infectious Disease Prog Note ---
Infectious Disease Subjective - Review of Systems Service Date: 02/04/18 Subjective: No fever, remains intubated orally. on the ventilator support. Infectious Disease Objective - Results Result Diagrams: 02/04/18 10:35 02/04/18 04:20 Recent Labs: Laboratory Last Values WBC 19.9 Th/cmm (4.8-10.8) H 02/04/18 10:35 RBC 2.18 Mil/cmm (3.80-5.20) L 02/04/18 10:35 Hgb 6.6 gm/dL (12-16) L* 02/04/18 10:35 Hct 19.5 % (41.0-60) L* 02/04/18 10:35 MCV 89.6 fl (81-100) 02/04/18 10:35 MCH 30.4 pg (27.0-31.0) 02/04/18 10:35 MCHC Differential 33.9 pg (28.0-36.0) 02/04/18 10:35 RDW 15.7 % (11.5-20.0) 02/04/18 10:35 Plt Count 110 Th/cmm (150-400) L 02/04/18 10:35 MPV 7.8 fl 02/04/18 10:35 Neutrophils % 88.4 % (40.0-80.0) H 02/04/18 10:35 Band Neutrophils % 14 % (0-10) H 02/04/18 04:20 Lymphocytes % 4.9 % (20.0-50.0) L 02/04/18 10:35 Monocytes % 5.5 % (2.0-10.0) 02/04/18 10:35 Eosinophils % 1.0 % (0.0-5.0) 02/04/18 10:35 Basophils % 0.2 % (0.0-2.0) 02/04/18 10:35 Neutrophils (Manual) 76 % (40-80) 02/04/18 04:20 Lymphocytes 6 % (20-50) L 02/04/18 04:20 Monocytes 4 % (2-10) 02/04/18 04:20 Eosinophils 0 % (0-5) 01/27/18 04:58 Basophils 0 % (0-3) 01/27/18 04:58 Platelet Estimate SLIGHT DECREASED (NORMAL) 01/31/18 04:10 Platelet Morphology NORMAL (NORMAL) 01/27/18 04:58 RBC Morph Micro Appear NORMAL (NORMAL) 01/27/18 04:58 Eos Smear Source URINE 01/28/18 17:10 Eos Smear Total Cells NONE SEEN (NONE SEEN) 01/28/18 17:10 PT 9.3 SECONDS (9.5-11.5) L 01/29/18 21:26 INR 0.90 (0.5-1.4) 01/29/18 21:26 PTT (Actin FS) 46.6 SECONDS (26.0-38.0) H 01/29/18 21:26 Specimen Source Arterial 01/24/18 17:45 Sample Site Left Radial 01/24/18 17:45 pH 7.41 (7.35-7.45) 01/24/18 17:45 pCO2 32.0 mmHg (35.0-45.0) L 01/24/18 17:45 pO2 397.0 mmHg (80.0-100.0) H 01/24/18 17:45 HCO3 22.3 mEq/L (20.0-26.0) 01/24/18 17:45 Base Excess -3.5 mEq/L (-3.0-3.0) L 01/24/18 17:45 O2 Saturation 100.0 % (92.0-100.0) 01/24/18 17:45 Bebo Test YES 01/24/18 17:45 Vent Rate 14 01/24/18 17:45 Inspired O2 100 01/24/18 17:45 Tidal Volume 450 01/24/18 17:45 PEEP 5 01/24/18 17:45 Pressure (ins/psv/peep) NA 01/24/18 17:45 Critical Value E.BRIDGES 01/24/18 17:45 Sodium 138 mEq/L (136-145) 02/04/18 04:20 Potassium 3.9 mEq/L (3.5-5.1) 02/04/18 04:20 Chloride 104 mEq/L (98-107) 02/04/18 04:20 Carbon Dioxide 27.2 mEq/L (21.0-31.0) 02/04/18 04:20 Anion Gap 10.7 (7.0-16.0) 02/04/18 04:20 BUN 55 mg/dL (7-25) H 02/04/18 04:20 Creatinine 1.9 mg/dL (0.6-1.2) H 02/04/18 04:20 Est GFR ( Amer) TNP 02/04/18 04:20 Est GFR (Non-Af Amer) TNP 02/04/18 04:20 BUN/Creatinine Ratio 28.9 02/04/18 04:20 Glucose 110 mg/dL (70-105) H 02/04/18 04:20 POC Glucose 121 MG/DL (70 - 105) H 02/04/18 17:17 Hemoglobin A1c % 5.1 % (4.0-6.0) 01/20/18 12:15 Plasma/Ser Osmolality 287 mOsmol/kg (280-301) 01/28/18 17:45 Whole Bld Lactic Acid 1.50 mmol/L (0.60-1.99) 01/28/18 13:40 Uric Acid 5.3 mg/dL (2.3-6.6) 01/30/18 05:06 Calcium 8.6 mg/dL (8.6-10.3) 02/04/18 04:20 Phosphorus 3.3 mg/dL (2.5-5.0) 01/30/18 05:06 Magnesium 2.3 mg/dL (1.9-2.7) 01/30/18 05:06 Iron 54 ug/dL (27-139) 01/20/18 12:50 TIBC 159 ug/dL (250-450) L 01/20/18 12:50 Iron Saturation 34 % (15-55) 01/20/18 12:50 Unsaturated IBC 105 ug/dL (118-369) L 01/20/18 12:50 Ferritin 1230 ng/mL (15-150) H 01/20/18 12:50 Total Bilirubin 0.3 mg/dL (0.3-1.0) 01/29/18 05:10 Direct Bilirubin 0.07 mg/dL (0.0-0.2) 01/20/18 12:30 AST 54 U/L (13-39) H 01/29/18 05:10 ALT 93 U/L (7-52) H 01/29/18 05:10 Alkaline Phosphatase 105 U/L (34-104) H 01/29/18 05:10 Troponin I 0.03 ng/mL (0.01-0.05) 01/20/18 12:15 C-Reactive Protein 4.3 mg/dL (0.0-0.9) H 01/20/18 12:50 B-Natriuretic Peptide 185.0 pg/mL (5.0-100.0) H 01/25/18 04:20 Total Protein 3.7 gm/dL (6.0-8.3) L 01/29/18 05:10 Albumin 1.6 gm/dL (3.7-5.3) L 01/29/18 05:10 Globulin 2.1 gm/dL 01/29/18 05:10 Albumin/Globulin Ratio 0.8 (1.0-1.8) L 01/29/18 05:10 Triglycerides 97 mg/dL (<150) 01/20/18 12:15 Cholesterol 195 mg/dL (<200) 01/20/18 12:15 LDL Cholesterol Direct 152 mg/dL (75-193) 01/20/18 12:15 HDL Cholesterol 40 mg/dL (23-92) 01/20/18 12:15 Lipase 108 U/L (11-82) H 01/20/18 12:15 Free T4 1.12 ng/dL (0.82-1.77) 01/20/18 12:50 TSH 0.06 uIU/ml (0.34-5.60) L 01/20/18 12:15 Urine Source ZAPIEN PORT 01/28/18 17:10 Urine Color YELLOW 01/28/18 17:10 Urine Clarity CLOUDY (CLEAR) H 01/28/18 17:10 Urine pH 6.0 (4.6 - 8.0) 01/28/18 17:10 Ur Specific [place] 1.020 (1.005-1.030) 01/28/18 17:10 Urine Protein 100 mg/dL (NEGATIVE) H 01/28/18 17:10 Urine Glucose (UA) NEGATIVE mg/dL (NEGATIVE) 01/28/18 17:10 Urine Ketones NEGATIVE mg/dL (NEGATIVE) 01/28/18 17:10 Urine Blood MODERATE (NEGATIVE) H 01/28/18 17:10 Urine Nitrate NEGATIVE (NEGATIVE) 01/28/18 17:10 Urine Bilirubin NEGATIVE (NEGATIVE) 01/28/18 17:10 Urine Urobilinogen 0.2 E.U./dL (0.2 - 1.0) 01/28/18 17:10 Ur Leukocyte Esterase MODERATE (NEGATIVE) H 01/28/18 17:10 Urine RBC 5-10 /hpf (0-5) H 01/28/18 17:10 Urine WBC 10-25 /hpf (0-5) H 01/28/18 17:10 Ur Epithelial Cells OCCASIONAL /lpf (FEW) 01/28/18 17:10 Urine Bacteria OCCASIONAL /hpf (NONE SEEN) 01/28/18 17:10 Urine Yeast MANY /hpf (NONE SEEN) H 01/28/18 17:10 Ur Random Sodium 56 mmol/L 01/28/18 17:10 Urine Creatinine 39.0 mg/dl (28.0-217.0) 01/28/18 17:10 Vancomycin Trough 27.8 ug/mL (10-20) H 01/26/18 23:00 Random Vancomycin 22.6 ug/mL (5.0-40.0) 02/03/18 04:20 Blood Type O POSITIVE 02/03/18 16:58 Antibody Screen NEGATIVE 02/03/18 16:58 Crossmatch See Detail 02/03/18 16:58 - Physical Exam Vitals and I&O: Vital Signs Temp 98 F 02/04/18 19:00 Pulse 63 02/04/18 23:15 Resp 18 02/04/18 19:00 BP 119/58 02/04/18 19:00 Pulse Ox 100 02/04/18 23:15 Intake & Output 02/04/18 02/04/18 02/05/18 06:59 18:59 06:59 Intake Total 3235.867 7332 100 Output Total 120 3060 Balance 1067.597 -1550 100 Weight (lbs) 55.792 kg 54.431 kg Intake: Intake, IV Amount 277.597 100 100 Meropenem 1 gm In Sodium 100 100 100 Chloride 0.9% 100 ml @ 100 mls/hr IV Q12H [facility] Rx #:[id number] Norepinephrine 4 mg In 77.597 Sodium Chloride 0.9% 250 ml @ 4 MCG/MIN 15.24 mls/ hr IV TITR [facility] Rx#: [id number] metroNIDAZOLE 500mg/NS 100 100mL 500 mg In 100 ml @ 100 mls/hr IV Q8HR REPLACED BY [facility] Rx #:[id number] Tube Feeding 360 360 Blood Product 350 750 Other 200 300 Output: Urine 120 60 Hemodialysis 3000 Other: # Bowel Movements 2 Stool Characteristics Soft Soft Brown Brown Weight Source Bedscale Bedscale Active Medications: Current Medications Acetaminophen (Tylenol) 650 mg PO Q4H PRN PRN Reason: MILD PAIN OR TEMP >100.4 Stop: 03/21/18 16:07 Al Hydrox/Mg Hydrox/Simethicone (Maalox) 30 ml PO Q6HR PRN PRN Reason: GI DISTRESS Stop: 03/21/18 16:28 Albuterol/Ipratropium (Duoneb Neb) 3 ml HHN Q6HRT REPLACED BY [facility] Stop: 03/30/18 00:59 Last Admin: 02/04/18 19:07 Dose: 3 ml Amlodipine Besylate (Norvasc) 10 mg PO DAILY REPLACED BY [facility] Stop: 04/02/18 16:59 Last Admin: 02/04/18 09:00 Dose: Not Given Artificial Tears (Artificial Tears Ophth Soln) 1 drop EACH EYE Q2HR PRN PRN Reason: Dry Eye Stop: 03/27/18 09:28 Last Admin: 01/26/18 10:13 Dose: 1 drop Atorvastatin Calcium (Lipitor) 80 mg PO HS [facility] PRN Reason: Protocol Stop: 03/21/18 20:59 Last Admin: 02/04/18 20:31 Dose: 80 mg Bisacodyl (Dulcolax 10 Mg Supp) 10 mg RC DAILY PRN PRN Reason: Constipation Stop: 03/21/18 16:07 Budesonide (Pulmicort) 0.5 mg HHN BIDRT REPLACED BY [facility] Stop: 04/01/18 18:59 Last Admin: 02/04/18 19:07 Dose: 0.5 mg Carvedilol (Coreg) 12.5 mg PO BID REPLACED BY [facility] Stop: 03/21/18 16:59 Last Admin: 02/04/18 16:40 Dose: 12.5 mg Chlorhexidine Gluconate (Peridex) 15 ml MM 0800,2000 REPLACED BY [facility] Stop: 03/27/18 07:59 Last Admin: 02/04/18 20:32 Dose: 15 ml Dextrose (D50w) 50 ml IVP PRN PRN PRN Reason: HYPOGLYCEMIA Stop: 03/21/18 16:07 Diltiazem HCl (Cardizem) 60 mg PO Q6HR REPLACED BY [facility] Stop: 03/21/18 17:59 Last Admin: 02/04/18 19:56 Dose: Not Given Enalaprilat (Vasotec) 2.5 mg IVP Q6HR PRN PRN Reason: SBP ABOVE 160 Stop: 03/25/18 11:59 Last Admin: 02/04/18 16:58 Dose: 2.5 mg Glucagon (Glucagen) 1 mg IVP PRN PRN PRN Reason: HYPOGLYCEMIA Stop: 03/21/18 16:25 Meropenem 1 gm/ Sodium (Chloride) 100 mls @ 100 mls/hr IV Q12H REPLACED BY [facility] Stop: 03/26/18 08:59 Last Infusion: 02/04/18 21:40 Dose: Infused Phenylephrine HCl 10 mg/ (Sodium Chloride) 250 mls @ 75 mls/hr IV TITR [facility]; 50 MCG/MIN PRN Reason: Protocol Stop: 03/25/18 20:14 Norepinephrine Bitartrate 4 mg (/ Sodium Chloride) 254 mls @ 15.24 mls/hr IV TITR [facility]; 4 MCG/MIN PRN Reason: Protocol Stop: 03/26/18 08:14 Last Titration: 02/03/18 20:50 Dose: 0 mcg/min, 0 mls/hr Insulin Aspart (Novolog Insulin Sliding Scale) 0 units SUBQ Q6HR [facility] PRN Reason: Protocol Stop: 03/27/18 00:00 Last Admin: 02/04/18 17:20 Dose: Not Given Losartan Potassium (Cozaar) 100 mg PO DAILY REPLACED BY [facility] Stop: 04/02/18 16:59 Last Admin: 02/04/18 09:00 Dose: Not Given Magnesium Hydroxide (Milk Of Magnesia) 30 ml PO DAILY PRN PRN Reason: IF NO BM IN TWO DAYS Stop: 03/21/18 16:07 Megestrol Acetate (Megace) 400 mg PO BID REPLACED BY [facility] Stop: 03/21/18 16:59 Last Admin: 02/04/18 16:43 Dose: 400 mg Metoprolol Tartrate (Lopressor) 5 mg IV Q4H PRN PRN Reason: Tachycardia Stop: 03/25/18 12:29 Miscellaneous (Misc Oral Tab) 1 tab PO BID REPLACED BY [facility] Stop: 02/08/18 09:01 Last Admin: 02/04/18 16:43 Dose: 1 tab Morphine Sulfate (Morphine) 1 mg IV Q4HR PRN PRN Reason: MOD TO SEVERE PAIN Stop: 04/02/18 15:59 Last Admin: 02/04/18 16:58 Dose: 1 mg Multivitamins/Vitamin C (Theragran) 1 tab PO DAILY REPLACED BY [facility] Stop: 03/22/18 08:59 Last Admin: 02/04/18 08:40 Dose: 1 tab Ondansetron HCl (Zofran Odt) 4 mg PO Q6H PRN PRN Reason: Nausea / Vomiting Stop: 03/21/18 16:07 Pantoprazole Sodium (Protonix) 40 mg NG DAILY REPLACED BY [facility] Stop: 03/28/18 16:59 Last Admin: 02/04/18 08:40 Dose: 40 mg Prednisone (Deltasone) 10 mg PO DAILY REPLACED BY [facility] Stop: 03/22/18 08:59 Last Admin: 02/04/18 08:40 Dose: 10 mg Sodium Phosphate (Fleet Enema) 135 ml RC DAILY PRN PRN Reason: Constipation Stop: 03/21/18 16:07 Vitamin A (Vitamin A & D) 5 gm TP DAILY REPLACED BY [facility] Stop: 03/22/18 08:59 Last Admin: 02/04/18 08:40 Dose: 5 gm General: no acute distress, well developed, well nourished HEENT: atraumatic, normocephalic, PERRLA, EOMI Neck: supple, no thyromegaly Cardiovascular: S1S2, regular Lungs: clear to auscultation bilaterally, clear to percussion Abdomen: soft, no tender, no distended, no mass Extremities: no cyanosis, no clubbing, no edema Neurological: awake, alert, oriented Skin: intact Other physical findings: bilateral subclavian branden catheter. - Procedures Procedures: Procedures Procedure Code Date INSERT EMERGENCY AIRWAY 03483 01/20/18 INSERTION OF ENDOTRACHEAL AIRWAY INTO [place], VIA OPENING [id number] 01/20/18 RESPIRATORY VENTILATION, GREATER THAN 96 CONSECUTIVE HOURS [id number] 01/20/18 VENT MGMT INPAT INIT DAY [id number] 01/20/18 Infectious Disease Assmt/Plan - Problem List Patient Problems: All Active Problems ELEVATED WBC, LUNG INFILTRATES (Acute) - Assessment Assessment: 1. Leukocytosis. suspect sepsis. 2. Pneumonia. L lung. 3. Dementia 4. S/p CP arrest. 5. Anoxic encephalopathy. 6. VDRF. 7. Increaing creatinine. LAURENCE. oliguric. 8. pulmonary aspergillosis. - Plan Plan: Continue meropenem. Continue voriconazole po ( not IV). 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 Leukocytosis, reactive, improving on repeat test. Nutritional Asmnt/Malnutr-PDOC - Dietary Evaluation Malnutrition Findings (Please click <Entered> for more info): Nutritional Asmnt/Malnutrition Start: 01/21/18 16: 32 Text: Status: Complete Freq: Document 01/21/18 16:32 HEN (Rec: 01/21/18 16:48 [email or web address] [email or web address]) Nutritional Asmnt/Malnutrition Patient General Information Nutritional Screening High Risk Consult Diagnosis left lung infiltrate Pertinent Medical Hx/Surgical Hx dementia, HTN, hyperlipidemia per ER notes, no H&P at this time Subjective Information Pt seen sleeping at time of visit, not able to wake up for lunch. Per [facility]ORAL [facility]RANGER, pt only had cereal and scrambled eggs this morning, not able to chew the Lao toast d/t weakness. Current Diet Order/ Nutrition Support low cholesterol 300gm Pertinent Medications D5-0.45ns, novolog, megace, theragran, piperacillin, vit A &D Pertinent Labs 01/21 BUN 32, Glucose 180, POC 142-261 01/20 A1c 5.1, POC 127-165 Nutritional Hx/Data Height 1.6 m Height (Calculated Centimeters) 160.0 Current Weight (lbs) 37.648 kg Weight (Calculated Kilograms) 37.6 Weight (Calculated Grams) 45271.2 [place] Body Weight 115 Body Mass Index (BMI) 14.7 Weight Status Underweight GI Symptoms GI Symptoms None Last BM none Difficult in: None Skin Integrity/Comment: reddened to vagina and coccyx Current %PO Poor (25-49%) Estimated Nutritional Goals Calories/Kcals/Kg 25-30 Kcals Calculated 4425-2773 Protein g/k Protein Calculated 52 Fluid: ml 1300-1560ml (1ml/kcal) Nutritional Problem 2. Problem Problem chewing difficulty Etiology weakness, sleepy Signs/Symptoms: pt need for mech soft diet 1. Problem Problem altered nutrition related lab values Etiology hyperglycemia Signs/Symptoms: Glucose 180, POC 127-261 Intervention/Recommendation Comments 1. Recommend Mech soft ground diet with Boost BID to increase nutrition intake. 2. Monitor PO intake, wt, labs and skin integrity 3. F/U as high risk in 2-3 days, 01/23-01/24 Expected Outcomes/Goals Expected Outcomes/Goals 1. PO intake to meet at least 75% of nutritional needs. 2. Wt stability, skin to remain intact, labs to approach WNL.
[2018-02-05] MEDS: Albuterol/Ipratropium Neb 3 ML AERS HHN SCH ×4 (01:08→19:41)
[2018-02-05] MEDS: Morphine Sulfate 4 mg/mL 1mL Syr IV PRN (01:29)
[2018-02-05] MEDS: Diltiazem 30 mg Tab PO SCH ×3 (05:15→18:04)
[2018-02-05 05:33] LABS: % BASOPHILS 0.9 % (0.0-2.0); % EOSINOPHILS 1.3 % (0.0-5.0); % LYMPHOCYTES 5.5 % (20.0-50.0); % MONOCYTES 3.1 % (2.0-10.0); % NEUTROPHILS 89.2 % (40.0-80.0); BASOPHILE ABSOLUTE 0.1 Th/cumm (0-0.2); EOSINOPHILE ABSOLUTE 0.2 Th/cmm (0.1-0.4); HEMATOCRIT 39.5 % (41.0-60); HEMOGLOBIN 13.5 gm/dL (12-16); LYMPHOCYTE ABSOLUTE 0.8 Th/cmm (1.5-3.0); MEAN CELL VOLUME 89.7 fl (81-100); MEAN CORPUSCULAR HEMOGLOBIN 30.6 pg (27.0-31.0); MEAN CORPUSCULAR HGB CONC 34.1 pg (28.0-36.0); MEAN PLATELET VOLUME 6.3 fl; MONOCYTE ABSOLUTE 0.4 Th/cmm (0.3-1.0); NEUTROPHILE ABSOLUTE 12.6 Th/cmm (1.8-8.0); RED BLOOD COUNT 4.41 Mil/cmm (3.80-5.20); RED CELL DISTRIBUTION WIDTH 16.7 % (11.5-20.0)
[2018-02-05] MEDS: INSULIN ASPART SLIDING SCALE 100 UNITS/ML UNIT SUBQ SCH ×3 (05:41→18:12)
[2018-02-05 06:01] LABS: ALB/GLOB RATIO 2.8 (1.0-1.8); ALBUMIN 3.6 gm/dL (3.7-5.3); ALKALINE PHOSPHATASE 413 U/L (34-104); ANION GAP 13.5 (7.0-16.0); BILIRUBIN,TOTAL 1.7 mg/dL (0.3-1.0); BUN - UREA NITROGEN 42 mg/dL (7-25); CALCIUM SERUM 8.6 mg/dL (8.6-10.3); CARBON DIOXIDE 24.4 mEq/L (21.0-31.0); CHLORIDE 102 mEq/L (98-107); CREATININE - SERUM 1.5 mg/dL (0.6-1.2); GLUCOSE 111 mg/dL (70-105); POTASSIUM SERUM 3.9 mEq/L (3.5-5.1); SGOT 200 U/L (13-39); SGPT/ALT 43 U/L (7-52); SODIUM SERUM 136 mEq/L (136-145); TOTAL PROTEIN,SERUM 4.9 gm/dL (6.0-8.3)
[2018-02-05 06:12] LABS: WHITE BLOOD COUNT 14.1 Th/cmm (4.8-10.8)
[2018-02-05 06:13] LABS: PLATELET COUNT 13 Th/cmm (150-400)
[2018-02-05 07:07] LABS: HEMATOCRIT 41.7 % (41.0-60); HEMOGLOBIN 14.2 gm/dL (12-16); MEAN CELL VOLUME 89.4 fl (81-100); MEAN CORPUSCULAR HEMOGLOBIN 30.4 pg (27.0-31.0); MEAN CORPUSCULAR HGB CONC 34.1 pg (28.0-36.0); MEAN PLATELET VOLUME 8.3 fl; RED BLOOD COUNT 4.66 Mil/cmm (3.80-5.20); RED CELL DISTRIBUTION WIDTH 16.9 % (11.5-20.0)
[2018-02-05 07:13] LABS: PLATELET COUNT 88 Th/cmm (150-400)
[2018-02-05] MEDS: Budesonide 0.5 Mg/2 mL Ud HHN SCH ×2 (07:16→19:41)
[2018-02-05 07:18] LABS: % NEUTROPHILS 87.3 % (40.0-80.0)
[2018-02-05 07:19] LABS: % EOSINOPHILS 1.4 % (0.0-5.0); % MONOCYTES 4.3 % (2.0-10.0); EOSINOPHILE ABSOLUTE 0.3 Th/cmm (0.1-0.4); LYMPHOCYTE ABSOLUTE 1.5 Th/cmm (1.5-3.0); MONOCYTE ABSOLUTE 0.9 Th/cmm (0.3-1.0); NEUTROPHILE ABSOLUTE 18.3 Th/cmm (1.8-8.0)
[2018-02-05] MEDS: Meropenem 1 GM in Sodium Chloride 0.9% 100 ML IV SCH ×2 (08:52→20:08)
[2018-02-05] MEDS: Pantoprazole 40 mg/Packet NG SCH (08:59)
[2018-02-05] MEDS: Multivitamin Tab PO SCH (09:00)
[2018-02-05] MEDS: Chlorhexidine Gluconate 0.12% 15mL Mouthwash MM SCH ×2 (09:00→20:22)
[2018-02-05] MEDS: Vitamin A/Vitamin D 5 gm Packet TP SCH (09:01)
--- NOTE | 2018-02-05 09:01 | Diagnostic Imaging Report ---
Portable chest x-ray HISTORY: Shortness of breath Compared with prior exam of February 03, 2018, the overall heart size appears normal. Density is noted in the left lower hemithorax suggesting a pleural effusion. Underlying infiltrate/pneumonia cannot be excluded. An endotracheal tube tip is approximately 4.0 cm above the andrew. IMPRESSION: 1. Persistent density within the left lower hemithorax suggesting a pleural effusion. Underlying pneumonia cannot be excluded. Clinical correlation is needed.
[2018-02-05] MEDS: VORICONAZOLE 200 MG PO SCH ×2 (09:02→16:54)
[2018-02-05] MEDS: Polyvinyl Alcohol Ophth Soln 15 mL Bottle EACH EYE PRN (09:06)
--- NOTE | 2018-02-05 13:25 | Internal Medicine Prog Note ---
Internal Medicine Subjective - Subjective Service Date: 02/05/18 Patient seen and examined:: with staff Patient is:: awake Per staff patient has:: tolerating meds Internal Medicine Objective - Results Result Diagrams: 02/05/18 07:00 02/05/18 05:15 Recent Labs: Laboratory Last Values WBC 21.0 Th/cmm (4.8-10.8) H* D 02/05/18 07:00 RBC 4.66 Mil/cmm (3.80-5.20) 02/05/18 07:00 Hgb 14.2 gm/dL (12-16) 02/05/18 07:00 Hct 41.7 % (41.0-60) 02/05/18 07:00 MCV 89.4 fl (81-100) 02/05/18 07:00 MCH 30.4 pg (27.0-31.0) 02/05/18 07:00 MCHC Differential 34.1 pg (28.0-36.0) 02/05/18 07:00 RDW 16.9 % (11.5-20.0) 02/05/18 07:00 Plt Count 88 Th/cmm (150-400) L D 02/05/18 07:00 MPV 8.3 fl 02/05/18 07:00 Neutrophils % 87.3 % (40.0-80.0) H 02/05/18 07:00 Band Neutrophils % 14 % (0-10) H 02/04/18 04:20 Lymphocytes % 7.0 % (20.0-50.0) L 02/05/18 07:00 Monocytes % 4.3 % (2.0-10.0) 02/05/18 07:00 Eosinophils % 1.4 % (0.0-5.0) 02/05/18 07:00 Basophils % 0.0 % (0.0-2.0) 02/05/18 07:00 Neutrophils (Manual) 76 % (40-80) 02/04/18 04:20 Lymphocytes 6 % (20-50) L 02/04/18 04:20 Monocytes 4 % (2-10) 02/04/18 04:20 Eosinophils 0 % (0-5) 01/27/18 04:58 Basophils 0 % (0-3) 01/27/18 04:58 Platelet Estimate SLIGHT DECREASED (NORMAL) 01/31/18 04:10 Platelet Morphology NORMAL (NORMAL) 01/27/18 04:58 RBC Morph Micro Appear NORMAL (NORMAL) 01/27/18 04:58 Eos Smear Source URINE 01/28/18 17:10 Eos Smear Total Cells NONE SEEN (NONE SEEN) 01/28/18 17:10 PT 9.3 SECONDS (9.5-11.5) L 01/29/18 21:26 INR 0.90 (0.5-1.4) 01/29/18 21:26 PTT (Actin FS) 46.6 SECONDS (26.0-38.0) H 01/29/18 21:26 Specimen Source Arterial 01/24/18 17:45 Sample Site Left Radial 01/24/18 17:45 pH 7.41 (7.35-7.45) 01/24/18 17:45 pCO2 32.0 mmHg (35.0-45.0) L 01/24/18 17:45 pO2 397.0 mmHg (80.0-100.0) H 01/24/18 17:45 HCO3 22.3 mEq/L (20.0-26.0) 01/24/18 17:45 Base Excess -3.5 mEq/L (-3.0-3.0) L 01/24/18 17:45 O2 Saturation 100.0 % (92.0-100.0) 01/24/18 17:45 Bebo Test YES 01/24/18 17:45 Vent Rate 14 01/24/18 17:45 Inspired O2 100 01/24/18 17:45 Tidal Volume 450 01/24/18 17:45 PEEP 5 01/24/18 17:45 Pressure (ins/psv/peep) NA 01/24/18 17:45 Critical Value E.BRIDGES 01/24/18 17:45 Sodium 136 mEq/L (136-145) 02/05/18 05:15 Potassium 3.9 mEq/L (3.5-5.1) 02/05/18 05:15 Chloride 102 mEq/L (98-107) 02/05/18 05:15 Carbon Dioxide 24.4 mEq/L (21.0-31.0) 02/05/18 05:15 Anion Gap 13.5 (7.0-16.0) 02/05/18 05:15 BUN 42 mg/dL (7-25) H 02/05/18 05:15 Creatinine 1.5 mg/dL (0.6-1.2) H 02/05/18 05:15 Est GFR ( Amer) TNP 02/05/18 05:15 Est GFR (Non-Af Amer) TNP 02/05/18 05:15 BUN/Creatinine Ratio 28.0 02/05/18 05:15 Glucose 111 mg/dL (70-105) H 02/05/18 05:15 POC Glucose 95 MG/DL (70 - 105) 02/05/18 11:31 Hemoglobin A1c % 5.1 % (4.0-6.0) 01/20/18 12:15 Plasma/Ser Osmolality 287 mOsmol/kg (280-301) 01/28/18 17:45 Whole Bld Lactic Acid 1.50 mmol/L (0.60-1.99) 01/28/18 13:40 Uric Acid 5.3 mg/dL (2.3-6.6) 01/30/18 05:06 Calcium 8.6 mg/dL (8.6-10.3) 02/05/18 05:15 Phosphorus 3.3 mg/dL (2.5-5.0) 01/30/18 05:06 Magnesium 2.3 mg/dL (1.9-2.7) 01/30/18 05:06 Iron 54 ug/dL (27-139) 01/20/18 12:50 TIBC 159 ug/dL (250-450) L 01/20/18 12:50 Iron Saturation 34 % (15-55) 01/20/18 12:50 Unsaturated IBC 105 ug/dL (118-369) L 01/20/18 12:50 Ferritin 1230 ng/mL (15-150) H 01/20/18 12:50 Total Bilirubin 1.7 mg/dL (0.3-1.0) H 02/05/18 05:15 Direct Bilirubin 0.07 mg/dL (0.0-0.2) 01/20/18 12:30 AST 200 U/L (13-39) H 02/05/18 05:15 ALT 43 U/L (7-52) 02/05/18 05:15 Alkaline Phosphatase 413 U/L (34-104) H 02/05/18 05:15 Troponin I 0.03 ng/mL (0.01-0.05) 01/20/18 12:15 C-Reactive Protein 4.3 mg/dL (0.0-0.9) H 01/20/18 12:50 B-Natriuretic Peptide 185.0 pg/mL (5.0-100.0) H 01/25/18 04:20 Total Protein 4.9 gm/dL (6.0-8.3) L 02/05/18 05:15 Albumin 3.6 gm/dL (3.7-5.3) L 02/05/18 05:15 Globulin 1.3 gm/dL 02/05/18 05:15 Albumin/Globulin Ratio 2.8 (1.0-1.8) H 02/05/18 05:15 Triglycerides 97 mg/dL (<150) 01/20/18 12:15 Cholesterol 195 mg/dL (<200) 01/20/18 12:15 LDL Cholesterol Direct 152 mg/dL (75-193) 01/20/18 12:15 HDL Cholesterol 40 mg/dL (23-92) 01/20/18 12:15 Lipase 108 U/L (11-82) H 01/20/18 12:15 Free T4 1.12 ng/dL (0.82-1.77) 01/20/18 12:50 TSH 0.06 uIU/ml (0.34-5.60) L 01/20/18 12:15 Urine Source [place] 01/28/18 17:10 Urine Color YELLOW 01/28/18 17:10 Urine Clarity CLOUDY (CLEAR) H 01/28/18 17:10 Urine pH 6.0 (4.6 - 8.0) 01/28/18 17:10 Ur Specific [place] 1.020 (1.005-1.030) 01/28/18 17:10 Urine Protein 100 mg/dL (NEGATIVE) H 01/28/18 17:10 Urine Glucose (UA) NEGATIVE mg/dL (NEGATIVE) 01/28/18 17:10 Urine Ketones NEGATIVE mg/dL (NEGATIVE) 01/28/18 17:10 Urine Blood MODERATE (NEGATIVE) H 01/28/18 17:10 Urine Nitrate NEGATIVE (NEGATIVE) 01/28/18 17:10 Urine Bilirubin NEGATIVE (NEGATIVE) 01/28/18 17:10 Urine Urobilinogen 0.2 E.U./dL (0.2 - 1.0) 01/28/18 17:10 Ur Leukocyte Esterase MODERATE (NEGATIVE) H 01/28/18 17:10 Urine RBC 5-10 /hpf (0-5) H 01/28/18 17:10 Urine WBC 10-25 /hpf (0-5) H 01/28/18 17:10 Ur Epithelial Cells OCCASIONAL /lpf (FEW) 01/28/18 17:10 Urine Bacteria OCCASIONAL /hpf (NONE SEEN) 01/28/18 17:10 Urine Yeast MANY /hpf (NONE SEEN) H 01/28/18 17:10 Ur Random Sodium 56 mmol/L 01/28/18 17:10 Urine Creatinine 39.0 mg/dl (28.0-217.0) 01/28/18 17:10 Vancomycin Trough 27.8 ug/mL (10-20) H 01/26/18 23:00 Random Vancomycin 22.6 ug/mL (5.0-40.0) 02/03/18 04:20 Blood Type O POSITIVE 02/03/18 16:58 Antibody Screen NEGATIVE 02/03/18 16:58 Crossmatch See Detail 02/03/18 16:58 - Physical Exam Vitals and I&O: Vital Signs Temp 99 F 02/05/18 12:00 Pulse 57 02/05/18 13:00 Resp 19 02/05/18 13:00 BP 124/62 02/05/18 13:00 Pulse Ox 100 02/05/18 13:00 Intake & Output 02/04/18 02/05/18 02/05/18 18:59 06:59 18:59 Intake Total 1510 760 100 Output Total 3060 100 Balance -1550 660 100 Weight (lbs) 120 lb 120 lb Intake: Intake, IV Amount 100 100 100 Meropenem 1 gm In Sodium 100 100 100 Chloride 0.9% 100 ml @ 100 mls/hr IV Q12H [facility] Rx #:[id number] Tube Feeding 360 360 Blood Product 750 Other 300 300 Output: Urine 60 100 Hemodialysis 3000 Other: # Bowel Movements 1 Stool Characteristics Soft Soft Brown Brown Weight Source Bedscale Bedscale Active Medications: Current Medications Acetaminophen (Tylenol) 650 mg PO Q4H PRN PRN Reason: MILD PAIN OR TEMP >100.4 Stop: 03/21/18 16:07 Al Hydrox/Mg Hydrox/Simethicone (Maalox) 30 ml PO Q6HR PRN PRN Reason: GI DISTRESS Stop: 03/21/18 16:28 Albuterol/Ipratropium (Duoneb Neb) 3 ml HHN Q6HRT [facility] Stop: 03/30/18 00:59 Last Admin: 02/05/18 07:07 Dose: 3 ml Amlodipine Besylate (Norvasc) 10 mg PO DAILY [facility] Stop: 04/02/18 16:59 Last Admin: 02/05/18 09:01 Dose: 10 mg Artificial Tears (Artificial Tears Ophth Soln) 1 drop EACH EYE Q2HR PRN PRN Reason: Dry Eye Stop: 03/27/18 09:28 Last Admin: 02/05/18 09:06 Dose: 1 drop Atorvastatin Calcium (Lipitor) 80 mg PO HS [facility] PRN Reason: Protocol Stop: 03/21/18 20:59 Last Admin: 02/04/18 20:31 Dose: 80 mg Bisacodyl (Dulcolax 10 Mg Supp) 10 mg RC DAILY PRN PRN Reason: Constipation Stop: 03/21/18 16:07 Budesonide (Pulmicort) 0.5 mg HHN BIDRT [facility] Stop: 04/01/18 18:59 Last Admin: 02/05/18 07:16 Dose: 0.5 mg Carvedilol (Coreg) 12.5 mg PO BID [facility] Stop: 03/21/18 16:59 Last Admin: 02/05/18 09:00 Dose: 12.5 mg Chlorhexidine Gluconate (Peridex) 15 ml MM 0800,2000 [facility] Stop: 03/27/18 07:59 Last Admin: 02/05/18 09:00 Dose: 15 ml Dextrose (D50w) 50 ml IVP PRN PRN PRN Reason: HYPOGLYCEMIA Stop: 03/21/18 16:07 Diltiazem HCl (Cardizem) 60 mg PO Q6HR [facility] Stop: 03/21/18 17:59 Last Admin: 02/05/18 12:43 Dose: Not Given Enalaprilat (Vasotec) 2.5 mg IVP Q6HR PRN PRN Reason: SBP ABOVE 160 Stop: 03/25/18 11:59 Last Admin: 02/04/18 16:58 Dose: 2.5 mg Glucagon (Glucagen) 1 mg IVP PRN PRN PRN Reason: HYPOGLYCEMIA Stop: 03/21/18 16:25 Meropenem 1 gm/ Sodium (Chloride) 100 mls @ 100 mls/hr IV Q12H [facility] Stop: 03/26/18 08:59 Last Infusion: 02/05/18 09:55 Dose: Infused Phenylephrine HCl 10 mg/ (Sodium Chloride) 250 mls @ 75 mls/hr IV TITR [facility]; 50 MCG/MIN PRN Reason: Protocol Stop: 03/25/18 20:14 Norepinephrine Bitartrate 4 mg (/ Sodium Chloride) 254 mls @ 15.24 mls/hr IV TITR [facility]; 4 MCG/MIN PRN Reason: Protocol Stop: 03/26/18 08:14 Last Titration: 02/03/18 20:50 Dose: 0 mcg/min, 0 mls/hr Insulin Aspart (Novolog Insulin Sliding Scale) 0 units SUBQ Q6HR [facility] PRN Reason: Protocol Stop: 03/27/18 00:00 Last Admin: 02/05/18 12:43 Dose: Not Given Losartan Potassium (Cozaar) 100 mg PO DAILY [facility] Stop: 04/02/18 16:59 Last Admin: 02/05/18 10:06 Dose: 100 mg Magnesium Hydroxide (Milk Of Magnesia) 30 ml PO DAILY PRN PRN Reason: IF NO BM IN TWO DAYS Stop: 03/21/18 16:07 Megestrol Acetate (Megace) 400 mg PO BID [facility] Stop: 03/21/18 16:59 Last Admin: 02/05/18 09:01 Dose: Not Given Metoprolol Tartrate (Lopressor) 5 mg IV Q4H PRN PRN Reason: Tachycardia Stop: 03/25/18 12:29 Miscellaneous (Misc Oral Tab) 1 tab PO BID [facility] Stop: 02/08/18 09:01 Last Admin: 02/05/18 09:02 Dose: 1 tab Morphine Sulfate (Morphine) 1 mg IV Q4HR PRN PRN Reason: MOD TO SEVERE PAIN Stop: 04/02/18 15:59 Last Admin: 02/05/18 01:29 Dose: 1 mg Multivitamins/Vitamin C (Theragran) 1 tab PO DAILY [facility] Stop: 03/22/18 08:59 Last Admin: 02/05/18 09:00 Dose: 1 tab Ondansetron HCl (Zofran Odt) 4 mg PO Q6H PRN PRN Reason: Nausea / Vomiting Stop: 03/21/18 16:07 Pantoprazole Sodium (Protonix) 40 mg NG DAILY [facility] Stop: 03/28/18 16:59 Last Admin: 02/05/18 08:59 Dose: 40 mg Prednisone (Deltasone) 10 mg PO DAILY [facility] Stop: 03/22/18 08:59 Last Admin: 02/05/18 09:00 Dose: 10 mg Sodium Phosphate (Fleet Enema) 135 ml RC DAILY PRN PRN Reason: Constipation Stop: 03/21/18 16:07 Vitamin A (Vitamin A & D) 5 gm TP DAILY [facility] Stop: 03/22/18 08:59 Last Admin: 02/05/18 09:01 Dose: 5 gm General: weak, alert HEENT: NC/AT, PERRLA Neck: Supple Lungs: CTAB Cardiovascular: RRR, Normal S1, Normal S2, without murmur Abdomen: soft, non-tender, non-distended, positive bowel sound - Procedures Procedures: Procedures Procedure Code Date INSERT EMERGENCY AIRWAY 52863 01/20/18 INSERTION OF ENDOTRACHEAL AIRWAY INTO [place]HE[place], VIA OPENING [id number] 01/20/18 RESPIRATORY VENTILATION, GREATER THAN 96 CONSECUTIVE HOURS [id number] 01/20/18 VENT MGMT INPAT INIT DAY [id number] 01/20/18 Internal Medicine Assmt/Plan - Assessment Assessment: Current Active Problems Problem Status Onset ELEVATED WBC, LUNG INFILTRATES Acute Leukocytosis Pneumonia Dementia - Plan Plan: may need trach placement? Ivantibiotics as per ID continue vent support follow up labs in am continue current orders Nutritional Asmnt/Malnutr-PDOC - Dietary Evaluation Malnutrition Findings (Please click <Entered> for more info): Nutritional Asmnt/Malnutrition Start: 01/21/18 16: 32 Text: Status: Complete Freq: Document 01/21/18 16:32 LCHENG (Rec: 01/21/18 16:48 [email or web address]) Nutritional Asmnt/Malnutrition Patient General Information Nutritional Screening High Risk Consult Diagnosis left lung infiltrate Pertinent Medical Hx/Surgical Hx dementia, HTN, hyperlipidemia per ER notes, no H&P at this time Subjective Information Pt seen sleeping at time of visit, not able to wake up for lunch. Per [employer], pt only had cereal and scrambled eggs this morning, not able to chew the [place] toast d/t weakness. Current Diet Order/ Nutrition Support low cholesterol 300gm Pertinent Medications D5-0.45ns, novolog, megace, theragran, piperacillin, vit A &D Pertinent Labs 01/21 BUN 32, Glucose 180, POC 142-261 01/20 A1c 5.1, POC 127-165 Nutritional Hx/Data Height 5 ft 3 in Height (Calculated Centimeters) 160.0 Current Weight (lbs) 83 lb Weight (Calculated Kilograms) 37.6 Weight (Calculated Grams) 60269.2 [place] Body Weight 115 Body Mass Index (BMI) 14.7 Weight Status Underweight GI Symptoms GI Symptoms None Last BM none Difficult in: None Skin Integrity/Comment: reddened to vagina and coccyx Current %PO Poor (25-49%) Estimated Nutritional Goals Calories/Kcals/Kg 25-30 Kcals Calculated 9336-4811 Protein g/k Protein Calculated 52 Fluid: ml 1300-1560ml (1ml/kcal) Nutritional Problem 2. Problem Problem chewing difficulty Etiology weakness, sleepy Signs/Symptoms: pt need for mech soft diet 1. Problem Problem altered nutrition related lab values Etiology hyperglycemia Signs/Symptoms: Glucose 180, POC 127-261 Intervention/Recommendation Comments 1. Recommend Mech soft ground diet with Boost BID to increase nutrition intake. 2. Monitor PO intake, wt, labs and skin integrity 3. F/U as high risk in 2-3 days, 01/23-01/24 Expected Outcomes/Goals Expected Outcomes/Goals 1. PO intake to meet at least 75% of nutritional needs. 2. Wt stability, skin to remain intact, labs to approach WNL.
--- NOTE | 2018-02-05 14:39 | General Progress Note ---
Subjective - Review of Systems Service Date: 02/05/18 Subjective: stuporous today, on vent Objective - Results Result Diagrams: 02/05/18 07:00 02/05/18 05:15 Recent Labs: Laboratory Last Values WBC 21.0 Th/cmm (4.8-10.8) H* D 02/05/18 07:00 RBC 4.66 Mil/cmm (3.80-5.20) 02/05/18 07:00 Hgb 14.2 gm/dL (12-16) 02/05/18 07:00 Hct 41.7 % (41.0-60) 02/05/18 07:00 MCV 89.4 fl (81-100) 02/05/18 07:00 MCH 30.4 pg (27.0-31.0) 02/05/18 07:00 MCHC Differential 34.1 pg (28.0-36.0) 02/05/18 07:00 RDW 16.9 % (11.5-20.0) 02/05/18 07:00 Plt Count 88 Th/cmm (150-400) L D 02/05/18 07:00 MPV 8.3 fl 02/05/18 07:00 Neutrophils % 87.3 % (40.0-80.0) H 02/05/18 07:00 Band Neutrophils % 14 % (0-10) H 02/04/18 04:20 Lymphocytes % 7.0 % (20.0-50.0) L 02/05/18 07:00 Monocytes % 4.3 % (2.0-10.0) 02/05/18 07:00 Eosinophils % 1.4 % (0.0-5.0) 02/05/18 07:00 Basophils % 0.0 % (0.0-2.0) 02/05/18 07:00 Neutrophils (Manual) 76 % (40-80) 02/04/18 04:20 Lymphocytes 6 % (20-50) L 02/04/18 04:20 Monocytes 4 % (2-10) 02/04/18 04:20 Eosinophils 0 % (0-5) 01/27/18 04:58 Basophils 0 % (0-3) 01/27/18 04:58 Platelet Estimate SLIGHT DECREASED (NORMAL) 01/31/18 04:10 Platelet Morphology NORMAL (NORMAL) 01/27/18 04:58 RBC Morph Micro Appear NORMAL (NORMAL) 01/27/18 04:58 Eos Smear Source URINE 01/28/18 17:10 Eos Smear Total Cells NONE SEEN (NONE SEEN) 01/28/18 17:10 PT 9.3 SECONDS (9.5-11.5) L 01/29/18 21:26 INR 0.90 (0.5-1.4) 01/29/18 21:26 PTT (Actin FS) 46.6 SECONDS (26.0-38.0) H 01/29/18 21:26 Specimen Source Arterial 01/24/18 17:45 Sample Site Left Radial 01/24/18 17:45 pH 7.41 (7.35-7.45) 01/24/18 17:45 pCO2 32.0 mmHg (35.0-45.0) L 01/24/18 17:45 pO2 397.0 mmHg (80.0-100.0) H 01/24/18 17:45 HCO3 22.3 mEq/L (20.0-26.0) 01/24/18 17:45 Base Excess -3.5 mEq/L (-3.0-3.0) L 01/24/18 17:45 O2 Saturation 100.0 % (92.0-100.0) 01/24/18 17:45 Bebo Test YES 01/24/18 17:45 Vent Rate 14 01/24/18 17:45 Inspired O2 100 01/24/18 17:45 Tidal Volume 450 01/24/18 17:45 PEEP 5 01/24/18 17:45 Pressure (ins/psv/peep) NA 01/24/18 17:45 Critical Value E.BRIDGES 01/24/18 17:45 Sodium 136 mEq/L (136-145) 02/05/18 05:15 Potassium 3.9 mEq/L (3.5-5.1) 02/05/18 05:15 Chloride 102 mEq/L (98-107) 02/05/18 05:15 Carbon Dioxide 24.4 mEq/L (21.0-31.0) 02/05/18 05:15 Anion Gap 13.5 (7.0-16.0) 02/05/18 05:15 BUN 42 mg/dL (7-25) H 02/05/18 05:15 Creatinine 1.5 mg/dL (0.6-1.2) H 02/05/18 05:15 Est GFR ( Amer) TNP 02/05/18 05:15 Est GFR (Non-Af Amer) TNP 02/05/18 05:15 BUN/Creatinine Ratio 28.0 02/05/18 05:15 Glucose 111 mg/dL (70-105) H 02/05/18 05:15 POC Glucose 95 MG/DL (70 - 105) 02/05/18 11:31 Hemoglobin A1c % 5.1 % (4.0-6.0) 01/20/18 12:15 Plasma/Ser Osmolality 287 mOsmol/kg (280-301) 01/28/18 17:45 Whole Bld Lactic Acid 1.50 mmol/L (0.60-1.99) 01/28/18 13:40 Uric Acid 5.3 mg/dL (2.3-6.6) 01/30/18 05:06 Calcium 8.6 mg/dL (8.6-10.3) 02/05/18 05:15 Phosphorus 3.3 mg/dL (2.5-5.0) 01/30/18 05:06 Magnesium 2.3 mg/dL (1.9-2.7) 01/30/18 05:06 Iron 54 ug/dL (27-139) 01/20/18 12:50 TIBC 159 ug/dL (250-450) L 01/20/18 12:50 Iron Saturation 34 % (15-55) 01/20/18 12:50 Unsaturated IBC 105 ug/dL (118-369) L 01/20/18 12:50 Ferritin 1230 ng/mL (15-150) H 01/20/18 12:50 Total Bilirubin 1.7 mg/dL (0.3-1.0) H 02/05/18 05:15 Direct Bilirubin 0.07 mg/dL (0.0-0.2) 01/20/18 12:30 AST 200 U/L (13-39) H 02/05/18 05:15 ALT 43 U/L (7-52) 02/05/18 05:15 Alkaline Phosphatase 413 U/L (34-104) H 02/05/18 05:15 Troponin I 0.03 ng/mL (0.01-0.05) 01/20/18 12:15 C-Reactive Protein 4.3 mg/dL (0.0-0.9) H 01/20/18 12:50 B-Natriuretic Peptide 185.0 pg/mL (5.0-100.0) H 01/25/18 04:20 Total Protein 4.9 gm/dL (6.0-8.3) L 02/05/18 05:15 Albumin 3.6 gm/dL (3.7-5.3) L 02/05/18 05:15 Globulin 1.3 gm/dL 02/05/18 05:15 Albumin/Globulin Ratio 2.8 (1.0-1.8) H 02/05/18 05:15 Triglycerides 97 mg/dL (<150) 01/20/18 12:15 Cholesterol 195 mg/dL (<200) 01/20/18 12:15 LDL Cholesterol Direct 152 mg/dL (75-193) 01/20/18 12:15 HDL Cholesterol 40 mg/dL (23-92) 01/20/18 12:15 Lipase 108 U/L (11-82) H 01/20/18 12:15 Free T4 1.12 ng/dL (0.82-1.77) 01/20/18 12:50 TSH 0.06 uIU/ml (0.34-5.60) L 01/20/18 12:15 Urine Source [place] 01/28/18 17:10 Urine Color YELLOW 01/28/18 17:10 Urine Clarity CLOUDY (CLEAR) H 01/28/18 17:10 Urine pH 6.0 (4.6 - 8.0) 01/28/18 17:10 Ur Specific [place] 1.020 (1.005-1.030) 01/28/18 17:10 Urine Protein 100 mg/dL (NEGATIVE) H 01/28/18 17:10 Urine Glucose (UA) NEGATIVE mg/dL (NEGATIVE) 01/28/18 17:10 Urine Ketones NEGATIVE mg/dL (NEGATIVE) 01/28/18 17:10 Urine Blood MODERATE (NEGATIVE) H 01/28/18 17:10 Urine Nitrate NEGATIVE (NEGATIVE) 01/28/18 17:10 Urine Bilirubin NEGATIVE (NEGATIVE) 01/28/18 17:10 Urine Urobilinogen 0.2 E.U./dL (0.2 - 1.0) 01/28/18 17:10 Ur Leukocyte Esterase MODERATE (NEGATIVE) H 01/28/18 17:10 Urine RBC 5-10 /hpf (0-5) H 01/28/18 17:10 Urine WBC 10-25 /hpf (0-5) H 01/28/18 17:10 Ur Epithelial Cells OCCASIONAL /lpf (FEW) 01/28/18 17:10 Urine Bacteria OCCASIONAL /hpf (NONE SEEN) 01/28/18 17:10 Urine Yeast MANY /hpf (NONE SEEN) H 01/28/18 17:10 Ur Random Sodium 56 mmol/L 01/28/18 17:10 Urine Creatinine 39.0 mg/dl (28.0-217.0) 01/28/18 17:10 Vancomycin Trough 27.8 ug/mL (10-20) H 01/26/18 23:00 Random Vancomycin 22.6 ug/mL (5.0-40.0) 02/03/18 04:20 Blood Type O POSITIVE 02/03/18 16:58 Antibody Screen NEGATIVE 02/03/18 16:58 Crossmatch See Detail 02/03/18 16:58 - Physical Exam Vitals and I&O: Vital Signs Temp 99 F 02/05/18 12:00 Pulse 63 02/05/18 13:57 Resp 19 02/05/18 13:00 BP 124/62 02/05/18 13:00 Pulse Ox 100 02/05/18 13:57 Intake & Output 02/04/18 02/05/18 02/05/18 18:59 06:59 18:59 Intake Total 1510 760 100 Output Total 3060 100 Balance -1550 660 100 Weight (lbs) 54.431 kg 54.431 kg Intake: Intake, IV Amount 100 100 100 Meropenem 1 gm In Sodium 100 100 100 Chloride 0.9% 100 ml @ 100 mls/hr IV Q12H [facility] Rx #:[id number] Tube Feeding 360 360 Blood Product 750 Other 300 300 Output: Urine 60 100 Hemodialysis 3000 Other: # Bowel Movements 1 Stool Characteristics Soft Soft Brown Brown Weight Source Bedscale Bedscale Active Medications: Current Medications Acetaminophen (Tylenol) 650 mg PO Q4H PRN PRN Reason: MILD PAIN OR TEMP >100.4 Stop: 03/21/18 16:07 Al Hydrox/Mg Hydrox/Simethicone (Maalox) 30 ml PO Q6HR PRN PRN Reason: GI DISTRESS Stop: 03/21/18 16:28 Albuterol/Ipratropium (Duoneb Neb) 3 ml HHN Q6HRT [facility] Stop: 03/30/18 00:59 Last Admin: 02/05/18 13:57 Dose: 3 ml Amlodipine Besylate (Norvasc) 10 mg PO DAILY [facility] Stop: 04/02/18 16:59 Last Admin: 02/05/18 09:01 Dose: 10 mg Artificial Tears (Artificial Tears Ophth Soln) 1 drop EACH EYE Q2HR PRN PRN Reason: Dry Eye Stop: 03/27/18 09:28 Last Admin: 02/05/18 09:06 Dose: 1 drop Atorvastatin Calcium (Lipitor) 80 mg PO HS [facility] PRN Reason: Protocol Stop: 03/21/18 20:59 Last Admin: 02/04/18 20:31 Dose: 80 mg Bisacodyl (Dulcolax 10 Mg Supp) 10 mg RC DAILY PRN PRN Reason: Constipation Stop: 03/21/18 16:07 Budesonide (Pulmicort) 0.5 mg HHN BIDRT [facility] Stop: 04/01/18 18:59 Last Admin: 02/05/18 07:16 Dose: 0.5 mg Carvedilol (Coreg) 12.5 mg PO BID [facility] Stop: 03/21/18 16:59 Last Admin: 02/05/18 09:00 Dose: 12.5 mg Chlorhexidine Gluconate (Peridex) 15 ml MM 0800,2000 [facility] Stop: 03/27/18 07:59 Last Admin: 02/05/18 09:00 Dose: 15 ml Dextrose (D50w) 50 ml IVP PRN PRN PRN Reason: HYPOGLYCEMIA Stop: 03/21/18 16:07 Diltiazem HCl (Cardizem) 60 mg PO Q6HR [facility] Stop: 03/21/18 17:59 Last Admin: 02/05/18 12:43 Dose: Not Given Enalaprilat (Vasotec) 2.5 mg IVP Q6HR PRN PRN Reason: SBP ABOVE 160 Stop: 03/25/18 11:59 Last Admin: 02/04/18 16:58 Dose: 2.5 mg Glucagon (Glucagen) 1 mg IVP PRN PRN PRN Reason: HYPOGLYCEMIA Stop: 03/21/18 16:25 Meropenem 1 gm/ Sodium (Chloride) 100 mls @ 100 mls/hr IV Q12H [facility] Stop: 03/26/18 08:59 Last Infusion: 02/05/18 09:55 Dose: Infused Phenylephrine HCl 10 mg/ (Sodium Chloride) 250 mls @ 75 mls/hr IV TITR [facility]; 50 MCG/MIN PRN Reason: Protocol Stop: 03/25/18 20:14 Norepinephrine Bitartrate 4 mg (/ Sodium Chloride) 254 mls @ 15.24 mls/hr IV TITR [facility]; 4 MCG/MIN PRN Reason: Protocol Stop: 03/26/18 08:14 Last Titration: 02/03/18 20:50 Dose: 0 mcg/min, 0 mls/hr Insulin Aspart (Novolog Insulin Sliding Scale) 0 units SUBQ Q6HR [facility] PRN Reason: Protocol Stop: 03/27/18 00:00 Last Admin: 02/05/18 12:43 Dose: Not Given Losartan Potassium (Cozaar) 100 mg PO DAILY [facility] Stop: 04/02/18 16:59 Last Admin: 02/05/18 10:06 Dose: 100 mg Magnesium Hydroxide (Milk Of Magnesia) 30 ml PO DAILY PRN PRN Reason: IF NO BM IN TWO DAYS Stop: 03/21/18 16:07 Metoprolol Tartrate (Lopressor) 5 mg IV Q4H PRN PRN Reason: Tachycardia Stop: 03/25/18 12:29 Miscellaneous (Misc Oral Tab) 1 tab PO BID [facility] Stop: 02/08/18 09:01 Last Admin: 02/05/18 09:02 Dose: 1 tab Morphine Sulfate (Morphine) 1 mg IV Q4HR PRN PRN Reason: MOD TO SEVERE PAIN Stop: 04/02/18 15:59 Last Admin: 02/05/18 01:29 Dose: 1 mg Multivitamins/Vitamin C (Theragran) 1 tab PO DAILY [facility] Stop: 03/22/18 08:59 Last Admin: 02/05/18 09:00 Dose: 1 tab Ondansetron HCl (Zofran Odt) 4 mg PO Q6H PRN PRN Reason: Nausea / Vomiting Stop: 03/21/18 16:07 Pantoprazole Sodium (Protonix) 40 mg NG DAILY [facility] Stop: 03/28/18 16:59 Last Admin: 02/05/18 08:59 Dose: 40 mg Prednisone (Deltasone) 10 mg PO DAILY [facility] Stop: 03/22/18 08:59 Last Admin: 02/05/18 09:00 Dose: 10 mg Sodium Phosphate (Fleet Enema) 135 ml RC DAILY PRN PRN Reason: Constipation Stop: 03/21/18 16:07 Vitamin A (Vitamin A & D) 5 gm TP DAILY [facility] Stop: 03/22/18 08:59 Last Admin: 02/05/18 09:01 Dose: 5 gm General: Mild distress HEENT: Atraumatic, Mucous membr. moist/pink, Other (facial edema) Neck: Supple, +2 carotid pulse wo bruit Cardiovascular: Regular rate, Normal S1, Normal S2 Lungs: Other (decreased BS, coarse rhonchi) Abdomen: Bowel sounds, Soft Extremities: Edema, Other (less edema) Neurological: Sensation intact Skin: no Rash Psych/Mental Status: Other (obtunded) - Procedures Procedures: Procedures Procedure Code Date INSERT EMERGENCY AIRWAY 48560 01/20/18 INSERTION OF ENDOTRACHEAL AIRWAY INTO [place], VIA OPENING [id number] 01/20/18 RESPIRATORY VENTILATION, GREATER THAN 96 CONSECUTIVE HOURS [id number] 01/20/18 VENT MGMT INPAT INIT DAY 60141 01/20/18 Assessment/Plan - Problem List Patient Problems: All Active Problems ELEVATED WBC, LUNG INFILTRATES (Acute) - Assessment Assessment: LAURENCE Anuric 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 A. Fib Anemia of acute on CD non Gap met acid yeast UTI Anasarca - Plan Plan: Lab - Result Diagrams 01/29/18 05:10 01/29/18 05:10 Current Medications Acetaminophen (Tylenol) 650 mg PO Q4H PRN PRN Reason: MILD PAIN OR TEMP >100.4 Stop: 03/21/18 16:07 Al Hydrox/Mg Hydrox/Simethicone (Maalox) 30 ml PO Q6HR PRN PRN Reason: GI DISTRESS Stop: 03/21/18 16:28 Albuterol/Ipratropium (Duoneb Neb) 3 ml HHN Q6HRT [facility] Stop: 03/30/18 00:59 Last Admin: 01/29/18 13:21 Dose: 3 ml Artificial Tears (Artificial Tears Ophth Soln) 1 drop EACH EYE Q2HR PRN PRN Reason: Dry Eye Stop: 03/27/18 09:28 Last Admin: 01/26/18 10:13 Dose: 1 drop Atorvastatin Calcium (Lipitor) 80 mg PO HS [facility] PRN Reason: Protocol Stop: 03/21/18 20:59 Last Admin: 01/28/18 20:32 Dose: 80 mg Bisacodyl (Dulcolax 10 Mg Supp) 10 mg RC DAILY PRN PRN Reason: Constipation Stop: 03/21/18 16:07 Carvedilol (Coreg) 12.5 mg PO BID [facility] Stop: 03/21/18 16:59 Last Admin: 01/29/18 08:10 Dose: 12.5 mg Chlorhexidine Gluconate (Peridex) 15 ml MM 0800,2000 [facility] Stop: 03/27/18 07:59 Last Admin: 01/29/18 08:00 Dose: 15 ml Dextrose (D50w) 50 ml IVP PRN PRN PRN Reason: HYPOGLYCEMIA Stop: 03/21/18 16:07 Diltiazem HCl (Cardizem) 60 mg PO Q6HR [facility] Stop: 03/21/18 17:59 Last Admin: 01/29/18 12:10 Dose: 60 mg Enalaprilat (Vasotec) 2.5 mg IVP Q6HR PRN PRN Reason: SBP ABOVE 160 Stop: 03/25/18 11:59 Last Admin: 01/24/18 15:13 Dose: 2.5 mg Glucagon (Glucagen) 1 mg IVP PRN PRN PRN Reason: HYPOGLYCEMIA Stop: 03/21/18 16:25 Meropenem 1 gm/ Sodium (Chloride) 100 mls @ 100 mls/hr IV Q12H [facility] Stop: 03/26/18 08:59 Last Infusion: 01/29/18 10:30 Dose: Infused Phenylephrine HCl 10 mg/ (Sodium Chloride) 250 mls @ 75 mls/hr IV TITR [facility]; 50 MCG/MIN PRN Reason: Protocol Stop: 03/25/18 20:14 Norepinephrine Bitartrate 4 mg (/ Sodium Chloride) 254 mls @ 15.24 mls/hr IV TITR [facility]; 4 MCG/MIN PRN Reason: Protocol Stop: 03/26/18 08:14 Last Titration: 01/27/18 00:22 Dose: 0 mcg/min, 0 mls/hr Potassium Chloride/Dextrose/Sod Cl (D5-0.9ns W/Kcl 20meq) 1,000 mls @ 75 mls/ hr IV .[id number] [facility] Stop: 03/28/18 14:06 Last Admin: 01/29/18 12:54 Dose: 125 mls/hr Insulin Aspart (Novolog Insulin Sliding Scale) 0 units SUBQ Q6HR [facility] PRN Reason: Protocol Stop: 03/27/18 00:00 Last Admin: 01/29/18 12:09 Dose: 2 units Magnesium Hydroxide (Milk Of Magnesia) 30 ml PO DAILY PRN PRN Reason: IF NO BM IN TWO DAYS Stop: 03/21/18 16:07 Megestrol Acetate (Megace) 400 mg PO BID [facility] Stop: 03/21/18 16:59 Last Admin: 01/29/18 08:10 Dose: 400 mg Metoprolol Tartrate (Lopressor) 5 mg IV Q4H PRN PRN Reason: Tachycardia Stop: 03/25/18 12:29 Miscellaneous (Vancomycin Iv Per Pharmacy) 1 ea MC PRN [facility] Stop: 03/25/18 17:59 Multivitamins/Vitamin C (Theragran) 1 tab PO DAILY [facility] Stop: 03/22/18 08:59 Last Admin: 01/29/18 08:10 Dose: 1 tab Ondansetron HCl (Zofran Odt) 4 mg PO Q6H PRN PRN Reason: Nausea / Vomiting Stop: 03/21/18 16:07 Pantoprazole Sodium (Protonix) 40 mg NG DAILY [facility] Stop: 03/28/18 16:59 Last Admin: 01/29/18 08:10 Dose: 40 mg Prednisone (Deltasone) 10 mg PO DAILY [facility] Stop: 03/22/18 08:59 Last Admin: 01/29/18 08:10 Dose: 10 mg Sodium Bicarbonate (Sodium Bicarbonate) 650 mg PO BID [facility] PRN Reason: Protocol Stop: 03/29/18 16:59 Last Admin: 01/29/18 08:10 Dose: 650 mg Sodium Phosphate (Fleet Enema) 135 ml RC DAILY PRN PRN Reason: Constipation Stop: 03/21/18 16:07 Vitamin A (Vitamin A & D) 5 gm TP DAILY [facility] Stop: 03/22/18 08:59 Last Admin: 01/29/18 12:14 Dose: 5 Lab - Result Diagrams 02/05/18 07:00 02/05/18 05:15 kidney fnc slight improvement facial/peripheral edema decrease IVF & DC K replace Ca, P04, Mg start Diflucan on top of Meropenem new Jose Maria placed today WBC up to 19.9 administer [id number] initiated on HD due to anuria, fluid retention, acidosis, hyperkalemia Hgb/Hct down to 6.6/19.5, transfuse 3 U PRBC w/dialysis CXR still w/ b/l small effusion will still need dialysis due to peripheral edema, b/l effusions; aware of Cr. of 1.5 but remains anuric Nutritional Asmnt/Malnutr-PDOC - Dietary Evaluation Malnutrition Findings (Please click <Entered> for more info): Nutritional Asmnt/Malnutrition Start: 01/21/18 16: 32 Text: Status: Complete Freq: Document 01/21/18 16:32 LCHENG (Rec: 01/21/18 16:48 LCHENG [email or web address]) Nutritional Asmnt/Malnutrition Patient General Information Nutritional Screening High Risk Consult Diagnosis left lung infiltrate Pertinent Medical Hx/Surgical Hx dementia, HTN, hyperlipidemia per ER notes, no H&P at this time Subjective Information Pt seen sleeping at time of visit, not able to wake up for lunch. Per [employer], pt only had cereal and scrambled eggs this morning, not able to chew the [place] toast d/t weakness. Current Diet Order/ Nutrition Support low cholesterol 300gm Pertinent Medications D5-0.45ns, novolog, megace, theragran, piperacillin, vit A &D Pertinent Labs 01/21 BUN 32, Glucose 180, POC 142-261 01/20 A1c 5.1, POC 127-165 Nutritional Hx/Data Height 1.6 m Height (Calculated Centimeters) 160.0 Current Weight (lbs) 37.648 kg Weight (Calculated Kilograms) 37.6 Weight (Calculated Grams) 12868.2 [place] Body Weight 115 Body Mass Index (BMI) 14.7 Weight Status Underweight GI Symptoms GI Symptoms None Last BM none Difficult in: None Skin Integrity/Comment: reddened to vagina and coccyx Current %PO Poor (25-49%) Estimated Nutritional Goals Calories/Kcals/Kg 25-30 Kcals Calculated 7260-2355 Protein g/k Protein Calculated 52 Fluid: ml 1300-1560ml (1ml/kcal) Nutritional Problem 2. Problem Problem chewing difficulty Etiology weakness, sleepy Signs/Symptoms: pt need for mech soft diet 1. Problem Problem altered nutrition related lab values Etiology hyperglycemia Signs/Symptoms: Glucose 180, POC 127-261 Intervention/Recommendation Comments 1. Recommend Mech soft ground diet with Boost BID to increase nutrition intake. 2. Monitor PO intake, wt, labs and skin integrity 3. F/U as high risk in 2-3 days, 01/23-01/24 Expected Outcomes/Goals Expected Outcomes/Goals 1. PO intake to meet at least 75% of nutritional needs. 2. Wt stability, skin to remain intact, labs to approach WNL.
[2018-02-06] MEDS: INSULIN ASPART SLIDING SCALE 100 UNITS/ML UNIT SUBQ SCH ×5 (00:16→23:51)
[2018-02-06] MEDS: Diltiazem 30 mg Tab PO SCH ×4 (00:17→18:47)
[2018-02-06] MEDS: Albuterol/Ipratropium Neb 3 ML AERS HHN SCH ×4 (01:16→18:51)
[2018-02-06 05:24] LABS: HEMATOCRIT 41.7 % (41.0-60); HEMOGLOBIN 14.4 gm/dL (12-16); MANUAL DIFF REQUIRED? YES; MEAN CELL VOLUME 89.3 fl (81-100); MEAN CORPUSCULAR HEMOGLOBIN 30.9 pg (27.0-31.0); MEAN CORPUSCULAR HGB CONC 34.6 pg (28.0-36.0); MEAN PLATELET VOLUME 8.5 fl; PLATELET COUNT 97 Th/cmm (150-400); RED BLOOD COUNT 4.67 Mil/cmm (3.80-5.20); RED CELL DISTRIBUTION WIDTH 17.7 % (11.5-20.0)
[2018-02-06 05:34] LABS: WHITE BLOOD COUNT 20.9 Th/cmm (4.8-10.8)
[2018-02-06 06:13] LABS: ANION GAP 12.4 (7.0-16.0); BUN - UREA NITROGEN 55 mg/dL (7-25); CALCIUM SERUM 8.4 mg/dL (8.6-10.3); CARBON DIOXIDE 25.2 mEq/L (21.0-31.0); CHLORIDE 102 mEq/L (98-107); CREATININE - SERUM 1.7 mg/dL (0.6-1.2); GLUCOSE 112 mg/dL (70-105); POTASSIUM SERUM 3.6 mEq/L (3.5-5.1); SODIUM SERUM 136 mEq/L (136-145)
[2018-02-06 06:23] LABS: BAND NEUTROPHILE 7 % (0-10); EOSINOPHIL 2 % (0-5); LYMPHOCYTE 7 % (20-50); MONOCYTE 5 % (2-10); NEUTROPHILS 79 % (40-80); TOTAL CELLS COUNTED 100
[2018-02-06 06:24] LABS: PLATELET ESTIMATE DECREASED PLATELETS (NORMAL)
[2018-02-06] MEDS: Budesonide 0.5 Mg/2 mL Ud HHN SCH (07:24)
[2018-02-06] MEDS: Chlorhexidine Gluconate 0.12% 15mL Mouthwash MM SCH ×2 (08:30→20:45)
[2018-02-06] MEDS: Pantoprazole 40 mg/Packet NG SCH (09:23)
[2018-02-06] MEDS: Multivitamin Tab PO SCH (09:23)
[2018-02-06] MEDS: VORICONAZOLE 200 MG PO SCH ×2 (09:24→17:45)
[2018-02-06] MEDS: Vitamin A/Vitamin D 5 gm Packet TP SCH (09:24)
[2018-02-06] MEDS: Meropenem 1 GM in Sodium Chloride 0.9% 100 ML IV SCH ×2 (09:25→20:45)
--- NOTE | 2018-02-06 11:11 | General Progress Note ---
Subjective - Review of Systems Events since last encounter: tolerationg meds well Objective - Results Result Diagrams: 02/06/18 05:15 02/06/18 05:15 Recent Labs: Laboratory Last Values WBC 20.9 Th/cmm (4.8-10.8) H* 02/06/18 05:15 RBC 4.67 Mil/cmm (3.80-5.20) 02/06/18 05:15 Hgb 14.4 gm/dL (12-16) 02/06/18 05:15 Hct 41.7 % (41.0-60) 02/06/18 05:15 MCV 89.3 fl (81-100) 02/06/18 05:15 MCH 30.9 pg (27.0-31.0) 02/06/18 05:15 MCHC Differential 34.6 pg (28.0-36.0) 02/06/18 05:15 RDW 17.7 % (11.5-20.0) 02/06/18 05:15 Plt Count 97 Th/cmm (150-400) L 02/06/18 05:15 MPV 8.5 fl 02/06/18 05:15 Neutrophils % 87.3 % (40.0-80.0) H 02/05/18 07:00 Band Neutrophils % 7 % (0-10) 02/06/18 05:15 Lymphocytes % 7.0 % (20.0-50.0) L 02/05/18 07:00 Monocytes % 4.3 % (2.0-10.0) 02/05/18 07:00 Eosinophils % 1.4 % (0.0-5.0) 02/05/18 07:00 Basophils % 0.0 % (0.0-2.0) 02/05/18 07:00 Neutrophils (Manual) 79 % (40-80) 02/06/18 05:15 Lymphocytes 7 % (20-50) L 02/06/18 05:15 Monocytes 5 % (2-10) 02/06/18 05:15 Eosinophils 2 % (0-5) 02/06/18 05:15 Basophils 0 % (0-3) 01/27/18 04:58 Platelet Estimate DECREASED PLATELETS (NORMAL) 02/06/18 05:15 Platelet Morphology NORMAL (NORMAL) 01/27/18 04:58 RBC Morph Micro Appear NORMAL (NORMAL) 01/27/18 04:58 Eos Smear Source URINE 01/28/18 17:10 Eos Smear Total Cells NONE SEEN (NONE SEEN) 01/28/18 17:10 PT 9.3 SECONDS (9.5-11.5) L 01/29/18 21:26 INR 0.90 (0.5-1.4) 01/29/18 21:26 PTT (Actin FS) 46.6 SECONDS (26.0-38.0) H 01/29/18 21:26 Specimen Source Arterial 01/24/18 17:45 Sample Site Left Radial 01/24/18 17:45 pH 7.41 (7.35-7.45) 01/24/18 17:45 pCO2 32.0 mmHg (35.0-45.0) L 01/24/18 17:45 pO2 397.0 mmHg (80.0-100.0) H 01/24/18 17:45 HCO3 22.3 mEq/L (20.0-26.0) 01/24/18 17:45 Base Excess -3.5 mEq/L (-3.0-3.0) L 01/24/18 17:45 O2 Saturation 100.0 % (92.0-100.0) 01/24/18 17:45 Bebo Test YES 01/24/18 17:45 Vent Rate 14 01/24/18 17:45 Inspired O2 100 01/24/18 17:45 Tidal Volume 450 01/24/18 17:45 PEEP 5 01/24/18 17:45 Pressure (ins/psv/peep) NA 01/24/18 17:45 Critical Value E.BRIDGES 01/24/18 17:45 Sodium 136 mEq/L (136-145) 02/06/18 05:15 Potassium 3.6 mEq/L (3.5-5.1) 02/06/18 05:15 Chloride 102 mEq/L (98-107) 02/06/18 05:15 Carbon Dioxide 25.2 mEq/L (21.0-31.0) 02/06/18 05:15 Anion Gap 12.4 (7.0-16.0) 02/06/18 05:15 BUN 55 mg/dL (7-25) H 02/06/18 05:15 Creatinine 1.7 mg/dL (0.6-1.2) H 02/06/18 05:15 Est GFR ( Amer) TNP 02/06/18 05:15 Est GFR (Non-Af Amer) TNP 02/06/18 05:15 BUN/Creatinine Ratio 32.4 02/06/18 05:15 Glucose 112 mg/dL (70-105) H 02/06/18 05:15 POC Glucose 103 MG/DL (70 - 105) 02/06/18 05:43 Hemoglobin A1c % 5.1 % (4.0-6.0) 01/20/18 12:15 Plasma/Ser Osmolality 287 mOsmol/kg (280-301) 01/28/18 17:45 Whole Bld Lactic Acid 1.50 mmol/L (0.60-1.99) 01/28/18 13:40 Uric Acid 5.3 mg/dL (2.3-6.6) 01/30/18 05:06 Calcium 8.4 mg/dL (8.6-10.3) L 02/06/18 05:15 Phosphorus 3.3 mg/dL (2.5-5.0) 01/30/18 05:06 Magnesium 2.3 mg/dL (1.9-2.7) 01/30/18 05:06 Iron 54 ug/dL (27-139) 01/20/18 12:50 TIBC 159 ug/dL (250-450) L 01/20/18 12:50 Iron Saturation 34 % (15-55) 01/20/18 12:50 Unsaturated IBC 105 ug/dL (118-369) L 01/20/18 12:50 Ferritin 1230 ng/mL (15-150) H 01/20/18 12:50 Total Bilirubin 1.7 mg/dL (0.3-1.0) H 02/05/18 05:15 Direct Bilirubin 0.07 mg/dL (0.0-0.2) 01/20/18 12:30 AST 200 U/L (13-39) H 02/05/18 05:15 ALT 43 U/L (7-52) 02/05/18 05:15 Alkaline Phosphatase 413 U/L (34-104) H 02/05/18 05:15 Troponin I 0.03 ng/mL (0.01-0.05) 01/20/18 12:15 C-Reactive Protein 4.3 mg/dL (0.0-0.9) H 01/20/18 12:50 B-Natriuretic Peptide 185.0 pg/mL (5.0-100.0) H 01/25/18 04:20 Total Protein 4.9 gm/dL (6.0-8.3) L 02/05/18 05:15 Albumin 3.6 gm/dL (3.7-5.3) L 02/05/18 05:15 Globulin 1.3 gm/dL 02/05/18 05:15 Albumin/Globulin Ratio 2.8 (1.0-1.8) H 02/05/18 05:15 Triglycerides 97 mg/dL (<150) 01/20/18 12:15 Cholesterol 195 mg/dL (<200) 01/20/18 12:15 LDL Cholesterol Direct 152 mg/dL (75-193) 01/20/18 12:15 HDL Cholesterol 40 mg/dL (23-92) 01/20/18 12:15 Lipase 108 U/L (11-82) H 01/20/18 12:15 Free T4 1.12 ng/dL (0.82-1.77) 01/20/18 12:50 TSH 0.06 uIU/ml (0.34-5.60) L 01/20/18 12:15 Urine Source [place] 01/28/18 17:10 Urine Color YELLOW 01/28/18 17:10 Urine Clarity CLOUDY (CLEAR) H 01/28/18 17:10 Urine pH 6.0 (4.6 - 8.0) 01/28/18 17:10 Ur Specific [place] 1.020 (1.005-1.030) 01/28/18 17:10 Urine Protein 100 mg/dL (NEGATIVE) H 01/28/18 17:10 Urine Glucose (UA) NEGATIVE mg/dL (NEGATIVE) 01/28/18 17:10 Urine Ketones NEGATIVE mg/dL (NEGATIVE) 01/28/18 17:10 Urine Blood MODERATE (NEGATIVE) H 01/28/18 17:10 Urine Nitrate NEGATIVE (NEGATIVE) 01/28/18 17:10 Urine Bilirubin NEGATIVE (NEGATIVE) 01/28/18 17:10 Urine Urobilinogen 0.2 E.U./dL (0.2 - 1.0) 01/28/18 17:10 Ur Leukocyte Esterase MODERATE (NEGATIVE) H 01/28/18 17:10 Urine RBC 5-10 /hpf (0-5) H 01/28/18 17:10 Urine WBC 10-25 /hpf (0-5) H 01/28/18 17:10 Ur Epithelial Cells OCCASIONAL /lpf (FEW) 01/28/18 17:10 Urine Bacteria OCCASIONAL /hpf (NONE SEEN) 01/28/18 17:10 Urine Yeast MANY /hpf (NONE SEEN) H 01/28/18 17:10 Ur Random Sodium 56 mmol/L 01/28/18 17:10 Urine Creatinine 39.0 mg/dl (28.0-217.0) 01/28/18 17:10 Stool Occult Blood NEGATIVE (NEGATIVE) 02/05/18 14:50 Vancomycin Trough 27.8 ug/mL (10-20) H 01/26/18 23:00 Random Vancomycin 22.6 ug/mL (5.0-40.0) 02/03/18 04:20 Blood Type O POSITIVE 02/03/18 16:58 Antibody Screen NEGATIVE 02/03/18 16:58 Crossmatch See Detail 02/03/18 16:58 - Physical Exam Vitals and I&O: Vital Signs Temp 98.6 F 02/06/18 10:45 Pulse 79 02/06/18 10:45 Resp 18 02/06/18 10:45 BP 115/55 02/06/18 10:45 Pulse Ox 100 02/06/18 10:45 Intake & Output 02/05/18 02/06/18 02/06/18 18:59 06:59 18:59 Intake Total 100 1220 100 Output Total 350 Balance 100 870 100 Weight (lbs) 58.06 kg Intake: Intake, IV Amount 100 100 100 Meropenem 1 gm In Sodium 100 100 100 Chloride 0.9% 100 ml @ 100 mls/hr IV Q12H [facility] Rx #:[id number] Norepinephrine 4 mg In 0 Sodium Chloride 0.9% 250 ml @ 4 MCG/MIN 15.24 mls/ hr IV TITR [facility] Rx#: [id number] Tube Feeding 720 Other 400 Output: Urine 350 Other: # Bowel Movements 1 Stool Characteristics Soft Soft Brown Brown Weight Source Bedscale Active Medications: Current Medications Acetaminophen (Tylenol) 650 mg PO Q4H PRN PRN Reason: MILD PAIN OR TEMP >100.4 Stop: 03/21/18 16:07 Al Hydrox/Mg Hydrox/Simethicone (Maalox) 30 ml PO Q6HR PRN PRN Reason: GI DISTRESS Stop: 03/21/18 16:28 Albuterol/Ipratropium (Duoneb Neb) 3 ml HHN Q6HRT [facility] Stop: 03/30/18 00:59 Last Admin: 02/06/18 07:10 Dose: 3 ml Amlodipine Besylate (Norvasc) 10 mg PO DAILY [facility] Stop: 04/02/18 16:59 Last Admin: 02/06/18 09:26 Dose: Not Given Artificial Tears (Artificial Tears Ophth Soln) 1 drop EACH EYE Q2HR PRN PRN Reason: Dry Eye Stop: 03/27/18 09:28 Last Admin: 02/05/18 09:06 Dose: 1 drop Atorvastatin Calcium (Lipitor) 80 mg PO HS [facility] PRN Reason: Protocol Stop: 03/21/18 20:59 Last Admin: 02/05/18 20:08 Dose: 80 mg Bisacodyl (Dulcolax 10 Mg Supp) 10 mg RC DAILY PRN PRN Reason: Constipation Stop: 03/21/18 16:07 Budesonide (Pulmicort) 0.5 mg HHN BIDRT [facility] Stop: 04/01/18 18:59 Last Admin: 02/06/18 07:24 Dose: 0.5 mg Carvedilol (Coreg) 12.5 mg PO BID [facility] Stop: 03/21/18 16:59 Last Admin: 02/06/18 09:26 Dose: Not Given Chlorhexidine Gluconate (Peridex) 15 ml MM 0800,2000 [facility] Stop: 03/27/18 07:59 Last Admin: 02/06/18 08:30 Dose: 15 ml Dextrose (D50w) 50 ml IVP PRN PRN PRN Reason: HYPOGLYCEMIA Stop: 03/21/18 16:07 Diltiazem HCl (Cardizem) 60 mg PO Q6HR [facility] Stop: 03/21/18 17:59 Last Admin: 02/06/18 06:42 Dose: Not Given Enalaprilat (Vasotec) 2.5 mg IVP Q6HR PRN PRN Reason: SBP ABOVE 160 Stop: 03/25/18 11:59 Last Admin: 02/04/18 16:58 Dose: 2.5 mg Glucagon (Glucagen) 1 mg IVP PRN PRN PRN Reason: HYPOGLYCEMIA Stop: 03/21/18 16:25 Meropenem 1 gm/ Sodium (Chloride) 100 mls @ 100 mls/hr IV Q12H [facility] Stop: 03/26/18 08:59 Last Infusion: 02/06/18 10:25 Dose: Infused Phenylephrine HCl 10 mg/ (Sodium Chloride) 250 mls @ 75 mls/hr IV TITR [facility]; 50 MCG/MIN PRN Reason: Protocol Stop: 03/25/18 20:14 Norepinephrine Bitartrate 4 mg (/ Sodium Chloride) 254 mls @ 15.24 mls/hr IV TITR [facility]; 4 MCG/MIN PRN Reason: Protocol Stop: 03/26/18 08:14 Last Admin: 02/06/18 10:15 Dose: 4 mcg/min, 15.24 mls/hr Insulin Aspart (Novolog Insulin Sliding Scale) 0 units SUBQ Q6HR [facility] PRN Reason: Protocol Stop: 03/27/18 00:00 Last Admin: 02/06/18 06:35 Dose: Not Given Losartan Potassium (Cozaar) 100 mg PO DAILY [facility] Stop: 04/02/18 16:59 Last Admin: 02/06/18 09:26 Dose: Not Given Magnesium Hydroxide (Milk Of Magnesia) 30 ml PO DAILY PRN PRN Reason: IF NO BM IN TWO DAYS Stop: 03/21/18 16:07 Metoprolol Tartrate (Lopressor) 5 mg IV Q4H PRN PRN Reason: Tachycardia Stop: 03/25/18 12:29 Miscellaneous (Misc Oral Tab) 1 tab PO BID [facility] Stop: 02/08/18 09:01 Last Admin: 02/06/18 09:24 Dose: 1 tab Morphine Sulfate (Morphine) 1 mg IV Q4HR PRN PRN Reason: MOD TO SEVERE PAIN Stop: 04/02/18 15:59 Last Admin: 02/05/18 01:29 Dose: 1 mg Multivitamins/Vitamin C (Theragran) 1 tab PO DAILY [facility] Stop: 03/22/18 08:59 Last Admin: 02/06/18 09:23 Dose: 1 tab Ondansetron HCl (Zofran Odt) 4 mg PO Q6H PRN PRN Reason: Nausea / Vomiting Stop: 03/21/18 16:07 Pantoprazole Sodium (Protonix) 40 mg NG DAILY [facility] Stop: 03/28/18 16:59 Last Admin: 02/06/18 09:23 Dose: 40 mg Prednisone (Deltasone) 10 mg PO DAILY [facility] Stop: 03/22/18 08:59 Last Admin: 02/06/18 09:24 Dose: 10 mg Sodium Phosphate (Fleet Enema) 135 ml RC DAILY PRN PRN Reason: Constipation Stop: 03/21/18 16:07 Vitamin A (Vitamin A & D) 5 gm TP DAILY [facility] Stop: 03/22/18 08:59 Last Admin: 02/06/18 09:24 Dose: 5 gm General: Mild distress HEENT: Atraumatic, Mucous membr. moist/pink, Other (facial edema) Neck: Supple, +2 carotid pulse wo bruit Cardiovascular: Regular rate, Normal S1, Normal S2 Lungs: Other (decreased BS, coarse rhonchi) Abdomen: Bowel sounds, Soft Extremities: Edema, Other (less edema) Neurological: Sensation intact Skin: no Rash Psych/Mental Status: Other (obtunded) - Procedures Procedures: Procedures Procedure Code Date INSERT EMERGENCY AIRWAY 57271 01/20/18 INSERTION OF ENDOTRACHEAL AIRWAY INTO [place]HE[place], VIA OPENING [id number] 01/20/18 RESPIRATORY VENTILATION, GREATER THAN 96 CONSECUTIVE HOURS [id number] 01/20/18 VENT MGMT INPAT INIT DAY 20782 01/20/18 Assessment/Plan - Problem List Patient Problems: All Active Problems Dementia (Acute) F03.90 ELEVATED WBC, LUNG INFILTRATES (Acute) Leukocytosis (Acute) D72.829 Pneumonia (Acute) J18.9 - Plan Plan: as per order sheet Nutritional Asmnt/Malnutr-PDOC - Dietary Evaluation Malnutrition Findings (Please click <Entered> for more info): Nutritional Asmnt/Malnutrition Start: 01/21/18 16: 32 Text: Status: Complete Freq: Document 01/21/18 16:32 TROY (Rec: 01/21/18 16:48 TROY [id number]) Nutritional Asmnt/Malnutrition Patient General Information Nutritional Screening High Risk Consult Diagnosis left lung infiltrate Pertinent Medical Hx/Surgical Hx dementia, HTN, hyperlipidemia per ER notes, no H&P at this time Subjective Information Pt seen sleeping at time of visit, not able to wake up for lunch. Per [facility], pt only had cereal and scrambled eggs this morning, not able to chew the [place] toast d/t weakness. Current Diet Order/ Nutrition Support low cholesterol 300gm Pertinent Medications D5-0.45ns, novolog, megace, theragran, piperacillin, vit A &D Pertinent Labs 01/21 BUN 32, Glucose 180, POC 142-261 01/20 A1c 5.1, POC 127-165 Nutritional Hx/Data Height 1.6 m Height (Calculated Centimeters) 160.0 Current Weight (lbs) 37.648 kg Weight (Calculated Kilograms) 37.6 Weight (Calculated Grams) 28869.2 [place] Body Weight 115 Body Mass Index (BMI) 14.7 Weight Status Underweight GI Symptoms GI Symptoms None Last BM none Difficult in: None Skin Integrity/Comment: reddened to vagina and coccyx Current %PO Poor (25-49%) Estimated Nutritional Goals Calories/Kcals/Kg 25-30 Kcals Calculated 1718-6313 Protein g/k Protein Calculated 52 Fluid: ml 1300-1560ml (1ml/kcal) Nutritional Problem 2. Problem Problem chewing difficulty Etiology weakness, sleepy Signs/Symptoms: pt need for mech soft diet 1. Problem Problem altered nutrition related lab values Etiology hyperglycemia Signs/Symptoms: Glucose 180, POC 127-261 Intervention/Recommendation Comments 1. Recommend Mech soft ground diet with Boost BID to increase nutrition intake. 2. Monitor PO intake, wt, labs and skin integrity 3. F/U as high risk in 2-3 days, 01/23-01/24 Expected Outcomes/Goals Expected Outcomes/Goals 1. PO intake to meet at least 75% of nutritional needs. 2. Wt stability, skin to remain intact, labs to approach WNL.
--- NOTE | 2018-02-06 14:26 | General Progress Note ---
Subjective - Review of Systems Service Date: 02/06/18 Subjective: stuporous today, on vent Objective - Results Result Diagrams: 02/06/18 05:15 02/06/18 05:15 Recent Labs: Laboratory Last Values WBC 20.9 Th/cmm (4.8-10.8) H* 02/06/18 05:15 RBC 4.67 Mil/cmm (3.80-5.20) 02/06/18 05:15 Hgb 14.4 gm/dL (12-16) 02/06/18 05:15 Hct 41.7 % (41.0-60) 02/06/18 05:15 MCV 89.3 fl (81-100) 02/06/18 05:15 MCH 30.9 pg (27.0-31.0) 02/06/18 05:15 MCHC Differential 34.6 pg (28.0-36.0) 02/06/18 05:15 RDW 17.7 % (11.5-20.0) 02/06/18 05:15 Plt Count 97 Th/cmm (150-400) L 02/06/18 05:15 MPV 8.5 fl 02/06/18 05:15 Neutrophils % 87.3 % (40.0-80.0) H 02/05/18 07:00 Band Neutrophils % 7 % (0-10) 02/06/18 05:15 Lymphocytes % 7.0 % (20.0-50.0) L 02/05/18 07:00 Monocytes % 4.3 % (2.0-10.0) 02/05/18 07:00 Eosinophils % 1.4 % (0.0-5.0) 02/05/18 07:00 Basophils % 0.0 % (0.0-2.0) 02/05/18 07:00 Neutrophils (Manual) 79 % (40-80) 02/06/18 05:15 Lymphocytes 7 % (20-50) L 02/06/18 05:15 Monocytes 5 % (2-10) 02/06/18 05:15 Eosinophils 2 % (0-5) 02/06/18 05:15 Basophils 0 % (0-3) 01/27/18 04:58 Platelet Estimate DECREASED PLATELETS (NORMAL) 02/06/18 05:15 Platelet Morphology NORMAL (NORMAL) 01/27/18 04:58 RBC Morph Micro Appear NORMAL (NORMAL) 01/27/18 04:58 Eos Smear Source URINE 01/28/18 17:10 Eos Smear Total Cells NONE SEEN (NONE SEEN) 01/28/18 17:10 PT 9.3 SECONDS (9.5-11.5) L 01/29/18 21:26 INR 0.90 (0.5-1.4) 01/29/18 21:26 PTT (Actin FS) 46.6 SECONDS (26.0-38.0) H 01/29/18 21:26 Specimen Source Arterial 01/24/18 17:45 Sample Site Left Radial 01/24/18 17:45 pH 7.41 (7.35-7.45) 01/24/18 17:45 pCO2 32.0 mmHg (35.0-45.0) L 01/24/18 17:45 pO2 397.0 mmHg (80.0-100.0) H 01/24/18 17:45 HCO3 22.3 mEq/L (20.0-26.0) 01/24/18 17:45 Base Excess -3.5 mEq/L (-3.0-3.0) L 01/24/18 17:45 O2 Saturation 100.0 % (92.0-100.0) 01/24/18 17:45 Bebo Test YES 01/24/18 17:45 Vent Rate 14 01/24/18 17:45 Inspired O2 100 01/24/18 17:45 Tidal Volume 450 01/24/18 17:45 PEEP 5 01/24/18 17:45 Pressure (ins/psv/peep) NA 01/24/18 17:45 Critical Value E.BRIDGES 01/24/18 17:45 Sodium 136 mEq/L (136-145) 02/06/18 05:15 Potassium 3.6 mEq/L (3.5-5.1) 02/06/18 05:15 Chloride 102 mEq/L (98-107) 02/06/18 05:15 Carbon Dioxide 25.2 mEq/L (21.0-31.0) 02/06/18 05:15 Anion Gap 12.4 (7.0-16.0) 02/06/18 05:15 BUN 55 mg/dL (7-25) H 02/06/18 05:15 Creatinine 1.7 mg/dL (0.6-1.2) H 02/06/18 05:15 Est GFR ( Amer) TNP 02/06/18 05:15 Est GFR (Non-Af Amer) TNP 02/06/18 05:15 BUN/Creatinine Ratio 32.4 02/06/18 05:15 Glucose 112 mg/dL (70-105) H 02/06/18 05:15 POC Glucose 148 MG/DL (70 - 105) H 02/06/18 11:35 Hemoglobin A1c % 5.1 % (4.0-6.0) 01/20/18 12:15 Plasma/Ser Osmolality 287 mOsmol/kg (280-301) 01/28/18 17:45 Whole Bld Lactic Acid 1.50 mmol/L (0.60-1.99) 01/28/18 13:40 Uric Acid 5.3 mg/dL (2.3-6.6) 01/30/18 05:06 Calcium 8.4 mg/dL (8.6-10.3) L 02/06/18 05:15 Phosphorus 3.3 mg/dL (2.5-5.0) 01/30/18 05:06 Magnesium 2.3 mg/dL (1.9-2.7) 01/30/18 05:06 Iron 54 ug/dL (27-139) 01/20/18 12:50 TIBC 159 ug/dL (250-450) L 01/20/18 12:50 Iron Saturation 34 % (15-55) 01/20/18 12:50 Unsaturated IBC 105 ug/dL (118-369) L 01/20/18 12:50 Ferritin 1230 ng/mL (15-150) H 01/20/18 12:50 Total Bilirubin 1.7 mg/dL (0.3-1.0) H 02/05/18 05:15 Direct Bilirubin 0.07 mg/dL (0.0-0.2) 01/20/18 12:30 AST 200 U/L (13-39) H 02/05/18 05:15 ALT 43 U/L (7-52) 02/05/18 05:15 Alkaline Phosphatase 413 U/L (34-104) H 02/05/18 05:15 Troponin I 0.03 ng/mL (0.01-0.05) 01/20/18 12:15 C-Reactive Protein 4.3 mg/dL (0.0-0.9) H 01/20/18 12:50 B-Natriuretic Peptide 185.0 pg/mL (5.0-100.0) H 01/25/18 04:20 Total Protein 4.9 gm/dL (6.0-8.3) L 02/05/18 05:15 Albumin 3.6 gm/dL (3.7-5.3) L 02/05/18 05:15 Globulin 1.3 gm/dL 02/05/18 05:15 Albumin/Globulin Ratio 2.8 (1.0-1.8) H 02/05/18 05:15 Triglycerides 97 mg/dL (<150) 01/20/18 12:15 Cholesterol 195 mg/dL (<200) 01/20/18 12:15 LDL Cholesterol Direct 152 mg/dL (75-193) 01/20/18 12:15 HDL Cholesterol 40 mg/dL (23-92) 01/20/18 12:15 Lipase 108 U/L (11-82) H 01/20/18 12:15 Free T4 1.12 ng/dL (0.82-1.77) 01/20/18 12:50 TSH 0.06 uIU/ml (0.34-5.60) L 01/20/18 12:15 Urine Source [place] 01/28/18 17:10 Urine Color YELLOW 01/28/18 17:10 Urine Clarity CLOUDY (CLEAR) H 01/28/18 17:10 Urine pH 6.0 (4.6 - 8.0) 01/28/18 17:10 Ur Specific [place] 1.020 (1.005-1.030) 01/28/18 17:10 Urine Protein 100 mg/dL (NEGATIVE) H 01/28/18 17:10 Urine Glucose (UA) NEGATIVE mg/dL (NEGATIVE) 01/28/18 17:10 Urine Ketones NEGATIVE mg/dL (NEGATIVE) 01/28/18 17:10 Urine Blood MODERATE (NEGATIVE) H 01/28/18 17:10 Urine Nitrate NEGATIVE (NEGATIVE) 01/28/18 17:10 Urine Bilirubin NEGATIVE (NEGATIVE) 01/28/18 17:10 Urine Urobilinogen 0.2 E.U./dL (0.2 - 1.0) 01/28/18 17:10 Ur Leukocyte Esterase MODERATE (NEGATIVE) H 01/28/18 17:10 Urine RBC 5-10 /hpf (0-5) H 01/28/18 17:10 Urine WBC 10-25 /hpf (0-5) H 01/28/18 17:10 Ur Epithelial Cells OCCASIONAL /lpf (FEW) 01/28/18 17:10 Urine Bacteria OCCASIONAL /hpf (NONE SEEN) 01/28/18 17:10 Urine Yeast MANY /hpf (NONE SEEN) H 01/28/18 17:10 Ur Random Sodium 56 mmol/L 01/28/18 17:10 Urine Creatinine 39.0 mg/dl (28.0-217.0) 01/28/18 17:10 Stool Occult Blood NEGATIVE (NEGATIVE) 02/05/18 14:50 Vancomycin Trough 27.8 ug/mL (10-20) H 01/26/18 23:00 Random Vancomycin 22.6 ug/mL (5.0-40.0) 02/03/18 04:20 Blood Type O POSITIVE 02/03/18 16:58 Antibody Screen NEGATIVE 02/03/18 16:58 Crossmatch See Detail 02/03/18 16:58 - Physical Exam Vitals and I&O: Vital Signs Temp 98.6 F 02/06/18 11:00 Pulse 74 02/06/18 13:09 Resp 18 02/06/18 11:00 BP 94/54 02/06/18 12:15 Pulse Ox 100 02/06/18 13:09 Intake & Output 02/05/18 02/06/18 02/06/18 18:59 06:59 18:59 Intake Total 100 1220 100 Output Total 350 Balance 100 870 100 Weight (lbs) 58.06 kg Intake: Intake, IV Amount 100 100 100 Meropenem 1 gm In Sodium 100 100 100 Chloride 0.9% 100 ml @ 100 mls/hr IV Q12H [facility] Rx #:[id number] Norepinephrine 4 mg In 0 Sodium Chloride 0.9% 250 ml @ 4 MCG/MIN 15.24 mls/ hr IV TITR [facility] Rx#: [id number] Tube Feeding 720 Other 400 Output: Urine 350 Other: # Bowel Movements 1 Stool Characteristics Soft Soft Brown Brown Weight Source Bedscale Active Medications: Current Medications Acetaminophen (Tylenol) 650 mg PO Q4H PRN PRN Reason: MILD PAIN OR TEMP >100.4 Stop: 03/21/18 16:07 Al Hydrox/Mg Hydrox/Simethicone (Maalox) 30 ml PO Q6HR PRN PRN Reason: GI DISTRESS Stop: 03/21/18 16:28 Albuterol/Ipratropium (Duoneb Neb) 3 ml HHN Q6HRT [facility] Stop: 03/30/18 00:59 Last Admin: 02/06/18 13:08 Dose: 3 ml Amlodipine Besylate (Norvasc) 10 mg PO DAILY [facility] Stop: 04/02/18 16:59 Last Admin: 02/06/18 09:26 Dose: Not Given Artificial Tears (Artificial Tears Ophth Soln) 1 drop EACH EYE Q2HR PRN PRN Reason: Dry Eye Stop: 03/27/18 09:28 Last Admin: 02/05/18 09:06 Dose: 1 drop Atorvastatin Calcium (Lipitor) 80 mg PO HS [facility] PRN Reason: Protocol Stop: 03/21/18 20:59 Last Admin: 02/05/18 20:08 Dose: 80 mg Bisacodyl (Dulcolax 10 Mg Supp) 10 mg RC DAILY PRN PRN Reason: Constipation Stop: 03/21/18 16:07 Budesonide (Pulmicort) 0.5 mg HHN BIDRT [facility] Stop: 04/01/18 18:59 Last Admin: 02/06/18 07:24 Dose: 0.5 mg Carvedilol (Coreg) 12.5 mg PO BID [facility] Stop: 03/21/18 16:59 Last Admin: 02/06/18 09:26 Dose: Not Given Chlorhexidine Gluconate (Peridex) 15 ml MM 0800,2000 [facility] Stop: 03/27/18 07:59 Last Admin: 02/06/18 08:30 Dose: 15 ml Dextrose (D50w) 50 ml IVP PRN PRN PRN Reason: HYPOGLYCEMIA Stop: 03/21/18 16:07 Diltiazem HCl (Cardizem) 60 mg PO Q6HR [facility] Stop: 03/21/18 17:59 Last Admin: 02/06/18 11:35 Dose: Not Given Enalaprilat (Vasotec) 2.5 mg IVP Q6HR PRN PRN Reason: SBP ABOVE 160 Stop: 03/25/18 11:59 Last Admin: 02/04/18 16:58 Dose: 2.5 mg Glucagon (Glucagen) 1 mg IVP PRN PRN PRN Reason: HYPOGLYCEMIA Stop: 03/21/18 16:25 Meropenem 1 gm/ Sodium (Chloride) 100 mls @ 100 mls/hr IV Q12H [facility] Stop: 03/26/18 08:59 Last Infusion: 02/06/18 10:25 Dose: Infused Phenylephrine HCl 10 mg/ (Sodium Chloride) 250 mls @ 75 mls/hr IV TITR [facility]; 50 MCG/MIN PRN Reason: Protocol Stop: 03/25/18 20:14 Norepinephrine Bitartrate 4 mg (/ Sodium Chloride) 254 mls @ 15.24 mls/hr IV TITR [facility]; 4 MCG/MIN PRN Reason: Protocol Stop: 03/26/18 08:14 Last Admin: 02/06/18 10:15 Dose: 4 mcg/min, 15.24 mls/hr Cefazolin Sodium 1 gm/ (Dextrose) 50 mls @ 100 mls/hr IV X1 ONE Stop: 02/07/18 09:59 Dextrose (D5w) 1,000 mls @ 50 mls/hr IV .Q20H [facility] Stop: 04/07/18 14:14 Insulin Aspart (Novolog Insulin Sliding Scale) 0 units SUBQ Q6HR [facility] PRN Reason: Protocol Stop: 03/27/18 00:00 Last Admin: 02/06/18 11:35 Dose: Not Given Losartan Potassium (Cozaar) 100 mg PO DAILY [facility] Stop: 04/02/18 16:59 Last Admin: 02/06/18 09:26 Dose: Not Given Magnesium Hydroxide (Milk Of Magnesia) 30 ml PO DAILY PRN PRN Reason: IF NO BM IN TWO DAYS Stop: 03/21/18 16:07 Metoprolol Tartrate (Lopressor) 5 mg IV Q4H PRN PRN Reason: Tachycardia Stop: 03/25/18 12:29 Miscellaneous (Misc Oral Tab) 1 tab PO BID [facility] Stop: 02/08/18 09:01 Last Admin: 02/06/18 09:24 Dose: 1 tab Morphine Sulfate (Morphine) 1 mg IV Q4HR PRN PRN Reason: MOD TO SEVERE PAIN Stop: 04/02/18 15:59 Last Admin: 02/05/18 01:29 Dose: 1 mg Multivitamins/Vitamin C (Theragran) 1 tab PO DAILY [facility] Stop: 03/22/18 08:59 Last Admin: 02/06/18 09:23 Dose: 1 tab Ondansetron HCl (Zofran Odt) 4 mg PO Q6H PRN PRN Reason: Nausea / Vomiting Stop: 03/21/18 16:07 Pantoprazole Sodium (Protonix) 40 mg NG DAILY [facility] Stop: 03/28/18 16:59 Last Admin: 02/06/18 09:23 Dose: 40 mg Prednisone (Deltasone) 10 mg PO DAILY [facility] Stop: 03/22/18 08:59 Last Admin: 02/06/18 09:24 Dose: 10 mg Sodium Phosphate (Fleet Enema) 135 ml RC DAILY PRN PRN Reason: Constipation Stop: 03/21/18 16:07 Vitamin A (Vitamin A & D) 5 gm TP DAILY [facility] Stop: 03/22/18 08:59 Last Admin: 02/06/18 09:24 Dose: 5 gm General: Mild distress HEENT: Atraumatic, Mucous membr. moist/pink, Other (facial edema) Neck: Supple, +2 carotid pulse wo bruit Cardiovascular: Regular rate, Normal S1, Normal S2 Lungs: Other (decreased BS, coarse rhonchi) Abdomen: Bowel sounds, Soft Extremities: Edema, Other (less edema) Neurological: Sensation intact Skin: no Rash Psych/Mental Status: Other (obtunded) - Procedures Procedures: Procedures Procedure Code Date INSERT EMERGENCY AIRWAY [id number] 01/20/18 INSERTION OF ENDOTRACHEAL AIRWAY INTO [place], VIA OPENING [id number] 01/20/18 RESPIRATORY VENTILATION, GREATER THAN 96 CONSECUTIVE HOURS [id number] 01/20/18 VENT MGMT INPAT INIT DAY 70224 01/20/18 Assessment/Plan - Problem List Patient Problems: All Active Problems Dementia (Acute) F03.90 ELEVATED WBC, LUNG INFILTRATES (Acute) Leukocytosis (Acute) D72.829 Pneumonia (Acute) J18.9 - Assessment Assessment: LAURENCE Anuric 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 A. Fib Anemia of acute on CD non Gap met acid yeast UTI Anasarca - Plan Plan: Lab - Result Diagrams 01/29/18 05:10 01/29/18 05:10 Current Medications Acetaminophen (Tylenol) 650 mg PO Q4H PRN PRN Reason: MILD PAIN OR TEMP >100.4 Stop: 03/21/18 16:07 Al Hydrox/Mg Hydrox/Simethicone (Maalox) 30 ml PO Q6HR PRN PRN Reason: GI DISTRESS Stop: 03/21/18 16:28 Albuterol/Ipratropium (Duoneb Neb) 3 ml HHN Q6HRT [facility] Stop: 03/30/18 00:59 Last Admin: 01/29/18 13:21 Dose: 3 ml Artificial Tears (Artificial Tears Ophth Soln) 1 drop EACH EYE Q2HR PRN PRN Reason: Dry Eye Stop: 03/27/18 09:28 Last Admin: 01/26/18 10:13 Dose: 1 drop Atorvastatin Calcium (Lipitor) 80 mg PO HS [facility] PRN Reason: Protocol Stop: 03/21/18 20:59 Last Admin: 01/28/18 20:32 Dose: 80 mg Bisacodyl (Dulcolax 10 Mg Supp) 10 mg RC DAILY PRN PRN Reason: Constipation Stop: 03/21/18 16:07 Carvedilol (Coreg) 12.5 mg PO BID [facility] Stop: 03/21/18 16:59 Last Admin: 01/29/18 08:10 Dose: 12.5 mg Chlorhexidine Gluconate (Peridex) 15 ml MM 0800,2000 [facility] Stop: 03/27/18 07:59 Last Admin: 01/29/18 08:00 Dose: 15 ml Dextrose (D50w) 50 ml IVP PRN PRN PRN Reason: HYPOGLYCEMIA Stop: 03/21/18 16:07 Diltiazem HCl (Cardizem) 60 mg PO Q6HR [facility] Stop: 03/21/18 17:59 Last Admin: 01/29/18 12:10 Dose: 60 mg Enalaprilat (Vasotec) 2.5 mg IVP Q6HR PRN PRN Reason: SBP ABOVE 160 Stop: 03/25/18 11:59 Last Admin: 01/24/18 15:13 Dose: 2.5 mg Glucagon (Glucagen) 1 mg IVP PRN PRN PRN Reason: HYPOGLYCEMIA Stop: 03/21/18 16:25 Meropenem 1 gm/ Sodium (Chloride) 100 mls @ 100 mls/hr IV Q12H [facility] Stop: 03/26/18 08:59 Last Infusion: 01/29/18 10:30 Dose: Infused Phenylephrine HCl 10 mg/ (Sodium Chloride) 250 mls @ 75 mls/hr IV TITR [facility]; 50 MCG/MIN PRN Reason: Protocol Stop: 03/25/18 20:14 Norepinephrine Bitartrate 4 mg (/ Sodium Chloride) 254 mls @ 15.24 mls/hr IV TITR [facility]; 4 MCG/MIN PRN Reason: Protocol Stop: 03/26/18 08:14 Last Titration: 01/27/18 00:22 Dose: 0 mcg/min, 0 mls/hr Potassium Chloride/Dextrose/Sod Cl (D5-0.9ns W/Kcl 20meq) 1,000 mls @ 75 mls/ hr IV .[id number] [facility] Stop: 03/28/18 14:06 Last Admin: 01/29/18 12:54 Dose: 125 mls/hr Insulin Aspart (Novolog Insulin Sliding Scale) 0 units SUBQ Q6HR [facility] PRN Reason: Protocol Stop: 03/27/18 00:00 Last Admin: 01/29/18 12:09 Dose: 2 units Magnesium Hydroxide (Milk Of Magnesia) 30 ml PO DAILY PRN PRN Reason: IF NO BM IN TWO DAYS Stop: 03/21/18 16:07 Megestrol Acetate (Megace) 400 mg PO BID [facility] Stop: 03/21/18 16:59 Last Admin: 01/29/18 08:10 Dose: 400 mg Metoprolol Tartrate (Lopressor) 5 mg IV Q4H PRN PRN Reason: Tachycardia Stop: 03/25/18 12:29 Miscellaneous (Vancomycin Iv Per Pharmacy) 1 ea MC PRN [facility] Stop: 03/25/18 17:59 Multivitamins/Vitamin C (Theragran) 1 tab PO DAILY [facility] Stop: 03/22/18 08:59 Last Admin: 01/29/18 08:10 Dose: 1 tab Ondansetron HCl (Zofran Odt) 4 mg PO Q6H PRN PRN Reason: Nausea / Vomiting Stop: 03/21/18 16:07 Pantoprazole Sodium (Protonix) 40 mg NG DAILY [facility] Stop: 03/28/18 16:59 Last Admin: 01/29/18 08:10 Dose: 40 mg Prednisone (Deltasone) 10 mg PO DAILY [facility] Stop: 03/22/18 08:59 Last Admin: 01/29/18 08:10 Dose: 10 mg Sodium Bicarbonate (Sodium Bicarbonate) 650 mg PO BID [facility] PRN Reason: Protocol Stop: 03/29/18 16:59 Last Admin: 01/29/18 08:10 Dose: 650 mg Sodium Phosphate (Fleet Enema) 135 ml RC DAILY PRN PRN Reason: Constipation Stop: 03/21/18 16:07 Vitamin A (Vitamin A & D) 5 gm TP DAILY [facility] Stop: 03/22/18 08:59 Last Admin: 01/29/18 12:14 Dose: 5 Lab - Result Diagrams 02/06/18 05:15 02/06/18 05:15 kidney fnc slight improvement facial/peripheral edema decrease IVF & DC K replace Ca, P04, Mg start Diflucan on top of Meropenem new [place] Maria placed today WBC up to 20.9 administer NaHC03 initiated on HD due to anuria, fluid retention, acidosis, hyperkalemia Hgb/Hct up to 14.4/41.7, transfused 3 U PRBC CXR still w/ b/l small effusion will still need dialysis due to peripheral edema, b/l effusions; aware of Cr. of 1.5 but remains anuric Nutritional Asmnt/Malnutr-PDOC - Dietary Evaluation Malnutrition Findings (Please click <Entered> for more info): Nutritional Asmnt/Malnutrition Start: 01/21/18 16: 32 Text: Status: Complete Freq: Document 01/21/18 16:32 HEN (Rec: 01/21/18 16:48 LCHEN [id number]) Nutritional Asmnt/Malnutrition Patient General Information Nutritional Screening High Risk Consult Diagnosis left lung infiltrate Pertinent Medical Hx/Surgical Hx dementia, HTN, hyperlipidemia per ER notes, no H&P at this time Subjective Information Pt seen sleeping at time of visit, not able to wake up for lunch. Per [facility], pt only had cereal and scrambled eggs this morning, not able to chew the [place] toast d/t weakness. Current Diet Order/ Nutrition Support low cholesterol 300gm Pertinent Medications D5-0.45ns, novolog, megace, theragran, piperacillin, vit A &D Pertinent Labs 01/21 BUN 32, Glucose 180, POC 142-261 01/20 A1c 5.1, POC 127-165 Nutritional Hx/Data Height 1.6 m Height (Calculated Centimeters) 160.0 Current Weight (lbs) 37.648 kg Weight (Calculated Kilograms) 37.6 Weight (Calculated Grams) 39761.2 [place] Body Weight 115 Body Mass Index (BMI) 14.7 Weight Status Underweight GI Symptoms GI Symptoms None Last BM none Difficult in: None Skin Integrity/Comment: reddened to vagina and coccyx Current %PO Poor (25-49%) Estimated Nutritional Goals Calories/Kcals/Kg 25-30 Kcals Calculated 2695-2072 Protein g/k Protein Calculated 52 Fluid: ml 1300-1560ml (1ml/kcal) Nutritional Problem 2. Problem Problem chewing difficulty Etiology weakness, sleepy Signs/Symptoms: pt need for mech soft diet 1. Problem Problem altered nutrition related lab values Etiology hyperglycemia Signs/Symptoms: Glucose 180, POC 127-261 Intervention/Recommendation Comments 1. Recommend Mech soft ground diet with Boost BID to increase nutrition intake. 2. Monitor PO intake, wt, labs and skin integrity 3. F/U as high risk in 2-3 days, 01/23-01/24 Expected Outcomes/Goals Expected Outcomes/Goals 1. PO intake to meet at least 75% of nutritional needs. 2. Wt stability, skin to remain intact, labs to approach WNL.
[2018-02-07] MEDS: Dextrose 5% 1,000 ML IV SCH
[2018-02-07] MEDS: Diltiazem 30 mg Tab PO SCH ×4 (00:53→18:35)
[2018-02-07] MEDS: Albuterol/Ipratropium Neb 3 ML AERS HHN SCH ×4 (00:58→19:45)
[2018-02-07 06:30] LABS: HEMATOCRIT 43.6 % (41.0-60); HEMOGLOBIN 15.1 gm/dL (12-16); MEAN CELL VOLUME 91.2 fl (81-100); MEAN CORPUSCULAR HEMOGLOBIN 31.6 pg (27.0-31.0); MEAN CORPUSCULAR HGB CONC 34.6 pg (28.0-36.0); MEAN PLATELET VOLUME 9.1 fl; PLATELET COUNT 99 Th/cmm (150-400); RED BLOOD COUNT 4.78 Mil/cmm (3.80-5.20); RED CELL DISTRIBUTION WIDTH 17.2 % (11.5-20.0)
[2018-02-07 06:31] LABS: WHITE BLOOD COUNT 19.4 Th/cmm (4.8-10.8)
[2018-02-07 06:32] LABS: MANUAL DIFF REQUIRED? YES
[2018-02-07] MEDS: INSULIN ASPART SLIDING SCALE 100 UNITS/ML UNIT SUBQ SCH ×3 (06:37→18:00)
[2018-02-07 06:39] LABS: ANION GAP 11.4 (7.0-16.0); BUN - UREA NITROGEN 38 mg/dL (7-25); CALCIUM SERUM 8.3 mg/dL (8.6-10.3); CARBON DIOXIDE 24.5 mEq/L (21.0-31.0); CHLORIDE 104 mEq/L (98-107); CREATININE - SERUM 1.3 mg/dL (0.6-1.2); GLUCOSE 107 mg/dL (70-105); POTASSIUM SERUM 3.9 mEq/L (3.5-5.1); SODIUM SERUM 136 mEq/L (136-145)
[2018-02-07 07:01] LABS: PROTHROMBIN TIME (TEST) 10.4 SECONDS (9.5-11.5)
[2018-02-07 07:21] LABS: BAND NEUTROPHILE 3 % (0-10); LYMPHOCYTE 5 % (20-50); MONOCYTE 7 % (2-10); NEUTROPHILS 85 % (40-80); TOTAL CELLS COUNTED 100
[2018-02-07 07:22] LABS: PLATELET ESTIMATE DECREASED PLATELETS (NORMAL)
[2018-02-07] MEDS: Chlorhexidine Gluconate 0.12% 15mL Mouthwash MM SCH ×2 (08:00→20:40)
[2018-02-07] MEDS: Budesonide 0.5 Mg/2 mL Ud HHN SCH ×2 (08:38→19:45)
--- NOTE | 2018-02-07 09:15 | Diagnostic Imaging Report ---
CHEST X-RAY: AP view INDICATION: CHF COMPARISON: 02/05/2018 FINDINGS: Support devices are stable. COPD lung changes are seen with decrease in left effusion and decrease in left basal infiltrates. Residual right basal infiltrates are noted. IMPRESSION: COPD lung changes. There has been decrease in size of small left effusion and left basal infiltrates. Focal right basal infiltrates noted. Continued follow-up is recommended to ensure resolution.
[2018-02-07] MEDS: Meropenem 1 GM in Sodium Chloride 0.9% 100 ML IV SCH ×2 (09:23→21:00)
[2018-02-07] MEDS ORDERED: Propofol 10 mg/mL 20mL Vial **SURGERY USE ONLY IV ONE (10:45)
[2018-02-07] MEDS ORDERED: Lidocaine 2% Gel 5 mL TP ONE (10:45)
--- NOTE | 2018-02-07 11:44 | General Progress Note ---
Subjective - Review of Systems Events since last encounter: on vent no change Objective - Results Result Diagrams: 02/07/18 05:21 02/07/18 05:21 Recent Labs: Laboratory Last Values WBC 19.4 Th/cmm (4.8-10.8) H 02/07/18 05:21 RBC 4.78 Mil/cmm (3.80-5.20) 02/07/18 05:21 Hgb 15.1 gm/dL (12-16) 02/07/18 05:21 Hct 43.6 % (41.0-60) 02/07/18 05:21 MCV 91.2 fl (81-100) 02/07/18 05:21 MCH 31.6 pg (27.0-31.0) H 02/07/18 05:21 MCHC Differential 34.6 pg (28.0-36.0) 02/07/18 05:21 RDW 17.2 % (11.5-20.0) 02/07/18 05:21 Plt Count 99 Th/cmm (150-400) L 02/07/18 05:21 MPV 9.1 fl 02/07/18 05:21 Neutrophils % 87.3 % (40.0-80.0) H 02/05/18 07:00 Band Neutrophils % 3 % (0-10) 02/07/18 05:21 Lymphocytes % 7.0 % (20.0-50.0) L 02/05/18 07:00 Monocytes % 4.3 % (2.0-10.0) 02/05/18 07:00 Eosinophils % 1.4 % (0.0-5.0) 02/05/18 07:00 Basophils % 0.0 % (0.0-2.0) 02/05/18 07:00 Neutrophils (Manual) 85 % (40-80) H 02/07/18 05:21 Lymphocytes 5 % (20-50) L 02/07/18 05:21 Monocytes 7 % (2-10) 02/07/18 05:21 Eosinophils 2 % (0-5) 02/06/18 05:15 Basophils 0 % (0-3) 01/27/18 04:58 Platelet Estimate DECREASED PLATELETS (NORMAL) 02/07/18 05:21 Platelet Morphology NORMAL (NORMAL) 01/27/18 04:58 RBC Morph Micro Appear NORMAL (NORMAL) 01/27/18 04:58 Eos Smear Source URINE 01/28/18 17:10 Eos Smear Total Cells NONE SEEN (NONE SEEN) 01/28/18 17:10 PT 10.4 SECONDS (9.5-11.5) 02/07/18 05:21 INR 1.00 (0.5-1.4) 02/07/18 05:21 PTT (Actin FS) 28.4 SECONDS (26.0-38.0) 02/07/18 05:21 Specimen Source Arterial 01/24/18 17:45 Sample Site Left Radial 01/24/18 17:45 pH 7.41 (7.35-7.45) 01/24/18 17:45 pCO2 32.0 mmHg (35.0-45.0) L 01/24/18 17:45 pO2 397.0 mmHg (80.0-100.0) H 01/24/18 17:45 HCO3 22.3 mEq/L (20.0-26.0) 01/24/18 17:45 Base Excess -3.5 mEq/L (-3.0-3.0) L 01/24/18 17:45 O2 Saturation 100.0 % (92.0-100.0) 01/24/18 17:45 Bebo Test YES 01/24/18 17:45 Vent Rate 14 01/24/18 17:45 Inspired O2 100 01/24/18 17:45 Tidal Volume 450 01/24/18 17:45 PEEP 5 01/24/18 17:45 Pressure (ins/psv/peep) NA 01/24/18 17:45 Critical Value E.BRIDGES 01/24/18 17:45 Sodium 136 mEq/L (136-145) 02/07/18 05:21 Potassium 3.9 mEq/L (3.5-5.1) 02/07/18 05:21 Chloride 104 mEq/L (98-107) 02/07/18 05:21 Carbon Dioxide 24.5 mEq/L (21.0-31.0) 02/07/18 05:21 Anion Gap 11.4 (7.0-16.0) 02/07/18 05:21 BUN 38 mg/dL (7-25) H 02/07/18 05:21 Creatinine 1.3 mg/dL (0.6-1.2) H 02/07/18 05:21 Est GFR ( Amer) TNP 02/07/18 05:21 Est GFR (Non-Af Amer) TNP 02/07/18 05:21 BUN/Creatinine Ratio 29.2 02/07/18 05:21 Glucose 107 mg/dL (70-105) H 02/07/18 05:21 POC Glucose 111 MG/DL (70 - 105) H 02/07/18 05:18 Hemoglobin A1c % 5.1 % (4.0-6.0) 01/20/18 12:15 Plasma/Ser Osmolality 287 mOsmol/kg (280-301) 01/28/18 17:45 Whole Bld Lactic Acid 1.50 mmol/L (0.60-1.99) 01/28/18 13:40 Uric Acid 5.3 mg/dL (2.3-6.6) 01/30/18 05:06 Calcium 8.3 mg/dL (8.6-10.3) L 02/07/18 05:21 Phosphorus 3.3 mg/dL (2.5-5.0) 01/30/18 05:06 Magnesium 2.3 mg/dL (1.9-2.7) 01/30/18 05:06 Iron 54 ug/dL (27-139) 01/20/18 12:50 TIBC 159 ug/dL (250-450) L 01/20/18 12:50 Iron Saturation 34 % (15-55) 01/20/18 12:50 Unsaturated IBC 105 ug/dL (118-369) L 01/20/18 12:50 Ferritin 1230 ng/mL (15-150) H 01/20/18 12:50 Total Bilirubin 1.7 mg/dL (0.3-1.0) H 02/05/18 05:15 Direct Bilirubin 0.07 mg/dL (0.0-0.2) 01/20/18 12:30 AST 200 U/L (13-39) H 02/05/18 05:15 ALT 43 U/L (7-52) 02/05/18 05:15 Alkaline Phosphatase 413 U/L (34-104) H 02/05/18 05:15 Troponin I 0.03 ng/mL (0.01-0.05) 01/20/18 12:15 C-Reactive Protein 4.3 mg/dL (0.0-0.9) H 01/20/18 12:50 B-Natriuretic Peptide 185.0 pg/mL (5.0-100.0) H 01/25/18 04:20 Total Protein 4.9 gm/dL (6.0-8.3) L 02/05/18 05:15 Albumin 3.6 gm/dL (3.7-5.3) L 02/05/18 05:15 Globulin 1.3 gm/dL 02/05/18 05:15 Albumin/Globulin Ratio 2.8 (1.0-1.8) H 02/05/18 05:15 Triglycerides 97 mg/dL (<150) 01/20/18 12:15 Cholesterol 195 mg/dL (<200) 01/20/18 12:15 LDL Cholesterol Direct 152 mg/dL (75-193) 01/20/18 12:15 HDL Cholesterol 40 mg/dL (23-92) 01/20/18 12:15 Lipase 108 U/L (11-82) H 01/20/18 12:15 Free T4 1.12 ng/dL (0.82-1.77) 01/20/18 12:50 TSH 0.06 uIU/ml (0.34-5.60) L 01/20/18 12:15 Urine Source [place] 01/28/18 17:10 Urine Color YELLOW 01/28/18 17:10 Urine Clarity CLOUDY (CLEAR) H 01/28/18 17:10 Urine pH 6.0 (4.6 - 8.0) 01/28/18 17:10 Ur Specific [place] 1.020 (1.005-1.030) 01/28/18 17:10 Urine Protein 100 mg/dL (NEGATIVE) H 01/28/18 17:10 Urine Glucose (UA) NEGATIVE mg/dL (NEGATIVE) 01/28/18 17:10 Urine Ketones NEGATIVE mg/dL (NEGATIVE) 01/28/18 17:10 Urine Blood MODERATE (NEGATIVE) H 01/28/18 17:10 Urine Nitrate NEGATIVE (NEGATIVE) 01/28/18 17:10 Urine Bilirubin NEGATIVE (NEGATIVE) 01/28/18 17:10 Urine Urobilinogen 0.2 E.U./dL (0.2 - 1.0) 01/28/18 17:10 Ur Leukocyte Esterase MODERATE (NEGATIVE) H 01/28/18 17:10 Urine RBC 5-10 /hpf (0-5) H 01/28/18 17:10 Urine WBC 10-25 /hpf (0-5) H 01/28/18 17:10 Ur Epithelial Cells OCCASIONAL /lpf (FEW) 01/28/18 17:10 Urine Bacteria OCCASIONAL /hpf (NONE SEEN) 01/28/18 17:10 Urine Yeast MANY /hpf (NONE SEEN) H 01/28/18 17:10 Ur Random Sodium 56 mmol/L 01/28/18 17:10 Urine Creatinine 39.0 mg/dl (28.0-217.0) 01/28/18 17:10 Stool Occult Blood NEGATIVE (NEGATIVE) 02/05/18 14:50 Vancomycin Trough 27.8 ug/mL (10-20) H 01/26/18 23:00 Random Vancomycin 22.6 ug/mL (5.0-40.0) 02/03/18 04:20 Blood Type O POSITIVE 02/03/18 16:58 Antibody Screen NEGATIVE 02/03/18 16:58 Crossmatch See Detail 02/03/18 16:58 - Physical Exam Vitals and I&O: Vital Signs Temp 98.6 F 02/07/18 04:00 Pulse 76 02/07/18 08:39 Resp 18 02/07/18 06:00 BP 167/89 02/07/18 06:00 Pulse Ox 99 02/07/18 08:39 Intake & Output 02/06/18 02/07/18 02/07/18 18:59 06:59 18:59 Intake Total 775.73 370 Output Total 2090 75 Balance -1314.27 295 Weight (lbs) 53.609 kg 53.524 kg Intake: Intake, IV Amount 225.73 100 Meropenem 1 gm In Sodium 100 100 Chloride 0.9% 100 ml @ 100 mls/hr IV Q12H [facility] Rx #:[id number] Norepinephrine 4 mg In 125.73 Sodium Chloride 0.9% 250 ml @ 4 MCG/MIN 15.24 mls/ hr IV TITR [facility] Rx#: [id number] Tube Feeding 300 150 Other 250 120 Output: Urine 90 75 Hemodialysis 2000 Other: # Bowel Movements 1 1 Stool Characteristics Soft Brown Weight Source Bedscale Bedscale Active Medications: Current Medications Acetaminophen (Tylenol) 650 mg PO Q4H PRN PRN Reason: MILD PAIN OR TEMP >100.4 Stop: 03/21/18 16:07 Al Hydrox/Mg Hydrox/Simethicone (Maalox) 30 ml PO Q6HR PRN PRN Reason: GI DISTRESS Stop: 03/21/18 16:28 Albuterol/Ipratropium (Duoneb Neb) 3 ml HHN Q6HRT [facility] Stop: 03/30/18 00:59 Last Admin: 02/07/18 08:38 Dose: 3 ml Amlodipine Besylate (Norvasc) 10 mg PO DAILY [facility] Stop: 04/02/18 16:59 Last Admin: 02/06/18 09:26 Dose: Not Given Artificial Tears (Artificial Tears Ophth Soln) 1 drop EACH EYE Q2HR PRN PRN Reason: Dry Eye Stop: 03/27/18 09:28 Last Admin: 02/05/18 09:06 Dose: 1 drop Atorvastatin Calcium (Lipitor) 80 mg PO HS [facility] PRN Reason: Protocol Stop: 03/21/18 20:59 Last Admin: 02/06/18 20:45 Dose: 80 mg Bisacodyl (Dulcolax 10 Mg Supp) 10 mg RC DAILY PRN PRN Reason: Constipation Stop: 03/21/18 16:07 Budesonide (Pulmicort) 0.5 mg HHN BIDRT [facility] Stop: 04/01/18 18:59 Last Admin: 02/07/18 08:38 Dose: 0.5 mg Carvedilol (Coreg) 12.5 mg PO BID [facility] Stop: 03/21/18 16:59 Last Admin: 02/06/18 17:47 Dose: Not Given Chlorhexidine Gluconate (Peridex) 15 ml MM 0800,2000 [facility] Stop: 03/27/18 07:59 Last Admin: 02/06/18 20:45 Dose: 15 ml Dextrose (D50w) 50 ml IVP PRN PRN PRN Reason: HYPOGLYCEMIA Stop: 03/21/18 16:07 Diltiazem HCl (Cardizem) 60 mg PO Q6HR [facility] Stop: 03/21/18 17:59 Last Admin: 02/07/18 06:37 Dose: Not Given Enalaprilat (Vasotec) 2.5 mg IVP Q6HR PRN PRN Reason: SBP ABOVE 160 Stop: 03/25/18 11:59 Last Admin: 02/04/18 16:58 Dose: 2.5 mg Glucagon (Glucagen) 1 mg IVP PRN PRN PRN Reason: HYPOGLYCEMIA Stop: 03/21/18 16:25 Meropenem 1 gm/ Sodium (Chloride) 100 mls @ 100 mls/hr IV Q12H [facility] Stop: 03/26/18 08:59 Last Admin: 02/07/18 09:23 Dose: 100 mls/hr Phenylephrine HCl 10 mg/ (Sodium Chloride) 250 mls @ 75 mls/hr IV TITR [facility]; 50 MCG/MIN PRN Reason: Protocol Stop: 03/25/18 20:14 Norepinephrine Bitartrate 4 mg (/ Sodium Chloride) 254 mls @ 15.24 mls/hr IV TITR [facility]; 4 MCG/MIN PRN Reason: Protocol Stop: 03/26/18 08:14 Last Titration: 02/06/18 18:30 Dose: 0 mcg/min, 0 mls/hr Dextrose (D5w) 1,000 mls @ 50 mls/hr IV .Q20H [facility] Stop: 04/07/18 14:14 Last Admin: 02/07/18 00:00 Dose: 50 mls/hr Insulin Aspart (Novolog Insulin Sliding Scale) 0 units SUBQ Q6HR [facility] PRN Reason: Protocol Stop: 03/27/18 00:00 Last Admin: 02/07/18 06:37 Dose: Not Given Losartan Potassium (Cozaar) 100 mg PO DAILY [facility] Stop: 04/02/18 16:59 Last Admin: 02/06/18 09:26 Dose: Not Given Magnesium Hydroxide (Milk Of Magnesia) 30 ml PO DAILY PRN PRN Reason: IF NO BM IN TWO DAYS Stop: 03/21/18 16:07 Metoprolol Tartrate (Lopressor) 5 mg IV Q4H PRN PRN Reason: Tachycardia Stop: 03/25/18 12:29 Miscellaneous (Misc Oral Tab) 1 tab PO BID [facility] Stop: 02/08/18 09:01 Last Admin: 02/06/18 17:45 Dose: 1 tab Morphine Sulfate (Morphine) 1 mg IV Q4HR PRN PRN Reason: MOD TO SEVERE PAIN Stop: 04/02/18 15:59 Last Admin: 02/05/18 01:29 Dose: 1 mg Multivitamins/Vitamin C (Theragran) 1 tab PO DAILY [facility] Stop: 03/22/18 08:59 Last Admin: 02/06/18 09:23 Dose: 1 tab Ondansetron HCl (Zofran Odt) 4 mg PO Q6H PRN PRN Reason: Nausea / Vomiting Stop: 03/21/18 16:07 Pantoprazole Sodium (Protonix) 40 mg NG DAILY [facility] Stop: 03/28/18 16:59 Last Admin: 02/06/18 09:23 Dose: 40 mg Prednisone (Deltasone) 10 mg PO DAILY [facility] Stop: 03/22/18 08:59 Last Admin: 02/06/18 09:24 Dose: 10 mg Sodium Phosphate (Fleet Enema) 135 ml RC DAILY PRN PRN Reason: Constipation Stop: 03/21/18 16:07 Vitamin A (Vitamin A & D) 5 gm TP DAILY [facility] Stop: 03/22/18 08:59 Last Admin: 02/06/18 09:24 Dose: 5 gm General: Mild distress HEENT: Atraumatic, Mucous membr. moist/pink, Other (facial edema) Neck: Supple, +2 carotid pulse wo bruit Cardiovascular: Regular rate, Normal S1, Normal S2 Lungs: Other (decreased BS, coarse rhonchi) Abdomen: Bowel sounds, Soft Extremities: Edema, Other (less edema) Neurological: Sensation intact Skin: no Rash Psych/Mental Status: Other (obtunded) - Procedures Procedures: Procedures Procedure Code Date INSERT EMERGENCY AIRWAY 18944 01/20/18 INSERTION OF ENDOTRACHEAL AIRWAY INTO TRACHEA, VIA OPENING [id number] 01/20/18 RESPIRATORY VENTILATION, GREATER THAN 96 CONSECUTIVE HOURS [id number] 01/20/18 VENT MGMT INPAT INIT DAY [id number] 01/20/18 Assessment/Plan - Problem List Patient Problems: All Active Problems Dementia (Acute) F03.90 ELEVATED WBC, LUNG INFILTRATES (Acute) Leukocytosis (Acute) D72.829 Pneumonia (Acute) J18.9 - Plan Plan: as per order sheet Nutritional Asmnt/Malnutr-PDOC - Dietary Evaluation Malnutrition Findings (Please click <Entered> for more info): Nutritional Asmnt/Malnutrition Start: 01/21/18 16: 32 Text: Status: Complete Freq: Document 01/21/18 16:32 LCTROYG (Rec: 01/21/18 16:48 [id number]) Nutritional Asmnt/Malnutrition Patient General Information Nutritional Screening High Risk Consult Diagnosis left lung infiltrate Pertinent Medical Hx/Surgical Hx dementia, HTN, hyperlipidemia per ER notes, no H&P at this time Subjective Information Pt seen sleeping at time of visit, not able to wake up for lunch. Per [employer], pt only had cereal and scrambled eggs this morning, not able to chew the Malay toast d/t weakness. Current Diet Order/ Nutrition Support low cholesterol 300gm Pertinent Medications D5-0.45ns, novolog, megace, theragran, piperacillin, vit A &D Pertinent Labs 01/21 BUN 32, Glucose 180, POC 142-261 01/20 A1c 5.1, POC 127-165 Nutritional Hx/Data Height 1.6 m Height (Calculated Centimeters) 160.0 Current Weight (lbs) 37.648 kg Weight (Calculated Kilograms) 37.6 Weight (Calculated Grams) 36464.2 [place] Body Weight 115 Body Mass Index (BMI) 14.7 Weight Status Underweight GI Symptoms GI Symptoms None Last BM none Difficult in: None Skin Integrity/Comment: reddened to vagina and coccyx Current %PO Poor (25-49%) Estimated Nutritional Goals Calories/Kcals/Kg 25-30 Kcals Calculated 2250-6321 Protein g/k Protein Calculated 52 Fluid: ml 1300-1560ml (1ml/kcal) Nutritional Problem 2. Problem Problem chewing difficulty Etiology weakness, sleepy Signs/Symptoms: pt need for mech soft diet 1. Problem Problem altered nutrition related lab values Etiology hyperglycemia Signs/Symptoms: Glucose 180, POC 127-261 Intervention/Recommendation Comments 1. Recommend Mech soft ground diet with Boost BID to increase nutrition intake. 2. Monitor PO intake, wt, labs and skin integrity 3. F/U as high risk in 2-3 days, 01/23-01/24 Expected Outcomes/Goals Expected Outcomes/Goals 1. PO intake to meet at least 75% of nutritional needs. 2. Wt stability, skin to remain intact, labs to approach WNL.
--- NOTE | 2018-02-07 13:23 | Consultation ---
DATE OF CONSULTATION: 02/07/2018 INPATIENT GI CONSULTATION CONSULTING PHYSICIAN: Dr. Kevin. REASON FOR CONSULTATION: G-tube placement. HISTORY OF PRESENT ILLNESS: The patient is an 82-year-old female with past medical history significant for hypertension, COPD, atrial fibrillation, and dementia, who has been admitted to the hospital since 01/20/2018 suffering from multiple infections including hospital-acquired pneumonia. She has been in the ICU, receiving spectrum antibiotics and had required pressure support at one point. She has remained in the ICU to this day and has not been able to take in any adequate nutrition as she is not able to swallow. She additionally had a tracheostomy placed this morning and thus, GI is asked for a G-tube placement for a long-term enteral nutrition. PAST MEDICAL HISTORY: COPD, atrial fibrillation, Alzheimer dementia, dyslipidemia, and hypertension. PAST SURGICAL HISTORY: No abdominal surgical history that is charted. FAMILY HISTORY: Noncontributory. SOCIAL HISTORY: No documented history of alcoholism or tobacco use in the chart. ALLERGIES: No known drug allergies. CURRENT MEDICATIONS: Tylenol, Maalox, albuterol as needed, amlodipine, Lipitor, Dulcolax, Pulmicort, Coreg, diltiazem, Vasotec, glucagon, insulin, losartan, milk of magnesia, meropenem, and Lopressor. PHYSICAL EXAMINATION: VITAL SIGNS: Blood pressure is 167/89, pulse 76 beats per minute, respiratory rate of 18, and pulse ox 99% on ventilator. GENERAL: The patient is lying at 30 degrees in bed. She is alert and oriented x0 with no apparent distress. HEAD, EARS, EYES, NOSE, AND THROAT: Normocephalic, atraumatic-appearing head. Pupils appear to be equal and reactive. Moist mucous membranes are noted. NECK: There is a tracheostomy in the midline. No obvious JVD. CHEST: Mechanical breath sounds bilaterally with crackles at the bases. CARDIOVASCULAR: S1, S2 present. Regular rate and rhythm. ABDOMEN: Soft, nontender to palpation. No guarding, rebound, or distention. EXTREMITIES: 1+ pitting edema bilaterally. SKIN: No obvious jaundice or cyanosis. LABORATORY DATA: White blood cell count 19.4, hemoglobin is 15.1, and platelet count is 99. INR 1.0. Sodium 136, BUN is 38, creatinine 1.3. No recent abdominal imaging. Abdomen and pelvis CT on 01/28/2018 shows mild diffuse ascites, mild irregularity in hepatic contour. Several small loculated air collections along the upper most portion of the abdominal wall, anasarca. IMPRESSION: This is an 82-year-old female with history of chronic obstructive pulmonary disease and hypertension, who has been in the hospital for a prolonged period suffering hospital-acquired pneumonia, now requiring tracheostomy placement. GI is asked for G-tube at this point, given the patient is unable to take any enteral nutrition by mouth. 1. Hospital-acquired pneumonia. 2. Chronic obstructive pulmonary disease. 3. Leukocytosis. 4. Dementia. 5. Dysphagia. 6. Respiratory failure with tracheostomy. DISCUSSION: Given that the patient has a recent tracheostomy, prolonged infection and has been unable to take nutrition by mouth, it is reasonable to place a G-tube for better nutritional support. The patient does have some ascites on her last CT scan, although this may have been due to fluid overload at that time from renal failure. The patient's family consents to a G-tube, and they do understand that if ascites persists, this may cause leakage around the G-tube site which may be difficult to treat. However, given that the patient is not taking any nutrition by mouth otherwise, they accept these risks and wished to go forward with the procedure. RECOMMENDATIONS: 1. We will try to replace the G-tube if appropriate at bedside in the ICU. 2. The patient will receive Ancef 1 gram prior to the procedure. 3. The risks and benefits were discussed with the patient's family who understand and have consented for the procedure and signed a consent form. Further recommendations to follow the endoscopy and G-tube placement. Thank you for allowing me to participate in this patient's care. Please call with any further questions. JOB# [id number]
--- NOTE | 2018-02-07 13:27 | General Progress Note ---
Subjective - Review of Systems Service Date: 02/07/18 Subjective: stuporous today, on vent Objective - Results Result Diagrams: 02/07/18 05:21 02/07/18 05:21 Recent Labs: Laboratory Last Values WBC 19.4 Th/cmm (4.8-10.8) H 02/07/18 05:21 RBC 4.78 Mil/cmm (3.80-5.20) 02/07/18 05:21 Hgb 15.1 gm/dL (12-16) 02/07/18 05:21 Hct 43.6 % (41.0-60) 02/07/18 05:21 MCV 91.2 fl (81-100) 02/07/18 05:21 MCH 31.6 pg (27.0-31.0) H 02/07/18 05:21 MCHC Differential 34.6 pg (28.0-36.0) 02/07/18 05:21 RDW 17.2 % (11.5-20.0) 02/07/18 05:21 Plt Count 99 Th/cmm (150-400) L 02/07/18 05:21 MPV 9.1 fl 02/07/18 05:21 Neutrophils % 87.3 % (40.0-80.0) H 02/05/18 07:00 Band Neutrophils % 3 % (0-10) 02/07/18 05:21 Lymphocytes % 7.0 % (20.0-50.0) L 02/05/18 07:00 Monocytes % 4.3 % (2.0-10.0) 02/05/18 07:00 Eosinophils % 1.4 % (0.0-5.0) 02/05/18 07:00 Basophils % 0.0 % (0.0-2.0) 02/05/18 07:00 Neutrophils (Manual) 85 % (40-80) H 02/07/18 05:21 Lymphocytes 5 % (20-50) L 02/07/18 05:21 Monocytes 7 % (2-10) 02/07/18 05:21 Eosinophils 2 % (0-5) 02/06/18 05:15 Basophils 0 % (0-3) 01/27/18 04:58 Platelet Estimate DECREASED PLATELETS (NORMAL) 02/07/18 05:21 Platelet Morphology NORMAL (NORMAL) 01/27/18 04:58 RBC Morph Micro Appear NORMAL (NORMAL) 01/27/18 04:58 Eos Smear Source URINE 01/28/18 17:10 Eos Smear Total Cells NONE SEEN (NONE SEEN) 01/28/18 17:10 PT 10.4 SECONDS (9.5-11.5) 02/07/18 05:21 INR 1.00 (0.5-1.4) 02/07/18 05:21 PTT (Actin FS) 28.4 SECONDS (26.0-38.0) 02/07/18 05:21 Specimen Source Arterial 01/24/18 17:45 Sample Site Left Radial 01/24/18 17:45 pH 7.41 (7.35-7.45) 01/24/18 17:45 pCO2 32.0 mmHg (35.0-45.0) L 01/24/18 17:45 pO2 397.0 mmHg (80.0-100.0) H 01/24/18 17:45 HCO3 22.3 mEq/L (20.0-26.0) 01/24/18 17:45 Base Excess -3.5 mEq/L (-3.0-3.0) L 01/24/18 17:45 O2 Saturation 100.0 % (92.0-100.0) 01/24/18 17:45 Bebo Test YES 01/24/18 17:45 Vent Rate 14 01/24/18 17:45 Inspired O2 100 01/24/18 17:45 Tidal Volume 450 01/24/18 17:45 PEEP 5 01/24/18 17:45 Pressure (ins/psv/peep) NA 01/24/18 17:45 Critical Value E.BRIDGES 01/24/18 17:45 Sodium 136 mEq/L (136-145) 02/07/18 05:21 Potassium 3.9 mEq/L (3.5-5.1) 02/07/18 05:21 Chloride 104 mEq/L (98-107) 02/07/18 05:21 Carbon Dioxide 24.5 mEq/L (21.0-31.0) 02/07/18 05:21 Anion Gap 11.4 (7.0-16.0) 02/07/18 05:21 BUN 38 mg/dL (7-25) H 02/07/18 05:21 Creatinine 1.3 mg/dL (0.6-1.2) H 02/07/18 05:21 Est GFR ( Amer) TNP 02/07/18 05:21 Est GFR (Non-Af Amer) TNP 02/07/18 05:21 BUN/Creatinine Ratio 29.2 02/07/18 05:21 Glucose 107 mg/dL (70-105) H 02/07/18 05:21 POC Glucose 111 MG/DL (70 - 105) H 02/07/18 05:18 Hemoglobin A1c % 5.1 % (4.0-6.0) 01/20/18 12:15 Plasma/Ser Osmolality 287 mOsmol/kg (280-301) 01/28/18 17:45 Whole Bld Lactic Acid 1.50 mmol/L (0.60-1.99) 01/28/18 13:40 Uric Acid 5.3 mg/dL (2.3-6.6) 01/30/18 05:06 Calcium 8.3 mg/dL (8.6-10.3) L 02/07/18 05:21 Phosphorus 3.3 mg/dL (2.5-5.0) 01/30/18 05:06 Magnesium 2.3 mg/dL (1.9-2.7) 01/30/18 05:06 Iron 54 ug/dL (27-139) 01/20/18 12:50 TIBC 159 ug/dL (250-450) L 01/20/18 12:50 Iron Saturation 34 % (15-55) 01/20/18 12:50 Unsaturated IBC 105 ug/dL (118-369) L 01/20/18 12:50 Ferritin 1230 ng/mL (15-150) H 01/20/18 12:50 Total Bilirubin 1.7 mg/dL (0.3-1.0) H 02/05/18 05:15 Direct Bilirubin 0.07 mg/dL (0.0-0.2) 01/20/18 12:30 AST 200 U/L (13-39) H 02/05/18 05:15 ALT 43 U/L (7-52) 02/05/18 05:15 Alkaline Phosphatase 413 U/L (34-104) H 02/05/18 05:15 Troponin I 0.03 ng/mL (0.01-0.05) 01/20/18 12:15 C-Reactive Protein 4.3 mg/dL (0.0-0.9) H 01/20/18 12:50 B-Natriuretic Peptide 185.0 pg/mL (5.0-100.0) H 01/25/18 04:20 Total Protein 4.9 gm/dL (6.0-8.3) L 02/05/18 05:15 Albumin 3.6 gm/dL (3.7-5.3) L 02/05/18 05:15 Globulin 1.3 gm/dL 02/05/18 05:15 Albumin/Globulin Ratio 2.8 (1.0-1.8) H 02/05/18 05:15 Triglycerides 97 mg/dL (<150) 01/20/18 12:15 Cholesterol 195 mg/dL (<200) 01/20/18 12:15 LDL Cholesterol Direct 152 mg/dL (75-193) 01/20/18 12:15 HDL Cholesterol 40 mg/dL (23-92) 01/20/18 12:15 Lipase 108 U/L (11-82) H 01/20/18 12:15 Free T4 1.12 ng/dL (0.82-1.77) 01/20/18 12:50 TSH 0.06 uIU/ml (0.34-5.60) L 01/20/18 12:15 Urine Source [place] 01/28/18 17:10 Urine Color YELLOW 01/28/18 17:10 Urine Clarity CLOUDY (CLEAR) H 01/28/18 17:10 Urine pH 6.0 (4.6 - 8.0) 01/28/18 17:10 Ur Specific [place] 1.020 (1.005-1.030) 01/28/18 17:10 Urine Protein 100 mg/dL (NEGATIVE) H 01/28/18 17:10 Urine Glucose (UA) NEGATIVE mg/dL (NEGATIVE) 01/28/18 17:10 Urine Ketones NEGATIVE mg/dL (NEGATIVE) 01/28/18 17:10 Urine Blood MODERATE (NEGATIVE) H 01/28/18 17:10 Urine Nitrate NEGATIVE (NEGATIVE) 01/28/18 17:10 Urine Bilirubin NEGATIVE (NEGATIVE) 01/28/18 17:10 Urine Urobilinogen 0.2 E.U./dL (0.2 - 1.0) 01/28/18 17:10 Ur Leukocyte Esterase MODERATE (NEGATIVE) H 01/28/18 17:10 Urine RBC 5-10 /hpf (0-5) H 01/28/18 17:10 Urine WBC 10-25 /hpf (0-5) H 01/28/18 17:10 Ur Epithelial Cells OCCASIONAL /lpf (FEW) 01/28/18 17:10 Urine Bacteria OCCASIONAL /hpf (NONE SEEN) 01/28/18 17:10 Urine Yeast MANY /hpf (NONE SEEN) H 01/28/18 17:10 Ur Random Sodium 56 mmol/L 01/28/18 17:10 Urine Creatinine 39.0 mg/dl (28.0-217.0) 01/28/18 17:10 Stool Occult Blood NEGATIVE (NEGATIVE) 02/05/18 14:50 Vancomycin Trough 27.8 ug/mL (10-20) H 01/26/18 23:00 Random Vancomycin 22.6 ug/mL (5.0-40.0) 02/03/18 04:20 Blood Type O POSITIVE 02/03/18 16:58 Antibody Screen NEGATIVE 02/03/18 16:58 Crossmatch See Detail 02/03/18 16:58 - Physical Exam Vitals and I&O: Vital Signs Temp 98.6 F 02/07/18 04:00 Pulse 76 02/07/18 08:39 Resp 18 02/07/18 06:00 BP 167/89 02/07/18 06:00 Pulse Ox 99 02/07/18 08:39 Intake & Output 02/06/18 02/07/18 02/07/18 18:59 06:59 18:59 Intake Total 775.73 370 Output Total 2090 75 Balance -1314.27 295 Weight (lbs) 53.609 kg 53.524 kg Intake: Intake, IV Amount 225.73 100 Meropenem 1 gm In Sodium 100 100 Chloride 0.9% 100 ml @ 100 mls/hr IV Q12H [facility] Rx #:[id number] Norepinephrine 4 mg In 125.73 Sodium Chloride 0.9% 250 ml @ 4 MCG/MIN 15.24 mls/ hr IV TITR [facility] Rx#: [id number] Tube Feeding 300 150 Other 250 120 Output: Urine 90 75 Hemodialysis 2000 Other: # Bowel Movements 1 1 Stool Characteristics Soft Brown Weight Source Bedscale Bedscale Active Medications: Current Medications Acetaminophen (Tylenol) 650 mg PO Q4H PRN PRN Reason: MILD PAIN OR TEMP >100.4 Stop: 03/21/18 16:07 Al Hydrox/Mg Hydrox/Simethicone (Maalox) 30 ml PO Q6HR PRN PRN Reason: GI DISTRESS Stop: 03/21/18 16:28 Albuterol/Ipratropium (Duoneb Neb) 3 ml HHN Q6HRT [facility] Stop: 03/30/18 00:59 Last Admin: 02/07/18 08:38 Dose: 3 ml Amlodipine Besylate (Norvasc) 10 mg PO DAILY [facility] Stop: 04/02/18 16:59 Last Admin: 02/06/18 09:26 Dose: Not Given Artificial Tears (Artificial Tears Ophth Soln) 1 drop EACH EYE Q2HR PRN PRN Reason: Dry Eye Stop: 03/27/18 09:28 Last Admin: 02/05/18 09:06 Dose: 1 drop Atorvastatin Calcium (Lipitor) 80 mg PO HS [facility] PRN Reason: Protocol Stop: 03/21/18 20:59 Last Admin: 02/06/18 20:45 Dose: 80 mg Bisacodyl (Dulcolax 10 Mg Supp) 10 mg RC DAILY PRN PRN Reason: Constipation Stop: 03/21/18 16:07 Budesonide (Pulmicort) 0.5 mg HHN BIDRT [facility] Stop: 04/01/18 18:59 Last Admin: 02/07/18 08:38 Dose: 0.5 mg Carvedilol (Coreg) 12.5 mg PO BID [facility] Stop: 03/21/18 16:59 Last Admin: 02/06/18 17:47 Dose: Not Given Chlorhexidine Gluconate (Peridex) 15 ml MM 0800,2000 [facility] Stop: 03/27/18 07:59 Last Admin: 02/06/18 20:45 Dose: 15 ml Dextrose (D50w) 50 ml IVP PRN PRN PRN Reason: HYPOGLYCEMIA Stop: 03/21/18 16:07 Diltiazem HCl (Cardizem) 60 mg PO Q6HR [facility] Stop: 03/21/18 17:59 Last Admin: 02/07/18 06:37 Dose: Not Given Enalaprilat (Vasotec) 2.5 mg IVP Q6HR PRN PRN Reason: SBP ABOVE 160 Stop: 03/25/18 11:59 Last Admin: 02/04/18 16:58 Dose: 2.5 mg Glucagon (Glucagen) 1 mg IVP PRN PRN PRN Reason: HYPOGLYCEMIA Stop: 03/21/18 16:25 Meropenem 1 gm/ Sodium (Chloride) 100 mls @ 100 mls/hr IV Q12H [facility] Stop: 03/26/18 08:59 Last Admin: 02/07/18 09:23 Dose: 100 mls/hr Phenylephrine HCl 10 mg/ (Sodium Chloride) 250 mls @ 75 mls/hr IV TITR [facility]; 50 MCG/MIN PRN Reason: Protocol Stop: 03/25/18 20:14 Norepinephrine Bitartrate 4 mg (/ Sodium Chloride) 254 mls @ 15.24 mls/hr IV TITR [facility]; 4 MCG/MIN PRN Reason: Protocol Stop: 03/26/18 08:14 Last Titration: 02/06/18 18:30 Dose: 0 mcg/min, 0 mls/hr Dextrose (D5w) 1,000 mls @ 50 mls/hr IV .Q20H [facility] Stop: 04/07/18 14:14 Last Admin: 02/07/18 00:00 Dose: 50 mls/hr Insulin Aspart (Novolog Insulin Sliding Scale) 0 units SUBQ Q6HR [facility] PRN Reason: Protocol Stop: 03/27/18 00:00 Last Admin: 02/07/18 06:37 Dose: Not Given Losartan Potassium (Cozaar) 100 mg PO DAILY [facility] Stop: 04/02/18 16:59 Last Admin: 02/06/18 09:26 Dose: Not Given Magnesium Hydroxide (Milk Of Magnesia) 30 ml PO DAILY PRN PRN Reason: IF NO BM IN TWO DAYS Stop: 03/21/18 16:07 Metoprolol Tartrate (Lopressor) 5 mg IV Q4H PRN PRN Reason: Tachycardia Stop: 03/25/18 12:29 Miscellaneous (Misc Oral Tab) 1 tab PO BID [facility] Stop: 02/08/18 09:01 Last Admin: 02/06/18 17:45 Dose: 1 tab Morphine Sulfate (Morphine) 1 mg IV Q4HR PRN PRN Reason: MOD TO SEVERE PAIN Stop: 04/02/18 15:59 Last Admin: 02/05/18 01:29 Dose: 1 mg Multivitamins/Vitamin C (Theragran) 1 tab PO DAILY [facility] Stop: 03/22/18 08:59 Last Admin: 02/06/18 09:23 Dose: 1 tab Ondansetron HCl (Zofran Odt) 4 mg PO Q6H PRN PRN Reason: Nausea / Vomiting Stop: 03/21/18 16:07 Pantoprazole Sodium (Protonix) 40 mg NG DAILY [facility] Stop: 03/28/18 16:59 Last Admin: 02/06/18 09:23 Dose: 40 mg Prednisone (Deltasone) 10 mg PO DAILY [facility] Stop: 03/22/18 08:59 Last Admin: 02/06/18 09:24 Dose: 10 mg Sodium Phosphate (Fleet Enema) 135 ml RC DAILY PRN PRN Reason: Constipation Stop: 03/21/18 16:07 Vitamin A (Vitamin A & D) 5 gm TP DAILY [facility] Stop: 03/22/18 08:59 Last Admin: 02/06/18 09:24 Dose: 5 gm General: Mild distress HEENT: Atraumatic, Mucous membr. moist/pink, Other (facial edema, trach) Neck: Supple, +2 carotid pulse wo bruit Cardiovascular: Regular rate, Normal S1, Normal S2 Lungs: Other (decreased BS, coarse rhonchi) Abdomen: Bowel sounds, Soft Extremities: Edema, Other (less edema) Neurological: Sensation intact Skin: no Rash Psych/Mental Status: Other (obtunded) - Procedures Procedures: Procedures Procedure Code Date INSERT EMERGENCY AIRWAY 75317 01/20/18 INSERTION OF ENDOTRACHEAL AIRWAY INTO [place], VIA OPENING [id number] 01/20/18 RESPIRATORY VENTILATION, GREATER THAN 96 CONSECUTIVE HOURS [id number] 01/20/18 VENT MGMT INPAT INIT DAY 40863 01/20/18 Assessment/Plan - Problem List Patient Problems: All Active Problems Dementia (Acute) F03.90 ELEVATED WBC, LUNG INFILTRATES (Acute) Leukocytosis (Acute) D72.829 Pneumonia (Acute) J18.9 - Assessment Assessment: LAURENCE Anuric 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 A. Fib Anemia of acute on CD non Gap met acid yeast UTI Anasarca - Plan Plan: Lab - Result Diagrams 01/29/18 05:10 01/29/18 05:10 Current Medications Acetaminophen (Tylenol) 650 mg PO Q4H PRN PRN Reason: MILD PAIN OR TEMP >100.4 Stop: 03/21/18 16:07 Al Hydrox/Mg Hydrox/Simethicone (Maalox) 30 ml PO Q6HR PRN PRN Reason: GI DISTRESS Stop: 03/21/18 16:28 Albuterol/Ipratropium (Duoneb Neb) 3 ml HHN Q6HRT [facility] Stop: 03/30/18 00:59 Last Admin: 01/29/18 13:21 Dose: 3 ml Artificial Tears (Artificial Tears Ophth Soln) 1 drop EACH EYE Q2HR PRN PRN Reason: Dry Eye Stop: 03/27/18 09:28 Last Admin: 01/26/18 10:13 Dose: 1 drop Atorvastatin Calcium (Lipitor) 80 mg PO HS [facility] PRN Reason: Protocol Stop: 03/21/18 20:59 Last Admin: 01/28/18 20:32 Dose: 80 mg Bisacodyl (Dulcolax 10 Mg Supp) 10 mg RC DAILY PRN PRN Reason: Constipation Stop: 03/21/18 16:07 Carvedilol (Coreg) 12.5 mg PO BID [facility] Stop: 03/21/18 16:59 Last Admin: 01/29/18 08:10 Dose: 12.5 mg Chlorhexidine Gluconate (Peridex) 15 ml MM 0800,2000 [facility] Stop: 03/27/18 07:59 Last Admin: 01/29/18 08:00 Dose: 15 ml Dextrose (D50w) 50 ml IVP PRN PRN PRN Reason: HYPOGLYCEMIA Stop: 03/21/18 16:07 Diltiazem HCl (Cardizem) 60 mg PO Q6HR [facility] Stop: 03/21/18 17:59 Last Admin: 01/29/18 12:10 Dose: 60 mg Enalaprilat (Vasotec) 2.5 mg IVP Q6HR PRN PRN Reason: SBP ABOVE 160 Stop: 03/25/18 11:59 Last Admin: 01/24/18 15:13 Dose: 2.5 mg Glucagon (Glucagen) 1 mg IVP PRN PRN PRN Reason: HYPOGLYCEMIA Stop: 03/21/18 16:25 Meropenem 1 gm/ Sodium (Chloride) 100 mls @ 100 mls/hr IV Q12H [facility] Stop: 03/26/18 08:59 Last Infusion: 01/29/18 10:30 Dose: Infused Phenylephrine HCl 10 mg/ (Sodium Chloride) 250 mls @ 75 mls/hr IV TITR [facility]; 50 MCG/MIN PRN Reason: Protocol Stop: 03/25/18 20:14 Norepinephrine Bitartrate 4 mg (/ Sodium Chloride) 254 mls @ 15.24 mls/hr IV TITR [facility]; 4 MCG/MIN PRN Reason: Protocol Stop: 03/26/18 08:14 Last Titration: 01/27/18 00:22 Dose: 0 mcg/min, 0 mls/hr Potassium Chloride/Dextrose/Sod Cl (D5-0.9ns W/Kcl 20meq) 1,000 mls @ 75 mls/ hr IV .[id number] [facility] Stop: 03/28/18 14:06 Last Admin: 01/29/18 12:54 Dose: 125 mls/hr Insulin Aspart (Novolog Insulin Sliding Scale) 0 units SUBQ Q6HR [facility] PRN Reason: Protocol Stop: 03/27/18 00:00 Last Admin: 01/29/18 12:09 Dose: 2 units Magnesium Hydroxide (Milk Of Magnesia) 30 ml PO DAILY PRN PRN Reason: IF NO BM IN TWO DAYS Stop: 03/21/18 16:07 Megestrol Acetate (Megace) 400 mg PO BID [facility] Stop: 03/21/18 16:59 Last Admin: 01/29/18 08:10 Dose: 400 mg Metoprolol Tartrate (Lopressor) 5 mg IV Q4H PRN PRN Reason: Tachycardia Stop: 03/25/18 12:29 Miscellaneous (Vancomycin Iv Per Pharmacy) 1 ea MC PRN [facility] Stop: 03/25/18 17:59 Multivitamins/Vitamin C (Theragran) 1 tab PO DAILY [facility] Stop: 03/22/18 08:59 Last Admin: 01/29/18 08:10 Dose: 1 tab Ondansetron HCl (Zofran Odt) 4 mg PO Q6H PRN PRN Reason: Nausea / Vomiting Stop: 03/21/18 16:07 Pantoprazole Sodium (Protonix) 40 mg NG DAILY [facility] Stop: 03/28/18 16:59 Last Admin: 01/29/18 08:10 Dose: 40 mg Prednisone (Deltasone) 10 mg PO DAILY [facility] Stop: 03/22/18 08:59 Last Admin: 01/29/18 08:10 Dose: 10 mg Sodium Bicarbonate (Sodium Bicarbonate) 650 mg PO BID [facility] PRN Reason: Protocol Stop: 03/29/18 16:59 Last Admin: 01/29/18 08:10 Dose: 650 mg Sodium Phosphate (Fleet Enema) 135 ml RC DAILY PRN PRN Reason: Constipation Stop: 03/21/18 16:07 Vitamin A (Vitamin A & D) 5 gm TP DAILY [facility] Stop: 03/22/18 08:59 Last Admin: 01/29/18 12:14 Dose: 5 Lab - Result Diagrams 02/07/18 05:21 02/07/18 05:21 kidney fnc slight improvement w/ BUN/CR of38/1.3 facial/peripheral edema decrease IVF & DC K replace Ca, P04, Mg start Diflucan on top of Meropenem new [place] placed today WBC down 19.4 administer NaHC03 Hgb/Hct up to 15.1/43.6 CXR still w/ b/l small effusion, infiltrates hold dialysis for now & monitor start Lasix drip due to effusions, peripheral/facial edema Nutritional Asmnt/Malnutr-PDOC - Dietary Evaluation Malnutrition Findings (Please click <Entered> for more info): Nutritional Asmnt/Malnutrition Start: 01/21/18 16: 32 Text: Status: Complete Freq: Document 01/21/18 16:32 LCTROY (Rec: 01/21/18 16:48 LCHENG [email or web address]) Nutritional Asmnt/Malnutrition Patient General Information Nutritional Screening High Risk Consult Diagnosis left lung infiltrate Pertinent Medical Hx/Surgical Hx dementia, HTN, hyperlipidemia per ER notes, no H&P at this time Subjective Information Pt seen sleeping at time of visit, not able to wake up for lunch. Per [employer], pt only had cereal and scrambled eggs this morning, not able to chew the [place] toast d/t weakness. Current Diet Order/ Nutrition Support low cholesterol 300gm Pertinent Medications D5-0.45ns, novolog, megace, theragran, piperacillin, vit A &D Pertinent Labs 01/21 BUN 32, Glucose 180, POC 142-261 01/20 A1c 5.1, POC 127-165 Nutritional Hx/Data Height 1.6 m Height (Calculated Centimeters) 160.0 Current Weight (lbs) 37.648 kg Weight (Calculated Kilograms) 37.6 Weight (Calculated Grams) 00309.2 [place] Body Weight 115 Body Mass Index (BMI) 14.7 Weight Status Underweight GI Symptoms GI Symptoms None Last BM none Difficult in: None Skin Integrity/Comment: reddened to vagina and coccyx Current %PO Poor (25-49%) Estimated Nutritional Goals Calories/Kcals/Kg 25-30 Kcals Calculated 5435-9350 Protein g/k Protein Calculated 52 Fluid: ml 1300-1560ml (1ml/kcal) Nutritional Problem 2. Problem Problem chewing difficulty Etiology weakness, sleepy Signs/Symptoms: pt need for mech soft diet 1. Problem Problem altered nutrition related lab values Etiology hyperglycemia Signs/Symptoms: Glucose 180, POC 127-261 Intervention/Recommendation Comments 1. Recommend Mech soft ground diet with Boost BID to increase nutrition intake. 2. Monitor PO intake, wt, labs and skin integrity 3. F/U as high risk in 2-3 days, 01/23-01/24 Expected Outcomes/Goals Expected Outcomes/Goals 1. PO intake to meet at least 75% of nutritional needs. 2. Wt stability, skin to remain intact, labs to approach WNL.
--- NOTE | 2018-02-07 13:51 | Infectious Disease Prog Note ---
Infectious Disease Subjective - Review of Systems Service Date: 02/07/18 Subjective: No fever, remains intubated orally. on the ventilator support. Infectious Disease Objective - Results Result Diagrams: 02/07/18 05:21 02/07/18 05:21 Recent Labs: Laboratory Last Values WBC 19.4 Th/cmm (4.8-10.8) H 02/07/18 05:21 RBC 4.78 Mil/cmm (3.80-5.20) 02/07/18 05:21 Hgb 15.1 gm/dL (12-16) 02/07/18 05:21 Hct 43.6 % (41.0-60) 02/07/18 05:21 MCV 91.2 fl (81-100) 02/07/18 05:21 MCH 31.6 pg (27.0-31.0) H 02/07/18 05:21 MCHC Differential 34.6 pg (28.0-36.0) 02/07/18 05:21 RDW 17.2 % (11.5-20.0) 02/07/18 05:21 Plt Count 99 Th/cmm (150-400) L 02/07/18 05:21 MPV 9.1 fl 02/07/18 05:21 Neutrophils % 87.3 % (40.0-80.0) H 02/05/18 07:00 Band Neutrophils % 3 % (0-10) 02/07/18 05:21 Lymphocytes % 7.0 % (20.0-50.0) L 02/05/18 07:00 Monocytes % 4.3 % (2.0-10.0) 02/05/18 07:00 Eosinophils % 1.4 % (0.0-5.0) 02/05/18 07:00 Basophils % 0.0 % (0.0-2.0) 02/05/18 07:00 Neutrophils (Manual) 85 % (40-80) H 02/07/18 05:21 Lymphocytes 5 % (20-50) L 02/07/18 05:21 Monocytes 7 % (2-10) 02/07/18 05:21 Eosinophils 2 % (0-5) 02/06/18 05:15 Basophils 0 % (0-3) 01/27/18 04:58 Platelet Estimate DECREASED PLATELETS (NORMAL) 02/07/18 05:21 Platelet Morphology NORMAL (NORMAL) 01/27/18 04:58 RBC Morph Micro Appear NORMAL (NORMAL) 01/27/18 04:58 Eos Smear Source URINE 01/28/18 17:10 Eos Smear Total Cells NONE SEEN (NONE SEEN) 01/28/18 17:10 PT 10.4 SECONDS (9.5-11.5) 02/07/18 05:21 INR 1.00 (0.5-1.4) 02/07/18 05:21 PTT (Actin FS) 28.4 SECONDS (26.0-38.0) 02/07/18 05:21 Specimen Source Arterial 01/24/18 17:45 Sample Site Left Radial 01/24/18 17:45 pH 7.41 (7.35-7.45) 01/24/18 17:45 pCO2 32.0 mmHg (35.0-45.0) L 01/24/18 17:45 pO2 397.0 mmHg (80.0-100.0) H 01/24/18 17:45 HCO3 22.3 mEq/L (20.0-26.0) 01/24/18 17:45 Base Excess -3.5 mEq/L (-3.0-3.0) L 01/24/18 17:45 O2 Saturation 100.0 % (92.0-100.0) 01/24/18 17:45 Bebo Test YES 01/24/18 17:45 Vent Rate 14 01/24/18 17:45 Inspired O2 100 01/24/18 17:45 Tidal Volume 450 01/24/18 17:45 PEEP 5 01/24/18 17:45 Pressure (ins/psv/peep) NA 01/24/18 17:45 Critical Value E.BRIDGES 01/24/18 17:45 Sodium 136 mEq/L (136-145) 02/07/18 05:21 Potassium 3.9 mEq/L (3.5-5.1) 02/07/18 05:21 Chloride 104 mEq/L (98-107) 02/07/18 05:21 Carbon Dioxide 24.5 mEq/L (21.0-31.0) 02/07/18 05:21 Anion Gap 11.4 (7.0-16.0) 02/07/18 05:21 BUN 38 mg/dL (7-25) H 02/07/18 05:21 Creatinine 1.3 mg/dL (0.6-1.2) H 02/07/18 05:21 Est GFR ( Amer) TNP 02/07/18 05:21 Est GFR (Non-Af Amer) TNP 02/07/18 05:21 BUN/Creatinine Ratio 29.2 02/07/18 05:21 Glucose 107 mg/dL (70-105) H 02/07/18 05:21 POC Glucose 128 MG/DL (70 - 105) H 02/07/18 12:48 Hemoglobin A1c % 5.1 % (4.0-6.0) 01/20/18 12:15 Plasma/Ser Osmolality 287 mOsmol/kg (280-301) 01/28/18 17:45 Whole Bld Lactic Acid 1.50 mmol/L (0.60-1.99) 01/28/18 13:40 Uric Acid 5.3 mg/dL (2.3-6.6) 01/30/18 05:06 Calcium 8.3 mg/dL (8.6-10.3) L 02/07/18 05:21 Phosphorus 3.3 mg/dL (2.5-5.0) 01/30/18 05:06 Magnesium 2.3 mg/dL (1.9-2.7) 01/30/18 05:06 Iron 54 ug/dL (27-139) 01/20/18 12:50 TIBC 159 ug/dL (250-450) L 01/20/18 12:50 Iron Saturation 34 % (15-55) 01/20/18 12:50 Unsaturated IBC 105 ug/dL (118-369) L 01/20/18 12:50 Ferritin 1230 ng/mL (15-150) H 01/20/18 12:50 Total Bilirubin 1.7 mg/dL (0.3-1.0) H 02/05/18 05:15 Direct Bilirubin 0.07 mg/dL (0.0-0.2) 01/20/18 12:30 AST 200 U/L (13-39) H 02/05/18 05:15 ALT 43 U/L (7-52) 02/05/18 05:15 Alkaline Phosphatase 413 U/L (34-104) H 02/05/18 05:15 Troponin I 0.03 ng/mL (0.01-0.05) 01/20/18 12:15 C-Reactive Protein 4.3 mg/dL (0.0-0.9) H 01/20/18 12:50 B-Natriuretic Peptide 185.0 pg/mL (5.0-100.0) H 01/25/18 04:20 Total Protein 4.9 gm/dL (6.0-8.3) L 02/05/18 05:15 Albumin 3.6 gm/dL (3.7-5.3) L 02/05/18 05:15 Globulin 1.3 gm/dL 02/05/18 05:15 Albumin/Globulin Ratio 2.8 (1.0-1.8) H 02/05/18 05:15 Triglycerides 97 mg/dL (<150) 01/20/18 12:15 Cholesterol 195 mg/dL (<200) 01/20/18 12:15 LDL Cholesterol Direct 152 mg/dL (75-193) 01/20/18 12:15 HDL Cholesterol 40 mg/dL (23-92) 01/20/18 12:15 Lipase 108 U/L (11-82) H 01/20/18 12:15 Free T4 1.12 ng/dL (0.82-1.77) 01/20/18 12:50 TSH 0.06 uIU/ml (0.34-5.60) L 01/20/18 12:15 Urine Source ZAPIEN PORT 01/28/18 17:10 Urine Color YELLOW 01/28/18 17:10 Urine Clarity CLOUDY (CLEAR) H 01/28/18 17:10 Urine pH 6.0 (4.6 - 8.0) 01/28/18 17:10 Ur Specific Stephen 1.020 (1.005-1.030) 01/28/18 17:10 Urine Protein 100 mg/dL (NEGATIVE) H 01/28/18 17:10 Urine Glucose (UA) NEGATIVE mg/dL (NEGATIVE) 01/28/18 17:10 Urine Ketones NEGATIVE mg/dL (NEGATIVE) 01/28/18 17:10 Urine Blood MODERATE (NEGATIVE) H 01/28/18 17:10 Urine Nitrate NEGATIVE (NEGATIVE) 01/28/18 17:10 Urine Bilirubin NEGATIVE (NEGATIVE) 01/28/18 17:10 Urine Urobilinogen 0.2 E.U./dL (0.2 - 1.0) 01/28/18 17:10 Ur Leukocyte Esterase MODERATE (NEGATIVE) H 01/28/18 17:10 Urine RBC 5-10 /hpf (0-5) H 01/28/18 17:10 Urine WBC 10-25 /hpf (0-5) H 01/28/18 17:10 Ur Epithelial Cells OCCASIONAL /lpf (FEW) 01/28/18 17:10 Urine Bacteria OCCASIONAL /hpf (NONE SEEN) 01/28/18 17:10 Urine Yeast MANY /hpf (NONE SEEN) H 01/28/18 17:10 Ur Random Sodium 56 mmol/L 01/28/18 17:10 Urine Creatinine 39.0 mg/dl (28.0-217.0) 01/28/18 17:10 Stool Occult Blood NEGATIVE (NEGATIVE) 02/05/18 14:50 Vancomycin Trough 27.8 ug/mL (10-20) H 01/26/18 23:00 Random Vancomycin 22.6 ug/mL (5.0-40.0) 02/03/18 04:20 Blood Type O POSITIVE 02/03/18 16:58 Antibody Screen NEGATIVE 02/03/18 16:58 Crossmatch See Detail 02/03/18 16:58 - Physical Exam Vitals and I&O: Vital Signs Temp 98.6 F 02/07/18 04:00 Pulse 76 02/07/18 08:39 Resp 18 02/07/18 06:00 BP 167/89 02/07/18 06:00 Pulse Ox 99 02/07/18 08:39 Intake & Output 02/06/18 02/07/18 02/07/18 18:59 06:59 18:59 Intake Total 775.73 370 100 Output Total 2090 75 Balance -1314.27 295 100 Weight (lbs) 53.609 kg 53.524 kg Intake: Intake, IV Amount 225.73 100 100 Meropenem 1 gm In Sodium 100 100 100 Chloride 0.9% 100 ml @ 100 mls/hr IV Q12H [facility] Rx #:[id number] Norepinephrine 4 mg In 125.73 Sodium Chloride 0.9% 250 ml @ 4 MCG/MIN 15.24 mls/ hr IV TITR [facility] Rx#: [id number] Tube Feeding 300 150 Other 250 120 Output: Urine 90 75 Hemodialysis 1999 Other: # Bowel Movements 1 1 Stool Characteristics Soft Brown Weight Source Bedscale Bedscale Active Medications: Current Medications Acetaminophen (Tylenol) 650 mg PO Q4H PRN PRN Reason: MILD PAIN OR TEMP >100.4 Stop: 03/21/18 16:07 Al Hydrox/Mg Hydrox/Simethicone (Maalox) 30 ml PO Q6HR PRN PRN Reason: GI DISTRESS Stop: 03/21/18 16:28 Albuterol/Ipratropium (Duoneb Neb) 3 ml HHN Q6HRT [facility] [place] Stop: 03/30/18 00:59 Last Admin: 02/07/18 08:38 Dose: 3 ml Amlodipine Besylate (Norvasc) 10 mg PO DAILY [facility] [place] Stop: 04/02/18 16:59 Last Admin: 02/06/18 09:26 Dose: Not Given Artificial Tears (Artificial Tears Ophth Soln) 1 drop EACH EYE Q2HR PRN PRN Reason: Dry Eye Stop: 03/27/18 09:28 Last Admin: 02/05/18 09:06 Dose: 1 drop Atorvastatin Calcium (Lipitor) 80 mg PO HS [facility] PRN Reason: Protocol Stop: 03/21/18 20:59 Last Admin: 02/06/18 20:45 Dose: 80 mg Bisacodyl (Dulcolax 10 Mg Supp) 10 mg RC DAILY PRN PRN Reason: Constipation Stop: 03/21/18 16:07 Budesonide (Pulmicort) 0.5 mg HHN BIDRT [facility] [place] Stop: 04/01/18 18:59 Last Admin: 02/07/18 08:38 Dose: 0.5 mg Carvedilol (Coreg) 12.5 mg PO BID [facility] [place] Stop: 03/21/18 16:59 Last Admin: 02/06/18 17:47 Dose: Not Given Chlorhexidine Gluconate (Peridex) 15 ml MM 799,1999 [facility] [place] Stop: 03/27/18 07:59 Last Admin: 02/06/18 20:45 Dose: 15 ml Dextrose (D50w) 50 ml IVP PRN PRN PRN Reason: HYPOGLYCEMIA Stop: 03/21/18 16:07 Diltiazem HCl (Cardizem) 60 mg PO Q6HR [facility] [place] Stop: 03/21/18 17:59 Last Admin: 02/07/18 06:37 Dose: Not Given Enalaprilat (Vasotec) 2.5 mg IVP Q6HR PRN PRN Reason: SBP ABOVE 160 Stop: 03/25/18 11:59 Last Admin: 02/04/18 16:58 Dose: 2.5 mg Glucagon (Glucagen) 1 mg IVP PRN PRN PRN Reason: HYPOGLYCEMIA Stop: 03/21/18 16:25 Meropenem 1 gm/ Sodium (Chloride) 100 mls @ 100 mls/hr IV Q12H [facility] Stop: 03/26/18 08:59 Last Infusion: 02/07/18 10:30 Dose: Infused Phenylephrine HCl 10 mg/ (Sodium Chloride) 250 mls @ 75 mls/hr IV TITR [facility]; 50 MCG/MIN PRN Reason: Protocol Stop: 03/25/18 20:14 Norepinephrine Bitartrate 4 mg (/ Sodium Chloride) 254 mls @ 15.24 mls/hr IV TITR [facility]; 4 MCG/MIN PRN Reason: Protocol Stop: 03/26/18 08:14 Last Titration: 02/06/18 18:30 Dose: 0 mcg/min, 0 mls/hr Dextrose (D5w) 1,000 mls @ 50 mls/hr IV .Q20H [facility] Stop: 04/07/18 14:14 Last Admin: 02/07/18 00:00 Dose: 50 mls/hr Furosemide 100 mg/ Sodium (Chloride) 100 mls @ 5 mls/hr IV TITR [facility] Stop: 04/08/18 13:29 Insulin Aspart (Novolog Insulin Sliding Scale) 0 units SUBQ Q6HR [facility] PRN Reason: Protocol Stop: 03/27/18 00:00 Last Admin: 02/07/18 13:49 Dose: Not Given Losartan Potassium (Cozaar) 100 mg PO DAILY [facility] Stop: 04/02/18 16:59 Last Admin: 02/06/18 09:26 Dose: Not Given Magnesium Hydroxide (Milk Of Magnesia) 30 ml PO DAILY PRN PRN Reason: IF NO BM IN TWO DAYS Stop: 03/21/18 16:07 Metoprolol Tartrate (Lopressor) 5 mg IV Q4H PRN PRN Reason: Tachycardia Stop: 03/25/18 12:29 Miscellaneous (Misc Oral Tab) 1 tab PO BID [facility] [place] Stop: 02/08/18 09:01 Last Admin: 02/06/18 17:45 Dose: 1 tab Morphine Sulfate (Morphine) 1 mg IV Q4HR PRN PRN Reason: MOD TO SEVERE PAIN Stop: 04/02/18 15:59 Last Admin: 02/05/18 01:29 Dose: 1 mg Multivitamins/Vitamin C (Theragran) 1 tab PO DAILY [facility] [place] Stop: 03/22/18 08:59 Last Admin: 02/06/18 09:23 Dose: 1 tab Ondansetron HCl (Zofran Odt) 4 mg PO Q6H PRN PRN Reason: Nausea / Vomiting Stop: 03/21/18 16:07 Pantoprazole Sodium (Protonix) 40 mg NG DAILY [facility] [place] Stop: 03/28/18 16:59 Last Admin: 02/06/18 09:23 Dose: 40 mg Prednisone (Deltasone) 10 mg PO DAILY [facility] [place] Stop: 03/22/18 08:59 Last Admin: 02/06/18 09:24 Dose: 10 mg Sodium Phosphate (Fleet Enema) 135 ml RC DAILY PRN PRN Reason: Constipation Stop: 03/21/18 16:07 Vitamin A (Vitamin A & D) 5 gm TP DAILY [facility] [place] Stop: 03/22/18 08:59 Last Admin: 02/06/18 09:24 Dose: 5 gm General: no acute distress, well developed, well nourished HEENT: atraumatic, normocephalic, PERRLA Neck: supple, thyromegaly Cardiovascular: S1S2, regular Lungs: clear to auscultation bilaterally, clear to percussion Abdomen: soft, no tender Extremities: no cyanosis, no clubbing Neurological: awake, alert, oriented Skin: intact - Procedures Procedures: Procedures Procedure Code Date INSERT EMERGENCY AIRWAY 53785 01/20/18 INSERTION OF ENDOTRACHEAL AIRWAY INTO [place], VIA OPENING [id number] 01/20/18 RESPIRATORY VENTILATION, GREATER THAN 96 CONSECUTIVE HOURS [id number] 01/20/18 VENT MGMT INPAT INIT DAY 45588 01/20/18 Infectious Disease Assmt/Plan - Problem List Patient Problems: All Active Problems Dementia (Acute) F03.90 ELEVATED WBC, LUNG INFILTRATES (Acute) Leukocytosis (Acute) D72.829 Pneumonia (Acute) J18.9 - Assessment Assessment: 1. Leukocytosis. suspect sepsis. 2. Pneumonia. L lung. 3. Dementia 4. S/p CP arrest. 5. Anoxic encephalopathy. 6. VDRF. 7. Increaing creatinine. LAURENCE. oliguric. 8. pulmonary aspergillosis. - Plan Plan: Continue meropenem. Continue voriconazole po ( not IV). 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 Leukocytosis, reactive, improving on repeat test. Nutritional Asmnt/Malnutr-PDOC - Dietary Evaluation Malnutrition Findings (Please click <Entered> for more info): Nutritional Asmnt/Malnutrition Start: 01/21/18 16: 32 Text: Status: Complete Freq: Document 01/21/18 16:32 [facility] (Rec: 01/21/18 16:48 [id number] Nutritional Asmnt/Malnutrition Patient General Information Nutritional Screening High Risk Consult Diagnosis left lung infiltrate Pertinent Medical Hx/Surgical Hx dementia, HTN, hyperlipidemia per ER notes, no H&P at this time Subjective Information Pt seen sleeping at time of visit, not able to wake up for lunch. Per [employer], pt only had cereal and scrambled eggs this morning, not able to chew the [place] toast d/t weakness. Current Diet Order/ Nutrition Support low cholesterol 300gm Pertinent Medications D5-0.45ns, novolog, megace, theragran, piperacillin, vit A &D Pertinent Labs 01/21 BUN 32, Glucose 180, POC 142-261 01/20 A1c 5.1, POC 127-165 Nutritional Hx/Data Height 1.6 m Height (Calculated Centimeters) 160.0 Current Weight (lbs) 37.648 kg Weight (Calculated Kilograms) 37.6 Weight (Calculated Grams) 38543.2 [place] Body Weight 115 Body Mass Index (BMI) 14.7 Weight Status Underweight GI Symptoms GI Symptoms None Last BM none Difficult in: None Skin Integrity/Comment: reddened to vagina and coccyx Current %PO Poor (25-49%) Estimated Nutritional Goals Calories/Kcals/Kg 25-30 Kcals Calculated [id number] Protein g/k Protein Calculated 52 Fluid: ml 1300-1560ml (1ml/kcal) Nutritional Problem 2. Problem Problem chewing difficulty Etiology weakness, sleepy Signs/Symptoms: pt need for mech soft diet 1. Problem Problem altered nutrition related lab values Etiology hyperglycemia Signs/Symptoms: Glucose 180, POC 127-261 Intervention/Recommendation Comments 1. Recommend [facility] soft ground diet with Boost BID to increase nutrition intake. 2. Monitor PO intake, wt, labs and skin integrity 3. F/U as high risk in 2-3 days, 01/23-01/24 Expected Outcomes/Goals Expected Outcomes/Goals 1. PO intake to meet at least 75% of nutritional needs. 2. Wt stability, skin to remain intact, labs to approach WNL.
--- NOTE | 2018-02-07 13:53 | Infectious Disease Prog Note ---
Infectious Disease Subjective - Review of Systems Service Date: 02/07/18 Subjective: No fever, remains intubated orally. on the ventilator support. Infectious Disease Objective - Results Result Diagrams: 02/07/18 05:21 02/07/18 05:21 Recent Labs: Laboratory Last Values WBC 19.4 Th/cmm (4.8-10.8) H 02/07/18 05:21 RBC 4.78 Mil/cmm (3.80-5.20) 02/07/18 05:21 Hgb 15.1 gm/dL (12-16) 02/07/18 05:21 Hct 43.6 % (41.0-60) 02/07/18 05:21 MCV 91.2 fl (81-100) 02/07/18 05:21 MCH 31.6 pg (27.0-31.0) H 02/07/18 05:21 MCHC Differential 34.6 pg (28.0-36.0) 02/07/18 05:21 RDW 17.2 % (11.5-20.0) 02/07/18 05:21 Plt Count 99 Th/cmm (150-400) L 02/07/18 05:21 MPV 9.1 fl 02/07/18 05:21 Neutrophils % 87.3 % (40.0-80.0) H 02/05/18 07:00 Band Neutrophils % 3 % (0-10) 02/07/18 05:21 Lymphocytes % 7.0 % (20.0-50.0) L 02/05/18 07:00 Monocytes % 4.3 % (2.0-10.0) 02/05/18 07:00 Eosinophils % 1.4 % (0.0-5.0) 02/05/18 07:00 Basophils % 0.0 % (0.0-2.0) 02/05/18 07:00 Neutrophils (Manual) 85 % (40-80) H 02/07/18 05:21 Lymphocytes 5 % (20-50) L 02/07/18 05:21 Monocytes 7 % (2-10) 02/07/18 05:21 Eosinophils 2 % (0-5) 02/06/18 05:15 Basophils 0 % (0-3) 01/27/18 04:58 Platelet Estimate DECREASED PLATELETS (NORMAL) 02/07/18 05:21 Platelet Morphology NORMAL (NORMAL) 01/27/18 04:58 RBC Morph Micro Appear NORMAL (NORMAL) 01/27/18 04:58 Eos Smear Source URINE 01/28/18 17:10 Eos Smear Total Cells NONE SEEN (NONE SEEN) 01/28/18 17:10 PT 10.4 SECONDS (9.5-11.5) 02/07/18 05:21 INR 1.00 (0.5-1.4) 02/07/18 05:21 PTT (Actin FS) 28.4 SECONDS (26.0-38.0) 02/07/18 05:21 Specimen Source Arterial 01/24/18 17:45 Sample Site Left Radial 01/24/18 17:45 pH 7.41 (7.35-7.45) 01/24/18 17:45 pCO2 32.0 mmHg (35.0-45.0) L 01/24/18 17:45 pO2 397.0 mmHg (80.0-100.0) H 01/24/18 17:45 HCO3 22.3 mEq/L (20.0-26.0) 01/24/18 17:45 Base Excess -3.5 mEq/L (-3.0-3.0) L 01/24/18 17:45 O2 Saturation 100.0 % (92.0-100.0) 01/24/18 17:45 Bebo Test YES 01/24/18 17:45 Vent Rate 14 01/24/18 17:45 Inspired O2 100 01/24/18 17:45 Tidal Volume 450 01/24/18 17:45 PEEP 5 01/24/18 17:45 Pressure (ins/psv/peep) NA 01/24/18 17:45 Critical Value E.BRIDGES 01/24/18 17:45 Sodium 136 mEq/L (136-145) 02/07/18 05:21 Potassium 3.9 mEq/L (3.5-5.1) 02/07/18 05:21 Chloride 104 mEq/L (98-107) 02/07/18 05:21 Carbon Dioxide 24.5 mEq/L (21.0-31.0) 02/07/18 05:21 Anion Gap 11.4 (7.0-16.0) 02/07/18 05:21 BUN 38 mg/dL (7-25) H 02/07/18 05:21 Creatinine 1.3 mg/dL (0.6-1.2) H 02/07/18 05:21 Est GFR ( Amer) TNP 02/07/18 05:21 Est GFR (Non-Af Amer) TNP 02/07/18 05:21 BUN/Creatinine Ratio 29.2 02/07/18 05:21 Glucose 107 mg/dL (70-105) H 02/07/18 05:21 POC Glucose 128 MG/DL (70 - 105) H 02/07/18 12:48 Hemoglobin A1c % 5.1 % (4.0-6.0) 01/20/18 12:15 Plasma/Ser Osmolality 287 mOsmol/kg (280-301) 01/28/18 17:45 Whole Bld Lactic Acid 1.50 mmol/L (0.60-1.99) 01/28/18 13:40 Uric Acid 5.3 mg/dL (2.3-6.6) 01/30/18 05:06 Calcium 8.3 mg/dL (8.6-10.3) L 02/07/18 05:21 Phosphorus 3.3 mg/dL (2.5-5.0) 01/30/18 05:06 Magnesium 2.3 mg/dL (1.9-2.7) 01/30/18 05:06 Iron 54 ug/dL (27-139) 01/20/18 12:50 TIBC 159 ug/dL (250-450) L 01/20/18 12:50 Iron Saturation 34 % (15-55) 01/20/18 12:50 Unsaturated IBC 105 ug/dL (118-369) L 01/20/18 12:50 Ferritin 1230 ng/mL (15-150) H 01/20/18 12:50 Total Bilirubin 1.7 mg/dL (0.3-1.0) H 02/05/18 05:15 Direct Bilirubin 0.07 mg/dL (0.0-0.2) 01/20/18 12:30 AST 200 U/L (13-39) H 02/05/18 05:15 ALT 43 U/L (7-52) 02/05/18 05:15 Alkaline Phosphatase 413 U/L (34-104) H 02/05/18 05:15 Troponin I 0.03 ng/mL (0.01-0.05) 01/20/18 12:15 C-Reactive Protein 4.3 mg/dL (0.0-0.9) H 01/20/18 12:50 B-Natriuretic Peptide 185.0 pg/mL (5.0-100.0) H 01/25/18 04:20 Total Protein 4.9 gm/dL (6.0-8.3) L 02/05/18 05:15 Albumin 3.6 gm/dL (3.7-5.3) L 02/05/18 05:15 Globulin 1.3 gm/dL 02/05/18 05:15 Albumin/Globulin Ratio 2.8 (1.0-1.8) H 02/05/18 05:15 Triglycerides 97 mg/dL (<150) 01/20/18 12:15 Cholesterol 195 mg/dL (<200) 01/20/18 12:15 LDL Cholesterol Direct 152 mg/dL (75-193) 01/20/18 12:15 HDL Cholesterol 40 mg/dL (23-92) 01/20/18 12:15 Lipase 108 U/L (11-82) H 01/20/18 12:15 Free T4 1.12 ng/dL (0.82-1.77) 01/20/18 12:50 TSH 0.06 uIU/ml (0.34-5.60) L 01/20/18 12:15 Urine Source [place] 01/28/18 17:10 Urine Color YELLOW 01/28/18 17:10 Urine Clarity CLOUDY (CLEAR) H 01/28/18 17:10 Urine pH 6.0 (4.6 - 8.0) 01/28/18 17:10 Ur Specific [place] 1.020 (1.005-1.030) 01/28/18 17:10 Urine Protein 100 mg/dL (NEGATIVE) H 01/28/18 17:10 Urine Glucose (UA) NEGATIVE mg/dL (NEGATIVE) 01/28/18 17:10 Urine Ketones NEGATIVE mg/dL (NEGATIVE) 01/28/18 17:10 Urine Blood MODERATE (NEGATIVE) H 01/28/18 17:10 Urine Nitrate NEGATIVE (NEGATIVE) 01/28/18 17:10 Urine Bilirubin NEGATIVE (NEGATIVE) 01/28/18 17:10 Urine Urobilinogen 0.2 E.U./dL (0.2 - 1.0) 01/28/18 17:10 Ur Leukocyte Esterase MODERATE (NEGATIVE) H 01/28/18 17:10 Urine RBC 5-10 /hpf (0-5) H 01/28/18 17:10 Urine WBC 10-25 /hpf (0-5) H 01/28/18 17:10 Ur Epithelial Cells OCCASIONAL /lpf (FEW) 01/28/18 17:10 Urine Bacteria OCCASIONAL /hpf (NONE SEEN) 01/28/18 17:10 Urine Yeast MANY /hpf (NONE SEEN) H 01/28/18 17:10 Ur Random Sodium 56 mmol/L 01/28/18 17:10 Urine Creatinine 39.0 mg/dl (28.0-217.0) 01/28/18 17:10 Stool Occult Blood NEGATIVE (NEGATIVE) 02/05/18 14:50 Vancomycin Trough 27.8 ug/mL (10-20) H 01/26/18 23:00 Random Vancomycin 22.6 ug/mL (5.0-40.0) 02/03/18 04:20 Blood Type O POSITIVE 02/03/18 16:58 Antibody Screen NEGATIVE 02/03/18 16:58 Crossmatch See Detail 02/03/18 16:58 - Physical Exam Vitals and I&O: Vital Signs Temp 98.6 F 02/07/18 04:00 Pulse 76 02/07/18 08:39 Resp 18 02/07/18 06:00 BP 167/89 02/07/18 06:00 Pulse Ox 99 02/07/18 08:39 Intake & Output 02/06/18 02/07/18 02/07/18 18:59 06:59 18:59 Intake Total 775.73 370 100 Output Total 2090 75 Balance -1314.27 295 100 Weight (lbs) 53.609 kg 53.524 kg Intake: Intake, IV Amount 225.73 100 100 Meropenem 1 gm In Sodium 100 100 100 Chloride 0.9% 100 ml @ 100 mls/hr IV Q12H [facility] Rx #:[id number] Norepinephrine 4 mg In 125.73 Sodium Chloride 0.9% 250 ml @ 4 MCG/MIN 15.24 mls/ hr IV TITR [facility] Rx#: [id number] Tube Feeding 300 150 Other 250 120 Output: Urine 90 75 Hemodialysis 1999 Other: # Bowel Movements 1 1 Stool Characteristics Soft Brown Weight Source Bedscale Bedscale Active Medications: Current Medications Acetaminophen (Tylenol) 650 mg PO Q4H PRN PRN Reason: MILD PAIN OR TEMP >100.4 Stop: 03/21/18 16:07 Al Hydrox/Mg Hydrox/Simethicone (Maalox) 30 ml PO Q6HR PRN PRN Reason: GI DISTRESS Stop: 03/21/18 16:28 Albuterol/Ipratropium (Duoneb Neb) 3 ml HHN Q6HRT [facility] Stop: 03/30/18 00:59 Last Admin: 02/07/18 08:38 Dose: 3 ml Amlodipine Besylate (Norvasc) 10 mg PO DAILY [facility] Stop: 04/02/18 16:59 Last Admin: 02/06/18 09:26 Dose: Not Given Artificial Tears (Artificial Tears Ophth Soln) 1 drop EACH EYE Q2HR PRN PRN Reason: Dry Eye Stop: 03/27/18 09:28 Last Admin: 02/05/18 09:06 Dose: 1 drop Atorvastatin Calcium (Lipitor) 80 mg PO HS [facility] PRN Reason: Protocol Stop: 03/21/18 20:59 Last Admin: 02/06/18 20:45 Dose: 80 mg Bisacodyl (Dulcolax 10 Mg Supp) 10 mg RC DAILY PRN PRN Reason: Constipation Stop: 03/21/18 16:07 Budesonide (Pulmicort) 0.5 mg HHN BIDRT [facility] Stop: 04/01/18 18:59 Last Admin: 02/07/18 08:38 Dose: 0.5 mg Carvedilol (Coreg) 12.5 mg PO BID [facility] Stop: 03/21/18 16:59 Last Admin: 02/06/18 17:47 Dose: Not Given Chlorhexidine Gluconate (Peridex) 15 ml MM 799,1999 [facility] Stop: 03/27/18 07:59 Last Admin: 02/06/18 20:45 Dose: 15 ml Dextrose (D50w) 50 ml IVP PRN PRN PRN Reason: HYPOGLYCEMIA Stop: 03/21/18 16:07 Diltiazem HCl (Cardizem) 60 mg PO Q6HR [facility] Stop: 03/21/18 17:59 Last Admin: 02/07/18 06:37 Dose: Not Given Enalaprilat (Vasotec) 2.5 mg IVP Q6HR PRN PRN Reason: SBP ABOVE 160 Stop: 03/25/18 11:59 Last Admin: 02/04/18 16:58 Dose: 2.5 mg Glucagon (Glucagen) 1 mg IVP PRN PRN PRN Reason: HYPOGLYCEMIA Stop: 03/21/18 16:25 Meropenem 1 gm/ Sodium (Chloride) 100 mls @ 100 mls/hr IV Q12H [facility] Stop: 03/26/18 08:59 Last Infusion: 02/07/18 10:30 Dose: Infused Phenylephrine HCl 10 mg/ (Sodium Chloride) 250 mls @ 75 mls/hr IV TITR [facility]; 50 MCG/MIN PRN Reason: Protocol Stop: 03/25/18 20:14 Norepinephrine Bitartrate 4 mg (/ Sodium Chloride) 254 mls @ 15.24 mls/hr IV TITR [facility]; 4 MCG/MIN PRN Reason: Protocol Stop: 03/26/18 08:14 Last Titration: 02/06/18 18:30 Dose: 0 mcg/min, 0 mls/hr Dextrose (D5w) 1,000 mls @ 50 mls/hr IV .Q20H [facility] Stop: 04/07/18 14:14 Last Admin: 02/07/18 00:00 Dose: 50 mls/hr Furosemide 100 mg/ Sodium (Chloride) 100 mls @ 5 mls/hr IV TITR [facility] Stop: 04/08/18 13:29 Insulin Aspart (Novolog Insulin Sliding Scale) 0 units SUBQ Q6HR [facility] PRN Reason: Protocol Stop: 03/27/18 00:00 Last Admin: 02/07/18 13:49 Dose: Not Given Losartan Potassium (Cozaar) 100 mg PO DAILY [facility] Stop: 04/02/18 16:59 Last Admin: 02/06/18 09:26 Dose: Not Given Magnesium Hydroxide (Milk Of Magnesia) 30 ml PO DAILY PRN PRN Reason: IF NO BM IN TWO DAYS Stop: 03/21/18 16:07 Metoprolol Tartrate (Lopressor) 5 mg IV Q4H PRN PRN Reason: Tachycardia Stop: 03/25/18 12:29 Miscellaneous (Misc Oral Tab) 1 tab PO BID [facility] Stop: 02/08/18 09:01 Last Admin: 02/06/18 17:45 Dose: 1 tab Morphine Sulfate (Morphine) 1 mg IV Q4HR PRN PRN Reason: MOD TO SEVERE PAIN Stop: 04/02/18 15:59 Last Admin: 02/05/18 01:29 Dose: 1 mg Multivitamins/Vitamin C (Theragran) 1 tab PO DAILY [facility] Stop: 03/22/18 08:59 Last Admin: 02/06/18 09:23 Dose: 1 tab Ondansetron HCl (Zofran Odt) 4 mg PO Q6H PRN PRN Reason: Nausea / Vomiting Stop: 03/21/18 16:07 Pantoprazole Sodium (Protonix) 40 mg NG DAILY [facility] Stop: 03/28/18 16:59 Last Admin: 02/06/18 09:23 Dose: 40 mg Prednisone (Deltasone) 10 mg PO DAILY [facility] Stop: 03/22/18 08:59 Last Admin: 02/06/18 09:24 Dose: 10 mg Sodium Phosphate (Fleet Enema) 135 ml RC DAILY PRN PRN Reason: Constipation Stop: 03/21/18 16:07 Vitamin A (Vitamin A & D) 5 gm TP DAILY [facility] Stop: 03/22/18 08:59 Last Admin: 02/06/18 09:24 Dose: 5 gm General: no acute distress, well developed, well nourished HEENT: atraumatic, normocephalic, PERRLA, EOMI Neck: supple, no thyromegaly Cardiovascular: S1S2, regular Lungs: clear to percussion, rhonchi Abdomen: soft, no tender, no distended Extremities: no cyanosis, no clubbing, no edema Neurological: other (comatose.), no awake, no alert, no oriented Skin: intact - Procedures Procedures: Procedures Procedure Code Date INSERT EMERGENCY AIRWAY 55672 01/20/18 INSERTION OF ENDOTRACHEAL AIRWAY INTO TRACHEA, VIA OPENING [id number] 01/20/18 RESPIRATORY VENTILATION, GREATER THAN 96 CONSECUTIVE HOURS [id number] 01/20/18 VENT MGMT INPAT INIT DAY 57334 01/20/18 Infectious Disease Assmt/Plan - Problem List Patient Problems: All Active Problems Dementia (Acute) F03.90 ELEVATED WBC, LUNG INFILTRATES (Acute) Leukocytosis (Acute) D72.829 Pneumonia (Acute) J18.9 - Assessment Assessment: 1. Leukocytosis. suspect sepsis. 2. Pneumonia. L lung. 3. Dementia 4. S/p CP arrest. 5. Anoxic encephalopathy. 6. VDRF. 7. Increaing creatinine. LAURENCE. oliguric. 8. pulmonary aspergillosis. - Plan Plan: Continue meropenem. Continue voriconazole po ( not IV). 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 Leukocytosis, reactive, improving on repeat test. Nutritional Asmnt/Malnutr-PDOC - Dietary Evaluation Malnutrition Findings (Please click <Entered> for more info): Nutritional Asmnt/Malnutrition Start: 01/21/18 16: 32 Text: Status: Complete Freq: Document 01/21/18 16:32 LCHENG (Rec: 01/21/18 16:48 LCHENG [email or web address]) Nutritional Asmnt/Malnutrition Patient General Information Nutritional Screening High Risk Consult Diagnosis left lung infiltrate Pertinent Medical Hx/Surgical Hx dementia, HTN, hyperlipidemia per ER notes, no H&P at this time Subjective Information Pt seen sleeping at time of visit, not able to wake up for lunch. Per [employer], pt only had cereal and scrambled eggs this morning, not able to chew the Yi toast d/t weakness. Current Diet Order/ Nutrition Support low cholesterol 300gm Pertinent Medications D5-0.45ns, novolog, megace, theragran, piperacillin, vit A &D Pertinent Labs 01/21 BUN 32, Glucose 180, POC 142-261 01/20 A1c 5.1, POC 127-165 Nutritional Hx/Data Height 1.6 m Height (Calculated Centimeters) 160.0 Current Weight (lbs) 37.648 kg Weight (Calculated Kilograms) 37.6 Weight (Calculated Grams) 38371.2 [place] Body Weight 115 Body Mass Index (BMI) 14.7 Weight Status Underweight GI Symptoms GI Symptoms None Last BM none Difficult in: None Skin Integrity/Comment: reddened to vagina and coccyx Current %PO Poor (25-49%) Estimated Nutritional Goals Calories/Kcals/Kg 25-30 Kcals Calculated 2274-7398 Protein g/k Protein Calculated 52 Fluid: ml 1300-1560ml (1ml/kcal) Nutritional Problem 2. Problem Problem chewing difficulty Etiology weakness, sleepy Signs/Symptoms: pt need for mech soft diet 1. Problem Problem altered nutrition related lab values Etiology hyperglycemia Signs/Symptoms: Glucose 180, POC 127-261 Intervention/Recommendation Comments 1. Recommend [facility] soft ground diet with Boost BID to increase nutrition intake. 2. Monitor PO intake, wt, labs and skin integrity 3. F/U as high risk in 2-3 days, 01/23-01/24 Expected Outcomes/Goals Expected Outcomes/Goals 1. PO intake to meet at least 75% of nutritional needs. 2. Wt stability, skin to remain intact, labs to approach WNL.
[2018-02-07] MEDS: Pantoprazole 40 mg/Packet NG SCH (14:06)
[2018-02-07] MEDS: Multivitamin Tab PO SCH (14:06)
[2018-02-07] MEDS: VORICONAZOLE 200 MG PO SCH ×2 (14:06→18:36)
[2018-02-07] MEDS: Vitamin A/Vitamin D 5 gm Packet TP SCH (14:07)
--- NOTE | 2018-02-07 17:53 | Operative Report ---
DATE OF SURGERY: 02/07/2018 PREOPERATIVE DIAGNOSIS: 1. Respiratory failure. 2. Acute renal failure. 3. Dementia. POSTOPERATIVE DIAGNOSES: 1. Respiratory failure. 2. Acute renal failure. 3. Dementia. OPERATION DONE: Tracheostomy. SURGEON: Domingo Waldron M.D. ANESTHESIA: MAC. ANESTHESIOLOGIST: Gigi. ESTIMATED BLOOD LOSS: 10 mL. INDICATIONS FOR SURGERY: The patient unable to be weaned off the respirator. DESCRIPTION OF PROCEDURE: Timeout was called. The neck was prepped with Betadine and draped. A 1% lidocaine was used to infiltrate the neck below the cricoid. Incision was made. Bleeders were coagulated. The deep cervical fascia was divided vertically. The trachea was severely calcified. Second and third tracheal rings were divided vertically and horizontally, some bleeding were electrocoagulated. Nepali 6 tracheostomy tube was inserted. Following satisfactory hemostasis, the wound was packed with iodoform gauze and the trach tube was anchored on the waiting with 2-0 silk and umbilical tape was tied around the neck. The patient tolerated the procedure well. JOB# [id number] MTDD
[2018-02-08] MEDS: Diltiazem 30 mg Tab PO SCH ×4 (00:23→17:39)
[2018-02-08] MEDS: INSULIN ASPART SLIDING SCALE 100 UNITS/ML UNIT SUBQ SCH ×4 (00:41→17:40)
[2018-02-08] MEDS: Albuterol/Ipratropium Neb 3 ML AERS HHN SCH ×3 (01:08→18:28)
--- NOTE | 2018-02-08 04:13 | Operative Report ---
DATE OF SURGERY: 02/07/2018 PROCEDURE PERFORMED: EGD with biopsy, EGD with PEG placement. ENDOSCOPIST: Suleman Talamantes M.D. PREOPERATIVE DIAGNOSIS: Dysphagia, septic shock, respiratory failure requiring tracheostomy. POSTOPERATIVE DIAGNOSIS: Duodenitis, gastritis and successful G-tube placement. INDICATION: The patient is an 82-year-old female who has been admitted to the hospital for several weeks suffering from hospital-acquired pneumonia requiring prolonged stay in the ICU as well as recent tracheostomy placement this morning due to persistent respiratory failure. GI is asked for a G-tube placement given the patient is unable to take in adequate nutrition by mouth. CONSENT: Informed consent was obtained from the patient's healthcare proxy. The risks and benefits of this procedure were discussed including, but not limited to infection, bleeding, perforation, need for surgery, cardiopulmonary complications, missed pathology, G-tube site related infection, G-tube site related bleeding, premature removal of the G-tube by the patient and . The patient's healthcare proxy indicated they understood these risks and wished to go forward with the procedure and signed a consent form. ANESTHESIA: The patient was kept in bedside in ICU and the procedure was performed under the care of the general anesthesiologist. PROCEDURE IN DETAIL: The patient was kept in supine position and was hooked to the appropriate monitoring devices in the ICU at bedside. After administration of general anesthesia, a mouthpiece was inserted and secured. Next, the gastroscope was introduced into the mouth and guided under direct visualization into the esophagus, stomach and duodenum. The GE junction was located at 36 cm from the incisors. There was evidence of a 2 cm hiatal hernia. There is no evidence of esophagitis, mass lesion in the esophagus, otherwise. Within the stomach, there was gastritis in the antrum, although no discrete mass or ulcer. Biopsies were taken from this area for histology. In the duodenum, there was duodenitis in the duodenal bulb as well as possible small polyp tissue and this area was biopsied for histology. Second portion of duodenum also appeared to have mild duodenitis. An appropriate position for the G-tube was found in the lesser curve of the stomach. This was confirmed by a single poke method with 1:1 correlation on the internal endoscopic view as well as transillumination. Next, a 22-gauge needle was used to insert subcutaneous lidocaine into the skin in this area. A skin needle was used then to easily enter into the stomach, which was observed from the endoscopic side. After this, a small incision was made on the skin and a trocar was placed through the incision under direct visualization from the endoscopic site into the stomach. Trocar was noted to ____ the stomach with ease. After this, the trocar was secured in place by a snare device and the needle was removed and a guidewire was inserted through the trocar. The guidewire was grasped with a snare and the guidewire and scope were withdrawn from the body as well as the previous NG tube that patient had in place. A 20-Irish G-tube was then affixed to the guidewire and thoroughly looped using pull technique. The guidewire and G-tube were pulled down through the mouth, through the esophagus and snugged to the abdominal wall. At this point, antibiotic ointment was placed at the skin site and the external bumper was placed. The scope was then reintroduced in the mouth to confirm the location. The internal bumper at the appropriate location of the abdominal wall of the stomach. The internal bumper was freely twisted on manipulation. At this point, the procedure was complete. Of note, the patient did receive 1 gram of Ancef prior to the start of the procedure. RECOMMENDATION: 1. We will follow up the biopsy results from the gastric antrum and duodenum and treat any H. pylori if found. 2. The G-tube can be used immediately for water flushes and medications. 3. Feeds can start in approximately 8:00 hours at 10 mL an hour and increase by 10 mL per hour to a goal rate of 3. 4. Check residuals every 6 hours and hold for greater than 100 mL. 5. Flush the J-tube with 100 mL of water every 6 hours. I will continue to follow the patient. Thank you for allowing me to participate in her care. Please call with any further questions. JOB# [id number]
[2018-02-08 05:02] LABS: HEMOGLOBIN 14.3 gm/dL (12-16); MANUAL DIFF REQUIRED? YES; MEAN CELL VOLUME 90.9 fl (81-100); MEAN CORPUSCULAR HEMOGLOBIN 31.7 pg (27.0-31.0); MEAN CORPUSCULAR HGB CONC 34.9 pg (28.0-36.0); MEAN PLATELET VOLUME 9.1 fl; PLATELET COUNT 82 Th/cmm (150-400); RED BLOOD COUNT 4.51 Mil/cmm (3.80-5.20)
[2018-02-08 05:11] LABS: WHITE BLOOD COUNT 24.6 Th/cmm (4.8-10.8)
[2018-02-08 05:34] LABS: ANION GAP 11.3 (7.0-16.0); BUN - UREA NITROGEN 46 mg/dL (7-25); CALCIUM SERUM 7.8 mg/dL (8.6-10.3); CARBON DIOXIDE 22.6 mEq/L (21.0-31.0); CHLORIDE 98 mEq/L (98-107); CREATININE - SERUM 1.5 mg/dL (0.6-1.2); GLUCOSE 112 mg/dL (70-105); POTASSIUM SERUM 3.9 mEq/L (3.5-5.1); SODIUM SERUM 128 mEq/L (136-145)
[2018-02-08 05:45] LABS: BAND NEUTROPHILE 3 % (0-10); LYMPHOCYTE 9 % (20-50); MONOCYTE 1 % (2-10); NEUTROPHILS 87 % (40-80); TOTAL CELLS COUNTED 100
[2018-02-08 05:46] LABS: PLATELET ESTIMATE SLIGHT DECREASED (NORMAL)
[2018-02-08] MEDS: Budesonide 0.5 Mg/2 mL Ud HHN SCH ×2 (06:37→18:28)
[2018-02-08] MEDS ORDERED: Meropenem 1 GM in Sodium Chloride 0.9% 100 ML IV SCH (08:00)
--- NOTE | 2018-02-08 08:21 | GI Progress Note ---
Subjective - Review of Systems Service Date: 02/08/18 Subjective: G tube/trach placed yesterday, no other events Objective - Results Result Diagrams: 02/08/18 04:16 02/08/18 04:16 Recent Labs: Laboratory Last Values WBC 24.6 Th/cmm (4.8-10.8) H* D 02/08/18 04:16 RBC 4.51 Mil/cmm (3.80-5.20) 02/08/18 04:16 Hgb 14.3 gm/dL (12-16) 02/08/18 04:16 Hct 41.0 % (41.0-60) 02/08/18 04:16 MCV 90.9 fl (81-100) 02/08/18 04:16 MCH 31.7 pg (27.0-31.0) H 02/08/18 04:16 MCHC Differential 34.9 pg (28.0-36.0) 02/08/18 04:16 RDW 17.0 % (11.5-20.0) 02/08/18 04:16 Plt Count 82 Th/cmm (150-400) L 02/08/18 04:16 MPV 9.1 fl 02/08/18 04:16 Neutrophils % 87.3 % (40.0-80.0) H 02/05/18 07:00 Band Neutrophils % 3 % (0-10) 02/08/18 04:16 Lymphocytes % 7.0 % (20.0-50.0) L 02/05/18 07:00 Monocytes % 4.3 % (2.0-10.0) 02/05/18 07:00 Eosinophils % 1.4 % (0.0-5.0) 02/05/18 07:00 Basophils % 0.0 % (0.0-2.0) 02/05/18 07:00 Neutrophils (Manual) 87 % (40-80) H 02/08/18 04:16 Lymphocytes 9 % (20-50) L 02/08/18 04:16 Monocytes 1 % (2-10) L 02/08/18 04:16 Eosinophils 2 % (0-5) 02/06/18 05:15 Basophils 0 % (0-3) 01/27/18 04:58 Platelet Estimate SLIGHT DECREASED (NORMAL) 02/08/18 04:16 Platelet Morphology NORMAL (NORMAL) 01/27/18 04:58 RBC Morph Micro Appear NORMAL (NORMAL) 01/27/18 04:58 Eos Smear Source URINE 01/28/18 17:10 Eos Smear Total Cells NONE SEEN (NONE SEEN) 01/28/18 17:10 PT 10.4 SECONDS (9.5-11.5) 02/07/18 05:21 INR 1.00 (0.5-1.4) 02/07/18 05:21 PTT (Actin FS) 28.4 SECONDS (26.0-38.0) 02/07/18 05:21 Specimen Source Arterial 01/24/18 17:45 Sample Site Left Radial 01/24/18 17:45 pH 7.41 (7.35-7.45) 01/24/18 17:45 pCO2 32.0 mmHg (35.0-45.0) L 01/24/18 17:45 pO2 397.0 mmHg (80.0-100.0) H 01/24/18 17:45 HCO3 22.3 mEq/L (20.0-26.0) 01/24/18 17:45 Base Excess -3.5 mEq/L (-3.0-3.0) L 01/24/18 17:45 O2 Saturation 100.0 % (92.0-100.0) 01/24/18 17:45 Bebo Test YES 01/24/18 17:45 Vent Rate 14 01/24/18 17:45 Inspired O2 100 01/24/18 17:45 Tidal Volume 450 01/24/18 17:45 PEEP 5 01/24/18 17:45 Pressure (ins/psv/peep) NA 01/24/18 17:45 Critical Value E.BRIDGES 01/24/18 17:45 Sodium 128 mEq/L (136-145) L 02/08/18 04:16 Potassium 3.9 mEq/L (3.5-5.1) 02/08/18 04:16 Chloride 98 mEq/L (98-107) 02/08/18 04:16 Carbon Dioxide 22.6 mEq/L (21.0-31.0) 02/08/18 04:16 Anion Gap 11.3 (7.0-16.0) 02/08/18 04:16 BUN 46 mg/dL (7-25) H 02/08/18 04:16 Creatinine 1.5 mg/dL (0.6-1.2) H 02/08/18 04:16 Est GFR ( Amer) TNP 02/08/18 04:16 Est GFR (Non-Af Amer) TNP 02/08/18 04:16 BUN/Creatinine Ratio 30.7 02/08/18 04:16 Glucose 112 mg/dL (70-105) H 02/08/18 04:16 POC Glucose 96 MG/DL (70 - 105) 02/08/18 06:33 Hemoglobin A1c % 5.1 % (4.0-6.0) 01/20/18 12:15 Plasma/Ser Osmolality 287 mOsmol/kg (280-301) 01/28/18 17:45 Whole Bld Lactic Acid 1.50 mmol/L (0.60-1.99) 01/28/18 13:40 Uric Acid 5.3 mg/dL (2.3-6.6) 01/30/18 05:06 Calcium 7.8 mg/dL (8.6-10.3) L 02/08/18 04:16 Phosphorus 3.3 mg/dL (2.5-5.0) 01/30/18 05:06 Magnesium 2.3 mg/dL (1.9-2.7) 01/30/18 05:06 Iron 54 ug/dL (27-139) 01/20/18 12:50 TIBC 159 ug/dL (250-450) L 01/20/18 12:50 Iron Saturation 34 % (15-55) 01/20/18 12:50 Unsaturated IBC 105 ug/dL (118-369) L 01/20/18 12:50 Ferritin 1230 ng/mL (15-150) H 01/20/18 12:50 Total Bilirubin 1.7 mg/dL (0.3-1.0) H 02/05/18 05:15 Direct Bilirubin 0.07 mg/dL (0.0-0.2) 01/20/18 12:30 AST 200 U/L (13-39) H 02/05/18 05:15 ALT 43 U/L (7-52) 02/05/18 05:15 Alkaline Phosphatase 413 U/L (34-104) H 02/05/18 05:15 Troponin I 0.03 ng/mL (0.01-0.05) 01/20/18 12:15 C-Reactive Protein 4.3 mg/dL (0.0-0.9) H 01/20/18 12:50 B-Natriuretic Peptide 185.0 pg/mL (5.0-100.0) H 01/25/18 04:20 Total Protein 4.9 gm/dL (6.0-8.3) L 02/05/18 05:15 Albumin 3.6 gm/dL (3.7-5.3) L 02/05/18 05:15 Globulin 1.3 gm/dL 02/05/18 05:15 Albumin/Globulin Ratio 2.8 (1.0-1.8) H 02/05/18 05:15 Triglycerides 97 mg/dL (<150) 01/20/18 12:15 Cholesterol 195 mg/dL (<200) 01/20/18 12:15 LDL Cholesterol Direct 152 mg/dL (75-193) 01/20/18 12:15 HDL Cholesterol 40 mg/dL (23-92) 01/20/18 12:15 Lipase 108 U/L (11-82) H 01/20/18 12:15 Free T4 1.12 ng/dL (0.82-1.77) 01/20/18 12:50 TSH 0.06 uIU/ml (0.34-5.60) L 01/20/18 12:15 Urine Source ZAPIEN PORT 01/28/18 17:10 Urine Color YELLOW 01/28/18 17:10 Urine Clarity CLOUDY (CLEAR) H 01/28/18 17:10 Urine pH 6.0 (4.6 - 8.0) 01/28/18 17:10 Ur Specific Waldo 1.020 (1.005-1.030) 01/28/18 17:10 Urine Protein 100 mg/dL (NEGATIVE) H 01/28/18 17:10 Urine Glucose (UA) NEGATIVE mg/dL (NEGATIVE) 01/28/18 17:10 Urine Ketones NEGATIVE mg/dL (NEGATIVE) 01/28/18 17:10 Urine Blood MODERATE (NEGATIVE) H 01/28/18 17:10 Urine Nitrate NEGATIVE (NEGATIVE) 01/28/18 17:10 Urine Bilirubin NEGATIVE (NEGATIVE) 01/28/18 17:10 Urine Urobilinogen 0.2 E.U./dL (0.2 - 1.0) 01/28/18 17:10 Ur Leukocyte Esterase MODERATE (NEGATIVE) H 01/28/18 17:10 Urine RBC 5-10 /hpf (0-5) H 01/28/18 17:10 Urine WBC 10-25 /hpf (0-5) H 01/28/18 17:10 Ur Epithelial Cells OCCASIONAL /lpf (FEW) 01/28/18 17:10 Urine Bacteria OCCASIONAL /hpf (NONE SEEN) 01/28/18 17:10 Urine Yeast MANY /hpf (NONE SEEN) H 01/28/18 17:10 Ur Random Sodium 56 mmol/L 01/28/18 17:10 Urine Creatinine 39.0 mg/dl (28.0-217.0) 01/28/18 17:10 Stool Occult Blood NEGATIVE (NEGATIVE) 02/05/18 14:50 Vancomycin Trough 27.8 ug/mL (10-20) H 01/26/18 23:00 Random Vancomycin 22.6 ug/mL (5.0-40.0) 02/03/18 04:20 Blood Type O POSITIVE 02/03/18 16:58 Antibody Screen NEGATIVE 02/03/18 16:58 Crossmatch See Detail 02/03/18 16:58 - Physical Exam Vitals and I&O: Vital Signs Temp 96.4 F 02/08/18 04:00 Pulse 79 02/08/18 07:00 Resp 31 02/08/18 07:00 BP 109/64 02/08/18 07:00 Pulse Ox 100 02/08/18 07:00 Intake & Output 02/07/18 02/08/18 02/08/18 18:59 06:59 18:59 Intake Total 100 150 Output Total 200 Balance 100 -50 Weight (lbs) 54.034 kg Intake: Intake, IV Amount 100 100 Meropenem 1 gm In Sodium 100 100 Chloride 0.9% 100 ml @ 100 mls/hr IV Q12H [facility] Rx #:[id number] Other 50 Output: Urine 200 Other: # Bowel Movements 1 Weight Source Bedscale Active Medications: Current Medications Acetaminophen (Tylenol) 650 mg PO Q4H PRN PRN Reason: MILD PAIN OR TEMP >100.4 Stop: 03/21/18 16:07 Al Hydrox/Mg Hydrox/Simethicone (Maalox) 30 ml PO Q6HR PRN PRN Reason: GI DISTRESS Stop: 03/21/18 16:28 Albuterol/Ipratropium (Duoneb Neb) 3 ml HHN Q6HRT [facility] Stop: 03/30/18 00:59 Last Admin: 02/08/18 06:37 Dose: 3 ml Amlodipine Besylate (Norvasc) 10 mg PO DAILY [facility] Stop: 04/02/18 16:59 Last Admin: 02/07/18 14:03 Dose: Not Given Artificial Tears (Artificial Tears Ophth Soln) 1 drop EACH EYE Q2HR PRN PRN Reason: Dry Eye Stop: 03/27/18 09:28 Last Admin: 02/05/18 09:06 Dose: 1 drop Atorvastatin Calcium (Lipitor) 80 mg PO HS [facility] PRN Reason: Protocol Stop: 03/21/18 20:59 Last Admin: 02/06/18 20:45 Dose: 80 mg Bisacodyl (Dulcolax 10 Mg Supp) 10 mg RC DAILY PRN PRN Reason: Constipation Stop: 03/21/18 16:07 Budesonide (Pulmicort) 0.5 mg HHN BIDRT [facility] Stop: 04/01/18 18:59 Last Admin: 02/08/18 06:37 Dose: 0.5 mg Carvedilol (Coreg) 12.5 mg PO BID [facility] Stop: 03/21/18 16:59 Last Admin: 02/07/18 18:36 Dose: 12.5 mg Chlorhexidine Gluconate (Peridex) 15 ml MM 0800,2000 [facility] Stop: 03/27/18 07:59 Last Admin: 02/07/18 20:40 Dose: 15 ml Dextrose (D50w) 50 ml IVP PRN PRN PRN Reason: HYPOGLYCEMIA Stop: 03/21/18 16:07 Diltiazem HCl (Cardizem) 60 mg PO Q6HR [facility] Stop: 03/21/18 17:59 Last Admin: 02/08/18 06:11 Dose: Not Given Enalaprilat (Vasotec) 2.5 mg IVP Q6HR PRN PRN Reason: SBP ABOVE 160 Stop: 03/25/18 11:59 Last Admin: 02/07/18 13:53 Dose: 2.5 mg Glucagon (Glucagen) 1 mg IVP PRN PRN PRN Reason: HYPOGLYCEMIA Stop: 03/21/18 16:25 Meropenem 1 gm/ Sodium (Chloride) 100 mls @ 100 mls/hr IV Q12H [facility] Stop: 03/26/18 08:59 Last Infusion: 02/07/18 22:00 Dose: Infused Phenylephrine HCl 10 mg/ (Sodium Chloride) 250 mls @ 75 mls/hr IV TITR [facility]; 50 MCG/MIN PRN Reason: Protocol Stop: 03/25/18 20:14 Norepinephrine Bitartrate 4 mg (/ Sodium Chloride) 254 mls @ 15.24 mls/hr IV TITR [facility]; 4 MCG/MIN PRN Reason: Protocol Stop: 03/26/18 08:14 Last Titration: 02/06/18 18:30 Dose: 0 mcg/min, 0 mls/hr Dextrose (D5w) 1,000 mls @ 50 mls/hr IV .Q20H [facility] Stop: 04/07/18 14:14 Last Admin: 02/07/18 00:00 Dose: 50 mls/hr Furosemide 100 mg/ Sodium (Chloride) 100 mls @ 5 mls/hr IV TITR [facility] Stop: 04/08/18 13:29 Meropenem 1 gm/ Sodium (Chloride) 100 mls @ 100 mls/hr IV Q12H [facility] Stop: 04/09/18 07:59 Insulin Aspart (Novolog Insulin Sliding Scale) 0 units SUBQ Q6HR [facility] PRN Reason: Protocol Stop: 03/27/18 00:00 Last Admin: 02/08/18 06:40 Dose: Not Given Losartan Potassium (Cozaar) 100 mg PO DAILY [facility] Stop: 04/02/18 16:59 Last Admin: 02/07/18 09:00 Dose: Not Given Magnesium Hydroxide (Milk Of Magnesia) 30 ml PO DAILY PRN PRN Reason: IF NO BM IN TWO DAYS Stop: 03/21/18 16:07 Metoprolol Tartrate (Lopressor) 5 mg IV Q4H PRN PRN Reason: Tachycardia Stop: 03/25/18 12:29 Miscellaneous (Misc Oral Tab) 1 tab PO BID [facility] Stop: 02/08/18 09:01 Last Admin: 02/07/18 18:36 Dose: 1 tab Morphine Sulfate (Morphine) 1 mg IV Q4HR PRN PRN Reason: MOD TO SEVERE PAIN Stop: 04/02/18 15:59 Last Admin: 02/05/18 01:29 Dose: 1 mg Multivitamins/Vitamin C (Theragran) 1 tab PO DAILY [facility] Stop: 03/22/18 08:59 Last Admin: 02/07/18 14:06 Dose: Not Given Ondansetron HCl (Zofran Odt) 4 mg PO Q6H PRN PRN Reason: Nausea / Vomiting Stop: 03/21/18 16:07 Pantoprazole Sodium (Protonix) 40 mg NG DAILY [facility] Stop: 03/28/18 16:59 Last Admin: 02/07/18 14:06 Dose: Not Given Prednisone (Deltasone) 10 mg PO DAILY [facility] Stop: 03/22/18 08:59 Last Admin: 02/07/18 14:06 Dose: Not Given Sodium Phosphate (Fleet Enema) 135 ml RC DAILY PRN PRN Reason: Constipation Stop: 03/21/18 16:07 Vitamin A (Vitamin A & D) 5 gm TP DAILY [facility] Stop: 03/22/18 08:59 Last Admin: 02/07/18 14:07 Dose: Not Given General: Mild distress HEENT: Atraumatic, Mucous membr. moist/pink, Other (facial edema, trach) Neck: Supple, +2 carotid pulse wo bruit Cardiovascular: Regular rate Lungs: Other (decreased BS, coarse rhonchi) Abdomen: Bowel sounds, Soft Extremities: Edema, Other (less edema) Neurological: Sensation intact Skin: no Rash Psych/Mental Status: Other (obtunded) - Procedures Procedures: Procedures Procedure Code Date BYPASS TRACHEA TO CUTANEOUS WITH TRACH DEV, OPEN APPROACH [id number] 01/20/[address] GASTROSTOMY TUBE [id number] 01/20/18 INCISION OF WINDPIPE [id number] 01/20/18 INSERT EMERGENCY AIRWAY [id number] 01/20/18 INSERTION OF ENDOTRACHEAL AIRWAY INTO TRACHEA, VIA OPENING [id number] 01/20/18 INSERTION OF FEEDING DEVICE INTO STOMACH, PERC APPROACH [id number] 01/20/18 RESPIRATORY VENTILATION, GREATER THAN 96 CONSECUTIVE HOURS [id number] 01/20/18 VENT MGMT INPAT INIT DAY [id number] 01/20/18 Assessment/Plan - Problem List Patient Problems: All Active Problems Dementia (Acute) F03.90 ELEVATED WBC, LUNG INFILTRATES (Acute) Leukocytosis (Acute) D72.829 Pneumonia (Acute) J18.9 - Assessment Assessment: # Sepsis # Dementia # Resp failure # Dysphagia G tube placed on 02/07 at bedside after trach was placed earlier in the day. Gastritis and duodenitis also noted. Plan: - start feeds with recommendation from nutrition today. Increase to goal rate - hold for residual > 100cc - flush with 100cc water every 6 hours - f/u gastric biopsies - other management as per primary and consultants
[2018-02-08] MEDS: Chlorhexidine Gluconate 0.12% 15mL Mouthwash MM SCH ×2 (08:30→20:15)
[2018-02-08] MEDS: Meropenem 1 GM in Sodium Chloride 0.9% 100 ML IV SCH ×2 (08:50→20:47)
[2018-02-08] MEDS: VORICONAZOLE 200 MG PO SCH (09:36)
[2018-02-08] MEDS: Vitamin A/Vitamin D 5 gm Packet TP SCH (09:37)
[2018-02-08] MEDS: Multivitamin Tab PO SCH (09:37)
[2018-02-08] MEDS: Pantoprazole 40 mg/Packet NG SCH (09:37)
[2018-02-08] MEDS: Furosemide 100 MG in Sodium Chloride 0.9% 90 ML IV SCH ×2 (11:56→21:23)
--- NOTE | 2018-02-08 13:16 | General Progress Note ---
Subjective - Review of Systems Service Date: 02/08/18 Subjective: stuporous today, on vent Objective - Results Result Diagrams: 02/08/18 04:16 02/08/18 04:16 Recent Labs: Laboratory Last Values WBC 24.6 Th/cmm (4.8-10.8) H* D 02/08/18 04:16 RBC 4.51 Mil/cmm (3.80-5.20) 02/08/18 04:16 Hgb 14.3 gm/dL (12-16) 02/08/18 04:16 Hct 41.0 % (41.0-60) 02/08/18 04:16 MCV 90.9 fl (81-100) 02/08/18 04:16 MCH 31.7 pg (27.0-31.0) H 02/08/18 04:16 MCHC Differential 34.9 pg (28.0-36.0) 02/08/18 04:16 RDW 17.0 % (11.5-20.0) 02/08/18 04:16 Plt Count 82 Th/cmm (150-400) L 02/08/18 04:16 MPV 9.1 fl 02/08/18 04:16 Neutrophils % 87.3 % (40.0-80.0) H 02/05/18 07:00 Band Neutrophils % 3 % (0-10) 02/08/18 04:16 Lymphocytes % 7.0 % (20.0-50.0) L 02/05/18 07:00 Monocytes % 4.3 % (2.0-10.0) 02/05/18 07:00 Eosinophils % 1.4 % (0.0-5.0) 02/05/18 07:00 Basophils % 0.0 % (0.0-2.0) 02/05/18 07:00 Neutrophils (Manual) 87 % (40-80) H 02/08/18 04:16 Lymphocytes 9 % (20-50) L 02/08/18 04:16 Monocytes 1 % (2-10) L 02/08/18 04:16 Eosinophils 2 % (0-5) 02/06/18 05:15 Basophils 0 % (0-3) 01/27/18 04:58 Platelet Estimate SLIGHT DECREASED (NORMAL) 02/08/18 04:16 Platelet Morphology NORMAL (NORMAL) 01/27/18 04:58 RBC Morph Micro Appear NORMAL (NORMAL) 01/27/18 04:58 Eos Smear Source URINE 01/28/18 17:10 Eos Smear Total Cells NONE SEEN (NONE SEEN) 01/28/18 17:10 PT 10.4 SECONDS (9.5-11.5) 02/07/18 05:21 INR 1.00 (0.5-1.4) 02/07/18 05:21 PTT (Actin FS) 28.4 SECONDS (26.0-38.0) 02/07/18 05:21 Specimen Source Arterial 01/24/18 17:45 Sample Site Left Radial 01/24/18 17:45 pH 7.41 (7.35-7.45) 01/24/18 17:45 pCO2 32.0 mmHg (35.0-45.0) L 01/24/18 17:45 pO2 397.0 mmHg (80.0-100.0) H 01/24/18 17:45 HCO3 22.3 mEq/L (20.0-26.0) 01/24/18 17:45 Base Excess -3.5 mEq/L (-3.0-3.0) L 01/24/18 17:45 O2 Saturation 100.0 % (92.0-100.0) 01/24/18 17:45 Bebo Test YES 01/24/18 17:45 Vent Rate 14 01/24/18 17:45 Inspired O2 100 01/24/18 17:45 Tidal Volume 450 01/24/18 17:45 PEEP 5 01/24/18 17:45 Pressure (ins/psv/peep) NA 01/24/18 17:45 Critical Value E.BRIDGES 01/24/18 17:45 Sodium 128 mEq/L (136-145) L 02/08/18 04:16 Potassium 3.9 mEq/L (3.5-5.1) 02/08/18 04:16 Chloride 98 mEq/L (98-107) 02/08/18 04:16 Carbon Dioxide 22.6 mEq/L (21.0-31.0) 02/08/18 04:16 Anion Gap 11.3 (7.0-16.0) 02/08/18 04:16 BUN 46 mg/dL (7-25) H 02/08/18 04:16 Creatinine 1.5 mg/dL (0.6-1.2) H 02/08/18 04:16 Est GFR ( Amer) TNP 02/08/18 04:16 Est GFR (Non-Af Amer) TNP 02/08/18 04:16 BUN/Creatinine Ratio 30.7 02/08/18 04:16 Glucose 112 mg/dL (70-105) H 02/08/18 04:16 POC Glucose 78 MG/DL (70 - 105) 02/08/18 12:08 Hemoglobin A1c % 5.1 % (4.0-6.0) 01/20/18 12:15 Plasma/Ser Osmolality 287 mOsmol/kg (280-301) 01/28/18 17:45 Whole Bld Lactic Acid 1.50 mmol/L (0.60-1.99) 01/28/18 13:40 Uric Acid 5.3 mg/dL (2.3-6.6) 01/30/18 05:06 Calcium 7.8 mg/dL (8.6-10.3) L 02/08/18 04:16 Phosphorus 3.3 mg/dL (2.5-5.0) 01/30/18 05:06 Magnesium 2.3 mg/dL (1.9-2.7) 01/30/18 05:06 Iron 54 ug/dL (27-139) 01/20/18 12:50 TIBC 159 ug/dL (250-450) L 01/20/18 12:50 Iron Saturation 34 % (15-55) 01/20/18 12:50 Unsaturated IBC 105 ug/dL (118-369) L 01/20/18 12:50 Ferritin 1230 ng/mL (15-150) H 01/20/18 12:50 Total Bilirubin 1.7 mg/dL (0.3-1.0) H 02/05/18 05:15 Direct Bilirubin 0.07 mg/dL (0.0-0.2) 01/20/18 12:30 AST 200 U/L (13-39) H 02/05/18 05:15 ALT 43 U/L (7-52) 02/05/18 05:15 Alkaline Phosphatase 413 U/L (34-104) H 02/05/18 05:15 Troponin I 0.03 ng/mL (0.01-0.05) 01/20/18 12:15 C-Reactive Protein 4.3 mg/dL (0.0-0.9) H 01/20/18 12:50 B-Natriuretic Peptide 185.0 pg/mL (5.0-100.0) H 01/25/18 04:20 Total Protein 4.9 gm/dL (6.0-8.3) L 02/05/18 05:15 Albumin 3.6 gm/dL (3.7-5.3) L 02/05/18 05:15 Globulin 1.3 gm/dL 02/05/18 05:15 Albumin/Globulin Ratio 2.8 (1.0-1.8) H 02/05/18 05:15 Triglycerides 97 mg/dL (<150) 01/20/18 12:15 Cholesterol 195 mg/dL (<200) 01/20/18 12:15 LDL Cholesterol Direct 152 mg/dL (75-193) 01/20/18 12:15 HDL Cholesterol 40 mg/dL (23-92) 01/20/18 12:15 Lipase 108 U/L (11-82) H 01/20/18 12:15 Free T4 1.12 ng/dL (0.82-1.77) 01/20/18 12:50 TSH 0.06 uIU/ml (0.34-5.60) L 01/20/18 12:15 Urine Source [place] 01/28/18 17:10 Urine Color YELLOW 01/28/18 17:10 Urine Clarity CLOUDY (CLEAR) H 01/28/18 17:10 Urine pH 6.0 (4.6 - 8.0) 01/28/18 17:10 Ur Specific [place] 1.020 (1.005-1.030) 01/28/18 17:10 Urine Protein 100 mg/dL (NEGATIVE) H 01/28/18 17:10 Urine Glucose (UA) NEGATIVE mg/dL (NEGATIVE) 01/28/18 17:10 Urine Ketones NEGATIVE mg/dL (NEGATIVE) 01/28/18 17:10 Urine Blood MODERATE (NEGATIVE) H 01/28/18 17:10 Urine Nitrate NEGATIVE (NEGATIVE) 01/28/18 17:10 Urine Bilirubin NEGATIVE (NEGATIVE) 01/28/18 17:10 Urine Urobilinogen 0.2 E.U./dL (0.2 - 1.0) 01/28/18 17:10 Ur Leukocyte Esterase MODERATE (NEGATIVE) H 01/28/18 17:10 Urine RBC 5-10 /hpf (0-5) H 01/28/18 17:10 Urine WBC 10-25 /hpf (0-5) H 01/28/18 17:10 Ur Epithelial Cells OCCASIONAL /lpf (FEW) 01/28/18 17:10 Urine Bacteria OCCASIONAL /hpf (NONE SEEN) 01/28/18 17:10 Urine Yeast MANY /hpf (NONE SEEN) H 01/28/18 17:10 Ur Random Sodium 56 mmol/L 01/28/18 17:10 Urine Creatinine 39.0 mg/dl (28.0-217.0) 01/28/18 17:10 Stool Occult Blood NEGATIVE (NEGATIVE) 02/05/18 14:50 Vancomycin Trough 27.8 ug/mL (10-20) H 01/26/18 23:00 Random Vancomycin 22.6 ug/mL (5.0-40.0) 02/03/18 04:20 Blood Type O POSITIVE 02/03/18 16:58 Antibody Screen NEGATIVE 02/03/18 16:58 Crossmatch See Detail 02/03/18 16:58 - Physical Exam Vitals and I&O: Vital Signs Temp 96.2 F 02/08/18 08:00 Pulse 66 02/08/18 12:24 Resp 18 02/08/18 11:00 BP 93/48 02/08/18 11:56 Pulse Ox 100 02/08/18 11:00 Intake & Output 02/07/18 02/08/18 02/08/18 18:59 06:59 18:59 Intake Total 100 150 Output Total 200 Balance 100 -50 Weight (lbs) 54.034 kg Intake: Intake, IV Amount 100 100 Meropenem 1 gm In Sodium 100 100 Chloride 0.9% 100 ml @ 100 mls/hr IV Q12H [facility] Rx #:[id number] Other 50 Output: Urine 200 Other: # Bowel Movements 1 Weight Source Bedscale Active Medications: Current Medications Acetaminophen (Tylenol) 650 mg PO Q4H PRN PRN Reason: MILD PAIN OR TEMP >100.4 Stop: 03/21/18 16:07 Al Hydrox/Mg Hydrox/Simethicone (Maalox) 30 ml PO Q6HR PRN PRN Reason: GI DISTRESS Stop: 03/21/18 16:28 Albuterol/Ipratropium (Duoneb Neb) 3 ml HHN Q6HRT [facility] Stop: 03/30/18 00:59 Last Admin: 02/08/18 06:37 Dose: 3 ml Amlodipine Besylate (Norvasc) 10 mg PO DAILY [facility] Stop: 04/02/18 16:59 Last Admin: 02/08/18 09:37 Dose: 10 mg Artificial Tears (Artificial Tears Ophth Soln) 1 drop EACH EYE Q2HR PRN PRN Reason: Dry Eye Stop: 03/27/18 09:28 Last Admin: 02/05/18 09:06 Dose: 1 drop Atorvastatin Calcium (Lipitor) 80 mg PO HS [facility] PRN Reason: Protocol Stop: 03/21/18 20:59 Last Admin: 02/06/18 20:45 Dose: 80 mg Bisacodyl (Dulcolax 10 Mg Supp) 10 mg RC DAILY PRN PRN Reason: Constipation Stop: 03/21/18 16:07 Budesonide (Pulmicort) 0.5 mg HHN BIDRT [facility] Stop: 04/01/18 18:59 Last Admin: 02/08/18 06:37 Dose: 0.5 mg Carvedilol (Coreg) 12.5 mg PO BID [facility] Stop: 03/21/18 16:59 Last Admin: 02/08/18 09:38 Dose: 12.5 mg Chlorhexidine Gluconate (Peridex) 15 ml MM 0800,2000 [facility] Stop: 03/27/18 07:59 Last Admin: 02/08/18 08:30 Dose: 15 ml Dextrose (D50w) 50 ml IVP PRN PRN PRN Reason: HYPOGLYCEMIA Stop: 03/21/18 16:07 Diltiazem HCl (Cardizem) 60 mg PO Q6HR [facility] Stop: 03/21/18 17:59 Last Admin: 02/08/18 12:24 Dose: Not Given Enalaprilat (Vasotec) 2.5 mg IVP Q6HR PRN PRN Reason: SBP ABOVE 160 Stop: 03/25/18 11:59 Last Admin: 02/07/18 13:53 Dose: 2.5 mg Glucagon (Glucagen) 1 mg IVP PRN PRN PRN Reason: HYPOGLYCEMIA Stop: 03/21/18 16:25 Meropenem 1 gm/ Sodium (Chloride) 100 mls @ 100 mls/hr IV Q12H [facility] Stop: 03/26/18 08:59 Last Admin: 02/08/18 08:50 Dose: 100 mls/hr Phenylephrine HCl 10 mg/ (Sodium Chloride) 250 mls @ 75 mls/hr IV TITR [facility]; 50 MCG/MIN PRN Reason: Protocol Stop: 03/25/18 20:14 Norepinephrine Bitartrate 4 mg (/ Sodium Chloride) 254 mls @ 15.24 mls/hr IV TITR [facility]; 4 MCG/MIN PRN Reason: Protocol Stop: 03/26/18 08:14 Last Titration: 02/06/18 18:30 Dose: 0 mcg/min, 0 mls/hr Dextrose (D5w) 1,000 mls @ 50 mls/hr IV .Q20H [facility] Stop: 04/07/18 14:14 Last Admin: 02/07/18 00:00 Dose: 50 mls/hr Furosemide 100 mg/ Sodium (Chloride) 100 mls @ 5 mls/hr IV TITR [facility] Stop: 04/08/18 13:29 Last Admin: 02/08/18 11:56 Dose: 5 mls/hr Insulin Aspart (Novolog Insulin Sliding Scale) 0 units SUBQ Q6HR [facility] PRN Reason: Protocol Stop: 03/27/18 00:00 Last Admin: 02/08/18 12:25 Dose: Not Given Losartan Potassium (Cozaar) 100 mg PO DAILY [facility] Stop: 04/02/18 16:59 Last Admin: 02/08/18 09:38 Dose: Not Given Magnesium Hydroxide (Milk Of Magnesia) 30 ml PO DAILY PRN PRN Reason: IF NO BM IN TWO DAYS Stop: 03/21/18 16:07 Metoprolol Tartrate (Lopressor) 5 mg IV Q4H PRN PRN Reason: Tachycardia Stop: 03/25/18 12:29 Morphine Sulfate (Morphine) 1 mg IV Q4HR PRN PRN Reason: MOD TO SEVERE PAIN Stop: 04/02/18 15:59 Last Admin: 02/05/18 01:29 Dose: 1 mg Multivitamins/Vitamin C (Theragran) 1 tab PO DAILY [facility] Stop: 03/22/18 08:59 Last Admin: 02/08/18 09:37 Dose: 1 tab Ondansetron HCl (Zofran Odt) 4 mg PO Q6H PRN PRN Reason: Nausea / Vomiting Stop: 03/21/18 16:07 Pantoprazole Sodium (Protonix) 40 mg NG DAILY [facility] Stop: 03/28/18 16:59 Last Admin: 02/08/18 09:37 Dose: 40 mg Prednisone (Deltasone) 10 mg PO DAILY [facility] Stop: 03/22/18 08:59 Last Admin: 02/08/18 09:38 Dose: 10 mg Sodium Phosphate (Fleet Enema) 135 ml RC DAILY PRN PRN Reason: Constipation Stop: 03/21/18 16:07 Vitamin A (Vitamin A & D) 5 gm TP DAILY [facility] Stop: 03/22/18 08:59 Last Admin: 02/08/18 09:37 Dose: 5 gm General: Mild distress HEENT: Atraumatic, Mucous membr. moist/pink, Other (facial edema, trach) Neck: Supple, +2 carotid pulse wo bruit Cardiovascular: Regular rate, Normal S1, Normal S2 Lungs: Other (decreased BS, coarse rhonchi) Abdomen: Bowel sounds, Soft Extremities: Edema, Other (less edema) Neurological: Sensation intact Skin: no Rash Psych/Mental Status: Other (obtunded) - Procedures Procedures: Procedures Procedure Code Date BYPASS TRACHEA TO CUTANEOUS WITH TRACH DEV, OPEN APPROACH [id number] 01/20/[address] GASTROSTOMY TUBE 38213 01/20/18 INCISION OF WINDPIPE 47575 01/20/18 INSERT EMERGENCY AIRWAY [id number] 01/20/18 INSERTION OF ENDOTRACHEAL AIRWAY INTO TRACHEA, VIA OPENING [id number] 01/20/18 INSERTION OF FEEDING DEVICE INTO STOMACH, PERC APPROACH [id number] 01/20/18 RESPIRATORY VENTILATION, GREATER THAN 96 CONSECUTIVE HOURS [id number] 01/20/18 VENT MGMT INPAT INIT DAY 95658 01/20/18 Assessment/Plan - Problem List Patient Problems: All Active Problems Dementia (Acute) F03.90 ELEVATED WBC, LUNG INFILTRATES (Acute) Leukocytosis (Acute) D72.829 Pneumonia (Acute) J18.9 - Assessment Assessment: LAURENCE Anuric 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 A. Fib Anemia of acute on CD non Gap met acid yeast UTI Anasarca - Plan Plan: Lab - Result Diagrams 01/29/18 05:10 01/29/18 05:10 Current Medications Acetaminophen (Tylenol) 650 mg PO Q4H PRN PRN Reason: MILD PAIN OR TEMP >100.4 Stop: 03/21/18 16:07 Al Hydrox/Mg Hydrox/Simethicone (Maalox) 30 ml PO Q6HR PRN PRN Reason: GI DISTRESS Stop: 03/21/18 16:28 Albuterol/Ipratropium (Duoneb Neb) 3 ml HHN Q6HRT [facility] Stop: 03/30/18 00:59 Last Admin: 01/29/18 13:21 Dose: 3 ml Artificial Tears (Artificial Tears Ophth Soln) 1 drop EACH EYE Q2HR PRN PRN Reason: Dry Eye Stop: 03/27/18 09:28 Last Admin: 01/26/18 10:13 Dose: 1 drop Atorvastatin Calcium (Lipitor) 80 mg PO HS [facility] PRN Reason: Protocol Stop: 03/21/18 20:59 Last Admin: 01/28/18 20:32 Dose: 80 mg Bisacodyl (Dulcolax 10 Mg Supp) 10 mg RC DAILY PRN PRN Reason: Constipation Stop: 03/21/18 16:07 Carvedilol (Coreg) 12.5 mg PO BID [facility] Stop: 03/21/18 16:59 Last Admin: 01/29/18 08:10 Dose: 12.5 mg Chlorhexidine Gluconate (Peridex) 15 ml MM 0800,2000 [facility] Stop: 03/27/18 07:59 Last Admin: 01/29/18 08:00 Dose: 15 ml Dextrose (D50w) 50 ml IVP PRN PRN PRN Reason: HYPOGLYCEMIA Stop: 03/21/18 16:07 Diltiazem HCl (Cardizem) 60 mg PO Q6HR [facility] Stop: 03/21/18 17:59 Last Admin: 01/29/18 12:10 Dose: 60 mg Enalaprilat (Vasotec) 2.5 mg IVP Q6HR PRN PRN Reason: SBP ABOVE 160 Stop: 03/25/18 11:59 Last Admin: 01/24/18 15:13 Dose: 2.5 mg Glucagon (Glucagen) 1 mg IVP PRN PRN PRN Reason: HYPOGLYCEMIA Stop: 03/21/18 16:25 Meropenem 1 gm/ Sodium (Chloride) 100 mls @ 100 mls/hr IV Q12H [facility] Stop: 03/26/18 08:59 Last Infusion: 01/29/18 10:30 Dose: Infused Phenylephrine HCl 10 mg/ (Sodium Chloride) 250 mls @ 75 mls/hr IV TITR [facility]; 50 MCG/MIN PRN Reason: Protocol Stop: 03/25/18 20:14 Norepinephrine Bitartrate 4 mg (/ Sodium Chloride) 254 mls @ 15.24 mls/hr IV TITR [facility]; 4 MCG/MIN PRN Reason: Protocol Stop: 03/26/18 08:14 Last Titration: 01/27/18 00:22 Dose: 0 mcg/min, 0 mls/hr Potassium Chloride/Dextrose/Sod Cl (D5-0.9ns W/Kcl 20meq) 1,000 mls @ 75 mls/ hr IV .[id number] [facility] Stop: 03/28/18 14:06 Last Admin: 01/29/18 12:54 Dose: 125 mls/hr Insulin Aspart (Novolog Insulin Sliding Scale) 0 units SUBQ Q6HR [facility] PRN Reason: Protocol Stop: 03/27/18 00:00 Last Admin: 01/29/18 12:09 Dose: 2 units Magnesium Hydroxide (Milk Of Magnesia) 30 ml PO DAILY PRN PRN Reason: IF NO BM IN TWO DAYS Stop: 03/21/18 16:07 Megestrol Acetate (Megace) 400 mg PO BID [facility] Stop: 03/21/18 16:59 Last Admin: 01/29/18 08:10 Dose: 400 mg Metoprolol Tartrate (Lopressor) 5 mg IV Q4H PRN PRN Reason: Tachycardia Stop: 03/25/18 12:29 Miscellaneous (Vancomycin Iv Per Pharmacy) 1 ea MC PRN [facility] Stop: 03/25/18 17:59 Multivitamins/Vitamin C (Theragran) 1 tab PO DAILY [facility] Stop: 03/22/18 08:59 Last Admin: 01/29/18 08:10 Dose: 1 tab Ondansetron HCl (Zofran Odt) 4 mg PO Q6H PRN PRN Reason: Nausea / Vomiting Stop: 03/21/18 16:07 Pantoprazole Sodium (Protonix) 40 mg NG DAILY [facility] Stop: 03/28/18 16:59 Last Admin: 01/29/18 08:10 Dose: 40 mg Prednisone (Deltasone) 10 mg PO DAILY [facility] Stop: 03/22/18 08:59 Last Admin: 01/29/18 08:10 Dose: 10 mg Sodium Bicarbonate (Sodium Bicarbonate) 650 mg PO BID [facility] PRN Reason: Protocol Stop: 03/29/18 16:59 Last Admin: 01/29/18 08:10 Dose: 650 mg Sodium Phosphate (Fleet Enema) 135 ml RC DAILY PRN PRN Reason: Constipation Stop: 03/21/18 16:07 Vitamin A (Vitamin A & D) 5 gm TP DAILY [facility] Stop: 03/22/18 08:59 Last Admin: 01/29/18 12:14 Dose: 5 Lab - Result Diagrams 02/08/18 04:16 02/08/18 04:16 kidney fnc deteriorated to 46/1.5 still w/facial/peripheral edema replace Ca, P04, Mg start Diflucan on top of Meropenem new [place] placed today WBC up to 24.6 Hgb/Hct up to 14.3/41 CXR still w/ b/l small effusion, infiltrates hold dialysis for now & monitor ordered Lasix drip yesterday but only started 2 hrs ago f/u electrolytes, cbc Nutritional Asmnt/Malnutr-PDOC - Dietary Evaluation Malnutrition Findings (Please click <Entered> for more info): Nutritional Asmnt/Malnutrition Start: 01/21/18 16: 32 Text: Status: Complete Freq: Document 01/21/18 16:32 [id number] (Rec: 01/21/18 16:48 [id number] Nutritional Asmnt/Malnutrition Patient General Information Nutritional Screening High Risk Consult Diagnosis left lung infiltrate Pertinent Medical Hx/Surgical Hx dementia, HTN, hyperlipidemia per ER notes, no H&P at this time Subjective Information Pt seen sleeping at time of visit, not able to wake up for lunch. Per [employer] SUPPORT [employer]IST, pt only had cereal and scrambled eggs this morning, not able to chew the [place] toast d/t weakness. Current Diet Order/ Nutrition Support low cholesterol 300gm Pertinent Medications D5-0.45ns, novolog, megace, theragran, piperacillin, vit A &D Pertinent Labs 01/21 BUN 32, Glucose 180, POC 142-261 01/20 A1c 5.1, POC 127-165 Nutritional Hx/Data Height 1.6 m Height (Calculated Centimeters) 160.0 Current Weight (lbs) 37.648 kg Weight (Calculated Kilograms) 37.6 Weight (Calculated Grams) 63295.2 [place] Body Weight 115 Body Mass Index (BMI) 14.7 Weight Status Underweight GI Symptoms GI Symptoms None Last BM none Difficult in: None Skin Integrity/Comment: reddened to vagina and coccyx Current %PO Poor (25-49%) Estimated Nutritional Goals Calories/Kcals/Kg 25-30 Kcals Calculated 4864-9131 Protein g/k Protein Calculated 52 Fluid: ml 1300-1560ml (1ml/kcal) Nutritional Problem 2. Problem Problem chewing difficulty Etiology weakness, sleepy Signs/Symptoms: pt need for mech soft diet 1. Problem Problem altered nutrition related lab values Etiology hyperglycemia Signs/Symptoms: Glucose 180, POC 127-261 Intervention/Recommendation Comments 1. Recommend Mech soft ground diet with Boost BID to increase nutrition intake. 2. Monitor PO intake, wt, labs and skin integrity 3. F/U as high risk in 2-3 days, 01/23-01/24 Expected Outcomes/Goals Expected Outcomes/Goals 1. PO intake to meet at least 75% of nutritional needs. 2. Wt stability, skin to remain intact, labs to approach WNL.
--- NOTE | 2018-02-08 13:22 | Internal Medicine Prog Note ---
Internal Medicine Subjective - Subjective Service Date: 02/08/18 Patient seen and examined:: with staff Patient is:: awake Per staff patient has:: tolerating meds Internal Medicine Objective - Results Result Diagrams: 02/08/18 04:16 02/08/18 04:16 Recent Labs: Laboratory Last Values WBC 24.6 Th/cmm (4.8-10.8) H* D 02/08/18 04:16 RBC 4.51 Mil/cmm (3.80-5.20) 02/08/18 04:16 Hgb 14.3 gm/dL (12-16) 02/08/18 04:16 Hct 41.0 % (41.0-60) 02/08/18 04:16 MCV 90.9 fl (81-100) 02/08/18 04:16 MCH 31.7 pg (27.0-31.0) H 02/08/18 04:16 MCHC Differential 34.9 pg (28.0-36.0) 02/08/18 04:16 RDW 17.0 % (11.5-20.0) 02/08/18 04:16 Plt Count 82 Th/cmm (150-400) L 02/08/18 04:16 MPV 9.1 fl 02/08/18 04:16 Neutrophils % 87.3 % (40.0-80.0) H 02/05/18 07:00 Band Neutrophils % 3 % (0-10) 02/08/18 04:16 Lymphocytes % 7.0 % (20.0-50.0) L 02/05/18 07:00 Monocytes % 4.3 % (2.0-10.0) 02/05/18 07:00 Eosinophils % 1.4 % (0.0-5.0) 02/05/18 07:00 Basophils % 0.0 % (0.0-2.0) 02/05/18 07:00 Neutrophils (Manual) 87 % (40-80) H 02/08/18 04:16 Lymphocytes 9 % (20-50) L 02/08/18 04:16 Monocytes 1 % (2-10) L 02/08/18 04:16 Eosinophils 2 % (0-5) 02/06/18 05:15 Basophils 0 % (0-3) 01/27/18 04:58 Platelet Estimate SLIGHT DECREASED (NORMAL) 02/08/18 04:16 Platelet Morphology NORMAL (NORMAL) 01/27/18 04:58 RBC Morph Micro Appear NORMAL (NORMAL) 01/27/18 04:58 Eos Smear Source URINE 01/28/18 17:10 Eos Smear Total Cells NONE SEEN (NONE SEEN) 01/28/18 17:10 PT 10.4 SECONDS (9.5-11.5) 02/07/18 05:21 INR 1.00 (0.5-1.4) 02/07/18 05:21 PTT (Actin FS) 28.4 SECONDS (26.0-38.0) 02/07/18 05:21 Specimen Source Arterial 01/24/18 17:45 Sample Site Left Radial 01/24/18 17:45 pH 7.41 (7.35-7.45) 01/24/18 17:45 pCO2 32.0 mmHg (35.0-45.0) L 01/24/18 17:45 pO2 397.0 mmHg (80.0-100.0) H 01/24/18 17:45 HCO3 22.3 mEq/L (20.0-26.0) 01/24/18 17:45 Base Excess -3.5 mEq/L (-3.0-3.0) L 01/24/18 17:45 O2 Saturation 100.0 % (92.0-100.0) 01/24/18 17:45 Bebo Test YES 01/24/18 17:45 Vent Rate 14 01/24/18 17:45 Inspired O2 100 01/24/18 17:45 Tidal Volume 450 01/24/18 17:45 PEEP 5 01/24/18 17:45 Pressure (ins/psv/peep) NA 01/24/18 17:45 Critical Value E.BRIDGES 01/24/18 17:45 Sodium 128 mEq/L (136-145) L 02/08/18 04:16 Potassium 3.9 mEq/L (3.5-5.1) 02/08/18 04:16 Chloride 98 mEq/L (98-107) 02/08/18 04:16 Carbon Dioxide 22.6 mEq/L (21.0-31.0) 02/08/18 04:16 Anion Gap 11.3 (7.0-16.0) 02/08/18 04:16 BUN 46 mg/dL (7-25) H 02/08/18 04:16 Creatinine 1.5 mg/dL (0.6-1.2) H 02/08/18 04:16 Est GFR ( Amer) TNP 02/08/18 04:16 Est GFR (Non-Af Amer) TNP 02/08/18 04:16 BUN/Creatinine Ratio 30.7 02/08/18 04:16 Glucose 112 mg/dL (70-105) H 02/08/18 04:16 POC Glucose 78 MG/DL (70 - 105) 02/08/18 12:08 Hemoglobin A1c % 5.1 % (4.0-6.0) 01/20/18 12:15 Plasma/Ser Osmolality 287 mOsmol/kg (280-301) 01/28/18 17:45 Whole Bld Lactic Acid 1.50 mmol/L (0.60-1.99) 01/28/18 13:40 Uric Acid 5.3 mg/dL (2.3-6.6) 01/30/18 05:06 Calcium 7.8 mg/dL (8.6-10.3) L 02/08/18 04:16 Phosphorus 3.3 mg/dL (2.5-5.0) 01/30/18 05:06 Magnesium 2.3 mg/dL (1.9-2.7) 01/30/18 05:06 Iron 54 ug/dL (27-139) 01/20/18 12:50 TIBC 159 ug/dL (250-450) L 01/20/18 12:50 Iron Saturation 34 % (15-55) 01/20/18 12:50 Unsaturated IBC 105 ug/dL (118-369) L 01/20/18 12:50 Ferritin 1230 ng/mL (15-150) H 01/20/18 12:50 Total Bilirubin 1.7 mg/dL (0.3-1.0) H 02/05/18 05:15 Direct Bilirubin 0.07 mg/dL (0.0-0.2) 01/20/18 12:30 AST 200 U/L (13-39) H 02/05/18 05:15 ALT 43 U/L (7-52) 02/05/18 05:15 Alkaline Phosphatase 413 U/L (34-104) H 02/05/18 05:15 Troponin I 0.03 ng/mL (0.01-0.05) 01/20/18 12:15 C-Reactive Protein 4.3 mg/dL (0.0-0.9) H 01/20/18 12:50 B-Natriuretic Peptide 185.0 pg/mL (5.0-100.0) H 01/25/18 04:20 Total Protein 4.9 gm/dL (6.0-8.3) L 02/05/18 05:15 Albumin 3.6 gm/dL (3.7-5.3) L 02/05/18 05:15 Globulin 1.3 gm/dL 02/05/18 05:15 Albumin/Globulin Ratio 2.8 (1.0-1.8) H 02/05/18 05:15 Triglycerides 97 mg/dL (<150) 01/20/18 12:15 Cholesterol 195 mg/dL (<200) 01/20/18 12:15 LDL Cholesterol Direct 152 mg/dL (75-193) 01/20/18 12:15 HDL Cholesterol 40 mg/dL (23-92) 01/20/18 12:15 Lipase 108 U/L (11-82) H 01/20/18 12:15 Free T4 1.12 ng/dL (0.82-1.77) 01/20/18 12:50 TSH 0.06 uIU/ml (0.34-5.60) L 01/20/18 12:15 Urine Source [place] 01/28/18 17:10 Urine Color YELLOW 01/28/18 17:10 Urine Clarity CLOUDY (CLEAR) H 01/28/18 17:10 Urine pH 6.0 (4.6 - 8.0) 01/28/18 17:10 Ur Specific [place] 1.020 (1.005-1.030) 01/28/18 17:10 Urine Protein 100 mg/dL (NEGATIVE) H 01/28/18 17:10 Urine Glucose (UA) NEGATIVE mg/dL (NEGATIVE) 01/28/18 17:10 Urine Ketones NEGATIVE mg/dL (NEGATIVE) 01/28/18 17:10 Urine Blood MODERATE (NEGATIVE) H 01/28/18 17:10 Urine Nitrate NEGATIVE (NEGATIVE) 01/28/18 17:10 Urine Bilirubin NEGATIVE (NEGATIVE) 01/28/18 17:10 Urine Urobilinogen 0.2 E.U./dL (0.2 - 1.0) 01/28/18 17:10 Ur Leukocyte Esterase MODERATE (NEGATIVE) H 01/28/18 17:10 Urine RBC 5-10 /hpf (0-5) H 01/28/18 17:10 Urine WBC 10-25 /hpf (0-5) H 01/28/18 17:10 Ur Epithelial Cells OCCASIONAL /lpf (FEW) 01/28/18 17:10 Urine Bacteria OCCASIONAL /hpf (NONE SEEN) 01/28/18 17:10 Urine Yeast MANY /hpf (NONE SEEN) H 01/28/18 17:10 Ur Random Sodium 56 mmol/L 01/28/18 17:10 Urine Creatinine 39.0 mg/dl (28.0-217.0) 01/28/18 17:10 Stool Occult Blood NEGATIVE (NEGATIVE) 02/05/18 14:50 Vancomycin Trough 27.8 ug/mL (10-20) H 01/26/18 23:00 Random Vancomycin 22.6 ug/mL (5.0-40.0) 02/03/18 04:20 Blood Type O POSITIVE 02/03/18 16:58 Antibody Screen NEGATIVE 02/03/18 16:58 Crossmatch See Detail 02/03/18 16:58 - Physical Exam Vitals and I&O: Vital Signs Temp 96.2 F 02/08/18 08:00 Pulse 66 02/08/18 12:24 Resp 18 02/08/18 11:00 BP 93/48 02/08/18 11:56 Pulse Ox 100 02/08/18 11:00 Intake & Output 02/07/18 02/08/18 02/08/18 18:59 06:59 18:59 Intake Total 100 150 Output Total 200 Balance 100 -50 Weight (lbs) 119 lb 2 oz Intake: Intake, IV Amount 100 100 Meropenem 1 gm In Sodium 100 100 Chloride 0.9% 100 ml @ 100 mls/hr IV Q12H [facility] Rx #:[id number] Other 50 Output: Urine 200 Other: # Bowel Movements 1 Weight Source Bedscale Active Medications: Current Medications Acetaminophen (Tylenol) 650 mg PO Q4H PRN PRN Reason: MILD PAIN OR TEMP >100.4 Stop: 03/21/18 16:07 Al Hydrox/Mg Hydrox/Simethicone (Maalox) 30 ml PO Q6HR PRN PRN Reason: GI DISTRESS Stop: 03/21/18 16:28 Albuterol/Ipratropium (Duoneb Neb) 3 ml HHN Q6HRT [facility] Stop: 03/30/18 00:59 Last Admin: 02/08/18 06:37 Dose: 3 ml Amlodipine Besylate (Norvasc) 10 mg PO DAILY [facility] Stop: 04/02/18 16:59 Last Admin: 02/08/18 09:37 Dose: 10 mg Artificial Tears (Artificial Tears Ophth Soln) 1 drop EACH EYE Q2HR PRN PRN Reason: Dry Eye Stop: 03/27/18 09:28 Last Admin: 02/05/18 09:06 Dose: 1 drop Atorvastatin Calcium (Lipitor) 80 mg PO HS [facility] PRN Reason: Protocol Stop: 03/21/18 20:59 Last Admin: 02/06/18 20:45 Dose: 80 mg Bisacodyl (Dulcolax 10 Mg Supp) 10 mg RC DAILY PRN PRN Reason: Constipation Stop: 03/21/18 16:07 Budesonide (Pulmicort) 0.5 mg HHN BIDRT [facility] Stop: 04/01/18 18:59 Last Admin: 02/08/18 06:37 Dose: 0.5 mg Carvedilol (Coreg) 12.5 mg PO BID [facility] Stop: 03/21/18 16:59 Last Admin: 02/08/18 09:38 Dose: 12.5 mg Chlorhexidine Gluconate (Peridex) 15 ml MM 0800,2000 [facility] Stop: 03/27/18 07:59 Last Admin: 02/08/18 08:30 Dose: 15 ml Dextrose (D50w) 50 ml IVP PRN PRN PRN Reason: HYPOGLYCEMIA Stop: 03/21/18 16:07 Diltiazem HCl (Cardizem) 60 mg PO Q6HR [facility] Stop: 03/21/18 17:59 Last Admin: 02/08/18 12:24 Dose: Not Given Enalaprilat (Vasotec) 2.5 mg IVP Q6HR PRN PRN Reason: SBP ABOVE 160 Stop: 03/25/18 11:59 Last Admin: 02/07/18 13:53 Dose: 2.5 mg Glucagon (Glucagen) 1 mg IVP PRN PRN PRN Reason: HYPOGLYCEMIA Stop: 03/21/18 16:25 Meropenem 1 gm/ Sodium (Chloride) 100 mls @ 100 mls/hr IV Q12H [facility] Stop: 03/26/18 08:59 Last Admin: 02/08/18 08:50 Dose: 100 mls/hr Phenylephrine HCl 10 mg/ (Sodium Chloride) 250 mls @ 75 mls/hr IV TITR [facility]; 50 MCG/MIN PRN Reason: Protocol Stop: 03/25/18 20:14 Norepinephrine Bitartrate 4 mg (/ Sodium Chloride) 254 mls @ 15.24 mls/hr IV TITR [facility]; 4 MCG/MIN PRN Reason: Protocol Stop: 03/26/18 08:14 Last Titration: 02/06/18 18:30 Dose: 0 mcg/min, 0 mls/hr Dextrose (D5w) 1,000 mls @ 50 mls/hr IV .Q20H [facility] Stop: 04/07/18 14:14 Last Admin: 02/07/18 00:00 Dose: 50 mls/hr Furosemide 100 mg/ Sodium (Chloride) 100 mls @ 5 mls/hr IV TITR [facility] Stop: 04/08/18 13:29 Last Admin: 02/08/18 11:56 Dose: 5 mls/hr Insulin Aspart (Novolog Insulin Sliding Scale) 0 units SUBQ Q6HR [facility] PRN Reason: Protocol Stop: 03/27/18 00:00 Last Admin: 02/08/18 12:25 Dose: Not Given Losartan Potassium (Cozaar) 100 mg PO DAILY [facility] Stop: 04/02/18 16:59 Last Admin: 02/08/18 09:38 Dose: Not Given Magnesium Hydroxide (Milk Of Magnesia) 30 ml PO DAILY PRN PRN Reason: IF NO BM IN TWO DAYS Stop: 03/21/18 16:07 Metoprolol Tartrate (Lopressor) 5 mg IV Q4H PRN PRN Reason: Tachycardia Stop: 03/25/18 12:29 Morphine Sulfate (Morphine) 1 mg IV Q4HR PRN PRN Reason: MOD TO SEVERE PAIN Stop: 04/02/18 15:59 Last Admin: 02/05/18 01:29 Dose: 1 mg Multivitamins/Vitamin C (Theragran) 1 tab PO DAILY [facility] Stop: 03/22/18 08:59 Last Admin: 02/08/18 09:37 Dose: 1 tab Ondansetron HCl (Zofran Odt) 4 mg PO Q6H PRN PRN Reason: Nausea / Vomiting Stop: 03/21/18 16:07 Pantoprazole Sodium (Protonix) 40 mg NG DAILY [facility] Stop: 03/28/18 16:59 Last Admin: 02/08/18 09:37 Dose: 40 mg Prednisone (Deltasone) 10 mg PO DAILY [facility] Stop: 03/22/18 08:59 Last Admin: 02/08/18 09:38 Dose: 10 mg Sodium Phosphate (Fleet Enema) 135 ml RC DAILY PRN PRN Reason: Constipation Stop: 03/21/18 16:07 Vitamin A (Vitamin A & D) 5 gm TP DAILY [facility] Stop: 03/22/18 08:59 Last Admin: 02/08/18 09:37 Dose: 5 gm General: weak, alert HEENT: NC/AT, PERRLA Neck: Supple Lungs: CTAB Cardiovascular: RRR, Normal S1, Normal S2, without murmur Abdomen: soft, non-tender, non-distended, positive bowel sound - Procedures Procedures: Procedures Procedure Code Date BYPASS TRACHEA TO CUTANEOUS WITH TRACH DEV, OPEN APPROACH [id number] 01/20/[address] GASTROSTOMY TUBE 82122 01/20/18 INCISION OF WINDP[place] 52312 01/20/18 INSERT EMERGENCY AIRWAY 23858 01/20/18 INSERTION OF ENDOTRACHEAL AIRWAY INTO TRACHEA, VIA OPENING [id number] 01/20/18 INSERTION OF FEEDING DEVICE INTO STOMACH, PERC APPROACH [id number] 01/20/18 RESPIRATORY VENTILATION, GREATER THAN 96 CONSECUTIVE HOURS [id number] 01/20/18 VENT MGMT INPAT INIT DAY 46353 01/20/18 Internal Medicine Assmt/Plan - Assessment Assessment: Current Active Problems Problem Status Onset ELEVATED WBC, LUNG INFILTRATES Acute Leukocytosis Pneumonia Dementia - Plan Plan: Ivantibiotics as per ID continue vent support follow up labs in am continue current orders Nutritional Asmnt/Malnutr-PDOC - Dietary Evaluation Malnutrition Findings (Please click <Entered> for more info): Nutritional Asmnt/Malnutrition Start: 01/21/18 16: 32 Text: Status: Complete Freq: Document 01/21/18 16:32 LCHENG (Rec: 01/21/18 16:48 [email or web address]) Nutritional Asmnt/Malnutrition Patient General Information Nutritional Screening High Risk Consult Diagnosis left lung infiltrate Pertinent Medical Hx/Surgical Hx dementia, HTN, hyperlipidemia per ER notes, no H&P at this time Subjective Information Pt seen sleeping at time of visit, not able to wake up for lunch. Per [employer], pt only had cereal and scrambled eggs this morning, not able to chew the [place] toast d/t weakness. Current Diet Order/ Nutrition Support low cholesterol 300gm Pertinent Medications D5-0.45ns, novolog, megace, theragran, piperacillin, vit A &D Pertinent Labs 01/21 BUN 32, Glucose 180, POC 142-261 01/20 A1c 5.1, POC 127-165 Nutritional Hx/Data Height 5 ft 3 in Height (Calculated Centimeters) 160.0 Current Weight (lbs) 83 lb Weight (Calculated Kilograms) 37.6 Weight (Calculated Grams) 30309.2 [place] Body Weight 115 Body Mass Index (BMI) 14.7 Weight Status Underweight GI Symptoms GI Symptoms None Last BM none Difficult in: None Skin Integrity/Comment: reddened to vagina and coccyx Current %PO Poor (25-49%) Estimated Nutritional Goals Calories/Kcals/Kg 25-30 Kcals Calculated 0842-7610 Protein g/k Protein Calculated 52 Fluid: ml 1300-1560ml (1ml/kcal) Nutritional Problem 2. Problem Problem chewing difficulty Etiology weakness, sleepy Signs/Symptoms: pt need for mech soft diet 1. Problem Problem altered nutrition related lab values Etiology hyperglycemia Signs/Symptoms: Glucose 180, POC 127-261 Intervention/Recommendation Comments 1. Recommend Mech soft ground diet with Boost BID to increase nutrition intake. 2. Monitor PO intake, wt, labs and skin integrity 3. F/U as high risk in 2-3 days, 01/23-01/24 Expected Outcomes/Goals Expected Outcomes/Goals 1. PO intake to meet at least 75% of nutritional needs. 2. Wt stability, skin to remain intact, labs to approach WNL.
--- NOTE | 2018-02-08 14:16 | Infectious Disease Prog Note ---
Infectious Disease Subjective - Review of Systems Service Date: 02/08/18 Subjective: No fever, remains intubated orally. on the ventilator support. Infectious Disease Objective - Results Result Diagrams: 02/08/18 04:16 02/08/18 04:16 Recent Labs: Laboratory Last Values WBC 24.6 Th/cmm (4.8-10.8) H* D 02/08/18 04:16 RBC 4.51 Mil/cmm (3.80-5.20) 02/08/18 04:16 Hgb 14.3 gm/dL (12-16) 02/08/18 04:16 Hct 41.0 % (41.0-60) 02/08/18 04:16 MCV 90.9 fl (81-100) 02/08/18 04:16 MCH 31.7 pg (27.0-31.0) H 02/08/18 04:16 MCHC Differential 34.9 pg (28.0-36.0) 02/08/18 04:16 RDW 17.0 % (11.5-20.0) 02/08/18 04:16 Plt Count 82 Th/cmm (150-400) L 02/08/18 04:16 MPV 9.1 fl 02/08/18 04:16 Neutrophils % 87.3 % (40.0-80.0) H 02/05/18 07:00 Band Neutrophils % 3 % (0-10) 02/08/18 04:16 Lymphocytes % 7.0 % (20.0-50.0) L 02/05/18 07:00 Monocytes % 4.3 % (2.0-10.0) 02/05/18 07:00 Eosinophils % 1.4 % (0.0-5.0) 02/05/18 07:00 Basophils % 0.0 % (0.0-2.0) 02/05/18 07:00 Neutrophils (Manual) 87 % (40-80) H 02/08/18 04:16 Lymphocytes 9 % (20-50) L 02/08/18 04:16 Monocytes 1 % (2-10) L 02/08/18 04:16 Eosinophils 2 % (0-5) 02/06/18 05:15 Basophils 0 % (0-3) 01/27/18 04:58 Platelet Estimate SLIGHT DECREASED (NORMAL) 02/08/18 04:16 Platelet Morphology NORMAL (NORMAL) 01/27/18 04:58 RBC Morph Micro Appear NORMAL (NORMAL) 01/27/18 04:58 Eos Smear Source URINE 01/28/18 17:10 Eos Smear Total Cells NONE SEEN (NONE SEEN) 01/28/18 17:10 PT 10.4 SECONDS (9.5-11.5) 02/07/18 05:21 INR 1.00 (0.5-1.4) 02/07/18 05:21 PTT (Actin FS) 28.4 SECONDS (26.0-38.0) 02/07/18 05:21 Specimen Source Arterial 01/24/18 17:45 Sample Site Left Radial 01/24/18 17:45 pH 7.41 (7.35-7.45) 01/24/18 17:45 pCO2 32.0 mmHg (35.0-45.0) L 01/24/18 17:45 pO2 397.0 mmHg (80.0-100.0) H 01/24/18 17:45 HCO3 22.3 mEq/L (20.0-26.0) 01/24/18 17:45 Base Excess -3.5 mEq/L (-3.0-3.0) L 01/24/18 17:45 O2 Saturation 100.0 % (92.0-100.0) 01/24/18 17:45 Bebo Test YES 01/24/18 17:45 Vent Rate 14 01/24/18 17:45 Inspired O2 100 01/24/18 17:45 Tidal Volume 450 01/24/18 17:45 PEEP 5 01/24/18 17:45 Pressure (ins/psv/peep) NA 01/24/18 17:45 Critical Value E.BRIDGES 01/24/18 17:45 Sodium 128 mEq/L (136-145) L 02/08/18 04:16 Potassium 3.9 mEq/L (3.5-5.1) 02/08/18 04:16 Chloride 98 mEq/L (98-107) 02/08/18 04:16 Carbon Dioxide 22.6 mEq/L (21.0-31.0) 02/08/18 04:16 Anion Gap 11.3 (7.0-16.0) 02/08/18 04:16 BUN 46 mg/dL (7-25) H 02/08/18 04:16 Creatinine 1.5 mg/dL (0.6-1.2) H 02/08/18 04:16 Est GFR ( Amer) TNP 02/08/18 04:16 Est GFR (Non-Af Amer) TNP 02/08/18 04:16 BUN/Creatinine Ratio 30.7 02/08/18 04:16 Glucose 112 mg/dL (70-105) H 02/08/18 04:16 POC Glucose 78 MG/DL (70 - 105) 02/08/18 12:08 Hemoglobin A1c % 5.1 % (4.0-6.0) 01/20/18 12:15 Plasma/Ser Osmolality 287 mOsmol/kg (280-301) 01/28/18 17:45 Whole Bld Lactic Acid 1.50 mmol/L (0.60-1.99) 01/28/18 13:40 Uric Acid 5.3 mg/dL (2.3-6.6) 01/30/18 05:06 Calcium 7.8 mg/dL (8.6-10.3) L 02/08/18 04:16 Phosphorus 3.3 mg/dL (2.5-5.0) 01/30/18 05:06 Magnesium 2.3 mg/dL (1.9-2.7) 01/30/18 05:06 Iron 54 ug/dL (27-139) 01/20/18 12:50 TIBC 159 ug/dL (250-450) L 01/20/18 12:50 Iron Saturation 34 % (15-55) 01/20/18 12:50 Unsaturated IBC 105 ug/dL (118-369) L 01/20/18 12:50 Ferritin 1230 ng/mL (15-150) H 01/20/18 12:50 Total Bilirubin 1.7 mg/dL (0.3-1.0) H 02/05/18 05:15 Direct Bilirubin 0.07 mg/dL (0.0-0.2) 01/20/18 12:30 AST 200 U/L (13-39) H 02/05/18 05:15 ALT 43 U/L (7-52) 02/05/18 05:15 Alkaline Phosphatase 413 U/L (34-104) H 02/05/18 05:15 Troponin I 0.03 ng/mL (0.01-0.05) 01/20/18 12:15 C-Reactive Protein 4.3 mg/dL (0.0-0.9) H 01/20/18 12:50 B-Natriuretic Peptide 185.0 pg/mL (5.0-100.0) H 01/25/18 04:20 Total Protein 4.9 gm/dL (6.0-8.3) L 02/05/18 05:15 Albumin 3.6 gm/dL (3.7-5.3) L 02/05/18 05:15 Globulin 1.3 gm/dL 02/05/18 05:15 Albumin/Globulin Ratio 2.8 (1.0-1.8) H 02/05/18 05:15 Triglycerides 97 mg/dL (<150) 01/20/18 12:15 Cholesterol 195 mg/dL (<200) 01/20/18 12:15 LDL Cholesterol Direct 152 mg/dL (75-193) 01/20/18 12:15 HDL Cholesterol 40 mg/dL (23-92) 01/20/18 12:15 Lipase 108 U/L (11-82) H 01/20/18 12:15 Free T4 1.12 ng/dL (0.82-1.77) 01/20/18 12:50 TSH 0.06 uIU/ml (0.34-5.60) L 01/20/18 12:15 Urine Source [place] 01/28/18 17:10 Urine Color YELLOW 01/28/18 17:10 Urine Clarity CLOUDY (CLEAR) H 01/28/18 17:10 Urine pH 6.0 (4.6 - 8.0) 01/28/18 17:10 Ur Specific [place] 1.020 (1.005-1.030) 01/28/18 17:10 Urine Protein 100 mg/dL (NEGATIVE) H 01/28/18 17:10 Urine Glucose (UA) NEGATIVE mg/dL (NEGATIVE) 01/28/18 17:10 Urine Ketones NEGATIVE mg/dL (NEGATIVE) 01/28/18 17:10 Urine Blood MODERATE (NEGATIVE) H 01/28/18 17:10 Urine Nitrate NEGATIVE (NEGATIVE) 01/28/18 17:10 Urine Bilirubin NEGATIVE (NEGATIVE) 01/28/18 17:10 Urine Urobilinogen 0.2 E.U./dL (0.2 - 1.0) 01/28/18 17:10 Ur Leukocyte Esterase MODERATE (NEGATIVE) H 01/28/18 17:10 Urine RBC 5-10 /hpf (0-5) H 01/28/18 17:10 Urine WBC 10-25 /hpf (0-5) H 01/28/18 17:10 Ur Epithelial Cells OCCASIONAL /lpf (FEW) 01/28/18 17:10 Urine Bacteria OCCASIONAL /hpf (NONE SEEN) 01/28/18 17:10 Urine Yeast MANY /hpf (NONE SEEN) H 01/28/18 17:10 Ur Random Sodium 56 mmol/L 01/28/18 17:10 Urine Creatinine 39.0 mg/dl (28.0-217.0) 01/28/18 17:10 Stool Occult Blood NEGATIVE (NEGATIVE) 02/05/18 14:50 Vancomycin Trough 27.8 ug/mL (10-20) H 01/26/18 23:00 Random Vancomycin 22.6 ug/mL (5.0-40.0) 02/03/18 04:20 Blood Type O POSITIVE 02/03/18 16:58 Antibody Screen NEGATIVE 02/03/18 16:58 Crossmatch See Detail 02/03/18 16:58 - Physical Exam Vitals and I&O: Vital Signs Temp 96.2 F 02/08/18 08:00 Pulse 74 02/08/18 13:05 Resp 18 02/08/18 11:00 BP 93/48 02/08/18 11:56 Pulse Ox 100 02/08/18 13:05 Intake & Output 02/07/18 02/08/18 02/08/18 18:59 06:59 18:59 Intake Total 100 150 Output Total 200 Balance 100 -50 Weight (lbs) 54.034 kg Intake: Intake, IV Amount 100 100 Meropenem 1 gm In Sodium 100 100 Chloride 0.9% 100 ml @ 100 mls/hr IV Q12H [facility] Rx #:[id number] Other 50 Output: Urine 200 Other: # Bowel Movements 1 Weight Source Bedscale Active Medications: Current Medications Acetaminophen (Tylenol) 650 mg PO Q4H PRN PRN Reason: MILD PAIN OR TEMP >100.4 Stop: 03/21/18 16:07 Al Hydrox/Mg Hydrox/Simethicone (Maalox) 30 ml PO Q6HR PRN PRN Reason: GI DISTRESS Stop: 03/21/18 16:28 Albuterol/Ipratropium (Duoneb Neb) 3 ml HHN Q6HRT [facility] Stop: 03/30/18 00:59 Last Admin: 02/08/18 06:37 Dose: 3 ml Amlodipine Besylate (Norvasc) 10 mg PO DAILY [facility] Stop: 04/02/18 16:59 Last Admin: 02/08/18 09:37 Dose: 10 mg Artificial Tears (Artificial Tears Ophth Soln) 1 drop EACH EYE Q2HR PRN PRN Reason: Dry Eye Stop: 03/27/18 09:28 Last Admin: 02/05/18 09:06 Dose: 1 drop Atorvastatin Calcium (Lipitor) 80 mg PO HS [facility] PRN Reason: Protocol Stop: 03/21/18 20:59 Last Admin: 02/06/18 20:45 Dose: 80 mg Bisacodyl (Dulcolax 10 Mg Supp) 10 mg RC DAILY PRN PRN Reason: Constipation Stop: 03/21/18 16:07 Budesonide (Pulmicort) 0.5 mg HHN BIDRT [facility] Stop: 04/01/18 18:59 Last Admin: 02/08/18 06:37 Dose: 0.5 mg Carvedilol (Coreg) 12.5 mg PO BID [facility] Stop: 03/21/18 16:59 Last Admin: 02/08/18 09:38 Dose: 12.5 mg Chlorhexidine Gluconate (Peridex) 15 ml MM 0800,2000 [facility] Stop: 03/27/18 07:59 Last Admin: 02/08/18 08:30 Dose: 15 ml Dextrose (D50w) 50 ml IVP PRN PRN PRN Reason: HYPOGLYCEMIA Stop: 03/21/18 16:07 Diltiazem HCl (Cardizem) 60 mg PO Q6HR [facility] Stop: 03/21/18 17:59 Last Admin: 02/08/18 12:24 Dose: Not Given Enalaprilat (Vasotec) 2.5 mg IVP Q6HR PRN PRN Reason: SBP ABOVE 160 Stop: 03/25/18 11:59 Last Admin: 02/07/18 13:53 Dose: 2.5 mg Glucagon (Glucagen) 1 mg IVP PRN PRN PRN Reason: HYPOGLYCEMIA Stop: 03/21/18 16:25 Meropenem 1 gm/ Sodium (Chloride) 100 mls @ 100 mls/hr IV Q12H [facility] Stop: 03/26/18 08:59 Last Admin: 02/08/18 08:50 Dose: 100 mls/hr Phenylephrine HCl 10 mg/ (Sodium Chloride) 250 mls @ 75 mls/hr IV TITR [facility]; 50 MCG/MIN PRN Reason: Protocol Stop: 03/25/18 20:14 Norepinephrine Bitartrate 4 mg (/ Sodium Chloride) 254 mls @ 15.24 mls/hr IV TITR [facility]; 4 MCG/MIN PRN Reason: Protocol Stop: 03/26/18 08:14 Last Titration: 02/06/18 18:30 Dose: 0 mcg/min, 0 mls/hr Dextrose (D5w) 1,000 mls @ 50 mls/hr IV .Q20H [facility] Stop: 04/07/18 14:14 Last Admin: 02/07/18 00:00 Dose: 50 mls/hr Furosemide 100 mg/ Sodium (Chloride) 100 mls @ 5 mls/hr IV TITR [facility] Stop: 04/08/18 13:29 Last Admin: 02/08/18 11:56 Dose: 5 mls/hr Insulin Aspart (Novolog Insulin Sliding Scale) 0 units SUBQ Q6HR [facility] PRN Reason: Protocol Stop: 03/27/18 00:00 Last Admin: 02/08/18 12:25 Dose: Not Given Losartan Potassium (Cozaar) 100 mg PO DAILY [facility] Stop: 04/02/18 16:59 Last Admin: 02/08/18 09:38 Dose: Not Given Magnesium Hydroxide (Milk Of Magnesia) 30 ml PO DAILY PRN PRN Reason: IF NO BM IN TWO DAYS Stop: 03/21/18 16:07 Metoprolol Tartrate (Lopressor) 5 mg IV Q4H PRN PRN Reason: Tachycardia Stop: 03/25/18 12:29 Morphine Sulfate (Morphine) 1 mg IV Q4HR PRN PRN Reason: MOD TO SEVERE PAIN Stop: 04/02/18 15:59 Last Admin: 02/05/18 01:29 Dose: 1 mg Multivitamins/Vitamin C (Theragran) 1 tab PO DAILY [facility] Stop: 03/22/18 08:59 Last Admin: 02/08/18 09:37 Dose: 1 tab Ondansetron HCl (Zofran Odt) 4 mg PO Q6H PRN PRN Reason: Nausea / Vomiting Stop: 03/21/18 16:07 Pantoprazole Sodium (Protonix) 40 mg NG DAILY [facility] Stop: 03/28/18 16:59 Last Admin: 02/08/18 09:37 Dose: 40 mg Prednisone (Deltasone) 10 mg PO DAILY [facility] Stop: 03/22/18 08:59 Last Admin: 02/08/18 09:38 Dose: 10 mg Sodium Phosphate (Fleet Enema) 135 ml RC DAILY PRN PRN Reason: Constipation Stop: 03/21/18 16:07 Vitamin A (Vitamin A & D) 5 gm TP DAILY [facility] Stop: 03/22/18 08:59 Last Admin: 02/08/18 09:37 Dose: 5 gm General: no acute distress, well developed, well nourished HEENT: atraumatic, normocephalic, PERRLA Neck: supple, no thyromegaly Cardiovascular: S1S2, regular Lungs: clear to auscultation bilaterally, clear to percussion, crackles Abdomen: soft, no tender, no distended Extremities: no cyanosis, no clubbing, no edema Neurological: other (unresponsive,) - Procedures Procedures: Procedures Procedure Code Date BYPASS TRACHEA TO CUTANEOUS WITH TRACH DEV, OPEN APPROACH [id number] 01/20/[address] GASTROSTOMY TUBE 23325 01/20/18 INCISION OF [place] 74024 01/20/18 INSERT EMERGENCY AIRWAY 30131 01/20/18 INSERTION OF ENDOTRACHEAL AIRWAY INTO TRACHEA, VIA OPENING [id number] 01/20/18 INSERTION OF FEEDING DEVICE INTO STOMACH, PERC APPROACH [id number] 01/20/18 RESPIRATORY VENTILATION, GREATER THAN 96 CONSECUTIVE HOURS [id number] 01/20/18 VENT MGMT INPAT IN DAY 99309 01/20/18 Infectious Disease Assmt/Plan - Problem List Patient Problems: All Active Problems Dementia (Acute) F03.90 ELEVATED WBC, LUNG INFILTRATES (Acute) Leukocytosis (Acute) D72.829 Pneumonia (Acute) J18.9 - Assessment Assessment: 1. Leukocytosis. suspect sepsis. 2. Pneumonia. L lung. 3. Dementia 4. S/p CP arrest. 5. Anoxic encephalopathy. 6. VDRF. 7. Increaing creatinine. LAURENCE. oliguric. 8. pulmonary aspergillosis. - Plan Plan: Continue meropenem. Continue voriconazole po ( not IV). 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 Leukocytosis, reactive, improving on repeat test. Nutritional Asmnt/Malnutr-PDOC - Dietary Evaluation Malnutrition Findings (Please click <Entered> for more info): Nutritional Asmnt/Malnutrition Start: 01/21/18 16: 32 Text: Status: Complete Freq: Document 01/21/18 16:32 [facility] (Rec: 01/21/18 16[id number] Nutritional Asmnt/Malnutrition Patient General Information Nutritional Screening High Risk Consult Diagnosis left lung infiltrate Pertinent Medical Hx/Surgical Hx dementia, HTN, hyperlipidemia per ER notes, no H&P at this time Subjective Information Pt seen sleeping at time of visit, not able to wake up for lunch. Per [employer], pt only had cereal and scrambled eggs this morning, not able to chew the Dutch toast d/t weakness. Current Diet Order/ Nutrition Support low cholesterol 300gm Pertinent Medications D5-0.45ns, novolog, megace, theragran, piperacillin, vit A &D Pertinent Labs 01/21 BUN 32, Glucose 180, POC 142-261 01/20 A1c 5.1, POC 127-165 Nutritional Hx/Data Height 1.6 m Height (Calculated Centimeters) 160.0 Current Weight (lbs) 37.648 kg Weight (Calculated Kilograms) 37.6 Weight (Calculated Grams) 35848.2 [place] Body Weight 115 Body Mass Index (BMI) 14.7 Weight Status Underweight GI Symptoms GI Symptoms None Last BM none Difficult in: None Skin Integrity/Comment: reddened to vagina and coccyx Current %PO Poor (25-49%) Estimated Nutritional Goals Calories/Kcals/Kg 25-30 Kcals Calculated 4314-2750 Protein g/k Protein Calculated 52 Fluid: ml 1300-1560ml (1ml/kcal) Nutritional Problem 2. Problem Problem chewing difficulty Etiology weakness, sleepy Signs/Symptoms: pt need for mech soft diet 1. Problem Problem altered nutrition related lab values Etiology hyperglycemia Signs/Symptoms: Glucose 180, POC 127-261 Intervention/Recommendation Comments 1. Recommend Mech soft ground diet with Boost BID to increase nutrition intake. 2. Monitor PO intake, wt, labs and skin integrity 3. F/U as high risk in 2-3 days, 01/23-01/24 Expected Outcomes/Goals Expected Outcomes/Goals 1. PO intake to meet at least 75% of nutritional needs. 2. Wt stability, skin to remain intact, labs to approach WNL.
--- NOTE | 2018-02-08 16:15 | Pathology Report ---
[id number] Collection Date: 02/07/2018 Surgeon: Dr. Nohemi Talamantes Specimen Description: 1. Duodenal polyp 2. Antrum polyp Gross Description: Part I: Received in formalin are two lou soft tissue fragments ranging from 0.1 to 0.2 cm in greatest dimension. Totally submitted in one cassette labeled A. Gross Description: Part II: Received in formalin is a single lou soft tissue fragment measuring 0.2 cm in greatest dimension. Totally submitted in one cassette labeled B. Microscopic Description: Part I: The histologic sections show fragments of benign duodenal mucosa with mild chronic inflammation present, consisting of slightly increased numbers of lymphocytes and plasma cells. There is a focal area of acute inflammation associated with superficial mucosal ulceration. The intestinal villi are intact and show no significant villous abnormalities. Diagnosis: Part I: Mild nonspecific acute and chronic inflammation with focal superficial mucosal ulceration (duodenal biopsy). Microscopic Description: Part II: The histologic sections show gastric mucosa with chronic inflammation present, consisting of increased numbers of lymphocytes and plasma cells. The Giemsa stain shows no evidence for Helicobacter pylori. Diagnosis: Part II: 1. Chronic gastritis, antrum biopsy. 2. The Giemsa stain is negative for Helicobacter pylori. [facility]# [id number] [facility]
[2018-02-08] MEDS: Dextrose 5% 1,000 ML IV SCH (20:00)
[2018-02-09] MEDS: Diltiazem 30 mg Tab PO SCH ×4 (00:33→21:01)
[2018-02-09] MEDS: INSULIN ASPART SLIDING SCALE 100 UNITS/ML UNIT SUBQ SCH ×4 (00:34→18:00)
[2018-02-09] MEDS: Albuterol/Ipratropium Neb 3 ML AERS HHN SCH ×4 (00:56→18:59)
[2018-02-09 05:02] LABS: HEMOGLOBIN 12.3 gm/dL (12-16); MANUAL DIFF REQUIRED? YES; MEAN CELL VOLUME 91.3 fl (81-100); MEAN CORPUSCULAR HEMOGLOBIN 31.1 pg (27.0-31.0); MEAN CORPUSCULAR HGB CONC 34.1 pg (28.0-36.0); MEAN PLATELET VOLUME 9.3 fl; PLATELET COUNT 79 Th/cmm (150-400); RED BLOOD COUNT 3.94 Mil/cmm (3.80-5.20); RED CELL DISTRIBUTION WIDTH 17.3 % (11.5-20.0)
[2018-02-09 05:38] LABS: WHITE BLOOD COUNT 23.6 Th/cmm (4.8-10.8)
[2018-02-09 05:43] LABS: ALB/GLOB RATIO 1.5 (1.0-1.8); ALBUMIN 2.2 gm/dL (3.7-5.3); ALKALINE PHOSPHATASE 310 U/L (34-104); ANION GAP 10.5 (7.0-16.0); BILIRUBIN,TOTAL 0.8 mg/dL (0.3-1.0); BUN - UREA NITROGEN 56 mg/dL (7-25); CALCIUM SERUM 7.6 mg/dL (8.6-10.3); CARBON DIOXIDE 23.4 mEq/L (21.0-31.0); CHLORIDE 96 mEq/L (98-107); CREATININE - SERUM 1.6 mg/dL (0.6-1.2); GLUCOSE 115 mg/dL (70-105); MAGNESIUM 1.8 mg/dL (1.9-2.7); POTASSIUM SERUM 3.9 mEq/L (3.5-5.1); SGOT 219 U/L (13-39); SGPT/ALT 38 U/L (7-52); SODIUM SERUM 126 mEq/L (136-145); TOTAL PROTEIN,SERUM 3.7 gm/dL (6.0-8.3)
[2018-02-09 06:01] LABS: BAND NEUTROPHILE 10 % (0-10); BASOPHIL 0 % (0-3); EOSINOPHIL 0 % (0-5); LYMPHOCYTE 4 % (20-50); MONOCYTE 4 % (2-10); NEUTROPHILS 82 % (40-80); TOTAL CELLS COUNTED 100
[2018-02-09 06:02] LABS: PLATELET ESTIMATE DECREASED PLATELETS (NORMAL); PLATELET MORPHOLOGY NORMAL (NORMAL)
[2018-02-09 06:03] LABS: TOXIC GRANULATION 1+
[2018-02-09] MEDS: Budesonide 0.5 Mg/2 mL Ud HHN SCH ×2 (07:14→18:59)
[2018-02-09] MEDS ORDERED: Albumin 25% 25gm/100mL 25 GM/100 ML BTL IV ONE (08:08)
--- NOTE | 2018-02-09 08:46 | GI Progress Note ---
Subjective - Review of Systems Service Date: 02/09/18 Subjective: Tolerating feeds, G tube ok Objective - Results Result Diagrams: 02/09/18 04:17 02/09/18 04:17 Recent Labs: Laboratory Last Values WBC 23.6 Th/cmm (4.8-10.8) H* 02/09/18 04:17 RBC 3.94 Mil/cmm (3.80-5.20) 02/09/18 04:17 Hgb 12.3 gm/dL (12-16) 02/09/18 04:17 Hct 36.0 % (41.0-60) L 02/09/18 04:17 MCV 91.3 fl (81-100) 02/09/18 04:17 MCH 31.1 pg (27.0-31.0) H 02/09/18 04:17 MCHC Differential 34.1 pg (28.0-36.0) 02/09/18 04:17 RDW 17.3 % (11.5-20.0) 02/09/18 04:17 Plt Count 79 Th/cmm (150-400) L 02/09/18 04:17 MPV 9.3 fl 02/09/18 04:17 Neutrophils % 87.3 % (40.0-80.0) H 02/05/18 07:00 Band Neutrophils % 10 % (0-10) 02/09/18 04:17 Lymphocytes % 7.0 % (20.0-50.0) L 02/05/18 07:00 Monocytes % 4.3 % (2.0-10.0) 02/05/18 07:00 Eosinophils % 1.4 % (0.0-5.0) 02/05/18 07:00 Basophils % 0.0 % (0.0-2.0) 02/05/18 07:00 Neutrophils (Manual) 82 % (40-80) H 02/09/18 04:17 Lymphocytes 4 % (20-50) L 02/09/18 04:17 Monocytes 4 % (2-10) 02/09/18 04:17 Eosinophils 0 % (0-5) 02/09/18 04:17 Basophils 0 % (0-3) 02/09/18 04:17 Toxic Granulation 1+ 02/09/18 04:17 Platelet Estimate DECREASED PLATELETS (NORMAL) 02/09/18 04:17 Platelet Morphology NORMAL (NORMAL) 02/09/18 04:17 RBC Morph Micro Appear NORMAL (NORMAL) 02/09/18 04:17 Eos Smear Source URINE 01/28/18 17:10 Eos Smear Total Cells NONE SEEN (NONE SEEN) 01/28/18 17:10 PT 10.4 SECONDS (9.5-11.5) 02/07/18 05:21 INR 1.00 (0.5-1.4) 02/07/18 05:21 PTT (Actin FS) 28.4 SECONDS (26.0-38.0) 02/07/18 05:21 Specimen Source Arterial 01/24/18 17:45 Sample Site Left Radial 01/24/18 17:45 pH 7.41 (7.35-7.45) 01/24/18 17:45 pCO2 32.0 mmHg (35.0-45.0) L 01/24/18 17:45 pO2 397.0 mmHg (80.0-100.0) H 01/24/18 17:45 HCO3 22.3 mEq/L (20.0-26.0) 01/24/18 17:45 Base Excess -3.5 mEq/L (-3.0-3.0) L 01/24/18 17:45 O2 Saturation 100.0 % (92.0-100.0) 01/24/18 17:45 Bebo Test YES 01/24/18 17:45 Vent Rate 14 01/24/18 17:45 Inspired O2 100 01/24/18 17:45 Tidal Volume 450 01/24/18 17:45 PEEP 5 01/24/18 17:45 Pressure (ins/psv/peep) NA 01/24/18 17:45 Critical Value E.BRIDGES 01/24/18 17:45 Sodium 126 mEq/L (136-145) L 02/09/18 04:17 Potassium 3.9 mEq/L (3.5-5.1) 02/09/18 04:17 Chloride 96 mEq/L (98-107) L 02/09/18 04:17 Carbon Dioxide 23.4 mEq/L (21.0-31.0) 02/09/18 04:17 Anion Gap 10.5 (7.0-16.0) 02/09/18 04:17 BUN 56 mg/dL (7-25) H 02/09/18 04:17 Creatinine 1.6 mg/dL (0.6-1.2) H 02/09/18 04:17 Est GFR ( Amer) TNP 02/09/18 04:17 Est GFR (Non-Af Amer) TNP 02/09/18 04:17 BUN/Creatinine Ratio 35.0 02/09/18 04:17 Glucose 115 mg/dL (70-105) H 02/09/18 04:17 POC Glucose 126 MG/DL (70 - 105) H 02/08/18 23:40 Hemoglobin A1c % 5.1 % (4.0-6.0) 01/20/18 12:15 Plasma/Ser Osmolality 287 mOsmol/kg (280-301) 01/28/18 17:45 Whole Bld Lactic Acid 1.50 mmol/L (0.60-1.99) 01/28/18 13:40 Uric Acid 5.3 mg/dL (2.3-6.6) 01/30/18 05:06 Calcium 7.6 mg/dL (8.6-10.3) L 02/09/18 04:17 Phosphorus 3.3 mg/dL (2.5-5.0) 01/30/18 05:06 Magnesium 1.8 mg/dL (1.9-2.7) L 02/09/18 04:17 Iron 54 ug/dL (27-139) 01/20/18 12:50 TIBC 159 ug/dL (250-450) L 01/20/18 12:50 Iron Saturation 34 % (15-55) 01/20/18 12:50 Unsaturated IBC 105 ug/dL (118-369) L 01/20/18 12:50 Ferritin 1230 ng/mL (15-150) H 01/20/18 12:50 Total Bilirubin 0.8 mg/dL (0.3-1.0) 02/09/18 04:17 Direct Bilirubin 0.07 mg/dL (0.0-0.2) 01/20/18 12:30 AST 219 U/L (13-39) H 02/09/18 04:17 ALT 38 U/L (7-52) 02/09/18 04:17 Alkaline Phosphatase 310 U/L (34-104) H 02/09/18 04:17 Troponin I 0.03 ng/mL (0.01-0.05) 01/20/18 12:15 C-Reactive Protein 4.3 mg/dL (0.0-0.9) H 01/20/18 12:50 B-Natriuretic Peptide 185.0 pg/mL (5.0-100.0) H 01/25/18 04:20 Total Protein 3.7 gm/dL (6.0-8.3) L 02/09/18 04:17 Albumin 2.2 gm/dL (3.7-5.3) L 02/09/18 04:17 Globulin 1.5 gm/dL 02/09/18 04:17 Albumin/Globulin Ratio 1.5 (1.0-1.8) 02/09/18 04:17 Triglycerides 97 mg/dL (<150) 01/20/18 12:15 Cholesterol 195 mg/dL (<200) 01/20/18 12:15 LDL Cholesterol Direct 152 mg/dL (75-193) 01/20/18 12:15 HDL Cholesterol 40 mg/dL (23-92) 01/20/18 12:15 Lipase 108 U/L (11-82) H 01/20/18 12:15 Free T4 1.12 ng/dL (0.82-1.77) 01/20/18 12:50 TSH 0.06 uIU/ml (0.34-5.60) L 01/20/18 12:15 Urine Source [place] 01/28/18 17:10 Urine Color YELLOW 01/28/18 17:10 Urine Clarity CLOUDY (CLEAR) H 01/28/18 17:10 Urine pH 6.0 (4.6 - 8.0) 01/28/18 17:10 Ur Specific [place] 1.020 (1.005-1.030) 01/28/18 17:10 Urine Protein 100 mg/dL (NEGATIVE) H 01/28/18 17:10 Urine Glucose (UA) NEGATIVE mg/dL (NEGATIVE) 01/28/18 17:10 Urine Ketones NEGATIVE mg/dL (NEGATIVE) 01/28/18 17:10 Urine Blood MODERATE (NEGATIVE) H 01/28/18 17:10 Urine Nitrate NEGATIVE (NEGATIVE) 01/28/18 17:10 Urine Bilirubin NEGATIVE (NEGATIVE) 01/28/18 17:10 Urine Urobilinogen 0.2 E.U./dL (0.2 - 1.0) 01/28/18 17:10 Ur Leukocyte Esterase MODERATE (NEGATIVE) H 01/28/18 17:10 Urine RBC 5-10 /hpf (0-5) H 01/28/18 17:10 Urine WBC 10-25 /hpf (0-5) H 01/28/18 17:10 Ur Epithelial Cells OCCASIONAL /lpf (FEW) 01/28/18 17:10 Urine Bacteria OCCASIONAL /hpf (NONE SEEN) 01/28/18 17:10 Urine Yeast MANY /hpf (NONE SEEN) H 01/28/18 17:10 Ur Random Sodium 56 mmol/L 01/28/18 17:10 Urine Creatinine 39.0 mg/dl (28.0-217.0) 01/28/18 17:10 Stool Occult Blood NEGATIVE (NEGATIVE) 02/05/18 14:50 Vancomycin Trough 27.8 ug/mL (10-20) H 01/26/18 23:00 Random Vancomycin 22.6 ug/mL (5.0-40.0) 02/03/18 04:20 Blood Type O POSITIVE 02/03/18 16:58 Antibody Screen NEGATIVE 02/03/18 16:58 Crossmatch See Detail 02/03/18 16:58 - Physical Exam Vitals and I&O: Vital Signs Temp 97.5 F 02/09/18 04:00 Pulse 68 02/09/18 07:15 Resp 22 02/09/18 06:00 BP 95/57 02/09/18 06:00 Pulse Ox 100 02/09/18 07:15 Intake & Output 02/08/18 02/09/18 02/09/18 18:59 06:59 18:59 Intake Total 100 911.667 Output Total 250 250 Balance -150 661.667 Weight (lbs) 53.977 kg 53.977 kg Intake: Intake, IV Amount 100 691.667 Dextrose 5% 1,000 ml @ 50 500 mls/hr IV .Q20H [facility] Rx#: [id number] Furosemide 100 mg In 91.667 Sodium Chloride 0.9% 90 ml @ 5 mls/hr IV TITR [facility] Rx#:[id number] Meropenem 1 gm In Sodium 100 100 Chloride 0.9% 100 ml @ 100 mls/hr IV Q12H [facility] Rx #:[id number] Tube Feeding 120 Other 100 Output: Urine 250 250 Other: # Bowel Movements 1 Stool Characteristics Liquid Green Weight Source Bedscale Bedscale Active Medications: Current Medications Acetaminophen (Tylenol) 650 mg PO Q4H PRN PRN Reason: MILD PAIN OR TEMP >100.4 Stop: 03/21/18 16:07 Al Hydrox/Mg Hydrox/Simethicone (Maalox) 30 ml PO Q6HR PRN PRN Reason: GI DISTRESS Stop: 03/21/18 16:28 Albuterol/Ipratropium (Duoneb Neb) 3 ml HHN Q6HRT [facility] Stop: 03/30/18 00:59 Last Admin: 02/09/18 07:14 Dose: 3 ml Amlodipine Besylate (Norvasc) 10 mg PO DAILY [facility] Stop: 04/02/18 16:59 Last Admin: 02/08/18 09:37 Dose: 10 mg Artificial Tears (Artificial Tears Ophth Soln) 1 drop EACH EYE Q2HR PRN PRN Reason: Dry Eye Stop: 03/27/18 09:28 Last Admin: 02/05/18 09:06 Dose: 1 drop Atorvastatin Calcium (Lipitor) 80 mg PO HS [facility] PRN Reason: Protocol Stop: 03/21/18 20:59 Last Admin: 02/08/18 20:47 Dose: 80 mg Bisacodyl (Dulcolax 10 Mg Supp) 10 mg RC DAILY PRN PRN Reason: Constipation Stop: 03/21/18 16:07 Budesonide (Pulmicort) 0.5 mg HHN BIDRT [facility] Stop: 04/01/18 18:59 Last Admin: 02/09/18 07:14 Dose: 0.5 mg Carvedilol (Coreg) 12.5 mg PO BID [facility] Stop: 03/21/18 16:59 Last Admin: 02/08/18 17:39 Dose: Not Given Chlorhexidine Gluconate (Peridex) 15 ml MM 0800,2000 [facility] Stop: 03/27/18 07:59 Last Admin: 02/08/18 20:15 Dose: 15 ml Dextrose (D50w) 50 ml IVP PRN PRN PRN Reason: HYPOGLYCEMIA Stop: 03/21/18 16:07 Diltiazem HCl (Cardizem) 60 mg PO Q6HR [facility] Stop: 03/21/18 17:59 Last Admin: 02/09/18 05:49 Dose: Not Given Enalaprilat (Vasotec) 2.5 mg IVP Q6HR PRN PRN Reason: SBP ABOVE 160 Stop: 03/25/18 11:59 Last Admin: 02/07/18 13:53 Dose: 2.5 mg Glucagon (Glucagen) 1 mg IVP PRN PRN PRN Reason: HYPOGLYCEMIA Stop: 03/21/18 16:25 Phenylephrine HCl 10 mg/ (Sodium Chloride) 250 mls @ 75 mls/hr IV TITR [facility]; 50 MCG/MIN PRN Reason: Protocol Stop: 03/25/18 20:14 Norepinephrine Bitartrate 4 mg (/ Sodium Chloride) 254 mls @ 15.24 mls/hr IV TITR [facility]; 4 MCG/MIN PRN Reason: Protocol Stop: 03/26/18 08:14 Last Titration: 02/06/18 18:30 Dose: 0 mcg/min, 0 mls/hr Dextrose (D5w) 1,000 mls @ 50 mls/hr IV .Q20H [facility] Stop: 04/07/18 14:14 Last Infusion: 02/09/18 06:00 Dose: 50 mls/hr Furosemide 100 mg/ Sodium (Chloride) 100 mls @ 5 mls/hr IV TITR [facility] Stop: 04/08/18 13:29 Last Infusion: 02/09/18 06:16 Dose: 5 mls/hr Albumin Human (Albuminar 25%) 25 gm in 100 mls @ 50 mls/hr IV X1 ONE Stop: 02/09/18 10:07 Insulin Aspart (Novolog Insulin Sliding Scale) 0 units SUBQ Q6HR [facility] PRN Reason: Protocol Stop: 03/27/18 00:00 Last Admin: 02/09/18 05:48 Dose: Not Given Losartan Potassium (Cozaar) 100 mg PO DAILY [facility] Stop: 04/02/18 16:59 Last Admin: 02/08/18 09:38 Dose: Not Given Magnesium Hydroxide (Milk Of Magnesia) 30 ml PO DAILY PRN PRN Reason: IF NO BM IN TWO DAYS Stop: 03/21/18 16:07 Metoprolol Tartrate (Lopressor) 5 mg IV Q4H PRN PRN Reason: Tachycardia Stop: 03/25/18 12:29 Multivitamins/Vitamin C (Theragran) 1 tab PO DAILY [facility] Stop: 03/22/18 08:59 Last Admin: 02/08/18 09:37 Dose: 1 tab Ondansetron HCl (Zofran Odt) 4 mg PO Q6H PRN PRN Reason: Nausea / Vomiting Stop: 03/21/18 16:07 Pantoprazole Sodium (Protonix) 40 mg NG DAILY [facility] Stop: 03/28/18 16:59 Last Admin: 02/08/18 09:37 Dose: 40 mg Prednisone (Deltasone) 10 mg PO DAILY [facility] Stop: 03/22/18 08:59 Last Admin: 02/08/18 09:38 Dose: 10 mg Sodium Phosphate (Fleet Enema) 135 ml RC DAILY PRN PRN Reason: Constipation Stop: 03/21/18 16:07 Vitamin A (Vitamin A & D) 5 gm TP DAILY [facility] Stop: 03/22/18 08:59 Last Admin: 02/08/18 09:37 Dose: 5 gm General: Mild distress HEENT: Atraumatic, Mucous membr. moist/pink, Other (facial edema, trach) Neck: Supple, +2 carotid pulse wo bruit Cardiovascular: Regular rate Lungs: Other (decreased BS, coarse rhonchi) Abdomen: Bowel sounds, Soft, Other (G tube c/d/i) Extremities: Edema, Other (less edema) Neurological: Sensation intact Skin: no Rash Psych/Mental Status: Other (obtunded) - Procedures Procedures: Procedures Procedure Code Date BYPASS TRACHEA TO CUTANEOUS WITH TRACH DEV, OPEN APPROACH [id number] 01/20/[address] GASTROSTOMY TUBE 85730 01/20/18 INCISION OF WINDPIPE [id number] 01/20/18 INSERT EMERGENCY AIRWAY [id number] 01/20/18 INSERTION OF ENDOTRACHEAL AIRWAY INTO TRACHEA, VIA OPENING [id number] 01/20/18 INSERTION OF FEEDING DEVICE INTO STOMACH, PERC APPROACH [id number] 01/20/18 RESPIRATORY VENTILATION, GREATER THAN 96 CONSECUTIVE HOURS [id number] 01/20/18 VENT MGMT INPAT INIT DAY 34155 01/20/18 Assessment/Plan - Problem List Patient Problems: All Active Problems Dementia (Acute) F03.90 ELEVATED WBC, LUNG INFILTRATES (Acute) Leukocytosis (Acute) D72.829 Pneumonia (Acute) J18.9 - Assessment Assessment: # Sepsis # Dementia # Resp failure # Dysphagia G tube placed on 02/07 at bedside after trach was placed earlier in the day. Gastritis and duodenitis also noted. Plan: - Tolerating G tube feeding at 30cc, Cont to goal rate - hold for residual > 100cc - flush with 100cc water every 6 hours - f/u gastric biopsies - other management as per primary and consultants GI to see as needed, and to follow biopsy results. Please call with any questions
[2018-02-09] MEDS: Pantoprazole 40 mg/Packet NG SCH (08:52)
[2018-02-09] MEDS: Multivitamin Tab PO SCH (08:52)
[2018-02-09] MEDS: Chlorhexidine Gluconate 0.12% 15mL Mouthwash MM SCH ×2 (08:53→20:56)
[2018-02-09] MEDS: Vitamin A/Vitamin D 5 gm Packet TP SCH (08:53)
--- NOTE | 2018-02-09 13:18 | General Progress Note ---
Subjective - Review of Systems Service Date: 02/09/18 Subjective: stuporous today, on vent Objective - Results Result Diagrams: 02/09/18 04:17 02/09/18 04:17 Recent Labs: Laboratory Last Values WBC 23.6 Th/cmm (4.8-10.8) H* 02/09/18 04:17 RBC 3.94 Mil/cmm (3.80-5.20) 02/09/18 04:17 Hgb 12.3 gm/dL (12-16) 02/09/18 04:17 Hct 36.0 % (41.0-60) L 02/09/18 04:17 MCV 91.3 fl (81-100) 02/09/18 04:17 MCH 31.1 pg (27.0-31.0) H 02/09/18 04:17 MCHC Differential 34.1 pg (28.0-36.0) 02/09/18 04:17 RDW 17.3 % (11.5-20.0) 02/09/18 04:17 Plt Count 79 Th/cmm (150-400) L 02/09/18 04:17 MPV 9.3 fl 02/09/18 04:17 Neutrophils % 87.3 % (40.0-80.0) H 02/05/18 07:00 Band Neutrophils % 10 % (0-10) 02/09/18 04:17 Lymphocytes % 7.0 % (20.0-50.0) L 02/05/18 07:00 Monocytes % 4.3 % (2.0-10.0) 02/05/18 07:00 Eosinophils % 1.4 % (0.0-5.0) 02/05/18 07:00 Basophils % 0.0 % (0.0-2.0) 02/05/18 07:00 Neutrophils (Manual) 82 % (40-80) H 02/09/18 04:17 Lymphocytes 4 % (20-50) L 02/09/18 04:17 Monocytes 4 % (2-10) 02/09/18 04:17 Eosinophils 0 % (0-5) 02/09/18 04:17 Basophils 0 % (0-3) 02/09/18 04:17 Toxic Granulation 1+ 02/09/18 04:17 Platelet Estimate DECREASED PLATELETS (NORMAL) 02/09/18 04:17 Platelet Morphology NORMAL (NORMAL) 02/09/18 04:17 RBC Morph Micro Appear NORMAL (NORMAL) 02/09/18 04:17 Eos Smear Source URINE 01/28/18 17:10 Eos Smear Total Cells NONE SEEN (NONE SEEN) 01/28/18 17:10 PT 10.4 SECONDS (9.5-11.5) 02/07/18 05:21 INR 1.00 (0.5-1.4) 02/07/18 05:21 PTT (Actin FS) 28.4 SECONDS (26.0-38.0) 02/07/18 05:21 Specimen Source Arterial 01/24/18 17:45 Sample Site Left Radial 01/24/18 17:45 pH 7.41 (7.35-7.45) 01/24/18 17:45 pCO2 32.0 mmHg (35.0-45.0) L 01/24/18 17:45 pO2 397.0 mmHg (80.0-100.0) H 01/24/18 17:45 HCO3 22.3 mEq/L (20.0-26.0) 01/24/18 17:45 Base Excess -3.5 mEq/L (-3.0-3.0) L 01/24/18 17:45 O2 Saturation 100.0 % (92.0-100.0) 01/24/18 17:45 Bebo Test YES 01/24/18 17:45 Vent Rate 14 01/24/18 17:45 Inspired O2 100 01/24/18 17:45 Tidal Volume 450 01/24/18 17:45 PEEP 5 01/24/18 17:45 Pressure (ins/psv/peep) NA 01/24/18 17:45 Critical Value E.BRIDGES 01/24/18 17:45 Sodium 126 mEq/L (136-145) L 02/09/18 04:17 Potassium 3.9 mEq/L (3.5-5.1) 02/09/18 04:17 Chloride 96 mEq/L (98-107) L 02/09/18 04:17 Carbon Dioxide 23.4 mEq/L (21.0-31.0) 02/09/18 04:17 Anion Gap 10.5 (7.0-16.0) 02/09/18 04:17 BUN 56 mg/dL (7-25) H 02/09/18 04:17 Creatinine 1.6 mg/dL (0.6-1.2) H 02/09/18 04:17 Est GFR ( Amer) TNP 02/09/18 04:17 Est GFR (Non-Af Amer) TNP 02/09/18 04:17 BUN/Creatinine Ratio 35.0 02/09/18 04:17 Glucose 115 mg/dL (70-105) H 02/09/18 04:17 POC Glucose 114 MG/DL (70 - 105) H 02/09/18 12:08 Hemoglobin A1c % 5.1 % (4.0-6.0) 01/20/18 12:15 Plasma/Ser Osmolality 287 mOsmol/kg (280-301) 01/28/18 17:45 Whole Bld Lactic Acid 1.50 mmol/L (0.60-1.99) 01/28/18 13:40 Uric Acid 5.3 mg/dL (2.3-6.6) 01/30/18 05:06 Calcium 7.6 mg/dL (8.6-10.3) L 02/09/18 04:17 Phosphorus 3.3 mg/dL (2.5-5.0) 01/30/18 05:06 Magnesium 1.8 mg/dL (1.9-2.7) L 02/09/18 04:17 Iron 54 ug/dL (27-139) 01/20/18 12:50 TIBC 159 ug/dL (250-450) L 01/20/18 12:50 Iron Saturation 34 % (15-55) 01/20/18 12:50 Unsaturated IBC 105 ug/dL (118-369) L 01/20/18 12:50 Ferritin 1230 ng/mL (15-150) H 01/20/18 12:50 Total Bilirubin 0.8 mg/dL (0.3-1.0) 02/09/18 04:17 Direct Bilirubin 0.07 mg/dL (0.0-0.2) 01/20/18 12:30 AST 219 U/L (13-39) H 02/09/18 04:17 ALT 38 U/L (7-52) 02/09/18 04:17 Alkaline Phosphatase 310 U/L (34-104) H 02/09/18 04:17 Troponin I 0.03 ng/mL (0.01-0.05) 01/20/18 12:15 C-Reactive Protein 4.3 mg/dL (0.0-0.9) H 01/20/18 12:50 B-Natriuretic Peptide 185.0 pg/mL (5.0-100.0) H 01/25/18 04:20 Total Protein 3.7 gm/dL (6.0-8.3) L 02/09/18 04:17 Albumin 2.2 gm/dL (3.7-5.3) L 02/09/18 04:17 Globulin 1.5 gm/dL 02/09/18 04:17 Albumin/Globulin Ratio 1.5 (1.0-1.8) 02/09/18 04:17 Triglycerides 97 mg/dL (<150) 01/20/18 12:15 Cholesterol 195 mg/dL (<200) 01/20/18 12:15 LDL Cholesterol Direct 152 mg/dL (75-193) 01/20/18 12:15 HDL Cholesterol 40 mg/dL (23-92) 01/20/18 12:15 Lipase 108 U/L (11-82) H 01/20/18 12:15 Free T4 1.12 ng/dL (0.82-1.77) 01/20/18 12:50 TSH 0.06 uIU/ml (0.34-5.60) L 01/20/18 12:15 Urine Source [place] 01/28/18 17:10 Urine Color YELLOW 01/28/18 17:10 Urine Clarity CLOUDY (CLEAR) H 01/28/18 17:10 Urine pH 6.0 (4.6 - 8.0) 01/28/18 17:10 Ur Specific [place] 1.020 (1.005-1.030) 01/28/18 17:10 Urine Protein 100 mg/dL (NEGATIVE) H 01/28/18 17:10 Urine Glucose (UA) NEGATIVE mg/dL (NEGATIVE) 01/28/18 17:10 Urine Ketones NEGATIVE mg/dL (NEGATIVE) 01/28/18 17:10 Urine Blood MODERATE (NEGATIVE) H 01/28/18 17:10 Urine Nitrate NEGATIVE (NEGATIVE) 01/28/18 17:10 Urine Bilirubin NEGATIVE (NEGATIVE) 01/28/18 17:10 Urine Urobilinogen 0.2 E.U./dL (0.2 - 1.0) 01/28/18 17:10 Ur Leukocyte Esterase MODERATE (NEGATIVE) H 01/28/18 17:10 Urine RBC 5-10 /hpf (0-5) H 01/28/18 17:10 Urine WBC 10-25 /hpf (0-5) H 01/28/18 17:10 Ur Epithelial Cells OCCASIONAL /lpf (FEW) 01/28/18 17:10 Urine Bacteria OCCASIONAL /hpf (NONE SEEN) 01/28/18 17:10 Urine Yeast MANY /hpf (NONE SEEN) H 01/28/18 17:10 Ur Random Sodium 56 mmol/L 01/28/18 17:10 Urine Creatinine 39.0 mg/dl (28.0-217.0) 01/28/18 17:10 Stool Occult Blood NEGATIVE (NEGATIVE) 02/05/18 14:50 Vancomycin Trough 27.8 ug/mL (10-20) H 01/26/18 23:00 Random Vancomycin 22.6 ug/mL (5.0-40.0) 02/03/18 04:20 Blood Type O POSITIVE 02/03/18 16:58 Antibody Screen NEGATIVE 02/03/18 16:58 Crossmatch See Detail 02/03/18 16:58 - Physical Exam Vitals and I&O: Vital Signs Temp 97.2 F 02/09/18 07:00 Pulse 61 02/09/18 13:06 Resp 15 02/09/18 10:00 BP 110/61 02/09/18 10:00 Pulse Ox 100 02/09/18 13:06 Intake & Output 02/08/18 02/09/18 02/09/18 18:59 06:59 18:59 Intake Total 100 911.667 100 Output Total 250 250 Balance -150 661.667 100 Weight (lbs) 53.977 kg 53.977 kg Intake: Intake, IV Amount 100 691.667 100 Dextrose 5% 1,000 ml @ 50 500 mls/hr IV .Q20H [facility] Rx#: [id number] Furosemide 100 mg In 91.667 Sodium Chloride 0.9% 90 ml @ 5 mls/hr IV TITR [facility] Rx#:[id number] Meropenem 1 gm In Sodium 100 100 Chloride 0.9% 100 ml @ 100 mls/hr IV Q12H [facility] Rx #:[id number] Tube Feeding 120 Other 100 Output: Urine 250 250 Other: # Bowel Movements 1 Stool Characteristics Liquid Liquid Green Green Weight Source Bedscale Bedscale Active Medications: Current Medications Acetaminophen (Tylenol) 650 mg PO Q4H PRN PRN Reason: MILD PAIN OR TEMP >100.4 Stop: 03/21/18 16:07 Al Hydrox/Mg Hydrox/Simethicone (Maalox) 30 ml PO Q6HR PRN PRN Reason: GI DISTRESS Stop: 03/21/18 16:28 Albuterol/Ipratropium (Duoneb Neb) 3 ml HHN Q6HRT [facility] Stop: 03/30/18 00:59 Last Admin: 02/09/18 12:18 Dose: 3 ml Amlodipine Besylate (Norvasc) 10 mg PO DAILY [facility] Stop: 04/02/18 16:59 Last Admin: 02/09/18 08:52 Dose: 10 mg Artificial Tears (Artificial Tears Ophth Soln) 1 drop EACH EYE Q2HR PRN PRN Reason: Dry Eye Stop: 03/27/18 09:28 Last Admin: 02/05/18 09:06 Dose: 1 drop Atorvastatin Calcium (Lipitor) 80 mg PO HS [facility] PRN Reason: Protocol Stop: 03/21/18 20:59 Last Admin: 02/08/18 20:47 Dose: 80 mg Bisacodyl (Dulcolax 10 Mg Supp) 10 mg RC DAILY PRN PRN Reason: Constipation Stop: 03/21/18 16:07 Budesonide (Pulmicort) 0.5 mg HHN BIDRT [facility] Stop: 04/01/18 18:59 Last Admin: 02/09/18 07:14 Dose: 0.5 mg Carvedilol (Coreg) 12.5 mg PO BID [facility] Stop: 03/21/18 16:59 Last Admin: 02/09/18 08:52 Dose: 12.5 mg Chlorhexidine Gluconate (Peridex) 15 ml MM 0800,2000 [facility] Stop: 03/27/18 07:59 Last Admin: 02/09/18 08:53 Dose: 15 ml Dextrose (D50w) 50 ml IVP PRN PRN PRN Reason: HYPOGLYCEMIA Stop: 03/21/18 16:07 Diltiazem HCl (Cardizem) 60 mg PO Q6HR [facility] Stop: 03/21/18 17:59 Last Admin: 02/09/18 12:51 Dose: Not Given Enalaprilat (Vasotec) 2.5 mg IVP Q6HR PRN PRN Reason: SBP ABOVE 160 Stop: 03/25/18 11:59 Last Admin: 02/07/18 13:53 Dose: 2.5 mg Glucagon (Glucagen) 1 mg IVP PRN PRN PRN Reason: HYPOGLYCEMIA Stop: 03/21/18 16:25 Phenylephrine HCl 10 mg/ (Sodium Chloride) 250 mls @ 75 mls/hr IV TITR [facility]; 50 MCG/MIN PRN Reason: Protocol Stop: 03/25/18 20:14 Norepinephrine Bitartrate 4 mg (/ Sodium Chloride) 254 mls @ 15.24 mls/hr IV TITR [facility]; 4 MCG/MIN PRN Reason: Protocol Stop: 03/26/18 08:14 Last Titration: 02/06/18 18:30 Dose: 0 mcg/min, 0 mls/hr Furosemide 100 mg/ Sodium (Chloride) 100 mls @ 5 mls/hr IV TITR [facility] Stop: 04/08/18 13:29 Last Infusion: 02/09/18 06:16 Dose: 5 mls/hr Insulin Aspart (Novolog Insulin Sliding Scale) 0 units SUBQ Q6HR [facility] PRN Reason: Protocol Stop: 03/27/18 00:00 Last Admin: 02/09/18 12:51 Dose: Not Given Losartan Potassium (Cozaar) 100 mg PO DAILY [facility] Stop: 04/02/18 16:59 Last Admin: 02/09/18 08:52 Dose: 100 mg Magnesium Hydroxide (Milk Of Magnesia) 30 ml PO DAILY PRN PRN Reason: IF NO BM IN TWO DAYS Stop: 03/21/18 16:07 Metoprolol Tartrate (Lopressor) 5 mg IV Q4H PRN PRN Reason: Tachycardia Stop: 03/25/18 12:29 Multivitamins/Vitamin C (Theragran) 1 tab PO DAILY [facility] Stop: 03/22/18 08:59 Last Admin: 02/09/18 08:52 Dose: 1 tab Ondansetron HCl (Zofran Odt) 4 mg PO Q6H PRN PRN Reason: Nausea / Vomiting Stop: 03/21/18 16:07 Pantoprazole Sodium (Protonix) 40 mg NG DAILY [facility] Stop: 03/28/18 16:59 Last Admin: 02/09/18 08:52 Dose: 40 mg Prednisone (Deltasone) 10 mg PO DAILY [facility] Stop: 03/22/18 08:59 Last Admin: 02/09/18 08:52 Dose: 10 mg Sodium Phosphate (Fleet Enema) 135 ml RC DAILY PRN PRN Reason: Constipation Stop: 03/21/18 16:07 Vitamin A (Vitamin A & D) 5 gm TP DAILY [facility] Stop: 03/22/18 08:59 Last Admin: 02/09/18 08:53 Dose: 5 gm General: Mild distress HEENT: Atraumatic, Mucous membr. moist/pink, Other (facial edema, trach) Neck: Supple, +2 carotid pulse wo bruit Cardiovascular: Regular rate, Normal S1, Normal S2 Lungs: Other (decreased BS, coarse rhonchi) Abdomen: Bowel sounds, Soft, Distended Extremities: Edema, Other (less edema) Neurological: Sensation intact Skin: no Rash Psych/Mental Status: Other (obtunded) - Procedures Procedures: Procedures Procedure Code Date BYPASS TRACHEA TO CUTANEOUS WITH TRACH DEV, OPEN APPROACH [id number] 01/20/[address] GASTROSTOMY TUBE 40142 01/20/18 INCISION OF WINDPIPE 19026 01/20/18 INSERT EMERGENCY AIRWAY 55267 01/20/18 INSERTION OF ENDOTRACHEAL AIRWAY INTO TRACHEA, VIA OPENING [id number] 01/20/18 INSERTION OF FEEDING DEVICE INTO STOMACH, PERC APPROACH [id number] 01/20/18 RESPIRATORY VENTILATION, GREATER THAN 96 CONSECUTIVE HOURS [id number] 01/20/18 VENT MGMT INPAT INIT DAY 93061 01/20/18 Assessment/Plan - Problem List Patient Problems: All Active Problems Dementia (Acute) F03.90 ELEVATED WBC, LUNG INFILTRATES (Acute) Leukocytosis (Acute) D72.829 Pneumonia (Acute) J18.9 - Assessment Assessment: LAURENCE Anuric 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 A. Fib Anemia of acute on CD non Gap met acid yeast UTI Anasarca - Plan Plan: Lab - Result Diagrams 01/29/18 05:10 01/29/18 05:10 Current Medications Acetaminophen (Tylenol) 650 mg PO Q4H PRN PRN Reason: MILD PAIN OR TEMP >100.4 Stop: 03/21/18 16:07 Al Hydrox/Mg Hydrox/Simethicone (Maalox) 30 ml PO Q6HR PRN PRN Reason: GI DISTRESS Stop: 03/21/18 16:28 Albuterol/Ipratropium (Duoneb Neb) 3 ml HHN Q6HRT [facility] Stop: 03/30/18 00:59 Last Admin: 01/29/18 13:21 Dose: 3 ml Artificial Tears (Artificial Tears Ophth Soln) 1 drop EACH EYE Q2HR PRN PRN Reason: Dry Eye Stop: 03/27/18 09:28 Last Admin: 01/26/18 10:13 Dose: 1 drop Atorvastatin Calcium (Lipitor) 80 mg PO HS [facility] PRN Reason: Protocol Stop: 03/21/18 20:59 Last Admin: 01/28/18 20:32 Dose: 80 mg Bisacodyl (Dulcolax 10 Mg Supp) 10 mg RC DAILY PRN PRN Reason: Constipation Stop: 03/21/18 16:07 Carvedilol (Coreg) 12.5 mg PO BID [facility] Stop: 03/21/18 16:59 Last Admin: 01/29/18 08:10 Dose: 12.5 mg Chlorhexidine Gluconate (Peridex) 15 ml MM 0800,2000 [facility] Stop: 03/27/18 07:59 Last Admin: 01/29/18 08:00 Dose: 15 ml Dextrose (D50w) 50 ml IVP PRN PRN PRN Reason: HYPOGLYCEMIA Stop: 03/21/18 16:07 Diltiazem HCl (Cardizem) 60 mg PO Q6HR [facility] Stop: 03/21/18 17:59 Last Admin: 01/29/18 12:10 Dose: 60 mg Enalaprilat (Vasotec) 2.5 mg IVP Q6HR PRN PRN Reason: SBP ABOVE 160 Stop: 03/25/18 11:59 Last Admin: 01/24/18 15:13 Dose: 2.5 mg Glucagon (Glucagen) 1 mg IVP PRN PRN PRN Reason: HYPOGLYCEMIA Stop: 03/21/18 16:25 Meropenem 1 gm/ Sodium (Chloride) 100 mls @ 100 mls/hr IV Q12H [facility] Stop: 03/26/18 08:59 Last Infusion: 01/29/18 10:30 Dose: Infused Phenylephrine HCl 10 mg/ (Sodium Chloride) 250 mls @ 75 mls/hr IV TITR [facility]; 50 MCG/MIN PRN Reason: Protocol Stop: 03/25/18 20:14 Norepinephrine Bitartrate 4 mg (/ Sodium Chloride) 254 mls @ 15.24 mls/hr IV TITR [facility]; 4 MCG/MIN PRN Reason: Protocol Stop: 03/26/18 08:14 Last Titration: 01/27/18 00:22 Dose: 0 mcg/min, 0 mls/hr Potassium Chloride/Dextrose/Sod Cl (D5-0.9ns W/Kcl 20meq) 1,000 mls @ 75 mls/ hr IV .[id number] [facility] Stop: 03/28/18 14:06 Last Admin: 01/29/18 12:54 Dose: 125 mls/hr Insulin Aspart (Novolog Insulin Sliding Scale) 0 units SUBQ Q6HR [facility] PRN Reason: Protocol Stop: 03/27/18 00:00 Last Admin: 01/29/18 12:09 Dose: 2 units Magnesium Hydroxide (Milk Of Magnesia) 30 ml PO DAILY PRN PRN Reason: IF NO BM IN TWO DAYS Stop: 03/21/18 16:07 Megestrol Acetate (Megace) 400 mg PO BID [facility] Stop: 03/21/18 16:59 Last Admin: 01/29/18 08:10 Dose: 400 mg Metoprolol Tartrate (Lopressor) 5 mg IV Q4H PRN PRN Reason: Tachycardia Stop: 03/25/18 12:29 Miscellaneous (Vancomycin Iv Per Pharmacy) 1 ea MC PRN [facility] Stop: 03/25/18 17:59 Multivitamins/Vitamin C (Theragran) 1 tab PO DAILY [facility] Stop: 03/22/18 08:59 Last Admin: 01/29/18 08:10 Dose: 1 tab Ondansetron HCl (Zofran Odt) 4 mg PO Q6H PRN PRN Reason: Nausea / Vomiting Stop: 03/21/18 16:07 Pantoprazole Sodium (Protonix) 40 mg NG DAILY [facility] Stop: 03/28/18 16:59 Last Admin: 01/29/18 08:10 Dose: 40 mg Prednisone (Deltasone) 10 mg PO DAILY [facility] Stop: 03/22/18 08:59 Last Admin: 01/29/18 08:10 Dose: 10 mg Sodium Bicarbonate (Sodium Bicarbonate) 650 mg PO BID [facility] PRN Reason: Protocol Stop: 03/29/18 16:59 Last Admin: 01/29/18 08:10 Dose: 650 mg Sodium Phosphate (Fleet Enema) 135 ml RC DAILY PRN PRN Reason: Constipation Stop: 03/21/18 16:07 Vitamin A (Vitamin A & D) 5 gm TP DAILY [facility] Stop: 03/22/18 08:59 Last Admin: 01/29/ Lab - Result Diagrams 02/09/18 04:17 02/09/18 04:17 kidney fnc deteriorated to 56/1.6 still w/facial/peripheral edema replace Ca, P04, Mg start Diflucan on top of Meropenem new [place] placed today WBC up to 23.6 CXR still w/ b/l small effusion, infiltrates hold dialysis for now & monitor ordered Lasix drip yesterday but only started 2 hrs ago, agree w/ albumin f/u electrolytes, cbc DC D5W because Na down to 126 Nutritional Asmnt/Malnutr-PDOC - Dietary Evaluation Malnutrition Findings (Please click <Entered> for more info): Nutritional Asmnt/Malnutrition Start: 01/21/18 16: 32 Text: Status: Complete Freq: Document 01/21/18 16:32 LCHENG (Rec: 01/21/18 16:48 [email or web address] [email or web address]) Nutritional Asmnt/Malnutrition Patient General Information Nutritional Screening High Risk Consult Diagnosis left lung infiltrate Pertinent Medical Hx/Surgical Hx dementia, HTN, hyperlipidemia per ER notes, no H&P at this time Subjective Information Pt seen sleeping at time of visit, not able to wake up for lunch. 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 Current Diet Order/ Nutrition Support low cholesterol 300gm Pertinent Medications D5-0.45ns, novolog, megace, theragran, piperacillin, vit A &D Pertinent Labs 01/21 BUN 32, Glucose 180, POC 142-261 01/20 A1c 5.1, POC 127-165 Nutritional Hx/Data Height 1.6 m Height (Calculated Centimeters) 160.0 Current Weight (lbs) 37.648 kg Weight (Calculated Kilograms) 37.6 Weight (Calculated Grams) 58421.2 Vance Body Weight 115 Body Mass Index (BMI) 14.7 Weight Status Underweight GI Symptoms GI Symptoms None Last BM none Difficult in: None Skin Integrity/Comment: reddened to vagina and coccyx Current %PO Poor (25-49%) Estimated Nutritional Goals Calories/Kcals/Kg 25-30 Kcals Calculated 1715-4162 Protein g/k Protein Calculated 52 Fluid: ml 1300-1560ml (1ml/kcal) Nutritional Problem 2. Problem Problem chewing difficulty Etiology weakness, sleepy Signs/Symptoms: pt need for mech soft diet 1. Problem Problem altered nutrition related lab values Etiology hyperglycemia Signs/Symptoms: Glucose 180, POC 127-261 Intervention/Recommendation Comments 1. Recommend Mech soft ground diet with Boost BID to increase nutrition intake. 2. Monitor PO intake, wt, labs and skin integrity 3. F/U as high risk in 2-3 days, 01/23-01/24 Expected Outcomes/Goals Expected Outcomes/Goals 1. PO intake to meet at least 75% of nutritional needs. 2. Wt stability, skin to remain intact, labs to approach WNL.
--- NOTE | 2018-02-09 16:21 | Progress Notes ---
DATE: 02/09/2018 SUBJECTIVE: The patient was seen in the Intensive Care Unit. The patient is a poor historian due to medical condition. Otherwise, the patient appears to be in no acute distress. OBJECTIVE: VITAL SIGNS: Temperature 97.3, heart rate 70, blood pressure 107/59, 100% on 30% FiO2 via ventilator. HEENT: Head is atraumatic and normocephalic. Eyes: Bilateral conjunctivae are clear. Bilateral pupils equal, round and reactive. NECK: Supple. No JVD. The patient has tracheostomy, connected to ventilator. GASTROINTESTINAL: Soft and nontender without guarding. Positive bowel sounds. The patient has a gastrostomy tube in place. MUSCULOSKELETAL: No clubbing. No cyanosis noted. ASSESSMENT: 1. Ventilator dependent respiratory failure. 2. Dysphagia. 3. Dementia. 4. Pneumonia. 5. Chronic kidney disease. PLAN: We will continue Lasix drip. We will monitor the patient's intake and output. We will put the patient on aspiration precaution. Continue IV antibiotics for pneumonia. We will provide pulmonary support. We will put the patient on aspiration precaution. We are also going to repeat labs in the morning and we are going to replace albumin for today. Treatment plans were discussed with the patient's nurse. Treatment plans were discussed with Dr. Casanova. JOB# [id number]
[2018-02-09] MEDS: Furosemide 100 MG in Sodium Chloride 0.9% 90 ML IV SCH (18:51)
--- NOTE | 2018-02-09 22:55 | Infectious Disease Prog Note ---
Infectious Disease Subjective - Review of Systems Service Date: 02/09/18 Subjective: No fever, remains intubated orally. on the ventilator support. Infectious Disease Objective - Results Result Diagrams: 02/11/18 04:15 02/11/18 04:15 Recent Labs: Laboratory Last Values WBC 23.6 Th/cmm (4.8-10.8) H* 02/09/18 04:17 RBC 3.94 Mil/cmm (3.80-5.20) 02/09/18 04:17 Hgb 12.3 gm/dL (12-16) 02/09/18 04:17 Hct 36.0 % (41.0-60) L 02/09/18 04:17 MCV 91.3 fl (81-100) 02/09/18 04:17 MCH 31.1 pg (27.0-31.0) H 02/09/18 04:17 MCHC Differential 34.1 pg (28.0-36.0) 02/09/18 04:17 RDW 17.3 % (11.5-20.0) 02/09/18 04:17 Plt Count 79 Th/cmm (150-400) L 02/09/18 04:17 MPV 9.3 fl 02/09/18 04:17 Neutrophils % 87.3 % (40.0-80.0) H 02/05/18 07:00 Band Neutrophils % 10 % (0-10) 02/09/18 04:17 Lymphocytes % 7.0 % (20.0-50.0) L 02/05/18 07:00 Monocytes % 4.3 % (2.0-10.0) 02/05/18 07:00 Eosinophils % 1.4 % (0.0-5.0) 02/05/18 07:00 Basophils % 0.0 % (0.0-2.0) 02/05/18 07:00 Neutrophils (Manual) 82 % (40-80) H 02/09/18 04:17 Lymphocytes 4 % (20-50) L 02/09/18 04:17 Monocytes 4 % (2-10) 02/09/18 04:17 Eosinophils 0 % (0-5) 02/09/18 04:17 Basophils 0 % (0-3) 02/09/18 04:17 Toxic Granulation 1+ 02/09/18 04:17 Platelet Estimate DECREASED PLATELETS (NORMAL) 02/09/18 04:17 Platelet Morphology NORMAL (NORMAL) 02/09/18 04:17 RBC Morph Micro Appear NORMAL (NORMAL) 02/09/18 04:17 Eos Smear Source URINE 01/28/18 17:10 Eos Smear Total Cells NONE SEEN (NONE SEEN) 01/28/18 17:10 PT 10.4 SECONDS (9.5-11.5) 02/07/18 05:21 INR 1.00 (0.5-1.4) 02/07/18 05:21 PTT (Actin FS) 28.4 SECONDS (26.0-38.0) 02/07/18 05:21 Specimen Source Arterial 01/24/18 17:45 Sample Site Left Radial 01/24/18 17:45 pH 7.41 (7.35-7.45) 01/24/18 17:45 pCO2 32.0 mmHg (35.0-45.0) L 01/24/18 17:45 pO2 397.0 mmHg (80.0-100.0) H 01/24/18 17:45 HCO3 22.3 mEq/L (20.0-26.0) 01/24/18 17:45 Base Excess -3.5 mEq/L (-3.0-3.0) L 01/24/18 17:45 O2 Saturation 100.0 % (92.0-100.0) 01/24/18 17:45 Bebo Test YES 01/24/18 17:45 Vent Rate 14 01/24/18 17:45 Inspired O2 100 01/24/18 17:45 Tidal Volume 450 01/24/18 17:45 PEEP 5 01/24/18 17:45 Pressure (ins/psv/peep) NA 01/24/18 17:45 Critical Value E.BRIDGES 01/24/18 17:45 Sodium 126 mEq/L (136-145) L 02/09/18 04:17 Potassium 3.9 mEq/L (3.5-5.1) 02/09/18 04:17 Chloride 96 mEq/L (98-107) L 02/09/18 04:17 Carbon Dioxide 23.4 mEq/L (21.0-31.0) 02/09/18 04:17 Anion Gap 10.5 (7.0-16.0) 02/09/18 04:17 BUN 56 mg/dL (7-25) H 02/09/18 04:17 Creatinine 1.6 mg/dL (0.6-1.2) H 02/09/18 04:17 Est GFR ( Amer) TNP 02/09/18 04:17 Est GFR (Non-Af Amer) TNP 02/09/18 04:17 BUN/Creatinine Ratio 35.0 02/09/18 04:17 Glucose 115 mg/dL (70-105) H 02/09/18 04:17 POC Glucose 114 MG/DL (70 - 105) H 02/09/18 12:08 Hemoglobin A1c % 5.1 % (4.0-6.0) 01/20/18 12:15 Plasma/Ser Osmolality 287 mOsmol/kg (280-301) 01/28/18 17:45 Whole Bld Lactic Acid 1.50 mmol/L (0.60-1.99) 01/28/18 13:40 Uric Acid 5.3 mg/dL (2.3-6.6) 01/30/18 05:06 Calcium 7.6 mg/dL (8.6-10.3) L 02/09/18 04:17 Phosphorus 3.3 mg/dL (2.5-5.0) 01/30/18 05:06 Magnesium 1.8 mg/dL (1.9-2.7) L 02/09/18 04:17 Iron 54 ug/dL (27-139) 01/20/18 12:50 TIBC 159 ug/dL (250-450) L 01/20/18 12:50 Iron Saturation 34 % (15-55) 01/20/18 12:50 Unsaturated IBC 105 ug/dL (118-369) L 01/20/18 12:50 Ferritin 1230 ng/mL (15-150) H 01/20/18 12:50 Total Bilirubin 0.8 mg/dL (0.3-1.0) 02/09/18 04:17 Direct Bilirubin 0.07 mg/dL (0.0-0.2) 01/20/18 12:30 AST 219 U/L (13-39) H 02/09/18 04:17 ALT 38 U/L (7-52) 02/09/18 04:17 Alkaline Phosphatase 310 U/L (34-104) H 02/09/18 04:17 Troponin I 0.03 ng/mL (0.01-0.05) 01/20/18 12:15 C-Reactive Protein 4.3 mg/dL (0.0-0.9) H 01/20/18 12:50 B-Natriuretic Peptide 185.0 pg/mL (5.0-100.0) H 01/25/18 04:20 Total Protein 3.7 gm/dL (6.0-8.3) L 02/09/18 04:17 Albumin 2.2 gm/dL (3.7-5.3) L 02/09/18 04:17 Globulin 1.5 gm/dL 02/09/18 04:17 Albumin/Globulin Ratio 1.5 (1.0-1.8) 02/09/18 04:17 Triglycerides 97 mg/dL (<150) 01/20/18 12:15 Cholesterol 195 mg/dL (<200) 01/20/18 12:15 LDL Cholesterol Direct 152 mg/dL (75-193) 01/20/18 12:15 HDL Cholesterol 40 mg/dL (23-92) 01/20/18 12:15 Lipase 108 U/L (11-82) H 01/20/18 12:15 Free T4 1.12 ng/dL (0.82-1.77) 01/20/18 12:50 TSH 0.06 uIU/ml (0.34-5.60) L 01/20/18 12:15 Urine Source [place] 01/28/18 17:10 Urine Color YELLOW 01/28/18 17:10 Urine Clarity CLOUDY (CLEAR) H 01/28/18 17:10 Urine pH 6.0 (4.6 - 8.0) 01/28/18 17:10 Ur Specific [place] 1.020 (1.005-1.030) 01/28/18 17:10 Urine Protein 100 mg/dL (NEGATIVE) H 01/28/18 17:10 Urine Glucose (UA) NEGATIVE mg/dL (NEGATIVE) 01/28/18 17:10 Urine Ketones NEGATIVE mg/dL (NEGATIVE) 01/28/18 17:10 Urine Blood MODERATE (NEGATIVE) H 01/28/18 17:10 Urine Nitrate NEGATIVE (NEGATIVE) 01/28/18 17:10 Urine Bilirubin NEGATIVE (NEGATIVE) 01/28/18 17:10 Urine Urobilinogen 0.2 E.U./dL (0.2 - 1.0) 01/28/18 17:10 Ur Leukocyte Esterase MODERATE (NEGATIVE) H 01/28/18 17:10 Urine RBC 5-10 /hpf (0-5) H 01/28/18 17:10 Urine WBC 10-25 /hpf (0-5) H 01/28/18 17:10 Ur Epithelial Cells OCCASIONAL /lpf (FEW) 01/28/18 17:10 Urine Bacteria OCCASIONAL /hpf (NONE SEEN) 01/28/18 17:10 Urine Yeast MANY /hpf (NONE SEEN) H 01/28/18 17:10 Ur Random Sodium 56 mmol/L 01/28/18 17:10 Urine Creatinine 39.0 mg/dl (28.0-217.0) 01/28/18 17:10 Stool Occult Blood POSITIVE (NEGATIVE) H 02/09/18 11:00 Vancomycin Trough 27.8 ug/mL (10-20) H 01/26/18 23:00 Random Vancomycin 22.6 ug/mL (5.0-40.0) 02/03/18 04:20 Blood Type O POSITIVE 02/03/18 16:58 Antibody Screen NEGATIVE 02/03/18 16:58 Crossmatch See Detail 02/03/18 16:58 - Physical Exam Vitals and I&O: Vital Signs Temp 96.5 F 02/09/18 20:00 Pulse 66 02/09/18 22:00 Resp 17 02/09/18 22:00 BP 109/57 02/09/18 22:00 Pulse Ox 100 02/09/18 22:00 Intake & Output 02/09/18 02/09/18 02/10/18 06:59 18:59 06:59 Intake Total 911.667 155.583 150 Output Total 250 120 Balance 661.667 155.583 30 Weight (lbs) 53.977 kg 53.977 kg Intake: Intake, IV Amount 691.667 155.583 Dextrose 5% 1,000 ml @ 50 500 mls/hr IV .Q20H [facility] Rx#: [id number] Furosemide 100 mg In 91.667 55.583 Sodium Chloride 0.9% 90 ml @ 5 mls/hr IV TITR [facility] Rx#:[id number] Meropenem 1 gm In Sodium 100 Chloride 0.9% 100 ml @ 100 mls/hr IV Q12H [facility] Rx #:[id number] Tube Feeding 120 Other 100 150 Output: Urine 250 120 Other: # Bowel Movements 1 2 Stool Characteristics Liquid Liquid Liquid Green Green Green Weight Source Bedscale Bedscale Active Medications: Current Medications Acetaminophen (Tylenol) 650 mg PO Q4H PRN PRN Reason: MILD PAIN OR TEMP >100.4 Stop: 03/21/18 16:07 Al Hydrox/Mg Hydrox/Simethicone (Maalox) 30 ml PO Q6HR PRN PRN Reason: GI DISTRESS Stop: 03/21/18 16:28 Albuterol/Ipratropium (Duoneb Neb) 3 ml HHN Q6HRT [facility] Stop: 03/30/18 00:59 Last Admin: 02/09/18 18:59 Dose: 3 ml Amlodipine Besylate (Norvasc) 10 mg PO DAILY [facility] Stop: 04/02/18 16:59 Last Admin: 02/09/18 08:52 Dose: 10 mg Artificial Tears (Artificial Tears Ophth Soln) 1 drop EACH EYE Q2HR PRN PRN Reason: Dry Eye Stop: 03/27/18 09:28 Last Admin: 02/05/18 09:06 Dose: 1 drop Atorvastatin Calcium (Lipitor) 80 mg PO HS [facility] PRN Reason: Protocol Stop: 03/21/18 20:59 Last Admin: 02/09/18 21:02 Dose: 80 mg Bisacodyl (Dulcolax 10 Mg Supp) 10 mg RC DAILY PRN PRN Reason: Constipation Stop: 03/21/18 16:07 Budesonide (Pulmicort) 0.5 mg HHN BIDRT [facility] Stop: 04/01/18 18:59 Last Admin: 02/09/18 18:59 Dose: 0.5 mg Carvedilol (Coreg) 12.5 mg PO BID [facility] Stop: 03/21/18 16:59 Last Admin: 02/09/18 16:00 Dose: Not Given Chlorhexidine Gluconate (Peridex) 15 ml MM 0800,2000 [facility] Stop: 03/27/18 07:59 Last Admin: 02/09/18 20:56 Dose: 15 ml Dextrose (D50w) 50 ml IVP PRN PRN PRN Reason: HYPOGLYCEMIA Stop: 03/21/18 16:07 Diltiazem HCl (Cardizem) 60 mg PO Q8HR [facility] Stop: 04/10/18 20:59 Last Admin: 02/09/18 21:01 Dose: Not Given Enalaprilat (Vasotec) 2.5 mg IVP Q6HR PRN PRN Reason: SBP ABOVE 160 Stop: 03/25/18 11:59 Last Admin: 02/07/18 13:53 Dose: 2.5 mg Glucagon (Glucagen) 1 mg IVP PRN PRN PRN Reason: HYPOGLYCEMIA Stop: 03/21/18 16:25 Phenylephrine HCl 10 mg/ (Sodium Chloride) 250 mls @ 75 mls/hr IV TITR [facility]; 50 MCG/MIN PRN Reason: Protocol Stop: 03/25/18 20:14 Norepinephrine Bitartrate 4 mg (/ Sodium Chloride) 254 mls @ 15.24 mls/hr IV TITR [facility]; 4 MCG/MIN PRN Reason: Protocol Stop: 03/26/18 08:14 Last Titration: 02/06/18 18:30 Dose: 0 mcg/min, 0 mls/hr Furosemide 100 mg/ Sodium (Chloride) 100 mls @ 5 mls/hr IV TITR [facility] Stop: 04/08/18 13:29 Last Admin: 02/09/18 18:51 Dose: 5 mls/hr Insulin Aspart (Novolog Insulin Sliding Scale) 0 units SUBQ Q6HR [facility] PRN Reason: Protocol Stop: 03/27/18 00:00 Last Admin: 02/09/18 18:00 Dose: Not Given Losartan Potassium (Cozaar) 100 mg PO DAILY [facility] Stop: 04/02/18 16:59 Last Admin: 02/09/18 08:52 Dose: 100 mg Magnesium Hydroxide (Milk Of Magnesia) 30 ml PO DAILY PRN PRN Reason: IF NO BM IN TWO DAYS Stop: 03/21/18 16:07 Metoprolol Tartrate (Lopressor) 5 mg IV Q4H PRN PRN Reason: Tachycardia Stop: 03/25/18 12:29 Multivitamins/Vitamin C (Theragran) 1 tab PO DAILY [facility] Stop: 03/22/18 08:59 Last Admin: 02/09/18 08:52 Dose: 1 tab Ondansetron HCl (Zofran Odt) 4 mg PO Q6H PRN PRN Reason: Nausea / Vomiting Stop: 03/21/18 16:07 Pantoprazole Sodium (Protonix) 40 mg NG DAILY [facility] Stop: 03/28/18 16:59 Last Admin: 02/09/18 08:52 Dose: 40 mg Prednisone (Deltasone) 10 mg PO DAILY [facility] Stop: 03/22/18 08:59 Last Admin: 02/09/18 08:52 Dose: 10 mg Sodium Phosphate (Fleet Enema) 135 ml RC DAILY PRN PRN Reason: Constipation Stop: 03/21/18 16:07 Vitamin A (Vitamin A & D) 5 gm TP DAILY [facility] Stop: 03/22/18 08:59 Last Admin: 02/09/18 08:53 Dose: 5 gm General: no acute distress, well developed, well nourished HEENT: atraumatic, normocephalic, PERRLA Neck: supple, no thyromegaly Cardiovascular: S1S2, regular Lungs: clear to auscultation bilaterally, clear to percussion Abdomen: soft, no tender, no distended, no mass, no hepatomegaly Extremities: edema, no cyanosis, no clubbing Neurological: other (unresponsive.) Skin: intact - Procedures Procedures: Procedures Procedure Code Date BYPASS TRACHEA TO CUTANEOUS WITH TRACH DEV, OPEN APPROACH [id number] 01/20/[address] GASTROSTOMY TUBE 74629 01/20/18 INCISION OF WINDPIPE 45273 01/20/18 INSERT EMERGENCY AIRWAY 00353 01/20/18 INSERTION OF ENDOTRACHEAL AIRWAY INTO TRACHEA, VIA OPENING [id number] 01/20/18 INSERTION OF FEEDING DEVICE INTO STOMACH, PERC APPROACH [id number] 01/20/18 RESPIRATORY VENTILATION, GREATER THAN 96 CONSECUTIVE HOURS [id number] 01/20/18 VENT MGMT INPAT INIT DAY 58958 01/20/18 Infectious Disease Assmt/Plan - Problem List Patient Problems: All Active Problems Dementia (Acute) F03.90 ELEVATED WBC, LUNG INFILTRATES (Acute) Leukocytosis (Acute) D72.829 Pneumonia (Acute) J18.9 - Assessment Assessment: 1. Leukocytosis. suspect sepsis. 2. Pneumonia. L lung. 3. Dementia 4. S/p CP arrest. 5. Anoxic encephalopathy. 6. VDRF. 7. Increaing creatinine. LAURENCE. oliguric. 8. pulmonary aspergillosis. - Plan Plan: Continue meropenem. Continue voriconazole po ( not IV). sepsis w/u. Leukocytosis, reactive, improving on repeat test. Nutritional Asmnt/Malnutr-PDOC - Dietary Evaluation Malnutrition Findings (Please click <Entered> for more info): Nutritional Asmnt/Malnutrition Start: 01/21/18 16: 32 Text: Status: Complete Freq: Document 01/21/18 16:[address] [facility] (Rec: 01/21/18 16:48 HEN [id number]) Nutritional Asmnt/Malnutrition Patient General Information Nutritional Screening High Risk Consult Diagnosis left lung infiltrate Pertinent Medical Hx/Surgical Hx dementia, HTN, hyperlipidemia per ER notes, no H&P at this time Subjective Information Pt seen sleeping at time of visit, not able to wake up for lunch. Per [employer], pt only had cereal and scrambled eggs this morning, not able to chew the [place] toast d/t weakness. Current Diet Order/ Nutrition Support low cholesterol 300gm Pertinent Medications D5-0.45ns, novolog, megace, theragran, piperacillin, vit A &D Pertinent Labs 01/21 BUN 32, Glucose 180, POC 142-261 01/20 A1c 5.1, POC 127-165 Nutritional Hx/Data Height 1.6 m Height (Calculated Centimeters) 160.0 Current Weight (lbs) 37.648 kg Weight (Calculated Kilograms) 37.6 Weight (Calculated Grams) 33653.2 [place] Body Weight 115 Body Mass Index (BMI) 14.7 Weight Status Underweight GI Symptoms GI Symptoms None Last BM none Difficult in: None Skin Integrity/Comment: reddened to vagina and coccyx Current %PO Poor (25-49%) Estimated Nutritional Goals Calories/Kcals/Kg 25-30 Kcals Calculated 5084-0199 Protein g/k Protein Calculated 52 Fluid: ml 1300-1560ml (1ml/kcal) Nutritional Problem 2. Problem Problem chewing difficulty Etiology weakness, sleepy Signs/Symptoms: pt need for mech soft diet 1. Problem Problem altered nutrition related lab values Etiology hyperglycemia Signs/Symptoms: Glucose 180, POC 127-261 Intervention/Recommendation Comments 1. Recommend Mech soft ground diet with Boost BID to increase nutrition intake. 2. Monitor PO intake, wt, labs and skin integrity 3. F/U as high risk in 2-3 days, 3/14-01/24 Expected Outcomes/Goals Expected Outcomes/Goals 1. PO intake to meet at least 75% of nutritional needs. 2. Wt stability, skin to remain intact, labs to approach WNL.
[2018-02-10] MEDS: INSULIN ASPART SLIDING SCALE 100 UNITS/ML UNIT SUBQ SCH ×4 (00:17→18:00)
[2018-02-10] MEDS: Albuterol/Ipratropium Neb 3 ML AERS HHN SCH ×4 (01:25→18:39)
[2018-02-10] MEDS: Diltiazem 30 mg Tab PO SCH ×3 (04:47→21:20)
[2018-02-10 04:55] LABS: EOSINOPHILE ABSOLUTE 0.1 Th/cmm (0.1-0.4); HEMOGLOBIN 10.2 gm/dL (12-16); LYMPHOCYTE ABSOLUTE 0.5 Th/cmm (1.5-3.0); MANUAL DIFF REQUIRED? YES; MEAN CORPUSCULAR HGB CONC 34.1 pg (28.0-36.0); MEAN PLATELET VOLUME 9.6 fl; MONOCYTE ABSOLUTE 0.6 Th/cmm (0.3-1.0); NEUTROPHILE ABSOLUTE 15.6 Th/cmm (1.8-8.0); PLATELET COUNT 61 Th/cmm (150-400); RED BLOOD COUNT 3.27 Mil/cmm (3.80-5.20); RED CELL DISTRIBUTION WIDTH 17.2 % (11.5-20.0)
[2018-02-10 05:21] LABS: ALB/GLOB RATIO 1.9 (1.0-1.8); ALBUMIN 2.5 gm/dL (3.7-5.3); ALKALINE PHOSPHATASE 542 U/L (34-104); ANION GAP 12.8 (7.0-16.0); BILIRUBIN,TOTAL 1.3 mg/dL (0.3-1.0); BUN - UREA NITROGEN 64 mg/dL (7-25); CALCIUM SERUM 7.7 mg/dL (8.6-10.3); CARBON DIOXIDE 22.2 mEq/L (21.0-31.0); CHLORIDE 94 mEq/L (98-107); CREATININE - SERUM 1.7 mg/dL (0.6-1.2); GLUCOSE 124 mg/dL (70-105); SGOT 418 U/L (13-39); SGPT/ALT 68 U/L (7-52); SODIUM SERUM 125 mEq/L (136-145); TOTAL PROTEIN,SERUM 3.8 gm/dL (6.0-8.3)
[2018-02-10 05:26] LABS: HEMATOCRIT 29.8 % (41.0-60); WHITE BLOOD COUNT 16.8 Th/cmm (4.8-10.8)
[2018-02-10 05:49] LABS: NEUTROPHILS 80 % (40-80); TOTAL CELLS COUNTED 100
[2018-02-10 05:50] LABS: BAND NEUTROPHILE 16 % (0-10); BASOPHIL 0 % (0-3); EOSINOPHIL 0 % (0-5); LYMPHOCYTE 2 % (20-50); MONOCYTE 2 % (2-10); PLATELET ESTIMATE DECREASED PLATELETS (NORMAL); PLATELET MORPHOLOGY NORMAL (NORMAL)
[2018-02-10] MEDS: Budesonide 0.5 Mg/2 mL Ud HHN SCH ×2 (07:38→18:39)
[2018-02-10] MEDS: Pantoprazole 40 mg/Packet NG SCH (09:21)
[2018-02-10] MEDS: Multivitamin Tab PO SCH (09:21)
[2018-02-10] MEDS: Chlorhexidine Gluconate 0.12% 15mL Mouthwash MM SCH ×2 (09:22→21:11)
[2018-02-10] MEDS: Vitamin A/Vitamin D 5 gm Packet TP SCH (09:23)
--- NOTE | 2018-02-10 10:26 | Diagnostic Imaging Report ---
Exam: Portable Chest x-ray. HISTORY: Congestive heart failure. Findings: Portable examination of the chest at 0749 hours reviewed compared to prior study of 02/07/2018 demonstrates unchanged position of tubes and lines. Mediastinal structures midline the heart is not enlarged. There is evidence for left lower lobe pneumonia and effusion. COPD changes are noted. There is no evidence of congestion. IMPRESSION: 1. COPD changes, left basilar infiltrate and effusion follow-up initially recommended.
--- NOTE | 2018-02-10 11:17 | General Progress Note ---
Subjective - Review of Systems Events since last encounter: on vent no change Objective - Results Result Diagrams: 02/10/18 04:16 02/10/18 04:16 Recent Labs: Laboratory Last Values WBC 16.8 Th/cmm (4.8-10.8) H D 02/10/18 04:16 RBC 3.27 Mil/cmm (3.80-5.20) L 02/10/18 04:16 Hgb 10.2 gm/dL (12-16) L 02/10/18 04:16 Hct 29.8 % (41.0-60) L D 02/10/18 04:16 MCV 91.0 fl (81-100) 02/10/18 04:16 MCH 31.0 pg (27.0-31.0) 02/10/18 04:16 MCHC Differential 34.1 pg (28.0-36.0) 02/10/18 04:16 RDW 17.2 % (11.5-20.0) 02/10/18 04:16 Plt Count 61 Th/cmm (150-400) L 02/10/18 04:16 MPV 9.6 fl 02/10/18 04:16 Neutrophils % 87.3 % (40.0-80.0) H 02/05/18 07:00 Band Neutrophils % 16 % (0-10) H 02/10/18 04:16 Lymphocytes % 7.0 % (20.0-50.0) L 02/05/18 07:00 Monocytes % 4.3 % (2.0-10.0) 02/05/18 07:00 Eosinophils % 1.4 % (0.0-5.0) 02/05/18 07:00 Basophils % 0.0 % (0.0-2.0) 02/05/18 07:00 Neutrophils (Manual) 80 % (40-80) 02/10/18 04:16 Lymphocytes 2 % (20-50) L 02/10/18 04:16 Monocytes 2 % (2-10) 02/10/18 04:16 Eosinophils 0 % (0-5) 02/10/18 04:16 Basophils 0 % (0-3) 02/10/18 04:16 Toxic Granulation 1+ 02/09/18 04:17 Platelet Estimate DECREASED PLATELETS (NORMAL) 02/10/18 04:16 Platelet Morphology NORMAL (NORMAL) 02/10/18 04:16 RBC Morph Micro Appear NORMAL (NORMAL) 02/10/18 04:16 Eos Smear Source URINE 01/28/18 17:10 Eos Smear Total Cells NONE SEEN (NONE SEEN) 01/28/18 17:10 PT 10.4 SECONDS (9.5-11.5) 02/07/18 05:21 INR 1.00 (0.5-1.4) 02/07/18 05:21 PTT (Actin FS) 28.4 SECONDS (26.0-38.0) 02/07/18 05:21 Specimen Source Arterial 01/24/18 17:45 Sample Site Left Radial 01/24/18 17:45 pH 7.41 (7.35-7.45) 01/24/18 17:45 pCO2 32.0 mmHg (35.0-45.0) L 01/24/18 17:45 pO2 397.0 mmHg (80.0-100.0) H 01/24/18 17:45 HCO3 22.3 mEq/L (20.0-26.0) 01/24/18 17:45 Base Excess -3.5 mEq/L (-3.0-3.0) L 01/24/18 17:45 O2 Saturation 100.0 % (92.0-100.0) 01/24/18 17:45 Bebo Test YES 01/24/18 17:45 Vent Rate 14 01/24/18 17:45 Inspired O2 100 01/24/18 17:45 Tidal Volume 450 01/24/18 17:45 PEEP 5 01/24/18 17:45 Pressure (ins/psv/peep) NA 01/24/18 17:45 Critical Value E.BRIDGES 01/24/18 17:45 Sodium 125 mEq/L (136-145) L 02/10/18 04:16 Potassium 4.0 mEq/L (3.5-5.1) 02/10/18 04:16 Chloride 94 mEq/L (98-107) L 02/10/18 04:16 Carbon Dioxide 22.2 mEq/L (21.0-31.0) 02/10/18 04:16 Anion Gap 12.8 (7.0-16.0) 02/10/18 04:16 BUN 64 mg/dL (7-25) H 02/10/18 04:16 Creatinine 1.7 mg/dL (0.6-1.2) H 02/10/18 04:16 Est GFR ( Amer) TNP 02/10/18 04:16 Est GFR (Non-Af Amer) TNP 02/10/18 04:16 BUN/Creatinine Ratio 37.6 02/10/18 04:16 Glucose 124 mg/dL (70-105) H 02/10/18 04:16 POC Glucose 129 MG/DL (70 - 105) H 02/09/18 23:54 Hemoglobin A1c % 5.1 % (4.0-6.0) 01/20/18 12:15 Plasma/Ser Osmolality 287 mOsmol/kg (280-301) 01/28/18 17:45 Whole Bld Lactic Acid 1.50 mmol/L (0.60-1.99) 01/28/18 13:40 Uric Acid 5.3 mg/dL (2.3-6.6) 01/30/18 05:06 Calcium 7.7 mg/dL (8.6-10.3) L 02/10/18 04:16 Phosphorus 3.3 mg/dL (2.5-5.0) 01/30/18 05:06 Magnesium 1.8 mg/dL (1.9-2.7) L 02/09/18 04:17 Iron 54 ug/dL (27-139) 01/20/18 12:50 TIBC 159 ug/dL (250-450) L 01/20/18 12:50 Iron Saturation 34 % (15-55) 01/20/18 12:50 Unsaturated IBC 105 ug/dL (118-369) L 01/20/18 12:50 Ferritin 1230 ng/mL (15-150) H 01/20/18 12:50 Total Bilirubin 1.3 mg/dL (0.3-1.0) H 02/10/18 04:16 Direct Bilirubin 0.07 mg/dL (0.0-0.2) 01/20/18 12:30 AST 418 U/L (13-39) H 02/10/18 04:16 ALT 68 U/L (7-52) H 02/10/18 04:16 Alkaline Phosphatase 542 U/L (34-104) H 02/10/18 04:16 Troponin I 0.03 ng/mL (0.01-0.05) 01/20/18 12:15 C-Reactive Protein 4.3 mg/dL (0.0-0.9) H 01/20/18 12:50 B-Natriuretic Peptide 185.0 pg/mL (5.0-100.0) H 01/25/18 04:20 Total Protein 3.8 gm/dL (6.0-8.3) L 02/10/18 04:16 Albumin 2.5 gm/dL (3.7-5.3) L 02/10/18 04:16 Globulin 1.3 gm/dL 02/10/18 04:16 Albumin/Globulin Ratio 1.9 (1.0-1.8) H 02/10/18 04:16 Triglycerides 97 mg/dL (<150) 01/20/18 12:15 Cholesterol 195 mg/dL (<200) 01/20/18 12:15 LDL Cholesterol Direct 152 mg/dL (75-193) 01/20/18 12:15 HDL Cholesterol 40 mg/dL (23-92) 01/20/18 12:15 Lipase 108 U/L (11-82) H 01/20/18 12:15 Free T4 1.12 ng/dL (0.82-1.77) 01/20/18 12:50 TSH 0.06 uIU/ml (0.34-5.60) L 01/20/18 12:15 Urine Source [place] 01/28/18 17:10 Urine Color YELLOW 01/28/18 17:10 Urine Clarity CLOUDY (CLEAR) H 01/28/18 17:10 Urine pH 6.0 (4.6 - 8.0) 01/28/18 17:10 Ur Specific [place] 1.020 (1.005-1.030) 01/28/18 17:10 Urine Protein 100 mg/dL (NEGATIVE) H 01/28/18 17:10 Urine Glucose (UA) NEGATIVE mg/dL (NEGATIVE) 01/28/18 17:10 Urine Ketones NEGATIVE mg/dL (NEGATIVE) 01/28/18 17:10 Urine Blood MODERATE (NEGATIVE) H 01/28/18 17:10 Urine Nitrate NEGATIVE (NEGATIVE) 01/28/18 17:10 Urine Bilirubin NEGATIVE (NEGATIVE) 01/28/18 17:10 Urine Urobilinogen 0.2 E.U./dL (0.2 - 1.0) 01/28/18 17:10 Ur Leukocyte Esterase MODERATE (NEGATIVE) H 01/28/18 17:10 Urine RBC 5-10 /hpf (0-5) H 01/28/18 17:10 Urine WBC 10-25 /hpf (0-5) H 01/28/18 17:10 Ur Epithelial Cells OCCASIONAL /lpf (FEW) 01/28/18 17:10 Urine Bacteria OCCASIONAL /hpf (NONE SEEN) 01/28/18 17:10 Urine Yeast MANY /hpf (NONE SEEN) H 01/28/18 17:10 Ur Random Sodium 56 mmol/L 01/28/18 17:10 Urine Creatinine 39.0 mg/dl (28.0-217.0) 01/28/18 17:10 Stool Occult Blood POSITIVE (NEGATIVE) H 02/09/18 11:00 Vancomycin Trough 27.8 ug/mL (10-20) H 01/26/18 23:00 Random Vancomycin 22.6 ug/mL (5.0-40.0) 02/03/18 04:20 Blood Type O POSITIVE 02/03/18 16:58 Antibody Screen NEGATIVE 02/03/18 16:58 Crossmatch See Detail 02/03/18 16:58 - Physical Exam Vitals and I&O: Vital Signs Temp 96.5 F 02/10/18 04:00 Pulse 62 02/10/18 09:23 Resp 27 02/10/18 06:00 BP 112/55 02/10/18 09:23 Pulse Ox 100 02/10/18 09:15 Intake & Output 02/09/18 02/10/18 02/10/18 18:59 06:59 18:59 Intake Total 155.583 640.167 Output Total 170 Balance 155.583 470.167 Weight (lbs) 52.163 kg Intake: Intake, IV Amount 155.583 60.167 Furosemide 100 mg In 55.583 60.167 Sodium Chloride 0.9% 90 ml @ 5 mls/hr IV TITR [facility] Rx#:[id number] Tube Feeding 330 Other 250 Output: Urine 170 Other: # Bowel Movements 1 Stool Characteristics Liquid Liquid Green Green Weight Source Bedscale Active Medications: Current Medications Acetaminophen (Tylenol) 650 mg PO Q4H PRN PRN Reason: MILD PAIN OR TEMP >100.4 Stop: 03/21/18 16:07 Al Hydrox/Mg Hydrox/Simethicone (Maalox) 30 ml PO Q6HR PRN PRN Reason: GI DISTRESS Stop: 03/21/18 16:28 Albuterol/Ipratropium (Duoneb Neb) 3 ml HHN Q6HRT [facility] Stop: 03/30/18 00:59 Last Admin: 02/10/18 07:18 Dose: 3 ml Amlodipine Besylate (Norvasc) 10 mg PO DAILY [facility] Stop: 04/02/18 16:59 Last Admin: 02/10/18 09:22 Dose: Not Given Artificial Tears (Artificial Tears Ophth Soln) 1 drop EACH EYE Q2HR PRN PRN Reason: Dry Eye Stop: 03/27/18 09:28 Last Admin: 02/05/18 09:06 Dose: 1 drop Atorvastatin Calcium (Lipitor) 80 mg PO HS [facility] PRN Reason: Protocol Stop: 03/21/18 20:59 Last Admin: 02/09/18 21:02 Dose: 80 mg Bisacodyl (Dulcolax 10 Mg Supp) 10 mg RC DAILY PRN PRN Reason: Constipation Stop: 03/21/18 16:07 Budesonide (Pulmicort) 0.5 mg HHN BIDRT [facility] Stop: 04/01/18 18:59 Last Admin: 02/10/18 07:38 Dose: 0.5 mg Carvedilol (Coreg) 12.5 mg PO BID [facility] Stop: 03/21/18 16:59 Last Admin: 02/10/18 09:23 Dose: Not Given Chlorhexidine Gluconate (Peridex) 15 ml MM 0800,2000 [facility] Stop: 03/27/18 07:59 Last Admin: 02/10/18 09:22 Dose: 15 ml Dextrose (D50w) 50 ml IVP PRN PRN PRN Reason: HYPOGLYCEMIA Stop: 03/21/18 16:07 Diltiazem HCl (Cardizem) 60 mg PO Q8HR [facility] Stop: 04/10/18 20:59 Last Admin: 02/10/18 04:47 Dose: Not Given Enalaprilat (Vasotec) 2.5 mg IVP Q6HR PRN PRN Reason: SBP ABOVE 160 Stop: 03/25/18 11:59 Last Admin: 02/07/18 13:53 Dose: 2.5 mg Glucagon (Glucagen) 1 mg IVP PRN PRN PRN Reason: HYPOGLYCEMIA Stop: 03/21/18 16:25 Phenylephrine HCl 10 mg/ (Sodium Chloride) 250 mls @ 75 mls/hr IV TITR [facility]; 50 MCG/MIN PRN Reason: Protocol Stop: 03/25/18 20:14 Norepinephrine Bitartrate 4 mg (/ Sodium Chloride) 254 mls @ 15.24 mls/hr IV TITR [facility]; 4 MCG/MIN PRN Reason: Protocol Stop: 03/26/18 08:14 Last Titration: 02/06/18 18:30 Dose: 0 mcg/min, 0 mls/hr Furosemide 100 mg/ Sodium (Chloride) 100 mls @ 5 mls/hr IV TITR [facility] Stop: 04/08/18 13:29 Last Infusion: 02/10/18 06:53 Dose: 5 mls/hr Insulin Aspart (Novolog Insulin Sliding Scale) 0 units SUBQ Q6HR [facility] PRN Reason: Protocol Stop: 03/27/18 00:00 Last Admin: 02/10/18 06:00 Dose: Not Given Losartan Potassium (Cozaar) 100 mg PO DAILY [facility] Stop: 04/02/18 16:59 Last Admin: 02/10/18 09:23 Dose: Not Given Magnesium Hydroxide (Milk Of Magnesia) 30 ml PO DAILY PRN PRN Reason: IF NO BM IN TWO DAYS Stop: 03/21/18 16:07 Metoprolol Tartrate (Lopressor) 5 mg IV Q4H PRN PRN Reason: Tachycardia Stop: 03/25/18 12:29 Multivitamins/Vitamin C (Theragran) 1 tab PO DAILY [facility] Stop: 03/22/18 08:59 Last Admin: 02/10/18 09:21 Dose: 1 tab Ondansetron HCl (Zofran Odt) 4 mg PO Q6H PRN PRN Reason: Nausea / Vomiting Stop: 03/21/18 16:07 Pantoprazole Sodium (Protonix) 40 mg NG DAILY [facility] Stop: 03/28/18 16:59 Last Admin: 02/10/18 09:21 Dose: 40 mg Prednisone (Deltasone) 10 mg PO DAILY [facility] Stop: 03/22/18 08:59 Last Admin: 02/10/18 09:21 Dose: 10 mg Sodium Phosphate (Fleet Enema) 135 ml RC DAILY PRN PRN Reason: Constipation Stop: 03/21/18 16:07 Vitamin A (Vitamin A & D) 5 gm TP DAILY [facility] Stop: 03/22/18 08:59 Last Admin: 02/10/18 09:23 Dose: 5 gm General: Mild distress HEENT: Atraumatic, Mucous membr. moist/pink, Other (facial edema, trach) Neck: Supple, +2 carotid pulse wo bruit Cardiovascular: Regular rate, Normal S1, Normal S2 Lungs: Other (decreased BS, coarse rhonchi) Abdomen: Bowel sounds, Soft, Distended Extremities: Edema, Other (less edema) Neurological: Sensation intact Skin: no Rash Psych/Mental Status: Other (obtunded) - Procedures Procedures: Procedures Procedure Code Date BYPASS TRACHEA TO CUTANEOUS WITH TRACH DEV, OPEN APPROACH [id number] 01/20/[address] GASTROSTOMY TUBE 33139 01/20/18 INCISION OF WINDPIPE 16533 01/20/18 INSERT EMERGENCY AIRWAY 86920 01/20/18 INSERTION OF ENDOTRACHEAL AIRWAY INTO TRACHEA, VIA OPENING [id number] 01/20/18 INSERTION OF FEEDING DEVICE INTO STOMACH, PERC APPROACH [id number] 01/20/18 RESPIRATORY VENTILATION, GREATER THAN 96 CONSECUTIVE HOURS [id number] 01/20/18 VENT MGMT INPAT INIT DAY 14385 01/20/18 Assessment/Plan - Problem List Patient Problems: All Active Problems Dementia (Acute) F03.90 ELEVATED WBC, LUNG INFILTRATES (Acute) Leukocytosis (Acute) D72.829 Pneumonia (Acute) J18.9 - Plan Plan: as per order sheet Nutritional Asmnt/Malnutr-PDOC - Dietary Evaluation Malnutrition Findings (Please click <Entered> for more info): Nutritional Asmnt/Malnutrition Start: 01/21/18 16: 32 Text: Status: Complete Freq: Document 01/21/18 16:32 AMITA (Rec: 01/21/18 16:48 AMITA [id number]) Nutritional Asmnt/Malnutrition Patient General Information Nutritional Screening High Risk Consult Diagnosis left lung infiltrate Pertinent Medical Hx/Surgical Hx dementia, HTN, hyperlipidemia per ER notes, no H&P at this time Subjective Information Pt seen sleeping at time of visit, not able to wake up for lunch. Per [employer], pt only had cereal and scrambled eggs this morning, not able to chew the [place] toast d/t weakness. Current Diet Order/ Nutrition Support low cholesterol 300gm Pertinent Medications D5-0.45ns, novolog, megace, theragran, piperacillin, vit A &D Pertinent Labs 01/21 BUN 32, Glucose 180, POC 142-261 01/20 A1c 5.1, POC 127-165 Nutritional Hx/Data Height 1.6 m Height (Calculated Centimeters) 160.0 Current Weight (lbs) 37.648 kg Weight (Calculated Kilograms) 37.6 Weight (Calculated Grams) 30259.2 [place] Body Weight 115 Body Mass Index (BMI) 14.7 Weight Status Underweight GI Symptoms GI Symptoms None Last BM none Difficult in: None Skin Integrity/Comment: reddened to vagina and coccyx Current %PO Poor (25-49%) Estimated Nutritional Goals Calories/Kcals/Kg 25-30 Kcals Calculated 0867-5813 Protein g/k Protein Calculated 52 Fluid: ml 1300-1560ml (1ml/kcal) Nutritional Problem 2. Problem Problem chewing difficulty Etiology weakness, sleepy Signs/Symptoms: pt need for mech soft diet 1. Problem Problem altered nutrition related lab values Etiology hyperglycemia Signs/Symptoms: Glucose 180, POC 127-261 Intervention/Recommendation Comments 1. Recommend Mech soft ground diet with Boost BID to increase nutrition intake. 2. Monitor PO intake, wt, labs and skin integrity 3. F/U as high risk in 2-3 days, 01/23-01/24 Expected Outcomes/Goals Expected Outcomes/Goals 1. PO intake to meet at least 75% of nutritional needs. 2. Wt stability, skin to remain intact, labs to approach WNL.
--- NOTE | 2018-02-10 17:47 | General Progress Note ---
Subjective - Review of Systems Service Date: 02/10/18 Subjective: eyes open but noninteractive, on vent Objective - Results Result Diagrams: 02/10/18 04:16 02/10/18 04:16 Recent Labs: Laboratory Last Values WBC 16.8 Th/cmm (4.8-10.8) H D 02/10/18 04:16 RBC 3.27 Mil/cmm (3.80-5.20) L 02/10/18 04:16 Hgb 10.2 gm/dL (12-16) L 02/10/18 04:16 Hct 29.8 % (41.0-60) L D 02/10/18 04:16 MCV 91.0 fl (81-100) 02/10/18 04:16 MCH 31.0 pg (27.0-31.0) 02/10/18 04:16 MCHC Differential 34.1 pg (28.0-36.0) 02/10/18 04:16 RDW 17.2 % (11.5-20.0) 02/10/18 04:16 Plt Count 61 Th/cmm (150-400) L 02/10/18 04:16 MPV 9.6 fl 02/10/18 04:16 Neutrophils % 87.3 % (40.0-80.0) H 02/05/18 07:00 Band Neutrophils % 16 % (0-10) H 02/10/18 04:16 Lymphocytes % 7.0 % (20.0-50.0) L 02/05/18 07:00 Monocytes % 4.3 % (2.0-10.0) 02/05/18 07:00 Eosinophils % 1.4 % (0.0-5.0) 02/05/18 07:00 Basophils % 0.0 % (0.0-2.0) 02/05/18 07:00 Neutrophils (Manual) 80 % (40-80) 02/10/18 04:16 Lymphocytes 2 % (20-50) L 02/10/18 04:16 Monocytes 2 % (2-10) 02/10/18 04:16 Eosinophils 0 % (0-5) 02/10/18 04:16 Basophils 0 % (0-3) 02/10/18 04:16 Toxic Granulation 1+ 02/09/18 04:17 Platelet Estimate DECREASED PLATELETS (NORMAL) 02/10/18 04:16 Platelet Morphology NORMAL (NORMAL) 02/10/18 04:16 RBC Morph Micro Appear NORMAL (NORMAL) 02/10/18 04:16 Eos Smear Source URINE 01/28/18 17:10 Eos Smear Total Cells NONE SEEN (NONE SEEN) 01/28/18 17:10 PT 10.4 SECONDS (9.5-11.5) 02/07/18 05:21 INR 1.00 (0.5-1.4) 02/07/18 05:21 PTT (Actin FS) 28.4 SECONDS (26.0-38.0) 02/07/18 05:21 Specimen Source Arterial 01/24/18 17:45 Sample Site Left Radial 01/24/18 17:45 pH 7.41 (7.35-7.45) 01/24/18 17:45 pCO2 32.0 mmHg (35.0-45.0) L 01/24/18 17:45 pO2 397.0 mmHg (80.0-100.0) H 01/24/18 17:45 HCO3 22.3 mEq/L (20.0-26.0) 01/24/18 17:45 Base Excess -3.5 mEq/L (-3.0-3.0) L 01/24/18 17:45 O2 Saturation 100.0 % (92.0-100.0) 01/24/18 17:45 Bebo Test YES 01/24/18 17:45 Vent Rate 14 01/24/18 17:45 Inspired O2 100 01/24/18 17:45 Tidal Volume 450 01/24/18 17:45 PEEP 5 01/24/18 17:45 Pressure (ins/psv/peep) NA 01/24/18 17:45 Critical Value E.BRIDGES 01/24/18 17:45 Sodium 125 mEq/L (136-145) L 02/10/18 04:16 Potassium 4.0 mEq/L (3.5-5.1) 02/10/18 04:16 Chloride 94 mEq/L (98-107) L 02/10/18 04:16 Carbon Dioxide 22.2 mEq/L (21.0-31.0) 02/10/18 04:16 Anion Gap 12.8 (7.0-16.0) 02/10/18 04:16 BUN 64 mg/dL (7-25) H 02/10/18 04:16 Creatinine 1.7 mg/dL (0.6-1.2) H 02/10/18 04:16 Est GFR ( Amer) TNP 02/10/18 04:16 Est GFR (Non-Af Amer) TNP 02/10/18 04:16 BUN/Creatinine Ratio 37.6 02/10/18 04:16 Glucose 124 mg/dL (70-105) H 02/10/18 04:16 POC Glucose 120 MG/DL (70 - 105) H 02/10/18 12:43 Hemoglobin A1c % 5.1 % (4.0-6.0) 01/20/18 12:15 Plasma/Ser Osmolality 287 mOsmol/kg (280-301) 01/28/18 17:45 Whole Bld Lactic Acid 1.50 mmol/L (0.60-1.99) 01/28/18 13:40 Uric Acid 5.3 mg/dL (2.3-6.6) 01/30/18 05:06 Calcium 7.7 mg/dL (8.6-10.3) L 02/10/18 04:16 Phosphorus 3.3 mg/dL (2.5-5.0) 01/30/18 05:06 Magnesium 1.8 mg/dL (1.9-2.7) L 02/09/18 04:17 Iron 54 ug/dL (27-139) 01/20/18 12:50 TIBC 159 ug/dL (250-450) L 01/20/18 12:50 Iron Saturation 34 % (15-55) 01/20/18 12:50 Unsaturated IBC 105 ug/dL (118-369) L 01/20/18 12:50 Ferritin 1230 ng/mL (15-150) H 01/20/18 12:50 Total Bilirubin 1.3 mg/dL (0.3-1.0) H 02/10/18 04:16 Direct Bilirubin 0.07 mg/dL (0.0-0.2) 01/20/18 12:30 AST 418 U/L (13-39) H 02/10/18 04:16 ALT 68 U/L (7-52) H 02/10/18 04:16 Alkaline Phosphatase 542 U/L (34-104) H 02/10/18 04:16 Troponin I 0.03 ng/mL (0.01-0.05) 01/20/18 12:15 C-Reactive Protein 4.3 mg/dL (0.0-0.9) H 01/20/18 12:50 B-Natriuretic Peptide 185.0 pg/mL (5.0-100.0) H 01/25/18 04:20 Total Protein 3.8 gm/dL (6.0-8.3) L 02/10/18 04:16 Albumin 2.5 gm/dL (3.7-5.3) L 02/10/18 04:16 Globulin 1.3 gm/dL 02/10/18 04:16 Albumin/Globulin Ratio 1.9 (1.0-1.8) H 02/10/18 04:16 Triglycerides 97 mg/dL (<150) 01/20/18 12:15 Cholesterol 195 mg/dL (<200) 01/20/18 12:15 LDL Cholesterol Direct 152 mg/dL (75-193) 01/20/18 12:15 HDL Cholesterol 40 mg/dL (23-92) 01/20/18 12:15 Lipase 108 U/L (11-82) H 01/20/18 12:15 Free T4 1.12 ng/dL (0.82-1.77) 01/20/18 12:50 TSH 0.06 uIU/ml (0.34-5.60) L 01/20/18 12:15 Urine Source [place] 01/28/18 17:10 Urine Color YELLOW 01/28/18 17:10 Urine Clarity CLOUDY (CLEAR) H 01/28/18 17:10 Urine pH 6.0 (4.6 - 8.0) 01/28/18 17:10 Ur Specific [place] 1.020 (1.005-1.030) 01/28/18 17:10 Urine Protein 100 mg/dL (NEGATIVE) H 01/28/18 17:10 Urine Glucose (UA) NEGATIVE mg/dL (NEGATIVE) 01/28/18 17:10 Urine Ketones NEGATIVE mg/dL (NEGATIVE) 01/28/18 17:10 Urine Blood MODERATE (NEGATIVE) H 01/28/18 17:10 Urine Nitrate NEGATIVE (NEGATIVE) 01/28/18 17:10 Urine Bilirubin NEGATIVE (NEGATIVE) 01/28/18 17:10 Urine Urobilinogen 0.2 E.U./dL (0.2 - 1.0) 01/28/18 17:10 Ur Leukocyte Esterase MODERATE (NEGATIVE) H 01/28/18 17:10 Urine RBC 5-10 /hpf (0-5) H 01/28/18 17:10 Urine WBC 10-25 /hpf (0-5) H 01/28/18 17:10 Ur Epithelial Cells OCCASIONAL /lpf (FEW) 01/28/18 17:10 Urine Bacteria OCCASIONAL /hpf (NONE SEEN) 01/28/18 17:10 Urine Yeast MANY /hpf (NONE SEEN) H 01/28/18 17:10 Ur Random Sodium 56 mmol/L 01/28/18 17:10 Urine Creatinine 39.0 mg/dl (28.0-217.0) 01/28/18 17:10 Stool Occult Blood POSITIVE (NEGATIVE) H 02/09/18 11:00 Vancomycin Trough 27.8 ug/mL (10-20) H 01/26/18 23:00 Random Vancomycin 22.6 ug/mL (5.0-40.0) 02/03/18 04:20 Blood Type O POSITIVE 02/03/18 16:58 Antibody Screen NEGATIVE 02/03/18 16:58 Crossmatch See Detail 02/03/18 16:58 - Physical Exam Vitals and I&O: Vital Signs Temp 96.7 F 02/10/18 08:00 Pulse 53 02/10/18 17:25 Resp 18 02/10/18 14:00 BP 130/68 02/10/18 14:00 Pulse Ox 100 02/10/18 17:25 Intake & Output 02/09/18 02/10/18 02/10/18 18:59 06:59 18:59 Intake Total 155.583 640.167 Output Total 170 Balance 155.583 470.167 Weight (lbs) 52.163 kg Intake: Intake, IV Amount 155.583 60.167 Furosemide 100 mg In 55.583 60.167 Sodium Chloride 0.9% 90 ml @ 5 mls/hr IV TITR [facility] Rx#:[id number] Tube Feeding 330 Other 250 Output: Urine 170 Other: # Bowel Movements 1 Stool Characteristics Liquid Liquid Green Green Weight Source Bedscale Active Medications: Current Medications Acetaminophen (Tylenol) 650 mg PO Q4H PRN PRN Reason: MILD PAIN OR TEMP >100.4 Stop: 03/21/18 16:07 Al Hydrox/Mg Hydrox/Simethicone (Maalox) 30 ml PO Q6HR PRN PRN Reason: GI DISTRESS Stop: 03/21/18 16:28 Albuterol/Ipratropium (Duoneb Neb) 3 ml HHN Q6HRT [facility] Stop: 03/30/18 00:59 Last Admin: 02/10/18 13:18 Dose: 3 ml Amlodipine Besylate (Norvasc) 10 mg PO DAILY [facility] Stop: 04/02/18 16:59 Last Admin: 02/10/18 09:22 Dose: Not Given Artificial Tears (Artificial Tears Ophth Soln) 1 drop EACH EYE Q2HR PRN PRN Reason: Dry Eye Stop: 03/27/18 09:28 Last Admin: 02/05/18 09:06 Dose: 1 drop Atorvastatin Calcium (Lipitor) 80 mg PO HS [facility] PRN Reason: Protocol Stop: 03/21/18 20:59 Last Admin: 02/09/18 21:02 Dose: 80 mg Bisacodyl (Dulcolax 10 Mg Supp) 10 mg RC DAILY PRN PRN Reason: Constipation Stop: 03/21/18 16:07 Budesonide (Pulmicort) 0.5 mg HHN BIDRT [facility] Stop: 04/01/18 18:59 Last Admin: 02/10/18 07:38 Dose: 0.5 mg Carvedilol (Coreg) 12.5 mg PO BID [facility] Stop: 03/21/18 16:59 Last Admin: 02/10/18 09:23 Dose: Not Given Chlorhexidine Gluconate (Peridex) 15 ml MM 0800,2000 [facility] Stop: 03/27/18 07:59 Last Admin: 02/10/18 09:22 Dose: 15 ml Dextrose (D50w) 50 ml IVP PRN PRN PRN Reason: HYPOGLYCEMIA Stop: 03/21/18 16:07 Diltiazem HCl (Cardizem) 60 mg PO Q8HR [facility] Stop: 04/10/18 20:59 Last Admin: 02/10/18 04:47 Dose: Not Given Enalaprilat (Vasotec) 2.5 mg IVP Q6HR PRN PRN Reason: SBP ABOVE 160 Stop: 03/25/18 11:59 Last Admin: 02/07/18 13:53 Dose: 2.5 mg Glucagon (Glucagen) 1 mg IVP PRN PRN PRN Reason: HYPOGLYCEMIA Stop: 03/21/18 16:25 Phenylephrine HCl 10 mg/ (Sodium Chloride) 250 mls @ 75 mls/hr IV TITR [facility]; 50 MCG/MIN PRN Reason: Protocol Stop: 03/25/18 20:14 Norepinephrine Bitartrate 4 mg (/ Sodium Chloride) 254 mls @ 15.24 mls/hr IV TITR [facility]; 4 MCG/MIN PRN Reason: Protocol Stop: 03/26/18 08:14 Last Titration: 02/06/18 18:30 Dose: 0 mcg/min, 0 mls/hr Furosemide 100 mg/ Sodium (Chloride) 100 mls @ 5 mls/hr IV TITR [facility] Stop: 04/08/18 13:29 Last Infusion: 02/10/18 06:53 Dose: 5 mls/hr Insulin Aspart (Novolog Insulin Sliding Scale) 0 units SUBQ Q6HR [facility] PRN Reason: Protocol Stop: 03/27/18 00:00 Last Admin: 02/10/18 13:05 Dose: Not Given Losartan Potassium (Cozaar) 100 mg PO DAILY [facility] Stop: 04/02/18 16:59 Last Admin: 02/10/18 09:23 Dose: Not Given Magnesium Hydroxide (Milk Of Magnesia) 30 ml PO DAILY PRN PRN Reason: IF NO BM IN TWO DAYS Stop: 03/21/18 16:07 Metoprolol Tartrate (Lopressor) 5 mg IV Q4H PRN PRN Reason: Tachycardia Stop: 03/25/18 12:29 Multivitamins/Vitamin C (Theragran) 1 tab PO DAILY [facility] Stop: 03/22/18 08:59 Last Admin: 02/10/18 09:21 Dose: 1 tab Ondansetron HCl (Zofran Odt) 4 mg PO Q6H PRN PRN Reason: Nausea / Vomiting Stop: 03/21/18 16:07 Pantoprazole Sodium (Protonix) 40 mg NG DAILY [facility] Stop: 03/28/18 16:59 Last Admin: 02/10/18 09:21 Dose: 40 mg Prednisone (Deltasone) 10 mg PO DAILY [facility] Stop: 03/22/18 08:59 Last Admin: 02/10/18 09:21 Dose: 10 mg Sodium Phosphate (Fleet Enema) 135 ml RC DAILY PRN PRN Reason: Constipation Stop: 03/21/18 16:07 Vitamin A (Vitamin A & D) 5 gm TP DAILY [facility] Stop: 03/22/18 08:59 Last Admin: 02/10/18 09:23 Dose: 5 gm General: Mild distress HEENT: Atraumatic, Mucous membr. moist/pink, Other (facial edema, trach) Neck: Supple, +2 carotid pulse wo bruit Cardiovascular: Regular rate, Normal S1, Normal S2 Lungs: Other (decreased BS, coarse rhonchi, some congestion) Abdomen: Bowel sounds, Soft, Distended Extremities: Edema Neurological: Sensation intact Skin: no Rash Psych/Mental Status: Other (stuporous) - Procedures Procedures: Procedures Procedure Code Date BYPASS TRACHEA TO CUTANEOUS WITH TRACH DEV, OPEN APPROACH [id number] 01/20/[address] GASTROSTOMY TUBE 83994 01/20/18 INCISION OF WINDPIPE 16285 01/20/18 INSERT EMERGENCY AIRWAY 09834 01/20/18 INSERTION OF ENDOTRACHEAL AIRWAY INTO TRACHEA, VIA OPENING [id number] 01/20/18 INSERTION OF FEEDING DEVICE INTO STOMACH, PERC APPROACH [id number] 01/20/18 RESPIRATORY VENTILATION, GREATER THAN 96 CONSECUTIVE HOURS [id number] 01/20/18 VENT MGMT INPAT INIT DAY 63527 01/20/18 Assessment/Plan - Problem List Patient Problems: All Active Problems Dementia (Acute) F03.90 ELEVATED WBC, LUNG INFILTRATES (Acute) Leukocytosis (Acute) D72.829 Pneumonia (Acute) J18.9 - Assessment Assessment: LAURENCE Anuric 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 A. Fib Anemia of acute on CD non Gap met acid yeast UTI Anasarca - Plan Plan: Lab - Result Diagrams 01/29/18 05:10 01/29/18 05:10 Current Medications Acetaminophen (Tylenol) 650 mg PO Q4H PRN PRN Reason: MILD PAIN OR TEMP >100.4 Stop: 03/21/18 16:07 Al Hydrox/Mg Hydrox/Simethicone (Maalox) 30 ml PO Q6HR PRN PRN Reason: GI DISTRESS Stop: 03/21/18 16:28 Albuterol/Ipratropium (Duoneb Neb) 3 ml HHN Q6HRT [facility] Stop: 03/30/18 00:59 Last Admin: 01/29/18 13:21 Dose: 3 ml Artificial Tears (Artificial Tears Ophth Soln) 1 drop EACH EYE Q2HR PRN PRN Reason: Dry Eye Stop: 03/27/18 09:28 Last Admin: 01/26/18 10:13 Dose: 1 drop Atorvastatin Calcium (Lipitor) 80 mg PO HS [facility] PRN Reason: Protocol Stop: 03/21/18 20:59 Last Admin: 01/28/18 20:32 Dose: 80 mg Bisacodyl (Dulcolax 10 Mg Supp) 10 mg RC DAILY PRN PRN Reason: Constipation Stop: 03/21/18 16:07 Carvedilol (Coreg) 12.5 mg PO BID [facility] Stop: 03/21/18 16:59 Last Admin: 01/29/18 08:10 Dose: 12.5 mg Chlorhexidine Gluconate (Peridex) 15 ml MM 0800,2000 [facility] Stop: 03/27/18 07:59 Last Admin: 01/29/18 08:00 Dose: 15 ml Dextrose (D50w) 50 ml IVP PRN PRN PRN Reason: HYPOGLYCEMIA Stop: 03/21/18 16:07 Diltiazem HCl (Cardizem) 60 mg PO Q6HR [facility] Stop: 03/21/18 17:59 Last Admin: 01/29/18 12:10 Dose: 60 mg Enalaprilat (Vasotec) 2.5 mg IVP Q6HR PRN PRN Reason: SBP ABOVE 160 Stop: 03/25/18 11:59 Last Admin: 01/24/18 15:13 Dose: 2.5 mg Glucagon (Glucagen) 1 mg IVP PRN PRN PRN Reason: HYPOGLYCEMIA Stop: 03/21/18 16:25 Meropenem 1 gm/ Sodium (Chloride) 100 mls @ 100 mls/hr IV Q12H [facility] Stop: 03/26/18 08:59 Last Infusion: 01/29/18 10:30 Dose: Infused Phenylephrine HCl 10 mg/ (Sodium Chloride) 250 mls @ 75 mls/hr IV TITR [facility]; 50 MCG/MIN PRN Reason: Protocol Stop: 03/25/18 20:14 Norepinephrine Bitartrate 4 mg (/ Sodium Chloride) 254 mls @ 15.24 mls/hr IV TITR [facility]; 4 MCG/MIN PRN Reason: Protocol Stop: 03/26/18 08:14 Last Titration: 01/27/18 00:22 Dose: 0 mcg/min, 0 mls/hr Potassium Chloride/Dextrose/Sod Cl (D5-0.9ns W/Kcl 20meq) 1,000 mls @ 75 mls/ hr IV .[id number] [facility] Stop: 03/28/18 14:06 Last Admin: 01/29/18 12:54 Dose: 125 mls/hr Insulin Aspart (Novolog Insulin Sliding Scale) 0 units SUBQ Q6HR [facility] PRN Reason: Protocol Stop: 03/27/18 00:00 Last Admin: 01/29/18 12:09 Dose: 2 units Magnesium Hydroxide (Milk Of Magnesia) 30 ml PO DAILY PRN PRN Reason: IF NO BM IN TWO DAYS Stop: 03/21/18 16:07 Megestrol Acetate (Megace) 400 mg PO BID [facility] Stop: 03/21/18 16:59 Last Admin: 01/29/18 08:10 Dose: 400 mg Metoprolol Tartrate (Lopressor) 5 mg IV Q4H PRN PRN Reason: Tachycardia Stop: 03/25/18 12:29 Miscellaneous (Vancomycin Iv Per Pharmacy) 1 ea MC PRN [facility] Stop: 03/25/18 17:59 Multivitamins/Vitamin C (Theragran) 1 tab PO DAILY [facility] Stop: 03/22/18 08:59 Last Admin: 01/29/18 08:10 Dose: 1 tab Ondansetron HCl (Zofran Odt) 4 mg PO Q6H PRN PRN Reason: Nausea / Vomiting Stop: 03/21/18 16:07 Pantoprazole Sodium (Protonix) 40 mg NG DAILY [facility] Stop: 03/28/18 16:59 Last Admin: 01/29/18 08:10 Dose: 40 mg Prednisone (Deltasone) 10 mg PO DAILY [facility] Stop: 03/22/18 08:59 Last Admin: 01/29/18 08:10 Dose: 10 mg Sodium Bicarbonate (Sodium Bicarbonate) 650 mg PO BID [facility] PRN Reason: Protocol Stop: 03/29/18 16:59 Last Admin: 01/29/18 08:10 Dose: 650 mg Sodium Phosphate (Fleet Enema) 135 ml RC DAILY PRN PRN Reason: Constipation Stop: 03/21/18 16:07 Vitamin A (Vitamin A & D) 5 gm TP DAILY [facility] Stop: 03/22/18 08:59 Last Admin: 01/29/ Lab - Result Diagrams 02/10/18 04:16 02/10/18 04:16 kidney fnc deteriorated to 64/1.7 still w/facial/peripheral edema poor response to Lasix drip, will DC UOP over [address] 100 ml resume dialysis in am due to anuria, hypervolemia, CHF started Diflucan on top of Meropenem WBC down to 16.8 CXR still w/ b/l small effusion, infiltrates f/u electrolytes, cbc Nutritional Asmnt/Malnutr-PDOC - Dietary Evaluation Malnutrition Findings (Please click <Entered> for more info): Nutritional Asmnt/Malnutrition Start: 01/21/18 16: 32 Text: Status: Complete Freq: Document 01/21/18 16:32 HEN (Rec: 01/21/18 16:48 LCHENG [email or web address]) Nutritional Asmnt/Malnutrition Patient General Information Nutritional Screening High Risk Consult Diagnosis left lung infiltrate Pertinent Medical Hx/Surgical Hx dementia, HTN, hyperlipidemia per ER notes, no H&P at this time Subjective Information Pt seen sleeping at time of visit, not able to wake up for lunch. Per POSTING CLERK, pt only had cereal and scrambled eggs this morning, not able to chew the [place] toast d/t weakness. Current Diet Order/ Nutrition Support low cholesterol 300gm Pertinent Medications D5-0.45ns, novolog, megace, theragran, piperacillin, vit A &D Pertinent Labs 01/21 BUN 32, Glucose 180, POC 142-261 01/20 A1c 5.1, POC 127-165 Nutritional Hx/Data Height 1.6 m Height (Calculated Centimeters) 160.0 Current Weight (lbs) 37.648 kg Weight (Calculated Kilograms) 37.6 Weight (Calculated Grams) 12569.2 [place] Body Weight 115 Body Mass Index (BMI) 14.7 Weight Status Underweight GI Symptoms GI Symptoms None Last BM none Difficult in: None Skin Integrity/Comment: reddened to vagina and coccyx Current %PO Poor (25-49%) Estimated Nutritional Goals Calories/Kcals/Kg 25-30 Kcals Calculated 2276-0154 Protein g/k Protein Calculated 52 Fluid: ml 1300-1560ml (1ml/kcal) Nutritional Problem 2. Problem Problem chewing difficulty Etiology weakness, sleepy Signs/Symptoms: pt need for mech soft diet 1. Problem Problem altered nutrition related lab values Etiology hyperglycemia Signs/Symptoms: Glucose 180, POC 127-261 Intervention/Recommendation Comments 1. Recommend Mech soft ground diet with Boost BID to increase nutrition intake. 2. Monitor PO intake, wt, labs and skin integrity 3. F/U as high risk in 2-3 days, 01/23-01/24 Expected Outcomes/Goals Expected Outcomes/Goals 1. PO intake to meet at least 75% of nutritional needs. 2. Wt stability, skin to remain intact, labs to approach WNL.
--- NOTE | 2018-02-10 18:42 | Infectious Disease Prog Note ---
Infectious Disease Subjective - Review of Systems Service Date: 02/10/18 Events since last encounter: None. Subjective: No fever, remains intubated orally. on the ventilator support. Infectious Disease Objective - Results Result Diagrams: 02/11/18 04:15 02/11/18 04:15 Recent Labs: Laboratory Last Values WBC 16.8 Th/cmm (4.8-10.8) H D 02/10/18 04:16 RBC 3.27 Mil/cmm (3.80-5.20) L 02/10/18 04:16 Hgb 10.2 gm/dL (12-16) L 02/10/18 04:16 Hct 29.8 % (41.0-60) L D 02/10/18 04:16 MCV 91.0 fl (81-100) 02/10/18 04:16 MCH 31.0 pg (27.0-31.0) 02/10/18 04:16 MCHC Differential 34.1 pg (28.0-36.0) 02/10/18 04:16 RDW 17.2 % (11.5-20.0) 02/10/18 04:16 Plt Count 61 Th/cmm (150-400) L 02/10/18 04:16 MPV 9.6 fl 02/10/18 04:16 Neutrophils % 87.3 % (40.0-80.0) H 02/05/18 07:00 Band Neutrophils % 16 % (0-10) H 02/10/18 04:16 Lymphocytes % 7.0 % (20.0-50.0) L 02/05/18 07:00 Monocytes % 4.3 % (2.0-10.0) 02/05/18 07:00 Eosinophils % 1.4 % (0.0-5.0) 02/05/18 07:00 Basophils % 0.0 % (0.0-2.0) 02/05/18 07:00 Neutrophils (Manual) 80 % (40-80) 02/10/18 04:16 Lymphocytes 2 % (20-50) L 02/10/18 04:16 Monocytes 2 % (2-10) 02/10/18 04:16 Eosinophils 0 % (0-5) 02/10/18 04:16 Basophils 0 % (0-3) 02/10/18 04:16 Toxic Granulation 1+ 02/09/18 04:17 Platelet Estimate DECREASED PLATELETS (NORMAL) 02/10/18 04:16 Platelet Morphology NORMAL (NORMAL) 02/10/18 04:16 RBC Morph Micro Appear NORMAL (NORMAL) 02/10/18 04:16 Eos Smear Source URINE 01/28/18 17:10 Eos Smear Total Cells NONE SEEN (NONE SEEN) 01/28/18 17:10 PT 10.4 SECONDS (9.5-11.5) 02/07/18 05:21 INR 1.00 (0.5-1.4) 02/07/18 05:21 PTT (Actin FS) 28.4 SECONDS (26.0-38.0) 02/07/18 05:21 Specimen Source Arterial 01/24/18 17:45 Sample Site Left Radial 01/24/18 17:45 pH 7.41 (7.35-7.45) 01/24/18 17:45 pCO2 32.0 mmHg (35.0-45.0) L 01/24/18 17:45 pO2 397.0 mmHg (80.0-100.0) H 01/24/18 17:45 HCO3 22.3 mEq/L (20.0-26.0) 01/24/18 17:45 Base Excess -3.5 mEq/L (-3.0-3.0) L 01/24/18 17:45 O2 Saturation 100.0 % (92.0-100.0) 01/24/18 17:45 Bebo Test YES 01/24/18 17:45 Vent Rate 14 01/24/18 17:45 Inspired O2 100 01/24/18 17:45 Tidal Volume 450 01/24/18 17:45 PEEP 5 01/24/18 17:45 Pressure (ins/psv/peep) NA 01/24/18 17:45 Critical Value E.BRIDGES 01/24/18 17:45 Sodium 125 mEq/L (136-145) L 02/10/18 04:16 Potassium 4.0 mEq/L (3.5-5.1) 02/10/18 04:16 Chloride 94 mEq/L (98-107) L 02/10/18 04:16 Carbon Dioxide 22.2 mEq/L (21.0-31.0) 02/10/18 04:16 Anion Gap 12.8 (7.0-16.0) 02/10/18 04:16 BUN 64 mg/dL (7-25) H 02/10/18 04:16 Creatinine 1.7 mg/dL (0.6-1.2) H 02/10/18 04:16 Est GFR ( Amer) TNP 02/10/18 04:16 Est GFR (Non-Af Amer) TNP 02/10/18 04:16 BUN/Creatinine Ratio 37.6 02/10/18 04:16 Glucose 124 mg/dL (70-105) H 02/10/18 04:16 POC Glucose 120 MG/DL (70 - 105) H 02/10/18 12:43 Hemoglobin A1c % 5.1 % (4.0-6.0) 01/20/18 12:15 Plasma/Ser Osmolality 287 mOsmol/kg (280-301) 01/28/18 17:45 Whole Bld Lactic Acid 1.50 mmol/L (0.60-1.99) 01/28/18 13:40 Uric Acid 5.3 mg/dL (2.3-6.6) 01/30/18 05:06 Calcium 7.7 mg/dL (8.6-10.3) L 02/10/18 04:16 Phosphorus 3.3 mg/dL (2.5-5.0) 01/30/18 05:06 Magnesium 1.8 mg/dL (1.9-2.7) L 02/09/18 04:17 Iron 54 ug/dL (27-139) 01/20/18 12:50 TIBC 159 ug/dL (250-450) L 01/20/18 12:50 Iron Saturation 34 % (15-55) 01/20/18 12:50 Unsaturated IBC 105 ug/dL (118-369) L 01/20/18 12:50 Ferritin 1230 ng/mL (15-150) H 01/20/18 12:50 Total Bilirubin 1.3 mg/dL (0.3-1.0) H 02/10/18 04:16 Direct Bilirubin 0.07 mg/dL (0.0-0.2) 01/20/18 12:30 AST 418 U/L (13-39) H 02/10/18 04:16 ALT 68 U/L (7-52) H 02/10/18 04:16 Alkaline Phosphatase 542 U/L (34-104) H 02/10/18 04:16 Troponin I 0.03 ng/mL (0.01-0.05) 01/20/18 12:15 C-Reactive Protein 4.3 mg/dL (0.0-0.9) H 01/20/18 12:50 B-Natriuretic Peptide 185.0 pg/mL (5.0-100.0) H 01/25/18 04:20 Total Protein 3.8 gm/dL (6.0-8.3) L 02/10/18 04:16 Albumin 2.5 gm/dL (3.7-5.3) L 02/10/18 04:16 Globulin 1.3 gm/dL 02/10/18 04:16 Albumin/Globulin Ratio 1.9 (1.0-1.8) H 02/10/18 04:16 Triglycerides 97 mg/dL (<150) 01/20/18 12:15 Cholesterol 195 mg/dL (<200) 01/20/18 12:15 LDL Cholesterol Direct 152 mg/dL (75-193) 01/20/18 12:15 HDL Cholesterol 40 mg/dL (23-92) 01/20/18 12:15 Lipase 108 U/L (11-82) H 01/20/18 12:15 Free T4 1.12 ng/dL (0.82-1.77) 01/20/18 12:50 TSH 0.06 uIU/ml (0.34-5.60) L 01/20/18 12:15 Urine Source [place] 01/28/18 17:10 Urine Color YELLOW 01/28/18 17:10 Urine Clarity CLOUDY (CLEAR) H 01/28/18 17:10 Urine pH 6.0 (4.6 - 8.0) 01/28/18 17:10 Ur Specific [place] 1.020 (1.005-1.030) 01/28/18 17:10 Urine Protein 100 mg/dL (NEGATIVE) H 01/28/18 17:10 Urine Glucose (UA) NEGATIVE mg/dL (NEGATIVE) 01/28/18 17:10 Urine Ketones NEGATIVE mg/dL (NEGATIVE) 01/28/18 17:10 Urine Blood MODERATE (NEGATIVE) H 01/28/18 17:10 Urine Nitrate NEGATIVE (NEGATIVE) 01/28/18 17:10 Urine Bilirubin NEGATIVE (NEGATIVE) 01/28/18 17:10 Urine Urobilinogen 0.2 E.U./dL (0.2 - 1.0) 01/28/18 17:10 Ur Leukocyte Esterase MODERATE (NEGATIVE) H 01/28/18 17:10 Urine RBC 5-10 /hpf (0-5) H 01/28/18 17:10 Urine WBC 10-25 /hpf (0-5) H 01/28/18 17:10 Ur Epithelial Cells OCCASIONAL /lpf (FEW) 01/28/18 17:10 Urine Bacteria OCCASIONAL /hpf (NONE SEEN) 01/28/18 17:10 Urine Yeast MANY /hpf (NONE SEEN) H 01/28/18 17:10 Ur Random Sodium 56 mmol/L 01/28/18 17:10 Urine Creatinine 39.0 mg/dl (28.0-217.0) 01/28/18 17:10 Stool Occult Blood POSITIVE (NEGATIVE) H 02/09/18 11:00 Vancomycin Trough 27.8 ug/mL (10-20) H 01/26/18 23:00 Random Vancomycin 22.6 ug/mL (5.0-40.0) 02/03/18 04:20 Blood Type O POSITIVE 02/03/18 16:58 Antibody Screen NEGATIVE 02/03/18 16:58 Crossmatch See Detail 02/03/18 16:58 - Physical Exam Vitals and I&O: Vital Signs Temp 96.4 F 02/10/18 16:00 Pulse 57 02/10/18 18:00 Resp 18 02/10/18 18:00 BP 105/57 02/10/18 18:00 Pulse Ox 100 02/10/18 18:00 Intake & Output 02/09/18 02/10/18 02/10/18 18:59 06:59 18:59 Intake Total 155.583 640.167 460 Output Total 170 50 Balance 155.583 470.167 410 Weight (lbs) 52.163 kg 52.163 kg Intake: Intake, IV Amount 155.583 60.167 Furosemide 100 mg In 55.583 60.167 Sodium Chloride 0.9% 90 ml @ 5 mls/hr IV TITR HARRIET Rx#:[id number] Tube Feeding 330 360 Other 250 100 Output: Urine 170 50 Other: # Bowel Movements 1 0 Stool Characteristics Liquid Liquid Green Green Weight Source Bedscale Bedscale Active Medications: Current Medications Acetaminophen (Tylenol) 650 mg PO Q4H PRN PRN Reason: MILD PAIN OR TEMP >100.4 Stop: 03/21/18 16:07 Al Hydrox/Mg Hydrox/Simethicone (Maalox) 30 ml PO Q6HR PRN PRN Reason: GI DISTRESS Stop: 03/21/18 16:28 Albuterol/Ipratropium (Duoneb Neb) 3 ml HHN Q6HRT [facility] Stop: 03/30/18 00:59 Last Admin: 02/10/18 13:18 Dose: 3 ml Artificial Tears (Artificial Tears Ophth Soln) 1 drop EACH EYE Q2HR PRN PRN Reason: Dry Eye Stop: 03/27/18 09:28 Last Admin: 02/05/18 09:06 Dose: 1 drop Atorvastatin Calcium (Lipitor) 80 mg PO HS [facility] PRN Reason: Protocol Stop: 03/21/18 20:59 Last Admin: 02/09/18 21:02 Dose: 80 mg Bisacodyl (Dulcolax 10 Mg Supp) 10 mg RC DAILY PRN PRN Reason: Constipation Stop: 03/21/18 16:07 Budesonide (Pulmicort) 0.5 mg HHN BIDRT [facility] Stop: 04/01/18 18:59 Last Admin: 02/10/18 07:38 Dose: 0.5 mg Carvedilol (Coreg) 12.5 mg PO BID [facility] Stop: 03/21/18 16:59 Last Admin: 02/10/18 09:23 Dose: Not Given Chlorhexidine Gluconate (Peridex) 15 ml MM 0800,2000 [facility] Stop: 03/27/18 07:59 Last Admin: 02/10/18 09:22 Dose: 15 ml Dextrose (D50w) 50 ml IVP PRN PRN PRN Reason: HYPOGLYCEMIA Stop: 03/21/18 16:07 Diltiazem HCl (Cardizem) 60 mg PO Q8HR [facility] Stop: 04/10/18 20:59 Last Admin: 02/10/18 13:00 Dose: Not Given Enalaprilat (Vasotec) 2.5 mg IVP Q6HR PRN PRN Reason: SBP ABOVE 160 Stop: 03/25/18 11:59 Last Admin: 02/07/18 13:53 Dose: 2.5 mg Glucagon (Glucagen) 1 mg IVP PRN PRN PRN Reason: HYPOGLYCEMIA Stop: 03/21/18 16:25 Phenylephrine HCl 10 mg/ (Sodium Chloride) 250 mls @ 75 mls/hr IV TITR HARRIET; 50 MCG/MIN PRN Reason: Protocol Stop: 03/25/18 20:14 Norepinephrine Bitartrate 4 mg (/ Sodium Chloride) 254 mls @ 15.24 mls/hr IV TITR HARRIET; 4 MCG/MIN PRN Reason: Protocol Stop: 03/26/18 08:14 Last Titration: 02/06/18 18:30 Dose: 0 mcg/min, 0 mls/hr Insulin Aspart (Novolog Insulin Sliding Scale) 0 units SUBQ Q6HR [facility] PRN Reason: Protocol Stop: 03/27/18 00:00 Last Admin: 02/10/18 13:05 Dose: Not Given Losartan Potassium (Cozaar) 100 mg PO DAILY [facility] Stop: 04/02/18 16:59 Last Admin: 02/10/18 09:23 Dose: Not Given Magnesium Hydroxide (Milk Of Magnesia) 30 ml PO DAILY PRN PRN Reason: IF NO BM IN TWO DAYS Stop: 03/21/18 16:07 Metoprolol Tartrate (Lopressor) 5 mg IV Q4H PRN PRN Reason: Tachycardia Stop: 03/25/18 12:29 Multivitamins/Vitamin C (Theragran) 1 tab PO DAILY [facility] Stop: 03/22/18 08:59 Last Admin: 02/10/18 09:21 Dose: 1 tab Ondansetron HCl (Zofran Odt) 4 mg PO Q6H PRN PRN Reason: Nausea / Vomiting Stop: 03/21/18 16:07 Pantoprazole Sodium (Protonix) 40 mg NG DAILY [facility] Stop: 03/28/18 16:59 Last Admin: 02/10/18 09:21 Dose: 40 mg Prednisone (Deltasone) 10 mg PO DAILY [facility] Stop: 03/22/18 08:59 Last Admin: 02/10/18 09:21 Dose: 10 mg Sodium Phosphate (Fleet Enema) 135 ml RC DAILY PRN PRN Reason: Constipation Stop: 03/21/18 16:07 Vitamin A (Vitamin A & D) 5 gm TP DAILY [facility] Stop: 03/22/18 08:59 Last Admin: 02/10/18 09:23 Dose: 5 gm General: well developed, cachectic HEENT: atraumatic, normocephalic, moist mucous membrane Neck: supple, no thyromegaly Cardiovascular: S1S2, regular Lungs: crackles Abdomen: soft, no tender, no distended, no mass, no hepatomegaly Extremities: no cyanosis, no clubbing, no edema Neurological: other (Unresponsive.) Skin: intact - Procedures Procedures: Procedures Procedure Code Date BYPASS TRACHEA TO CUTANEOUS WITH TRACH DEV, OPEN APPROACH [id number] 01/20/[address] GASTROSTOMY TUBE 01297 01/20/18 INCISION OF WINDPIPE 41803 01/20/18 INSERT EMERGENCY AIRWAY 16007 01/20/18 INSERTION OF ENDOTRACHEAL AIRWAY INTO TRACHEA, VIA OPENING [id number] 01/20/18 INSERTION OF FEEDING DEVICE INTO STOMACH, PERC APPROACH [id number] 01/20/18 RESPIRATORY VENTILATION, GREATER THAN 96 CONSECUTIVE HOURS [id number] 01/20/18 VENT MGMT INPAT INIT DAY 55154 01/20/18 Infectious Disease Assmt/Plan - Problem List Patient Problems: All Active Problems Dementia (Acute) F03.90 ELEVATED WBC, LUNG INFILTRATES (Acute) Leukocytosis (Acute) D72.829 Pneumonia (Acute) J18.9 - Assessment Assessment: 1. Leukocytosis. suspect sepsis. 2. Pneumonia. L lung. 3. Dementia 4. S/p CP arrest. 5. Anoxic encephalopathy. 6. VDRF. 7. Increaing creatinine. LAURENCE. oliguric. 8. pulmonary aspergillosis. - Plan Plan: Continue meropenem. Continue voriconazole po ( not IV). sepsis w/u. Nutritional Asmnt/Malnutr-PDOC - Dietary Evaluation Malnutrition Findings (Please click <Entered> for more info): Nutritional Asmnt/Malnutrition Start: 01/21/18 16: 32 Text: Status: Complete Freq: Document 01/21/18 16:32 HENG (Rec: 01/21/18 16:48 [email or web address]) Nutritional Asmnt/Malnutrition Patient General Information Nutritional Screening High Risk Consult Diagnosis left lung infiltrate Pertinent Medical Hx/Surgical Hx dementia, HTN, hyperlipidemia per ER notes, no H&P at this time Subjective Information Pt seen sleeping at time of visit, not able to wake up for lunch. Per [employer], pt only had cereal and scrambled eggs this morning, not able to chew the [place] toast d/t weakness. Current Diet Order/ Nutrition Support low cholesterol 300gm Pertinent Medications D5-0.45ns, novolog, megace, theragran, piperacillin, vit A &D Pertinent Labs 01/21 BUN 32, Glucose 180, POC 142-261 01/20 A1c 5.1, POC 127-165 Nutritional Hx/Data Height 1.6 m Height (Calculated Centimeters) 160.0 Current Weight (lbs) 37.648 kg Weight (Calculated Kilograms) 37.6 Weight (Calculated Grams) 23933.2 [place] Body Weight 115 Body Mass Index (BMI) 14.7 Weight Status Underweight GI Symptoms GI Symptoms None Last BM none Difficult in: None Skin Integrity/Comment: reddened to vagina and coccyx Current %PO Poor (25-49%) Estimated Nutritional Goals Calories/Kcals/Kg 25-30 Kcals Calculated 9625-5001 Protein g/k Protein Calculated 52 Fluid: ml 1300-1560ml (1ml/kcal) Nutritional Problem 2. Problem Problem chewing difficulty Etiology weakness, sleepy Signs/Symptoms: pt need for mech soft diet 1. Problem Problem altered nutrition related lab values Etiology hyperglycemia Signs/Symptoms: Glucose 180, POC 127-261 Intervention/Recommendation Comments 1. Recommend Mech soft ground diet with Boost BID to increase nutrition intake. 2. Monitor PO intake, wt, labs and skin integrity 3. F/U as high risk in 2-3 days, 01/23-01/24 Expected Outcomes/Goals Expected Outcomes/Goals 1. PO intake to meet at least 75% of nutritional needs. 2. Wt stability, skin to remain intact, labs to approach WNL.
[2018-02-11] MEDS: INSULIN ASPART SLIDING SCALE 100 UNITS/ML UNIT SUBQ SCH ×4 (00:27→17:21)
[2018-02-11] MEDS: Albuterol/Ipratropium Neb 3 ML AERS HHN SCH ×4 (01:33→18:50)
[2018-02-11] MEDS: Diltiazem 30 mg Tab PO SCH ×3 (04:04→21:06)
[2018-02-11 04:43] LABS: MANUAL DIFF REQUIRED? YES
[2018-02-11 04:56] LABS: HEMATOCRIT 28.3 % (41.0-60); HEMOGLOBIN 9.7 gm/dL (12-16); MEAN CELL VOLUME 90.6 fl (81-100); MEAN CORPUSCULAR HGB CONC 34.3 pg (28.0-36.0); PLATELET COUNT 52 Th/cmm (150-400); RED BLOOD COUNT 3.12 Mil/cmm (3.80-5.20); RED CELL DISTRIBUTION WIDTH 17.6 % (11.5-20.0)
[2018-02-11 05:06] LABS: ANION GAP 13.4 (7.0-16.0); BUN - UREA NITROGEN 75 mg/dL (7-25); CALCIUM SERUM 7.5 mg/dL (8.6-10.3); CARBON DIOXIDE 21.1 mEq/L (21.0-31.0); CHLORIDE 94 mEq/L (98-107); CREATININE - SERUM 1.8 mg/dL (0.6-1.2); GLUCOSE 132 mg/dL (70-105); POTASSIUM SERUM 4.5 mEq/L (3.5-5.1); SODIUM SERUM 124 mEq/L (136-145)
[2018-02-11 05:16] LABS: WHITE BLOOD COUNT 14.1 Th/cmm (4.8-10.8)
[2018-02-11 06:38] LABS: BAND NEUTROPHILE 8 % (0-10); LYMPHOCYTE 4 % (20-50); MONOCYTE 3 % (2-10); NEUTROPHILS 85 % (40-80); TOTAL CELLS COUNTED 100
[2018-02-11 06:39] LABS: PLATELET ESTIMATE DECREASED PLATELETS (NORMAL)
[2018-02-11] MEDS: Budesonide 0.5 Mg/2 mL Ud HHN SCH ×2 (07:29→18:51)
[2018-02-11] MEDS: Chlorhexidine Gluconate 0.12% 15mL Mouthwash MM SCH ×2 (08:30→20:09)
[2018-02-11] MEDS: Multivitamin Tab PO SCH (09:18)
[2018-02-11] MEDS: Pantoprazole 40 mg/Packet NG SCH (09:19)
[2018-02-11] MEDS: Vitamin A/Vitamin D 5 gm Packet TP SCH (09:19)
--- NOTE | 2018-02-11 11:30 | General Progress Note ---
Subjective - Review of Systems Service Date: 02/11/18 Subjective: pt is on vent no acute distress Objective - Results Result Diagrams: 02/11/18 04:15 02/11/18 04:15 Recent Labs: Laboratory Last Values WBC 14.1 Th/cmm (4.8-10.8) H 02/11/18 04:15 RBC 3.12 Mil/cmm (3.80-5.20) L 02/11/18 04:15 Hgb 9.7 gm/dL (12-16) L 02/11/18 04:15 Hct 28.3 % (41.0-60) L 02/11/18 04:15 MCV 90.6 fl (81-100) 02/11/18 04:15 MCH 31.0 pg (27.0-31.0) 02/11/18 04:15 MCHC Differential 34.3 pg (28.0-36.0) 02/11/18 04:15 RDW 17.6 % (11.5-20.0) 02/11/18 04:15 Plt Count 52 Th/cmm (150-400) L 02/11/18 04:15 MPV 9.0 fl 02/11/18 04:15 Neutrophils % 87.3 % (40.0-80.0) H 02/05/18 07:00 Band Neutrophils % 8 % (0-10) 02/11/18 04:15 Lymphocytes % 7.0 % (20.0-50.0) L 02/05/18 07:00 Monocytes % 4.3 % (2.0-10.0) 02/05/18 07:00 Eosinophils % 1.4 % (0.0-5.0) 02/05/18 07:00 Basophils % 0.0 % (0.0-2.0) 02/05/18 07:00 Neutrophils (Manual) 85 % (40-80) H 02/11/18 04:15 Lymphocytes 4 % (20-50) L 02/11/18 04:15 Monocytes 3 % (2-10) 02/11/18 04:15 Eosinophils 0 % (0-5) 02/10/18 04:16 Basophils 0 % (0-3) 02/10/18 04:16 Toxic Granulation 1+ 02/09/18 04:17 Platelet Estimate DECREASED PLATELETS (NORMAL) 02/11/18 04:15 Platelet Morphology NORMAL (NORMAL) 02/10/18 04:16 RBC Morph Micro Appear NORMAL (NORMAL) 02/10/18 04:16 Eos Smear Source URINE 01/28/18 17:10 Eos Smear Total Cells NONE SEEN (NONE SEEN) 01/28/18 17:10 PT 10.4 SECONDS (9.5-11.5) 02/07/18 05:21 INR 1.00 (0.5-1.4) 02/07/18 05:21 PTT (Actin FS) 28.4 SECONDS (26.0-38.0) 02/07/18 05:21 Specimen Source Arterial 01/24/18 17:45 Sample Site Left Radial 01/24/18 17:45 pH 7.41 (7.35-7.45) 01/24/18 17:45 pCO2 32.0 mmHg (35.0-45.0) L 01/24/18 17:45 pO2 397.0 mmHg (80.0-100.0) H 01/24/18 17:45 HCO3 22.3 mEq/L (20.0-26.0) 01/24/18 17:45 Base Excess -3.5 mEq/L (-3.0-3.0) L 01/24/18 17:45 O2 Saturation 100.0 % (92.0-100.0) 01/24/18 17:45 Bebo Test YES 01/24/18 17:45 Vent Rate 14 01/24/18 17:45 Inspired O2 100 01/24/18 17:45 Tidal Volume 450 01/24/18 17:45 PEEP 5 01/24/18 17:45 Pressure (ins/psv/peep) NA 01/24/18 17:45 Critical Value E.BRIDGES 01/24/18 17:45 Sodium 124 mEq/L (136-145) L 02/11/18 04:15 Potassium 4.5 mEq/L (3.5-5.1) 02/11/18 04:15 Chloride 94 mEq/L (98-107) L 02/11/18 04:15 Carbon Dioxide 21.1 mEq/L (21.0-31.0) 02/11/18 04:15 Anion Gap 13.4 (7.0-16.0) 02/11/18 04:15 BUN 75 mg/dL (7-25) H 02/11/18 04:15 Creatinine 1.8 mg/dL (0.6-1.2) H 02/11/18 04:15 Est GFR ( Amer) TNP 02/11/18 04:15 Est GFR (Non-Af Amer) TNP 02/11/18 04:15 BUN/Creatinine Ratio 41.7 02/11/18 04:15 Glucose 132 mg/dL (70-105) H 02/11/18 04:15 POC Glucose 129 MG/DL (70 - 105) H 02/11/18 05:20 Hemoglobin A1c % 5.1 % (4.0-6.0) 01/20/18 12:15 Plasma/Ser Osmolality 287 mOsmol/kg (280-301) 01/28/18 17:45 Whole Bld Lactic Acid 1.50 mmol/L (0.60-1.99) 01/28/18 13:40 Uric Acid 5.3 mg/dL (2.3-6.6) 01/30/18 05:06 Calcium 7.5 mg/dL (8.6-10.3) L 02/11/18 04:15 Phosphorus 3.3 mg/dL (2.5-5.0) 01/30/18 05:06 Magnesium 1.8 mg/dL (1.9-2.7) L 02/09/18 04:17 Iron 54 ug/dL (27-139) 01/20/18 12:50 TIBC 159 ug/dL (250-450) L 01/20/18 12:50 Iron Saturation 34 % (15-55) 01/20/18 12:50 Unsaturated IBC 105 ug/dL (118-369) L 01/20/18 12:50 Ferritin 1230 ng/mL (15-150) H 01/20/18 12:50 Total Bilirubin 1.3 mg/dL (0.3-1.0) H 02/10/18 04:16 Direct Bilirubin 0.07 mg/dL (0.0-0.2) 01/20/18 12:30 AST 418 U/L (13-39) H 02/10/18 04:16 ALT 68 U/L (7-52) H 02/10/18 04:16 Alkaline Phosphatase 542 U/L (34-104) H 02/10/18 04:16 Troponin I 0.03 ng/mL (0.01-0.05) 01/20/18 12:15 C-Reactive Protein 4.3 mg/dL (0.0-0.9) H 01/20/18 12:50 B-Natriuretic Peptide 185.0 pg/mL (5.0-100.0) H 01/25/18 04:20 Total Protein 3.8 gm/dL (6.0-8.3) L 02/10/18 04:16 Albumin 2.5 gm/dL (3.7-5.3) L 02/10/18 04:16 Globulin 1.3 gm/dL 02/10/18 04:16 Albumin/Globulin Ratio 1.9 (1.0-1.8) H 02/10/18 04:16 Triglycerides 97 mg/dL (<150) 01/20/18 12:15 Cholesterol 195 mg/dL (<200) 01/20/18 12:15 LDL Cholesterol Direct 152 mg/dL (75-193) 01/20/18 12:15 HDL Cholesterol 40 mg/dL (23-92) 01/20/18 12:15 Lipase 108 U/L (11-82) H 01/20/18 12:15 Free T4 1.12 ng/dL (0.82-1.77) 01/20/18 12:50 TSH 0.06 uIU/ml (0.34-5.60) L 01/20/18 12:15 Urine Source [place] 01/28/18 17:10 Urine Color YELLOW 01/28/18 17:10 Urine Clarity CLOUDY (CLEAR) H 01/28/18 17:10 Urine pH 6.0 (4.6 - 8.0) 01/28/18 17:10 Ur Specific [place] 1.020 (1.005-1.030) 01/28/18 17:10 Urine Protein 100 mg/dL (NEGATIVE) H 01/28/18 17:10 Urine Glucose (UA) NEGATIVE mg/dL (NEGATIVE) 01/28/18 17:10 Urine Ketones NEGATIVE mg/dL (NEGATIVE) 01/28/18 17:10 Urine Blood MODERATE (NEGATIVE) H 01/28/18 17:10 Urine Nitrate NEGATIVE (NEGATIVE) 01/28/18 17:10 Urine Bilirubin NEGATIVE (NEGATIVE) 01/28/18 17:10 Urine Urobilinogen 0.2 E.U./dL (0.2 - 1.0) 01/28/18 17:10 Ur Leukocyte Esterase MODERATE (NEGATIVE) H 01/28/18 17:10 Urine RBC 5-10 /hpf (0-5) H 01/28/18 17:10 Urine WBC 10-25 /hpf (0-5) H 01/28/18 17:10 Ur Epithelial Cells OCCASIONAL /lpf (FEW) 01/28/18 17:10 Urine Bacteria OCCASIONAL /hpf (NONE SEEN) 01/28/18 17:10 Urine Yeast MANY /hpf (NONE SEEN) H 01/28/18 17:10 Ur Random Sodium 56 mmol/L 01/28/18 17:10 Urine Creatinine 39.0 mg/dl (28.0-217.0) 01/28/18 17:10 Stool Occult Blood POSITIVE (NEGATIVE) H 02/09/18 11:00 Vancomycin Trough 27.8 ug/mL (10-20) H 01/26/18 23:00 Random Vancomycin 22.6 ug/mL (5.0-40.0) 02/03/18 04:20 Blood Type O POSITIVE 02/03/18 16:58 Antibody Screen NEGATIVE 02/03/18 16:58 Crossmatch See Detail 02/03/18 16:58 - Physical Exam Vitals and I&O: Vital Signs Temp 96.7 F 02/11/18 08:00 Pulse 71 02/11/18 11:25 Resp 21 02/11/18 11:00 BP 110/49 02/11/18 11:00 Pulse Ox 100 02/11/18 11:25 Intake & Output 02/10/18 02/11/18 02/11/18 18:59 06:59 18:59 Intake Total 460 560 Output Total 50 70 Balance 410 490 Weight (lbs) 52.163 kg 52.163 kg Intake: Tube Feeding 360 360 Other 100 200 Output: Urine 50 70 Other: # Bowel Movements 0 2 Stool Characteristics Soft Soft Brown Brown Weight Source Bedscale Bedscale Active Medications: Current Medications Acetaminophen (Tylenol) 650 mg PO Q4H PRN PRN Reason: MILD PAIN OR TEMP >100.4 Stop: 03/21/18 16:07 Al Hydrox/Mg Hydrox/Simethicone (Maalox) 30 ml PO Q6HR PRN PRN Reason: GI DISTRESS Stop: 03/21/18 16:28 Albuterol/Ipratropium (Duoneb Neb) 3 ml HHN Q6HRT [facility] Stop: 03/30/18 00:59 Last Admin: 02/11/18 07:30 Dose: 3 ml Artificial Tears (Artificial Tears Ophth Soln) 1 drop EACH EYE Q2HR PRN PRN Reason: Dry Eye Stop: 03/27/18 09:28 Last Admin: 02/05/18 09:06 Dose: 1 drop Atorvastatin Calcium (Lipitor) 80 mg PO HS HARRIET PRN Reason: Protocol Stop: 03/21/18 20:59 Last Admin: 02/10/18 21:10 Dose: 80 mg Bisacodyl (Dulcolax 10 Mg Supp) 10 mg RC DAILY PRN PRN Reason: Constipation Stop: 03/21/18 16:07 Budesonide (Pulmicort) 0.5 mg HHN BIDRT [facility] Stop: 04/01/18 18:59 Last Admin: 02/11/18 07:29 Dose: 0.5 mg Carvedilol (Coreg) 12.5 mg PO BID [facility] Stop: 03/21/18 16:59 Last Admin: 02/11/18 09:22 Dose: Not Given Chlorhexidine Gluconate (Peridex) 15 ml MM 0800,2000 [facility] Stop: 03/27/18 07:59 Last Admin: 02/11/18 08:30 Dose: 15 ml Dextrose (D50w) 50 ml IVP PRN PRN PRN Reason: HYPOGLYCEMIA Stop: 03/21/18 16:07 Diltiazem HCl (Cardizem) 60 mg PO Q8HR [facility] Stop: 04/10/18 20:59 Last Admin: 02/11/18 04:04 Dose: Not Given Enalaprilat (Vasotec) 2.5 mg IVP Q6HR PRN PRN Reason: SBP ABOVE 160 Stop: 03/25/18 11:59 Last Admin: 02/07/18 13:53 Dose: 2.5 mg Glucagon (Glucagen) 1 mg IVP PRN PRN PRN Reason: HYPOGLYCEMIA Stop: 03/21/18 16:25 Phenylephrine HCl 10 mg/ (Sodium Chloride) 250 mls @ 75 mls/hr IV TITR HARRIET; 50 MCG/MIN PRN Reason: Protocol Stop: 03/25/18 20:14 Norepinephrine Bitartrate 4 mg (/ Sodium Chloride) 254 mls @ 15.24 mls/hr IV TITR HARRIET; 4 MCG/MIN PRN Reason: Protocol Stop: 03/26/18 08:14 Last Titration: 02/06/18 18:30 Dose: 0 mcg/min, 0 mls/hr Insulin Aspart (Novolog Insulin Sliding Scale) 0 units SUBQ Q6HR HARRIET PRN Reason: Protocol Stop: 03/27/18 00:00 Last Admin: 02/11/18 06:44 Dose: Not Given Losartan Potassium (Cozaar) 100 mg PO DAILY [facility] Stop: 04/02/18 16:59 Last Admin: 02/11/18 09:21 Dose: 100 mg Magnesium Hydroxide (Milk Of Magnesia) 30 ml PO DAILY PRN PRN Reason: IF NO BM IN TWO DAYS Stop: 03/21/18 16:07 Metoprolol Tartrate (Lopressor) 5 mg IV Q4H PRN PRN Reason: Tachycardia Stop: 03/25/18 12:29 Multivitamins/Vitamin C (Theragran) 1 tab PO DAILY [facility] Stop: 03/22/18 08:59 Last Admin: 02/11/18 09:18 Dose: 1 tab Ondansetron HCl (Zofran Odt) 4 mg PO Q6H PRN PRN Reason: Nausea / Vomiting Stop: 03/21/18 16:07 Pantoprazole Sodium (Protonix) 40 mg NG DAILY [facility] Stop: 03/28/18 16:59 Last Admin: 02/11/18 09:19 Dose: 40 mg Prednisone (Deltasone) 10 mg PO DAILY [facility] Stop: 03/22/18 08:59 Last Admin: 02/11/18 09:18 Dose: 10 mg Sodium Phosphate (Fleet Enema) 135 ml RC DAILY PRN PRN Reason: Constipation Stop: 03/21/18 16:07 Vitamin A (Vitamin A & D) 5 gm TP DAILY [facility] Stop: 03/22/18 08:59 Last Admin: 02/11/18 09:19 Dose: 5 gm General: Mild distress HEENT: Atraumatic, Mucous membr. moist/pink, Other (facial edema, trach) Neck: Supple, +2 carotid pulse wo bruit Cardiovascular: Regular rate, Normal S1, Normal S2 Lungs: Other (decreased BS, coarse rhonchi, some congestion) Abdomen: Bowel sounds, Soft, Distended Extremities: Edema Neurological: Sensation intact Skin: no Rash Psych/Mental Status: Other (stuporous) - Procedures Procedures: Procedures Procedure Code Date BYPASS TRACHEA TO CUTANEOUS WITH TRACH DEV, OPEN APPROACH [id number] 01/20/[address] GASTROSTOMY TUBE 29236 01/20/18 INCISION OF WINDPIPE [id number] 01/20/18 INSERT EMERGENCY AIRWAY [id number] 01/20/18 INSERTION OF ENDOTRACHEAL AIRWAY INTO TRACHEA, VIA OPENING [id number] 01/20/18 INSERTION OF FEEDING DEVICE INTO STOMACH, PERC APPROACH [id number] 01/20/18 RESPIRATORY VENTILATION, GREATER THAN 96 CONSECUTIVE HOURS [id number] 01/20/18 VENT MGMT INPAT IN DAY 88802 01/20/18 Assessment/Plan - Problem List Patient Problems: All Active Problems Dementia (Acute) F03.90 ELEVATED WBC, LUNG INFILTRATES (Acute) Leukocytosis (Acute) D72.829 Pneumonia (Acute) J18.9 - Plan Plan: as per order sheet Nutritional Asmnt/Malnutr-PDOC - Dietary Evaluation Malnutrition Findings (Please click <Entered> for more info): Nutritional Asmnt/Malnutrition Start: 01/21/18 16: 32 Text: Status: Complete Freq: Document 01/21/18 16:32 [email or web address] (Rec: 01/21/18 16:48 [id number]) Nutritional Asmnt/Malnutrition Patient General Information Nutritional Screening High Risk Consult Diagnosis left lung infiltrate Pertinent Medical Hx/Surgical Hx dementia, HTN, hyperlipidemia per ER notes, no H&P at this time Subjective Information Pt seen sleeping at time of visit, not able to wake up for lunch. Per [employer], pt only had cereal and scrambled eggs this morning, not able to chew the Telugu toast d/t weakness. Current Diet Order/ Nutrition Support low cholesterol 300gm Pertinent Medications D5-0.45ns, novolog, megace, theragran, piperacillin, vit A &D Pertinent Labs 01/21 BUN 32, Glucose 180, POC 142-261 01/20 A1c 5.1, POC 127-165 Nutritional Hx/Data Height 1.6 m Height (Calculated Centimeters) 160.0 Current Weight (lbs) 37.648 kg Weight (Calculated Kilograms) 37.6 Weight (Calculated Grams) 45084.2 [place] Body Weight 115 Body Mass Index (BMI) 14.7 Weight Status Underweight GI Symptoms GI Symptoms None Last BM none Difficult in: None Skin Integrity/Comment: reddened to vagina and coccyx Current %PO Poor (25-49%) Estimated Nutritional Goals Calories/Kcals/Kg 25-30 Kcals Calculated [id number] Protein g/k Protein Calculated 52 Fluid: ml 1300-1560ml (1ml/kcal) Nutritional Problem 2. Problem Problem chewing difficulty Etiology weakness, sleepy Signs/Symptoms: pt need for mech soft diet 1. Problem Problem altered nutrition related lab values Etiology hyperglycemia Signs/Symptoms: Glucose 180, POC 127-261 Intervention/Recommendation Comments 1. Recommend Mech soft ground diet with Boost BID to increase nutrition intake. 2. Monitor PO intake, wt, labs and skin integrity 3. F/U as high risk in 2-3 days, 01/23-01/24 Expected Outcomes/Goals Expected Outcomes/Goals 1. PO intake to meet at least 75% of nutritional needs. 2. Wt stability, skin to remain intact, labs to approach WNL.
--- NOTE | 2018-02-11 14:10 | Infectious Disease Prog Note ---
Infectious Disease Subjective - Review of Systems Service Date: 02/11/18 Subjective: No fever, remains intubated orally. on the ventilator support. Infectious Disease Objective - Results Result Diagrams: 02/11/18 04:15 02/11/18 04:15 Recent Labs: Laboratory Last Values WBC 14.1 Th/cmm (4.8-10.8) H 02/11/18 04:15 RBC 3.12 Mil/cmm (3.80-5.20) L 02/11/18 04:15 Hgb 9.7 gm/dL (12-16) L 02/11/18 04:15 Hct 28.3 % (41.0-60) L 02/11/18 04:15 MCV 90.6 fl (81-100) 02/11/18 04:15 MCH 31.0 pg (27.0-31.0) 02/11/18 04:15 MCHC Differential 34.3 pg (28.0-36.0) 02/11/18 04:15 RDW 17.6 % (11.5-20.0) 02/11/18 04:15 Plt Count 52 Th/cmm (150-400) L 02/11/18 04:15 MPV 9.0 fl 02/11/18 04:15 Neutrophils % 87.3 % (40.0-80.0) H 02/05/18 07:00 Band Neutrophils % 8 % (0-10) 02/11/18 04:15 Lymphocytes % 7.0 % (20.0-50.0) L 02/05/18 07:00 Monocytes % 4.3 % (2.0-10.0) 02/05/18 07:00 Eosinophils % 1.4 % (0.0-5.0) 02/05/18 07:00 Basophils % 0.0 % (0.0-2.0) 02/05/18 07:00 Neutrophils (Manual) 85 % (40-80) H 02/11/18 04:15 Lymphocytes 4 % (20-50) L 02/11/18 04:15 Monocytes 3 % (2-10) 02/11/18 04:15 Eosinophils 0 % (0-5) 02/10/18 04:16 Basophils 0 % (0-3) 02/10/18 04:16 Toxic Granulation 1+ 02/09/18 04:17 Platelet Estimate DECREASED PLATELETS (NORMAL) 02/11/18 04:15 Platelet Morphology NORMAL (NORMAL) 02/10/18 04:16 RBC Morph Micro Appear NORMAL (NORMAL) 02/10/18 04:16 Eos Smear Source URINE 01/28/18 17:10 Eos Smear Total Cells NONE SEEN (NONE SEEN) 01/28/18 17:10 PT 10.4 SECONDS (9.5-11.5) 02/07/18 05:21 INR 1.00 (0.5-1.4) 02/07/18 05:21 PTT (Actin FS) 28.4 SECONDS (26.0-38.0) 02/07/18 05:21 Specimen Source Arterial 01/24/18 17:45 Sample Site Left Radial 01/24/18 17:45 pH 7.41 (7.35-7.45) 01/24/18 17:45 pCO2 32.0 mmHg (35.0-45.0) L 01/24/18 17:45 pO2 397.0 mmHg (80.0-100.0) H 01/24/18 17:45 HCO3 22.3 mEq/L (20.0-26.0) 01/24/18 17:45 Base Excess -3.5 mEq/L (-3.0-3.0) L 01/24/18 17:45 O2 Saturation 100.0 % (92.0-100.0) 01/24/18 17:45 Bebo Test YES 01/24/18 17:45 Vent Rate 14 01/24/18 17:45 Inspired O2 100 01/24/18 17:45 Tidal Volume 450 01/24/18 17:45 PEEP 5 01/24/18 17:45 Pressure (ins/psv/peep) NA 01/24/18 17:45 Critical Value E.BRIDGES 01/24/18 17:45 Sodium 124 mEq/L (136-145) L 02/11/18 04:15 Potassium 4.5 mEq/L (3.5-5.1) 02/11/18 04:15 Chloride 94 mEq/L (98-107) L 02/11/18 04:15 Carbon Dioxide 21.1 mEq/L (21.0-31.0) 02/11/18 04:15 Anion Gap 13.4 (7.0-16.0) 02/11/18 04:15 BUN 75 mg/dL (7-25) H 02/11/18 04:15 Creatinine 1.8 mg/dL (0.6-1.2) H 02/11/18 04:15 Est GFR ( Amer) TNP 02/11/18 04:15 Est GFR (Non-Af Amer) TNP 02/11/18 04:15 BUN/Creatinine Ratio 41.7 02/11/18 04:15 Glucose 132 mg/dL (70-105) H 02/11/18 04:15 POC Glucose 104 MG/DL (70 - 105) 02/11/18 12:16 Hemoglobin A1c % 5.1 % (4.0-6.0) 01/20/18 12:15 Plasma/Ser Osmolality 287 mOsmol/kg (280-301) 01/28/18 17:45 Whole Bld Lactic Acid 1.50 mmol/L (0.60-1.99) 01/28/18 13:40 Uric Acid 5.3 mg/dL (2.3-6.6) 01/30/18 05:06 Calcium 7.5 mg/dL (8.6-10.3) L 02/11/18 04:15 Phosphorus 3.3 mg/dL (2.5-5.0) 01/30/18 05:06 Magnesium 1.8 mg/dL (1.9-2.7) L 02/09/18 04:17 Iron 54 ug/dL (27-139) 01/20/18 12:50 TIBC 159 ug/dL (250-450) L 01/20/18 12:50 Iron Saturation 34 % (15-55) 01/20/18 12:50 Unsaturated IBC 105 ug/dL (118-369) L 01/20/18 12:50 Ferritin 1230 ng/mL (15-150) H 01/20/18 12:50 Total Bilirubin 1.3 mg/dL (0.3-1.0) H 02/10/18 04:16 Direct Bilirubin 0.07 mg/dL (0.0-0.2) 01/20/18 12:30 AST 418 U/L (13-39) H 02/10/18 04:16 ALT 68 U/L (7-52) H 02/10/18 04:16 Alkaline Phosphatase 542 U/L (34-104) H 02/10/18 04:16 Troponin I 0.03 ng/mL (0.01-0.05) 01/20/18 12:15 C-Reactive Protein 4.3 mg/dL (0.0-0.9) H 01/20/18 12:50 B-Natriuretic Peptide 185.0 pg/mL (5.0-100.0) H 01/25/18 04:20 Total Protein 3.8 gm/dL (6.0-8.3) L 02/10/18 04:16 Albumin 2.5 gm/dL (3.7-5.3) L 02/10/18 04:16 Globulin 1.3 gm/dL 02/10/18 04:16 Albumin/Globulin Ratio 1.9 (1.0-1.8) H 02/10/18 04:16 Triglycerides 97 mg/dL (<150) 01/20/18 12:15 Cholesterol 195 mg/dL (<200) 01/20/18 12:15 LDL Cholesterol Direct 152 mg/dL (75-193) 01/20/18 12:15 HDL Cholesterol 40 mg/dL (23-92) 01/20/18 12:15 Lipase 108 U/L (11-82) H 01/20/18 12:15 Free T4 1.12 ng/dL (0.82-1.77) 01/20/18 12:50 TSH 0.06 uIU/ml (0.34-5.60) L 01/20/18 12:15 Urine Source [place]EN [place] 01/28/18 17:10 Urine Color YELLOW 01/28/18 17:10 Urine Clarity CLOUDY (CLEAR) H 01/28/18 17:10 Urine pH 6.0 (4.6 - 8.0) 01/28/18 17:10 Ur Specific [place] 1.020 (1.005-1.030) 01/28/18 17:10 Urine Protein 100 mg/dL (NEGATIVE) H 01/28/18 17:10 Urine Glucose (UA) NEGATIVE mg/dL (NEGATIVE) 01/28/18 17:10 Urine Ketones NEGATIVE mg/dL (NEGATIVE) 01/28/18 17:10 Urine Blood MODERATE (NEGATIVE) H 01/28/18 17:10 Urine Nitrate NEGATIVE (NEGATIVE) 01/28/18 17:10 Urine Bilirubin NEGATIVE (NEGATIVE) 01/28/18 17:10 Urine Urobilinogen 0.2 E.U./dL (0.2 - 1.0) 01/28/18 17:10 Ur Leukocyte Esterase MODERATE (NEGATIVE) H 01/28/18 17:10 Urine RBC 5-10 /hpf (0-5) H 01/28/18 17:10 Urine WBC 10-25 /hpf (0-5) H 01/28/18 17:10 Ur Epithelial Cells OCCASIONAL /lpf (FEW) 01/28/18 17:10 Urine Bacteria OCCASIONAL /hpf (NONE SEEN) 01/28/18 17:10 Urine Yeast MANY /hpf (NONE SEEN) H 01/28/18 17:10 Ur Random Sodium 56 mmol/L 01/28/18 17:10 Urine Creatinine 39.0 mg/dl (28.0-217.0) 01/28/18 17:10 Stool Occult Blood POSITIVE (NEGATIVE) H 02/09/18 11:00 Vancomycin Trough 27.8 ug/mL (10-20) H 01/26/18 23:00 Random Vancomycin 22.6 ug/mL (5.0-40.0) 02/03/18 04:20 Blood Type O POSITIVE 02/03/18 16:58 Antibody Screen NEGATIVE 02/03/18 16:58 Crossmatch See Detail 02/03/18 16:58 - Physical Exam Vitals and I&O: Vital Signs Temp 96.2 F 02/11/18 12:00 Pulse 85 02/11/18 13:11 Resp 23 02/11/18 13:00 BP 95/48 02/11/18 13:00 Pulse Ox 100 02/11/18 13:11 Intake & Output 02/10/18 02/11/18 02/11/18 18:59 06:59 18:59 Intake Total 460 560 Output Total 50 70 Balance 410 490 Weight (lbs) 52.163 kg 52.163 kg Intake: Tube Feeding 360 360 Other 100 200 Output: Urine 50 70 Other: # Bowel Movements 0 2 Stool Characteristics Soft Soft Brown Brown Weight Source Bedscale Bedscale Active Medications: Current Medications Acetaminophen (Tylenol) 650 mg PO Q4H PRN PRN Reason: MILD PAIN OR TEMP >100.4 Stop: 03/21/18 16:07 Al Hydrox/Mg Hydrox/Simethicone (Maalox) 30 ml PO Q6HR PRN PRN Reason: GI DISTRESS Stop: 03/21/18 16:28 Albuterol/Ipratropium (Duoneb Neb) 3 ml HHN Q6HRT PENDING SALE TO [facility] Stop: 03/30/18 00:59 Last Admin: 02/11/18 13:15 Dose: 3 ml Artificial Tears (Artificial Tears Ophth Soln) 1 drop EACH EYE Q2HR PRN PRN Reason: Dry Eye Stop: 03/27/18 09:28 Last Admin: 02/05/18 09:06 Dose: 1 drop Atorvastatin Calcium (Lipitor) 80 mg PO HS HARRIET PRN Reason: Protocol Stop: 03/21/18 20:59 Last Admin: 02/10/18 21:10 Dose: 80 mg Bisacodyl (Dulcolax 10 Mg Supp) 10 mg RC DAILY PRN PRN Reason: Constipation Stop: 03/21/18 16:07 Budesonide (Pulmicort) 0.5 mg HHN BIDRT PENDING SALE TO [facility] Stop: 04/01/18 18:59 Last Admin: 02/11/18 07:29 Dose: 0.5 mg Carvedilol (Coreg) 12.5 mg PO BID PENDING SALE TO [facility] Stop: 03/21/18 16:59 Last Admin: 02/11/18 09:22 Dose: Not Given Chlorhexidine Gluconate (Peridex) 15 ml MM 0800,2000 PENDING SALE TO [facility] Stop: 03/27/18 07:59 Last Admin: 02/11/18 08:30 Dose: 15 ml Dextrose (D50w) 50 ml IVP PRN PRN PRN Reason: HYPOGLYCEMIA Stop: 03/21/18 16:07 Diltiazem HCl (Cardizem) 60 mg PO Q8HR PENDING SALE TO [facility] Stop: 04/10/18 20:59 Last Admin: 02/11/18 12:30 Dose: Not Given Enalaprilat (Vasotec) 2.5 mg IVP Q6HR PRN PRN Reason: SBP ABOVE 160 Stop: 03/25/18 11:59 Last Admin: 02/07/18 13:53 Dose: 2.5 mg Glucagon (Glucagen) 1 mg IVP PRN PRN PRN Reason: HYPOGLYCEMIA Stop: 03/21/18 16:25 Phenylephrine HCl 10 mg/ (Sodium Chloride) 250 mls @ 75 mls/hr IV TITR HARRIET; 50 MCG/MIN PRN Reason: Protocol Stop: 03/25/18 20:14 Norepinephrine Bitartrate 4 mg (/ Sodium Chloride) 254 mls @ 15.24 mls/hr IV TITR HARRIET; 4 MCG/MIN PRN Reason: Protocol Stop: 03/26/18 08:14 Last Titration: 02/06/18 18:30 Dose: 0 mcg/min, 0 mls/hr Insulin Aspart (Novolog Insulin Sliding Scale) 0 units SUBQ Q6HR HARRIET PRN Reason: Protocol Stop: 03/27/18 00:00 Last Admin: 02/11/18 13:37 Dose: Not Given Losartan Potassium (Cozaar) 100 mg PO DAILY PENDING SALE TO [facility] Stop: 04/02/18 16:59 Last Admin: 02/11/18 09:21 Dose: 100 mg Magnesium Hydroxide (Milk Of Magnesia) 30 ml PO DAILY PRN PRN Reason: IF NO BM IN TWO DAYS Stop: 03/21/18 16:07 Metoprolol Tartrate (Lopressor) 5 mg IV Q4H PRN PRN Reason: Tachycardia Stop: 03/25/18 12:29 Multivitamins/Vitamin C (Theragran) 1 tab PO DAILY PENDING SALE TO [facility] Stop: 03/22/18 08:59 Last Admin: 02/11/18 09:18 Dose: 1 tab Ondansetron HCl (Zofran Odt) 4 mg PO Q6H PRN PRN Reason: Nausea / Vomiting Stop: 03/21/18 16:07 Pantoprazole Sodium (Protonix) 40 mg NG DAILY PENDING SALE TO [facility] Stop: 03/28/18 16:59 Last Admin: 02/11/18 09:19 Dose: 40 mg Prednisone (Deltasone) 10 mg PO DAILY PENDING SALE TO [facility] Stop: 03/22/18 08:59 Last Admin: 02/11/18 09:18 Dose: 10 mg Sodium Phosphate (Fleet Enema) 135 ml RC DAILY PRN PRN Reason: Constipation Stop: 03/21/18 16:07 Vitamin A (Vitamin A & D) 5 gm TP DAILY PENDING SALE TO [facility] Stop: 03/22/18 08:59 Last Admin: 02/11/18 09:19 Dose: 5 gm General: no acute distress, well developed, well nourished HEENT: atraumatic, normocephalic, PERRLA, EOMI, moist mucous membrane Neck: supple, no thyromegaly Cardiovascular: S1S2, regular Lungs: clear to auscultation bilaterally, clear to percussion Abdomen: soft, no tender, no distended Extremities: no cyanosis, no clubbing, no edema Neurological: other Skin: intact - Procedures Procedures: Procedures Procedure Code Date BYPASS TRACHEA TO CUTANEOUS WITH TRACH DEV, OPEN APPROACH [id number] 01/20/[address] GASTROSTOMY TUBE 90715 01/20/18 INCISION OF WINDPIPE 99080 01/20/18 INSERT EMERGENCY AIRWAY 89992 01/20/18 INSERTION OF ENDOTRACHEAL AIRWAY INTO TRACHEA, VIA OPENING [id number] 01/20/18 INSERTION OF FEEDING DEVICE INTO STOMACH, PERC APPROACH [id number] 01/20/18 RESPIRATORY VENTILATION, GREATER THAN 96 CONSECUTIVE HOURS [id number] 01/20/18 VENT MGMT INPAT INIT DAY 74705 01/20/18 Infectious Disease Assmt/Plan - Problem List Patient Problems: All Active Problems Dementia (Acute) F03.90 ELEVATED WBC, LUNG INFILTRATES (Acute) Leukocytosis (Acute) D72.829 Pneumonia (Acute) J18.9 - Assessment Assessment: 1. Leukocytosis. suspect sepsis. 2. Pneumonia. L lung. 3. Dementia 4. S/p CP arrest. 5. Anoxic encephalopathy. 6. VDRF. 7. Increaing creatinine. LAURENCE. oliguric. 8. pulmonary aspergillosis. - Plan Plan: off antibiotics. Leukocytosis, reactive, improving on repeat test.Will monitor closely. Nutritional Asmnt/Malnutr-PDOC - Dietary Evaluation Malnutrition Findings (Please click <Entered> for more info): Nutritional Asmnt/Malnutrition Start: 01/21/18 16: 32 Text: Status: Complete Freq: Document 01/21/18 16:32 [facility] (Rec: 01/21/18 16:48 [facility] [id number]) Nutritional Asmnt/Malnutrition Patient General Information Nutritional Screening High Risk Consult Diagnosis left lung infiltrate Pertinent Medical Hx/Surgical Hx dementia, HTN, hyperlipidemia per ER notes, no H&P at this time Subjective Information Pt seen sleeping at time of visit, not able to wake up for lunch. 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 Current Diet Order/ Nutrition Support low cholesterol 300gm Pertinent Medications D5-0.45ns, novolog, megace, theragran, piperacillin, vit A &D Pertinent Labs 01/21 BUN 32, Glucose 180, POC 142-261 01/20 A1c 5.1, POC 127-165 Nutritional Hx/Data Height 1.6 m Height (Calculated Centimeters) 160.0 Current Weight (lbs) 37.648 kg Weight (Calculated Kilograms) 37.6 Weight (Calculated Grams) 42464.2 [place] Body Weight 115 Body Mass Index (BMI) 14.7 Weight Status Underweight GI Symptoms GI Symptoms None Last BM none Difficult in: None Skin Integrity/Comment: reddened to vagina and coccyx Current %PO Poor (25-49%) Estimated Nutritional Goals Calories/Kcals/Kg 25-30 Kcals Calculated 1248-0841 Protein g/k Protein Calculated 52 Fluid: ml 1300-1560ml (1ml/kcal) Nutritional Problem 2. Problem Problem chewing difficulty Etiology weakness, sleepy Signs/Symptoms: pt need for mech soft diet 1. Problem Problem altered nutrition related lab values Etiology hyperglycemia Signs/Symptoms: Glucose 180, POC 127-261 Intervention/Recommendation Comments 1. Recommend Mech soft ground diet with Boost BID to increase nutrition intake. 2. Monitor PO intake, wt, labs and skin integrity 3. F/U as high risk in 2-3 days, 01/23-01/24 Expected Outcomes/Goals Expected Outcomes/Goals 1. PO intake to meet at least 75% of nutritional needs. 2. Wt stability, skin to remain intact, labs to approach WNL.
--- NOTE | 2018-02-11 14:18 | Infectious Disease Prog Note ---
Infectious Disease Subjective - Review of Systems Service Date: 02/11/18 Subjective: No fever, remains intubated orally. on the ventilator support. Infectious Disease Objective - Results Result Diagrams: 02/11/18 04:15 02/11/18 04:15 Recent Labs: Laboratory Last Values WBC 14.1 Th/cmm (4.8-10.8) H 02/11/18 04:15 RBC 3.12 Mil/cmm (3.80-5.20) L 02/11/18 04:15 Hgb 9.7 gm/dL (12-16) L 02/11/18 04:15 Hct 28.3 % (41.0-60) L 02/11/18 04:15 MCV 90.6 fl (81-100) 02/11/18 04:15 MCH 31.0 pg (27.0-31.0) 02/11/18 04:15 MCHC Differential 34.3 pg (28.0-36.0) 02/11/18 04:15 RDW 17.6 % (11.5-20.0) 02/11/18 04:15 Plt Count 52 Th/cmm (150-400) L 02/11/18 04:15 MPV 9.0 fl 02/11/18 04:15 Neutrophils % 87.3 % (40.0-80.0) H 02/05/18 07:00 Band Neutrophils % 8 % (0-10) 02/11/18 04:15 Lymphocytes % 7.0 % (20.0-50.0) L 02/05/18 07:00 Monocytes % 4.3 % (2.0-10.0) 02/05/18 07:00 Eosinophils % 1.4 % (0.0-5.0) 02/05/18 07:00 Basophils % 0.0 % (0.0-2.0) 02/05/18 07:00 Neutrophils (Manual) 85 % (40-80) H 02/11/18 04:15 Lymphocytes 4 % (20-50) L 02/11/18 04:15 Monocytes 3 % (2-10) 02/11/18 04:15 Eosinophils 0 % (0-5) 02/10/18 04:16 Basophils 0 % (0-3) 02/10/18 04:16 Toxic Granulation 1+ 02/09/18 04:17 Platelet Estimate DECREASED PLATELETS (NORMAL) 02/11/18 04:15 Platelet Morphology NORMAL (NORMAL) 02/10/18 04:16 RBC Morph Micro Appear NORMAL (NORMAL) 02/10/18 04:16 Eos Smear Source URINE 01/28/18 17:10 Eos Smear Total Cells NONE SEEN (NONE SEEN) 01/28/18 17:10 PT 10.4 SECONDS (9.5-11.5) 02/07/18 05:21 INR 1.00 (0.5-1.4) 02/07/18 05:21 PTT (Actin FS) 28.4 SECONDS (26.0-38.0) 02/07/18 05:21 Specimen Source Arterial 01/24/18 17:45 Sample Site Left Radial 01/24/18 17:45 pH 7.41 (7.35-7.45) 01/24/18 17:45 pCO2 32.0 mmHg (35.0-45.0) L 01/24/18 17:45 pO2 397.0 mmHg (80.0-100.0) H 01/24/18 17:45 HCO3 22.3 mEq/L (20.0-26.0) 01/24/18 17:45 Base Excess -3.5 mEq/L (-3.0-3.0) L 01/24/18 17:45 O2 Saturation 100.0 % (92.0-100.0) 01/24/18 17:45 Bebo Test YES 01/24/18 17:45 Vent Rate 14 01/24/18 17:45 Inspired O2 100 01/24/18 17:45 Tidal Volume 450 01/24/18 17:45 PEEP 5 01/24/18 17:45 Pressure (ins/psv/peep) NA 01/24/18 17:45 Critical Value E.BRIDGES 01/24/18 17:45 Sodium 124 mEq/L (136-145) L 02/11/18 04:15 Potassium 4.5 mEq/L (3.5-5.1) 02/11/18 04:15 Chloride 94 mEq/L (98-107) L 02/11/18 04:15 Carbon Dioxide 21.1 mEq/L (21.0-31.0) 02/11/18 04:15 Anion Gap 13.4 (7.0-16.0) 02/11/18 04:15 BUN 75 mg/dL (7-25) H 02/11/18 04:15 Creatinine 1.8 mg/dL (0.6-1.2) H 02/11/18 04:15 Est GFR ( Amer) TNP 02/11/18 04:15 Est GFR (Non-Af Amer) TNP 02/11/18 04:15 BUN/Creatinine Ratio 41.7 02/11/18 04:15 Glucose 132 mg/dL (70-105) H 02/11/18 04:15 POC Glucose 104 MG/DL (70 - 105) 02/11/18 12:16 Hemoglobin A1c % 5.1 % (4.0-6.0) 01/20/18 12:15 Plasma/Ser Osmolality 287 mOsmol/kg (280-301) 01/28/18 17:45 Whole Bld Lactic Acid 1.50 mmol/L (0.60-1.99) 01/28/18 13:40 Uric Acid 5.3 mg/dL (2.3-6.6) 01/30/18 05:06 Calcium 7.5 mg/dL (8.6-10.3) L 02/11/18 04:15 Phosphorus 3.3 mg/dL (2.5-5.0) 01/30/18 05:06 Magnesium 1.8 mg/dL (1.9-2.7) L 02/09/18 04:17 Iron 54 ug/dL (27-139) 01/20/18 12:50 TIBC 159 ug/dL (250-450) L 01/20/18 12:50 Iron Saturation 34 % (15-55) 01/20/18 12:50 Unsaturated IBC 105 ug/dL (118-369) L 01/20/18 12:50 Ferritin 1230 ng/mL (15-150) H 01/20/18 12:50 Total Bilirubin 1.3 mg/dL (0.3-1.0) H 02/10/18 04:16 Direct Bilirubin 0.07 mg/dL (0.0-0.2) 01/20/18 12:30 AST 418 U/L (13-39) H 02/10/18 04:16 ALT 68 U/L (7-52) H 02/10/18 04:16 Alkaline Phosphatase 542 U/L (34-104) H 02/10/18 04:16 Troponin I 0.03 ng/mL (0.01-0.05) 01/20/18 12:15 C-Reactive Protein 4.3 mg/dL (0.0-0.9) H 01/20/18 12:50 B-Natriuretic Peptide 185.0 pg/mL (5.0-100.0) H 01/25/18 04:20 Total Protein 3.8 gm/dL (6.0-8.3) L 02/10/18 04:16 Albumin 2.5 gm/dL (3.7-5.3) L 02/10/18 04:16 Globulin 1.3 gm/dL 02/10/18 04:16 Albumin/Globulin Ratio 1.9 (1.0-1.8) H 02/10/18 04:16 Triglycerides 97 mg/dL (<150) 01/20/18 12:15 Cholesterol 195 mg/dL (<200) 01/20/18 12:15 LDL Cholesterol Direct 152 mg/dL (75-193) 01/20/18 12:15 HDL Cholesterol 40 mg/dL (23-92) 01/20/18 12:15 Lipase 108 U/L (11-82) H 01/20/18 12:15 Free T4 1.12 ng/dL (0.82-1.77) 01/20/18 12:50 TSH 0.06 uIU/ml (0.34-5.60) L 01/20/18 12:15 Urine Source [place] 01/28/18 17:10 Urine Color YELLOW 01/28/18 17:10 Urine Clarity CLOUDY (CLEAR) H 01/28/18 17:10 Urine pH 6.0 (4.6 - 8.0) 01/28/18 17:10 Ur Specific [place] 1.020 (1.005-1.030) 01/28/18 17:10 Urine Protein 100 mg/dL (NEGATIVE) H 01/28/18 17:10 Urine Glucose (UA) NEGATIVE mg/dL (NEGATIVE) 01/28/18 17:10 Urine Ketones NEGATIVE mg/dL (NEGATIVE) 01/28/18 17:10 Urine Blood MODERATE (NEGATIVE) H 01/28/18 17:10 Urine Nitrate NEGATIVE (NEGATIVE) 01/28/18 17:10 Urine Bilirubin NEGATIVE (NEGATIVE) 01/28/18 17:10 Urine Urobilinogen 0.2 E.U./dL (0.2 - 1.0) 01/28/18 17:10 Ur Leukocyte Esterase MODERATE (NEGATIVE) H 01/28/18 17:10 Urine RBC 5-10 /hpf (0-5) H 01/28/18 17:10 Urine WBC 10-25 /hpf (0-5) H 01/28/18 17:10 Ur Epithelial Cells OCCASIONAL /lpf (FEW) 01/28/18 17:10 Urine Bacteria OCCASIONAL /hpf (NONE SEEN) 01/28/18 17:10 Urine Yeast MANY /hpf (NONE SEEN) H 01/28/18 17:10 Ur Random Sodium 56 mmol/L 01/28/18 17:10 Urine Creatinine 39.0 mg/dl (28.0-217.0) 01/28/18 17:10 Stool Occult Blood POSITIVE (NEGATIVE) H 02/09/18 11:00 Vancomycin Trough 27.8 ug/mL (10-20) H 01/26/18 23:00 Random Vancomycin 22.6 ug/mL (5.0-40.0) 02/03/18 04:20 Blood Type O POSITIVE 02/03/18 16:58 Antibody Screen NEGATIVE 02/03/18 16:58 Crossmatch See Detail 02/03/18 16:58 - Physical Exam Vitals and I&O: Vital Signs Temp 96.2 F 02/11/18 12:00 Pulse 85 02/11/18 13:11 Resp 23 02/11/18 13:00 BP 95/48 02/11/18 13:00 Pulse Ox 100 02/11/18 13:11 Intake & Output 02/10/18 02/11/18 02/11/18 18:59 06:59 18:59 Intake Total 460 560 Output Total 50 70 Balance 410 490 Weight (lbs) 52.163 kg 52.163 kg Intake: Tube Feeding 360 360 Other 100 200 Output: Urine 50 70 Other: # Bowel Movements 0 2 Stool Characteristics Soft Soft Brown Brown Weight Source Bedscale Bedscale Active Medications: Current Medications Acetaminophen (Tylenol) 650 mg PO Q4H PRN PRN Reason: MILD PAIN OR TEMP >100.4 Stop: 03/21/18 16:07 Al Hydrox/Mg Hydrox/Simethicone (Maalox) 30 ml PO Q6HR PRN PRN Reason: GI DISTRESS Stop: 03/21/18 16:28 Albuterol/Ipratropium (Duoneb Neb) 3 ml HHN Q6HRT [facility] Stop: 03/30/18 00:59 Last Admin: 02/11/18 13:15 Dose: 3 ml Artificial Tears (Artificial Tears Ophth Soln) 1 drop EACH EYE Q2HR PRN PRN Reason: Dry Eye Stop: 03/27/18 09:28 Last Admin: 02/05/18 09:06 Dose: 1 drop Atorvastatin Calcium (Lipitor) 80 mg PO HS [facility]RI[facility] PRN Reason: Protocol Stop: 03/21/18 20:59 Last Admin: 02/10/18 21:10 Dose: 80 mg Bisacodyl (Dulcolax 10 Mg Supp) 10 mg RC DAILY PRN PRN Reason: Constipation Stop: 03/21/18 16:07 Budesonide (Pulmicort) 0.5 mg HHN BIDRT [facility] Stop: 04/01/18 18:59 Last Admin: 02/11/18 07:29 Dose: 0.5 mg Carvedilol (Coreg) 12.5 mg PO BID [facility] Stop: 03/21/18 16:59 Last Admin: 02/11/18 09:22 Dose: Not Given Chlorhexidine Gluconate (Peridex) 15 ml MM 0800,2000 [facility] Stop: 03/27/18 07:59 Last Admin: 02/11/18 08:30 Dose: 15 ml Dextrose (D50w) 50 ml IVP PRN PRN PRN Reason: HYPOGLYCEMIA Stop: 03/21/18 16:07 Diltiazem HCl (Cardizem) 60 mg PO Q8HR [facility] Stop: 04/10/18 20:59 Last Admin: 02/11/18 12:30 Dose: Not Given Enalaprilat (Vasotec) 2.5 mg IVP Q6HR PRN PRN Reason: SBP ABOVE 160 Stop: 03/25/18 11:59 Last Admin: 02/07/18 13:53 Dose: 2.5 mg Glucagon (Glucagen) 1 mg IVP PRN PRN PRN Reason: HYPOGLYCEMIA Stop: 03/21/18 16:25 Phenylephrine HCl 10 mg/ (Sodium Chloride) 250 mls @ 75 mls/hr IV TITR HARRIET; 50 MCG/MIN PRN Reason: Protocol Stop: 03/25/18 20:14 Norepinephrine Bitartrate 4 mg (/ Sodium Chloride) 254 mls @ 15.24 mls/hr IV TITR HARRIET; 4 MCG/MIN PRN Reason: Protocol Stop: 03/26/18 08:14 Last Titration: 02/06/18 18:30 Dose: 0 mcg/min, 0 mls/hr Insulin Aspart (Novolog Insulin Sliding Scale) 0 units SUBQ Q6HR [facility] PRN Reason: Protocol Stop: 03/27/18 00:00 Last Admin: 02/11/18 13:37 Dose: Not Given Losartan Potassium (Cozaar) 100 mg PO DAILY [facility] Stop: 04/02/18 16:59 Last Admin: 02/11/18 09:21 Dose: 100 mg Magnesium Hydroxide (Milk Of Magnesia) 30 ml PO DAILY PRN PRN Reason: IF NO BM IN TWO DAYS Stop: 03/21/18 16:07 Metoprolol Tartrate (Lopressor) 5 mg IV Q4H PRN PRN Reason: Tachycardia Stop: 03/25/18 12:29 Multivitamins/Vitamin C (Theragran) 1 tab PO DAILY [facility] Stop: 03/22/18 08:59 Last Admin: 02/11/18 09:18 Dose: 1 tab Ondansetron HCl (Zofran Odt) 4 mg PO Q6H PRN PRN Reason: Nausea / Vomiting Stop: 03/21/18 16:07 Pantoprazole Sodium (Protonix) 40 mg NG DAILY [facility] Stop: 03/28/18 16:59 Last Admin: 02/11/18 09:19 Dose: 40 mg Prednisone (Deltasone) 10 mg PO DAILY [facility] Stop: 03/22/18 08:59 Last Admin: 02/11/18 09:18 Dose: 10 mg Sodium Phosphate (Fleet Enema) 135 ml RC DAILY PRN PRN Reason: Constipation Stop: 03/21/18 16:07 Vitamin A (Vitamin A & D) 5 gm TP DAILY [facility] Stop: 03/22/18 08:59 Last Admin: 02/11/18 09:19 Dose: 5 gm General: no acute distress, well developed HEENT: atraumatic, normocephalic, PERRLA, EOMI, moist mucous membrane Neck: supple, no thyromegaly Cardiovascular: S1S2, regular Lungs: clear to auscultation bilaterally, clear to percussion Abdomen: soft, bowel sounds, no tender, no distended Extremities: no cyanosis, no clubbing, no edema Neurological: other (Unresponsive.) - Procedures Procedures: Procedures Procedure Code Date BYPASS TRACHEA TO CUTANEOUS WITH TRACH DEV, OPEN APPROACH [id number] 01/20/[address] GASTROSTOMY TUBE 94421 01/20/18 INCISION OF WINDPIPE 85360 01/20/18 INSERT EMERGENCY AIRWAY 11723 01/20/18 INSERTION OF ENDOTRACHEAL AIRWAY INTO TRACHEA, VIA OPENING [id number] 01/20/18 INSERTION OF FEEDING DEVICE INTO STOMACH, PERC APPROACH [id number] 01/20/18 RESPIRATORY VENTILATION, GREATER THAN 96 CONSECUTIVE HOURS [id number] 01/20/18 VENT MGMT INPAT INIT DAY 21388 01/20/18 Infectious Disease Assmt/Plan - Problem List Patient Problems: All Active Problems Dementia (Acute) F03.90 ELEVATED WBC, LUNG INFILTRATES (Acute) Leukocytosis (Acute) D72.829 Pneumonia (Acute) J18.9 - Assessment Assessment: 1. Leukocytosis. suspect sepsis. 2. Pneumonia. L lung. 3. Dementia 4. S/p CP arrest. 5. Anoxic encephalopathy. 6. VDRF. 7. Increaing creatinine. LAURENCE. oliguric. 8. pulmonary aspergillosis. - Plan Plan: off antibiotics. Give V fend po BID Leukocytosis, reactive, improving on repeat test. Will monitor closely. Nutritional Asmnt/Malnutr-PDOC - Dietary Evaluation Malnutrition Findings (Please click <Entered> for more info): Nutritional Asmnt/Malnutrition Start: 01/21/18 16: 32 Text: Status: Complete Freq: Document 01/21/18 16:32 [facility] (Rec: 01/21/18 16:48 [email or web address] Nutritional Asmnt/Malnutrition Patient General Information Nutritional Screening High Risk Consult Diagnosis left lung infiltrate Pertinent Medical Hx/Surgical Hx dementia, HTN, hyperlipidemia per ER notes, no H&P at this time Subjective Information Pt seen sleeping at time of visit, not able to wake up for lunch. Per ORGAN GRINDER, pt only had cereal and scrambled eggs this morning, not able to chew the [place] toast d/t weakness. Current Diet Order/ Nutrition Support low cholesterol 300gm Pertinent Medications D5-0.45ns, novolog, megace, theragran, piperacillin, vit A &D Pertinent Labs 01/21 BUN 32, Glucose 180, POC 142-261 01/20 A1c 5.1, POC 127-165 Nutritional Hx/Data Height 1.6 m Height (Calculated Centimeters) 160.0 Current Weight (lbs) 37.648 kg Weight (Calculated Kilograms) 37.6 Weight (Calculated Grams) 30452.2 [place] Body Weight 115 Body Mass Index (BMI) 14.7 Weight Status Underweight GI Symptoms GI Symptoms None Last BM none Difficult in: None Skin Integrity/Comment: reddened to vagina and coccyx Current %PO Poor (25-49%) Estimated Nutritional Goals Calories/Kcals/Kg 25-30 Kcals Calculated 2067-8216 Protein g/k Protein Calculated 52 Fluid: ml 1300-1560ml (1ml/kcal) Nutritional Problem 2. Problem Problem chewing difficulty Etiology weakness, sleepy Signs/Symptoms: pt need for mech soft diet 1. Problem Problem altered nutrition related lab values Etiology hyperglycemia Signs/Symptoms: Glucose 180, POC 127-261 Intervention/Recommendation Comments 1. Recommend Mech soft ground diet with Boost BID to increase nutrition intake. 2. Monitor PO intake, wt, labs and skin integrity 3. F/U as high risk in 2-3 days, 01/23-01/24 Expected Outcomes/Goals Expected Outcomes/Goals 1. PO intake to meet at least 75% of nutritional needs. 2. Wt stability, skin to remain intact, labs to approach WNL.
[2018-02-11] MEDS ORDERED: HYDROCORTISONE SODIUM SUCC IVP ONE (14:30)
[2018-02-11] MEDS: Hydrocortisone Sodium Succ 100 mg Vial IVP SCH ×2 (17:12→21:05)
[2018-02-11] MEDS: VORICONAZOLE 200 MG PO SCH (17:12)
[2018-02-12] MEDS: Albuterol/Ipratropium Neb 3 ML AERS HHN SCH ×4 (00:31→18:37)
[2018-02-12 04:39] LABS: MANUAL DIFF REQUIRED? YES
[2018-02-12] MEDS: Hydrocortisone Sodium Succ 100 mg Vial IVP SCH ×3 (04:48→21:05)
[2018-02-12] MEDS: Diltiazem 30 mg Tab PO SCH ×3 (04:48→21:06)
[2018-02-12 04:54] LABS: ALB/GLOB RATIO 1.7 (1.0-1.8); ALBUMIN 2.8 gm/dL (3.7-5.3); ALKALINE PHOSPHATASE 823 U/L (34-104); ANION GAP 16.8 (7.0-16.0); BILIRUBIN,TOTAL 1.1 mg/dL (0.3-1.0); CALCIUM SERUM 7.6 mg/dL (8.6-10.3); CARBON DIOXIDE 21.5 mEq/L (21.0-31.0); CHLORIDE 91 mEq/L (98-107); GLUCOSE 108 mg/dL (70-105); POTASSIUM SERUM 5.3 mEq/L (3.5-5.1); SGOT 534 U/L (13-39); SGPT/ALT 60 U/L (7-52); SODIUM SERUM 124 mEq/L (136-145); TOTAL PROTEIN,SERUM 4.5 gm/dL (6.0-8.3)
[2018-02-12 04:59] LABS: BUN - UREA NITROGEN 83 mg/dL (7-25)
[2018-02-12 05:07] LABS: HEMATOCRIT 31.6 % (41.0-60); HEMOGLOBIN 10.8 gm/dL (12-16); MEAN CELL VOLUME 90.5 fl (81-100); MEAN CORPUSCULAR HGB CONC 34.3 pg (28.0-36.0); MEAN PLATELET VOLUME 8.3 fl; RED BLOOD COUNT 3.49 Mil/cmm (3.80-5.20); RED CELL DISTRIBUTION WIDTH 17.9 % (11.5-20.0)
[2018-02-12] MEDS: INSULIN ASPART SLIDING SCALE 100 UNITS/ML UNIT SUBQ SCH ×4 (05:10→17:59)
[2018-02-12 05:14] LABS: PLATELET COUNT 109 Th/cmm (150-400); WHITE BLOOD COUNT 21.1 Th/cmm (4.8-10.8)
[2018-02-12 05:58] LABS: BAND NEUTROPHILE 11 % (0-10); LYMPHOCYTE 7 % (20-50); MONOCYTE 3 % (2-10); NEUTROPHILS 79 % (40-80); TOTAL CELLS COUNTED 100
[2018-02-12 05:59] LABS: PLATELET ESTIMATE SLIGHT DECREASED (NORMAL)
[2018-02-12] MEDS: Budesonide 0.5 Mg/2 mL Ud HHN SCH ×2 (07:59→18:37)
[2018-02-12] MEDS: Chlorhexidine Gluconate 0.12% 15mL Mouthwash MM SCH ×2 (08:30→20:01)
[2018-02-12] MEDS: VORICONAZOLE 200 MG PO SCH ×2 (09:59→17:58)
[2018-02-12] MEDS: Pantoprazole 40 mg/Packet NG SCH (09:59)
[2018-02-12] MEDS: Multivitamin Tab PO SCH (09:59)
[2018-02-12] MEDS: Vitamin A/Vitamin D 5 gm Packet TP SCH (09:59)
[2018-02-12 13:01] LABS: HEMOGLOBIN 8.8 gm/dL (12-16); MEAN CELL VOLUME 91.3 fl (81-100); MEAN CORPUSCULAR HEMOGLOBIN 31.5 pg (27.0-31.0); MEAN CORPUSCULAR HGB CONC 34.5 pg (28.0-36.0); MEAN PLATELET VOLUME 8.7 fl; PLATELET COUNT 112 Th/cmm (150-400); RED BLOOD COUNT 2.79 Mil/cmm (3.80-5.20); RED CELL DISTRIBUTION WIDTH 17.6 % (11.5-20.0)
[2018-02-12 13:06] LABS: WHITE BLOOD COUNT 16.4 Th/cmm (4.8-10.8)
[2018-02-12 13:07] LABS: % BASOPHILS 0.4 % (0.0-2.0); % EOSINOPHILS 0.2 % (0.0-5.0); % LYMPHOCYTES 4.7 % (20.0-50.0); % MONOCYTES 2.6 % (2.0-10.0); % NEUTROPHILS 92.1 % (40.0-80.0); HEMATOCRIT 25.4 % (41.0-60); LYMPHOCYTE ABSOLUTE 0.8 Th/cmm (1.5-3.0); MONOCYTE ABSOLUTE 0.4 Th/cmm (0.3-1.0); NEUTROPHILE ABSOLUTE 15.1 Th/cmm (1.8-8.0)
[2018-02-12 13:08] LABS: BASOPHILE ABSOLUTE 0.1 Th/cumm (0-0.2)
--- NOTE | 2018-02-12 13:23 | Infectious Disease Prog Note ---
Infectious Disease Subjective - Review of Systems Service Date: 02/12/18 Subjective: No fever, s/p tracheotomy,on the ventilator support. diarrhea. Infectious Disease Objective - Results Result Diagrams: 02/13/18 04:20 02/13/18 04:20 Recent Labs: Laboratory Last Values WBC 16.4 Th/cmm (4.8-10.8) H D 02/12/18 12:20 RBC 2.79 Mil/cmm (3.80-5.20) L 02/12/18 12:20 Hgb 8.8 gm/dL (12-16) L 02/12/18 12:20 Hct 25.4 % (41.0-60) L D 02/12/18 12:20 MCV 91.3 fl (81-100) 02/12/18 12:20 MCH 31.5 pg (27.0-31.0) H 02/12/18 12:20 MCHC Differential 34.5 pg (28.0-36.0) 02/12/18 12:20 RDW 17.6 % (11.5-20.0) 02/12/18 12:20 Plt Count 112 Th/cmm (150-400) L 02/12/18 12:20 MPV 8.7 fl 02/12/18 12:20 Neutrophils % 92.1 % (40.0-80.0) H 02/12/18 12:20 Band Neutrophils % 11 % (0-10) H 02/12/18 04:10 Lymphocytes % 4.7 % (20.0-50.0) L 02/12/18 12:20 Monocytes % 2.6 % (2.0-10.0) 02/12/18 12:20 Eosinophils % 0.2 % (0.0-5.0) 02/12/18 12:20 Basophils % 0.4 % (0.0-2.0) 02/12/18 12:20 Neutrophils (Manual) 79 % (40-80) 02/12/18 04:10 Lymphocytes 7 % (20-50) L 02/12/18 04:10 Monocytes 3 % (2-10) 02/12/18 04:10 Eosinophils 0 % (0-5) 02/10/18 04:16 Basophils 0 % (0-3) 02/10/18 04:16 Toxic Granulation 1+ 02/09/18 04:17 Platelet Estimate SLIGHT DECREASED (NORMAL) 02/12/18 04:10 Platelet Morphology NORMAL (NORMAL) 02/10/18 04:16 RBC Morph Micro Appear NORMAL (NORMAL) 02/10/18 04:16 Eos Smear Source URINE 01/28/18 17:10 Eos Smear Total Cells NONE SEEN (NONE SEEN) 01/28/18 17:10 PT 10.4 SECONDS (9.5-11.5) 02/07/18 05:21 INR 1.00 (0.5-1.4) 02/07/18 05:21 PTT (Actin FS) 28.4 SECONDS (26.0-38.0) 02/07/18 05:21 Specimen Source Arterial 01/24/18 17:45 Sample Site Left Radial 01/24/18 17:45 pH 7.41 (7.35-7.45) 01/24/18 17:45 pCO2 32.0 mmHg (35.0-45.0) L 01/24/18 17:45 pO2 397.0 mmHg (80.0-100.0) H 01/24/18 17:45 HCO3 22.3 mEq/L (20.0-26.0) 01/24/18 17:45 Base Excess -3.5 mEq/L (-3.0-3.0) L 01/24/18 17:45 O2 Saturation 100.0 % (92.0-100.0) 01/24/18 17:45 Bebo Test YES 01/24/18 17:45 Vent Rate 14 01/24/18 17:45 Inspired O2 100 01/24/18 17:45 Tidal Volume 450 01/24/18 17:45 PEEP 5 01/24/18 17:45 Pressure (ins/psv/peep) NA 01/24/18 17:45 Critical Value E.BRIDGES 01/24/18 17:45 Sodium 124 mEq/L (136-145) L 02/12/18 04:10 Potassium 5.3 mEq/L (3.5-5.1) H 02/12/18 04:10 Chloride 91 mEq/L (98-107) L 02/12/18 04:10 Carbon Dioxide 21.5 mEq/L (21.0-31.0) 02/12/18 04:10 Anion Gap 16.8 (7.0-16.0) H 02/12/18 04:10 BUN 83 mg/dL (7-25) H* 02/12/18 04:10 Creatinine 2.0 mg/dL (0.6-1.2) H 02/12/18 04:10 Est GFR ( Amer) TNP 02/12/18 04:10 Est GFR (Non-Af Amer) TNP 02/12/18 04:10 BUN/Creatinine Ratio 41.5 02/12/18 04:10 Glucose 108 mg/dL (70-105) H 02/12/18 04:10 POC Glucose 107 MG/DL (70 - 105) H 02/11/18 23:27 Hemoglobin A1c % 5.1 % (4.0-6.0) 01/20/18 12:15 Plasma/Ser Osmolality 287 mOsmol/kg (280-301) 01/28/18 17:45 Whole Bld Lactic Acid 1.50 mmol/L (0.60-1.99) 01/28/18 13:40 Uric Acid 5.3 mg/dL (2.3-6.6) 01/30/18 05:06 Calcium 7.6 mg/dL (8.6-10.3) L 02/12/18 04:10 Phosphorus 3.3 mg/dL (2.5-5.0) 01/30/18 05:06 Magnesium 1.8 mg/dL (1.9-2.7) L 02/09/18 04:17 Iron 54 ug/dL (27-139) 01/20/18 12:50 TIBC 159 ug/dL (250-450) L 01/20/18 12:50 Iron Saturation 34 % (15-55) 01/20/18 12:50 Unsaturated IBC 105 ug/dL (118-369) L 01/20/18 12:50 Ferritin 1230 ng/mL (15-150) H 01/20/18 12:50 Total Bilirubin 1.1 mg/dL (0.3-1.0) H 02/12/18 04:10 Direct Bilirubin 0.07 mg/dL (0.0-0.2) 01/20/18 12:30 AST 534 U/L (13-39) H 02/12/18 04:10 ALT 60 U/L (7-52) H 02/12/18 04:10 Alkaline Phosphatase 823 U/L (34-104) H 02/12/18 04:10 Troponin I 0.03 ng/mL (0.01-0.05) 01/20/18 12:15 C-Reactive Protein 4.3 mg/dL (0.0-0.9) H 01/20/18 12:50 B-Natriuretic Peptide 185.0 pg/mL (5.0-100.0) H 01/25/18 04:20 Total Protein 4.5 gm/dL (6.0-8.3) L 02/12/18 04:10 Albumin 2.8 gm/dL (3.7-5.3) L 02/12/18 04:10 Globulin 1.7 gm/dL 02/12/18 04:10 Albumin/Globulin Ratio 1.7 (1.0-1.8) 02/12/18 04:10 Triglycerides 97 mg/dL (<150) 01/20/18 12:15 Cholesterol 195 mg/dL (<200) 01/20/18 12:15 LDL Cholesterol Direct 152 mg/dL (75-193) 01/20/18 12:15 HDL Cholesterol 40 mg/dL (23-92) 01/20/18 12:15 Lipase 108 U/L (11-82) H 01/20/18 12:15 Free T4 1.12 ng/dL (0.82-1.77) 01/20/18 12:50 TSH 0.06 uIU/ml (0.34-5.60) L 01/20/18 12:15 Urine Source ZAPIEN PORT 01/28/18 17:10 Urine Color YELLOW 01/28/18 17:10 Urine Clarity CLOUDY (CLEAR) H 01/28/18 17:10 Urine pH 6.0 (4.6 - 8.0) 01/28/18 17:10 Ur Specific Uriah 1.020 (1.005-1.030) 01/28/18 17:10 Urine Protein 100 mg/dL (NEGATIVE) H 01/28/18 17:10 Urine Glucose (UA) NEGATIVE mg/dL (NEGATIVE) 01/28/18 17:10 Urine Ketones NEGATIVE mg/dL (NEGATIVE) 01/28/18 17:10 Urine Blood MODERATE (NEGATIVE) H 01/28/18 17:10 Urine Nitrate NEGATIVE (NEGATIVE) 01/28/18 17:10 Urine Bilirubin NEGATIVE (NEGATIVE) 01/28/18 17:10 Urine Urobilinogen 0.2 E.U./dL (0.2 - 1.0) 01/28/18 17:10 Ur Leukocyte Esterase MODERATE (NEGATIVE) H 01/28/18 17:10 Urine RBC 5-10 /hpf (0-5) H 01/28/18 17:10 Urine WBC 10-25 /hpf (0-5) H 01/28/18 17:10 Ur Epithelial Cells OCCASIONAL /lpf (FEW) 01/28/18 17:10 Urine Bacteria OCCASIONAL /hpf (NONE SEEN) 01/28/18 17:10 Urine Yeast MANY /hpf (NONE SEEN) H 01/28/18 17:10 Ur Random Sodium 56 mmol/L 01/28/18 17:10 Urine Creatinine 39.0 mg/dl (28.0-217.0) 01/28/18 17:10 Stool Occult Blood NEGATIVE (NEGATIVE) 02/11/18 18:00 Vancomycin Trough 27.8 ug/mL (10-20) H 01/26/18 23:00 Random Vancomycin 22.6 ug/mL (5.0-40.0) 02/03/18 04:20 Blood Type O POSITIVE 02/11/18 08:08 Antibody Screen NEGATIVE 02/03/18 16:58 Crossmatch See Detail 02/03/18 16:58 - Physical Exam Vitals and I&O: Vital Signs Temp 97 F 02/12/18 08:00 Pulse 69 02/12/18 13:11 Resp 18 02/12/18 11:00 BP 155/72 02/12/18 11:00 Pulse Ox 100 02/12/18 13:11 Intake & Output 02/11/18 02/12/18 02/12/18 18:59 06:59 18:59 Intake Total 800 510 Output Total 11 1 Balance 789 509 Weight (lbs) 54.885 kg 54.97 kg Intake: Tube Feeding 360 360 Blood Product 190 Other 250 150 Output: Urine 10 0 Stool 1 1 Other: Stool Characteristics Soft Liquid Brown Brown Weight Source Bedscale Bedscale Active Medications: Current Medications Acetaminophen (Tylenol) 650 mg PO Q4H PRN PRN Reason: MILD PAIN OR TEMP >100.4 Stop: 03/21/18 16:07 Al Hydrox/Mg Hydrox/Simethicone (Maalox) 30 ml PO Q6HR PRN PRN Reason: GI DISTRESS Stop: 03/21/18 16:28 Albuterol/Ipratropium (Duoneb Neb) 3 ml HHN Q6HRT [facility] Stop: 03/30/18 00:59 Last Admin: 02/12/18 13:11 Dose: 3 ml Artificial Tears (Artificial Tears Ophth Soln) 1 drop EACH EYE Q2HR PRN PRN Reason: Dry Eye Stop: 03/27/18 09:28 Last Admin: 02/05/18 09:06 Dose: 1 drop Atorvastatin Calcium (Lipitor) 80 mg PO HS [facility]RI[facility] PRN Reason: Protocol Stop: 03/21/18 20:59 Last Admin: 02/11/18 21:06 Dose: 80 mg Bisacodyl (Dulcolax 10 Mg Supp) 10 mg RC DAILY PRN PRN Reason: Constipation Stop: 03/21/18 16:07 Budesonide (Pulmicort) 0.5 mg HHN BIDRT [facility] Stop: 04/01/18 18:59 Last Admin: 02/12/18 07:59 Dose: 0.5 mg Carvedilol (Coreg) 12.5 mg PO BID [facility] Stop: 03/21/18 16:59 Last Admin: 02/12/18 09:59 Dose: 12.5 mg Chlorhexidine Gluconate (Peridex) 15 ml MM 0800,2000 [facility] Stop: 03/27/18 07:59 Last Admin: 02/12/18 08:30 Dose: 15 ml Dextrose (D50w) 50 ml IVP PRN PRN PRN Reason: HYPOGLYCEMIA Stop: 03/21/18 16:07 Diltiazem HCl (Cardizem) 60 mg PO Q8HR [facility] Stop: 04/10/18 20:59 Last Admin: 02/12/18 12:18 Dose: Not Given Enalaprilat (Vasotec) 2.5 mg IVP Q6HR PRN PRN Reason: SBP ABOVE 160 Stop: 03/25/18 11:59 Last Admin: 02/07/18 13:53 Dose: 2.5 mg Glucagon (Glucagen) 1 mg IVP PRN PRN PRN Reason: HYPOGLYCEMIA Stop: 03/21/18 16:25 Hydrocortisone Sodium Succinate (Solu-Cortef) 100 mg IVP Q8HR [facility] Stop: 04/12/18 16:59 Last Admin: 02/12/18 12:28 Dose: 100 mg Phenylephrine HCl 10 mg/ (Sodium Chloride) 250 mls @ 75 mls/hr IV TITR [facility]RIET; 50 MCG/MIN PRN Reason: Protocol Stop: 03/25/18 20:14 Norepinephrine Bitartrate 4 mg (/ Sodium Chloride) 254 mls @ 15.24 mls/hr IV TITR HARRIET; 4 MCG/MIN PRN Reason: Protocol Stop: 03/26/18 08:14 Last Titration: 02/06/18 18:30 Dose: 0 mcg/min, 0 mls/hr Insulin Aspart (Novolog Insulin Sliding Scale) 0 units SUBQ Q6HR [facility]ET PRN Reason: Protocol Stop: 03/27/18 00:00 Last Admin: 02/12/18 12:26 Dose: Not Given Losartan Potassium (Cozaar) 100 mg PO DAILY [facility] Stop: 04/02/18 16:59 Last Admin: 02/12/18 09:59 Dose: 100 mg Magnesium Hydroxide (Milk Of Magnesia) 30 ml PO DAILY PRN PRN Reason: IF NO BM IN TWO DAYS Stop: 03/21/18 16:07 Metoprolol Tartrate (Lopressor) 5 mg IV Q4H PRN PRN Reason: Tachycardia Stop: 03/25/18 12:29 Miscellaneous (Misc Oral Tab) 1 tab PO BID [facility] Stop: 02/16/18 16:59 Last Admin: 02/12/18 09:59 Dose: 1 tab Multivitamins/Vitamin C (Theragran) 1 tab PO DAILY [facility] Stop: 03/22/18 08:59 Last Admin: 02/12/18 09:59 Dose: 1 tab Ondansetron HCl (Zofran Odt) 4 mg PO Q6H PRN PRN Reason: Nausea / Vomiting Stop: 03/21/18 16:07 Pantoprazole Sodium (Protonix) 40 mg NG DAILY [facility] Stop: 03/28/18 16:59 Last Admin: 02/12/18 09:59 Dose: 40 mg Prednisone (Deltasone) 10 mg PO DAILY [facility] Stop: 03/22/18 08:59 Last Admin: 02/12/18 09:59 Dose: 10 mg Sodium Phosphate (Fleet Enema) 135 ml RC DAILY PRN PRN Reason: Constipation Stop: 03/21/18 16:07 Vitamin A (Vitamin A & D) 5 gm TP DAILY [facility] Stop: 03/22/18 08:59 Last Admin: 02/12/18 09:59 Dose: 5 gm General: no acute distress, well developed, well nourished HEENT: atraumatic, normocephalic, PERRLA, EOMI Neck: supple, tracheostomy Cardiovascular: S1S2, regular Lungs: clear to percussion, rhonchi Abdomen: soft, no tender, no distended, no hepatomegaly Extremities: edema, no cyanosis, no clubbing, no lines Neurological: other (unresponsive.) - Procedures Procedures: Procedures Procedure Code Date BYPASS TRACHEA TO CUTANEOUS WITH TRACH DEV, OPEN APPROACH [id number] 01/20/[address] GASTROSTOMY TUBE 33446 01/20/18 INCISION OF WINDPIPE 06319 01/20/18 INSERT EMERGENCY AIRWAY 69547 01/20/18 INSERTION OF ENDOTRACHEAL AIRWAY INTO TRACHEA, VIA OPENING [id number] 01/20/18 INSERTION OF FEEDING DEVICE INTO STOMACH, PERC APPROACH [id number] 01/20/18 RESPIRATORY VENTILATION, GREATER THAN 96 CONSECUTIVE HOURS [id number] 01/20/18 VENT MGMT INPAT INIT DAY 97918 01/20/18 Infectious Disease Assmt/Plan - Problem List Patient Problems: All Active Problems Dementia (Acute) F03.90 ELEVATED WBC, LUNG INFILTRATES (Acute) Leukocytosis (Acute) D72.829 Pneumonia (Acute) J18.9 - Assessment Assessment: 1. Leukocytosis. suspect sepsis. 2. Pneumonia. L lung. 3. Dementia 4. S/p CP arrest. 5. Anoxic encephalopathy. 6. VDRF. 7. Increaing creatinine. LAURENCE. oliguric. 8. pulmonary aspergillosis. - Plan Plan: off antibiotics. Give V fend po BID for 4 days more. Leukocytosis, reactive, improving on repeat test. Will monitor closely. start flagyl. rectal tube. Nutritional Asmnt/Malnutr-PDOC - Dietary Evaluation Malnutrition Findings (Please click <Entered> for more info): Nutritional Asmnt/Malnutrition Start: 01/21/18 16: 32 Text: Status: Complete Freq: Document 01/21/18 16:32 LCHENG (Rec: 01/21/18 16:48 [email or web address] [email or web address]) Nutritional Asmnt/Malnutrition Patient General Information Nutritional Screening High Risk Consult Diagnosis left lung infiltrate Pertinent Medical Hx/Surgical Hx dementia, HTN, hyperlipidemia per ER notes, no H&P at this time Subjective Information Pt seen sleeping at time of visit, not able to wake up for lunch. Per [employer] OPER[employer], pt only had cereal and scrambled eggs this morning, not able to chew the Pashto toast d/t weakness. Current Diet Order/ Nutrition Support low cholesterol 300gm Pertinent Medications D5-0.45ns, novolog, megace, theragran, piperacillin, vit A &D Pertinent Labs 01/21 BUN 32, Glucose 180, POC 142-261 01/20 A1c 5.1, POC 127-165 Nutritional Hx/Data Height 1.6 m Height (Calculated Centimeters) 160.0 Current Weight (lbs) 37.648 kg Weight (Calculated Kilograms) 37.6 Weight (Calculated Grams) 20686.2 [place] Body Weight 115 Body Mass Index (BMI) 14.7 Weight Status Underweight GI Symptoms GI Symptoms None Last BM none Difficult in: None Skin Integrity/Comment: reddened to vagina and coccyx Current %PO Poor (25-49%) Estimated Nutritional Goals Calories/Kcals/Kg 25-30 Kcals Calculated 6579-3777 Protein g/k Protein Calculated 52 Fluid: ml 1300-1560ml (1ml/kcal) Nutritional Problem 2. Problem Problem chewing difficulty Etiology weakness, sleepy Signs/Symptoms: pt need for mech soft diet 1. Problem Problem altered nutrition related lab values Etiology hyperglycemia Signs/Symptoms: Glucose 180, POC 127-261 Intervention/Recommendation Comments 1. Recommend Mech soft ground diet with Boost BID to increase nutrition intake. 2. Monitor PO intake, wt, labs and skin integrity 3. F/U as high risk in 2-3 days, 01/23-01/24 Expected Outcomes/Goals Expected Outcomes/Goals 1. PO intake to meet at least 75% of nutritional needs. 2. Wt stability, skin to remain intact, labs to approach WNL.
[2018-02-12] MEDS: metroNIDAZOLE 500mg/NS 100mL 500 MG/100 ML BAG IV SCH (16:13)
[2018-02-13] MEDS: metroNIDAZOLE 500mg/NS 100mL 500 MG/100 ML BAG IV SCH ×3 (00:06→15:32)
[2018-02-13] MEDS: INSULIN ASPART SLIDING SCALE 100 UNITS/ML UNIT SUBQ SCH ×4 (00:12→18:00)
[2018-02-13] MEDS: Albuterol/Ipratropium Neb 3 ML AERS HHN SCH ×4 (00:43→18:53)
[2018-02-13 04:40] LABS: MANUAL DIFF REQUIRED? YES
[2018-02-13] MEDS: Diltiazem 30 mg Tab PO SCH ×3 (04:43→20:51)
[2018-02-13] MEDS: Hydrocortisone Sodium Succ 100 mg Vial IVP SCH ×3 (04:44→20:51)
[2018-02-13 04:46] LABS: HEMOGLOBIN 10.7 gm/dL (12-16); MEAN CELL VOLUME 90.2 fl (81-100); MEAN CORPUSCULAR HGB CONC 34.4 pg (28.0-36.0); MEAN PLATELET VOLUME 8.6 fl; PLATELET COUNT 135 Th/cmm (150-400); RED BLOOD COUNT 3.45 Mil/cmm (3.80-5.20); RED CELL DISTRIBUTION WIDTH 17.7 % (11.5-20.0)
[2018-02-13 05:01] LABS: ALB/GLOB RATIO 1.6 (1.0-1.8); ALBUMIN 2.7 gm/dL (3.7-5.3); ALKALINE PHOSPHATASE 758 U/L (34-104); ANION GAP 13.1 (7.0-16.0); BILIRUBIN,TOTAL 1.3 mg/dL (0.3-1.0); BUN - UREA NITROGEN 77 mg/dL (7-25); CALCIUM SERUM 7.7 mg/dL (8.6-10.3); CHLORIDE 94 mEq/L (98-107); CREATININE - SERUM 1.7 mg/dL (0.6-1.2); GLUCOSE 118 mg/dL (70-105); POTASSIUM SERUM 4.1 mEq/L (3.5-5.1); SGOT 493 U/L (13-39); SGPT/ALT 49 U/L (7-52); SODIUM SERUM 126 mEq/L (136-145); TOTAL PROTEIN,SERUM 4.4 gm/dL (6.0-8.3)
[2018-02-13 05:02] LABS: WHITE BLOOD COUNT 19.6 Th/cmm (4.8-10.8)
[2018-02-13 05:03] LABS: HEMATOCRIT 31.2 % (41.0-60)
[2018-02-13 05:32] LABS: BAND NEUTROPHILE 3 % (0-10); LYMPHOCYTE 6 % (20-50); MONOCYTE 1 % (2-10); NEUTROPHILS 90 % (40-80); PLATELET ESTIMATE ADEQUATE (NORMAL); TOTAL CELLS COUNTED 100
[2018-02-13] MEDS: Budesonide 0.5 Mg/2 mL Ud HHN SCH ×2 (07:50→18:53)
[2018-02-13] MEDS: Multivitamin Tab PO SCH (09:10)
[2018-02-13] MEDS: Vitamin A/Vitamin D 5 gm Packet TP SCH (09:11)
[2018-02-13] MEDS: Chlorhexidine Gluconate 0.12% 15mL Mouthwash MM SCH ×2 (09:11→20:02)
[2018-02-13] MEDS: Pantoprazole 40 mg/Packet NG SCH (09:11)
[2018-02-13] MEDS: VORICONAZOLE 200 MG PO SCH (09:13)
--- NOTE | 2018-02-13 13:53 | Internal Medicine Prog Note ---
Internal Medicine Subjective - Subjective Service Date: 02/13/18 Patient is:: other (obtunded) Per staff patient has:: tolerating meds Internal Medicine Objective - Results Result Diagrams: 02/13/18 04:20 02/13/18 04:20 Recent Labs: Laboratory Last Values WBC 19.6 Th/cmm (4.8-10.8) H 02/13/18 04:20 RBC 3.45 Mil/cmm (3.80-5.20) L 02/13/18 04:20 Hgb 10.7 gm/dL (12-16) L 02/13/18 04:20 Hct 31.2 % (41.0-60) L D 02/13/18 04:20 MCV 90.2 fl (81-100) 02/13/18 04:20 MCH 31.0 pg (27.0-31.0) 02/13/18 04:20 MCHC Differential 34.4 pg (28.0-36.0) 02/13/18 04:20 RDW 17.7 % (11.5-20.0) 02/13/18 04:20 Plt Count 135 Th/cmm (150-400) L 02/13/18 04:20 MPV 8.6 fl 02/13/18 04:20 Neutrophils % 92.1 % (40.0-80.0) H 02/12/18 12:20 Band Neutrophils % 3 % (0-10) 02/13/18 04:20 Lymphocytes % 4.7 % (20.0-50.0) L 02/12/18 12:20 Monocytes % 2.6 % (2.0-10.0) 02/12/18 12:20 Eosinophils % 0.2 % (0.0-5.0) 02/12/18 12:20 Basophils % 0.4 % (0.0-2.0) 02/12/18 12:20 Neutrophils (Manual) 90 % (40-80) H 02/13/18 04:20 Lymphocytes 6 % (20-50) L 02/13/18 04:20 Monocytes 1 % (2-10) L 02/13/18 04:20 Eosinophils 0 % (0-5) 02/10/18 04:16 Basophils 0 % (0-3) 02/10/18 04:16 Toxic Granulation 1+ 02/09/18 04:17 Platelet Estimate ADEQUATE (NORMAL) 02/13/18 04:20 Platelet Morphology NORMAL (NORMAL) 02/10/18 04:16 RBC Morph Micro Appear NORMAL (NORMAL) 02/10/18 04:16 Eos Smear Source URINE 01/28/18 17:10 Eos Smear Total Cells NONE SEEN (NONE SEEN) 01/28/18 17:10 PT 10.4 SECONDS (9.5-11.5) 02/07/18 05:21 INR 1.00 (0.5-1.4) 02/07/18 05:21 PTT (Actin FS) 28.4 SECONDS (26.0-38.0) 02/07/18 05:21 Specimen Source Arterial 01/24/18 17:45 Sample Site Left Radial 01/24/18 17:45 pH 7.41 (7.35-7.45) 01/24/18 17:45 pCO2 32.0 mmHg (35.0-45.0) L 01/24/18 17:45 pO2 397.0 mmHg (80.0-100.0) H 01/24/18 17:45 HCO3 22.3 mEq/L (20.0-26.0) 01/24/18 17:45 Base Excess -3.5 mEq/L (-3.0-3.0) L 01/24/18 17:45 O2 Saturation 100.0 % (92.0-100.0) 01/24/18 17:45 Bebo Test YES 01/24/18 17:45 Vent Rate 14 01/24/18 17:45 Inspired O2 100 01/24/18 17:45 Tidal Volume 450 01/24/18 17:45 PEEP 5 01/24/18 17:45 Pressure (ins/psv/peep) NA 01/24/18 17:45 Critical Value E.BRIDGES 01/24/18 17:45 Sodium 126 mEq/L (136-145) L 02/13/18 04:20 Potassium 4.1 mEq/L (3.5-5.1) 02/13/18 04:20 Chloride 94 mEq/L (98-107) L 02/13/18 04:20 Carbon Dioxide 23.0 mEq/L (21.0-31.0) 02/13/18 04:20 Anion Gap 13.1 (7.0-16.0) 02/13/18 04:20 BUN 77 mg/dL (7-25) H 02/13/18 04:20 Creatinine 1.7 mg/dL (0.6-1.2) H 02/13/18 04:20 Est GFR ( Amer) TNP 02/13/18 04:20 Est GFR (Non-Af Amer) TNP 02/13/18 04:20 BUN/Creatinine Ratio 45.3 02/13/18 04:20 Glucose 118 mg/dL (70-105) H 02/13/18 04:20 POC Glucose 130 MG/DL (70 - 105) H 02/13/18 12:17 Hemoglobin A1c % 5.1 % (4.0-6.0) 01/20/18 12:15 Plasma/Ser Osmolality 287 mOsmol/kg (280-301) 01/28/18 17:45 Whole Bld Lactic Acid 1.50 mmol/L (0.60-1.99) 01/28/18 13:40 Uric Acid 5.3 mg/dL (2.3-6.6) 01/30/18 05:06 Calcium 7.7 mg/dL (8.6-10.3) L 02/13/18 04:20 Phosphorus 3.3 mg/dL (2.5-5.0) 01/30/18 05:06 Magnesium 1.8 mg/dL (1.9-2.7) L 02/09/18 04:17 Iron 54 ug/dL (27-139) 01/20/18 12:50 TIBC 159 ug/dL (250-450) L 01/20/18 12:50 Iron Saturation 34 % (15-55) 01/20/18 12:50 Unsaturated IBC 105 ug/dL (118-369) L 01/20/18 12:50 Ferritin 1230 ng/mL (15-150) H 01/20/18 12:50 Total Bilirubin 1.3 mg/dL (0.3-1.0) H 02/13/18 04:20 Direct Bilirubin 0.07 mg/dL (0.0-0.2) 01/20/18 12:30 AST 493 U/L (13-39) H 02/13/18 04:20 ALT 49 U/L (7-52) 02/13/18 04:20 Alkaline Phosphatase 758 U/L (34-104) H 02/13/18 04:20 Troponin I 0.03 ng/mL (0.01-0.05) 01/20/18 12:15 C-Reactive Protein 4.3 mg/dL (0.0-0.9) H 01/20/18 12:50 B-Natriuretic Peptide 185.0 pg/mL (5.0-100.0) H 01/25/18 04:20 Total Protein 4.4 gm/dL (6.0-8.3) L 02/13/18 04:20 Albumin 2.7 gm/dL (3.7-5.3) L 02/13/18 04:20 Globulin 1.7 gm/dL 02/13/18 04:20 Albumin/Globulin Ratio 1.6 (1.0-1.8) 02/13/18 04:20 Triglycerides 97 mg/dL (<150) 01/20/18 12:15 Cholesterol 195 mg/dL (<200) 01/20/18 12:15 LDL Cholesterol Direct 152 mg/dL (75-193) 01/20/18 12:15 HDL Cholesterol 40 mg/dL (23-92) 01/20/18 12:15 Lipase 108 U/L (11-82) H 01/20/18 12:15 Free T4 1.12 ng/dL (0.82-1.77) 01/20/18 12:50 TSH 0.06 uIU/ml (0.34-5.60) L 01/20/18 12:15 Urine Source [place] 01/28/18 17:10 Urine Color YELLOW 01/28/18 17:10 Urine Clarity CLOUDY (CLEAR) H 01/28/18 17:10 Urine pH 6.0 (4.6 - 8.0) 01/28/18 17:10 Ur Specific [place] 1.020 (1.005-1.030) 01/28/18 17:10 Urine Protein 100 mg/dL (NEGATIVE) H 01/28/18 17:10 Urine Glucose (UA) NEGATIVE mg/dL (NEGATIVE) 01/28/18 17:10 Urine Ketones NEGATIVE mg/dL (NEGATIVE) 01/28/18 17:10 Urine Blood MODERATE (NEGATIVE) H 01/28/18 17:10 Urine Nitrate NEGATIVE (NEGATIVE) 01/28/18 17:10 Urine Bilirubin NEGATIVE (NEGATIVE) 01/28/18 17:10 Urine Urobilinogen 0.2 E.U./dL (0.2 - 1.0) 01/28/18 17:10 Ur Leukocyte Esterase MODERATE (NEGATIVE) H 01/28/18 17:10 Urine RBC 5-10 /hpf (0-5) H 01/28/18 17:10 Urine WBC 10-25 /hpf (0-5) H 01/28/18 17:10 Ur Epithelial Cells OCCASIONAL /lpf (FEW) 01/28/18 17:10 Urine Bacteria OCCASIONAL /hpf (NONE SEEN) 01/28/18 17:10 Urine Yeast MANY /hpf (NONE SEEN) H 01/28/18 17:10 Ur Random Sodium 56 mmol/L 01/28/18 17:10 Urine Creatinine 39.0 mg/dl (28.0-217.0) 01/28/18 17:10 Stool Occult Blood NEGATIVE (NEGATIVE) 02/11/18 18:00 Vancomycin Trough 27.8 ug/mL (10-20) H 01/26/18 23:00 Random Vancomycin 22.6 ug/mL (5.0-40.0) 02/03/18 04:20 Blood Type O POSITIVE 02/11/18 08:08 Antibody Screen NEGATIVE 02/03/18 16:58 Crossmatch See Detail 02/03/18 16:58 - Physical Exam Vitals and I&O: Vital Signs Temp 96.7 F 02/13/18 08:00 Pulse 67 02/13/18 12:21 Resp 23 02/13/18 12:00 BP 141/67 02/13/18 12:00 Pulse Ox 100 02/13/18 12:21 Intake & Output 02/12/18 02/13/18 02/13/18 18:59 06:59 18:59 Intake Total 610 710 100 Output Total 20 2100 Balance 590 -1390 100 Weight (lbs) 125 lb 123 lb 5 oz Intake: Intake, IV Amount 200 100 metroNIDAZOLE 500mg/NS 200 100 100mL 500 mg In 100 ml @ 100 mls/hr IV Q8H [facility] Rx# :[id number] Tube Feeding 360 360 Other 250 150 Output: Urine 20 100 Hemodialysis 1999 Other: # Bowel Movements 3 1 Stool Characteristics Liquid Liquid Brown Brown Weight Source Bedscale Bedscale Active Medications: Current Medications Acetaminophen (Tylenol) 650 mg PO Q4H PRN PRN Reason: MILD PAIN OR TEMP >100.4 Stop: 03/21/18 16:07 Al Hydrox/Mg Hydrox/Simethicone (Maalox) 30 ml PO Q6HR PRN PRN Reason: GI DISTRESS Stop: 03/21/18 16:28 Albuterol/Ipratropium (Duoneb Neb) 3 ml HHN Q6HRT [facility] Stop: 03/30/18 00:59 Last Admin: 02/13/18 12:21 Dose: 3 ml Artificial Tears (Artificial Tears Ophth Soln) 1 drop EACH EYE Q2HR PRN PRN Reason: Dry Eye Stop: 03/27/18 09:28 Last Admin: 02/05/18 09:06 Dose: 1 drop Atorvastatin Calcium (Lipitor) 80 mg PO HS [facility]RI[facility] PRN Reason: Protocol Stop: 03/21/18 20:59 Last Admin: 02/12/18 21:05 Dose: 80 mg Bisacodyl (Dulcolax 10 Mg Supp) 10 mg RC DAILY PRN PRN Reason: Constipation Stop: 03/21/18 16:07 Budesonide (Pulmicort) 0.5 mg HHN BIDRT [facility] Stop: 04/01/18 18:59 Last Admin: 02/13/18 07:50 Dose: 0.5 mg Carvedilol (Coreg) 12.5 mg PO BID [facility] Stop: 03/21/18 16:59 Last Admin: 02/13/18 09:10 Dose: 12.5 mg Chlorhexidine Gluconate (Peridex) 15 ml MM 0800,2000 [facility] Stop: 03/27/18 07:59 Last Admin: 02/13/18 09:11 Dose: 15 ml Dextrose (D50w) 50 ml IVP PRN PRN PRN Reason: HYPOGLYCEMIA Stop: 03/21/18 16:07 Diltiazem HCl (Cardizem) 60 mg PO Q8HR [facility] Stop: 04/10/18 20:59 Last Admin: 02/13/18 04:43 Dose: Not Given Enalaprilat (Vasotec) 2.5 mg IVP Q6HR PRN PRN Reason: SBP ABOVE 160 Stop: 03/25/18 11:59 Last Admin: 02/13/18 03:41 Dose: 2.5 mg Glucagon (Glucagen) 1 mg IVP PRN PRN PRN Reason: HYPOGLYCEMIA Stop: 03/21/18 16:25 Hydrocortisone Sodium Succinate (Solu-Cortef) 100 mg IVP Q8HR [facility] Stop: 04/12/18 16:59 Last Admin: 02/13/18 04:44 Dose: 100 mg Phenylephrine HCl 10 mg/ (Sodium Chloride) 250 mls @ 75 mls/hr IV TITR [facility]RIET; 50 MCG/MIN PRN Reason: Protocol Stop: 03/25/18 20:14 Norepinephrine Bitartrate 4 mg (/ Sodium Chloride) 254 mls @ 15.24 mls/hr IV TITR HARRIET; 4 MCG/MIN PRN Reason: Protocol Stop: 03/26/18 08:14 Last Titration: 02/06/18 18:30 Dose: 0 mcg/min, 0 mls/hr Metronidazole (Flagyl) 500 mg in 100 mls @ 100 mls/hr IV Q8H [facility] Stop: 04/13/18 15:59 Last Infusion: 02/13/18 12:10 Dose: Infused Insulin Aspart (Novolog Insulin Sliding Scale) 0 units SUBQ Q6HR [facility] PRN Reason: Protocol Stop: 03/27/18 00:00 Last Admin: 02/13/18 06:26 Dose: Not Given Losartan Potassium (Cozaar) 100 mg PO DAILY [facility] Stop: 04/02/18 16:59 Last Admin: 02/13/18 09:20 Dose: Not Given Magnesium Hydroxide (Milk Of Magnesia) 30 ml PO DAILY PRN PRN Reason: IF NO BM IN TWO DAYS Stop: 03/21/18 16:07 Metoprolol Tartrate (Lopressor) 5 mg IV Q4H PRN PRN Reason: Tachycardia Stop: 03/25/18 12:29 Miscellaneous (Misc Oral Tab) 1 tab PO BID [facility] Stop: 02/16/18 16:59 Last Admin: 02/13/18 09:13 Dose: 1 tab Multivitamins/Vitamin C (Theragran) 1 tab PO DAILY [facility] Stop: 03/22/18 08:59 Last Admin: 02/13/18 09:10 Dose: 1 tab Ondansetron HCl (Zofran Odt) 4 mg PO Q6H PRN PRN Reason: Nausea / Vomiting Stop: 03/21/18 16:07 Pantoprazole Sodium (Protonix) 40 mg NG DAILY [facility] Stop: 03/28/18 16:59 Last Admin: 02/13/18 09:11 Dose: 40 mg Prednisone (Deltasone) 10 mg PO DAILY [facility] Stop: 03/22/18 08:59 Last Admin: 02/13/18 09:10 Dose: 10 mg Sodium Phosphate (Fleet Enema) 135 ml RC DAILY PRN PRN Reason: Constipation Stop: 03/21/18 16:07 Vitamin A (Vitamin A & D) 5 gm TP DAILY [facility] Stop: 03/22/18 08:59 Last Admin: 02/13/18 09:11 Dose: 5 gm General: weak, obtunded HEENT: NC/AT, PERRLA Neck: Supple Lungs: CTAB Cardiovascular: RRR, Normal S1, Normal S2, without murmur Abdomen: soft, non-tender, non-distended, positive bowel sound - Procedures Procedures: Procedures Procedure Code Date BYPASS TRACHEA TO CUTANEOUS WITH TRACH DEV, OPEN APPROACH [id number] 01/20/[address] GASTROSTOMY TUBE 26883 01/20/18 INCISION OF WINDPIPE 12149 01/20/18 INSERT EMERGENCY AIRWAY 93329 01/20/18 INSERTION OF ENDOTRACHEAL AIRWAY INTO TRACHEA, VIA OPENING [id number] 01/20/18 INSERTION OF FEEDING DEVICE INTO STOMACH, PERC APPROACH [id number] 01/20/18 RESPIRATORY VENTILATION, GREATER THAN 96 CONSECUTIVE HOURS [id number] 01/20/18 VENT MGMT INPAT INIT DAY 14515 01/20/18 Internal Medicine Assmt/Plan - Assessment Assessment: Current Active Problems Problem Status Onset ELEVATED WBC, LUNG INFILTRATES Acute Leukocytosis Pneumonia Dementia vdrf respiratory failure - Plan Plan: Ivantibiotics as per ID continue vent support follow up labs in am continue current orders Nutritional Asmnt/Malnutr-PDOC - Dietary Evaluation Malnutrition Findings (Please click <Entered> for more info): Nutritional Asmnt/Malnutrition Start: 01/21/18 16: 32 Text: Status: Complete Freq: Document 01/21/18 16:32 JONOG (Rec: 01/21/18 16:48 [id number]) Nutritional Asmnt/Malnutrition Patient General Information Nutritional Screening High Risk Consult Diagnosis left lung infiltrate Pertinent Medical Hx/Surgical Hx dementia, HTN, hyperlipidemia per ER notes, no H&P at this time Subjective Information Pt seen sleeping at time of visit, not able to wake up for lunch. Per [employer], pt only had cereal and scrambled eggs this morning, not able to chew the [place] toast d/t weakness. Current Diet Order/ Nutrition Support low cholesterol 300gm Pertinent Medications D5-0.45ns, novolog, megace, theragran, piperacillin, vit A &D Pertinent Labs 01/21 BUN 32, Glucose 180, POC 142-261 01/20 A1c 5.1, POC 127-165 Nutritional Hx/Data Height 5 ft 3 in Height (Calculated Centimeters) 160.0 Current Weight (lbs) 83 lb Weight (Calculated Kilograms) 37.6 Weight (Calculated Grams) 04402.2 [place] Body Weight 115 Body Mass Index (BMI) 14.7 Weight Status Underweight GI Symptoms GI Symptoms None Last BM none Difficult in: None Skin Integrity/Comment: reddened to vagina and coccyx Current %PO Poor (25-49%) Estimated Nutritional Goals Calories/Kcals/Kg 25-30 Kcals Calculated 9504-9119 Protein g/k Protein Calculated 52 Fluid: ml 1300-1560ml (1ml/kcal) Nutritional Problem 2. Problem Problem chewing difficulty Etiology weakness, sleepy Signs/Symptoms: pt need for mech soft diet 1. Problem Problem altered nutrition related lab values Etiology hyperglycemia Signs/Symptoms: Glucose 180, POC 127-261 Intervention/Recommendation Comments 1. Recommend Mech soft ground diet with Boost BID to increase nutrition intake. 2. Monitor PO intake, wt, labs and skin integrity 3. F/U as high risk in 2-3 days, 01/23-01/24 Expected Outcomes/Goals Expected Outcomes/Goals 1. PO intake to meet at least 75% of nutritional needs. 2. Wt stability, skin to remain intact, labs to approach WNL.
--- NOTE | 2018-02-13 23:25 | Infectious Disease Prog Note ---
Infectious Disease Subjective - Review of Systems Service Date: 02/13/18 Subjective: No fever, s/p tracheotomy,on the ventilator support. diarrhea. Off levophed. Anasarca. Infectious Disease Objective - Results Result Diagrams: 02/13/18 04:20 02/13/18 04:20 Recent Labs: Laboratory Last Values WBC 19.6 Th/cmm (4.8-10.8) H 02/13/18 04:20 RBC 3.45 Mil/cmm (3.80-5.20) L 02/13/18 04:20 Hgb 10.7 gm/dL (12-16) L 02/13/18 04:20 Hct 31.2 % (41.0-60) L D 02/13/18 04:20 MCV 90.2 fl (81-100) 02/13/18 04:20 MCH 31.0 pg (27.0-31.0) 02/13/18 04:20 MCHC Differential 34.4 pg (28.0-36.0) 02/13/18 04:20 RDW 17.7 % (11.5-20.0) 02/13/18 04:20 Plt Count 135 Th/cmm (150-400) L 02/13/18 04:20 MPV 8.6 fl 02/13/18 04:20 Neutrophils % 92.1 % (40.0-80.0) H 02/12/18 12:20 Band Neutrophils % 3 % (0-10) 02/13/18 04:20 Lymphocytes % 4.7 % (20.0-50.0) L 02/12/18 12:20 Monocytes % 2.6 % (2.0-10.0) 02/12/18 12:20 Eosinophils % 0.2 % (0.0-5.0) 02/12/18 12:20 Basophils % 0.4 % (0.0-2.0) 02/12/18 12:20 Neutrophils (Manual) 90 % (40-80) H 02/13/18 04:20 Lymphocytes 6 % (20-50) L 02/13/18 04:20 Monocytes 1 % (2-10) L 02/13/18 04:20 Eosinophils 0 % (0-5) 02/10/18 04:16 Basophils 0 % (0-3) 02/10/18 04:16 Toxic Granulation 1+ 02/09/18 04:17 Platelet Estimate ADEQUATE (NORMAL) 02/13/18 04:20 Platelet Morphology NORMAL (NORMAL) 02/10/18 04:16 RBC Morph Micro Appear NORMAL (NORMAL) 02/10/18 04:16 Eos Smear Source URINE 01/28/18 17:10 Eos Smear Total Cells NONE SEEN (NONE SEEN) 01/28/18 17:10 PT 10.4 SECONDS (9.5-11.5) 02/07/18 05:21 INR 1.00 (0.5-1.4) 02/07/18 05:21 PTT (Actin FS) 28.4 SECONDS (26.0-38.0) 02/07/18 05:21 Specimen Source Arterial 01/24/18 17:45 Sample Site Left Radial 01/24/18 17:45 pH 7.41 (7.35-7.45) 01/24/18 17:45 pCO2 32.0 mmHg (35.0-45.0) L 01/24/18 17:45 pO2 397.0 mmHg (80.0-100.0) H 01/24/18 17:45 HCO3 22.3 mEq/L (20.0-26.0) 01/24/18 17:45 Base Excess -3.5 mEq/L (-3.0-3.0) L 01/24/18 17:45 O2 Saturation 100.0 % (92.0-100.0) 01/24/18 17:45 Bebo Test YES 01/24/18 17:45 Vent Rate 14 01/24/18 17:45 Inspired O2 100 01/24/18 17:45 Tidal Volume 450 01/24/18 17:45 PEEP 5 01/24/18 17:45 Pressure (ins/psv/peep) NA 01/24/18 17:45 Critical Value E.BRIDGES 01/24/18 17:45 Sodium 126 mEq/L (136-145) L 02/13/18 04:20 Potassium 4.1 mEq/L (3.5-5.1) 02/13/18 04:20 Chloride 94 mEq/L (98-107) L 02/13/18 04:20 Carbon Dioxide 23.0 mEq/L (21.0-31.0) 02/13/18 04:20 Anion Gap 13.1 (7.0-16.0) 02/13/18 04:20 BUN 77 mg/dL (7-25) H 02/13/18 04:20 Creatinine 1.7 mg/dL (0.6-1.2) H 02/13/18 04:20 Est GFR ( Amer) TNP 02/13/18 04:20 Est GFR (Non-Af Amer) TNP 02/13/18 04:20 BUN/Creatinine Ratio 45.3 02/13/18 04:20 Glucose 118 mg/dL (70-105) H 02/13/18 04:20 POC Glucose 130 MG/DL (70 - 105) H 02/13/18 12:17 Hemoglobin A1c % 5.1 % (4.0-6.0) 01/20/18 12:15 Plasma/Ser Osmolality 287 mOsmol/kg (280-301) 01/28/18 17:45 Whole Bld Lactic Acid 1.50 mmol/L (0.60-1.99) 01/28/18 13:40 Uric Acid 5.3 mg/dL (2.3-6.6) 01/30/18 05:06 Calcium 7.7 mg/dL (8.6-10.3) L 02/13/18 04:20 Phosphorus 3.3 mg/dL (2.5-5.0) 01/30/18 05:06 Magnesium 1.8 mg/dL (1.9-2.7) L 02/09/18 04:17 Iron 54 ug/dL (27-139) 01/20/18 12:50 TIBC 159 ug/dL (250-450) L 01/20/18 12:50 Iron Saturation 34 % (15-55) 01/20/18 12:50 Unsaturated IBC 105 ug/dL (118-369) L 01/20/18 12:50 Ferritin 1230 ng/mL (15-150) H 01/20/18 12:50 Total Bilirubin 1.3 mg/dL (0.3-1.0) H 02/13/18 04:20 Direct Bilirubin 0.07 mg/dL (0.0-0.2) 01/20/18 12:30 AST 493 U/L (13-39) H 02/13/18 04:20 ALT 49 U/L (7-52) 02/13/18 04:20 Alkaline Phosphatase 758 U/L (34-104) H 02/13/18 04:20 Troponin I 0.03 ng/mL (0.01-0.05) 01/20/18 12:15 C-Reactive Protein 4.3 mg/dL (0.0-0.9) H 01/20/18 12:50 B-Natriuretic Peptide 185.0 pg/mL (5.0-100.0) H 01/25/18 04:20 Total Protein 4.4 gm/dL (6.0-8.3) L 02/13/18 04:20 Albumin 2.7 gm/dL (3.7-5.3) L 02/13/18 04:20 Globulin 1.7 gm/dL 02/13/18 04:20 Albumin/Globulin Ratio 1.6 (1.0-1.8) 02/13/18 04:20 Triglycerides 97 mg/dL (<150) 01/20/18 12:15 Cholesterol 195 mg/dL (<200) 01/20/18 12:15 LDL Cholesterol Direct 152 mg/dL (75-193) 01/20/18 12:15 HDL Cholesterol 40 mg/dL (23-92) 01/20/18 12:15 Lipase 108 U/L (11-82) H 01/20/18 12:15 Free T4 1.12 ng/dL (0.82-1.77) 01/20/18 12:50 TSH 0.06 uIU/ml (0.34-5.60) L 01/20/18 12:15 Urine Source ZAPIEN [place] 01/28/18 17:10 Urine Color YELLOW 01/28/18 17:10 Urine Clarity CLOUDY (CLEAR) H 01/28/18 17:10 Urine pH 6.0 (4.6 - 8.0) 01/28/18 17:10 Ur Specific [place] 1.020 (1.005-1.030) 01/28/18 17:10 Urine Protein 100 mg/dL (NEGATIVE) H 01/28/18 17:10 Urine Glucose (UA) NEGATIVE mg/dL (NEGATIVE) 01/28/18 17:10 Urine Ketones NEGATIVE mg/dL (NEGATIVE) 01/28/18 17:10 Urine Blood MODERATE (NEGATIVE) H 01/28/18 17:10 Urine Nitrate NEGATIVE (NEGATIVE) 01/28/18 17:10 Urine Bilirubin NEGATIVE (NEGATIVE) 01/28/18 17:10 Urine Urobilinogen 0.2 E.U./dL (0.2 - 1.0) 01/28/18 17:10 Ur Leukocyte Esterase MODERATE (NEGATIVE) H 01/28/18 17:10 Urine RBC 5-10 /hpf (0-5) H 01/28/18 17:10 Urine WBC 10-25 /hpf (0-5) H 01/28/18 17:10 Ur Epithelial Cells OCCASIONAL /lpf (FEW) 01/28/18 17:10 Urine Bacteria OCCASIONAL /hpf (NONE SEEN) 01/28/18 17:10 Urine Yeast MANY /hpf (NONE SEEN) H 01/28/18 17:10 Ur Random Sodium 56 mmol/L 01/28/18 17:10 Urine Creatinine 39.0 mg/dl (28.0-217.0) 01/28/18 17:10 Stool Occult Blood NEGATIVE (NEGATIVE) 02/11/18 18:00 Vancomycin Trough 27.8 ug/mL (10-20) H 01/26/18 23:00 Random Vancomycin 22.6 ug/mL (5.0-40.0) 02/03/18 04:20 Blood Type O POSITIVE 02/11/18 08:08 Antibody Screen NEGATIVE 02/03/18 16:58 Crossmatch See Detail 02/03/18 16:58 - Physical Exam Vitals and I&O: Vital Signs Temp 96.8 F 02/13/18 20:00 Pulse 58 02/13/18 23:02 Resp 18 02/13/18 23:00 BP 126/59 02/13/18 23:00 Pulse Ox 100 02/13/18 23:02 Intake & Output 02/13/18 02/13/18 02/14/18 06:59 18:59 06:59 Intake Total 710 710 100 Output Total 2150 180 Balance -1440 530 100 Weight (lbs) 55.934 kg 55.792 kg Intake: Intake, IV Amount 200 100 100 metroNIDAZOLE 500mg/NS 200 100 100 100mL 500 mg In 100 ml @ 100 mls/hr IV Q8H [facility] Rx# :[id number] Tube Feeding 360 360 Other 150 250 Output: Urine 150 150 Stool 30 Hemodialysis 2000 Other: # Bowel Movements 1 Stool Characteristics Liquid Brown Weight Source Bedscale Bedscale Active Medications: Current Medications Acetaminophen (Tylenol) 650 mg PO Q4H PRN PRN Reason: MILD PAIN OR TEMP >100.4 Stop: 03/21/18 16:07 Al Hydrox/Mg Hydrox/Simethicone (Maalox) 30 ml PO Q6HR PRN PRN Reason: GI DISTRESS Stop: 03/21/18 16:28 Albuterol/Ipratropium (Duoneb Neb) 3 ml HHN Q6HRT [facility] Stop: 03/30/18 00:59 Last Admin: 02/13/18 18:53 Dose: 3 ml Artificial Tears (Artificial Tears Ophth Soln) 1 drop EACH EYE Q2HR PRN PRN Reason: Dry Eye Stop: 03/27/18 09:28 Last Admin: 02/05/18 09:06 Dose: 1 drop Atorvastatin Calcium (Lipitor) 80 mg PO HS [facility] PRN Reason: Protocol Stop: 03/21/18 20:59 Last Admin: 02/13/18 20:51 Dose: 80 mg Bisacodyl (Dulcolax 10 Mg Supp) 10 mg RC DAILY PRN PRN Reason: Constipation Stop: 03/21/18 16:07 Budesonide (Pulmicort) 0.5 mg HHN BIDRT [facility] Stop: 04/01/18 18:59 Last Admin: 02/13/18 18:53 Dose: 0.5 mg Carvedilol (Coreg) 12.5 mg PO BID [facility] Stop: 03/21/18 16:59 Last Admin: 02/13/18 17:00 Dose: Not Given Chlorhexidine Gluconate (Peridex) 15 ml MM 0800,1999 [facility] Stop: 03/27/18 07:59 Last Admin: 02/13/18 20:02 Dose: 15 ml Dextrose (D50w) 50 ml IVP PRN PRN PRN Reason: HYPOGLYCEMIA Stop: 03/21/18 16:07 Diltiazem HCl (Cardizem) 60 mg PO Q8HR [facility] Stop: 04/10/18 20:59 Last Admin: 02/13/18 20:51 Dose: Not Given Enalaprilat (Vasotec) 2.5 mg IVP Q6HR PRN PRN Reason: SBP ABOVE 160 Stop: 03/25/18 11:59 Last Admin: 02/13/18 03:41 Dose: 2.5 mg Glucagon (Glucagen) 1 mg IVP PRN PRN PRN Reason: HYPOGLYCEMIA Stop: 03/21/18 16:25 Hydrocortisone Sodium Succinate (Solu-Cortef) 100 mg IVP Q8HR [facility] Stop: 04/12/18 16:59 Last Admin: 02/13/18 20:51 Dose: 100 mg Phenylephrine HCl 10 mg/ (Sodium Chloride) 250 mls @ 75 mls/hr IV TITR [facility]; 50 MCG/MIN PRN Reason: Protocol Stop: 03/25/18 20:14 Norepinephrine Bitartrate 4 mg (/ Sodium Chloride) 254 mls @ 15.24 mls/hr IV TITR [facility]; 4 MCG/MIN PRN Reason: Protocol Stop: 03/26/18 08:14 Last Titration: 02/06/18 18:30 Dose: 0 mcg/min, 0 mls/hr Metronidazole (Flagyl) 500 mg in 100 mls @ 100 mls/hr IV Q8H [facility] Stop: 04/13/18 15:59 Last Infusion: 02/13/18 19:05 Dose: Infused Insulin Aspart (Novolog Insulin Sliding Scale) 0 units SUBQ Q6HR [facility] PRN Reason: Protocol Stop: 03/27/18 00:00 Last Admin: 02/13/18 18:00 Dose: Not Given Losartan Potassium (Cozaar) 100 mg PO DAILY [facility] Stop: 04/02/18 16:59 Last Admin: 02/13/18 09:20 Dose: Not Given Magnesium Hydroxide (Milk Of Magnesia) 30 ml PO DAILY PRN PRN Reason: IF NO BM IN TWO DAYS Stop: 03/21/18 16:07 Metoprolol Tartrate (Lopressor) 5 mg IV Q4H PRN PRN Reason: Tachycardia Stop: 03/25/18 12:29 Miscellaneous (Misc Oral Tab) 1 tab PO BID [facility] Stop: 02/16/18 16:59 Last Admin: 02/13/18 09:13 Dose: 1 tab Multivitamins/Vitamin C (Theragran) 1 tab PO DAILY [facility] Stop: 03/22/18 08:59 Last Admin: 02/13/18 09:10 Dose: 1 tab Ondansetron HCl (Zofran Odt) 4 mg PO Q6H PRN PRN Reason: Nausea / Vomiting Stop: 03/21/18 16:07 Pantoprazole Sodium (Protonix) 40 mg NG DAILY [facility] Stop: 03/28/18 16:59 Last Admin: 02/13/18 09:11 Dose: 40 mg Prednisone (Deltasone) 10 mg PO DAILY [facility] Stop: 03/22/18 08:59 Last Admin: 02/13/18 09:10 Dose: 10 mg Sodium Phosphate (Fleet Enema) 135 ml RC DAILY PRN PRN Reason: Constipation Stop: 03/21/18 16:07 Vitamin A (Vitamin A & D) 5 gm TP DAILY [facility] Stop: 03/22/18 08:59 Last Admin: 02/13/18 09:11 Dose: 5 gm General: no acute distress, well developed, well nourished HEENT: atraumatic, normocephalic, PERRLA Neck: supple, no thyromegaly Cardiovascular: S1S2, regular Lungs: clear to percussion, rhonchi Abdomen: soft, no tender, no distended, no rebound Extremities: edema, no cyanosis, no clubbing, no lines Neurological: other (Obtunded) Skin: intact - Procedures Procedures: Procedures Procedure Code Date BYPASS TRACHEA TO CUTANEOUS WITH TRACH DEV, OPEN APPROACH [id number] 01/20/[address] GASTROSTOMY TUBE 27070 01/20/18 INCISION OF WINDPIPE 29895 01/20/18 INSERT EMERGENCY AIRWAY 26443 01/20/18 INSERTION OF ENDOTRACHEAL AIRWAY INTO TRACHEA, VIA OPENING [id number] 01/20/18 INSERTION OF FEEDING DEVICE INTO STOMACH, PERC APPROACH [id number] 01/20/18 RESPIRATORY VENTILATION, GREATER THAN 96 CONSECUTIVE HOURS [id number] 01/20/18 VENT MGMT INPAT INIT DAY 86999 01/20/18 Infectious Disease Assmt/Plan - Problem List Patient Problems: All Active Problems Dementia (Acute) F03.90 ELEVATED WBC, LUNG INFILTRATES (Acute) Leukocytosis (Acute) D72.829 Pneumonia (Acute) J18.9 - Assessment Assessment: 1. Leukocytosis. suspect sepsis. 2. Pneumonia. L lung. 3. Dementia 4. S/p CP arrest. 5. Anoxic encephalopathy. 6. VDRF. 7. Increaing creatinine. LAURENCE. oliguric. 8. pulmonary aspergillosis. - Plan Plan: off antibiotics. Give V fend po BID for 2 days more. Leukocytosis, reactive, improving on repeat test. Will monitor closely. Continue flagyl. rectal tube. Nutritional Asmnt/Malnutr-PDOC - Dietary Evaluation Malnutrition Findings (Please click <Entered> for more info): Nutritional Asmnt/Malnutrition Start: 01/21/18 16: 32 Text: Status: Complete Freq: Document 01/21/18 16:32 LCHENG (Rec: 01/21/18 16:48 [email or web address] [email or web address]) Nutritional Asmnt/Malnutrition Patient General Information Nutritional Screening High Risk Consult Diagnosis left lung infiltrate Pertinent Medical Hx/Surgical Hx dementia, HTN, hyperlipidemia per ER notes, no H&P at this time Subjective Information Pt seen sleeping at time of visit, not able to wake up for lunch. Per BIOMETRICIAN, pt only had cereal and scrambled eggs this morning, not able to chew the Kinyarwanda toast d/t weakness. Current Diet Order/ Nutrition Support low cholesterol 300gm Pertinent Medications D5-0.45ns, novolog, megace, theragran, piperacillin, vit A &D Pertinent Labs 01/21 BUN 32, Glucose 180, POC 142-261 01/20 A1c 5.1, POC 127-165 Nutritional Hx/Data Height 1.6 m Height (Calculated Centimeters) 160.0 Current Weight (lbs) 37.648 kg Weight (Calculated Kilograms) 37.6 Weight (Calculated Grams) 46133.2 Cabins Body Weight 115 Body Mass Index (BMI) 14.7 Weight Status Underweight GI Symptoms GI Symptoms None Last BM none Difficult in: None Skin Integrity/Comment: reddened to vagina and coccyx Current %PO Poor (25-49%) Estimated Nutritional Goals Calories/Kcals/Kg 25-30 Kcals Calculated 3298-6492 Protein g/k Protein Calculated 52 Fluid: ml 1300-1560ml (1ml/kcal) Nutritional Problem 2. Problem Problem chewing difficulty Etiology weakness, sleepy Signs/Symptoms: pt need for mech soft diet 1. Problem Problem altered nutrition related lab values Etiology hyperglycemia Signs/Symptoms: Glucose 180, POC 127-261 Intervention/Recommendation Comments 1. Recommend Mech soft ground diet with Boost BID to increase nutrition intake. 2. Monitor PO intake, wt, labs and skin integrity 3. F/U as high risk in 2-3 days, 01/23-01/24 Expected Outcomes/Goals Expected Outcomes/Goals 1. PO intake to meet at least 75% of nutritional needs. 2. Wt stability, skin to remain intact, labs to approach WNL.
[2018-02-14] MEDS: INSULIN ASPART SLIDING SCALE 100 UNITS/ML UNIT SUBQ SCH ×5 (00:22→23:53)
[2018-02-14] MEDS: metroNIDAZOLE 500mg/NS 100mL 500 MG/100 ML BAG IV SCH ×3 (00:25→17:57)
[2018-02-14] MEDS: Albuterol/Ipratropium Neb 3 ML AERS HHN SCH ×4 (00:46→18:19)
[2018-02-14 04:36] LABS: HEMOGLOBIN 9.9 gm/dL (12-16); MEAN CELL VOLUME 89.6 fl (81-100); MEAN CORPUSCULAR HEMOGLOBIN 30.5 pg (27.0-31.0); MEAN PLATELET VOLUME 9.1 fl; PLATELET COUNT 124 Th/cmm (150-400); RED BLOOD COUNT 3.23 Mil/cmm (3.80-5.20); RED CELL DISTRIBUTION WIDTH 16.9 % (11.5-20.0)
[2018-02-14 04:57] LABS: ALB/GLOB RATIO 1.5 (1.0-1.8); ALBUMIN 2.3 gm/dL (3.7-5.3); ALKALINE PHOSPHATASE 752 U/L (34-104); ANION GAP 13.3 (7.0-16.0); BILIRUBIN,TOTAL 1.3 mg/dL (0.3-1.0); CALCIUM SERUM 7.8 mg/dL (8.6-10.3); CARBON DIOXIDE 21.6 mEq/L (21.0-31.0); CHLORIDE 95 mEq/L (98-107); CREATININE - SERUM 1.8 mg/dL (0.6-1.2); GLUCOSE 145 mg/dL (70-105); POTASSIUM SERUM 3.9 mEq/L (3.5-5.1); SGOT 505 U/L (13-39); SGPT/ALT 70 U/L (7-52); SODIUM SERUM 126 mEq/L (136-145); TOTAL PROTEIN,SERUM 3.8 gm/dL (6.0-8.3)
[2018-02-14 05:09] LABS: MANUAL DIFF REQUIRED? YES; WHITE BLOOD COUNT 16.3 Th/cmm (4.8-10.8)
[2018-02-14 05:27] LABS: BUN - UREA NITROGEN 93 mg/dL (7-25)
[2018-02-14] MEDS: Hydrocortisone Sodium Succ 100 mg Vial IVP SCH ×3 (05:44→21:40)
[2018-02-14] MEDS: Diltiazem 30 mg Tab PO SCH ×4 (05:44→21:42)
[2018-02-14 05:56] LABS: BAND NEUTROPHILE 5 % (0-10); LYMPHOCYTE 8 % (20-50); MONOCYTE 4 % (2-10); NEUTROPHILS 83 % (40-80); OVALOCYTES 1+; PLATELET ESTIMATE ADEQUATE (NORMAL); TOTAL CELLS COUNTED 100
[2018-02-14] MEDS: Budesonide 0.5 Mg/2 mL Ud HHN SCH ×2 (06:34→18:19)
[2018-02-14] MEDS: VORICONAZOLE 200 MG PO SCH ×2 (08:47→17:59)
[2018-02-14] MEDS: Pantoprazole 40 mg/Packet NG SCH (08:47)
[2018-02-14] MEDS: Multivitamin Tab PO SCH (08:47)
[2018-02-14] MEDS: Vitamin A/Vitamin D 5 gm Packet TP SCH (08:47)
[2018-02-14] MEDS: Chlorhexidine Gluconate 0.12% 15mL Mouthwash MM SCH ×2 (08:48→21:35)
--- NOTE | 2018-02-14 14:27 | Internal Medicine Prog Note ---
Internal Medicine Subjective - Subjective Service Date: 02/14/18 Patient seen and examined:: with staff Patient is:: other (obtunded) Per staff patient has:: tolerating meds Internal Medicine Objective - Results Result Diagrams: 02/14/18 04:24 02/14/18 04:24 Recent Labs: Laboratory Last Values WBC 16.3 Th/cmm (4.8-10.8) H 02/14/18 04:24 RBC 3.23 Mil/cmm (3.80-5.20) L 02/14/18 04:24 Hgb 9.9 gm/dL (12-16) L 02/14/18 04:24 Hct 29.0 % (41.0-60) L 02/14/18 04:24 MCV 89.6 fl (81-100) 02/14/18 04:24 MCH 30.5 pg (27.0-31.0) 02/14/18 04:24 MCHC Differential 34.0 pg (28.0-36.0) 02/14/18 04:24 RDW 16.9 % (11.5-20.0) 02/14/18 04:24 Plt Count 124 Th/cmm (150-400) L 02/14/18 04:24 MPV 9.1 fl 02/14/18 04:24 Neutrophils % 92.1 % (40.0-80.0) H 02/12/18 12:20 Band Neutrophils % 5 % (0-10) 02/14/18 04:24 Lymphocytes % 4.7 % (20.0-50.0) L 02/12/18 12:20 Monocytes % 2.6 % (2.0-10.0) 02/12/18 12:20 Eosinophils % 0.2 % (0.0-5.0) 02/12/18 12:20 Basophils % 0.4 % (0.0-2.0) 02/12/18 12:20 Neutrophils (Manual) 83 % (40-80) H 02/14/18 04:24 Lymphocytes 8 % (20-50) L 02/14/18 04:24 Monocytes 4 % (2-10) 02/14/18 04:24 Eosinophils 0 % (0-5) 02/10/18 04:16 Basophils 0 % (0-3) 02/10/18 04:16 Toxic Granulation 1+ 02/09/18 04:17 Platelet Estimate ADEQUATE (NORMAL) 02/14/18 04:24 Platelet Morphology NORMAL (NORMAL) 02/10/18 04:16 Ovalocytes 1+ 02/14/18 04:24 RBC Morph Micro Appear NORMAL (NORMAL) 02/10/18 04:16 Eos Smear Source URINE 01/28/18 17:10 Eos Smear Total Cells NONE SEEN (NONE SEEN) 01/28/18 17:10 PT 10.4 SECONDS (9.5-11.5) 02/07/18 05:21 INR 1.00 (0.5-1.4) 02/07/18 05:21 PTT (Actin FS) 28.4 SECONDS (26.0-38.0) 02/07/18 05:21 Specimen Source Arterial 01/24/18 17:45 Sample Site Left Radial 01/24/18 17:45 pH 7.41 (7.35-7.45) 01/24/18 17:45 pCO2 32.0 mmHg (35.0-45.0) L 01/24/18 17:45 pO2 397.0 mmHg (80.0-100.0) H 01/24/18 17:45 HCO3 22.3 mEq/L (20.0-26.0) 01/24/18 17:45 Base Excess -3.5 mEq/L (-3.0-3.0) L 01/24/18 17:45 O2 Saturation 100.0 % (92.0-100.0) 01/24/18 17:45 Bebo Test YES 01/24/18 17:45 Vent Rate 14 01/24/18 17:45 Inspired O2 100 01/24/18 17:45 Tidal Volume 450 01/24/18 17:45 PEEP 5 01/24/18 17:45 Pressure (ins/psv/peep) NA 01/24/18 17:45 Critical Value E.BRIDGES 01/24/18 17:45 Sodium 126 mEq/L (136-145) L 02/14/18 04:24 Potassium 3.9 mEq/L (3.5-5.1) 02/14/18 04:24 Chloride 95 mEq/L (98-107) L 02/14/18 04:24 Carbon Dioxide 21.6 mEq/L (21.0-31.0) 02/14/18 04:24 Anion Gap 13.3 (7.0-16.0) 02/14/18 04:24 BUN 93 mg/dL (7-25) H* 02/14/18 04:24 Creatinine 1.8 mg/dL (0.6-1.2) H 02/14/18 04:24 Est GFR ( Amer) TNP 02/14/18 04:24 Est GFR (Non-Af Amer) TNP 02/14/18 04:24 BUN/Creatinine Ratio 51.7 02/14/18 04:24 Glucose 145 mg/dL (70-105) H 02/14/18 04:24 POC Glucose 154 MG/DL (70 - 105) H 02/14/18 11:56 Hemoglobin A1c % 5.1 % (4.0-6.0) 01/20/18 12:15 Plasma/Ser Osmolality 287 mOsmol/kg (280-301) 01/28/18 17:45 Whole Bld Lactic Acid 1.50 mmol/L (0.60-1.99) 01/28/18 13:40 Uric Acid 5.3 mg/dL (2.3-6.6) 01/30/18 05:06 Calcium 7.8 mg/dL (8.6-10.3) L 02/14/18 04:24 Phosphorus 3.3 mg/dL (2.5-5.0) 01/30/18 05:06 Magnesium 1.8 mg/dL (1.9-2.7) L 02/09/18 04:17 Iron 54 ug/dL (27-139) 01/20/18 12:50 TIBC 159 ug/dL (250-450) L 01/20/18 12:50 Iron Saturation 34 % (15-55) 01/20/18 12:50 Unsaturated IBC 105 ug/dL (118-369) L 01/20/18 12:50 Ferritin 1230 ng/mL (15-150) H 01/20/18 12:50 Total Bilirubin 1.3 mg/dL (0.3-1.0) H 02/14/18 04:24 Direct Bilirubin 0.07 mg/dL (0.0-0.2) 01/20/18 12:30 AST 505 U/L (13-39) H 02/14/18 04:24 ALT 70 U/L (7-52) H 02/14/18 04:24 Alkaline Phosphatase 752 U/L (34-104) H 02/14/18 04:24 Troponin I 0.03 ng/mL (0.01-0.05) 01/20/18 12:15 C-Reactive Protein 4.3 mg/dL (0.0-0.9) H 01/20/18 12:50 B-Natriuretic Peptide 185.0 pg/mL (5.0-100.0) H 01/25/18 04:20 Total Protein 3.8 gm/dL (6.0-8.3) L 02/14/18 04:24 Albumin 2.3 gm/dL (3.7-5.3) L 02/14/18 04:24 Globulin 1.5 gm/dL 02/14/18 04:24 Albumin/Globulin Ratio 1.5 (1.0-1.8) 02/14/18 04:24 Triglycerides 97 mg/dL (<150) 01/20/18 12:15 Cholesterol 195 mg/dL (<200) 01/20/18 12:15 LDL Cholesterol Direct 152 mg/dL (75-193) 01/20/18 12:15 HDL Cholesterol 40 mg/dL (23-92) 01/20/18 12:15 Lipase 108 U/L (11-82) H 01/20/18 12:15 Free T4 1.12 ng/dL (0.82-1.77) 01/20/18 12:50 TSH 0.06 uIU/ml (0.34-5.60) L 01/20/18 12:15 Urine Source [place] 01/28/18 17:10 Urine Color YELLOW 01/28/18 17:10 Urine Clarity CLOUDY (CLEAR) H 01/28/18 17:10 Urine pH 6.0 (4.6 - 8.0) 01/28/18 17:10 Ur Specific [place] 1.020 (1.005-1.030) 01/28/18 17:10 Urine Protein 100 mg/dL (NEGATIVE) H 01/28/18 17:10 Urine Glucose (UA) NEGATIVE mg/dL (NEGATIVE) 01/28/18 17:10 Urine Ketones NEGATIVE mg/dL (NEGATIVE) 03/19/18 17:10 Urine Blood MODERATE (NEGATIVE) H 01/28/18 17:10 Urine Nitrate NEGATIVE (NEGATIVE) 01/28/18 17:10 Urine Bilirubin NEGATIVE (NEGATIVE) 01/28/18 17:10 Urine Urobilinogen 0.2 E.U./dL (0.2 - 1.0) 01/28/18 17:10 Ur Leukocyte Esterase MODERATE (NEGATIVE) H 01/28/18 17:10 Urine RBC 5-10 /hpf (0-5) H 01/28/18 17:10 Urine WBC 10-25 /hpf (0-5) H 01/28/18 17:10 Ur Epithelial Cells OCCASIONAL /lpf (FEW) 01/28/18 17:10 Urine Bacteria OCCASIONAL /hpf (NONE SEEN) 01/28/18 17:10 Urine Yeast MANY /hpf (NONE SEEN) H 01/28/18 17:10 Ur Random Sodium 56 mmol/L 01/28/18 17:10 Urine Creatinine 39.0 mg/dl (28.0-217.0) 01/28/18 17:10 Stool Occult Blood NEGATIVE (NEGATIVE) 02/11/18 18:00 Vancomycin Trough 27.8 ug/mL (10-20) H 01/26/18 23:00 Random Vancomycin 22.6 ug/mL (5.0-40.0) 02/03/18 04:20 Blood Type O POSITIVE 02/11/18 08:08 Antibody Screen NEGATIVE 02/03/18 16:58 Crossmatch See Detail 02/03/18 16:58 - Physical Exam Vitals and I&O: Vital Signs Temp 96 F 02/14/18 12:00 Pulse 67 02/14/18 13:42 Resp 18 02/14/18 13:00 BP 99/54 02/14/18 13:00 Pulse Ox 99 02/14/18 13:42 Intake & Output 02/13/18 02/14/18 02/14/18 18:59 06:59 18:59 Intake Total 710 710 100 Output Total 180 100 Balance 530 610 100 Weight (lbs) 123 lb 123 lb 2 oz Intake: Intake, IV Amount 100 200 100 metroNIDAZOLE 500mg/NS 100 200 100 100mL 500 mg In 100 ml @ 100 mls/hr IV Q8H COUNTS INCLUDE 234 BEDS AT THE [facility] Rx# :[id number] Tube Feeding 360 360 Other 250 150 Output: Urine 150 100 Stool 30 Other: Weight Source Bedscale Bedscale Active Medications: Current Medications Acetaminophen (Tylenol) 650 mg PO Q4H PRN PRN Reason: MILD PAIN OR TEMP >100.4 Stop: 03/21/18 16:07 Al Hydrox/Mg Hydrox/Simethicone (Maalox) 30 ml PO Q6HR PRN PRN Reason: GI DISTRESS Stop: 03/21/18 16:28 Albuterol/Ipratropium (Duoneb Neb) 3 ml HHN Q6HRT COUNTS INCLUDE 234 BEDS AT THE [facility] Stop: 03/30/18 00:59 Last Admin: 02/14/18 13:41 Dose: 3 ml Artificial Tears (Artificial Tears Ophth Soln) 1 drop EACH EYE Q2HR PRN PRN Reason: Dry Eye Stop: 03/27/18 09:28 Last Admin: 02/05/18 09:06 Dose: 1 drop Atorvastatin Calcium (Lipitor) 80 mg PO HS HARRIET PRN Reason: Protocol Stop: 03/21/18 20:59 Last Admin: 02/13/18 20:51 Dose: 80 mg Bisacodyl (Dulcolax 10 Mg Supp) 10 mg RC DAILY PRN PRN Reason: Constipation Stop: 03/21/18 16:07 Budesonide (Pulmicort) 0.5 mg HHN BIDRT COUNTS INCLUDE 234 BEDS AT THE [facility] Stop: 04/01/18 18:59 Last Admin: 02/14/18 06:34 Dose: 0.5 mg Carvedilol (Coreg) 12.5 mg PO BID COUNTS INCLUDE 234 BEDS AT THE [facility] Stop: 03/21/18 16:59 Last Admin: 02/14/18 11:03 Dose: Not Given Chlorhexidine Gluconate (Peridex) 15 ml MM 0800,2000 COUNTS INCLUDE 234 BEDS AT THE [facility] Stop: 03/27/18 07:59 Last Admin: 02/14/18 08:48 Dose: 15 ml Dextrose (D50w) 50 ml IVP PRN PRN PRN Reason: HYPOGLYCEMIA Stop: 03/21/18 16:07 Diltiazem HCl (Cardizem) 60 mg PO Q8HR COUNTS INCLUDE 234 BEDS AT THE [facility] Stop: 04/10/18 20:59 Last Admin: 02/14/18 05:44 Dose: Not Given Enalaprilat (Vasotec) 2.5 mg IVP Q6HR PRN PRN Reason: SBP ABOVE 160 Stop: 03/25/18 11:59 Last Admin: 02/13/18 03:41 Dose: 2.5 mg Glucagon (Glucagen) 1 mg IVP PRN PRN PRN Reason: HYPOGLYCEMIA Stop: 03/21/18 16:25 Hydrocortisone Sodium Succinate (Solu-Cortef) 100 mg IVP Q8HR COUNTS INCLUDE 234 BEDS AT THE [facility] Stop: 04/12/18 16:59 Last Admin: 02/14/18 05:44 Dose: 100 mg Phenylephrine HCl 10 mg/ (Sodium Chloride) 250 mls @ 75 mls/hr IV TITR HARRIET; 50 MCG/MIN PRN Reason: Protocol Stop: 03/25/18 20:14 Norepinephrine Bitartrate 4 mg (/ Sodium Chloride) 254 mls @ 15.24 mls/hr IV TITR HARRIET; 4 MCG/MIN PRN Reason: Protocol Stop: 03/26/18 08:14 Last Titration: 02/06/18 18:30 Dose: 0 mcg/min, 0 mls/hr Metronidazole (Flagyl) 500 mg in 100 mls @ 100 mls/hr IV Q8H HARRIET Stop: 04/13/18 15:59 Last Infusion: 02/14/18 11:52 Dose: Infused Insulin Aspart (Novolog Insulin Sliding Scale) 0 units SUBQ Q6HR HARRIET PRN Reason: Protocol Stop: 03/27/18 00:00 Last Admin: 02/14/18 11:59 Dose: 2 units Losartan Potassium (Cozaar) 100 mg PO DAILY COUNTS INCLUDE 234 BEDS AT THE [facility] Stop: 04/02/18 16:59 Last Admin: 02/14/18 11:03 Dose: Not Given Magnesium Hydroxide (Milk Of Magnesia) 30 ml PO DAILY PRN PRN Reason: IF NO BM IN TWO DAYS Stop: 03/21/18 16:07 Metoprolol Tartrate (Lopressor) 5 mg IV Q4H PRN PRN Reason: Tachycardia Stop: 03/25/18 12:29 Miscellaneous (Misc Oral Tab) 1 tab PO BID COUNTS INCLUDE 234 BEDS AT THE [facility] Stop: 02/16/18 16:59 Last Admin: 02/14/18 08:47 Dose: 1 tab Multivitamins/Vitamin C (Theragran) 1 tab PO DAILY COUNTS INCLUDE 234 BEDS AT THE [facility] Stop: 03/22/18 08:59 Last Admin: 02/14/18 08:47 Dose: 1 tab Ondansetron HCl (Zofran Odt) 4 mg PO Q6H PRN PRN Reason: Nausea / Vomiting Stop: 03/21/18 16:07 Pantoprazole Sodium (Protonix) 40 mg NG DAILY COUNTS INCLUDE 234 BEDS AT THE [facility] Stop: 03/28/18 16:59 Last Admin: 02/14/18 08:47 Dose: 40 mg Prednisone (Deltasone) 10 mg PO DAILY COUNTS INCLUDE 234 BEDS AT THE [facility] Stop: 03/22/18 08:59 Last Admin: 02/14/18 09:00 Dose: 10 mg Sodium Phosphate (Fleet Enema) 135 ml RC DAILY PRN PRN Reason: Constipation Stop: 03/21/18 16:07 Vitamin A (Vitamin A & D) 5 gm TP DAILY COUNTS INCLUDE 234 BEDS AT THE [facility] Stop: 03/22/18 08:59 Last Admin: 02/14/18 08:47 Dose: 5 gm General: weak, obtunded HEENT: NC/AT, PERRLA Neck: Supple Lungs: CTAB Cardiovascular: RRR, Normal S1, Normal S2, without murmur Abdomen: soft, non-tender, non-distended, positive bowel sound - Procedures Procedures: Procedures Procedure Code Date BYPASS TRACHEA TO CUTANEOUS WITH TRACH DEV, OPEN APPROACH [id number] 01/20/[address] GASTROSTOMY TUBE 02325 01/20/18 INCISION OF WINDPIPE 66578 01/20/18 INSERT EMERGENCY AIRWAY 69414 01/20/18 INSERTION OF ENDOTRACHEAL AIRWAY INTO TRACHEA, VIA OPENING [id number] 01/20/18 INSERTION OF FEEDING DEVICE INTO STOMACH, PERC APPROACH [id number] 01/20/18 RESPIRATORY VENTILATION, GREATER THAN 96 CONSECUTIVE HOURS [id number] 01/20/18 VENT MGMT INPAT INIT DAY 01838 01/20/18 Internal Medicine Assmt/Plan - Assessment Assessment: Current Active Problems Problem Status Onset ELEVATED WBC, LUNG INFILTRATES Acute Leukocytosis Pneumonia Dementia vdrf respiratory failure - Plan Plan: LTAC EVAL Ivantibiotics as per ID continue vent support follow up labs in am continue current orders Nutritional Asmnt/Malnutr-PDOC - Dietary Evaluation Malnutrition Findings (Please click <Entered> for more info): Nutritional Asmnt/Malnutrition Start: 01/21/18 16: 32 Text: Status: Complete Freq: Document 01/21/18 16:32 LCHENG (Rec: 01/21/18 16:48 [email or web address] [email or web address]) Nutritional Asmnt/Malnutrition Patient General Information Nutritional Screening High Risk Consult Diagnosis left lung infiltrate Pertinent Medical Hx/Surgical Hx dementia, HTN, hyperlipidemia per ER notes, no H&P at this time Subjective Information Pt seen sleeping at time of visit, not able to wake up for lunch. Per [employer]GER, pt only had cereal and scrambled eggs this morning, not able to chew the [place] toast d/t weakness. Current Diet Order/ Nutrition Support low cholesterol 300gm Pertinent Medications D5-0.45ns, novolog, megace, theragran, piperacillin, vit A &D Pertinent Labs 01/21 BUN 32, Glucose 180, POC 142-261 01/20 A1c 5.1, POC 127-165 Nutritional Hx/Data Height 5 ft 3 in Height (Calculated Centimeters) 160.0 Current Weight (lbs) 83 lb Weight (Calculated Kilograms) 37.6 Weight (Calculated Grams) 23349.2 Simon Body Weight 115 Body Mass Index (BMI) 14.7 Weight Status Underweight GI Symptoms GI Symptoms None Last BM none Difficult in: None Skin Integrity/Comment: reddened to vagina and coccyx Current %PO Poor (25-49%) Estimated Nutritional Goals Calories/Kcals/Kg 25-30 Kcals Calculated 9200-4975 Protein g/k Protein Calculated 52 Fluid: ml 1300-1560ml (1ml/kcal) Nutritional Problem 2. Problem Problem chewing difficulty Etiology weakness, sleepy Signs/Symptoms: pt need for mech soft diet 1. Problem Problem altered nutrition related lab values Etiology hyperglycemia Signs/Symptoms: Glucose 180, POC 127-261 Intervention/Recommendation Comments 1. Recommend Mech soft ground diet with Boost BID to increase nutrition intake. 2. Monitor PO intake, wt, labs and skin integrity 3. F/U as high risk in 2-3 days, 01/23-01/24 Expected Outcomes/Goals Expected Outcomes/Goals 1. PO intake to meet at least 75% of nutritional needs. 2. Wt stability, skin to remain intact, labs to approach WNL.
[2018-02-14] MEDS ORDERED: Albumin 25% 25gm/100mL 25 GM/100 ML BTL IV ONE (19:17)
--- NOTE | 2018-02-14 23:48 | Infectious Disease Prog Note ---
Infectious Disease Subjective - Review of Systems Service Date: 02/14/18 Subjective: No fever, s/p tracheotomy,on the ventilator support. diarrhea. Critically, ill Infectious Disease Objective - Results Result Diagrams: 02/16/18 04:20 02/16/18 04:20 Recent Labs: Laboratory Last Values WBC 16.3 Th/cmm (4.8-10.8) H 02/14/18 04:24 RBC 3.23 Mil/cmm (3.80-5.20) L 02/14/18 04:24 Hgb 9.9 gm/dL (12-16) L 02/14/18 04:24 Hct 29.0 % (41.0-60) L 02/14/18 04:24 MCV 89.6 fl (81-100) 02/14/18 04:24 MCH 30.5 pg (27.0-31.0) 02/14/18 04:24 MCHC Differential 34.0 pg (28.0-36.0) 02/14/18 04:24 RDW 16.9 % (11.5-20.0) 02/14/18 04:24 Plt Count 124 Th/cmm (150-400) L 02/14/18 04:24 MPV 9.1 fl 02/14/18 04:24 Neutrophils % 92.1 % (40.0-80.0) H 02/12/18 12:20 Band Neutrophils % 5 % (0-10) 02/14/18 04:24 Lymphocytes % 4.7 % (20.0-50.0) L 02/12/18 12:20 Monocytes % 2.6 % (2.0-10.0) 02/12/18 12:20 Eosinophils % 0.2 % (0.0-5.0) 02/12/18 12:20 Basophils % 0.4 % (0.0-2.0) 02/12/18 12:20 Neutrophils (Manual) 83 % (40-80) H 02/14/18 04:24 Lymphocytes 8 % (20-50) L 02/14/18 04:24 Monocytes 4 % (2-10) 02/14/18 04:24 Eosinophils 0 % (0-5) 02/10/18 04:16 Basophils 0 % (0-3) 02/10/18 04:16 Toxic Granulation 1+ 02/09/18 04:17 Platelet Estimate ADEQUATE (NORMAL) 02/14/18 04:24 Platelet Morphology NORMAL (NORMAL) 02/10/18 04:16 Ovalocytes 1+ 02/14/18 04:24 RBC Morph Micro Appear NORMAL (NORMAL) 02/10/18 04:16 Eos Smear Source URINE 01/28/18 17:10 Eos Smear Total Cells NONE SEEN (NONE SEEN) 01/28/18 17:10 PT 10.4 SECONDS (9.5-11.5) 02/07/18 05:21 INR 1.00 (0.5-1.4) 02/07/18 05:21 PTT (Actin FS) 28.4 SECONDS (26.0-38.0) 02/07/18 05:21 Specimen Source Arterial 01/24/18 17:45 Sample Site Left Radial 01/24/18 17:45 pH 7.41 (7.35-7.45) 01/24/18 17:45 pCO2 32.0 mmHg (35.0-45.0) L 01/24/18 17:45 pO2 397.0 mmHg (80.0-100.0) H 01/24/18 17:45 HCO3 22.3 mEq/L (20.0-26.0) 01/24/18 17:45 Base Excess -3.5 mEq/L (-3.0-3.0) L 01/24/18 17:45 O2 Saturation 100.0 % (92.0-100.0) 01/24/18 17:45 Bebo Test YES 01/24/18 17:45 Vent Rate 14 01/24/18 17:45 Inspired O2 100 01/24/18 17:45 Tidal Volume 450 01/24/18 17:45 PEEP 5 01/24/18 17:45 Pressure (ins/psv/peep) NA 01/24/18 17:45 Critical Value E.BRIDGES 01/24/18 17:45 Sodium 126 mEq/L (136-145) L 02/14/18 04:24 Potassium 3.9 mEq/L (3.5-5.1) 02/14/18 04:24 Chloride 95 mEq/L (98-107) L 02/14/18 04:24 Carbon Dioxide 21.6 mEq/L (21.0-31.0) 02/14/18 04:24 Anion Gap 13.3 (7.0-16.0) 02/14/18 04:24 BUN 93 mg/dL (7-25) H* 02/14/18 04:24 Creatinine 1.8 mg/dL (0.6-1.2) H 02/14/18 04:24 Est GFR ( Amer) TNP 02/14/18 04:24 Est GFR (Non-Af Amer) TNP 02/14/18 04:24 BUN/Creatinine Ratio 51.7 02/14/18 04:24 Glucose 145 mg/dL (70-105) H 02/14/18 04:24 POC Glucose 110 MG/DL (70 - 105) H 02/14/18 23:15 Hemoglobin A1c % 5.1 % (4.0-6.0) 01/20/18 12:15 Plasma/Ser Osmolality 287 mOsmol/kg (280-301) 01/28/18 17:45 Whole Bld Lactic Acid 1.50 mmol/L (0.60-1.99) 01/28/18 13:40 Uric Acid 5.3 mg/dL (2.3-6.6) 01/30/18 05:06 Calcium 7.8 mg/dL (8.6-10.3) L 02/14/18 04:24 Phosphorus 3.3 mg/dL (2.5-5.0) 01/30/18 05:06 Magnesium 1.8 mg/dL (1.9-2.7) L 02/09/18 04:17 Iron 54 ug/dL (27-139) 01/20/18 12:50 TIBC 159 ug/dL (250-450) L 01/20/18 12:50 Iron Saturation 34 % (15-55) 01/20/18 12:50 Unsaturated IBC 105 ug/dL (118-369) L 01/20/18 12:50 Ferritin 1230 ng/mL (15-150) H 01/20/18 12:50 Total Bilirubin 1.3 mg/dL (0.3-1.0) H 02/14/18 04:24 Direct Bilirubin 0.07 mg/dL (0.0-0.2) 01/20/18 12:30 AST 505 U/L (13-39) H 02/14/18 04:24 ALT 70 U/L (7-52) H 02/14/18 04:24 Alkaline Phosphatase 752 U/L (34-104) H 02/14/18 04:24 Troponin I 0.03 ng/mL (0.01-0.05) 01/20/18 12:15 C-Reactive Protein 4.3 mg/dL (0.0-0.9) H 01/20/18 12:50 B-Natriuretic Peptide 185.0 pg/mL (5.0-100.0) H 01/25/18 04:20 Total Protein 3.8 gm/dL (6.0-8.3) L 02/14/18 04:24 Albumin 2.3 gm/dL (3.7-5.3) L 02/14/18 04:24 Globulin 1.5 gm/dL 02/14/18 04:24 Albumin/Globulin Ratio 1.5 (1.0-1.8) 02/14/18 04:24 Triglycerides 97 mg/dL (<150) 01/20/18 12:15 Cholesterol 195 mg/dL (<200) 01/20/18 12:15 LDL Cholesterol Direct 152 mg/dL (75-193) 01/20/18 12:15 HDL Cholesterol 40 mg/dL (23-92) 01/20/18 12:15 Lipase 108 U/L (11-82) H 01/20/18 12:15 Free T4 1.12 ng/dL (0.82-1.77) 01/20/18 12:50 TSH 0.06 uIU/ml (0.34-5.60) L 01/20/18 12:15 Urine Source [place]APIEN [place] 01/28/18 17:10 Urine Color YELLOW 01/28/18 17:10 Urine Clarity CLOUDY (CLEAR) H 01/28/18 17:10 Urine pH 6.0 (4.6 - 8.0) 01/28/18 17:10 Ur Specific Wanda 1.020 (1.005-1.030) 01/28/18 17:10 Urine Protein 100 mg/dL (NEGATIVE) H 01/28/18 17:10 Urine Glucose (UA) NEGATIVE mg/dL (NEGATIVE) 01/28/18 17:10 Urine Ketones NEGATIVE mg/dL (NEGATIVE) 01/28/18 17:10 Urine Blood MODERATE (NEGATIVE) H 01/28/18 17:10 Urine Nitrate NEGATIVE (NEGATIVE) 01/28/18 17:10 Urine Bilirubin NEGATIVE (NEGATIVE) 01/28/18 17:10 Urine Urobilinogen 0.2 E.U./dL (0.2 - 1.0) 01/28/18 17:10 Ur Leukocyte Esterase MODERATE (NEGATIVE) H 01/28/18 17:10 Urine RBC 5-10 /hpf (0-5) H 01/28/18 17:10 Urine WBC 10-25 /hpf (0-5) H 01/28/18 17:10 Ur Epithelial Cells OCCASIONAL /lpf (FEW) 01/28/18 17:10 Urine Bacteria OCCASIONAL /hpf (NONE SEEN) 01/28/18 17:10 Urine Yeast MANY /hpf (NONE SEEN) H 01/28/18 17:10 Ur Random Sodium 56 mmol/L 01/28/18 17:10 Urine Creatinine 39.0 mg/dl (28.0-217.0) 01/28/18 17:10 Stool Occult Blood NEGATIVE (NEGATIVE) 02/11/18 18:00 Vancomycin Trough 27.8 ug/mL (10-20) H 01/26/18 23:00 Random Vancomycin 22.6 ug/mL (5.0-40.0) 02/03/18 04:20 Blood Type O POSITIVE 02/11/18 08:08 Antibody Screen NEGATIVE 02/03/18 16:58 Crossmatch See Detail 02/03/18 16:58 - Physical Exam Vitals and I&O: Vital Signs Temp 98.9 F 02/14/18 16:00 Pulse 82 02/14/18 22:59 Resp 18 02/14/18 19:00 BP 112/61 02/14/18 21:38 Pulse Ox 99 02/14/18 22:59 Intake & Output 02/14/18 02/14/18 02/15/18 06:59 18:59 06:59 Intake Total 710 100 660 Output Total 100 300 Balance 610 100 360 Weight (lbs) 55.849 kg 55.792 kg Intake: Intake, IV Amount 200 100 100 metroNIDAZOLE 500mg/NS 200 100 100 100mL 500 mg In 100 ml @ 100 mls/hr IV Q8H [facility] Rx# :[id number] Tube Feeding 360 360 Other 150 200 Output: Urine 100 100 Stool 200 Other: Weight Source Bedscale Bedscale Active Medications: Current Medications Acetaminophen (Tylenol) 650 mg PO Q4H PRN PRN Reason: MILD PAIN OR TEMP >100.4 Stop: 03/21/18 16:07 Al Hydrox/Mg Hydrox/Simethicone (Maalox) 30 ml PO Q6HR PRN PRN Reason: GI DISTRESS Stop: 03/21/18 16:28 Albuterol/Ipratropium (Duoneb Neb) 3 ml HHN Q6HRT [facility] Stop: 03/30/18 00:59 Last Admin: 02/14/18 18:19 Dose: 3 ml Artificial Tears (Artificial Tears Ophth Soln) 1 drop EACH EYE Q2HR PRN PRN Reason: Dry Eye Stop: 03/27/18 09:28 Last Admin: 02/05/18 09:06 Dose: 1 drop Atorvastatin Calcium (Lipitor) 80 mg PO HS [facility] PRN Reason: Protocol Stop: 03/21/18 20:59 Last Admin: 02/14/18 21:36 Dose: 80 mg Bisacodyl (Dulcolax 10 Mg Supp) 10 mg RC DAILY PRN PRN Reason: Constipation Stop: 03/21/18 16:07 Budesonide (Pulmicort) 0.5 mg HHN BIDRT [facility] Stop: 04/01/18 18:59 Last Admin: 02/14/18 18:19 Dose: 0.5 mg Carvedilol (Coreg) 12.5 mg PO BID [facility] Stop: 03/21/18 16:59 Last Admin: 02/14/18 17:00 Dose: Not Given Chlorhexidine Gluconate (Peridex) 15 ml MM 0800,2000 [facility] Stop: 03/27/18 07:59 Last Admin: 02/14/18 21:35 Dose: 15 ml Dextrose (D50w) 50 ml IVP PRN PRN PRN Reason: HYPOGLYCEMIA Stop: 03/21/18 16:07 Diltiazem HCl (Cardizem) 60 mg PO Q8HR [facility] Stop: 04/10/18 20:59 Last Admin: 02/14/18 21:42 Dose: Not Given Enalaprilat (Vasotec) 2.5 mg IVP Q6HR PRN PRN Reason: SBP ABOVE 160 Stop: 03/25/18 11:59 Last Admin: 02/13/18 03:41 Dose: 2.5 mg Furosemide (Lasix) 80 mg IVP Q8H [facility] Stop: 04/15/18 19:14 Last Admin: 02/14/18 21:38 Dose: 80 mg Glucagon (Glucagen) 1 mg IVP PRN PRN PRN Reason: HYPOGLYCEMIA Stop: 03/21/18 16:25 Hydrocortisone Sodium Succinate (Solu-Cortef) 100 mg IVP Q8HR [facility] Stop: 04/12/18 16:59 Last Admin: 02/14/18 21:40 Dose: 100 mg Phenylephrine HCl 10 mg/ (Sodium Chloride) 250 mls @ 75 mls/hr IV TITR [facility]; 50 MCG/MIN PRN Reason: Protocol Stop: 03/25/18 20:14 Norepinephrine Bitartrate 4 mg (/ Sodium Chloride) 254 mls @ 15.24 mls/hr IV TITR [facility]RIET; 4 MCG/MIN PRN Reason: Protocol Stop: 03/26/18 08:14 Last Titration: 02/06/18 18:30 Dose: 0 mcg/min, 0 mls/hr Metronidazole (Flagyl) 500 mg in 100 mls @ 100 mls/hr IV Q8H [facility] Stop: 04/13/18 15:59 Last Infusion: 02/14/18 19:58 Dose: Infused Insulin Aspart (Novolog Insulin Sliding Scale) 0 units SUBQ Q6HR [facility] PRN Reason: Protocol Stop: 03/27/18 00:00 Last Admin: 02/14/18 18:00 Dose: Not Given Losartan Potassium (Cozaar) 100 mg PO DAILY [facility] Stop: 04/02/18 16:59 Last Admin: 02/14/18 11:03 Dose: Not Given Magnesium Hydroxide (Milk Of Magnesia) 30 ml PO DAILY PRN PRN Reason: IF NO BM IN TWO DAYS Stop: 03/21/18 16:07 Metoprolol Tartrate (Lopressor) 5 mg IV Q4H PRN PRN Reason: Tachycardia Stop: 03/25/18 12:29 Miscellaneous (Misc Oral Tab) 1 tab PO BID [facility] Stop: 02/16/18 16:59 Last Admin: 02/14/18 17:59 Dose: 1 tab Multivitamins/Vitamin C (Theragran) 1 tab PO DAILY [facility] Stop: 03/22/18 08:59 Last Admin: 04/05/18 08:47 Dose: 1 tab Ondansetron HCl (Zofran Odt) 4 mg PO Q6H PRN PRN Reason: Nausea / Vomiting Stop: 03/21/18 16:07 Pantoprazole Sodium (Protonix) 40 mg NG DAILY [facility] Stop: 03/28/18 16:59 Last Admin: 02/14/18 08:47 Dose: 40 mg Prednisone (Deltasone) 10 mg PO DAILY [facility] Stop: 03/22/18 08:59 Last Admin: 02/14/18 09:00 Dose: 10 mg Sodium Phosphate (Fleet Enema) 135 ml RC DAILY PRN PRN Reason: Constipation Stop: 03/21/18 16:07 Vitamin A (Vitamin A & D) 5 gm TP DAILY [facility] Stop: 03/22/18 08:59 Last Admin: 02/14/18 08:47 Dose: 5 gm HEENT: atraumatic, normocephalic, PERRLA, EOMI Neck: supple, no thyromegaly Cardiovascular: S1S2, regular Lungs: clear to percussion, crackles, rhonchi Abdomen: soft, no tender, no distended, no mass Extremities: edema, no cyanosis, no clubbing Neurological: no awake, no alert Skin: intact - Procedures Procedures: Procedures Procedure Code Date BYPASS TRACHEA TO CUTANEOUS WITH TRACH DEV, OPEN APPROACH [id number] 01/20/[address] GASTROSTOMY TUBE 81171 01/20/18 INCISION OF WINDPIPE 21211 01/20/18 INSERT EMERGENCY AIRWAY 63004 01/20/18 INSERTION OF ENDOTRACHEAL AIRWAY INTO TRACHEA, VIA OPENING [id number] 01/20/18 INSERTION OF FEEDING DEVICE INTO STOMACH, PERC APPROACH [id number] 01/20/18 RESPIRATORY VENTILATION, GREATER THAN 96 CONSECUTIVE HOURS [id number] 01/20/18 VENT MGMT INPAT INIT DAY 39739 01/20/18 Infectious Disease Assmt/Plan - Assessment Assessment: 1. Leukocytosis. suspect sepsis. 2. Pneumonia. L lung. 3. Dementia 4. S/p CP arrest. 5. Anoxic encephalopathy. 6. VDRF. 7. Increaing creatinine. LAURENCE. oliguric. 8. pulmonary aspergillosis. - Plan Plan: On V fend. Leukocytosis, reactive, improving on repeat test. Will monitor closely. on flagyl. rectal tube. Nutritional Asmnt/Malnutr-PDOC - Dietary Evaluation Malnutrition Findings (Please click <Entered> for more info): Nutritional Asmnt/Malnutrition Start: 01/21/18 16: 32 Text: Status: Complete Freq: Document 01/21/18 16:32 AMITA (Rec: 01/21/18 16:48 AMITA [id number]) Nutritional Asmnt/Malnutrition Patient General Information Nutritional Screening High Risk Consult Diagnosis left lung infiltrate Pertinent Medical Hx/Surgical Hx dementia, HTN, hyperlipidemia per ER notes, no H&P at this time Subjective Information Pt seen sleeping at time of visit, not able to wake up for lunch. Per [employer], pt only had cereal and scrambled eggs this morning, not able to chew the [place] toast d/t weakness. Current Diet Order/ Nutrition Support low cholesterol 300gm Pertinent Medications D5-0.45ns, novolog, megace, theragran, piperacillin, vit A &D Pertinent Labs 01/21 BUN 32, Glucose 180, POC 142-261 01/20 A1c 5.1, POC 127-165 Nutritional Hx/Data Height 1.6 m Height (Calculated Centimeters) 160.0 Current Weight (lbs) 37.648 kg Weight (Calculated Kilograms) 37.6 Weight (Calculated Grams) 47829.2 [place] Body Weight 115 Body Mass Index (BMI) 14.7 Weight Status Underweight GI Symptoms GI Symptoms None Last BM none Difficult in: None Skin Integrity/Comment: reddened to vagina and coccyx Current %PO Poor (25-49%) Estimated Nutritional Goals Calories/Kcals/Kg 25-30 Kcals Calculated 8405-1227 Protein g/k Protein Calculated 52 Fluid: ml 1300-1560ml (1ml/kcal) Nutritional Problem 2. Problem Problem chewing difficulty Etiology weakness, sleepy Signs/Symptoms: pt need for mech soft diet 1. Problem Problem altered nutrition related lab values Etiology hyperglycemia Signs/Symptoms: Glucose 180, POC 127-261 Intervention/Recommendation Comments 1. Recommend Mech soft ground diet with Boost BID to increase nutrition intake. 2. Monitor PO intake, wt, labs and skin integrity 3. F/U as high risk in 2-3 days, 01/23-01/24 Expected Outcomes/Goals Expected Outcomes/Goals 1. PO intake to meet at least 75% of nutritional needs. 2. Wt stability, skin to remain intact, labs to approach WNL.
[2018-02-15] MEDS: metroNIDAZOLE 500mg/NS 100mL 500 MG/100 ML BAG IV SCH ×3 (00:30→17:14)
[2018-02-15] MEDS: Albuterol/Ipratropium Neb 3 ML AERS HHN SCH ×4 (00:44→19:17)
[2018-02-15] MEDS: Hydrocortisone Sodium Succ 100 mg Vial IVP SCH ×3 (04:39→21:30)
[2018-02-15 04:45] LABS: HEMATOCRIT 24.4 % (41.0-60); HEMOGLOBIN 8.4 gm/dL (12-16); RED BLOOD COUNT 2.73 Mil/cmm (3.80-5.20)
[2018-02-15 04:49] LABS: ALB/GLOB RATIO 2.3 (1.0-1.8); ALBUMIN 2.7 gm/dL (3.7-5.3); ALKALINE PHOSPHATASE 520 U/L (34-104); ANION GAP 15.6 (7.0-16.0); CALCIUM SERUM 7.6 mg/dL (8.6-10.3); CARBON DIOXIDE 20.2 mEq/L (21.0-31.0); CHLORIDE 95 mEq/L (98-107); CREATININE - SERUM 1.9 mg/dL (0.6-1.2); GLUCOSE 102 mg/dL (70-105); POTASSIUM SERUM 3.8 mEq/L (3.5-5.1); SGOT 254 U/L (13-39); SGPT/ALT 30 U/L (7-52); SODIUM SERUM 127 mEq/L (136-145); TOTAL PROTEIN,SERUM 3.9 gm/dL (6.0-8.3)
[2018-02-15 04:52] LABS: MEAN CELL VOLUME 89.2 fl (81-100); MEAN CORPUSCULAR HEMOGLOBIN 30.6 pg (27.0-31.0); MEAN CORPUSCULAR HGB CONC 34.4 pg (28.0-36.0); MEAN PLATELET VOLUME 9.2 fl; PLATELET COUNT 96 Th/cmm (150-400); RED CELL DISTRIBUTION WIDTH 17.5 % (11.5-20.0)
[2018-02-15 04:55] LABS: BUN - UREA NITROGEN 103 mg/dL (7-25)
[2018-02-15 04:57] LABS: MANUAL DIFF REQUIRED? YES; WHITE BLOOD COUNT 3.9 Th/cmm (4.8-10.8)
[2018-02-15] MEDS: Diltiazem 30 mg Tab PO SCH ×3 (04:57→21:31)
[2018-02-15] MEDS: INSULIN ASPART SLIDING SCALE 100 UNITS/ML UNIT SUBQ SCH ×3 (05:24→17:12)
[2018-02-15 06:26] LABS: BAND NEUTROPHILE 12 % (0-10); LYMPHOCYTE 20 % (20-50); MONOCYTE 4 % (2-10); NEUTROPHILS 64 % (40-80); PLATELET ESTIMATE SLIGHT DECREASED (NORMAL); TOTAL CELLS COUNTED 100
[2018-02-15] MEDS: Budesonide 0.5 Mg/2 mL Ud HHN SCH ×2 (07:58→19:17)
[2018-02-15] MEDS: Chlorhexidine Gluconate 0.12% 15mL Mouthwash MM SCH ×2 (08:00→21:31)
[2018-02-15] MEDS: Pantoprazole 40 mg/Packet NG SCH (09:00)
[2018-02-15] MEDS: Multivitamin Tab PO SCH (09:00)
[2018-02-15] MEDS: VORICONAZOLE 200 MG PO SCH ×2 (11:26→17:29)
[2018-02-15] MEDS ORDERED: Norepinephrine 4 mg/4mL Vial IV ONE (13:41)
--- NOTE | 2018-02-15 15:05 | Infectious Disease Prog Note ---
Infectious Disease Subjective - Review of Systems Service Date: 02/15/18 Subjective: No fever, s/p tracheotomy,on the ventilator support. HD was put on hold, because of hypoxia and hypotension. Infectious Disease Objective - Results Result Diagrams: 02/15/18 04:15 02/15/18 04:15 Recent Labs: Laboratory Last Values WBC 3.9 Th/cmm (4.8-10.8) L D 02/15/18 04:15 RBC 2.73 Mil/cmm (3.80-5.20) L 02/15/18 04:15 Hgb 8.4 gm/dL (12-16) L 02/15/18 04:15 Hct 24.4 % (41.0-60) L 02/15/18 04:15 MCV 89.2 fl (81-100) 02/15/18 04:15 MCH 30.6 pg (27.0-31.0) 02/15/18 04:15 MCHC Differential 34.4 pg (28.0-36.0) 02/15/18 04:15 RDW 17.5 % (11.5-20.0) 02/15/18 04:15 Plt Count 96 Th/cmm (150-400) L 02/15/18 04:15 MPV 9.2 fl 02/15/18 04:15 Neutrophils % 92.1 % (40.0-80.0) H 02/12/18 12:20 Band Neutrophils % 12 % (0-10) H 02/15/18 04:15 Lymphocytes % 4.7 % (20.0-50.0) L 02/12/18 12:20 Monocytes % 2.6 % (2.0-10.0) 02/12/18 12:20 Eosinophils % 0.2 % (0.0-5.0) 02/12/18 12:20 Basophils % 0.4 % (0.0-2.0) 02/12/18 12:20 Neutrophils (Manual) 64 % (40-80) 02/15/18 04:15 Lymphocytes 20 % (20-50) 02/15/18 04:15 Monocytes 4 % (2-10) 02/15/18 04:15 Eosinophils 0 % (0-5) 02/10/18 04:16 Basophils 0 % (0-3) 02/10/18 04:16 Toxic Granulation 1+ 02/09/18 04:17 Platelet Estimate SLIGHT DECREASED (NORMAL) 02/15/18 04:15 Platelet Morphology NORMAL (NORMAL) 02/10/18 04:16 Ovalocytes 1+ 02/14/18 04:24 RBC Morph Micro Appear NORMAL (NORMAL) 02/10/18 04:16 Eos Smear Source URINE 01/28/18 17:10 Eos Smear Total Cells NONE SEEN (NONE SEEN) 01/28/18 17:10 PT 10.4 SECONDS (9.5-11.5) 02/07/18 05:21 INR 1.00 (0.5-1.4) 02/07/18 05:21 PTT (Actin FS) 28.4 SECONDS (26.0-38.0) 02/07/18 05:21 Specimen Source Arterial 01/24/18 17:45 Sample Site Left Radial 01/24/18 17:45 pH 7.41 (7.35-7.45) 01/24/18 17:45 pCO2 32.0 mmHg (35.0-45.0) L 01/24/18 17:45 pO2 397.0 mmHg (80.0-100.0) H 01/24/18 17:45 HCO3 22.3 mEq/L (20.0-26.0) 01/24/18 17:45 Base Excess -3.5 mEq/L (-3.0-3.0) L 01/24/18 17:45 O2 Saturation 100.0 % (92.0-100.0) 01/24/18 17:45 Bebo Test YES 01/24/18 17:45 Vent Rate 14 01/24/18 17:45 Inspired O2 100 01/24/18 17:45 Tidal Volume 450 01/24/18 17:45 PEEP 5 01/24/18 17:45 Pressure (ins/psv/peep) NA 01/24/18 17:45 Critical Value E.BRIDGES 01/24/18 17:45 Sodium 127 mEq/L (136-145) L 02/15/18 04:15 Potassium 3.8 mEq/L (3.5-5.1) 02/15/18 04:15 Chloride 95 mEq/L (98-107) L 02/15/18 04:15 Carbon Dioxide 20.2 mEq/L (21.0-31.0) L 02/15/18 04:15 Anion Gap 15.6 (7.0-16.0) 02/15/18 04:15 BUN 103 mg/dL (7-25) H* 02/15/18 04:15 Creatinine 1.9 mg/dL (0.6-1.2) H 02/15/18 04:15 Est GFR ( Amer) TNP 02/15/18 04:15 Est GFR (Non-Af Amer) TNP 02/15/18 04:15 BUN/Creatinine Ratio 54.2 02/15/18 04:15 Glucose 102 mg/dL (70-105) 02/15/18 04:15 POC Glucose 78 MG/DL (70 - 105) 02/15/18 11:37 Hemoglobin A1c % 5.1 % (4.0-6.0) 01/20/18 12:15 Plasma/Ser Osmolality 287 mOsmol/kg (280-301) 01/28/18 17:45 Whole Bld Lactic Acid 1.50 mmol/L (0.60-1.99) 01/28/18 13:40 Uric Acid 5.3 mg/dL (2.3-6.6) 01/30/18 05:06 Calcium 7.6 mg/dL (8.6-10.3) L 02/15/18 04:15 Phosphorus 3.3 mg/dL (2.5-5.0) 01/30/18 05:06 Magnesium 1.8 mg/dL (1.9-2.7) L 02/09/18 04:17 Iron 54 ug/dL (27-139) 01/20/18 12:50 TIBC 159 ug/dL (250-450) L 01/20/18 12:50 Iron Saturation 34 % (15-55) 01/20/18 12:50 Unsaturated IBC 105 ug/dL (118-369) L 01/20/18 12:50 Ferritin 1230 ng/mL (15-150) H 01/20/18 12:50 Total Bilirubin 1.0 mg/dL (0.3-1.0) 02/15/18 04:15 Direct Bilirubin 0.07 mg/dL (0.0-0.2) 01/20/18 12:30 AST 254 U/L (13-39) H 02/15/18 04:15 ALT 30 U/L (7-52) 02/15/18 04:15 Alkaline Phosphatase 520 U/L (34-104) H 02/15/18 04:15 Troponin I 0.03 ng/mL (0.01-0.05) 01/20/18 12:15 C-Reactive Protein 4.3 mg/dL (0.0-0.9) H 01/20/18 12:50 B-Natriuretic Peptide 185.0 pg/mL (5.0-100.0) H 01/25/18 04:20 Total Protein 3.9 gm/dL (6.0-8.3) L 02/15/18 04:15 Albumin 2.7 gm/dL (3.7-5.3) L 02/15/18 04:15 Globulin 1.2 gm/dL 02/15/18 04:15 Albumin/Globulin Ratio 2.3 (1.0-1.8) H 02/15/18 04:15 Triglycerides 97 mg/dL (<150) 01/20/18 12:15 Cholesterol 195 mg/dL (<200) 01/20/18 12:15 LDL Cholesterol Direct 152 mg/dL (75-193) 01/20/18 12:15 HDL Cholesterol 40 mg/dL (23-92) 01/20/18 12:15 Lipase 108 U/L (11-82) H 01/20/18 12:15 Free T4 1.12 ng/dL (0.82-1.77) 01/20/18 12:50 TSH 0.06 uIU/ml (0.34-5.60) L 01/20/18 12:15 Urine Source [place] 01/28/18 17:10 Urine Color YELLOW 01/28/18 17:10 Urine Clarity CLOUDY (CLEAR) H 01/28/18 17:10 Urine pH 6.0 (4.6 - 8.0) 01/28/18 17:10 Ur Specific [place] 1.020 (1.005-1.030) 01/28/18 17:10 Urine Protein 100 mg/dL (NEGATIVE) H 01/28/18 17:10 Urine Glucose (UA) NEGATIVE mg/dL (NEGATIVE) 01/28/18 17:10 Urine Ketones NEGATIVE mg/dL (NEGATIVE) 03/19/18 17:10 Urine Blood MODERATE (NEGATIVE) H 01/28/18 17:10 Urine Nitrate NEGATIVE (NEGATIVE) 01/28/18 17:10 Urine Bilirubin NEGATIVE (NEGATIVE) 01/28/18 17:10 Urine Urobilinogen 0.2 E.U./dL (0.2 - 1.0) 01/28/18 17:10 Ur Leukocyte Esterase MODERATE (NEGATIVE) H 01/28/18 17:10 Urine RBC 5-10 /hpf (0-5) H 01/28/18 17:10 Urine WBC 10-25 /hpf (0-5) H 01/28/18 17:10 Ur Epithelial Cells OCCASIONAL /lpf (FEW) 01/28/18 17:10 Urine Bacteria OCCASIONAL /hpf (NONE SEEN) 01/28/18 17:10 Urine Yeast MANY /hpf (NONE SEEN) H 01/28/18 17:10 Ur Random Sodium 56 mmol/L 01/28/18 17:10 Urine Creatinine 39.0 mg/dl (28.0-217.0) 01/28/18 17:10 Stool Occult Blood NEGATIVE (NEGATIVE) 02/11/18 18:00 Vancomycin Trough 27.8 ug/mL (10-20) H 01/26/18 23:00 Random Vancomycin 22.6 ug/mL (5.0-40.0) 02/03/18 04:20 Blood Type O POSITIVE 02/11/18 08:08 Antibody Screen NEGATIVE 02/03/18 16:58 Crossmatch See Detail 02/03/18 16:58 - Physical Exam Vitals and I&O: Vital Signs Temp 97 F 02/15/18 12:00 Pulse 92 02/15/18 14:00 Resp 18 02/15/18 14:00 BP 110/58 02/15/18 14:00 Pulse Ox 94 02/15/18 14:00 Intake & Output 02/14/18 02/15/18 02/15/18 18:59 06:59 18:59 Intake Total 100 1120 287.333 Output Total 350 Balance 100 770 287.333 Weight (lbs) 56.382 kg Intake: Intake, IV Amount 100 200 287.333 Norepinephrine 4 mg In 254 Sodium Chloride 0.9% 250 ml @ 4 MCG/MIN 15.24 mls/ hr IV TITR [facility] Rx#: [id number] metroNIDAZOLE 500mg/NS 100 200 33.333 100mL 500 mg In 100 ml @ 100 mls/hr IV Q8H [facility] Rx# :[id number] Tube Feeding 720 Other 200 Output: Urine 100 Stool 250 Other: Weight Source Bedscale Active Medications: Current Medications Acetaminophen (Tylenol) 650 mg PO Q4H PRN PRN Reason: MILD PAIN OR TEMP >100.4 Stop: 03/21/18 16:07 Al Hydrox/Mg Hydrox/Simethicone (Maalox) 30 ml PO Q6HR PRN PRN Reason: GI DISTRESS Stop: 03/21/18 16:28 Albuterol/Ipratropium (Duoneb Neb) 3 ml HHN Q6HRT [facility] Stop: 03/30/18 00:59 Last Admin: 02/15/18 13:45 Dose: 3 ml Artificial Tears (Artificial Tears Ophth Soln) 1 drop EACH EYE Q2HR PRN PRN Reason: Dry Eye Stop: 03/27/18 09:28 Last Admin: 02/05/18 09:06 Dose: 1 drop Atorvastatin Calcium (Lipitor) 80 mg PO HS [facility] PRN Reason: Protocol Stop: 03/21/18 20:59 Last Admin: 02/14/18 21:36 Dose: 80 mg Bisacodyl (Dulcolax 10 Mg Supp) 10 mg RC DAILY PRN PRN Reason: Constipation Stop: 03/21/18 16:07 Budesonide (Pulmicort) 0.5 mg HHN BIDRT [facility] Stop: 04/01/18 18:59 Last Admin: 02/15/18 07:58 Dose: 0.5 mg Carvedilol (Coreg) 12.5 mg PO BID [facility] Stop: 03/21/18 16:59 Last Admin: 02/15/18 09:00 Dose: Not Given Chlorhexidine Gluconate (Peridex) 15 ml MM 0800,2000 [facility] Stop: 03/27/18 07:59 Last Admin: 02/15/18 08:00 Dose: 15 ml Dextrose (D50w) 50 ml IVP PRN PRN PRN Reason: HYPOGLYCEMIA Stop: 03/21/18 16:07 Diltiazem HCl (Cardizem) 60 mg PO Q8HR [facility] Stop: 04/10/18 20:59 Last Admin: 02/15/18 04:57 Dose: Not Given Enalaprilat (Vasotec) 2.5 mg IVP Q6HR PRN PRN Reason: SBP ABOVE 160 Stop: 03/25/18 11:59 Last Admin: 02/13/18 03:41 Dose: 2.5 mg Furosemide (Lasix) 80 mg IVP Q8H [facility] Stop: 04/15/18 19:14 Last Admin: 02/15/18 11:56 Dose: Not Given Glucagon (Glucagen) 1 mg IVP PRN PRN PRN Reason: HYPOGLYCEMIA Stop: 03/21/18 16:25 Hydrocortisone Sodium Succinate (Solu-Cortef) 100 mg IVP Q8HR [facility] Stop: 04/12/18 16:59 Last Admin: 02/15/18 04:39 Dose: 100 mg Phenylephrine HCl 10 mg/ (Sodium Chloride) 250 mls @ 75 mls/hr IV TITR [facility]; 50 MCG/MIN PRN Reason: Protocol Stop: 03/25/18 20:14 Norepinephrine Bitartrate 4 mg (/ Sodium Chloride) 254 mls @ 15.24 mls/hr IV TITR [facility]; 4 MCG/MIN PRN Reason: Protocol Stop: 03/26/18 08:14 Last Admin: 02/15/18 14:10 Dose: 18 mcg/min, 68.58 mls/hr Metronidazole (Flagyl) 500 mg in 100 mls @ 100 mls/hr IV Q8H [facility] Stop: 04/13/18 15:59 Last Infusion: 02/15/18 11:49 Dose: 100 mls/hr Insulin Aspart (Novolog Insulin Sliding Scale) 0 units SUBQ Q6HR [facility] PRN Reason: Protocol Stop: 03/27/18 00:00 Last Admin: 02/15/18 11:48 Dose: Not Given Losartan Potassium (Cozaar) 100 mg PO DAILY [facility] Stop: 04/02/18 16:59 Last Admin: 02/14/18 11:03 Dose: Not Given Magnesium Hydroxide (Milk Of Magnesia) 30 ml PO DAILY PRN PRN Reason: IF NO BM IN TWO DAYS Stop: 03/21/18 16:07 Metoprolol Tartrate (Lopressor) 5 mg IV Q4H PRN PRN Reason: Tachycardia Stop: 03/25/18 12:29 Miscellaneous (Misc Oral Tab) 1 tab PO BID [facility] Stop: 02/16/18 16:59 Last Admin: 02/15/18 11:26 Dose: Not Given Multivitamins/Vitamin C (Theragran) 1 tab PO DAILY [facility] Stop: 03/22/18 08:59 Last Admin: 02/14/18 08:47 Dose: 1 tab Ondansetron HCl (Zofran Odt) 4 mg PO Q6H PRN PRN Reason: Nausea / Vomiting Stop: 03/21/18 16:07 Pantoprazole Sodium (Protonix) 40 mg NG DAILY [facility] Stop: 03/28/18 16:59 Last Admin: 02/14/18 08:47 Dose: 40 mg Prednisone (Deltasone) 10 mg PO DAILY [facility] Stop: 03/22/18 08:59 Last Admin: 02/14/18 09:00 Dose: 10 mg Sodium Phosphate (Fleet Enema) 135 ml RC DAILY PRN PRN Reason: Constipation Stop: 03/21/18 16:07 Vitamin A (Vitamin A & D) 5 gm TP DAILY [facility] Stop: 03/22/18 08:59 Last Admin: 02/14/18 08:47 Dose: 5 gm General: no acute distress, well developed, well nourished HEENT: atraumatic, normocephalic, PERRLA, EOMI Neck: supple, tracheostomy, no thyromegaly Cardiovascular: S1S2, regular Lungs: clear to auscultation bilaterally, clear to percussion Abdomen: soft, no tender Extremities: edema, no cyanosis Neurological: other (Unresponsive) - Procedures Procedures: Procedures Procedure Code Date BYPASS TRACHEA TO CUTANEOUS WITH TRACH DEV, OPEN APPROACH [id number] 01/20/[address] GASTROSTOMY TUBE 43699 01/20/18 INCISION OF WINDPIPE 46631 01/20/18 INSERT EMERGENCY AIRWAY 29721 01/20/18 INSERTION OF ENDOTRACHEAL AIRWAY INTO TRACHEA, VIA OPENING [id number] 01/20/18 INSERTION OF FEEDING DEVICE INTO STOMACH, PERC APPROACH [id number] 01/20/18 RESPIRATORY VENTILATION, GREATER THAN 96 CONSECUTIVE HOURS [id number] 01/20/18 VENT MGMT INPAT INIT DAY 79017 01/20/18 Infectious Disease Assmt/Plan - Problem List Patient Problems: All Active Problems Dementia (Acute) F03.90 ELEVATED WBC, LUNG INFILTRATES (Acute) Leukocytosis (Acute) D72.829 Pneumonia (Acute) J18.9 - Assessment Assessment: 1. Leukopenia 2. Pneumonia.RLL (new). 3. Dementia 4. S/p CP arrest. 5. Anoxic encephalopathy. 6. VDRF. 7. Increaing creatinine. LAURENCE. oliguric. 8. pulmonary aspergillosis. - Plan Plan: Start vanco and zosyn. Continue flagyl. blood cs and sputum cs rectal tube. Nutritional Asmnt/Malnutr-PDOC - Dietary Evaluation Malnutrition Findings (Please click <Entered> for more info): Nutritional Asmnt/Malnutrition Start: 01/21/18 16: 32 Text: Status: Complete Freq: Document 01/21/18 16:32 LOCATED WITHIN [facility] (Rec: 01/21/18 16:48 [email or web address] [email or web address]) Nutritional Asmnt/Malnutrition Patient General Information Nutritional Screening High Risk Consult Diagnosis left lung infiltrate Pertinent Medical Hx/Surgical Hx dementia, HTN, hyperlipidemia per ER notes, no H&P at this time Subjective Information Pt seen sleeping at time of visit, not able to wake up for lunch. Per [employer], pt only had cereal and scrambled eggs this morning, not able to chew the [place] toast d/t weakness. Current Diet Order/ Nutrition Support low cholesterol 300gm Pertinent Medications D5-0.45ns, novolog, megace, theragran, piperacillin, vit A &D Pertinent Labs 01/21 BUN 32, Glucose 180, POC 142-261 01/20 A1c 5.1, POC 127-165 Nutritional Hx/Data Height 1.6 m Height (Calculated Centimeters) 160.0 Current Weight (lbs) 37.648 kg Weight (Calculated Kilograms) 37.6 Weight (Calculated Grams) 63269.2 Marissa Body Weight 115 Body Mass Index (BMI) 14.7 Weight Status Underweight GI Symptoms GI Symptoms None Last BM none Difficult in: None Skin Integrity/Comment: reddened to vagina and coccyx Current %PO Poor (25-49%) Estimated Nutritional Goals Calories/Kcals/Kg 25-30 Kcals Calculated 0895-1470 Protein g/k Protein Calculated 52 Fluid: ml 1300-1560ml (1ml/kcal) Nutritional Problem 2. Problem Problem chewing difficulty Etiology weakness, sleepy Signs/Symptoms: pt need for mech soft diet 1. Problem Problem altered nutrition related lab values Etiology hyperglycemia Signs/Symptoms: Glucose 180, POC 127-261 Intervention/Recommendation Comments 1. Recommend Mech soft ground diet with Boost BID to increase nutrition intake. 2. Monitor PO intake, wt, labs and skin integrity 3. F/U as high risk in 2-3 days, 01/23-01/24 Expected Outcomes/Goals Expected Outcomes/Goals 1. PO intake to meet at least 75% of nutritional needs. 2. Wt stability, skin to remain intact, labs to approach WNL.
[2018-02-15] MEDS: Vitamin A/Vitamin D 5 gm Packet TP SCH (17:23)
[2018-02-15] MEDS: Piperacillin/Tazobact 2.25 gm in 0.9% NS 50 ML IV SCH (17:31)
[2018-02-15] MEDS: Dextrose 50% 50 mL Abboject IVP PRN (23:53)
[2018-02-15] MEDS: Phenylephrine HCl 50 MG in Sodium Chloride 0.9% 245 ML IV SCH (23:55)
[2018-02-16] MEDS: INSULIN ASPART SLIDING SCALE 100 UNITS/ML UNIT SUBQ SCH ×3 (00:10→11:59)
[2018-02-16] MEDS: metroNIDAZOLE 500mg/NS 100mL 500 MG/100 ML BAG IV SCH ×2 (00:22→08:27)
[2018-02-16] MEDS ORDERED: Dextrose 10% 1,000 ML IV SCH (00:30)
[2018-02-16] MEDS: Piperacillin/Tazobact 2.25 gm in 0.9% NS 50 ML IV SCH ×2 (01:29→09:20)
[2018-02-16] MEDS ORDERED: Norepinephrine 4 mg/4mL Vial IV ONE ×4 (01:50→06:12)
[2018-02-16] MEDS: Albuterol/Ipratropium Neb 3 ML AERS HHN SCH ×2 (02:07→07:49)
[2018-02-16] MEDS: Diltiazem 30 mg Tab PO SCH ×2 (05:22→12:53)
[2018-02-16] MEDS: Hydrocortisone Sodium Succ 100 mg Vial IVP SCH ×2 (05:24→12:52)
[2018-02-16 05:28] LABS: ANION GAP 15.3 (7.0-16.0); BUN - UREA NITROGEN 65 mg/dL (7-25); CALCIUM SERUM 6.7 mg/dL (8.6-10.3); CARBON DIOXIDE 17.2 mEq/L (21.0-31.0); CHLORIDE 104 mEq/L (98-107); CREATININE - SERUM 1.4 mg/dL (0.6-1.2); POTASSIUM SERUM 3.5 mEq/L (3.5-5.1); SODIUM SERUM 133 mEq/L (136-145)
[2018-02-16 05:34] LABS: GLUCOSE 103 mg/dL (70-105)
[2018-02-16 05:41] LABS: % EOSINOPHILS 0.6 % (0.0-5.0); % LYMPHOCYTES 15.4 % (20.0-50.0); % MONOCYTES 0.6 % (2.0-10.0); % NEUTROPHILS 83.4 % (40.0-80.0); EOSINOPHILE ABSOLUTE 0.1 Th/cmm (0.1-0.4); HEMATOCRIT 25.4 % (41.0-60); HEMOGLOBIN 8.6 gm/dL (12-16); LYMPHOCYTE ABSOLUTE 1.4 Th/cmm (1.5-3.0); MEAN CELL VOLUME 91.3 fl (81-100); MEAN PLATELET VOLUME 9.2 fl; MONOCYTE ABSOLUTE 0.1 Th/cmm (0.3-1.0); NEUTROPHILE ABSOLUTE 7.5 Th/cmm (1.8-8.0); PLATELET COUNT 56 Th/cmm (150-400); RED BLOOD COUNT 2.78 Mil/cmm (3.80-5.20); RED CELL DISTRIBUTION WIDTH 18.8 % (11.5-20.0); WHITE BLOOD COUNT 9.1 Th/cmm (4.8-10.8)
[2018-02-16] MEDS: Phenylephrine HCl 50 MG in Sodium Chloride 0.9% 245 ML IV SCH ×2 (06:08→11:28)
[2018-02-16] MEDS: Budesonide 0.5 Mg/2 mL Ud HHN SCH (07:50)
[2018-02-16] MEDS: Chlorhexidine Gluconate 0.12% 15mL Mouthwash MM SCH (08:28)
--- NOTE | 2018-02-16 09:04 | Infectious Disease Prog Note ---
Infectious Disease Subjective - Review of Systems Service Date: 02/16/18 Subjective: No fever, s/p tracheotomy,on the ventilator support. Infectious Disease Objective - Results Result Diagrams: 02/16/18 04:20 02/16/18 04:20 Recent Labs: Laboratory Last Values WBC 9.1 Th/cmm (4.8-10.8) 02/16/18 04:20 RBC 2.78 Mil/cmm (3.80-5.20) L 02/16/18 04:20 Hgb 8.6 gm/dL (12-16) L 02/16/18 04:20 Hct 25.4 % (41.0-60) L 02/16/18 04:20 MCV 91.3 fl (81-100) 02/16/18 04:20 MCH 31.0 pg (27.0-31.0) 02/16/18 04:20 MCHC Differential 34.0 pg (28.0-36.0) 02/16/18 04:20 RDW 18.8 % (11.5-20.0) 02/16/18 04:20 Plt Count 56 Th/cmm (150-400) L 02/16/18 04:20 MPV 9.2 fl 02/16/18 04:20 Neutrophils % 83.4 % (40.0-80.0) H 02/16/18 04:20 Band Neutrophils % 12 % (0-10) H 02/15/18 04:15 Lymphocytes % 15.4 % (20.0-50.0) L 02/16/18 04:20 Monocytes % 0.6 % (2.0-10.0) L 02/16/18 04:20 Eosinophils % 0.6 % (0.0-5.0) 02/16/18 04:20 Basophils % 0.0 % (0.0-2.0) 02/16/18 04:20 Neutrophils (Manual) 64 % (40-80) 02/15/18 04:15 Lymphocytes 20 % (20-50) 02/15/18 04:15 Monocytes 4 % (2-10) 02/15/18 04:15 Eosinophils 0 % (0-5) 02/10/18 04:16 Basophils 0 % (0-3) 02/10/18 04:16 Toxic Granulation 1+ 02/09/18 04:17 Platelet Estimate SLIGHT DECREASED (NORMAL) 02/15/18 04:15 Platelet Morphology NORMAL (NORMAL) 02/10/18 04:16 Ovalocytes 1+ 02/14/18 04:24 RBC Morph Micro Appear NORMAL (NORMAL) 02/10/18 04:16 Eos Smear Source URINE 01/28/18 17:10 Eos Smear Total Cells NONE SEEN (NONE SEEN) 01/28/18 17:10 PT 10.4 SECONDS (9.5-11.5) 02/07/18 05:21 INR 1.00 (0.5-1.4) 02/07/18 05:21 PTT (Actin FS) 28.4 SECONDS (26.0-38.0) 02/07/18 05:21 Specimen Source Arterial 02/15/18 16:34 Sample Site RB 02/15/18 16:34 pH 7.30 (7.35-7.45) L 02/15/18 16:34 pCO2 44.0 mmHg (35.0-45.0) 02/15/18 16:34 pO2 72.0 mmHg (80.0-100.0) L 02/15/18 16:34 HCO3 21.1 mEq/L (20.0-26.0) 02/15/18 16:34 Base Excess -4.7 mEq/L (-3.0-3.0) L 02/15/18 16:34 O2 Saturation 92.0 % (92.0-100.0) 02/15/18 16:34 Bebo Test NA 02/15/18 16:34 Vent Rate 18 02/15/18 16:34 Inspired O2 80 02/15/18 16:34 Tidal Volume 350 02/15/18 16:34 PEEP 8 02/15/18 16:34 Pressure (ins/psv/peep) NA 02/15/18 16:34 Critical Value E.BRIDGES 02/15/18 16:34 Sodium 133 mEq/L (136-145) L 02/16/18 04:20 Potassium 3.5 mEq/L (3.5-5.1) 02/16/18 04:20 Chloride 104 mEq/L (98-107) 02/16/18 04:20 Carbon Dioxide 17.2 mEq/L (21.0-31.0) L 02/16/18 04:20 Anion Gap 15.3 (7.0-16.0) 02/16/18 04:20 BUN 65 mg/dL (7-25) H 02/16/18 04:20 Creatinine 1.4 mg/dL (0.6-1.2) H 02/16/18 04:20 Est GFR ( Amer) TNP 02/16/18 04:20 Est GFR (Non-Af Amer) TNP 02/16/18 04:20 BUN/Creatinine Ratio 46.4 02/16/18 04:20 Glucose 103 mg/dL (70-105) D 02/16/18 04:20 POC Glucose 108 MG/DL (70 - 105) H 02/16/18 05:43 Hemoglobin A1c % 5.1 % (4.0-6.0) 01/20/18 12:15 Plasma/Ser Osmolality 287 mOsmol/kg (280-301) 01/28/18 17:45 Whole Bld Lactic Acid 4.89 mmol/L (0.60-1.99) H* 02/15/18 20:18 Uric Acid 5.3 mg/dL (2.3-6.6) 01/30/18 05:06 Calcium 6.7 mg/dL (8.6-10.3) L 02/16/18 04:20 Phosphorus 3.3 mg/dL (2.5-5.0) 01/30/18 05:06 Magnesium 1.8 mg/dL (1.9-2.7) L 02/09/18 04:17 Iron 54 ug/dL (27-139) 01/20/18 12:50 TIBC 159 ug/dL (250-450) L 01/20/18 12:50 Iron Saturation 34 % (15-55) 01/20/18 12:50 Unsaturated IBC 105 ug/dL (118-369) L 01/20/18 12:50 Ferritin 1230 ng/mL (15-150) H 01/20/18 12:50 Total Bilirubin 1.0 mg/dL (0.3-1.0) 02/15/18 04:15 Direct Bilirubin 0.07 mg/dL (0.0-0.2) 01/20/18 12:30 AST 254 U/L (13-39) H 02/15/18 04:15 ALT 30 U/L (7-52) 02/15/18 04:15 Alkaline Phosphatase 520 U/L (34-104) H 02/15/18 04:15 Troponin I 0.03 ng/mL (0.01-0.05) 01/20/18 12:15 C-Reactive Protein 4.3 mg/dL (0.0-0.9) H 01/20/18 12:50 B-Natriuretic Peptide 185.0 pg/mL (5.0-100.0) H 01/25/18 04:20 Total Protein 3.9 gm/dL (6.0-8.3) L 02/15/18 04:15 Albumin 2.7 gm/dL (3.7-5.3) L 02/15/18 04:15 Globulin 1.2 gm/dL 02/15/18 04:15 Albumin/Globulin Ratio 2.3 (1.0-1.8) H 02/15/18 04:15 Triglycerides 97 mg/dL (<150) 01/20/18 12:15 Cholesterol 195 mg/dL (<200) 01/20/18 12:15 LDL Cholesterol Direct 152 mg/dL (75-193) 01/20/18 12:15 HDL Cholesterol 40 mg/dL (23-92) 01/20/18 12:15 Lipase 108 U/L (11-82) H 01/20/18 12:15 Free T4 1.12 ng/dL (0.82-1.77) 01/20/18 12:50 TSH 0.06 uIU/ml (0.34-5.60) L 01/20/18 12:15 Urine Source [place] 01/28/18 17:10 Urine Color YELLOW 01/28/18 17:10 Urine Clarity CLOUDY (CLEAR) H 01/28/18 17:10 Urine pH 6.0 (4.6 - 8.0) 01/28/18 17:10 Ur Specific [place] 1.020 (1.005-1.030) 01/28/18 17:10 Urine Protein 100 mg/dL (NEGATIVE) H 01/28/18 17:10 Urine Glucose (UA) NEGATIVE mg/dL (NEGATIVE) 01/28/18 17:10 Urine Ketones NEGATIVE mg/dL (NEGATIVE) 01/28/18 17:10 Urine Blood MODERATE (NEGATIVE) H 01/28/18 17:10 Urine Nitrate NEGATIVE (NEGATIVE) 01/28/18 17:10 Urine Bilirubin NEGATIVE (NEGATIVE) 01/28/18 17:10 Urine Urobilinogen 0.2 E.U./dL (0.2 - 1.0) 01/28/18 17:10 Ur Leukocyte Esterase MODERATE (NEGATIVE) H 01/28/18 17:10 Urine RBC 5-10 /hpf (0-5) H 01/28/18 17:10 Urine WBC 10-25 /hpf (0-5) H 01/28/18 17:10 Ur Epithelial Cells OCCASIONAL /lpf (FEW) 01/28/18 17:10 Urine Bacteria OCCASIONAL /hpf (NONE SEEN) 01/28/18 17:10 Urine Yeast MANY /hpf (NONE SEEN) H 01/28/18 17:10 Ur Random Sodium 56 mmol/L 01/28/18 17:10 Urine Creatinine 39.0 mg/dl (28.0-217.0) 01/28/18 17:10 Stool Occult Blood NEGATIVE (NEGATIVE) 02/11/18 18:00 Vancomycin Trough 27.8 ug/mL (10-20) H 01/26/18 23:00 Random Vancomycin 22.6 ug/mL (5.0-40.0) 02/03/18 04:20 Blood Type O POSITIVE 02/11/18 08:08 Antibody Screen NEGATIVE 02/03/18 16:58 Crossmatch See Detail 02/03/18 16:58 - Physical Exam Vitals and I&O: Vital Signs Temp 97.4 F 02/16/18 08:00 Pulse 86 02/16/18 08:00 Resp 28 02/16/18 08:00 BP 95/52 02/16/18 08:00 Pulse Ox 94 02/16/18 08:00 Intake & Output 02/15/18 02/16/18 02/16/18 18:59 06:59 18:59 Intake Total 814.247 4327.695 Output Total 190 Balance 577.478 7916.695 Weight (lbs) 56.79 kg Intake: Intake, IV Amount 864.498 0662.69 Norepinephrine 4 mg In 431.165 483.87 Sodium Chloride 0.9% 250 ml @ 4 MCG/MIN 15.24 mls/ hr IV TITR [facility] Rx#: [id number] Norepinephrine 8 mg In 499.375 Dextrose 5% 242 ml @ 30 MCG/MIN 56.25 mls/hr IV TITR PRN Rx#:[id number] Phenylephrine HCl 10 mg 490 In Sodium Chloride 0.9% 250 ml @ 50 MCG/MIN 75 mls/hr IV TITR [facility] Rx#: [id number] Phenylephrine HCl 50 mg 236.45 In Sodium Chloride 0.9% 245 ml @ 100 MCG/MIN 30 mls/hr IV TITR [facility] Rx#: [id number] Piperacillin Sodium/ 100 Tazobact 2.25 gm In Sodium Chloride 0.9% 50 ml @ 100 mls/hr IV Q8H [facility] Rx#:[id number] metroNIDAZOLE 500mg/NS 100.000 200 100mL 500 mg In 100 ml @ 100 mls/hr IV Q8H [facility] Rx# :[id number] Tube Feeding 550 Output: Urine 40 Stool 150 Other: Stool Characteristics Liquid Brown Black Weight Source Bedscale Active Medications: Current Medications Acetaminophen (Tylenol) 650 mg PO Q4H PRN PRN Reason: MILD PAIN OR TEMP >100.4 Stop: 03/21/18 16:07 Al Hydrox/Mg Hydrox/Simethicone (Maalox) 30 ml PO Q6HR PRN PRN Reason: GI DISTRESS Stop: 03/21/18 16:28 Albuterol/Ipratropium (Duoneb Neb) 3 ml HHN Q6HRT [facility] Stop: 03/30/18 00:59 Last Admin: 02/16/18 07:49 Dose: 3 ml Artificial Tears (Artificial Tears Ophth Soln) 1 drop EACH EYE Q2HR PRN PRN Reason: Dry Eye Stop: 03/27/18 09:28 Last Admin: 02/05/18 09:06 Dose: 1 drop Atorvastatin Calcium (Lipitor) 80 mg PO HS [facility] PRN Reason: Protocol Stop: 03/21/18 20:59 Last Admin: 02/15/18 21:30 Dose: 80 mg Bisacodyl (Dulcolax 10 Mg Supp) 10 mg RC DAILY PRN PRN Reason: Constipation Stop: 03/21/18 16:07 Budesonide (Pulmicort) 0.5 mg HHN BIDRT [facility] Stop: 04/01/18 18:59 Last Admin: 02/16/18 07:50 Dose: 0.5 mg Carvedilol (Coreg) 12.5 mg PO BID [facility] Stop: 03/21/18 16:59 Last Admin: 02/15/18 17:14 Dose: Not Given Chlorhexidine Gluconate (Peridex) 15 ml MM 0800,1999 [facility] Stop: 03/27/18 07:59 Last Admin: 02/16/18 08:28 Dose: 15 ml Dextrose (D50w) 50 ml IVP PRN PRN PRN Reason: HYPOGLYCEMIA Stop: 03/21/18 16:07 Last Admin: 02/15/18 23:53 Dose: 50 ml Diltiazem HCl (Cardizem) 60 mg PO Q8HR [facility] Stop: 04/10/18 20:59 Last Admin: 02/16/18 05:22 Dose: Not Given Enalaprilat (Vasotec) 2.5 mg IVP Q6HR PRN PRN Reason: SBP ABOVE 160 Stop: 03/25/18 11:59 Last Admin: 02/13/18 03:41 Dose: 2.5 mg Glucagon (Glucagen) 1 mg IVP PRN PRN PRN Reason: HYPOGLYCEMIA Stop: 03/21/18 16:25 Hydrocortisone Sodium Succinate (Solu-Cortef) 100 mg IVP Q8HR [facility] Stop: 04/12/18 16:59 Last Admin: 02/16/18 05:24 Dose: 100 mg Metronidazole (Flagyl) 500 mg in 100 mls @ 100 mls/hr IV Q8H [facility] Stop: 04/13/18 15:59 Last Admin: 02/16/18 08:27 Dose: 100 mls/hr Piperacillin Sod/Tazobactam (Sod 2.25 gm/ Sodium Chloride) 50 mls @ 100 mls/hr IV Q8H [facility] Stop: 04/16/18 16:59 Last Infusion: 02/16/18 01:59 Dose: Infused Norepinephrine Bitartrate 8 mg (/ Dextrose) 250 mls @ 56.25 mls/hr IV TITR PRN ; Protocol; 30 MCG/MIN PRN Reason: BP MAINTENANCE (PER PROTOCOL) Stop: 04/16/18 21:32 Last Admin: 02/16/18 06:43 Dose: 30 mcg/min, 56.25 mls/hr Phenylephrine HCl 50 mg/ (Sodium Chloride) 250 mls @ 30 mls/hr IV TITR [facility]; 100 MCG/MIN PRN Reason: Protocol Stop: 04/16/18 22:29 Last Admin: 02/16/18 06:08 Dose: 160 mcg/min, 48 mls/hr Dextrose (Dextrose 10%) 1,000 mls @ 50 mls/hr IV .Q20H [facility] Stop: 04/17/18 00:29 Last Admin: 02/16/18 00:43 Dose: 50 mls/hr Insulin Aspart (Novolog Insulin Sliding Scale) 0 units SUBQ Q6HR [facility] PRN Reason: Protocol Stop: 03/27/18 00:00 Last Admin: 02/16/18 05:46 Dose: Not Given Losartan Potassium (Cozaar) 100 mg PO DAILY [facility] Stop: 04/02/18 16:59 Last Admin: 02/15/18 09:00 Dose: Not Given Magnesium Hydroxide (Milk Of Magnesia) 30 ml PO DAILY PRN PRN Reason: IF NO BM IN TWO DAYS Stop: 03/21/18 16:07 Metoprolol Tartrate (Lopressor) 5 mg IV Q4H PRN PRN Reason: Tachycardia Stop: 03/25/18 12:29 Miscellaneous (Misc Oral Tab) 1 tab PO BID [facility] Stop: 02/16/18 16:59 Last Admin: 02/15/18 17:29 Dose: Not Given Miscellaneous (Vancomycin Iv Per Pharmacy) 1 ea PRN [facility] Stop: 04/16/18 16:44 Miscellaneous (Clinical Monitoring) 1 ea PRN PRN PRN Reason: ZOSYN RENAL DOSE Stop: 04/16/18 17:01 Multivitamins/Vitamin C (Theragran) 1 tab PO DAILY [facility] Stop: 03/22/18 08:59 Last Admin: 02/15/18 09:00 Dose: Not Given Ondansetron HCl (Zofran Odt) 4 mg PO Q6H PRN PRN Reason: Nausea / Vomiting Stop: 03/21/18 16:07 Pantoprazole Sodium (Protonix) 40 mg NG DAILY [facility] Stop: 03/28/18 16:59 Last Admin: 02/15/18 09:00 Dose: Not Given Prednisone (Deltasone) 10 mg PO DAILY [facility] Stop: 03/22/18 08:59 Last Admin: 02/15/18 09:00 Dose: Not Given Sodium Phosphate (Fleet Enema) 135 ml RC DAILY PRN PRN Reason: Constipation Stop: 03/21/18 16:07 Vitamin A (Vitamin A & D) 5 gm TP DAILY [facility] Stop: 03/22/18 08:59 Last Admin: 02/15/18 17:23 Dose: 5 gm General: no acute distress, well developed, well nourished HEENT: atraumatic, normocephalic, PERRLA, EOMI Neck: supple, no thyromegaly, no lymphadenopathy Cardiovascular: S1S2, regular Lungs: clear to auscultation bilaterally, clear to percussion, crackles Abdomen: soft, no tender, no distended Extremities: no cyanosis, no clubbing, no edema Neurological: awake, alert, oriented, CN 2-12 intact Skin: intact - Procedures Procedures: Procedures Procedure Code Date BYPASS TRACHEA TO CUTANEOUS WITH TRACH DEV, OPEN APPROACH [id number] 01/20/[address] GASTROSTOMY TUBE 66835 01/20/18 INCISION OF WINDPIPE 93539 01/20/18 INSERT EMERGENCY AIRWAY 50238 01/20/18 INSERTION OF ENDOTRACHEAL AIRWAY INTO TRACHEA, VIA OPENING [id number] 01/20/18 INSERTION OF FEEDING DEVICE INTO STOMACH, PERC APPROACH [id number] 01/20/18 RESPIRATORY VENTILATION, GREATER THAN 96 CONSECUTIVE HOURS [id number] 01/20/18 VENT MGMT INPAT INIT DAY 76972 01/20/18 Infectious Disease Assmt/Plan - Problem List Patient Problems: All Active Problems Dementia (Acute) F03.90 ELEVATED WBC, LUNG INFILTRATES (Acute) Leukocytosis (Acute) D72.829 Pneumonia (Acute) J18.9 - Assessment Assessment: 1. Leukopenia resolved. 2. Pneumonia.RLL (new). 3. Dementia 4. S/p CP arrest. 5. Anoxic encephalopathy. 6. VDRF. 7. Increaing creatinine. LAURENCE. oliguric. 8. pulmonary aspergillosis. - Plan Plan: Start vanco and zosyn. Continue flagyl. blood cs and sputum cs rectal tube. Grave prognosis. Nutritional Asmnt/Malnutr-PDOC - Dietary Evaluation Malnutrition Findings (Please click <Entered> for more info): Nutritional Asmnt/Malnutrition Start: 01/21/18 16: 32 Text: Status: Complete Freq: Document 01/21/18 16:32 LCHENG (Rec: 01/21/18 16:48 LCHENG [email or web address]) Nutritional Asmnt/Malnutrition Patient General Information Nutritional Screening High Risk Consult Diagnosis left lung infiltrate Pertinent Medical Hx/Surgical Hx dementia, HTN, hyperlipidemia per ER notes, no H&P at this time Subjective Information Pt seen sleeping at time of visit, not able to wake up for lunch. Per [employer], pt only had cereal and scrambled eggs this morning, not able to chew the Swiss toast d/t weakness. Current Diet Order/ Nutrition Support low cholesterol 300gm Pertinent Medications D5-0.45ns, novolog, megace, theragran, piperacillin, vit A &D Pertinent Labs 01/21 BUN 32, Glucose 180, POC 142-261 01/20 A1c 5.1, POC 127-165 Nutritional Hx/Data Height 1.6 m Height (Calculated Centimeters) 160.0 Current Weight (lbs) 37.648 kg Weight (Calculated Kilograms) 37.6 Weight (Calculated Grams) 94879.2 [place] Body Weight 115 Body Mass Index (BMI) 14.7 Weight Status Underweight GI Symptoms GI Symptoms None Last BM none Difficult in: None Skin Integrity/Comment: reddened to vagina and coccyx Current %PO Poor (25-49%) Estimated Nutritional Goals Calories/Kcals/Kg 25-30 Kcals Calculated 3301-5578 Protein g/k Protein Calculated 52 Fluid: ml 1300-1560ml (1ml/kcal) Nutritional Problem 2. Problem Problem chewing difficulty Etiology weakness, sleepy Signs/Symptoms: pt need for mech soft diet 1. Problem Problem altered nutrition related lab values Etiology hyperglycemia Signs/Symptoms: Glucose 180, POC 127-261 Intervention/Recommendation Comments 1. Recommend Mech soft ground diet with Boost BID to increase nutrition intake. 2. Monitor PO intake, wt, labs and skin integrity 3. F/U as high risk in 2-3 days, 01/23-01/24 Expected Outcomes/Goals Expected Outcomes/Goals 1. PO intake to meet at least 75% of nutritional needs. 2. Wt stability, skin to remain intact, labs to approach WNL.
[2018-02-16] MEDS: Vitamin A/Vitamin D 5 gm Packet TP SCH (09:21)
[2018-02-16] MEDS: VORICONAZOLE 200 MG PO SCH (09:21)
[2018-02-16] MEDS: Multivitamin Tab PO SCH (09:21)
[2018-02-16] MEDS: Pantoprazole 40 mg/Packet NG SCH (09:21)
--- NOTE | 2018-02-16 10:00 | Diagnostic Imaging Report ---
Exam: Portable chest x-ray HISTORY: Shortness of breath. Findings: Portable summation of the chest at 1534 hours reviewed and compared to prior study of [phone] demonstrates bilateral basilar infiltrates with superimposed right pleural effusion. Tracheostomy tube and bilateral subclavian catheter unchanged appearance. Mediastinal structures midline the aortic arch calcified. Bony thorax is intact. COPD changes are noted. IMPRESSION: 1. COPD changes Bilateral basilar infiltrates, superimposed right pleural effusion. Follow-up examination is recommended.
[2018-02-16] MEDS: Dextrose 50% 50 mL Abboject IVP PRN (11:58)
[2018-02-16] MEDS ORDERED: Sodium Bicarbonate 8.4% 50mEq PFS IVP ONE ×2 (12:00→12:04)
[2018-02-16 12:13] LABS: HEP A AB IGM Negative (Negative); HEP B CORE IGM Negative (Negative); HEP B SURFACE AG QL Negative (Negative); HEP C ANTIBODY <0.1 s/co ratio (0.0-0.9)
--- NOTE | 2018-02-16 12:50 | Progress Notes ---
DATE: 02/16/2018 SUBJECTIVE: The patient was seen in ICU. The patient remains to be obtunded, specially on multiple vasopressors. OBJECTIVE: VITAL SIGNS: Temperature 97.4, heart rate of 86, blood pressure 95/52, 94% saturation on 100% FIO2 with the respiration of 20. HEENT: Head is atraumatic and normocephalic. Eyes: Bilateral pupils are sluggish. NECK: Supple. The patient has a tracheostomy connected to ventilator. CARDIOVASCULAR: S1 and S2 without murmur. PULMONARY: Fine scattered rhonchi noted. GASTROINTESTINAL: Soft and nontender without guarding. Positive bowel sounds. GENITOURINARY: The patient has a gastrostomy tube in place. MUSCULOSKELETAL: Positive edema in upper and lower extremities noted. ASSESSMENT: 1. Respiratory failure, ventilator dependent. 2. Dementia. 3. Dysphagia. 4. Pneumonia. 5. Chronic kidney disease. 6. Sepsis. PLAN: We will continue to keep the patient in ICU. The patient's current condition is critical. Continue current treatment. Treatment plans were discussed with the patient's nurse. Treatment plans were discussed with Dr. Casanova. JOB# [id number]
--- NOTE | 2018-03-02 01:50 | Discharge Summary ---
DATE OF DISCHARGE: 02/16/2018 EXPIRATION SUMMARY The patient on 02/16. An unfortunate 82-year-old female, who came from [facility] admitted for sepsis, aspiration pneumonia, leukocytosis and dementia. The patient unfortunately deteriorated requiring to have intubation which led further to tracheostomy because we were unable to extubate her. The patient had a tracheostomy and PEG placed. She was in ICU for a long time and had pulmonary consultation, cardiology consultation, ID consultation. Unfortunately, the patient deteriorated requiring vasopressors and eventually the patient succumbed to her illness. The patient on 02/16 at 1345. FINAL DIAGNOSES: Fatal cardiopulmonary arrest secondary to septic shock secondary to aspiration pneumonia and history of dementia. [facility]# [id number]
== END 2018-02-16 13:45 | disposition expired | DRG 4 ==
LOC: ER 11:53 → TELE 14:17 → ICU 01-24 17:36
PROVIDERS: ADMIT Internal Medicine; ATTEND Internal Medicine
PROC: 5A09457 Assistance with Respiratory Ventilation, 24-96 Consecutive Hours, Continuous Positive Airway Pressure (ICD-10-PCS; 2018-01-22)
PROC: 5A1955Z Respiratory Ventilation, Greater than 96 Consecutive Hours (ICD-10-PCS; principal; 2018-01-24)
PROC: 0BH17EZ Insertion of Endotracheal Airway into Trachea, Via Natural or Artificial Opening (ICD-10-PCS; 2018-01-24)
PROC: 5A12012 Performance of Cardiac Output, Single, Manual (ICD-10-PCS; 2018-01-29)
PROC: 30233N1 Transfusion of Nonautologous Red Blood Cells into Peripheral Vein, Percutaneous Approach (ICD-10-PCS; 2018-01-30)
PROC: 02HV33Z Insertion of Infusion Device into Superior Vena Cava, Percutaneous Approach (ICD-10-PCS; 2018-01-30)
PROC: B548ZZA Ultrasonography of Superior Vena Cava, Guidance (ICD-10-PCS; 2018-01-30)
PROC: 5A1D70Z Performance of Urinary Filtration, Intermittent, Less than 6 Hours Per Day (ICD-10-PCS; 2018-01-30)
PROC: 5A1D70Z Performance of Urinary Filtration, Intermittent, Less than 6 Hours Per Day (ICD-10-PCS; 2018-02-01)
PROC: 02PYX3Z Removal of Infusion Device from Great Vessel, External Approach (ICD-10-PCS; 2018-02-01)
PROC: 02HV33Z Insertion of Infusion Device into Superior Vena Cava, Percutaneous Approach (ICD-10-PCS; 2018-02-01)
PROC: 02HV33Z Insertion of Infusion Device into Superior Vena Cava, Percutaneous Approach (ICD-10-PCS; 2018-02-02)
PROC: B548ZZA Ultrasonography of Superior Vena Cava, Guidance (ICD-10-PCS; 2018-02-02)
PROC: 30233R1 Transfusion of Nonautologous Platelets into Peripheral Vein, Percutaneous Approach (ICD-10-PCS; 2018-02-03)
PROC: 5A1D70Z Performance of Urinary Filtration, Intermittent, Less than 6 Hours Per Day (ICD-10-PCS; 2018-02-04)
PROC: 5A1D70Z Performance of Urinary Filtration, Intermittent, Less than 6 Hours Per Day (ICD-10-PCS; 2018-02-06)
PROC: 5A1D70Z Performance of Urinary Filtration, Intermittent, Less than 6 Hours Per Day (ICD-10-PCS; 2018-02-06)
PROC: 0B110F4 Bypass Trachea to Cutaneous with Tracheostomy Device, Open Approach (ICD-10-PCS; 2018-02-07)
PROC: 0DH63UZ Insertion of Feeding Device into Stomach, Percutaneous Approach (ICD-10-PCS; 2018-02-07)
PROC: 0DB98ZX Excision of Duodenum, Via Natural or Artificial Opening Endoscopic, Diagnostic (ICD-10-PCS; 2018-02-07)
PROC: 0DB68ZX Excision of Stomach, Via Natural or Artificial Opening Endoscopic, Diagnostic (ICD-10-PCS; 2018-02-07)
PROC: 5A1D70Z Performance of Urinary Filtration, Intermittent, Less than 6 Hours Per Day (ICD-10-PCS; 2018-02-11)
PROC: 5A1D70Z Performance of Urinary Filtration, Intermittent, Less than 6 Hours Per Day (ICD-10-PCS; 2018-02-12)
PROC: 5A1D70Z Performance of Urinary Filtration, Intermittent, Less than 6 Hours Per Day (ICD-10-PCS; 2018-02-15)
DX: A41.9 Sepsis, unspecified organism (principal); R65.21 Severe sepsis with septic shock; J18.1 Lobar pneumonia, unspecified organism; J96.01 Acute respiratory failure with hypoxia; J18.9 Pneumonia, unspecified organism; N17.9 Acute kidney failure, unspecified; E46 Unspecified protein-calorie malnutrition; B44.1 Other pulmonary aspergillosis; G93.1 Anoxic brain damage, not elsewhere classified; J44.0 Chronic obstructive pulmonary disease with (acute) lower respiratory infection; B37.49 Other urogenital candidiasis; Z68.1 Body mass index [BMI] 19.9 or less, adult; Z99.11 Dependence on respirator [ventilator] status; I46.9 Cardiac arrest, cause unspecified; I48.0 Paroxysmal atrial fibrillation; R13.10 Dysphagia, unspecified; Y95 Nosocomial condition; K29.80 Duodenitis without bleeding; K29.50 Unspecified chronic gastritis without bleeding; J33.8 Other polyp of sinus; N18.9 Chronic kidney disease, unspecified; I12.9 Hypertensive chronic kidney disease with stage 1 through stage 4 chronic kidney disease, or unspecified chronic kidney disease; E86.0 Dehydration; L89.152 Pressure ulcer of sacral region, stage 2; D63.8 Anemia in other chronic diseases classified elsewhere; G30.9 Alzheimer's disease, unspecified; F02.80 Dementia in other diseases classified elsewhere, unspecified severity, without behavioral disturbance, psychotic disturbance, mood disturbance, and anxiety; E78.5 Hyperlipidemia, unspecified; M81.0 Age-related osteoporosis without current pathological fracture; E11.22 Type 2 diabetes mellitus with diabetic chronic kidney disease; R32 Unspecified urinary incontinence; Z91.048 Other nonmedicinal substance allergy status; Z79.899 Other long term (current) drug therapy
CPT/HCPCS: 36415-UA; 36600-90; 70450-TC; 71045-TC; 80048-TC; 80053-TC; 80061-TC; 80074-90; 80076-TC; 80202-TC; 81001-TC; 81015-TC; 82270-TC; 82533-90; 82570-TC; 82728-90; 82803-TC; 82947-TC; 82948-90; 83036-90; 83540-90; 83550-90; 83605; 83690-TC; 83735-TC; 83880-TC; 83930-90; 84100-TC; 84300-TC; 84439-90; 84443-TC; 84484-TC; 84550-TC; 85007-TC; 85025-TC; 85027-TC; 85610-TC; 85730-TC; 86141-TC; 86850-TC; 86900-TC; 86901-TC; 86922-TC; 87070; 87086-90; 87230-TC; 88305-90; 88312-90; 90799; 90937; 92950; 93005; 94002; 94003; 94640; 94660; 94760; 96375; C9113; J0171; J0461; J0610; J0690; J1200; J1644; J1650; J1720; J1815; J1940; J2001; J2185; J2250; J2370; J2543; J2704; J2920; J2997; J3370; J3475; J3480; J7030; J7040; J7042; J7070; J7613; J7799; P9016; P9035; P9046; X6452; Z7506; Z7610